=== PATIENT | female | born 1945 | race American Indian/Alaskan Native ===

== ENCOUNTER 2017-05-22 02:13 | Emergency (ER) | payer MEDICARE, OTHER ==
--- NOTE | 2017-05-22 03:51 | XRay Report ---
FINAL REPORT PROCEDURE: XR ANKLE 3+V RT TECHNIQUE: RIGHT ankle radiographs, AP, lateral, and oblique views. CPT 75133 HISTORY: pain to rt ankle x 2 days, old Fx, get report COMPARISON: No prior studies are available for comparison. FINDINGS: There is been previous internal fixation. A plate and multiple screws stabilize distal fibula. Four screws traverse the region of the distal tibia. No acute fracture is identified. Mild soft tissue swelling diffusely IMPRESSION: Previous internal fixation of a right ankle fracture. No acute fracture is identified. Mild diffuse soft tissue swelling..
--- NOTE | 2017-05-22 03:52 | XRay Report ---
FINAL REPORT PROCEDURE: XR FOOT 3+V RT TECHNIQUE: RIGHT foot radiographs, AP, lateral, and oblique views. CPT 97400 HISTORY: pain to rt ankle x 2 days, old Fx, get report COMPARISON: No prior studies are available for comparison. FINDINGS: Fracture (s) and/or Dislocation(s): No acute fracture or dislocation. Previous internal fixation of the distal tibia and fibula.. Alignment: Normal . Joint space(s): Normal . Soft tissues: Mild diffuse soft tissue swelling. Bone mineralization: Normal . Foreign bodies: None . Calcaneal spurring: None . IMPRESSION: There is no evidence of an acute fracture of the foot. Mild diffuse soft tissue swelling..
[2017-05-22] MEDS ORDERED: MOTRIN PO ONE (05:12)
--- NOTE | 2017-05-22 05:12 | Emergency Department Report ---
ED Lower Extremity HPI - General Chief Complaint: Extremity Injury, Lower Stated Complaint: RIGHT ANKLE PAIN Time Seen by Provider: 05/22/17 05:11 Source: patient, EMS Mode of arrival: Stretcher Limitations: No Limitations - History of Present Illness Initial Comments: Patient reports that she fractured her ankle and had surgery that was done by Dr. Babatunde Miller. She says she is experiencing an increase in pain to the old fracture site of her right foot for the past 2 days that is worse at night. She says she follows up with Dr. Miller's office and they're supposed to be ordering her a walker, medical supplies and they're not doing what they're supposed to do. She states she took the ambulance here because she was in pain. She says she was on Ultram that Dr. Miller put her on but she doesn't have anymore. Patient says she is allergic to codeine but she is taken tramadol after her surgery. Pain is worse with movement better with rest. Patient is wearing orthopedic boot. Denies any radiation of pain to upper extremity pain is localized to right ankle. Patient denies any new injury and denies any falling. MD Complaint: other (right ankle pain) Onset/Timin -: days(s) Injury: Ankle: Right (pain) Type of Injury: other (patient fractured her ankle previously and she is wearing up for splint and and been followed by Dr. Miller) Place: home Severity: severe Severity scale (0 -10): 8 Improves With: immobilization, rest Worsens With: weight bearing, movement, palpation Context: other (status post surgery with ankle splint) Associated Symptoms: able to partially bear weight. denies: snap/pop sensation , swelling, numbness, tingling, ambulatory Treatments Prior to Arrival: splint - Related Data Previous Rx's Medication Instructions Recorded Last Taken Type Multivitamin Tab [Multiple Vitamin 1 each PO QDAY 30 Days tablet 12/03/1401/04 Rx TAB (Theragran)] HYDROcodone/APAP 7.5-325 [[place] 1 each PO Q8HR PRN #15 tablet 01/05/17 Unknown Rx 7.5-325 mg TAB] Ibuprofen [Motrin] 800 mg PO Q8HR PRN #15 tablet 01/05/17 Unknown Rx Ondansetron [Zofran TAB] 4 mg PO Q8HR PRN #15 tablet 01/05/17 Unknown Rx Folic Acid [Folvite] 1 mg PO QDAY #30 tablet 01/10/17 Unknown Rx Sertraline [Zoloft] 25 mg PO QDAY 30 Days tablet 01/10/17 Unknown Rx Thiamine [Vitamin B-1] 100 mg PO QDAY #30 tablet 01/10/17 Unknown Rx traZODone [Desyrel] 50 mg PO QHS #30 tablet 01/10/17 Unknown Rx traMADol [Ultram] 50 mg PO Q6HR PRN #12 tablet 05/22/17 Unknown Rx Allergies Allergy/AdvReac Type Severity Reaction Status Date / Time codeine Allergy Swelling Verified 12/02/14 05:36 penicillin Allergy Swelling Verified 12/02/14 05:36 ibuprofen [From Motrin] AdvReac Unknown Verified 05/22/17 05:58 ED Review of Systems ROS: Stated complaint: RIGHT ANKLE PAIN Other details as noted in HPI Comment: All other systems reviewed and negative Constitutional: no symptoms reported ENT: denies: dental pain, congestion Respiratory: no symptoms reported Cardiovascular: denies: chest pain, palpitations, dyspnea on exertion, orthopnea , edema, syncope, paroxysmal nocturnal dyspnea Genitourinary: denies: urgency, dysuria, frequency, hematuria, discharge Musculoskeletal: joint swelling, arthralgia. denies: back pain, myalgia Skin: denies: rash Neurological: abnormal gait. denies: headache, weakness, numbness, paresthesias , confusion, vertigo ED Past Medical Hx - Past Medical History Previous Medical History?: Yes Hx Hypertension: Yes Hx Psychiatric Treatment: Yes Hx HIV: No Additional medical history: hypothyroidism - Surgical History Past Surgical History?: Yes Hx Cholecystectomy: Yes - Family History Family history: hypertension - Social History Smoking Status: Never Smoker Substance Use Type: None - Medications Home Medications: Home Medications Medication Instructions Recorded Confirmed Last Taken Type Multivitamin Tab [Multiple Vitamin 1 each PO QDAY 30 Days tablet 12/03/1401/0701/04/17 Rx TAB (Theragran)] HYDROcodone/APAP 7.5-325 [[place] 1 each PO Q8HR PRN #15 tablet 01/05/17 Unknown Rx 7.5-325 mg TAB] Ibuprofen [Motrin] 800 mg PO Q8HR PRN #15 tablet 01/05/17 Unknown Rx Ondansetron [Zofran TAB] 4 mg PO Q8HR PRN #15 tablet 01/05/17 Unknown Rx Folic Acid [Folvite] 1 mg PO QDAY #30 tablet 01/10/17 Unknown Rx Sertraline [Zoloft] 25 mg PO QDAY 30 Days tablet 01/10/17 Unknown Rx Thiamine [Vitamin B-1] 100 mg PO QDAY #30 tablet 01/10/17 Unknown Rx traZODone [Desyrel] 50 mg PO QHS #30 tablet 01/10/17 Unknown Rx traMADol [Ultram] 50 mg PO Q6HR PRN #12 tablet 05/22/17 Unknown Rx ED Physical Exam - General Limitations: No Limitations General appearance: alert, in no apparent distress - Head Head exam: Present: atraumatic, normocephalic, normal inspection - Eye Eye exam: Present: normal appearance, PERRL, EOMI. Absent: periorbital swelling , periorbital tenderness Pupils: Present: normal accommodation - ENT ENT exam: Present: normal exam, normal orophraynx, mucous membranes moist - Neck Neck exam: Present: normal inspection, full ROM, other (no C-spine tenderness). Absent: tenderness, meningismus, lymphadenopathy, thyromegaly - Respiratory Respiratory exam: Present: normal lung sounds bilaterally. Absent: respiratory distress, chest wall tenderness, accessory muscle use - Cardiovascular Cardiovascular Exam: Present: normal rhythm, tachycardia, normal heart sounds, other (elevated blood pressure with 5 blood pressure). Absent: systolic murmur , diastolic murmur - GI/Abdominal GI/Abdominal exam: Present: soft, normal bowel sounds. Absent: distended, tenderness, guarding, rebound, rigid, organomegaly, mass, bruit, pulsatile mass , hernia - Extremities Exam Extremities exam: Present: tenderness, normal capillary refill, other (no clubbing cyanosis or edema. +2 pulses all extremities. No neurovascular compromise. Patient with limited movement to right ankle due to fracture and she has splints to area. She has good color, sensation movement and temperature to area.). Absent: normal inspection, full ROM, pedal edema, joint swelling, calf tenderness - Expanded Lower Extremity Exam Right Hip exam: Present: normal inspection, full ROM, pelvic stability. Absent: tenderness, swelling, abrasion, laceration, ecchymosis, deformity, crepidus, dislocation, erythema, external rotation, internal rotation, shortening Upper Leg exam: Present: normal inspection, full ROM. Absent: tenderness, swelling, abrasion, laceration, ecchymosis, deformity, crepidus, dislocation, erythema Knee exam: Present: normal inspection, full ROM, full knee extension. Absent: tenderness, swelling, abrasion, laceration, ecchymosis, deformity, crepidus, dislocation, erythema, effusion, pain w/ pronation/supination, posterior draw sign, pain/laxity with valgus, pain/laxity with varus Lower Leg exam: Present: normal inspection, full ROM. Absent: tenderness, swelling, abrasion, laceration, ecchymosis, deformity, crepidus, dislocation, erythema, palpable cord, Jose's sign Ankle exam: Present: tenderness (tender to palpate to right ankle.). Absent: normal inspection, full ROM (admitted range of motion to right ankle due to recent fracture with splinting.), swelling, abrasion, laceration, ecchymosis, deformity, crepidus, dislocation, erythema Foot/Toe exam: Present: normal inspection, full ROM. Absent: tenderness, swelling, abrasion, laceration, ecchymosis, deformity, crepidus, dislocation, erythema, amputation, puncture wound, foreign body, calcaneal tenderness, tenderness at base of 5th metatarsal, nail avulsion, subungual hematoma Neuro vascular tendon exam: Present: no vascular compromise, motor deficit ( limited movement due to pain and ankle fracture.), significant pain with passive ROM of distal joint. Absent: pulse deficit, abnormal cap refill, sensory deficit, tendon deficit, extremity cold to touch, pallor, abnormal 2- point discrimination, decreased fine/light touch, foot drop, peroneal nerve deficit Gait: Positive: antalgic - Back Exam Back exam: Present: normal inspection, full ROM, other (patient able to ambulate with walker without any difficulties.). Absent: tenderness, CVA tenderness (R), CVA tenderness (L), muscle spasm, paraspinal tenderness, vertebral tenderness, rash noted - Neurological Exam Neurological exam: Present: alert, oriented X3, abnormal gait (abnormal gait to left lower extremity at ankle and foot due to previous fracture in the healing process patient has splint on.), motor sensory deficit (sensory deficit but patient had limited movement to left ankle due to recent fracture and splinted) , reflexes normal - Psychiatric Psychiatric exam: Present: normal affect, normal mood - Skin Skin exam: Present: warm, dry, intact, normal color. Absent: rash ED Course Vital Signs 05/22/17 05/22/17 02:16 06:34 Temperature 98.1 F 97.7 F Pulse Rate 108 H 97 H Respiratory 20 20 Rate Blood Pressure 158/113 Blood Pressure 143/93 [Right] O2 Sat by Pulse 98 100 Oximetry - Reevaluation(s) Reevaluation #1: 05/22/17 06:23 Patient received Motrin 600 mg Reevaluation #2: 05/22/17 07:00 Patient received Ultram 50 mg by mouth prior to discharge due to pain. - Orthopedic Splinting/Casting Injury #1 Side: right Lower Extremity Injury Location: ankle, foot Other Orthopedic Equipment: walker ED Lower Extremity MDM - Radiology Data Radiology results: report reviewed X-ray of right foot reveals no evidence of fracture or dislocation but she does have soft tissue swelling. X-ray of right ankle reveals internal fixation of right ankle fracture. No acute fracture and mild soft tissue swelling identified. - Medical Decision Making ED course: A CT scan here status post ankle pain for 2 days. She has had ankle fracture to her right ankle in the past with evidence of internal fixation device femur x-ray. X-ray of right foot and ankle reveals no acute fracture but patient does have internal fixation device to right ankle and she has diffuse, mild soft tissue swelling to both right ankle and foot. His was discussed patient. She does have a boot as a splint on and she's been followed by Dr. Miller's. She reported that she is having increasing pain over the last 2 days without any new injuries. She says that she's been trying to have Dr. Miller office set up for a walker and commode and other devices but they're taking a long time to do it. She says she was in tramadol after surgery despite being allergic to codeine and she is also also taken ibuprofen which she says she is allergic to also. Her allergic to ibuprofen is nausea with stomach upset. She had ibuprofen in emergency room 600 mg without any adverse reaction. Patient took ambulance to the emergency room because she states she didn't have any other way and worse been set up for her to go back home. Patient discharged from ED with prescription for Ultram and she was given a walker and demonstrated use which she uses very well. I discussed with her that she needs to call Dr. Miller office later this morning to get follow-up appointment and to set up for other equipment that she needed. Critical care attestation.: If time is entered above; I have spent that time in minutes in the direct care of this critically ill patient, excluding procedure time. ED Disposition Clinical Impression: Pain in right ankle and joints of right foot, H/O fracture of ankle Disposition: TO HOME OR SELFCARE Is pt being admited?: No Does the pt Need Aspirin: No Condition: Stable Instructions: Splint Care (ED), Arthralgia (ED) Additional Instructions: Please follow up with Dr. Miller orthopedist Dr. quiñonez later this morning at schedule appointment Take Ultram for pain but please do not drive or operate heavy machinery while doing this because this medication cause drowsiness Prescriptions: traMADol [Ultram] 50 mg PO Q6HR PRN #12 tablet PRN Reason: Pain Referrals: LC DODD MD [Primary Care Provider] - 2-3 Days BABATUNDE MILLER MD [Staff Physician] - 05/24/17
[2017-05-22] MEDS ORDERED: ULTRAM ONE (06:43)
[2017-05-22] MEDS ORDERED: ULTRAM PO ONE (06:44)
[2017-05-22 06:58] VITALS: BP 143/93
== END 2017-05-22 10:30 | disposition home or self-care (01) ==
LOC: ED 02:13
DX: M25.571 Pain in right ankle and joints of right foot (principal); I10 Essential (primary) hypertension; E03.9 Hypothyroidism, unspecified; X58.XXXA Exposure to other specified factors, initial encounter; Y93.89 Activity, other specified; Y92.89 Other specified places as the place of occurrence of the external cause; Y99.8 Other external cause status; Z88.0 Allergy status to penicillin; Z88.5 Allergy status to narcotic agent; Z88.6 Allergy status to analgesic agent
CPT/HCPCS: 99283

== ENCOUNTER 2017-06-01 13:09 | Emergency (ER) | payer MEDICARE, OTHER ==
--- NOTE | 2017-06-01 16:26 | Emergency Department Report ---
ED Shortness of Breath HPI - General Chief Complaint: Dyspnea/Respdistress Stated Complaint: CHEST PAIN Time Seen by Provider: 06/01/17 16:10 Source: EMS Mode of arrival: Stretcher Limitations: No Limitations - History of Present Illness Initial Comments: 72-year-old female poor historian here stating that she started having shortness of breath or chest pain this morning. She is not sure if it was sudden in onset and gradual she did have recent surgery on her lower extremity the last several months. She has had some intermittent lower extremity pain. She is here for evaluation of shortness of breath and chest pain that she had earlier this morning and her neighbor called 911. She does smoke she has a history of hypertension and thyroid problems she denies any history of inhaler COPD or asthma, no recent fever no cough no recent travel, not sure what makes it betrter or worse MD Complaint: shortness of breath, chest pain Severity: mild, moderate Quality: sharp Worsens With: nothing Context: recent URI Associated Symptoms: chest pain, lower extremity pain - Related Data Previous Rx's Medication Instructions Recorded Last Taken Type Multivitamin Tab [Multiple Vitamin 1 each PO QDAY 30 Days tablet 12/03/1401/04 Rx TAB (Theragran)] HYDROcodone/APAP 7.5-325 [[place] 1 each PO Q8HR PRN #15 tablet 01/05/17 Unknown Rx 7.5-325 mg TAB] Ibuprofen [Motrin] 800 mg PO Q8HR PRN #15 tablet 01/05/17 Unknown Rx Ondansetron [Zofran TAB] 4 mg PO Q8HR PRN #15 tablet 01/05/17 Unknown Rx Folic Acid [Folvite] 1 mg PO QDAY #30 tablet 01/10/17 Unknown Rx Sertraline [Zoloft] 25 mg PO QDAY 30 Days tablet 01/10/17 Unknown Rx Thiamine [Vitamin B-1] 100 mg PO QDAY #30 tablet 01/10/17 Unknown Rx traZODone [Desyrel] 50 mg PO QHS #30 tablet 01/10/17 Unknown Rx traMADol [Ultram] 50 mg PO Q6HR PRN #12 tablet 05/22/17 Unknown Rx ALBUTEROL Inhaler [ProAir HFA 1 puff IH TID PRN #1 inha 06/01/17 Unknown Rx Inhaler] Sulfamethoxazole/Trimethoprim 1 each PO BID #14 tablet 06/01/17 Unknown Rx [Bactrim DS TAB] predniSONE [Deltasone] 50 mg PO QDAY #5 tab 06/01/17 Unknown Rx Allergies Allergy/AdvReac Type Severity Reaction Status Date / Time codeine Allergy Swelling Verified 12/02/14 05:36 penicillin Allergy Swelling Verified 12/02/14 05:36 ibuprofen [From Motrin] AdvReac Unknown Verified 05/22/17 05:58 ED Review of Systems ROS: Stated complaint: CHEST PAIN Other details as noted in HPI ED Past Medical Hx - Past Medical History Hx Hypertension: Yes Hx Psychiatric Treatment: Yes Hx HIV: No Additional medical history: hypothyroidism - Surgical History Hx Cholecystectomy: Yes - Social History Smoking Status: Current Some Day Smoker Substance Use Type: None - Medications Home Medications: Home Medications Medication Instructions Recorded Confirmed Last Taken Type Multivitamin Tab [Multiple Vitamin 1 each PO QDAY 30 Days tablet 12/03/1401/0701/04/17 Rx TAB (Theragran)] HYDROcodone/APAP 7.5-325 [[place] 1 each PO Q8HR PRN #15 tablet 01/05/17 Unknown Rx 7.5-325 mg TAB] Ibuprofen [Motrin] 800 mg PO Q8HR PRN #15 tablet 01/05/17 Unknown Rx Ondansetron [Zofran TAB] 4 mg PO Q8HR PRN #15 tablet 01/05/17 Unknown Rx Folic Acid [Folvite] 1 mg PO QDAY #30 tablet 01/10/17 Unknown Rx Sertraline [Zoloft] 25 mg PO QDAY 30 Days tablet 01/10/17 Unknown Rx Thiamine [Vitamin B-1] 100 mg PO QDAY #30 tablet 01/10/17 Unknown Rx traZODone [Desyrel] 50 mg PO QHS #30 tablet 01/10/17 Unknown Rx traMADol [Ultram] 50 mg PO Q6HR PRN #12 tablet 05/22/17 Unknown Rx ALBUTEROL Inhaler [ProAir HFA 1 puff IH TID PRN #1 inha 06/01/17 Unknown Rx Inhaler] Sulfamethoxazole/Trimethoprim 1 each PO BID #14 tablet 06/01/17 Unknown Rx [Bactrim DS TAB] predniSONE [Deltasone] 50 mg PO QDAY #5 tab 06/01/17 Unknown Rx ED Physical Exam - General Limitations: No Limitations General appearance: alert, anxious, in distress, other (slightly dyspneic on exam complaints of intermittent shortness of breath with occasional chest pain) - Head Head exam: Present: atraumatic, normocephalic - Eye Eye exam: Present: PERRL, EOMI Pupils: Present: normal accommodation - ENT ENT exam: Present: normal exam, normal orophraynx - Neck Neck exam: Present: normal inspection. Absent: tenderness, meningismus - Respiratory Respiratory exam: Present: wheezes, rhonchi, chest wall tenderness, prolonged expiratory. Absent: stridor, accessory muscle use, decreased breath sounds - Cardiovascular Cardiovascular Exam: Present: regular rate, normal rhythm, normal heart sounds. Absent: rubs, gallop - GI/Abdominal GI/Abdominal exam: Present: soft. Absent: distended, tenderness, guarding, rebound, rigid, mass, bruit, pulsatile mass - Extremities Exam Extremities exam: Present: pedal edema, calf tenderness - Back Exam Back exam: Absent: CVA tenderness (L), muscle spasm, paraspinal tenderness, vertebral tenderness - Neurological Exam Neurological exam: Present: alert, oriented X3, CN II-XII intact. Absent: motor sensory deficit - Psychiatric Psychiatric exam: Present: normal affect. Absent: anxious, manic, homicidal ideation, suicidal ideation ED Course Vital Signs 06/01/17 06/01/17 06/01/17 14:49 15:40 15:45 Temperature Pulse Rate 104 H Respiratory 20 Rate Blood Pressure 162/92 Blood Pressure [Left] O2 Sat by Pulse 99 95 96 Oximetry 06/01/17 06/01/17 06/01/17 16:00 16:15 16:17 Temperature 97.9 F Pulse Rate 73 75 Respiratory 18 20 Rate Blood Pressure 140/89 140/89 Blood Pressure 124/80 [Left] O2 Sat by Pulse 97 Oximetry 06/01/17 06/01/17 06/01/17 16:18 16:30 17:24 Temperature Pulse Rate 77 76 Respiratory 20 16 Rate Blood Pressure 140/89 140/89 Blood Pressure [Left] O2 Sat by Pulse 97 Oximetry 06/01/17 06/01/17 06/01/17 17:31 17:45 18:00 Temperature Pulse Rate 82 84 88 Respiratory 24 13 12 Rate Blood Pressure 140/89 140/89 Blood Pressure 117/88 [Left] O2 Sat by Pulse 96 100 98 Oximetry 06/01/17 06/01/17 06/01/17 18:01 18:15 18:31 Temperature Pulse Rate 67 68 79 Respiratory 17 27 H 18 Rate Blood Pressure 117/88 140/89 140/89 Blood Pressure [Left] O2 Sat by Pulse 98 98 100 Oximetry 06/01/17 06/01/17 06/01/17 18:45 19:00 19:15 Temperature Pulse Rate 75 79 83 Respiratory 17 11 L 14 Rate Blood Pressure 140/89 115/76 115/76 Blood Pressure [Left] O2 Sat by Pulse 100 92 99 Oximetry 06/01/17 06/01/17 06/01/17 19:20 19:31 19:45 Temperature 98.1 F Pulse Rate 71 78 69 Respiratory 12 13 22 Rate Blood Pressure 117/84 117/84 Blood Pressure 117/84 [Left] O2 Sat by Pulse 100 100 100 Oximetry 06/01/17 06/01/17 06/01/17 20:00 20:15 20:31 Temperature Pulse Rate 83 81 84 Respiratory 23 25 H 20 Rate Blood Pressure 106/75 106/75 106/75 Blood Pressure [Left] O2 Sat by Pulse 100 100 Oximetry 06/01/17 06/01/17 06/01/17 20:45 21:01 21:48 Temperature Pulse Rate 74 82 78 Respiratory 20 11 L Rate Blood Pressure 106/75 106/75 106/75 Blood Pressure [Left] O2 Sat by Pulse Oximetry 06/01/17 06/01/17 06/01/17 22:00 22:15 22:35 Temperature Pulse Rate 70 69 69 Respiratory 13 20 20 Rate Blood Pressure 115/79 115/79 Blood Pressure [Left] O2 Sat by Pulse 100 100 99 Oximetry - Reevaluation(s) Reevaluation #1: 06/01/17 23:51 Patient was brought to room placed on cardiac surgeon. She did have laboratory studies and a DuoNeb as well as ultrasound bilateral as well as CTA ED Medical Decision Making - Lab Data Result diagrams: 06/01/17 16:12 06/01/17 16:12 - EKG Data -: EKG Interpreted by Dc EKG shows normal: sinus rhythm Rate: normal - EKG Data Interpretation: nonspecific ST-T wave ben, other (no acute ischemic change) - Radiology Data Radiology results: report reviewed - Medical Decision Making Patient did have improvement in symptoms with DuoNeb however with chest pain shortness of breath and recent surgery we did elect to evaluate for DVT PE. Bilateral Doppler ultrasound venous were negative on the lower extremity. She did have recent surgery. CTA was also process no PE. Troponin was negative EKG is nondiagnostic. Symptoms are consistent with atypical chest pain with likely reactive airway disease. Urinalysis does look like she probably has a UTI as well she will be discharged with antibiotics and inhaler with instructions for outpatient follow-up for further evaluation of chest pain Critical care attestation.: If time is entered above; I have spent that time in minutes in the direct care of this critically ill patient, excluding procedure time. ED Disposition Clinical Impression: Reactive airway disease, Atypical chest pain, UTI (urinary tract infection) Disposition: TO HOME OR SELFCARE Is pt being admited?: No Condition: Stable Instructions: Chest Pain (ED), Urinary Tract Infection in Women (ED), Dyspnea ( ED) Additional Instructions: Return immediately if new or alarming symptoms or call 911 see her doctor in 2 days Prescriptions: ALBUTEROL Inhaler [ProAir HFA Inhaler] 1 puff IH TID PRN #1 inha PRN Reason: Shortness Of Breath predniSONE [Deltasone] 50 mg PO QDAY #5 tab Sulfamethoxazole/Trimethoprim [Bactrim DS TAB] 1 each PO BID #14 tablet Referrals: PRIMARY CARE, [Primary Care Provider] - 3-5 Days ANNMARIE SINGH MD [Staff Physician] - 3-5 Days Time of Disposition: 00:00
[2017-06-01 16:39] LABS: Bacteria,Urine 2+ /HPF (Negative); Bilirubin,Urine SM (Negative); Blood,Urine NEG (Negative); Mucus,Urine FEW /HPF; Nitrite,Urine NEG (Negative)
[2017-06-01 16:43] LABS: Color,Urine Dark Yellow (Yellow)
[2017-06-01 16:44] LABS: Basophils % (Auto) 0.5 % (0.0-1.8); Eosinophils # (Auto) 0.1 K/mm3 (0.0-0.4); Eosinophils % (Auto) 1.7 % (0.0-4.3); Hemoglobin 14.8 gm/dl (10.1-14.3); Lymphocytes # (Auto) 2.9 K/mm3 (1.2-5.4); Lymphocytes % (Auto) 45.3 % (13.4-35.0); Mean Corpuscular HGB Conc 34 % (30-34); Mean Corpuscular Hemoglobin 37 pg (28-32); Mean Corpuscular Volume 106 fl (79-97); Monocytes # (Auto) 0.4 K/mm3 (0.0-0.8); Monocytes % (Auto) 6.7 % (0.0-7.3); Platelet Count 186 K/mm3 (140-440); Red Blood Count 4.05 M/mm3 (3.65-5.03); Red Cell Distribution Width 16.3 % (13.2-15.2)
[2017-06-01 16:45] LABS: Ictotest,Urine Negative (Negative)
[2017-06-01 16:55] LABS: BUN/Creatinine Ratio 14; Blood Urea Nitrogen 11 mg/dL (7-17); Calcium 8.8 mg/dL (8.4-10.2); Hemolysis Index 41
[2017-06-01 17:04] LABS: Partial Thromboplastin Time 25.2 Sec. (24.2-36.6)
[2017-06-01] MEDS ORDERED: DUONEB *Not for PRN Use IH ONE (17:39)
[2017-06-01] MEDS ORDERED: XANAX PO ONE (17:50)
[2017-06-01] MEDS ORDERED: KCL 10MEQ/100ML 10 MEQ/100 ML BAG IV ONE (18:37)
[2017-06-01] MEDS ORDERED: K-DUR PO ONE (18:37)
--- NOTE | 2017-06-01 19:58 | XRay Report ---
FINAL REPORT PROCEDURE: XR CHEST 1V AP TECHNIQUE: Chest radiograph anteroposterior view. CPT 91351 HISTORY: Shortness of breath. COMPARISON: No prior studies are available for comparison. FINDINGS: Heart: Normal. Mediastinum/Vessels: Aortic tortuosity. Lungs/Pleural space: Normal. Bony thorax: Mild osteopenia. Mild degenerative changes of the spine. Life support devices: None. IMPRESSION: No radiographic evidence of acute cardiopulmonary disease.
[2017-06-01] MEDS ORDERED: NACL ONE (20:20)
[2017-06-01] MEDS ORDERED: KCL 10 MEQ in NACL 0.9% 100 ML IV ONE (20:30)
[2017-06-01] MEDS ORDERED: NACL 0.9% 250ML 250 ML IV ONE (22:10)
[2017-06-01] MEDS ORDERED: NACL 0.9% 250ML 250 ML ONE (22:14)
--- NOTE | 2017-06-01 23:09 | Cat Scan Report ---
FINAL REPORT PROCEDURE: CT ANGIO CHEST TECHNIQUE: Computerized tomographic angiography of the chest was performed after the IV injection of iodinated nonionic contrast including image processing. The image data was postprocessed using 2-dimensional multiplanar reformatted (MPR) and 3-dimensional (MIP and/or volume rendered) techniques. HISTORY: dypsnea/recent surg COMPARISON: No prior studies are available for comparison. FINDINGS: The thyroid gland is not fully imaged but is bilaterally diffusely prominent and extends into upper mediastinum. Heart and pericardium: Normal. Thoracic aorta: Normal. Pulmonary vasculature: Normal. Lymph nodes: No enlarged thoracic lymph nodes. Lungs: There is linear atelectasis or scarring in bilateral lung bases. Pleural space: No effusion, thickening, or pneumothorax. Musculoskeletal structures: Multilevel degenerative disc changes of the thoracolumbar spine. Upper abdominal structures: No significant abnormality. IMPRESSION: No evidence of pulmonary emboli. Thyromegaly
[2017-06-02 00:15] VITALS: BP 122/80
--- NOTE | 2017-06-02 11:48 | Vascular Lab Report ---
LOWER EXTREMITY VENOUS DUPLEX: REASON FOR EXAM: Pain and swelling of the lower extremities; shortness of breath. COMMENTS ON THE RIGHT: All veins visualized are freely compressible without evidence of internal echogenicity. Flow is spontaneous and phasic throughout. COMMENTS ON THE LEFT: All veins visualized are freely compressible without evidence of internal echogenicity. Flow is spontaneous and phasic throughout. IMPRESSION: No evidence of acute or chronic deep venous thrombosis in either lower extremity.
== END 2017-06-02 00:52 | disposition home or self-care (01) ==
LOC: ED 13:09
DX: N39.0 Urinary tract infection, site not specified (principal); J45.909 Unspecified asthma, uncomplicated; R07.89 Other chest pain; I10 Essential (primary) hypertension; F17.200 Nicotine dependence, unspecified, uncomplicated
CPT/HCPCS: 36415; 71045; 71275; 80048; 81001; 83880; 84443; 84484; 85025; 85379; 85610; 85730; 93005; 93010; 93970; 96365; 99285; J3480; J7050; Q9967

== ENCOUNTER 2017-06-02 13:30 | Outpatient (CLI) | payer MEDICARE ==
[2017-06-02 14:32] LABS: Chol/HDL Ratio 4.17 %; Uric Acid 6.5 mg/dL (3.5-7.6)
== END 2017-06-02 13:31 | disposition home or self-care (01) ==
LOC: LAB 13:30
PROVIDERS: ATTEND Internal Medicine
DX: Z00.01 Encounter for general adult medical examination with abnormal findings (principal); I10 Essential (primary) hypertension; E03.9 Hypothyroidism, unspecified; F41.9 Anxiety disorder, unspecified; G47.00 Insomnia, unspecified; Z79.899 Other long term (current) drug therapy
CPT/HCPCS: 36415; 80061; 82607; 83036; 84436; 84550

== ENCOUNTER 2018-10-28 16:36 | Emergency (ER) | payer MEDICARE ==
[2018-10-28] MEDS ORDERED: ZOFRAN IV ONE (18:01)
[2018-10-28] MEDS ORDERED: NACL 0.9% 1000 ML 1,000 ML IV ONE ×2 (18:01→20:23)
[2018-10-28] MEDS ORDERED: PEPCID IV ONE (18:02)
[2018-10-28] MEDS ORDERED: BENTYL IM ONE (18:02)
--- NOTE | 2018-10-28 18:07 | Emergency Department Report ---
ED N/V/D HPI - General Chief complaint: Nausea/Vomiting/Diarrhea Stated complaint: VOMITING Time Seen by Provider: 10/28/18 17:55 Source: EMS Mode of arrival: Stretcher Limitations: No Limitations - History of Present Illness Initial comments: Patient is a 73-year-old female past medical history hypertension and hypothyroidism who is complaining of nausea vomiting diarrhea. Patient states that 6 days ago she began having nausea vomiting. Patient states she's vomited all day. The vomiting subsided briefly but then she started havi ng diarrhea for several days. Patient states that yesterday the vomiting returned and she was having both nausea vomiting and diarrhea. Patient states she has a burning GERD-like sensation in epigastrium and doesn't radiate into the chest intermittently. Patient states there is mild shortness of breath when she gets these episodes of burning. Patient has some crampy abdominal pain when she has a bowel movement. Patient denies any fevers chills but does state she has some weakness. Patient's was transported via EMS after a neighbor check went to check on her and found her in the bathroom of feeling ill. - Related Data Previous Rx's Medication Instructions Recorded Last Taken Type ALBUTEROL Inhaler (OR & NICU) 1 puff IH TID PRN #1 inha 04/07/18 Unknown Rx [ProAir HFA Inhaler] Acetaminophen [Acetaminophen TAB] 650 mg PO Q4H PRN #30 tablet 04/07/18 Unknown Rx AtorvaSTATin [Lipitor] 10 mg PO QHS #30 tablet 04/07/18 Unknown Rx Folic Acid [Folvite] 1 mg PO QDAY #30 tablet 04/07/18 Unknown Rx Levothyroxine [Synthroid] 150 mcg PO DAILY@0600 #30 tablet 04/07/18 Unknown Rx Multivitamin Tab [Multiple Vitamin 1 each PO QDAY 30 Days tablet 04/07/18 Unknown Rx TAB (Theragran)] Sertraline [Zoloft] 25 mg PO QDAY 30 Days tablet 04/07/18 Unknown Rx Thiamine [Vitamin B-1] 100 mg PO QDAY #30 tablet 04/07/18 Unknown Rx traZODone [Desyrel] 50 mg PO QHS #30 tablet 04/07/18 Unknown Rx ALPRAZolam [Xanax TAB] 0.25 mg PO BID PRN #10 tab 10/28/18 Unknown Rx Dicyclomine [Bentyl] 20 mg PO QID #10 tablet 10/28/18 Unknown Rx Famotidine [Pepcid] 20 mg PO BID #20 tablet 10/28/18 Unknown Rx Metoclopramide HCl [Reglan TAB] 5 mg PO TIDAC #10 tablet 10/28/18 Unknown Rx Potassium Chloride [K-Dur] 20 meq PO BID #6 tab 10/28/18 Unknown Rx Allergies Allergy/AdvReac Type Severity Reaction Status Date / Time codeine Allergy Swelling Verified 12/02/14 05:36 penicillin Allergy Swelling Verified 12/02/14 05:36 ibuprofen [From Motrin] AdvReac Unknown Verified 05/22/17 05:58 ED Review of Systems ROS: Stated complaint: VOMITING Other details as noted in HPI Comment: All other systems reviewed and negative ED Past Medical Hx - Past Medical History Hx Hypertension: Yes Hx Psychiatric Treatment: Yes Hx HIV: No Additional medical history: hypothyroidism - Surgical History Hx Cholecystectomy: Yes Additional Surgical History: R ankle, R tibia - Social History Smoking Status: Unknown if ever smoked - Medications Home Medications: Home Medications Medication Instructions Recorded Confirmed Last Taken Type ALBUTEROL Inhaler (OR & NICU) 1 puff IH TID PRN #1 inha 04/07/18 Unknown Rx [ProAir HFA Inhaler] Acetaminophen [Acetaminophen TAB] 650 mg PO Q4H PRN #30 tablet 04/07/18 Unknown Rx AtorvaSTATin [Lipitor] 10 mg PO QHS #30 tablet 04/07/18 Unknown Rx Folic Acid [Folvite] 1 mg PO QDAY #30 tablet 04/07/18 Unknown Rx Levothyroxine [Synthroid] 150 mcg PO DAILY@0600 #30 tablet 04/07/18 Unknown Rx Multivitamin Tab [Multiple Vitamin 1 each PO QDAY 30 Days tablet 04/07/18 Unknown Rx TAB (Theragran)] Sertraline [Zoloft] 25 mg PO QDAY 30 Days tablet 04/07/18 Unknown Rx Thiamine [Vitamin B-1] 100 mg PO QDAY #30 tablet 04/07/18 Unknown Rx traZODone [Desyrel] 50 mg PO QHS #30 tablet 04/07/18 Unknown Rx ALPRAZolam [Xanax TAB] 0.25 mg PO BID PRN #10 tab 10/28/18 Unknown Rx Dicyclomine [Bentyl] 20 mg PO QID #10 tablet 10/28/18 Unknown Rx Famotidine [Pepcid] 20 mg PO BID #20 tablet 10/28/18 Unknown Rx Metoclopramide HCl [Reglan TAB] 5 mg PO TIDAC #10 tablet 10/28/18 Unknown Rx Potassium Chloride [K-Dur] 20 meq PO BID #6 tab 10/28/18 Unknown Rx ED Physical Exam - General Limitations: No Limitations General appearance: alert, lethargic - Head Head exam: Present: atraumatic, normocephalic - Eye Eye exam: Present: normal appearance, PERRL, EOMI - ENT ENT exam: Present: mucous membranes moist - Neck Neck exam: Present: normal inspection, tenderness - Respiratory Respiratory exam: Present: normal lung sounds bilaterally. Absent: respiratory distress, wheezes, rales, rhonchi - Cardiovascular Cardiovascular Exam: Present: regular rate, normal rhythm, normal heart sounds. Absent: systolic murmur, diastolic murmur, rubs, gallop - GI/Abdominal GI/Abdominal exam: Present: soft, normal bowel sounds. Absent: distended, tenderness, guarding, rebound, rigid - Extremities Exam Extremities exam: Present: normal inspection - Back Exam Back exam: Present: normal inspection - Neurological Exam Neurological exam: Present: alert, oriented X3 - Psychiatric Psychiatric exam: Present: normal affect, normal mood - Skin Skin exam: Present: warm, dry, intact, normal color. Absent: rash ED Course Vital Signs 10/28/18 10/28/18 10/28/18 15:00 16:45 19:05 Temperature 99.6 F 98 F Pulse Rate 95 H 89 Respiratory 16 16 Rate Blood Pressure 127/80 Blood Pressure 121/89 134/99 [Right] O2 Sat by Pulse 98 97 Oximetry 10/28/18 21:01 Temperature Pulse Rate 78 Respiratory 16 Rate Blood Pressure 159/99 Blood Pressure [Right] O2 Sat by Pulse 98 Oximetry ED Medical Decision Making - Lab Data Result diagrams: 10/28/18 18:08 10/28/18 18:08 Lab Results 10/28/18 10/28/18 Range/Units 18:08 18:08 WBC 10.4 (4.5-11.0) K/mm3 RBC 4.22 (3.65-5.03) M/mm3 Hgb 14.9 H (10.1-14.3) gm/dl Hct 41.7 (30.3-42.9) % MCV 99 H (79-97) fl MCH 35 H (28-32) pg MCHC 36 H (30-34) % RDW 15.1 (13.2-15.2) % Plt Count 215 (140-440) K/mm3 Lymph % (Auto) 16.4 (13.4-35.0) % [place] % (Auto) 3.5 (0.0-7.3) % Eos % (Auto) 0.1 (0.0-4.3) % Baso % (Auto) 0.5 (0.0-1.8) % Lymph # 1.7 (1.2-5.4) K/mm3 [place] # 0.4 (0.0-0.8) K/mm3 Eos # 0.0 (0.0-0.4) K/mm3 Baso # 0.1 (0.0-0.1) K/mm3 Seg Neutrophils % 79.5 H (40.0-70.0) % Seg Neutrophils # 8.3 H (1.8-7.7) K/mm3 Sodium 139 (137-145) mmol/L Potassium 2.7 L* (3.6-5.0) mmol/L Chloride 92.3 L (98-107) mmol/L Carbon Dioxide 32 H (22-30) mmol/L Anion Gap 17 mmol/L BUN 21 H (7-17) mg/dL Creatinine 1.6 H (0.7-1.2) mg/dL Estimated GFR 38 ml/min BUN/Creatinine Ratio 13 % Glucose 112 H (65-100) mg/dL Calcium 9.8 (8.4-10.2) mg/dL Total Bilirubin 0.70 (0.1-1.2) mg/dL AST 40 (5-40) units/L ALT 30 (7-56) units/L Alkaline Phosphatase 82 (35-129) units/L Total Protein 9.3 H (6.3-8.2) g/dL Albumin 4.3 (3.9-5) g/dL Albumin/Globulin Ratio 0.9 % Lipase 20 (13-60) units/L - Radiology Data [facility] [address] [place] [address] Cat Scan Report Signed Patient: BATSHEVA BENAVIDEZ MR#: [id number] : 1945 Acct:[id number] Age/Sex: 73 / F ADM Date: 10/28/18 Loc: ED Attending Dr: Ordering Physician: MAXIMO WORLEY MD Date of Service: 10/28/18 Procedure(s): CT abdomen pelvis w con Accession Number(s): [id number] cc: MAXIMO WORLEY MD CT ABDOMEN AND PELVIS WITH CONTRAST INDICATION: Nausea, vomiting, diarrhea, abdominal pain CONTRAST: 100 cc Omnipaque 300 IV COMPARISON: None available. All CT scans at this location are performed using CT dose reduction for ALARA by means of automated exposure control. FINDINGS: Mild bibasilar atelectatic changes are seen but no areas of consolidation are noted. Small pericardial effusion is seen. Moderate hiatal hernia is noted. No pneumoperitoneum is seen. Mild fatty infiltration of the liver is seen without obvious focal lesion and without significant enlargement. Spleen appears within normal limits. Gallbladder has been removed. No biliary dilatation is seen. Pancreas appears within normal limits. No urinary obstructive changes are seen. No free fluid is seen. Urinary bladder is distended. No masses are seen. The colon through most of its length from the cecum to the distal sigmoid area shows evidence of mild wall thickening though these segments are not well distended and evaluation is made more difficult. No evidence of perforation is seen. No obstructive changes are seen. Small bowel loops do not show wall thickening but many are fluid-filled though not dilated. Appendix is not identified. Visualized portions of the upper superficial femoral vein, profunda femoris vein, common femoral vein, and all of the left iliac veins show some contrast filling but also showed defined central filling defect. Contralateral analogous areas do not show obvious contrast filling for evaluation and the inferior vena cava is not well opacified in its lower portion. IMPRESSION: 1. Findings are concerning for mild colitis affecting most of the colon without obvious complication. 2. Fluid-filled small bowel loops without distention could relate to enteritis but also to adynamic ileus. 3. Well-defined contiguous filling defect is seen through much of the left venous system in the pelvis and upper thigh as described. Phase of contrast on this study is early and this may just represent flow artifact, but I would suggest Doppler examination of the left lower extremity. Signer Name: Jesus Ochoa MD Signed: 10/28/2018 10:21 PM Workstation Name: [id number] Transcribed By: GJ Dictated By: Jesus Ochoa MD Electronically Authenticated By: Jesus Ochoa MD Signed Date/Time: 10/28/182220 DD/ 10 TD/TT: - Medical Decision Making Patient is a 73-year-old female who presented with nausea vomiting diarrhea. Nausea is improved since she's been emergency department. Patient was hydrated. Patient's CT is consistent with a mild colitis. Patient's white count is within normal limits. She is not febrile and her pain is tolerable. Do believe the patient is a good candidate for outpatient therapy. Patient started on Cipro and Flagyl she'll be discharged home. Should also complaining of some anxiety type symptoms. Patient be given a prescription for Xanax. Critical care attestation.: If time is entered above; I have spent that time in minutes in the direct care of this critically ill patient, excluding procedure time. ED Disposition Clinical Impression: Colitis, Mild dehydration, Hypokalemia, Anxiety reaction Disposition: DC-01 TO HOME OR SELFCARE Is pt being admited?: No Does the pt Need Aspirin: No Condition: Stable Instructions: Infectious Colitis (ED), Dehydration (ED), Hypokalemia (ED) Referrals: PRIMARY CAREMD [Primary Care Provider] - 3-5 Days Time of Disposition: 23:51
[2018-10-28 18:34] LABS: Basophils # (Auto) 0.1 K/mm3 (0.0-0.1); Basophils % (Auto) 0.5 % (0.0-1.8); Eosinophils % (Auto) 0.1 % (0.0-4.3); Hematocrit 41.7 % (30.3-42.9); Hemoglobin 14.9 gm/dl (10.1-14.3); Lymphocytes # (Auto) 1.7 K/mm3 (1.2-5.4); Lymphocytes % (Auto) 16.4 % (13.4-35.0); Mean Corpuscular HGB Conc 36 % (30-34); Mean Corpuscular Volume 99 fl (79-97); Monocytes # (Auto) 0.4 K/mm3 (0.0-0.8); Monocytes % (Auto) 3.5 % (0.0-7.3); Platelet Count 215 K/mm3 (140-440); Red Blood Count 4.22 M/mm3 (3.65-5.03); Red Cell Distribution Width 15.1 % (13.2-15.2)
[2018-10-28 19:16] LABS: Albumin 4.3 g/dL (3.9-5); Calcium 9.8 mg/dL (8.4-10.2)
[2018-10-28] MEDS ORDERED: K-DUR PO ONE (20:22)
[2018-10-28] MEDS ORDERED: ZOFRAN ONE (20:48)
[2018-10-28] MEDS ORDERED: ZOFRAN ODT PO ONE (21:52)
[2018-10-28] MEDS ORDERED: LIDOCAINE VISCOUS 2% PO ONE (21:52)
[2018-10-28] MEDS ORDERED: ALUM-MAG HYDROX-SIMETH 200-200-20MG/5ML PO ONE (21:52)
--- NOTE | 2018-10-28 22:26 | Cat Scan Report ---
CT ABDOMEN AND PELVIS WITH CONTRAST INDICATION: Nausea, vomiting, diarrhea, abdominal pain CONTRAST: 100 cc Omnipaque 300 IV COMPARISON: None available. All CT scans at this location are performed using CT dose reduction for ALARA by means of automated e xposure control. FINDINGS: Mild bibasilar atelectatic changes are seen but no areas of consolidation are noted. Small pericardial effusion is seen. Moderate hiatal hernia is noted. No pneumoperitoneum is seen. Mild fatt y infiltration of the liver is seen without obvious focal lesion and without significant enlargement. Spleen appears within normal limits. Gallbladder has been removed. No biliary dilatation is seen. Pa ncreas appears within normal limits. No urinary obstructive changes are seen. No free fluid is seen. Urinary bladder is distended. No masses are seen. The colon through most of its length from the cecum to the distal sigmoid area shows evidence of mild wall thickening though these segments are not well distended and evaluation is made more difficult. No evidence of perforation is seen. No obstructive changes are seen. Small bowel loops do not show wa ll thickening but many are fluid-filled though not dilated. Appendix is not identified. Visualized portions of the upper superficial femoral vein, profunda femoris vein, common femoral vein , and all of the left iliac veins show some contrast filling but also showed defined central filling defect. Contralateral analogous areas do not show obvious contrast filling for evaluation and the inf erior vena cava is not well opacified in its lower portion. IMPRESSION: 1. Findings are concerning for mild colitis affecting most of the colon without obvious complication. 2. Fluid-filled small bowel loops without distention could relate to enteritis but also to adynamic i leus. 3. Well-defined contiguous filling defect is seen through much of the left venous system in the pelvi s and upper thigh as described. Phase of contrast on this study is early and this may just represent flow artifact, but I would suggest Doppler examination of the left lower extremity. Signer Name: Jesus Ochoa MD Signed: 10/28/2018 10:21 PM Workstation Name: [id number]
[2018-10-29] MEDS ORDERED: ALUM-MAG HYDROX-SIMETH 200-200-20MG/5ML PO ONE (02:29)
[2018-10-29] MEDS ORDERED: LIDOCAINE VISCOUS 2% PO ONE (02:29)
[2018-10-29] MEDS ORDERED: REGLAN IV ONE (02:30)
[2018-10-29] MEDS ORDERED: REGLAN ONE (02:39)
[2018-10-29 07:27] VITALS: BP 127/82
== END 2018-10-29 07:20 | disposition home or self-care (01) ==
LOC: ED 16:36
DX: K52.9 Noninfective gastroenteritis and colitis, unspecified (principal); E86.0 Dehydration; F41.9 Anxiety disorder, unspecified; E87.6 Hypokalemia; E03.9 Hypothyroidism, unspecified; I10 Essential (primary) hypertension; Z88.5 Allergy status to narcotic agent; Z88.0 Allergy status to penicillin; Z79.899 Other long term (current) drug therapy; Z90.49 Acquired absence of other specified parts of digestive tract
CPT/HCPCS: 36415; 74177; 80053; 83690; 85025; 96361; 96372; 96374; 96375; 99285; J0500; J2405; J2765; J7030; Q9967; Q0162

== ENCOUNTER 2018-12-05 08:39 | Outpatient (CLI) | payer MEDICARE ==
[2018-12-05 10:04] LABS: Hematocrit 37.3 % (30.3-42.9); Hemoglobin 13.1 gm/dl (10.1-14.3); Mean Corpuscular HGB Conc 35 % (30-34); Mean Corpuscular Volume 102 fl (79-97); Red Blood Count 3.66 M/mm3 (3.65-5.03); Red Cell Distribution Width 15.5 % (13.2-15.2)
[2018-12-05 10:22] LABS: Alanine Aminotransferase 42 units/L (7-56); Albumin 4.4 g/dL (3.9-5); BUN/Creatinine Ratio 12; Blood Urea Nitrogen 12 mg/dL (7-17); Calcium 10.2 mg/dL (8.4-10.2); Hemolysis Index 8; LDL Cholesterol,Direct 286 mg/dL (50-130)
[2018-12-05 10:42] LABS: Chol/HDL Ratio 5.25 %; HDL Cholesterol 66 mg/dL (40-59)
[2018-12-05 11:05] LABS: Platelet Count 183 K/mm3 (140-440)
[2018-12-09 20:36] LABS: Vitamin D, 25-OH, D2 <4 ng/mL
== END 2018-12-05 08:40 | disposition home or self-care (01) ==
LOC: LAB 08:39
PROVIDERS: ATTEND Internal Medicine
DX: Z13.21 Encounter for screening for nutritional disorder (principal); Z13.1 Encounter for screening for diabetes mellitus; E03.9 Hypothyroidism, unspecified; E78.2 Mixed hyperlipidemia; E55.9 Vitamin D deficiency, unspecified; I10 Essential (primary) hypertension; E78.00 Pure hypercholesterolemia, unspecified; Z90.49 Acquired absence of other specified parts of digestive tract; R79.89 Other specified abnormal findings of blood chemistry
CPT/HCPCS: 36415; 80053; 80061; 82306; 82607; 83036; 84443; 85027

== ENCOUNTER 2019-02-19 08:38 | Outpatient (CLI) | payer MEDICARE | END 2019-02-19 08:39 | disposition home or self-care (01) | LOC: LAB 08:38 | PROVIDERS: ATTEND Internal Medicine | DX: E87.6 Hypokalemia (principal); E03.9 Hypothyroidism, unspecified; I10 Essential (primary) hypertension; Z90.49 Acquired absence of other specified parts of digestive tract; Z90.710 Acquired absence of both cervix and uterus | CPT/HCPCS: 36415; 84132; 84443 ==

== ENCOUNTER 2020-09-16 19:28 | Emergency (ER) | payer MEDICARE ==
[2020-09-16] MEDS ORDERED: ACETAMINOPHEN 325 MG TAB PO ONE (21:21)
--- NOTE | 2020-09-16 21:54 | Event Note ---
ED Screening Note ED Screening Note: Patient is a 75-year-old female presents emergency room with complaints of left leg pain that began a couple days ago She states that she believes she may have slipped from her bed onto her pedestal She states since then she has had left hip, left knee, left calf pain She denies any leg swelling or numbness or weakness She states that the pain has been increasing Past medical history of hypertension and hypothyroidism Allergy to codeine, penicillin, ibuprofen This initial assessment/diagnostic orders/clinical plan/treatment(s) is/are subject to change based on patients health status, clinical progression and re- assessment by fellow clinical providers in the ED. Further treatment and workup at subsequent clinical providers discretion. Patient/guardian urged not to elope from the ED as their condition may be serious if not clinically assessed and managed. Initial orders include: X-rays, ultrasound, labs Unable to palpate a strong pulse, skin is warm and dry, no pallor and skin is not cool
[2020-09-16 22:22] LABS: Basophils # (Auto) 0.1 K/mm3 (0.0-0.1); Basophils % (Auto) 0.7 % (0.0-1.8); Eosinophils # (Auto) 0.2 K/mm3 (0.0-0.4); Hematocrit 39.5 % (30.3-42.9); Hemoglobin 13.6 gm/dl (10.1-14.3); Lymphocytes # (Auto) 3.5 K/mm3 (1.2-5.4); Mean Corpuscular HGB Conc 35 % (30-34); Mean Corpuscular Volume 97 fl (79-97); Monocytes # (Auto) 0.6 K/mm3 (0.0-0.8); Monocytes % (Auto) 7.6 % (0.0-7.3); Platelet Count 244 K/mm3 (140-440); Red Blood Count 4.08 M/mm3 (3.65-5.03); Red Cell Distribution Width 14.2 % (13.2-15.2)
[2020-09-16 22:41] LABS: INR 1.05 (0.87-1.13)
[2020-09-16 22:42] LABS: Partial Thromboplastin Time 23.4 Sec. (24.2-36.6)
[2020-09-16 22:47] LABS: Alanine Aminotransferase 10 units/L (7-56); BUN/Creatinine Ratio 22; Blood Urea Nitrogen 22 mg/dL (7-17); Calcium 10.8 mg/dL (8.4-10.2); Hemolysis Index 1
--- NOTE | 2020-09-16 22:52 | Vascular Lab Report ---
DUPLEX DOPPLER LOWER EXTREMITY VEINS, LEFT INDICATION / CLINICAL INFORMATION: left leg pain. TECHNIQUE: Duplex doppler imaging was performed through the veins of the left lower extremity using venous compr ession and other maneuvers. COMPARISON: None available. FINDINGS: LEFT COMMON FEMORAL VEIN: Negative. LEFT FEMORAL VEIN: Negative. LEFT POPLITEAL VEIN: Negative. LEFT CALF VEINS: Negative. ADDITIONAL FINDINGS: None. IMPRESSION: 1. No sonographic evidence for DVT in the left lower extremity. Signer Name: Doron Flannery MD Signed: 09/16/2020 10:47 PM Workstation Name: [id number]
[2020-09-16] MEDS ORDERED: CYCLOBENZAPRINE 10 MG TAB PO ONE (22:53)
[2020-09-16] MEDS ORDERED: KETOROLAC 30 MG/1 ML INJ IM ONE (22:53)
--- NOTE | 2020-09-16 22:57 | Emergency Department Report ---
HPI - General Chief Complaint: Extremity Injury, Lower Time Seen by Provider: 09/16/20 21:50 - HPI HPI: This is a 75-year-old -[place] female presents to the emergency department with complaint of pain down the entirety of her left leg including t he hip and buttock. 3 days ago, early in the morning, the patient fell out of bed onto her knees onto a stool. She denies hitting her head or falling to the ground. She was able to get herself back up into bed and was not having significant pain at that time, but when she woke up in the morning she began having the severe leg pain. She denies any swelling of the leg, skin color change, rash, lesions. She has not taken anything for her symptoms prior to presentation. Patient has a past medical history of hypertension, GERD and hypothyroidism. No recent travel or sick contacts at home. Pain is currently 9 out of 10 in intensity and worsens with any type of movement or bearing of weight. No known alleviating factors. ED Past Medical Hx - Past Medical History Previous Medical History?: Yes Hx Hypertension: Yes Hx Psychiatric Treatment: Yes Hx HIV: No Additional medical history: hypothyroidism - Surgical History Past Surgical History?: Yes Hx Cholecystectomy: Yes Additional Surgical History: R ankle, R tibia - Social History Smoking Status: Never Smoker Substance Use Type: None - Medications Home Medications: Home Medications Medication Instructions Recorded Confirmed Last Taken Type Albuterol Mdi (or & Nicu Only) 1 puff IH TID PRN #1 inha 04/07/18 01/25/20 Unknown Rx [ProAir HFA Inhaler] AtorvaSTATin 10 mg PO QHS #30 tablet 04/07/18 01/25/20 Unknown Rx Folic Acid [Folvite] 1 mg PO QDAY #30 tablet 04/07/18 01/25/20 Unknown Rx Levothyroxine [Synthroid] 150 mcg PO DAILY@0600 #30 tablet 04/07/18 01/20/20 Unknown Rx Multivitamin Tab [Multiple Vitamin 1 each PO QDAY 30 Days tablet 04/07/18 01/25/20 Unknown Rx TAB (Theragran)] Sertraline [Zoloft] 25 mg PO QDAY 30 Days tablet 04/07/18 01/25/20 Unknown Rx Thiamine [Vitamin B-1] 100 mg PO QDAY #30 tablet 04/07/18 01/25/20 Unknown Rx ALPRAZolam [Xanax TAB] 0.25 mg PO BID PRN #10 tab 10/28/18 01/25/20 Unknown Rx Dicyclomine [Bentyl] 20 mg PO QID #10 tablet 10/28/18 01/25/20 Unknown Rx Metoclopramide HCl [Reglan TAB] 5 mg PO TIDAC #10 tablet 10/28/18 01/20/20 Unknown Rx Potassium Chloride [K-Dur] 20 meq PO BID #6 tab 10/28/18 01/25/20 Unknown Rx busPIRone [Buspar] 10 mg PO BID 01/20/20 01/20/20 Unknown History Pantoprazole [Protonix TAB] 40 mg PO BID #60 tablet 01/25/20 Unknown Rx Sucralfate [Carafate] 1 gm PO Q6HR #90 tablet 01/25/20 Unknown Rx Cyclobenzaprine [Flexeril] 10 mg PO TID PRN #12 tablet 09/17/20 Unknown Rx Ibuprofen [Motrin 600 MG tab] 600 mg PO Q8H PRN #20 tablet 09/17/20 Unknown Rx traMADoL [Ultram 50 MG tab] 50 mg PO Q6HR PRN #12 tablet 09/17/20 Unknown Rx ED Review of Systems ROS: Stated complaint: HIP PAIN Other details as noted in HPI Comment: All other systems reviewed and negative Constitutional: denies: chills, fever Eyes: denies: eye pain, vision change ENT: denies: ear pain, throat pain Respiratory: denies: cough, shortness of breath Cardiovascular: denies: chest pain, palpitations Gastrointestinal: denies: abdominal pain, vomiting Genitourinary: denies: dysuria, discharge Musculoskeletal: arthralgia, myalgia. denies: back pain Skin: denies: rash, lesions Neurological: denies: headache, numbness, paresthesias Physical Exam - Physical Exam Vital Signs: Vital Signs 09/16/20 09/16/20 21:13 21:27 Temperature 98.8 F Pulse Rate 129 H Respiratory 18 18 Rate Blood Pressure 129/90 O2 Sat by Pulse 95 Oximetry Physical Exam: GENERAL: The patient is well-developed well-nourished. HENT: Normocephalic. Atraumatic. Patient has moist mucous membranes. EYES: Extraocular motions are intact. NECK: Supple. Trachea is midline. CHEST/LUNGS: Clear to auscultation. There is no respiratory distress noted. HEART/CARDIOVASCULAR: Regular. There is no tachycardia. There is no murmur. ABDOMEN: Abdomen is soft, nontender. Patient has normal bowel sounds. SKIN: Skin is warm and dry. NEURO: The patient is awake, alert, and oriented. The patient is cooperative. The patient has no focal neurologic deficits. Normal speech. MUSCULOSKELETAL: There is tenderness to palpation along the left lower extremity from the hip down to the foot. No obvious deformities. +2/4 dorsalis pedis pulse to the affected left lower extremity. Capillary refill less than 2 seconds. There is no limitation range of motion. ED Course Vital Signs 09/16/20 09/16/20 21:13 21:27 Temperature 98.8 F Pulse Rate 129 H Respiratory 18 18 Rate Blood Pressure 129/90 O2 Sat by Pulse 95 Oximetry ED Medical Decision Making - Lab Data Result diagrams: 09/16/20 22:01 09/16/20 22:01 Lab Results 09/16/20 09/16/20 09/16/20 Range/Units 22:01 22:01 22:01 WBC 7.9 (4.5-11.0) K/mm3 RBC 4.08 (3.65-5.03) M/mm3 Hgb 13.6 (10.1-14.3) gm/dl Hct 39.5 (30.3-42.9) % MCV 97 (79-97) fl MCH 33 H (28-32) pg MCHC 35 H (30-34) % RDW 14.2 (13.2-15.2) % Plt Count 244 (140-440) K/mm3 Lymph % (Auto) 44.0 H (13.4-35.0) % Harnett % (Auto) 7.6 H (0.0-7.3) % Eos % (Auto) 2.0 (0.0-4.3) % Baso % (Auto) 0.7 (0.0-1.8) % Lymph # (Auto) 3.5 (1.2-5.4) K/mm3 Harnett # (Auto) 0.6 (0.0-0.8) K/mm3 Eos # (Auto) 0.2 (0.0-0.4) K/mm3 Baso # (Auto) 0.1 (0.0-0.1) K/mm3 Seg Neutrophils % 45.7 (40.0-70.0) % Seg Neutrophils # 3.6 (1.8-7.7) K/mm3 PT 14.3 (12.2-14.9) Sec. INR 1.05 (0.87-1.13) APTT 23.4 L (24.2-36.6) Sec. Sodium 138 (137-145) mmol/L Potassium 3.7 (3.6-5.0) mmol/L Chloride 99.2 (98-107) mmol/L Carbon Dioxide 20 L (22-30) mmol/L Anion Gap 23 mmol/L BUN 22 H (7-17) mg/dL Creatinine 1.0 (0.6-1.2) mg/dL Estimated GFR > 60 ml/min BUN/Creatinine Ratio 22 % Glucose 64 L (65-100) mg/dL Calcium 10.8 H (8.4-10.2) mg/dL Total Bilirubin 0.50 (0.1-1.2) mg/dL AST 20 (5-40) units/L ALT 10 (7-56) units/L Alkaline Phosphatase 118 (35-129) units/L Total Protein 8.1 (6.3-8.2) g/dL Albumin 4.0 (3.9-5) g/dL Albumin/Globulin Ratio 1.0 % - Radiology Data Radiology results: report reviewed, image reviewed interpreted by me: X-ray of the left hip and left knee do not show any fractures, dislocations, or any acute process. DUPLEX DOPPLER LOWER EXTREMITY VEINS, LEFT INDICATION / CLINICAL INFORMATION: left leg pain. TECHNIQUE: Duplex doppler imaging was performed through the veins of the left lower extremity using venous compression and other maneuvers. COMPARISON: None available. FINDINGS: LEFT COMMON FEMORAL VEIN: Negative. LEFT FEMORAL VEIN: Negative. LEFT POPLITEAL VEIN: Negative. LEFT CALF VEINS: Negative. ADDITIONAL FINDINGS: None. IMPRESSION: 1. No sonographic evidence for DVT in the left lower extremity. - Medical Decision Making This patient presents to the emergency department with pain along the left lower extremity from the hip down to the foot. This started shortly after the patient fell onto her bilateral knees about 3 days ago. There are no signs of any obvious trauma or deformity. She is neurovascularly intact with a +2/4 dorsalis pedis pulse and capillary refill less than 2 seconds to the affected left lower extremity. She had a left lower extremity venous Doppler ultrasound that was negative for DVT. X-rays were done of the left hip and left knee that did not s how any fractures, dislocations, or any acute processes. Labs are mostly unremarkable including CBC, metabolic panel, and coags. The patient's blood sugar was slightly low but she was given some juice. Patient was given a dose of Toradol and Flexeril, and later was given a dose of tramadol. There was some mild improvement in her discomfort. However, given the fact that the patient is neurovascularly intact, does not have any fractures or dislocations, is negative for DVT, does not appear to have any arterial insufficiency, the patient does not appear to have any life or limb threatening emergency and does not require admission at this time. The patient will be given a prescription for pain medication and outpatient referrals for an orthopedist. She has been given some crutches to help her with the amount of weightbearing she has to do to the left lower extremity. She has been instructed to return to the closest emergency department with any worsening of her symptoms or with any acute distress. Critical Care Time: No Critical care attestation.: If time is entered above; I have spent that time in minutes in the direct care of this critically ill patient, excluding procedure time. ED Disposition Clinical Impression: Left leg pain, Left hip pain Disposition: TO HOME OR SELFCARE Is pt being admited?: No Condition: Stable Instructions: Musculoskeletal Pain, Joint Pain, Pain Without a Known Cause Additional Instructions: Please follow-up with your primary care physician in the next few days. I am giving you a referral for 2 different local orthopedic groups, Dr. Miller and [facility], to follow-up regarding your left leg pains. You have been prescribed a medication that is sedating and therefore should not be taken prior to driving, working, and responsible for children and in no way should be mixed with alcohol of any quantity. Return to the emergency department with any worsening of your symptoms, new or concerning symptoms not addressed during this current emergency department visit, or with any acute distress. Prescriptions: Cyclobenzaprine [Flexeril] 10 mg PO TID PRN #12 tablet PRN Reason: Muscle Spasm Ibuprofen [Motrin 600 MG tab] 600 mg PO Q8H PRN #20 tablet PRN Reason: Pain traMADoL [Ultram 50 MG tab] 50 mg PO Q6HR PRN #12 tablet PRN Reason: Pain Referrals: PRIMARY CAREMD [Primary Care Provider] - 2-3 Days CHRIS MILLER MD [Staff Physician] - 2-3 Days [facility] [Provider Group] - 2-3 Days Time of Disposition: 00:39
--- NOTE | 2020-09-16 23:02 | XRay Report ---
HIP INDICATION FOR STUDY: left hip pain TECHNIQUE: AP and lateral views of the left hip was obtained-AP pelvis. FINDINGS: The hip is well mineralized. Articular space isno. Evidence of a dislocation. There is no evidence o f fracture. There is no radiographic evidence of hip effusion. IMPRESSION: No acute abnormality identified. Signer Name: Doron Flannery MD Signed: 09/16/2020 10:57 PM Workstation Name: [id number]
--- NOTE | 2020-09-16 23:02 | XRay Report ---
HISTORY:left knee pain COMPARISON: None. TECHNIQUE: AP lateral and obliques views were obtained FINDINGS: Bones: No fracture or dislocation. Joint spaces: Maintained. Soft tissues: No significant abnormality. Additional findings: None. IMPRESSION: 1. No significant abnormality. Signer Name: Doron Flannery MD Signed: 09/16/2020 10:58 PM Workstation Name: [id number]
[2020-09-17] MEDS ORDERED: traMADol 50 MG TAB PO ONE (01:11)
[2020-09-17 06:15] VITALS: BP 141/74
== END 2020-09-17 06:13 | disposition home or self-care (01) ==
LOC: ED 19:28
DX: M79.605 Pain in left leg (principal); M25.552 Pain in left hip; I10 Essential (primary) hypertension; Z90.49 Acquired absence of other specified parts of digestive tract; Z98.890 Other specified postprocedural states; Z79.1 Long term (current) use of non-steroidal anti-inflammatories (NSAID); Z79.899 Other long term (current) drug therapy; Z88.0 Allergy status to penicillin; Z88.8 Allergy status to other drugs, medicaments and biological substances
CPT/HCPCS: 36415; 73502; 73562; 80053; 85025; 85610; 85730; 93971; 96372; 99284; J1885

== ENCOUNTER 2021-08-19 01:58 | Inpatient (IN) | payer MEDICARE ==
[2021-08-19] MEDS ORDERED: ETOMIDATE 20 MG/10 ML INJ IV ONE (02:00)
[2021-08-19] MEDS ORDERED: ROCURONIUM 50 MG/5 ML INJ IV ONE ×2 (02:03→02:05)
[2021-08-19] MEDS ORDERED: dexAMETHasone 20 MG/5 ML VIAL IV ONE (02:04)
[2021-08-19] MEDS ORDERED: FAMOTIDINE 20 MG/2 ML INJ IV ONE ×2 (02:04)
[2021-08-19] MEDS ORDERED: diphenhydrAMINE 50 MG/ML VIAL IV ONE (02:04)
[2021-08-19] MEDS ORDERED: diphenhydrAMINE 50 MG/ML VIAL ONE (02:05)
[2021-08-19] MEDS ORDERED: SUCCINYLCHOLINE CHLORIDE 200 MG/10 ML INJ MDV ONE (02:09)
--- NOTE | 2021-08-19 02:26 | Emergency Department Report ---
HPI - General Chief Complaint: Allergic Reaction PUI?: No Time Seen by Provider: 08/19/21 02:06 - HPI HPI: 76-year-old female brought in by EMS with concerns of tongue angioedema which according to the patient the medication mostly because that is amlodipine. According to the EMS at the time when they arrived to the house and to when they arrived to emergency room; the angioedema of the tongue has not changed but it has not gotten worse or gotten any better. Patient's airway is intact to maintain her airway. Mallampati score 4. ED Past Medical Hx - Past Medical History Hx Hypertension: Yes Hx Psychiatric Treatment: Yes Hx HIV: No Additional medical history: hypothyroidism - Surgical History Hx Cholecystectomy: Yes Additional Surgical History: R ankle, R tibia - Social History Smoking Status: Never Smoker Substance Use Type: None - Medications Home Medications: Home Medications Medication Instructions Recorded Confirmed Last Taken Type Albuterol Mdi (or & Nicu Only) 1 puff IH TID PRN #1 inha 04/07/18 01/25/20 Unknown Rx [ProAir HFA Inhaler] AtorvaSTATin 10 mg PO QHS #30 tablet 04/07/18 01/25/20 Unknown Rx Folic Acid [Folvite] 1 mg PO QDAY #30 tablet 04/07/18 01/25/20 Unknown Rx Levothyroxine [Synthroid] 150 mcg PO DAILY@0600 #30 tablet 04/07/18 01/20/20 Unknown Rx Multivitamin Tab [Multiple Vitamin 1 each PO QDAY 30 Days tablet 04/07/18 01/25/20 Unknown Rx TAB (Theragran)] Sertraline [Zoloft] 25 mg PO QDAY 30 Days tablet 04/07/18 01/25/20 Unknown Rx Thiamine [Vitamin B-1] 100 mg PO QDAY #30 tablet 04/07/18 01/25/20 Unknown Rx ALPRAZolam [Xanax TAB] 0.25 mg PO BID PRN #10 tab 10/28/18 01/25/20 Unknown Rx Dicyclomine [Bentyl] 20 mg PO QID #10 tablet 10/28/18 01/25/20 Unknown Rx Metoclopramide HCl [Reglan TAB] 5 mg PO TIDAC #10 tablet 10/28/18 01/20/20 Unknown Rx Potassium Chloride [K-Dur] 20 meq PO BID #6 tab 10/28/18 01/25/20 Unknown Rx busPIRone [Buspar] 10 mg PO BID 01/20/20 01/20/20 Unknown History Pantoprazole [Protonix TAB] 40 mg PO BID #60 tablet 01/25/20 Unknown Rx Sucralfate [Carafate] 1 gm PO Q6HR #90 tablet 01/25/20 Unknown Rx Cyclobenzaprine [Flexeril] 10 mg PO TID PRN #12 tablet 09/17/20 Unknown Rx Ibuprofen [Motrin 600 MG tab] 600 mg PO Q8H PRN #20 tablet 09/17/20 Unknown Rx traMADoL [Ultram 50 MG tab] 50 mg PO Q6HR PRN #12 tablet 09/17/20 Unknown Rx ED Review of Systems ROS: Stated complaint: ALLERGIC REACTION Other details as noted in HPI ED Course - Reevaluation(s) Reevaluation #1: 08/19/21 02:06 On patient arrival, patient noted to have tongue angioedema and 50mg IV julia adryl, .5mg epi, 125mg IV solumedrol given by EMS. Per EMS, size has not changed (not worse/better); I have informed charge nurse to page anesthesiologist on all immediately for additional support. Informed to give another 50mg IV benadryl, 20mg IV pepcid, and 10mg decadron. 08/19/21 02:15 Spoke to senior process control tech surgeon who is aware of possible cricothrotomy if we (me and anesthesiologist) are not able to oral/nasal intubate or perform retrograded intubation; patient denies on any anticoagulation medication. Per surgeon, would prefer go to the OR if plan is to perform cricothrotomy. 08/19/21 03:35 AWAKE INTUBATION PERFORMED BY HRIS COORDINATOR WITH MY ASSISTANCE; APPRECIATE HER ASSISTANCE. PROPOFOL IS THE SEDATION AGENT. CXR CONFIRMED POSITION OF ETT. SPOKE TO HOSPITALIST WHO KINDLY ACCEPTED THE PATIENT. 08/19/21 03:38 - Intubation Time Out Performed: Yes Sedative: none (PRECEDEX) Laryngoscope: none ET Tube Size: 7.5 Tube Secured Location: lips Tube Placement Confirmation: visualized tube passing t, equal breath sounds bilat (CXR CONFIRMED) Patient Tolerated Procedure: well Intubation Complications: none, difficult intubation Additional Comments: AWAKE INTUBATION PERFORMED BY HRIS COORDINATOR AND ASSIST BY ME. ED Medical Decision Making - Lab Data Result diagrams: 08/19/21 02:24 08/19/21 02:24 - Radiology Data interpreted by me: ETT TUBE ABOVE CRINA BIFURCATION; PENDING OFFICIAL READ BY RADIOLOGIST. Critical Care Time: Yes Critical care time in (mins) excluding proc time.: 38 Critical care attestation.: If time is entered above; I have spent that time in minutes in the direct care of this critically ill patient, excluding procedure time. ED Disposition Clinical Impression: Angioedema of tongue Disposition: 02 [facility]ORT TERM [facility] Is pt being admited?: Yes Does the pt Need Aspirin: No Condition: Stable Time of Disposition: 03:15
[2021-08-19] MEDS ORDERED: LIDOCAINE 2% UROJECT 10 ML JELLY UR NR (02:41)
[2021-08-19] MEDS ORDERED: GLYCOPYRROLATE 0.4 MG/2 ML INJ IV NR (02:41)
[2021-08-19 02:48] LABS: Hemoglobin 14.3 gm/dl (10.1-14.3); Mean Corpuscular HGB Conc 34 % (30-34); Mean Corpuscular Volume 98 fl (79-97); Red Blood Count 4.29 M/mm3 (3.65-5.03); Red Cell Distribution Width 15.7 % (13.2-15.2)
[2021-08-19 03:04] LABS: INR 0.87 (0.87-1.13)
[2021-08-19 03:08] LABS: Alanine Aminotransferase 16 units/L (7-56); Albumin 4.5 g/dL (3.9-5); BUN/Creatinine Ratio 10; Blood Urea Nitrogen 9 mg/dL (7-17); Calcium 9.6 mg/dL (8.4-10.2); Hemolysis Index 62
[2021-08-19 03:14] LABS: Platelet Count 167 K/mm3 (140-440)
--- NOTE | 2021-08-19 03:40 | XRay Report ---
CHEST 1 VIEW INDICATION / CLINICAL INFORMATION: intubation. COMPARISON: Chest x-ray 03/31/2018 FINDINGS: SUPPORT DEVICES: The endotracheal tube terminates approximately at the bereket to 1 cm above the sid a. HEART / MEDIASTINUM: Heart size is borderline to minimally enlarged. LUNGS / PLEURA: Right lung clear. Left lung not included completely on this study however the opaciti es appear to be present within the left lower chest. BONES: No significant osseous abnormality. ADDITIONAL FINDINGS: No significant additional findings. IMPRESSION: 1. Endotracheal tube terminates at or just above the bereket. Retraction by 1 cm for optimal positioni ng recommended. 2. Opacities left lung base are considered compatible with left lower lobe atelectasis. Lungs otherwi se clear. Signer Name: Wilberto Forrester II, MD Signed: 08/19/2021 3:36 AM Workstation Name: [id number]
--- NOTE | 2021-08-19 03:48 | Event Note ---
Date: 08/19/21 Called in to ER for emergent intubation. Arrived to bedside at 0235. Patient noted to be in distress with severe swelling of tongue. Receiving O2 via face mask with O2 saturation 100%. All other vitals stable. Dr. Michelle, ER nurse, and pipe line maintenance supervisor at bedside. Patient was given lidocaine gel and hurricane spray orally. 0.2 mg glycopyrrolate, 30 mg of ketamine, and 80 mcg of precedex given IV. Atraumatic intubation using glidescope S4 blade and 7.5 OETT. Placement confirmed with CO2 detector, bilateral breath sounds, and chest x-ray. Vitals remained stable throughout procedure. Care transferred back to ER team at 0325
[2021-08-19] MEDS: MIDAZOLAM 5 MG/5 ML INJ MDV IV NR ×2 (03:50→04:21)
[2021-08-19] MEDS ORDERED: KETAMINE/STERILE WATER 50 MG/ML SYRINGE ONE (03:52)
[2021-08-19] MEDS: MIDAZOLAM/NS Drip 100mg/100ml 100 MG/100 ML BAG IV SCH ×2 (03:54→22:03)
[2021-08-19] MEDS ORDERED: BENZOCAINE 20% TOP SPRAY 0.5 ML UNIT DOSE MM NR (04:00)
[2021-08-19 04:04] LABS: Basophils % (Manual) 0 % (0.0-1.8); Total Cells Counted 100
[2021-08-19 04:05] LABS: Anisocytosis RARE; Platelet Estimate Consistent w Auto
[2021-08-19 04:06] LABS: Ovalocytes Rare
[2021-08-19] MEDS ORDERED: SODIUM CHLORIDE 0.9% 500 ML 500 ML IV ONE (04:27)
[2021-08-19] MEDS ORDERED: MORPHINE 2 MG/1 ML INJ IV PRN (04:50)
[2021-08-19] MEDS ORDERED: HYDROmorphone 1 MG/1 ML INJ IV PRN (04:50)
[2021-08-19] MEDS ORDERED: ACETAMINOPHEN 325 MG TAB PO PRN (04:50)
[2021-08-19] MEDS ORDERED: ONDANSETRON 4 MG/2 ML INJ IV PRN (04:50)
[2021-08-19] MEDS ORDERED: ALBUTEROL 2.5 MG/3 ML NEBU IH PRN (04:50)
[2021-08-19] MEDS ORDERED: ALPRAZolam 0.25 MG TAB PO PRN (04:52)
[2021-08-19] MEDS ORDERED: D5W/0.45% NACL 1,000 ML IV SCH (05:00)
--- NOTE | 2021-08-19 05:00 | History and Physical Report ---
History of Present Illness Date of examination: 08/19/21 Date of admission: 08/19/21 Chief complaint: Angioedema History of present illness: 76-year-old female with history of hypertension, psych history and hypothyroidism was brought to the hospital because of tongue angioedema which according to the patient the medication mostly because that is amlodipine. Acco rding to the EMS at the time when they arrived to the house and to when they arrived to emergency room; the angioedema of the tongue has not changed but it has not gotten worse or gotten any better. Patient's airway is intact to maintain her airway. Mallampati score 4. On patient arrival, patient noted to have tongue angioedema and 50mg IV benadryl, .5mg epi, 125mg IV solumedrol given by EMS.Subsequently patient was getting worse . Subsequently patient was intubated in the ER.'s were going to admit the patient to the critical care unit. We put the patient on Solu-Medrol Pepcid and reconsult critical care evaluation Past History Past Medical History: hypertension, hypothyroidism, other (History of psychiatric treatment) Past Surgical History: cholecystectomy (Right tibia right ankle surgery), Other Social history: no significant social history Family history: hypertension Medications and Allergies Allergies Allergy/AdvReac Type Severity Reaction Status Date / Time codeine Allergy Swelling Verified 12/02/14 05:36 penicillin Allergy Swelling Verified 12/02/14 05:36 Home Medications Medication Instructions Recorded Confirmed Last Taken Type Albuterol Mdi (or & Nicu Only) 1 puff IH TID PRN #1 inha 04/07/18 01/25/20 Unknown Rx [ProAir HFA Inhaler] AtorvaSTATin 10 mg PO QHS #30 tablet 04/07/18 01/25/20 Unknown Rx Folic Acid [Folvite] 1 mg PO QDAY #30 tablet 04/07/18 01/25/20 Unknown Rx Levothyroxine [Synthroid] 150 mcg PO DAILY@0600 #30 tablet 04/07/18 01/20/20 Unknown Rx Multivitamin Tab [Multiple Vitamin 1 each PO QDAY 30 Days tablet 04/07/18 01/25/20 Unknown Rx TAB (Theragran)] Sertraline [Zoloft] 25 mg PO QDAY 30 Days tablet 04/07/18 01/25/20 Unknown Rx Thiamine [Vitamin B-1] 100 mg PO QDAY #30 tablet 04/07/18 01/25/20 Unknown Rx ALPRAZolam [Xanax TAB] 0.25 mg PO BID PRN #10 tab 10/28/18 01/25/20 Unknown Rx Dicyclomine [Bentyl] 20 mg PO QID #10 tablet 10/28/18 01/25/20 Unknown Rx Metoclopramide HCl [Reglan TAB] 5 mg PO TIDAC #10 tablet 10/28/18 01/20/20 Unknown Rx Potassium Chloride [K-Dur] 20 meq PO BID #6 tab 10/28/18 01/25/20 Unknown Rx busPIRone [Buspar] 10 mg PO BID 01/20/20 01/20/20 Unknown History Pantoprazole [Protonix TAB] 40 mg PO BID #60 tablet 01/25/20 Unknown Rx Sucralfate [Carafate] 1 gm PO Q6HR #90 tablet 01/25/20 Unknown Rx Cyclobenzaprine [Flexeril] 10 mg PO TID PRN #12 tablet 09/17/20 Unknown Rx Ibuprofen [Motrin 600 MG tab] 600 mg PO Q8H PRN #20 tablet 09/17/20 Unknown Rx traMADoL [Ultram 50 MG tab] 50 mg PO Q6HR PRN #12 tablet 09/17/20 Unknown Rx Active Meds: Active Medications Acetaminophen (Acetaminophen 325 Mg Tab) 650 mg PO Q4H PRN PRN Reason: Pain MILD(1-3)/Fever >100.5/SAEED Albuterol (Albuterol 2.5 Mg/3 Ml Nebu) 2.5 mg IH Q3HRT PRN PRN Reason: Shortness Of Breath Albuterol/Ipratropium (Ipratropium/Albuterol Sulfate 3 Ml Ampul.Neb) 1 ampul IH Q6HRT WARD Alprazolam (Alprazolam 0.25 Mg Tab) 0.25 mg PO BID PRN PRN Reason: Anxiety Buspirone HCl (Buspirone 10 Mg Tab) 10 mg PO BID WARD Famotidine (Famotidine 20 Mg/2 Ml Inj) 20 mg IV BID WARD Folic Acid (Folic Acid 1 Mg Tab) 1 mg PO QDAY WARD Heparin Sodium (Porcine) (Heparin 5,000 Unit/1 Ml Vial) 5,000 unit SUB-Q Q12HR WARD Hydromorphone HCl (Hydromorphone 1 Mg/1 Ml Inj) 0.5 mg IV Q3H PRN PRN Reason: Pain , Severe (7-10) Propofol (Diprivan 10 Mg/Ml) 1,000 mg in 100 mls @ 2.722 mls/hr IV TITR WARD; Protocol Last Titration: 08/19/21 03:50 Dose: 0 mcg/kg/min, 0 mls/hr MIDAZOLAM/NS Drip 100mg/100ml (Midazolam/Ns Drip 100mg/100ml) 100 mg in 100 mls @ 1 mls/hr IV TITR WARD; Protocol Last Admin: 08/19/21 03:54 Dose: 1 mg/hr, 1 mls/hr Sodium Chloride (Nacl 0.9% 500 Ml) 500 mls @ 999 mls/hr IV ONCE ONE Stop: 08/19/21 04:57 Last Admin: 08/19/21 04:30 Dose: 999 mls/hr Dextrose/Sodium Chloride (D5/0.45ns) 1,000 mls @ 125 mls/hr IV DIRECT WARD Levothyroxine Sodium (Levothyroxine 75 Mcg Tab) 150 mcg PO DAILY@0600 [facility] Morphine Sulfate (Morphine 2 Mg/1 Ml Inj) 2 mg IV Q4H PRN PRN Reason: Pain, Moderate (4-6) Multivitamins (Multivitamins ,Therapeutic Tab) 1 each PO QDAY [facility] Ondansetron HCl (Ondansetron 4 Mg/2 Ml Inj) 4 mg IV Q8H PRN PRN Reason: Nausea And Vomiting Sertraline HCl (Sertraline 25 Mg Tab) 25 mg PO QDAY [facility] Sodium Chloride (Sodium Chloride 0.9% 10 Ml Flush Syringe) 10 ml IV BID WARD Sodium Chloride (Sodium Chloride 0.9% 10 Ml Flush Syringe) 10 ml IV PRN PRN PRN Reason: LINE FLUSH Thiamine HCl (Thiamine 100 Mg Tab) 100 mg PO QDAY [facility] Review of Systems All systems: negative Constitutional: lethargy, other (Tongue swollen face swollen angioedema) Exam - Constitutional Vitals: Temp Pulse Resp BP Pulse Ox 70 26 H 81/55 100 08/19/21 04:00 08/19/21 03:16 08/19/21 04:00 08/19/21 04:00 General appearance: Present: no acute distress, well-nourished - EENT Eyes: Present: PERRL ENT: hearing intact, other (Angioedema) - Neck Neck: Present: supple, normal ROM - Respiratory Respiratory effort: normal Respiratory: bilateral: CTA - Cardiovascular Heart Sounds: Present: S1 & S2. Absent: rub, click - Extremities Extremities: pulses symmetrical, No edema Peripheral Pulses: within normal limits - Abdominal General gastrointestinal: Present: soft, non-tender, non-distended, normal bowel sounds Female genitourinary: Present: normal - Integumentary Integumentary: Present: clear, warm, dry - Musculoskeletal Musculoskeletal: gait normal, strength equal bilaterally - Psychiatric Psychiatric: appropriate mood/affect, intact judgment & insight - Neurologic Neurologic: CNII-XII intact, moves all extremities Results - Labs CBC & Chem 7: 08/19/21 02:24 08/19/21 02:24 Labs: Laboratory Last Values WBC 13.9 K/mm3 (4.5-11.0) H 08/19/21 02:24 RBC 4.29 M/mm3 (3.65-5.03) 08/19/21 02:24 Hgb 14.3 gm/dl (10.1-14.3) 08/19/21 02:24 Hct 42.0 % (30.3-42.9) 08/19/21 02:24 MCV 98 fl (79-97) H 08/19/21 02:24 MCH 33 pg (28-32) H 08/19/21 02:24 MCHC 34 % (30-34) 08/19/21 02:24 RDW 15.7 % (13.2-15.2) H 08/19/21 02:24 Plt Count 167 K/mm3 (140-440) 08/19/21 02:24 Lymph # (Auto) Grain Elevator Worker 08/19/21 02:24 Add Manual Diff Complete 08/19/21 02:24 Total Counted 100 08/19/21 02:24 Seg Neuts % (Manual) 44.0 % (40.0-70.0) 08/19/21 02:24 Band Neutrophils % 0 % 08/19/21 02:24 Lymphocytes % (Manual) 52.0 % (13.4-35.0) H 08/19/21 02:24 Reactive Lymphs % (Man) 0 % 08/19/21 02:24 Monocytes % (Manual) 2.0 % (0.0-7.3) 08/19/21 02:24 Eosinophils % (Manual) 2.0 % (0.0-4.3) 08/19/21 02:24 Basophils % (Manual) 0 % (0.0-1.8) 08/19/21 02:24 Metamyelocytes % 0 % 08/19/21 02:24 Myelocytes % 0 % 08/19/21 02:24 Promyelocytes % 0 % 08/19/21 02:24 Blast Cells % 0 % 08/19/21 02:24 Nucleated RBC % Not Reportable 08/19/21 02:24 Seg Neutrophils # Man 6.1 K/mm3 (1.8-7.7) 08/19/21 02:24 Band Neutrophils # 0.0 K/mm3 08/19/21 02:24 Lymphocytes # (Manual) 7.2 K/mm3 (1.2-5.4) H 08/19/21 02:24 Abs React Lymphs (Man) 0.0 K/mm3 08/19/21 02:24 Monocytes # (Manual) 0.3 K/mm3 (0.0-0.8) 08/19/21 02:24 Eosinophils # (Manual) 0.3 K/mm3 (0.0-0.4) 08/19/21 02:24 Basophils # (Manual) 0.0 K/mm3 (0.0-0.1) 08/19/21 02:24 Metamyelocytes # 0.0 K/mm3 08/19/21 02:24 Myelocytes # 0.0 K/mm3 08/19/21 02:24 Promyelocytes # 0.0 K/mm3 08/19/21 02:24 Blast Cells # 0.0 K/mm3 08/19/21 02:24 WBC Morphology Not Reportable 08/19/21 02:24 Hypersegmented Neuts Not Reportable 08/19/21 02:24 Hyposegmented Neuts Not Reportable 08/19/21 02:24 Hypogranular Neuts Not Reportable 08/19/21 02:24 Smudge Cells Not Reportable 08/19/21 02:24 Toxic Granulation Not Reportable 08/19/21 02:24 Toxic Vacuolation Not Reportable 08/19/21 02:24 Dohle Bodies Not Reportable 08/19/21 02:24 Pelger-Huet Anomaly Not Reportable 08/19/21 02:24 Erik Rods Not Reportable 08/19/21 02:24 Platelet Estimate Consistent w auto 08/19/21 02:24 Clumped Platelets Not Reportable 08/19/21 02:24 Plt Clumps, EDTA Not Reportable 08/19/21 02:24 Large Platelets Not Reportable 08/19/21 02:24 Giant Platelets Not Reportable 08/19/21 02:24 Platelet Satelliting Not Reportable 08/19/21 02:24 Plt Morphology Comment Not Reportable 08/19/21 02:24 RBC Morphology Not Reportable 08/19/21 02:24 Dimorphic RBCs Not Reportable 08/19/21 02:24 Polychromasia Not Reportable 08/19/21 02:24 Hypochromasia Not Reportable 08/19/21 02:24 Poikilocytosis Not Reportable 08/19/21 02:24 Anisocytosis Rare 08/19/21 02:24 Microcytosis Not Reportable 08/19/21 02:24 Macrocytosis Not Reportable 08/19/21 02:24 Spherocytes Not Reportable 08/19/21 02:24 Pappenheimer Bodies Not Reportable 08/19/21 02:24 Sickle Cells Not Reportable 08/19/21 02:24 Target Cells Not Reportable 08/19/21 02:24 Tear Drop Cells Not Reportable 08/19/21 02:24 Ovalocytes Rare 08/19/21 02:24 Helmet Cells Not Reportable 08/19/21 02:24 [place] Bodies Not Reportable 08/19/21 02:24 [place] Rings Not Reportable 08/19/21 02:24 [place] Cells Not Reportable 08/19/21 02:24 Bite Cells Not Reportable 08/19/21 02:24 Crenated Cell Not Reportable 08/19/21 02:24 Elliptocytes Not Reportable 08/19/21 02:24 Acanthocytes (Spur) Not Reportable 08/19/21 02:24 Rouleaux Not Reportable 08/19/21 02:24 Hemoglobin C Crystals Not Reportable 08/19/21 02:24 Schistocytes Not Reportable 08/19/21 02:24 Malaria parasites Not Reportable 08/19/21 02:24 Marco Bodies Not Reportable 08/19/21 02:24 Hem Pathologist Commnt No 08/19/21 02:24 PT 12.8 Sec. (12.2-14.9) 08/19/21 02:24 INR 0.87 (0.87-1.13) 08/19/21 02:24 APTT 20.0 Sec. (24.2-36.6) L 08/19/21 02:24 Sodium 143 mmol/L (137-145) 08/19/21 02:24 Potassium 3.3 mmol/L (3.6-5.0) L 08/19/21 02:24 Chloride 102.6 mmol/L (98-107) 08/19/21 02:24 Carbon Dioxide 20 mmol/L (22-30) L 08/19/21 02:24 Anion Gap 24 mmol/L 08/19/21 02:24 BUN 9 mg/dL (7-17) 08/19/21 02:24 Creatinine 0.9 mg/dL (0.6-1.2) 08/19/21 02:24 Estimated GFR > 60 ml/min 08/19/21 02:24 BUN/Creatinine Ratio 10 % 08/19/21 02:24 Glucose 143 mg/dL (65-100) H 08/19/21 02:24 Calcium 9.6 mg/dL (8.4-10.2) 08/19/21 02:24 Total Bilirubin 0.70 mg/dL (0.1-1.2) 08/19/21 02:24 AST 30 units/L (5-40) 08/19/21 02:24 ALT 16 units/L (7-56) 08/19/21 02:24 Alkaline Phosphatase 111 units/L (35-129) 08/19/21 02:24 Total Protein 8.3 g/dL (6.3-8.2) H 08/19/21 02:24 Albumin 4.5 g/dL (3.9-5) 08/19/21 02:24 Albumin/Globulin Ratio 1.2 % 08/19/21 02:24 - Imaging and Cardiology Chest x-ray: report reviewed Assessment and Plan VTE prophylaxis?: Chemical Plan of care discussed with patient/family: Yes - Patient Problems (1) Angioedema of tongue Current Visit: Yes Status: Acute Plan to address problem: Admit the patient to the medical ICU. NPO. D5 half-normal saline at the rate of 125 cc/h. Solu-Medrol 80 mg IV every 8 hours. Pepcid 20 mg IV every 12 hours. Reconsult critical care evaluation. We discontinue the amlodipine (2) Adult myxedema Current Visit: No Status: Acute Plan to address problem: Stable we will continue the levothyroxine 150 mcg p.o. daily (3) Hypokalemia Current Visit: No Status: Acute Plan to address problem: Potassium is supplemented. Recheck BMP in the morning (4) Hypothyroidism Current Visit: No Status: Acute Qualifiers: Hypothyroidism type: unspecified Qualified Code(s): E03.9 - Hypothyroidism, unspecified Plan to address problem: Levothyroxine 150 mcg p.o. daily. Continue other home medication (5) Psychosis Current Visit: No Status: Acute Plan to address problem: Stable. We continue the antipsychotic medication. Outpatient follow-up with psychiatry (6) Hypertension Current Visit: Yes Status: Acute Plan to address problem: Hydralazine 10 mg IV every 6 hours as needed. We will continue the other home medication (7) DVT prophylaxis Current Visit: No Status: Acute Plan to address problem: Heparin 5000 units subcu every 12 hours for DVT prophylaxis. Pepcid 20 mg IV every 12 hours for GI prophylaxis. Patient is a full code
[2021-08-19] MEDS ORDERED: hydrALAZINE 20 MG/1 ML INJ IV PRN (05:03)
[2021-08-19 06:33] LABS: ABG Base Excess -1.2 mmol/L (-2.0-3.0); ABG HCO3 21.6 mmol/L (20.0-26.0); ABG Methemoglobin 0.6 % (0.0-1.5); ABG Oxygen Saturation 99.2 % (95.0-99.0); ABG PCO2 30.8 mm Hg; ABG PH 7.465 pH Units (7.350-7.450); ABG PO2 177.7 mm Hg (80.0-90.0)
[2021-08-19] MEDS: LEVOTHYROXINE 75 MCG TAB FEEDTUBE SCH (06:49)
[2021-08-19] MEDS: methylPREDNISolone Sod Succinate 125 MG/2 ML INJ IV SCH ×3 (07:58→21:59)
[2021-08-19] MEDS: IPRATROPIUM/ALBUTEROL SULFATE 3 ML AMPUL.NEB IH SCH ×3 (09:14→21:51)
[2021-08-19] MEDS ORDERED: ePHEDrine SULFATE 50 MG/1 ML INJ ONE (09:25)
[2021-08-19] MEDS ORDERED: CETIRIZINE 10 MG TAB FEEDTUBE SCH (10:00)
--- NOTE | 2021-08-19 10:43 | Consultation ---
History of Present Illness Consult date: 08/19/21 Reason for consult: other (angioedema) History of present illness: 76 y/o female admitted via the ED, Intubated for angioedema of unknown etiology. Past History Past Medical History: hypertension, hypothyroidism, other (History of psychiatric treatment) Past Surgical History: cholecystectomy (Right tibia right ankle surgery), Other Social history: no significant social history Family history: hypertension Medications and Allergies Allergies Allergy/AdvReac Type Severity Reaction Status Date / Time codeine Allergy Swelling Verified 12/02/14 05:36 lisinopril Allergy Angioedema Verified 08/25/21 11:31 penicillin Allergy Swelling Verified 12/02/14 05:36 Home Medications Medication Instructions Recorded Confirmed Last Taken Type Albuterol Mdi (or & Nicu Only) 1 puff IH TID PRN #1 inha 04/07/18 01/25/20 Unknown Rx [ProAir HFA Inhaler] AtorvaSTATin 10 mg PO QHS #30 tablet 04/07/18 01/25/20 Unknown Rx Folic Acid [Folvite] 1 mg PO QDAY #30 tablet 04/07/18 01/25/20 Unknown Rx Levothyroxine [Synthroid] 150 mcg PO DAILY@0600 #30 tablet 04/07/18 01/20/20 Unknown Rx Multivitamin Tab [Multiple Vitamin 1 each PO QDAY 30 Days tablet 04/07/18 01/25/20 Unknown Rx TAB (Theragran)] Sertraline [Zoloft] 25 mg PO QDAY 30 Days tablet 04/07/18 01/25/20 Unknown Rx Thiamine [Vitamin B-1] 100 mg PO QDAY #30 tablet 04/07/18 01/25/20 Unknown Rx ALPRAZolam [Xanax TAB] 0.25 mg PO BID PRN #10 tab 10/28/18 01/25/20 Unknown Rx Dicyclomine [Bentyl] 20 mg PO QID #10 tablet 10/28/18 01/25/20 Unknown Rx Metoclopramide HCl [Reglan TAB] 5 mg PO TIDAC #10 tablet 10/28/18 01/20/20 Unknown Rx Potassium Chloride [K-Dur] 20 meq PO BID #6 tab 10/28/18 01/25/20 Unknown Rx busPIRone [Buspar] 10 mg PO BID 01/20/20 01/20/20 Unknown History Pantoprazole [Protonix TAB] 40 mg PO BID #60 tablet 01/25/20 Unknown Rx Sucralfate [Carafate] 1 gm PO Q6HR #90 tablet 01/25/20 Unknown Rx Cyclobenzaprine [Flexeril] 10 mg PO TID PRN #12 tablet 09/17/20 Unknown Rx Ibuprofen [Motrin 600 MG tab] 600 mg PO Q8H PRN #20 tablet 09/17/20 Unknown Rx traMADoL [Ultram 50 MG tab] 50 mg PO Q6HR PRN #12 tablet 09/17/20 Unknown Rx Active Meds: Active Medications Acetaminophen (Acetaminophen 325 Mg Tab) 650 mg FEEDTUBE Q4H PRN PRN Reason: Pain MILD(1-3)/Fever >100.5/SAEED Albuterol (Albuterol 2.5 Mg/3 Ml Nebu) 2.5 mg IH Q3HRT PRN PRN Reason: Shortness Of Breath Albuterol/Ipratropium (Ipratropium/Albuterol Sulfate 3 Ml Ampul.Neb) 1 ampul IH Q6HRT [facility]ENDING [facility] TO [facility] Last Admin: 08/19/21 09:14 Dose: 1 ampul Alprazolam (Alprazolam 0.25 Mg Tab) 0.25 mg FEEDTUBE BID PRN PRN Reason: Anxiety Buspirone HCl (Buspirone 10 Mg Tab) 10 mg FEEDTUBE BID WARD Cetirizine HCl (Cetirizine 10 Mg Tab) 20 mg FEEDTUBE BID WARD Famotidine (Famotidine 20 Mg/2 Ml Inj) 20 mg IV BID WARD Folic Acid (Folic Acid 1 Mg Tab) 1 mg FEEDTUBE QDAY WARD Heparin Sodium (Porcine) (Heparin 5,000 Unit/1 Ml Vial) 5,000 unit SUB-Q Q12HR WARD Hydralazine HCl (Hydralazine 20 Mg/1 Ml Inj) 10 mg IV Q6H PRN PRN Reason: SBP >/=160; DBP >/=100 MIDAZOLAM/NS Drip 100mg/100ml (Midazolam/Ns Drip 100mg/100ml) 100 mg in 100 mls @ 1 mls/hr IV TITR WARD; Protocol Last Titration: 08/19/21 07:30 Dose: 4 mg/hr, 4 mls/hr Dextrose/Sodium Chloride (D5/0.45ns) 1,000 mls @ 125 mls/hr IV DIRECT [facility] Last Admin: 08/19/21 06:48 Dose: 125 mls/hr Levothyroxine Sodium (Levothyroxine 75 Mcg Tab) 150 mcg FEEDTUBE DAILY@0600 [facility] Last Admin: 08/19/21 06:49 Dose: Not Given Methylprednisolone Sodium Succinate (Methylprednisolone Sod Succinate 125 Mg/2 Ml Inj) 125 mg IV Q8HR [facility] Last Admin: 08/19/21 07:58 Dose: 125 mg Ondansetron HCl (Ondansetron 4 Mg/2 Ml Inj) 4 mg IV Q8H PRN PRN Reason: Nausea And Vomiting Sertraline HCl (Sertraline 25 Mg Tab) 25 mg FEEDTUBE QDAY [facility] Sodium Chloride (Sodium Chloride 0.9% 10 Ml Flush Syringe) 10 ml IV BID WARD Sodium Chloride (Sodium Chloride 0.9% 10 Ml Flush Syringe) 10 ml IV PRN PRN PRN Reason: LINE FLUSH Thiamine HCl (Thiamine 100 Mg Tab) 100 mg FEEDTUBE QDAY [facility] Review of Systems ROS unobtainable: due to endotracheal tube, due to mental status Physical Examination Vital signs: Vital Signs Pulse Resp BP Pulse Ox 130 H 24 110/70 100 08/19/21 01:58 08/19/21 01:58 08/19/21 01:58 08/19/21 01:58 ENT: other (orally intubated, macroglossia) Ascultation: Bilateral: clear Percussion: Bilateral: not dull Cardiovascular: regular rate and rhythm Gastrointestinal: normoactive bowel sounds Results - Laboratory Findings CBC and BMP: 08/27/21 04:25 08/27/21 04:25 ABG ABG pH 7.465 pH Units (7.350-7.450) H 08/19/21 06:15 ABG pCO2 30.8 mm Hg 08/19/21 06:15 ABG pO2 177.7 mm Hg (80.0-90.0) H 08/19/21 06:15 ABG O2 Saturation 99.2 % (95.0-99.0) H 08/19/21 06:15 PT/INR, D-dimer PT 12.8 Sec. (12.2-14.9) 08/19/21 02:24 INR 0.87 (0.87-1.13) 08/19/21 02:24 Abnormal lab findings: Abnormal Labs 08/19/21 08/19/21 08/19/21 02:24 02:24 02:24 WBC 13.9 H MCV 98 H MCH 33 H RDW 15.7 H Lymphocytes % (Manual) 52.0 H Lymphocytes # (Manual) 7.2 H APTT 20.0 L ABG pH ABG pO2 ABG O2 Saturation Potassium 3.3 L Carbon Dioxide 20 L Glucose 143 H Total Protein 8.3 H 08/19/21 06:15 WBC MCV MCH RDW Lymphocytes % (Manual) Lymphocytes # (Manual) APTT ABG pH 7.465 H ABG pO2 177.7 H ABG O2 Saturation 99.2 H Potassium Carbon Dioxide Glucose Total Protein - Diagnostic Findings Chest x-ray: image reviewed Assessment and Plan 76 y/o female with acute respiratory failure secondary to angioedema 1. Agree with IV steroids 2. Suggest adding scheduled benadryl and pepcid 3. If swelling does not improve in the next 24-48 hours, suggest a trial of FFP 4. Wean FiO2 for sats > 88% CCT 31 minutes
[2021-08-19] MEDS: MULTIVITAMIN / MINERAL ORAL LIQUID 15 ML FEEDTUBE SCH (10:55)
[2021-08-19] MEDS: SERTRALINE 25 MG TAB FEEDTUBE SCH (10:55)
[2021-08-19] MEDS: busPIRone 10 MG TAB FEEDTUBE SCH ×2 (10:55→21:58)
[2021-08-19] MEDS: THIAMINE 100 MG TAB FEEDTUBE SCH (10:56)
[2021-08-19] MEDS: HEPARIN 5,000 UNIT/1 ML VIAL SUB-Q SCH ×2 (10:56→21:58)
[2021-08-19] MEDS: FOLIC ACID 1 MG TAB FEEDTUBE SCH (10:56)
[2021-08-19] MEDS: FAMOTIDINE 20 MG/2 ML INJ IV SCH ×2 (10:57→21:59)
[2021-08-19 11:15] LABS: ABG Base Excess -1.5 mmol/L (-2.0-3.0); ABG HCO3 20.4 mmol/L (20.0-26.0); ABG Methemoglobin 0.6 % (0.0-1.5); ABG Oxygen Saturation 97.6 % (95.0-99.0); ABG PCO2 26.5 mm Hg; ABG PH 7.503 pH Units (7.350-7.450); ABG PO2 90.5 mm Hg (80.0-90.0)
--- NOTE | 2021-08-19 11:49 | XRay Report ---
ABDOMEN 4 total VIEW(S) INDICATION / CLINICAL INFORMATION: NGT placement verification. COMPARISON: Chest x-ray from today FINDINGS: TUBES / LINES: The initial images show the NG tube curled in the distal esophagus but the last couple images show the NG tube well-positioned in the proximal to mid stomach. BOWEL GAS PATTERN: No significant abnormality. FREE AIR / EXTRALUMINAL GAS: None seen. ADDITIONAL FINDINGS: No significant additional findings. IMPRESSION: 1. Satisfactory NG tube placement. Signer Name: William Madden MD Signed: 08/19/2021 11:44 AM Workstation Name: [employer]
[2021-08-19] MEDS: diphenhydrAMINE 50 MG/ML VIAL IV SCH ×2 (11:55→18:01)
[2021-08-19] MEDS ORDERED: MIDAZOLAM/NS Drip 100mg/100ml 100 MG/100 ML BAG IV SCH (12:00)
[2021-08-19] MEDS ORDERED: methylPREDNISolone Sod Suc 125 MG in SODIUM CHLORIDE 0.9% 100 ML IV SCH (14:00)
[2021-08-19] MEDS ORDERED: POTASSIUM CHLORIDE 20 MEQ PACKET FEEDTUBE ONE (17:39)
--- NOTE | 2021-08-19 17:52 | Event Note ---
<RAQUEL ISAACS - Last Filed: 08/19/21 17:51> Date: 08/19/21 This is a 76-year-old female with HTN, depression, hypothyroidism who presented to the emergency department on 08/19 via EMS with angioedema reportedly caused by amlodipine however the patient was able to maintain her airway. Per documentation patient was given patient was given 50 mg of IV Benadryl, 0.5 mg epinephrine, 125 mg of IV Solu-Medrol by EMS. At 0235 patient was intubated in the emergency department. Patient was admitted to the hospitalist service with angioedema and mechanical ventilation for airway protection with consults to [facility]. Hospital course to date: 08/19: Patient started on tube feedings, potassium repleted, started on Benadryl and propofol for sedation. SSI started. Air leak present today however due to swelling of the tongue we will hold off extubation. [facility] plans to try FFP in the a.m. if swelling not better. A/P This is a 76-year-old female with hypertension, psychiatric illness and hypothyroidism admitted with angioedema and intubated for airway protection Neuro: h/o depression -Restart home thiamine, multivitamin, Zoloft, BuSpar and as needed Xanax -Sedated with propofol and Versed -RASS goal 0 to -1 -Avoid delirium -Reorientation as needed -Maintain sleep-wake cycle -As needed analgesia Cardiac: h/o htn -Blood pressure monitoring per protocol -Hydralazine as needed -resume home antihypertenisve regimen when avaliable and if needed Respiratory: Acute hypoxic respiratory failure, angioedema -CCM consulted, appreciate recommendations -Intubated in the emergency department on 08/19 with 7.50 ETT at 24 the lips -A.m. vent settings: Assist-control rate 14, tidal volume 450, PEEP 6, FiO2 30% -See RT notes for titration -A.m. ABG and CXR noted -VAP bundle -SPO2 monitoring -Benadryl, Pepcid, Solu-Medrol GI: MO -24 hours -277 mL -PPI -NTR consulted for tube feedings -BR: Senokot : Hypokalemia -Repelte Potassium -Strict intake and output -Renally dose medications -Avoid nephrotoxic medications -Daily weights -Trend BMP ID: NAD -f/u blood culture -Monitor WBC and temperature curve Endo: Hyperglycemia, h/o hypothyroidism -continue synthroid -Avoid hypoglycemia -SSI -Accu-Cheks q. 6 Heme: Leukocytosis -Trend CBC -Transfuse hemoglobin less than 7 -Monitor for signs of bleeding -SCDs to BLE while in bed -heparin subq The high probability of a clinically significant, sudden or life threatening deterioration of the [resp] system(s) required my full and direct attention, intervention and personal management. The aggregate critical care time was [60] minutes. This time is in addition to time spent performing reported procedures but includes the following: [x] Data Review and interpretation [x] Patient assessment and monitoring of vital signs [x] Documentation [x] Medication orders and management <LEVI CONNELL - Last Filed: 08/26/21 08:58> I saw and evaluated the patient. Discussed with the nurse practitioner and agree with their findings and plan as documented in this note.
--- NOTE | 2021-08-19 23:05 | XRay Report ---
XR abdomen 1V ap INDICATION / CLINICAL INFORMATION: NGT placement. COMPARISON: None available. TECHNIQUE: One view supine AP abdomen. FINDINGS: TUBES / LINES: Esophagogastric tube is looped within the stomach tip directed superiorly towards the GE junction. BOWEL GAS PATTERN: No significant abnormality. FREE AIR / EXTRALUMINAL GAS: None seen. ADDITIONAL FINDINGS: No significant additional findings. IMPRESSION: 1. Esophagogastric tube placement as detailed. Repositioning could be considered. Signer Name: Wilberto Forrester II, MD Signed: 08/19/2021 11:01 PM Workstation Name: [id number]
[2021-08-20] MEDS: diphenhydrAMINE 50 MG/ML VIAL IV SCH ×4 (00:17→18:17)
[2021-08-20] MEDS: IPRATROPIUM/ALBUTEROL SULFATE 3 ML AMPUL.NEB IH SCH ×4 (02:05→21:37)
[2021-08-20 04:52] LABS: ABG Base Excess -2.2 mmol/L (-2.0-3.0); ABG Methemoglobin 0.5 % (0.0-1.5); ABG Oxygen Saturation 97.4 % (95.0-99.0); ABG PCO2 35.6 mm Hg; ABG PH 7.408 pH Units (7.350-7.450); ABG PO2 95.5 mm Hg (80.0-90.0)
[2021-08-20 04:56] LABS: Hematocrit 36.6 % (30.3-42.9); Hemoglobin 12.1 gm/dl (10.1-14.3); Mean Corpuscular HGB Conc 33 % (30-34); Mean Corpuscular Volume 98 fl (79-97); Platelet Count 213 K/mm3 (140-440); Red Blood Count 3.74 M/mm3 (3.65-5.03); Red Cell Distribution Width 15.9 % (13.2-15.2)
[2021-08-20 05:18] LABS: Alanine Aminotransferase 13 units/L (7-56); BUN/Creatinine Ratio 11; Blood Urea Nitrogen 10 mg/dL (7-17); Calcium 8.2 mg/dL (8.4-10.2); Hemolysis Index 28
[2021-08-20] MEDS: methylPREDNISolone Sod Succinate 125 MG/2 ML INJ IV SCH ×3 (05:30→21:58)
[2021-08-20] MEDS: LEVOTHYROXINE 75 MCG TAB FEEDTUBE SCH (05:31)
[2021-08-20 08:05] LABS: Basophils % (Manual) 0 % (0.0-1.8); Eosinophils % (Manual) 0 % (0.0-4.3); Total Cells Counted 100
[2021-08-20 08:07] LABS: Anisocytosis RARE
[2021-08-20 08:08] LABS: Large Platelets Rare; Ovalocytes Rare; Platelet Estimate Consistent w Auto; Poikilocytosis Rare
[2021-08-20] MEDS ORDERED: SODIUM CHLORIDE 0.9% 500 ML 500 ML IV NR (10:00)
[2021-08-20] MEDS ORDERED: DEXTROSE 50% IN WATER (25GM) 50 ML SYRINGE IV PRN (10:00)
[2021-08-20] MEDS: FAMOTIDINE 20 MG/2 ML INJ IV SCH ×2 (10:23→21:57)
[2021-08-20] MEDS: MULTIVITAMIN / MINERAL ORAL LIQUID 15 ML FEEDTUBE SCH (10:23)
[2021-08-20] MEDS: THIAMINE 100 MG TAB FEEDTUBE SCH (10:24)
[2021-08-20] MEDS: busPIRone 10 MG TAB FEEDTUBE SCH ×2 (10:24→21:57)
[2021-08-20] MEDS: SERTRALINE 25 MG TAB FEEDTUBE SCH (10:24)
[2021-08-20] MEDS: HEPARIN 5,000 UNIT/1 ML VIAL SUB-Q SCH ×2 (10:24→21:57)
[2021-08-20] MEDS: FOLIC ACID 1 MG TAB FEEDTUBE SCH (10:24)
--- NOTE | 2021-08-20 11:47 | Progress Note ---
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 Continue with IV steroids 2. Continue scheduled benadryl and pepcid 3. Trial of FFP 4. Wean FiO2 for sats > 88% 5. Keep intubated on mechanical ventilator. CCT 31 minutes Subjective Date of service: 08/20/21 Interval history: Remains sedated on mechanical ventilator. Still with significant tongue swelling. Remain intubated. Objective Vital Signs - 12hr 08/19/21 08/20/21 08/20/21 23:46 00:00 00:12 Temperature 97.2 F L Pulse Rate 87 99 H 84 Pulse Rate [ Bilateral] Pulse Rate [ 75 From Monitor] Respiratory 17 25 H Rate Respiratory Rate [Bilateral ] Blood Pressure 106/71 106/71 129/92 O2 Sat by Pulse 100 100 100 Oximetry 08/20/21 08/20/21 08/20/21 00:16 00:30 00:46 Temperature Pulse Rate 92 H 70 72 Pulse Rate [ Bilateral] Pulse Rate [ From Monitor] Respiratory 18 14 14 Rate Respiratory Rate [Bilateral ] Blood Pressure 129/92 98/67 98/67 O2 Sat by Pulse 100 100 100 Oximetry 08/20/21 08/20/21 08/20/21 01:00 01:16 01:30 Temperature Pulse Rate 72 71 69 Pulse Rate [ Bilateral] Pulse Rate [ From Monitor] Respiratory 14 14 14 Rate Respiratory Rate [Bilateral ] Blood Pressure 99/64 99/64 100/67 O2 Sat by Pulse 99 100 100 Oximetry 08/20/21 08/20/21 08/20/21 01:46 02:00 02:05 Temperature Pulse Rate 67 69 Pulse Rate [ 68 Bilateral] Pulse Rate [ From Monitor] Respiratory 14 14 Rate Respiratory 14 Rate [Bilateral ] Blood Pressure 100/67 103/68 O2 Sat by Pulse 100 100 Oximetry 08/20/21 08/20/21 08/20/21 02:16 02:30 02:46 Temperature Pulse Rate 69 68 68 Pulse Rate [ Bilateral] Pulse Rate [ From Monitor] Respiratory 14 14 14 Rate Respiratory Rate [Bilateral ] Blood Pressure 103/68 95/63 95/63 O2 Sat by Pulse 100 100 100 Oximetry 08/20/21 08/20/21 08/20/21 03:00 03:16 03:30 Temperature Pulse Rate 68 71 73 Pulse Rate [ Bilateral] Pulse Rate [ From Monitor] Respiratory 14 14 14 Rate Respiratory Rate [Bilateral ] Blood Pressure 91/62 91/62 104/73 O2 Sat by Pulse 100 100 100 Oximetry 08/20/21 08/20/21 08/20/21 03:46 03:56 04:00 Temperature 97.2 F L 97.2 F L Pulse Rate 71 74 Pulse Rate [ Bilateral] Pulse Rate [ 75 From Monitor] Respiratory 14 15 Rate Respiratory Rate [Bilateral ] Blood Pressure 104/73 110/72 O2 Sat by Pulse 100 100 Oximetry 08/20/21 08/20/21 08/20/21 04:16 04:30 04:38 Temperature Pulse Rate 78 92 H 92 H Pulse Rate [ Bilateral] Pulse Rate [ From Monitor] Respiratory 16 18 Rate Respiratory Rate [Bilateral ] Blood Pressure 110/72 110/72 126/85 O2 Sat by Pulse 100 100 100 Oximetry 08/20/21 08/20/21 08/20/21 04:46 05:00 05:16 Temperature Pulse Rate 98 H 77 Pulse Rate [ Bilateral] Pulse Rate [ From Monitor] Respiratory 18 9 L Rate Respiratory Rate [Bilateral ] Blood Pressure 126/85 126/85 123/84 O2 Sat by Pulse 99 97 100 Oximetry 08/20/21 08/20/21 08/20/21 05:30 05:46 06:00 Temperature Pulse Rate 73 71 68 Pulse Rate [ Bilateral] Pulse Rate [ From Monitor] Respiratory 14 14 14 Rate Respiratory Rate [Bilateral ] Blood Pressure 82/56 82/56 72/48 O2 Sat by Pulse 100 99 99 Oximetry 08/20/21 08/20/21 08/20/21 06:16 06:30 06:46 Temperature Pulse Rate 68 69 67 Pulse Rate [ Bilateral] Pulse Rate [ From Monitor] Respiratory 14 14 14 Rate Respiratory Rate [Bilateral ] Blood Pressure 72/48 81/51 81/51 O2 Sat by Pulse 99 99 100 Oximetry 08/20/21 08/20/21 08/20/21 07:00 07:16 07:30 Temperature Pulse Rate 67 67 69 Pulse Rate [ Bilateral] Pulse Rate [ From Monitor] Respiratory 14 15 14 Rate Respiratory Rate [Bilateral ] Blood Pressure 86/55 86/55 85/52 O2 Sat by Pulse 99 100 99 Oximetry 08/20/21 08/20/21 08/20/21 07:47 08:00 08:15 Temperature 97.3 F L Pulse Rate 69 68 69 Pulse Rate [ Bilateral] Pulse Rate [ 68 From Monitor] Respiratory 14 15 14 Rate Respiratory Rate [Bilateral ] Blood Pressure 85/52 87/55 87/55 O2 Sat by Pulse 99 100 99 Oximetry 08/20/21 08/20/21 08/20/21 08:31 08:37 08:45 Temperature Pulse Rate 91 H 86 83 Pulse Rate [ 89 Bilateral] Pulse Rate [ From Monitor] Respiratory 33 H 13 14 Rate Respiratory 29 H Rate [Bilateral ] Blood Pressure 87/55 87/55 87/55 O2 Sat by Pulse 98 100 100 Oximetry 08/20/21 08/20/21 08/20/21 09:00 09:15 09:31 Temperature Pulse Rate 89 85 101 H Pulse Rate [ Bilateral] Pulse Rate [ From Monitor] Respiratory 16 15 15 Rate Respiratory Rate [Bilateral ] Blood Pressure 124/77 124/77 123/81 O2 Sat by Pulse 100 100 100 Oximetry 08/20/21 08/20/21 08/20/21 09:45 10:00 10:15 Temperature Pulse Rate 108 H 86 83 Pulse Rate [ Bilateral] Pulse Rate [ From Monitor] Respiratory 22 15 15 Rate Respiratory Rate [Bilateral ] Blood Pressure 123/81 96/64 96/64 O2 Sat by Pulse 99 100 100 Oximetry 08/20/21 08/20/21 08/20/21 10:30 10:45 11:00 Temperature Pulse Rate 78 76 74 Pulse Rate [ Bilateral] Pulse Rate [ From Monitor] Respiratory 15 14 14 Rate Respiratory Rate [Bilateral ] Blood Pressure 82/53 82/53 84/59 O2 Sat by Pulse 99 99 99 Oximetry 08/20/21 11:39 Temperature 97.1 F L Pulse Rate Pulse Rate [ Bilateral] Pulse Rate [ From Monitor] Respiratory Rate Respiratory Rate [Bilateral ] Blood Pressure O2 Sat by Pulse Oximetry Constitutional: no acute distress, other (Sedated) ENT: oropharynx moist, other (Orally intubated significant swelling of the tongue with protrusion) Neck: supple, no lymphadenopathy Effort: other (Supported on ventilator) Ascultation: Bilateral: clear Cardiovascular: regular rate and rhythm Gastrointestinal: normoactive bowel sounds, soft, non-tender, other (Obese) Extremities: no cyanosis, no edema, pink and warm Neurologic: other (Sedated) Psychiatric: other (Sedated) CBC and BMP: 08/20/21 04:25 08/20/21 04:25 ABG, PT/INR, D-dimer: ABG ABG pH 7.408 pH Units (7.350-7.450) 08/20/21 04:30 ABG pCO2 35.6 mm Hg 08/20/21 04:30 ABG pO2 95.5 mm Hg (80.0-90.0) H 08/20/21 04:30 ABG O2 Saturation 97.4 % (95.0-99.0) 08/20/21 04:30 PT/INR, D-dimer PT 12.8 Sec. (12.2-14.9) 08/19/21 02:24 INR 0.87 (0.87-1.13) 08/19/21 02:24 Abnormal lab findings: Abnormal Labs 08/19/21 08/19/21 08/19/21 02:24 02:24 02:24 WBC 13.9 H MCV 98 H MCH 33 H RDW 15.7 H Seg Neuts % (Manual) Lymphocytes % (Manual) 52.0 H Lymphocytes # (Manual) 7.2 H APTT 20.0 L ABG pH ABG pO2 ABG O2 Saturation ABG Base Excess Potassium 3.3 L Carbon Dioxide 20 L Glucose 143 H POC Glucose Calcium Total Protein 8.3 H 08/19/21 08/19/21 08/19/21 06:15 10:20 11:10 WBC MCV MCH RDW Seg Neuts % (Manual) Lymphocytes % (Manual) Lymphocytes # (Manual) APTT ABG pH 7.465 H 7.503 H ABG pO2 177.7 H 90.5 H ABG O2 Saturation 99.2 H ABG Base Excess Potassium Carbon Dioxide Glucose POC Glucose 171 H Calcium Total Protein 08/19/21 08/20/21 08/20/21 16:33 00:03 04:25 WBC MCV 98 H MCH 33 H RDW 15.9 H Seg Neuts % (Manual) 83.0 H Lymphocytes % (Manual) Lymphocytes # (Manual) APTT ABG pH ABG pO2 ABG O2 Saturation ABG Base Excess Potassium Carbon Dioxide Glucose POC Glucose 179 H 133 H Calcium Total Protein 08/20/21 08/20/21 08/20/21 04:25 04:30 05:39 WBC MCV MCH RDW Seg Neuts % (Manual) Lymphocytes % (Manual) Lymphocytes # (Manual) APTT ABG pH ABG pO2 95.5 H ABG O2 Saturation ABG Base Excess -2.2 L Potassium Carbon Dioxide 21 L Glucose 143 H POC Glucose 168 H Calcium 8.2 L Total Protein Chest x-ray: image reviewed (Mild cardiomegaly otherwise negative. ET tube in good position)
[2021-08-20] MEDS: INSULIN REGULAR, HUMAN 100 UNITS/1 ML SUB-Q SCH ×2 (12:09→17:54)
[2021-08-20] MEDS ORDERED: SODIUM CHLORIDE 0.9% 500 ML 500 ML IV SCH (13:00)
[2021-08-20] MEDS: MIDAZOLAM/NS Drip 100mg/100ml 100 MG/100 ML BAG IV SCH (13:54)
--- NOTE | 2021-08-20 15:48 | Progress Note ---
<JOSÉ ANTONIOParvizRAQUELGideon - Last Filed: 08/20/21 15:48> Assessment and Plan Assessment and plan: This is a 76-year-old female with hypertension, psychiatric illness and hypothyroidism admitted with angioedema and intubated for airway protection Neuro: h/o depression -Restart home thiamine, multivitamin, Zoloft, BuSpar and as needed Xanax -Sedated with propofol and Versed -RASS goal 0 to -1 -Avoid delirium -Reorientation as needed -Maintain sleep-wake cycle -As needed analgesia Cardiac: h/o htn -Blood pressure monitoring per protocol -Hydralazine as needed -resume home antihypertenisve regimen when available and if needed -NS bolus x 1 Liter on 08/20 Respiratory: Acute hypoxic respiratory failure, angioedema -CCM consulted, appreciate recommendations -Intubated in the emergency department on 08/19 with 7.50 ETT at 24 the lips -A.m. vent settings: Assist-control rate 14, tidal volume 450, PEEP 6, FiO2 30% -See RT notes for titration -A.m. ABG and CXR noted -VAP bundle -SPO2 monitoring -Benadryl, Pepcid, Solu-Medrol GI: MO -24 hours -775mL -PPI -NTR consulted for tube feedings -BR: Senokot : Hypokalemia (resolved) -Strict intake and output -Renally dose medications -Avoid nephrotoxic medications -Daily weights -Trend BMP ID: NAD -f/u blood culture -Monitor WBC and temperature curve Endo: Hyperglycemia, h/o hypothyroidism -continue synthroid -Avoid hypoglycemia -SSI -Accu-Cheks q. 6 Heme: Leukocytosis (resolved) -Trend CBC -Transfuse hemoglobin less than 7 -Monitor for signs of bleeding -SCDs to BLE while in bed -heparin subq The high probability of a clinically significant, sudden or life threatening deterioration of the [resp] system(s) required my full and direct attention, intervention and personal management. The aggregate critical care time was [90] minutes. This time is in addition to time spent performing reported procedures but includes the following: [x] Data Review and interpretation [x] Patient assessment and monitoring of vital signs [x] Documentation [x] Medication orders and management Disposition Plan: icu Total Time Spent with Patient (Minutes): 90 History Interval history: This is a 76-year-old female with HTN, depression, hypothyroidism who presented to the emergency department on 08/19 via EMS with angioedema reportedly caused by amlodipine however the patient was able to maintain her airway. Per documentation patient was given patient was given 50 mg of IV Benadryl, 0.5 mg epinephrine, 125 mg of IV Solu-Medrol by EMS. At 0235 patient was intubated in the emergency department. Patient was admitted to the hospitalist service with angioedema and mechanical ventilation for airway protection with consults to [facility]. Hospital course to date: 08/19: Patient started on tube feedings, potassium repleted, started on Benadryl and propofol for sedation. SSI started. Air leak present today however due to swelling of the tongue we will hold off extubation. [facility] plans to try FFP in the a.m. if swelling not better. 08/20: Angioedema slightly better so we will hold off FFP today. Updated son at bedside but he did not know what medication she was taking and states that she has not had angioedema in the past. Patient still remains on Versed and propofol. Was given 500 mL bolus overnight for hypotension and will repeat for hypotension. Hospitalist Physical - Constitutional Vitals: Temp Pulse Resp BP Pulse Ox 97.1 F L 81 15 123/90 100 08/20/21 11:39 08/20/21 15:15 08/20/21 15:15 08/20/21 15:15 08/20/21 15:15 General appearance: Present: no acute distress, well-nourished - EENT Eyes: Present: PERRL, EOM intact ENT: poor dentition - Neck Neck: Present: normal ROM - Respiratory Respiratory effort: normal Respiratory: bilateral: diminished - Cardiovascular Rhythm: regular Heart Sounds: Present: S1 & S2. Absent: systolic murmur, diastolic murmur - Extremities Extremities: no ischemia, pulses intact, pulses symmetrical, No edema, normal temperature, normal color Peripheral Pulses: within normal limits - Abdominal General gastrointestinal: soft, non-tender, non-distended, normal bowel sounds - Integumentary Integumentary: Present: warm, dry - Psychiatric Psychiatric: other - Neurologic Neurologic: other (sedated, does not follow commands, intact cough/gag and PERRL) - Allied Health Allied health notes reviewed: nursing, RT, social work Results - Labs CBC & Chem 7: 08/20/21 04:25 08/20/21 04:25 Labs: Laboratory Last Values WBC 9.0 K/mm3 (4.5-11.0) 08/20/21 04:25 RBC 3.74 M/mm3 (3.65-5.03) 08/20/21 04:25 Hgb 12.1 gm/dl (10.1-14.3) 08/20/21 04:25 Hct 36.6 % (30.3-42.9) 08/20/21 04:25 MCV 98 fl (79-97) H 08/20/21 04:25 MCH 33 pg (28-32) H 08/20/21 04:25 MCHC 33 % (30-34) 08/20/21 04:25 RDW 15.9 % (13.2-15.2) H 08/20/21 04:25 Plt Count 213 K/mm3 (140-440) 08/20/21 04:25 Lymph # (Auto) Stem Cutter 08/19/21 02:24 Add Manual Diff Complete 08/20/21 04:25 Total Counted 100 08/20/21 04:25 Seg Neuts % (Manual) 83.0 % (40.0-70.0) H 08/20/21 04:25 Band Neutrophils % 0 % 08/20/21 04:25 Lymphocytes % (Manual) 14.0 % (13.4-35.0) 08/20/21 04:25 Reactive Lymphs % (Man) 0 % 08/20/21 04:25 Monocytes % (Manual) 3.0 % (0.0-7.3) 08/20/21 04:25 Eosinophils % (Manual) 0 % (0.0-4.3) 08/20/21 04:25 Basophils % (Manual) 0 % (0.0-1.8) 08/20/21 04:25 Metamyelocytes % 0 % 08/20/21 04:25 Myelocytes % 0 % 08/20/21 04:25 Promyelocytes % 0 % 08/20/21 04:25 Blast Cells % 0 % 08/20/21 04:25 Nucleated RBC % Not Reportable 08/20/21 04:25 Seg Neutrophils # Man 7.5 K/mm3 (1.8-7.7) 08/20/21 04:25 Band Neutrophils # 0.0 K/mm3 08/20/21 04:25 Lymphocytes # (Manual) 1.3 K/mm3 (1.2-5.4) 08/20/21 04:25 Abs React Lymphs (Man) 0.0 K/mm3 08/20/21 04:25 Monocytes # (Manual) 0.3 K/mm3 (0.0-0.8) 08/20/21 04:25 Eosinophils # (Manual) 0.0 K/mm3 (0.0-0.4) 08/20/21 04:25 Basophils # (Manual) 0.0 K/mm3 (0.0-0.1) 08/20/21 04:25 Metamyelocytes # 0.0 K/mm3 08/20/21 04:25 Myelocytes # 0.0 K/mm3 08/20/21 04:25 Promyelocytes # 0.0 K/mm3 08/20/21 04:25 Blast Cells # 0.0 K/mm3 08/20/21 04:25 WBC Morphology Not Reportable 08/20/21 04:25 Hypersegmented Neuts Not Reportable 08/20/21 04:25 Hyposegmented Neuts Not Reportable 08/20/21 04:25 Hypogranular Neuts Not Reportable 08/20/21 04:25 Smudge Cells Not Reportable 08/20/21 04:25 Toxic Granulation Not Reportable 08/20/21 04:25 Toxic Vacuolation Not Reportable 08/20/21 04:25 Dohle Bodies Not Reportable 08/20/21 04:25 Pelger-Huet Anomaly Not Reportable 08/20/21 04:25 Erik Rods Not Reportable 08/20/21 04:25 Platelet Estimate Consistent w auto 08/20/21 04:25 Clumped Platelets Not Reportable 08/20/21 04:25 Plt Clumps, EDTA Not Reportable 08/20/21 04:25 Large Platelets Rare 08/20/21 04:25 Giant Platelets Not Reportable 08/20/21 04:25 Platelet Satelliting Not Reportable 08/20/21 04:25 Plt Morphology Comment Not Reportable 08/20/21 04:25 RBC Morphology Not Reportable 08/20/21 04:25 Dimorphic RBCs Not Reportable 08/20/21 04:25 Polychromasia Not Reportable 08/20/21 04:25 Hypochromasia Not Reportable 08/20/21 04:25 Poikilocytosis Rare 08/20/21 04:25 Anisocytosis Rare 08/20/21 04:25 Microcytosis Not Reportable 08/20/21 04:25 Macrocytosis Not Reportable 08/20/21 04:25 Spherocytes Not Reportable 08/20/21 04:25 Pappenheimer Bodies Not Reportable 08/20/21 04:25 Sickle Cells Not Reportable 08/20/21 04:25 Target Cells Not Reportable 08/20/21 04:25 Tear Drop Cells Not Reportable 08/20/21 04:25 Ovalocytes Rare 08/20/21 04:25 Helmet Cells Not Reportable 08/20/21 04:25 Rai[place] Bodies Not Reportable 08/20/21 04:25 [place] Rings Not Reportable 08/20/21 04:25 Caprice Cells Not Reportable 08/20/21 04:25 Bite Cells Not Reportable 08/20/21 04:25 Crenated Cell Not Reportable 08/20/21 04:25 Elliptocytes Not Reportable 08/20/21 04:25 Acanthocytes (Spur) Not Reportable 08/20/21 04:25 Rouleaux Not Reportable 08/20/21 04:25 Hemoglobin C Crystals Not Reportable 08/20/21 04:25 Schistocytes Not Reportable 08/20/21 04:25 Malaria parasites Not Reportable 08/20/21 04:25 Marco Bodies Not Reportable 08/20/21 04:25 Hem Pathologist Commnt No 08/20/21 04:25 PT 12.8 Sec. (12.2-14.9) 08/19/21 02:24 INR 0.87 (0.87-1.13) 08/19/21 02:24 APTT 20.0 Sec. (24.2-36.6) L 08/19/21 02:24 ABG pH 7.408 pH Units (7.350-7.450) 08/20/21 04:30 ABG pCO2 35.6 mm Hg 08/20/21 04:30 ABG pO2 95.5 mm Hg (80.0-90.0) H 08/20/21 04:30 ABG HCO3 22.0 mmol/L (20.0-26.0) 08/20/21 04:30 ABG O2 Saturation 97.4 % (95.0-99.0) 08/20/21 04:30 ABG O2 Content 17.2 (0.0-44) 08/20/21 04:30 ABG Base Excess -2.2 mmol/L (-2.0-3.0) L 08/20/21 04:30 ABG Hemoglobin 12.7 gm/dl (12.0-16.0) 08/20/21 04:30 ABG Carboxyhemoglobin 1.0 % (0.0-5.0) 08/20/21 04:30 ABG Methemoglobin 0.5 % (0.0-1.5) 08/20/21 04:30 Oxyhemoglobin 96.0 % (95.0-99.0) 08/20/21 04:30 FiO2 30 % 08/20/21 04:30 Sodium 143 mmol/L (137-145) 08/20/21 04:25 Potassium 3.9 mmol/L (3.6-5.0) 08/20/21 04:25 Chloride 106.7 mmol/L (98-107) 08/20/21 04:25 Carbon Dioxide 21 mmol/L (22-30) L 08/20/21 04:25 Anion Gap 19 mmol/L 08/20/21 04:25 BUN 10 mg/dL (7-17) 08/20/21 04:25 Creatinine 0.9 mg/dL (0.6-1.2) 08/20/21 04:25 Estimated GFR > 60 ml/min 08/20/21 04:25 BUN/Creatinine Ratio 11 % 08/20/21 04:25 Glucose 143 mg/dL (65-100) H 08/20/21 04:25 POC Glucose 151 mg/dL (70-105) H 08/20/21 12:04 Calcium 8.2 mg/dL (8.4-10.2) L 08/20/21 04:25 Total Bilirubin 0.40 mg/dL (0.1-1.2) 08/20/21 04:25 AST 23 units/L (5-40) 08/20/21 04:25 ALT 13 units/L (7-56) 08/20/21 04:25 Alkaline Phosphatase 94 units/L (35-129) 08/20/21 04:25 Total Protein 7.3 g/dL (6.3-8.2) 08/20/21 04:25 Albumin 4.0 g/dL (3.9-5) 08/20/21 04:25 Albumin/Globulin Ratio 1.2 % 08/20/21 04:25 Esquivel/IV: Voiding Method Indwelling Catheter Active Medications - Current Medications Current Medications: Generic Name Dose Route Start Last Admin Trade Name Freq PRN Reason Stop Dose Admin Acetaminophen 650 mg 08/19/21 06:00 Acetaminophen 325 Mg Tab FEEDTUBE Q4H PRN Pain MILD(1-3)/Fever >100.5/SAEED Albuterol 2.5 mg 08/19/21 04:50 Albuterol 2.5 Mg/3 Ml Nebu IH Q3HRT PRN Shortness Of Breath Albuterol/Ipratropium 1 ampul 08/19/21 08:00 08/20/21 08:37 Ipratropium/Albuterol Sulfate 3 Ml Ampul.Neb IH 1 ampul Q6HRT WARD Administration Alprazolam 0.25 mg 08/19/21 06:00 Alprazolam 0.25 Mg Tab FEEDTUBE BID PRN Anxiety Buspirone HCl 10 mg 08/19/21 10:00 08/20/21 10:24 Buspirone 10 Mg Tab FEEDTUBE 10 mg BID WARD Administration Dextrose 50 ml 08/20/21 10:00 Dextrose 50% In Water (25gm) 50 Ml Syringe IV Q30MIN PRN Hypoglycemia Protocol Diphenhydramine HCl 25 mg 08/19/21 12:00 08/20/21 12:08 Diphenhydramine 50 Mg/Ml Vial IV 25 mg Q6H WARD Administration Famotidine 20 mg 08/19/21 10:00 08/20/21 10:23 Famotidine 20 Mg/2 Ml Inj IV 20 mg BID WARD Administration Folic Acid 1 mg 08/19/21 10:00 08/20/21 10:24 Folic Acid 1 Mg Tab FEEDTUBE 1 mg QDAY WARD Administration Heparin Sodium (Porcine) 5,000 unit 08/19/21 10:00 08/20/21 10:24 Heparin 5,000 Unit/1 Ml Vial SUB-Q 5,000 unit Q12HR WARD Administration Hydralazine HCl 10 mg 08/19/21 05:03 Hydralazine 20 Mg/1 Ml Inj IV Q6H PRN SBP >/=160; DBP >/=100 MIDAZOLAM/NS Drip 100mg/100ml 100 mg in 100 mls @ 1 mls/hr 08/19/21 04:00 08/20/21 13:54 Midazolam/Ns Drip 100mg/100ml IV 4 mg/hr TITR WARD 4 mls/hr Administration Protocol 1 MG/HR Dextrose/Sodium Chloride 1,000 mls @ 125 mls/hr 08/19/21 05:00 08/19/21 06:48 D5/0.45ns IV 125 mls/hr DIRECT WARD Administration Propofol 1,000 mg in 100 mls @ 2.722 mls/hr 08/19/21 12:00 08/20/21 15:20 Diprivan 10 Mg/Ml IV 40 mcg/kg/min TITR WARD 21.772 mls/hr Titration Protocol 5 MCG/KG/MIN Sodium Chloride 500 mls @ 999 mls/hr 08/20/21 13:00 08/20/21 13:12 Nacl 0.9% 500 Ml IV 08/20/21 18:00 999 mls/hr ONCE@1300 WARD Administration Insulin Human Regular 0 units 08/20/21 12:00 08/20/21 12:09 Insulin Regular, Human 100 Units/1 Ml SUB-Q 2 units Q6H WARD Administration Protocol Levothyroxine Sodium 150 mcg 08/19/21 06:00 08/20/21 05:31 Levothyroxine 75 Mcg Tab FEEDTUBE 150 mcg DAILY@0600 WARD Administration Methylprednisolone Sodium Succinate 125 mg 08/19/21 08:00 08/20/21 13:13 Methylprednisolone Sod Succinate 125 Mg/2 Ml Inj IV 125 mg Q8HR WARD Administration Ondansetron HCl 4 mg 08/19/21 04:50 Ondansetron 4 Mg/2 Ml Inj IV Q8H PRN Nausea And Vomiting Senna 8.8 mg 08/20/21 22:00 Sennosides Oral Liqd 8.8 Mg/5 Ml Oral Liqd PO QHS WARD Sertraline HCl 25 mg 08/19/21 10:00 08/20/21 10:24 Sertraline 25 Mg Tab FEEDTUBE 25 mg QDAY WARD Administration Sodium Chloride 10 ml 08/19/21 10:00 08/20/21 10:24 Sodium Chloride 0.9% 10 Ml Flush Syringe IV 10 ml BID WARD Administration Sodium Chloride 10 ml 08/19/21 04:50 Sodium Chloride 0.9% 10 Ml Flush Syringe IV PRN PRN LINE FLUSH Thiamine HCl 100 mg 08/19/21 10:00 08/20/21 10:24 Thiamine 100 Mg Tab FEEDTUBE 100 mg QDAY WARD Administration Nutrition/Malnutrition Assess - Dietary Evaluation Nutrition/Malnutrition Findings: Nutrition Notes Start: 08/19/21 10:13 Freq: Status: Active Protocol: Document 08/20/21 14:58 ABRAHAM (Rec: 08/20/21 15:08 ABRAHAM [id number]) Nutrition Notes Initial or Follow up Brief Note Current Diagnosis Hypertension Other Pertinent Diagnosis Brent Angioedema, Myxedema, Hypothyroidsm, Hypokalemia, Psychosis. Current Diet TF-Jevity 1.2 Dieudonne @ 45 ml/hr ( from L 08/19). Height 4 ft 11 in Weight 90.718 kg [place] Body Weight (kg) 43.18 BMI 40.4 Weight change and time frame No body weight change reported in 1 day. Weight Status Morbidly Obese Subjective/Other Information RD consult for risk of malnutrition assessment, and routine F/U on TF tolerance. TF continues as prescribed, well tolerated. Pt is on Mechanical Ventilation, O2 saturation @ 100%, according to Physical Assessment History notes. Pt shows no signs of concern for risk of malnutrition at the time, according to Physical Assessment History notes. Percent of energy/protein needs met: Prescribed TF-Jevity 1.2 Dieudonne @ 45 ml/hr provides for energy/ protein needs (1,300 Kcal/60 g ) during LOS, 102% Kcal; 90% AA. #1 Nutrition Diagnosis Inadequate oral intake Diagnosis Progress(for reassessment Continues documentation) Is patient on ventilator? Yes Is Patient Ambulatory and/or Out of Bed No REE-([facility]-confined to bed) 1575.480 Kcal/Kg value to use for calculation 14 Approximate Energy Requirements Using 1270 kcal/Kg Calculation Used for Recommendations Kcal/kg Additional Notes Protein: 1-1.2 g/Kg AdjBW; 67- 80 g/day. Fluids: 1 ml/Kcal, or as per MD. Nutrition Intervention Nutrition Support: Continue Jevity 1.2 Dieudonne @ 45 ml/hr. Flush: 70 ml water Q 4 hr, or as per MD. Kcal 1,300 Protein (gm) 60 Carbohydrates (gm) 184 Fat (gm) 43 Fluid (mL) 874 Fiber (gm) 20 % RDI: 102% Kcal; 90% AA. Goal #1 Provide at least 75% of energy /protein needs through Enteral Feeding during LOS. Goal #2 Maintain body weight within +/ -3% of admission body weight during LOS. Follow-Up By: 08/27/21 Additional Comments Continue monitoring TF tolerance and BM. <CATRINA MONDRAGON - Last Filed: 08/21/21 07:20> Assessment and Plan Assessment and plan: I saw and evaluated the patient. I agree with the findings and the plan of care as documented in the Nurse Practitioner's~note, with the following corrections and additions. Hospitalist Physical - Constitutional Vitals: Temp Pulse Resp BP Pulse Ox 97.4 F L 74 15 109/67 100 08/21/21 04:00 08/21/21 06:00 08/21/21 06:00 08/21/21 06:00 08/21/21 06:00 Results - Labs CBC & Chem 7: 08/21/21 04:58 08/21/21 04:58 Labs: Laboratory Last Values WBC 10.0 K/mm3 (4.5-11.0) 08/21/21 04:58 RBC 3.64 M/mm3 (3.65-5.03) L 08/21/21 04:58 Hgb 11.8 gm/dl (10.1-14.3) 08/21/21 04:58 Hct 36.2 % (30.3-42.9) 08/21/21 04:58 MCV 100 fl (79-97) H 08/21/21 04:58 MCH 32 pg (28-32) 08/21/21 04:58 MCHC 33 % (30-34) 08/21/21 04:58 RDW 16.4 % (13.2-15.2) H 08/21/21 04:58 Plt Count 215 K/mm3 (140-440) 08/21/21 04:58 Lymph # (Auto) Stem Cutter 08/19/21 02:24 Add Manual Diff Complete 08/20/21 04:25 Total Counted 100 08/20/21 04:25 Seg Neuts % (Manual) 83.0 % (40.0-70.0) H 08/20/21 04:25 Band Neutrophils % 0 % 08/20/21 04:25 Lymphocytes % (Manual) 14.0 % (13.4-35.0) 08/20/21 04:25 Reactive Lymphs % (Man) 0 % 08/20/21 04:25 Monocytes % (Manual) 3.0 % (0.0-7.3) 08/20/21 04:25 Eosinophils % (Manual) 0 % (0.0-4.3) 08/20/21 04:25 Basophils % (Manual) 0 % (0.0-1.8) 08/20/21 04:25 Metamyelocytes % 0 % 08/20/21 04:25 Myelocytes % 0 % 08/20/21 04:25 Promyelocytes % 0 % 08/20/21 04:25 Blast Cells % 0 % 08/20/21 04:25 Nucleated RBC % Not Reportable 08/20/21 04:25 Seg Neutrophils # Man 7.5 K/mm3 (1.8-7.7) 08/20/21 04:25 Band Neutrophils # 0.0 K/mm3 08/20/21 04:25 Lymphocytes # (Manual) 1.3 K/mm3 (1.2-5.4) 08/20/21 04:25 Abs React Lymphs (Man) 0.0 K/mm3 08/20/21 04:25 Monocytes # (Manual) 0.3 K/mm3 (0.0-0.8) 08/20/21 04:25 Eosinophils # (Manual) 0.0 K/mm3 (0.0-0.4) 08/20/21 04:25 Basophils # (Manual) 0.0 K/mm3 (0.0-0.1) 08/20/21 04:25 Metamyelocytes # 0.0 K/mm3 08/20/21 04:25 Myelocytes # 0.0 K/mm3 08/20/21 04:25 Promyelocytes # 0.0 K/mm3 08/20/21 04:25 Blast Cells # 0.0 K/mm3 08/20/21 04:25 WBC Morphology Not Reportable 08/20/21 04:25 Hypersegmented Neuts Not Reportable 08/20/21 04:25 Hyposegmented Neuts Not Reportable 08/20/21 04:25 Hypogranular Neuts Not Reportable 08/20/21 04:25 Smudge Cells Not Reportable 08/20/21 04:25 Toxic Granulation Not Reportable 08/20/21 04:25 Toxic Vacuolation Not Reportable 08/20/21 04:25 Dohle Bodies Not Reportable 08/20/21 04:25 Pelger-Huet Anomaly Not Reportable 08/20/21 04:25 Erik Rods Not Reportable 08/20/21 04:25 Platelet Estimate Consistent w auto 08/20/21 04:25 Clumped Platelets Not Reportable 08/20/21 04:25 Plt Clumps, EDTA Not Reportable 08/20/21 04:25 Large Platelets Rare 08/20/21 04:25 Giant Platelets Not Reportable 08/20/21 04:25 Platelet Satelliting Not Reportable 08/20/21 04:25 Plt Morphology Comment Not Reportable 08/20/21 04:25 RBC Morphology Not Reportable 08/20/21 04:25 Dimorphic RBCs Not Reportable 08/20/21 04:25 Polychromasia Not Reportable 08/20/21 04:25 Hypochromasia Not Reportable 08/20/21 04:25 Poikilocytosis Rare 08/20/21 04:25 Anisocytosis Rare 08/20/21 04:25 Microcytosis Not Reportable 08/20/21 04:25 Macrocytosis Not Reportable 08/20/21 04:25 Spherocytes Not Reportable 08/20/21 04:25 Pappenheimer Bodies Not Reportable 08/20/21 04:25 Sickle Cells Not Reportable 08/20/21 04:25 Target Cells Not Reportable 08/20/21 04:25 Tear Drop Cells Not Reportable 08/20/21 04:25 Ovalocytes Rare 08/20/21 04:25 Helmet Cells Not Reportable 08/20/21 04:25 Rai-[place] Bodies Not Reportable 08/20/21 04:25 [place] Rings Not Reportable 08/20/21 04:25 Caprice Cells Not Reportable 08/20/21 04:25 Bite Cells Not Reportable 08/20/21 04:25 Crenated Cell Not Reportable 08/20/21 04:25 Elliptocytes Not Reportable 08/20/21 04:25 Acanthocytes (Spur) Not Reportable 08/20/21 04:25 Rouleaux Not Reportable 08/20/21 04:25 Hemoglobin C Crystals Not Reportable 08/20/21 04:25 Schistocytes Not Reportable 08/20/21 04:25 Malaria parasites Not Reportable 08/20/21 04:25 Marco Bodies Not Reportable 08/20/21 04:25 Hem Pathologist Commnt No 08/20/21 04:25 PT 12.8 Sec. (12.2-14.9) 08/19/21 02:24 INR 0.87 (0.87-1.13) 08/19/21 02:24 APTT 20.0 Sec. (24.2-36.6) L 08/19/21 02:24 ABG pH 7.401 pH Units (7.350-7.450) 08/21/21 04:59 ABG pCO2 35.7 mm Hg 08/21/21 04:59 ABG pO2 86.7 mm Hg (80.0-90.0) 08/21/21 04:59 ABG HCO3 21.6 mmol/L (20.0-26.0) 08/21/21 04:59 ABG O2 Saturation 97.0 % (95.0-99.0) 08/21/21 04:59 ABG O2 Content 15.6 (0.0-44) 08/21/21 04:59 ABG Base Excess -2.6 mmol/L (-2.0-3.0) L 08/21/21 04:59 ABG Hemoglobin 11.6 gm/dl (12.0-16.0) L 08/21/21 04:59 ABG Carboxyhemoglobin 1.0 % (0.0-5.0) 08/21/21 04:59 ABG Methemoglobin 0.6 % (0.0-1.5) 08/21/21 04:59 Oxyhemoglobin 95.5 % (95.0-99.0) 08/21/21 04:59 FiO2 30 % 08/21/21 04:59 Sodium 143 mmol/L (137-145) 08/21/21 04:58 Potassium 3.5 mmol/L (3.6-5.0) L 08/21/21 04:58 Chloride 109.5 mmol/L (98-107) H 08/21/21 04:58 Carbon Dioxide 19 mmol/L (22-30) L 08/21/21 04:58 Anion Gap 18 mmol/L 08/21/21 04:58 BUN 13 mg/dL (7-17) 08/21/21 04:58 Creatinine 0.7 mg/dL (0.6-1.2) 08/21/21 04:58 Estimated GFR > 60 ml/min 08/21/21 04:58 BUN/Creatinine Ratio 19 % 08/21/21 04:58 Glucose 159 mg/dL (65-100) H 08/21/21 04:58 POC Glucose 143 mg/dL (70-105) H 08/21/21 05:22 Calcium 8.3 mg/dL (8.4-10.2) L 08/21/21 04:58 Total Bilirubin 0.40 mg/dL (0.1-1.2) 08/20/21 04:25 AST 23 units/L (5-40) 08/20/21 04:25 ALT 13 units/L (7-56) 08/20/21 04:25 Alkaline Phosphatase 94 units/L (35-129) 08/20/21 04:25 Total Protein 7.3 g/dL (6.3-8.2) 08/20/21 04:25 Albumin 4.0 g/dL (3.9-5) 08/20/21 04:25 Albumin/Globulin Ratio 1.2 % 08/20/21 04:25 Esquivel/IV: Voiding Method Indwelling Catheter Active Medications - Current Medications Current Medications: Generic Name Dose Route Start Last Admin Trade Name Freq PRN Reason Stop Dose Admin Acetaminophen 650 mg 08/19/21 06:00 Acetaminophen 325 Mg Tab FEEDTUBE Q4H PRN Pain MILD(1-3)/Fever >100.5/SAEED Albuterol 2.5 mg 08/19/21 04:50 Albuterol 2.5 Mg/3 Ml Nebu IH Q3HRT PRN Shortness Of Breath Albuterol/Ipratropium 1 ampul 08/19/21 08:00 08/21/21 01:58 Ipratropium/Albuterol Sulfate 3 Ml Ampul.Neb IH 1 ampul Q6HRT WARD Administration Alprazolam 0.25 mg 08/19/21 06:00 Alprazolam 0.25 Mg Tab FEEDTUBE BID PRN Anxiety Buspirone HCl 10 mg 08/19/21 10:00 08/20/21 21:57 Buspirone 10 Mg Tab FEEDTUBE 10 mg BID WARD Administration Dextrose 50 ml 08/20/21 10:00 Dextrose 50% In Water (25gm) 50 Ml Syringe IV Q30MIN PRN Hypoglycemia Protocol Diphenhydramine HCl 25 mg 08/19/21 12:00 08/21/21 05:39 Diphenhydramine 50 Mg/Ml Vial IV 25 mg Q6H WARD Administration Famotidine 20 mg 08/19/21 10:00 08/20/21 21:57 Famotidine 20 Mg/2 Ml Inj IV 20 mg BID WARD Administration Folic Acid 1 mg 08/19/21 10:00 08/20/21 10:24 Folic Acid 1 Mg Tab FEEDTUBE 1 mg QDAY WARD Administration Heparin Sodium (Porcine) 5,000 unit 08/19/21 10:00 08/20/21 21:57 Heparin 5,000 Unit/1 Ml Vial SUB-Q 5,000 unit Q12HR WARD Administration Hydralazine HCl 10 mg 08/19/21 05:03 Hydralazine 20 Mg/1 Ml Inj IV Q6H PRN SBP >/=160; DBP >/=100 MIDAZOLAM/NS Drip 100mg/100ml 100 mg in 100 mls @ 1 mls/hr 08/19/21 04:00 08/21/21 05:39 Midazolam/Ns Drip 100mg/100ml IV 4 mg/hr TITR AWRD 4 mls/hr Administration Protocol 1 MG/HR Dextrose/Sodium Chloride 1,000 mls @ 125 mls/hr 08/19/21 05:00 08/19/21 06:48 D5/0.45ns IV 125 mls/hr DIRECT WARD Administration Propofol 1,000 mg in 100 mls @ 2.722 mls/hr 08/19/21 12:00 08/21/21 01:40 Diprivan 10 Mg/Ml IV 35 mcg/kg/min TITR WARD 19.051 mls/hr Titration Protocol 5 MCG/KG/MIN Insulin Human Regular 0 units 08/20/21 12:00 08/21/21 05:38 Insulin Regular, Human 100 Units/1 Ml SUB-Q Not Given Q6H [facility] Protocol Levothyroxine Sodium 150 mcg 08/19/21 06:00 08/21/21 05:39 Levothyroxine 75 Mcg Tab FEEDTUBE 150 mcg DAILY@0600 WARD Administration Methylprednisolone Sodium Succinate 125 mg 08/19/21 08:00 08/21/21 05:38 Methylprednisolone Sod Succinate 125 Mg/2 Ml Inj IV 125 mg Q8HR WARD Administration Ondansetron HCl 4 mg 08/19/21 04:50 Ondansetron 4 Mg/2 Ml Inj IV Q8H PRN Nausea And Vomiting Senna 8.8 mg 08/20/21 22:00 08/20/21 21:58 Sennosides Oral Liqd 8.8 Mg/5 Ml Oral Liqd PO 8.8 mg QHS WARD Administration Sertraline HCl 25 mg 08/19/21 10:00 08/20/21 10:24 Sertraline 25 Mg Tab FEEDTUBE 25 mg QDAY WARD Administration Sodium Chloride 10 ml 08/19/21 10:00 08/20/21 21:58 Sodium Chloride 0.9% 10 Ml Flush Syringe IV 10 ml BID WARD Administration Sodium Chloride 10 ml 08/19/21 04:50 Sodium Chloride 0.9% 10 Ml Flush Syringe IV PRN PRN LINE FLUSH Thiamine HCl 100 mg 08/19/21 10:00 08/20/21 10:24 Thiamine 100 Mg Tab FEEDTUBE 100 mg QDAY WARD Administration Nutrition/Malnutrition Assess - Dietary Evaluation Nutrition/Malnutrition Findings: Nutrition Notes Start: 08/19/21 10:13 Freq: Status: Active Protocol: Document 08/20/21 14:58 ABRAHAM (Rec: 08/20/21 15:08 ABRAHAM [id number]) Nutrition Notes Initial or Follow up Brief Note Current Diagnosis Hypertension Other Pertinent Diagnosis Brent Angioedema, Myxedema, Hypothyroidsm, Hypokalemia, Psychosis. Current Diet TF-Jevity 1.2 [place]udonne @ 45 ml/hr ( from L 08/19). Height 4 ft 11 in Weight 90.718 kg [place] Body Weight (kg) 43.18 BMI 40.4 Weight change and time frame No body weight change reported in 1 day. Weight Status Morbidly Obese Subjective/Other Information RD consult for risk of malnutrition assessment, and routine F/U on TF tolerance. TF continues as prescribed, well tolerated. Pt is on Mechanical Ventilation, O2 saturation @ 100%, according to Physical Assessment History notes. Pt shows no signs of concern for risk of malnutrition at the time, according to Physical Assessment History notes. Percent of energy/protein needs met: Prescribed TF-Jevity 1.2 Dieudonne @ 45 ml/hr provides for energy/ protein needs (1,300 Kcal/60 g ) during LOS, 102% Kcal; 90% AA. #1 Nutrition Diagnosis Inadequate oral intake Diagnosis Progress(for reassessment Continues documentation) Is patient on ventilator? Yes Is Patient Ambulatory and/or Out of Bed No REE-([place]-confined to bed) 1575.480 Kcal/Kg value to use for calculation 14 Approximate Energy Requirements Using 1270 kcal/Kg Calculation Used for Recommendations Kcal/kg Additional Notes Protein: 1-1.2 g/Kg AdjBW; 67- 80 g/day. Fluids: 1 ml/Kcal, or as per MD. Nutrition Intervention Nutrition Support: Continue Jevity 1.2 Dieudonne @ 45 ml/hr. Flush: 70 ml water Q 4 hr, or as per MD. Kcal 1,300 Protein (gm) 60 Carbohydrates (gm) 184 Fat (gm) 43 Fluid (mL) 874 Fiber (gm) 20 % RDI: 102% Kcal; 90% AA. Goal #1 Provide at least 75% of energy /protein needs through Enteral Feeding during LOS. Goal #2 Maintain body weight within +/ -3% of admission body weight during LOS. Follow-Up By: 08/27/21 Additional Comments Continue monitoring TF tolerance and BM.
[2021-08-20] MEDS: SENNOSIDES ORAL LIQD 8.8 MG/5 ML ORAL LIQD PO SCH (21:58)
[2021-08-21] MEDS: INSULIN REGULAR, HUMAN 100 UNITS/1 ML SUB-Q SCH ×4 (00:44→18:02)
[2021-08-21] MEDS: diphenhydrAMINE 50 MG/ML VIAL IV SCH ×4 (00:51→18:08)
[2021-08-21] MEDS: IPRATROPIUM/ALBUTEROL SULFATE 3 ML AMPUL.NEB IH SCH ×4 (01:58→20:51)
[2021-08-21 05:17] LABS: ABG Base Excess -2.6 mmol/L (-2.0-3.0); ABG HCO3 21.6 mmol/L (20.0-26.0); ABG Methemoglobin 0.6 % (0.0-1.5); ABG PCO2 35.7 mm Hg; ABG PH 7.401 pH Units (7.350-7.450); ABG PO2 86.7 mm Hg (80.0-90.0)
[2021-08-21 05:24] LABS: Hematocrit 36.2 % (30.3-42.9); Hemoglobin 11.8 gm/dl (10.1-14.3); Mean Corpuscular HGB Conc 33 % (30-34); Mean Corpuscular Volume 100 fl (79-97); Platelet Count 215 K/mm3 (140-440); Red Blood Count 3.64 M/mm3 (3.65-5.03); Red Cell Distribution Width 16.4 % (13.2-15.2)
[2021-08-21 05:35] LABS: Blood Urea Nitrogen 13 mg/dL (7-17); Calcium 8.3 mg/dL (8.4-10.2); Hemolysis Index 16
[2021-08-21 05:37] LABS: BUN/Creatinine Ratio 19
[2021-08-21] MEDS: methylPREDNISolone Sod Succinate 125 MG/2 ML INJ IV SCH ×3 (05:38→21:43)
[2021-08-21] MEDS: LEVOTHYROXINE 75 MCG TAB FEEDTUBE SCH (05:39)
[2021-08-21] MEDS: MIDAZOLAM/NS Drip 100mg/100ml 100 MG/100 ML BAG IV SCH ×2 (05:39→22:06)
[2021-08-21] MEDS: FOLIC ACID 1 MG TAB FEEDTUBE SCH (09:49)
[2021-08-21] MEDS: busPIRone 10 MG TAB FEEDTUBE SCH ×2 (09:49→21:42)
[2021-08-21] MEDS: SERTRALINE 25 MG TAB FEEDTUBE SCH (09:49)
[2021-08-21] MEDS: MULTIVITAMIN / MINERAL ORAL LIQUID 15 ML FEEDTUBE SCH (09:49)
[2021-08-21] MEDS: FAMOTIDINE 20 MG/2 ML INJ IV SCH ×2 (09:49→21:42)
[2021-08-21] MEDS: HEPARIN 5,000 UNIT/1 ML VIAL SUB-Q SCH ×2 (09:49→21:42)
[2021-08-21] MEDS: THIAMINE 100 MG TAB FEEDTUBE SCH (09:50)
[2021-08-21] MEDS ORDERED: SODIUM CHLORIDE 0.9% 500 ML 500 ML IV ONE (11:26)
[2021-08-21] MEDS ORDERED: POTASSIUM CHLORIDE 20 MEQ PACKET FEEDTUBE ONE ×2 (12:28→15:44)
--- NOTE | 2021-08-21 12:40 | Progress Note ---
<JOSÉ ANTONIOParvizRAQUELGideon - Last Filed: 08/21/21 12:26> Assessment and Plan Assessment and plan: This is a 76-year-old female with hypertension, psychiatric illness and hypothyroidism admitted with angioedema and intubated for airway protection Neuro: h/o depression -Restart home thiamine, multivitamin, Zoloft, BuSpar and as needed Xanax -Sedated with propofol and Versed -RASS goal 0 to -1 -Avoid delirium -Reorientation as needed -Maintain sleep-wake cycle -As needed analgesia Cardiac: h/o htn -Blood pressure monitoring per protocol -Hydralazine as needed -resume home antihypertenisve regimen when available and if needed -NS bolus x 1 Liter on 08/20 Respiratory: Acute hypoxic respiratory failure, angioedema -CCM consulted, appreciate recommendations -Intubated in the emergency department on 08/19 with 7.50 ETT at 24 the lips -A.m. vent settings: Assist-control rate 14, tidal volume 450, PEEP 6, FiO2 30% -See RT notes for titration -A.m. ABG and CXR noted -VAP bundle -SPO2 monitoring -Benadryl, Pepcid, Solu-Medrol GI: MO -24 hours +175 mL -PPI -NTR consulted for tube feedings -BR: Senokot : Hypokalemia -Strict intake and output -Renally dose medications -Avoid nephrotoxic medications -Daily weights -Trend BMP -replete K ID: NAD -f/u blood culture -Monitor WBC and temperature curve Endo: Hyperglycemia, h/o hypothyroidism -continue synthroid -Avoid hypoglycemia -SSI -Accu-Cheks q. 6 Heme: Leukocytosis (resolved) -Trend CBC -Transfuse hemoglobin less than 7 -Monitor for signs of bleeding -SCDs to BLE while in bed -heparin subq The high probability of a clinically significant, sudden or life threatening deterioration of the [resp] system(s) required my full and direct attention, intervention and personal management. The aggregate critical care time was [90] minutes. This time is in addition to time spent performing reported procedures but includes the following: [x] Data Review and interpretation [x] Patient assessment and monitoring of vital signs [x] Documentation [x] Medication orders and management Disposition Plan: icu Total Time Spent with Patient (Minutes): 60 History Interval history: This is a 76-year-old female with HTN, depression, hypothyroidism who presented to the emergency department on 08/19 via EMS with angioedema reportedly caused by amlodipine however the patient was able to maintain her airway. Per documentation patient was given patient was given 50 mg of IV Benadryl, 0.5 mg epinephrine, 125 mg of IV Solu-Medrol by EMS. At 0235 patient was intubated in the emergency department. Patient was admitted to the hospitalist service with angioedema and mechanical ventilation for airway protection with consults to [facility]. Hospital course to date: 08/19: Patient started on tube feedings, potassium repleted, started on Benadryl and propofol for sedation. SSI started. Air leak present today however due to swelling of the tongue we will hold off extubation. [facility] plans to try FFP in the a.m. if swelling not better. 08/20: Angioedema slightly better so we will hold off FFP today. Updated son at bedside but he did not know what medication she was taking and states that she has not had angioedema in the past. Patient still remains on Versed and propofol. Was given 500 mL bolus overnight for hypotension and will repeat for hypotension. 08/21: Leak test today randolph bedside with RT shows no leak and will give FFP today. Tongue looks a bit smaller today but given no rosana, we will not extubate today. Sedated with propofol and versed. Son at bedside today. Hospitalist Physical - Constitutional Vitals: Temp Pulse Resp BP Pulse Ox 98.1 F 82 16 130/85 100 08/21/21 11:38 08/21/21 10:45 08/21/21 10:45 08/21/21 10:45 08/21/21 10:45 General appearance: Present: no acute distress, well-nourished, obese - EENT Eyes: Present: PERRL, EOM intact ENT: dentition normal - Neck Neck: Present: normal ROM - Respiratory Respiratory effort: normal Respiratory: bilateral: CTA, diminished - Cardiovascular Rhythm: regular Heart Sounds: Present: S1 & S2. Absent: systolic murmur, diastolic murmur - Extremities Extremities: no ischemia, pulses intact, pulses symmetrical, No edema, normal temperature, normal color Peripheral Pulses: within normal limits - Abdominal General gastrointestinal: soft, non-tender, non-distended, normal bowel sounds - Integumentary Integumentary: Present: warm, dry - Psychiatric Psychiatric: cooperative - Neurologic Neurologic: CNII-XII intact, no focal deficits, moves all extremities - Allied Health Allied health notes reviewed: nursing, RT Results - Labs CBC & Chem 7: 08/21/21 04:58 08/21/21 04:58 Labs: Laboratory Last Values WBC 10.0 K/mm3 (4.5-11.0) 08/21/21 04:58 RBC 3.64 M/mm3 (3.65-5.03) L 08/21/21 04:58 Hgb 11.8 gm/dl (10.1-14.3) 08/21/21 04:58 Hct 36.2 % (30.3-42.9) 08/21/21 04:58 MCV 100 fl (79-97) H 08/21/21 04:58 MCH 32 pg (28-32) 08/21/21 04:58 MCHC 33 % (30-34) 08/21/21 04:58 RDW 16.4 % (13.2-15.2) H 08/21/21 04:58 Plt Count 215 K/mm3 (140-440) 08/21/21 04:58 Lymph # (Auto) [employer] 08/19/21 02:24 Add Manual Diff Complete 08/20/21 04:25 Total Counted 100 08/20/21 04:25 Seg Neuts % (Manual) 83.0 % (40.0-70.0) H 08/20/21 04:25 Band Neutrophils % 0 % 08/20/21 04:25 Lymphocytes % (Manual) 14.0 % (13.4-35.0) 08/20/21 04:25 Reactive Lymphs % (Man) 0 % 08/20/21 04:25 Monocytes % (Manual) 3.0 % (0.0-7.3) 08/20/21 04:25 Eosinophils % (Manual) 0 % (0.0-4.3) 08/20/21 04:25 Basophils % (Manual) 0 % (0.0-1.8) 08/20/21 04:25 Metamyelocytes % 0 % 08/20/21 04:25 Myelocytes % 0 % 08/20/21 04:25 Promyelocytes % 0 % 08/20/21 04:25 Blast Cells % 0 % 08/20/21 04:25 Nucleated RBC % Not Reportable 08/20/21 04:25 Seg Neutrophils # Man 7.5 K/mm3 (1.8-7.7) 08/20/21 04:25 Band Neutrophils # 0.0 K/mm3 08/20/21 04:25 Lymphocytes # (Manual) 1.3 K/mm3 (1.2-5.4) 08/20/21 04:25 Abs React Lymphs (Man) 0.0 K/mm3 08/20/21 04:25 Monocytes # (Manual) 0.3 K/mm3 (0.0-0.8) 08/20/21 04:25 Eosinophils # (Manual) 0.0 K/mm3 (0.0-0.4) 08/20/21 04:25 Basophils # (Manual) 0.0 K/mm3 (0.0-0.1) 08/20/21 04:25 Metamyelocytes # 0.0 K/mm3 08/20/21 04:25 Myelocytes # 0.0 K/mm3 08/20/21 04:25 Promyelocytes # 0.0 K/mm3 08/20/21 04:25 Blast Cells # 0.0 K/mm3 08/20/21 04:25 WBC Morphology Not Reportable 08/20/21 04:25 Hypersegmented Neuts Not Reportable 08/20/21 04:25 Hyposegmented Neuts Not Reportable 08/20/21 04:25 Hypogranular Neuts Not Reportable 08/20/21 04:25 Smudge Cells Not Reportable 08/20/21 04:25 Toxic Granulation Not Reportable 08/20/21 04:25 Toxic Vacuolation Not Reportable 08/20/21 04:25 Dohle Bodies Not Reportable 08/20/21 04:25 Pelger-Huet Anomaly Not Reportable 08/20/21 04:25 Erik Rods Not Reportable 08/20/21 04:25 Platelet Estimate Consistent w auto 08/20/21 04:25 Clumped Platelets Not Reportable 08/20/21 04:25 Plt Clumps, EDTA Not Reportable 08/20/21 04:25 Large Platelets Rare 08/20/21 04:25 Giant Platelets Not Reportable 08/20/21 04:25 Platelet Satelliting Not Reportable 08/20/21 04:25 Plt Morphology Comment Not Reportable 08/20/21 04:25 RBC Morphology Not Reportable 08/20/21 04:25 Dimorphic RBCs Not Reportable 08/20/21 04:25 Polychromasia Not Reportable 08/20/21 04:25 Hypochromasia Not Reportable 08/20/21 04:25 Poikilocytosis Rare 08/20/21 04:25 Anisocytosis Rare 08/20/21 04:25 Microcytosis Not Reportable 08/20/21 04:25 Macrocytosis Not Reportable 08/20/21 04:25 Spherocytes Not Reportable 08/20/21 04:25 Pappenheimer Bodies Not Reportable 08/20/21 04:25 Sickle Cells Not Reportable 08/20/21 04:25 Target Cells Not Reportable 08/20/21 04:25 Tear Drop Cells Not Reportable 08/20/21 04:25 Ovalocytes Rare 08/20/21 04:25 Helmet Cells Not Reportable 08/20/21 04:25 Rai-Leach Bodies Not Reportable 08/20/21 04:25 [place] Rings Not Reportable 08/20/21 04:25 [place] Cells Not Reportable 08/20/21 04:25 Bite Cells Not Reportable 08/20/21 04:25 Crenated Cell Not Reportable 08/20/21 04:25 Elliptocytes Not Reportable 08/20/21 04:25 Acanthocytes (Spur) Not Reportable 08/20/21 04:25 Rouleaux Not Reportable 08/20/21 04:25 Hemoglobin C Crystals Not Reportable 08/20/21 04:25 Schistocytes Not Reportable 08/20/21 04:25 Malaria parasites Not Reportable 08/20/21 04:25 Marco Bodies Not Reportable 08/20/21 04:25 Hem Pathologist Commnt No 08/20/21 04:25 PT 12.8 Sec. (12.2-14.9) 08/19/21 02:24 INR 0.87 (0.87-1.13) 08/19/21 02:24 APTT 20.0 Sec. (24.2-36.6) L 08/19/21 02:24 ABG pH 7.401 pH Units (7.350-7.450) 08/21/21 04:59 ABG pCO2 35.7 mm Hg 08/21/21 04:59 ABG pO2 86.7 mm Hg (80.0-90.0) 08/21/21 04:59 ABG HCO3 21.6 mmol/L (20.0-26.0) 08/21/21 04:59 ABG O2 Saturation 97.0 % (95.0-99.0) 08/21/21 04:59 ABG O2 Content 15.6 (0.0-44) 08/21/21 04:59 ABG Base Excess -2.6 mmol/L (-2.0-3.0) L 08/21/21 04:59 ABG Hemoglobin 11.6 gm/dl (12.0-16.0) L 08/21/21 04:59 ABG Carboxyhemoglobin 1.0 % (0.0-5.0) 08/21/21 04:59 ABG Methemoglobin 0.6 % (0.0-1.5) 08/21/21 04:59 Oxyhemoglobin 95.5 % (95.0-99.0) 08/21/21 04:59 FiO2 30 % 08/21/21 04:59 Sodium 143 mmol/L (137-145) 08/21/21 04:58 Potassium 3.5 mmol/L (3.6-5.0) L 08/21/21 04:58 Chloride 109.5 mmol/L (98-107) H 08/21/21 04:58 Carbon Dioxide 19 mmol/L (22-30) L 08/21/21 04:58 Anion Gap 18 mmol/L 08/21/21 04:58 BUN 13 mg/dL (7-17) 08/21/21 04:58 Creatinine 0.7 mg/dL (0.6-1.2) 08/21/21 04:58 Estimated GFR > 60 ml/min 08/21/21 04:58 BUN/Creatinine Ratio 19 % 08/21/21 04:58 Glucose 159 mg/dL (65-100) H 08/21/21 04:58 POC Glucose 143 mg/dL (70-105) H 08/21/21 05:22 Calcium 8.3 mg/dL (8.4-10.2) L 08/21/21 04:58 Total Bilirubin 0.40 mg/dL (0.1-1.2) 08/20/21 04:25 AST 23 units/L (5-40) 08/20/21 04:25 ALT 13 units/L (7-56) 08/20/21 04:25 Alkaline Phosphatase 94 units/L (35-129) 08/20/21 04:25 Total Protein 7.3 g/dL (6.3-8.2) 08/20/21 04:25 Albumin 4.0 g/dL (3.9-5) 08/20/21 04:25 Albumin/Globulin Ratio 1.2 % 08/20/21 04:25 Esquivel/IV: Voiding Method Indwelling Catheter Active Medications - Current Medications Current Medications: Generic Name Dose Route Start Last Admin Trade Name Freq PRN Reason Stop Dose Admin Acetaminophen 650 mg 08/19/21 06:00 Acetaminophen 325 Mg Tab FEEDTUBE Q4H PRN Pain MILD(1-3)/Fever >100.5/SAEED Albuterol 2.5 mg 08/19/21 04:50 Albuterol 2.5 Mg/3 Ml Nebu IH Q3HRT PRN Shortness Of Breath Albuterol/Ipratropium 1 ampul 08/19/21 08:00 08/21/21 08:49 Ipratropium/Albuterol Sulfate 3 Ml Ampul.Neb IH 1 ampul Q6HRT WARD Administration Alprazolam 0.25 mg 08/19/21 06:00 Alprazolam 0.25 Mg Tab FEEDTUBE BID PRN Anxiety Buspirone HCl 10 mg 08/19/21 10:00 08/21/21 09:49 Buspirone 10 Mg Tab FEEDTUBE 10 mg BID WARD Administration Dextrose 50 ml 08/20/21 10:00 Dextrose 50% In Water (25gm) 50 Ml Syringe IV Q30MIN PRN Hypoglycemia Protocol Diphenhydramine HCl 25 mg 08/19/21 12:00 08/21/21 11:22 Diphenhydramine 50 Mg/Ml Vial IV 25 mg Q6H WARD Administration Famotidine 20 mg 08/19/21 10:00 08/21/21 09:49 Famotidine 20 Mg/2 Ml Inj IV 20 mg BID WARD Administration Folic Acid 1 mg 08/19/21 10:00 08/21/21 09:49 Folic Acid 1 Mg Tab FEEDTUBE 1 mg QDAY WARD Administration Heparin Sodium (Porcine) 5,000 unit 08/19/21 10:00 08/21/21 09:49 Heparin 5,000 Unit/1 Ml Vial SUB-Q 5,000 unit Q12HR WARD Administration Hydralazine HCl 10 mg 08/19/21 05:03 Hydralazine 20 Mg/1 Ml Inj IV Q6H PRN SBP >/=160; DBP >/=100 MIDAZOLAM/NS Drip 100mg/100ml 100 mg in 100 mls @ 1 mls/hr 08/19/21 04:00 08/21/21 05:39 Midazolam/Ns Drip 100mg/100ml IV 4 mg/hr TITR WARD 4 mls/hr Administration Protocol 1 MG/HR Propofol 1,000 mg in 100 mls @ 2.722 mls/hr 08/19/21 12:00 08/21/21 12:08 Diprivan 10 Mg/Ml IV 40 mcg/kg/min TITR WARD 21.772 mls/hr Administration Protocol 5 MCG/KG/MIN Insulin Human Regular 0 units 08/20/21 12:00 08/21/21 05:38 Insulin Regular, Human 100 Units/1 Ml SUB-Q Not Given Q6H [facility] Protocol Levothyroxine Sodium 150 mcg 08/19/21 06:00 08/21/21 05:39 Levothyroxine 75 Mcg Tab FEEDTUBE 150 mcg DAILY@0600 WARD Administration Methylprednisolone Sodium Succinate 125 mg 08/19/21 08:00 08/21/21 05:38 Methylprednisolone Sod Succinate 125 Mg/2 Ml Inj IV 125 mg Q8HR WARD Administration Ondansetron HCl 4 mg 08/19/21 04:50 Ondansetron 4 Mg/2 Ml Inj IV Q8H PRN Nausea And Vomiting Senna 8.8 mg 08/20/21 22:00 08/20/21 21:58 Sennosides Oral Liqd 8.8 Mg/5 Ml Oral Liqd PO 8.8 mg QHS WARD Administration Sertraline HCl 25 mg 08/19/21 10:00 08/21/21 09:49 Sertraline 25 Mg Tab FEEDTUBE 25 mg QDAY WARD Administration Sodium Chloride 10 ml 08/19/21 10:00 08/21/21 09:50 Sodium Chloride 0.9% 10 Ml Flush Syringe IV 10 ml BID WARD Administration Sodium Chloride 10 ml 08/19/21 04:50 Sodium Chloride 0.9% 10 Ml Flush Syringe IV PRN PRN LINE FLUSH Thiamine HCl 100 mg 08/19/21 10:00 08/21/21 09:50 Thiamine 100 Mg Tab FEEDTUBE 100 mg QDAY WARD Administration Nutrition/Malnutrition Assess - Dietary Evaluation Nutrition/Malnutrition Findings: Nutrition Notes Start: 08/19/21 10:13 Freq: Status: Active Protocol: Document 08/20/21 14:58 ABRAHAM (Rec: 08/20/21 15:08 ABRAHAM [email or web address]) Nutrition Notes Initial or Follow up Brief Note Current Diagnosis Hypertension Other Pertinent Diagnosis Brent Angioedema, Myxedema, Hypothyroidsm, Hypokalemia, Psychosis. Current Diet TF-Jevity 1.2 Dieudonne @ 45 ml/hr ( from L 08/19). Height 4 ft 11 in Weight 90.718 kg [place] Body Weight (kg) 43.18 BMI 40.4 Weight change and time frame No body weight change reported in 1 day. Weight Status Morbidly Obese Subjective/Other Information RD consult for risk of malnutrition assessment, and routine F/U on TF tolerance. TF continues as prescribed, well tolerated. Pt is on Mechanical Ventilation, O2 saturation @ 100%, according to Physical Assessment History notes. Pt shows no signs of concern for risk of malnutrition at the time, according to Physical Assessment History notes. Percent of energy/protein needs met: Prescribed TF-Jevity 1.2 Dieudonne @ 45 ml/hr provides for energy/ protein needs (1,300 Kcal/60 g ) during LOS, 102% Kcal; 90% AA. #1 Nutrition Diagnosis Inadequate oral intake Diagnosis Progress(for reassessment Continues documentation) Is patient on ventilator? Yes Is Patient Ambulatory and/or Out of Bed No REE-([facility]-confined to bed) 1575.480 Kcal/Kg value to use for calculation 14 Approximate Energy Requirements Using 1270 kcal/Kg Calculation Used for Recommendations Kcal/kg Additional Notes Protein: 1-1.2 g/Kg AdjBW; 67- 80 g/day. Fluids: 1 ml/Kcal, or as per MD. Nutrition Intervention Nutrition Support: Continue Jevity 1.2 Dieudonne @ 45 ml/hr. Flush: 70 ml water Q 4 hr, or as per MD. Kcal 1,300 Protein (gm) 60 Carbohydrates (gm) 184 Fat (gm) 43 Fluid (mL) 874 Fiber (gm) 20 % RDI: 102% Kcal; 90% AA. Goal #1 Provide at least 75% of energy /protein needs through Enteral Feeding during LOS. Goal #2 Maintain body weight within +/ -3% of admission body weight during LOS. Follow-Up By: 08/27/21 Additional Comments Continue monitoring TF tolerance and BM. <CATRINA MONDRAGON - Last Filed: 08/22/21 06:59> Assessment and Plan Assessment and plan: I saw and evaluated the patient. I agree with the findings and the plan of care as documented in the Nurse Practitioner's~note, with the following corrections and additions. Hospitalist Physical - Constitutional Vitals: Temp Pulse Resp BP Pulse Ox 97.8 F 85 17 144/81 100 08/22/21 04:00 08/22/21 06:01 08/22/21 06:01 08/22/21 06:01 08/22/21 06:01 Results - Labs CBC & Chem 7: 08/22/21 03:54 08/22/21 03:54 Labs: Laboratory Last Values WBC 9.0 K/mm3 (4.5-11.0) 08/22/21 03:54 RBC 3.53 M/mm3 (3.65-5.03) L 08/22/21 03:54 Hgb 11.6 gm/dl (10.1-14.3) 08/22/21 03:54 Hct 35.2 % (30.3-42.9) 08/22/21 03:54 MCV 100 fl (79-97) H 08/22/21 03:54 MCH 33 pg (28-32) H 08/22/21 03:54 MCHC 33 % (30-34) 08/22/21 03:54 RDW 16.7 % (13.2-15.2) H 08/22/21 03:54 Plt Count 233 K/mm3 (140-440) 08/22/21 03:54 Lymph # (Auto) [employer] 08/19/21 02:24 Add Manual Diff Complete 08/20/21 04:25 Total Counted 100 08/20/21 04:25 Seg Neuts % (Manual) 83.0 % (40.0-70.0) H 08/20/21 04:25 Band Neutrophils % 0 % 08/20/21 04:25 Lymphocytes % (Manual) 14.0 % (13.4-35.0) 08/20/21 04:25 Reactive Lymphs % (Man) 0 % 08/20/21 04:25 Monocytes % (Manual) 3.0 % (0.0-7.3) 08/20/21 04:25 Eosinophils % (Manual) 0 % (0.0-4.3) 08/20/21 04:25 Basophils % (Manual) 0 % (0.0-1.8) 08/20/21 04:25 Metamyelocytes % 0 % 08/20/21 04:25 Myelocytes % 0 % 08/20/21 04:25 Promyelocytes % 0 % 08/20/21 04:25 Blast Cells % 0 % 08/20/21 04:25 Nucleated RBC % Not Reportable 08/20/21 04:25 Seg Neutrophils # Man 7.5 K/mm3 (1.8-7.7) 08/20/21 04:25 Band Neutrophils # 0.0 K/mm3 08/20/21 04:25 Lymphocytes # (Manual) 1.3 K/mm3 (1.2-5.4) 08/20/21 04:25 Abs React Lymphs (Man) 0.0 K/mm3 08/20/21 04:25 Monocytes # (Manual) 0.3 K/mm3 (0.0-0.8) 08/20/21 04:25 Eosinophils # (Manual) 0.0 K/mm3 (0.0-0.4) 08/20/21 04:25 Basophils # (Manual) 0.0 K/mm3 (0.0-0.1) 08/20/21 04:25 Metamyelocytes # 0.0 K/mm3 08/20/21 04:25 Myelocytes # 0.0 K/mm3 08/20/21 04:25 Promyelocytes # 0.0 K/mm3 08/20/21 04:25 Blast Cells # 0.0 K/mm3 08/20/21 04:25 WBC Morphology Not Reportable 08/20/21 04:25 Hypersegmented Neuts Not Reportable 08/20/21 04:25 Hyposegmented Neuts Not Reportable 08/20/21 04:25 Hypogranular Neuts Not Reportable 08/20/21 04:25 Smudge Cells Not Reportable 08/20/21 04:25 Toxic Granulation Not Reportable 08/20/21 04:25 Toxic Vacuolation Not Reportable 08/20/21 04:25 Dohle Bodies Not Reportable 08/20/21 04:25 Pelger-Huet Anomaly Not Reportable 08/20/21 04:25 Erik Rods Not Reportable 08/20/21 04:25 Platelet Estimate Consistent w auto 08/20/21 04:25 Clumped Platelets Not Reportable 08/20/21 04:25 Plt Clumps, EDTA Not Reportable 08/20/21 04:25 Large Platelets Rare 08/20/21 04:25 Giant Platelets Not Reportable 08/20/21 04:25 Platelet Satelliting Not Reportable 08/20/21 04:25 Plt Morphology Comment Not Reportable 08/20/21 04:25 RBC Morphology Not Reportable 08/20/21 04:25 Dimorphic RBCs Not Reportable 08/20/21 04:25 Polychromasia Not Reportable 08/20/21 04:25 Hypochromasia Not Reportable 08/20/21 04:25 Poikilocytosis Rare 08/20/21 04:25 Anisocytosis Rare 08/20/21 04:25 Microcytosis Not Reportable 08/20/21 04:25 Macrocytosis Not Reportable 08/20/21 04:25 Spherocytes Not Reportable 08/20/21 04:25 Pappenheimer Bodies Not Reportable 08/20/21 04:25 Sickle Cells Not Reportable 08/20/21 04:25 Target Cells Not Reportable 08/20/21 04:25 Tear Drop Cells Not Reportable 08/20/21 04:25 Ovalocytes Rare 08/20/21 04:25 Helmet Cells Not Reportable 08/20/21 04:25 Rai-Leach Bodies Not Reportable 08/20/21 04:25 [place] Rings Not Reportable 08/20/21 04:25 [place] Cells Not Reportable 08/20/21 04:25 Bite Cells Not Reportable 08/20/21 04:25 Crenated Cell Not Reportable 08/20/21 04:25 Elliptocytes Not Reportable 08/20/21 04:25 Acanthocytes (Spur) Not Reportable 08/20/21 04:25 Rouleaux Not Reportable 08/20/21 04:25 Hemoglobin C Crystals Not Reportable 08/20/21 04:25 Schistocytes Not Reportable 08/20/21 04:25 Malaria parasites Not Reportable 08/20/21 04:25 Marco Bodies Not Reportable 08/20/21 04:25 Hem Pathologist Commnt No 08/20/21 04:25 PT 12.8 Sec. (12.2-14.9) 08/19/21 02:24 INR 0.87 (0.87-1.13) 08/19/21 02:24 APTT 20.0 Sec. (24.2-36.6) L 08/19/21 02:24 ABG pH 7.454 pH Units (7.350-7.450) H 08/22/21 04:40 ABG pCO2 36.7 mm Hg 08/22/21 04:40 ABG pO2 109.8 mm Hg (80.0-90.0) H 08/22/21 04:40 ABG HCO3 25.1 mmol/L (20.0-26.0) 08/22/21 04:40 ABG O2 Saturation 98.5 % (95.0-99.0) 08/22/21 04:40 ABG O2 Content 20.9 (0.0-44) 08/22/21 04:40 ABG Base Excess 1.5 mmol/L (-2.0-3.0) 08/22/21 04:40 ABG Hemoglobin 12.1 gm/dl (12.0-16.0) 08/22/21 04:40 ABG Carboxyhemoglobin 0.4 % (0.0-5.0) 08/22/21 04:40 ABG Methemoglobin 0.3 % (0.0-1.5) 08/22/21 04:40 Oxyhemoglobin 97.8 % (95.0-99.0) 08/22/21 04:40 FiO2 30 % 08/22/21 04:40 Sodium 145 mmol/L (137-145) 08/22/21 03:54 Potassium 4.2 mmol/L (3.6-5.0) 08/22/21 03:54 Chloride 107.5 mmol/L (98-107) H 08/22/21 03:54 Carbon Dioxide 23 mmol/L (22-30) 08/22/21 03:54 Anion Gap 19 mmol/L 08/22/21 03:54 BUN 12 mg/dL (7-17) 08/22/21 03:54 Creatinine 0.7 mg/dL (0.6-1.2) 08/22/21 03:54 Estimated GFR > 60 ml/min 08/22/21 03:54 BUN/Creatinine Ratio 17 % 08/22/21 03:54 Glucose 123 mg/dL (65-100) H 08/22/21 03:54 POC Glucose 132 mg/dL (70-105) H 08/22/21 00:03 Calcium 8.7 mg/dL (8.4-10.2) 08/22/21 03:54 Phosphorus 2.90 mg/dL (2.5-4.5) 08/22/21 03:54 Magnesium 1.90 mg/dL (1.7-2.3) 08/22/21 03:54 Total Bilirubin 0.40 mg/dL (0.1-1.2) 08/20/21 04:25 AST 23 units/L (5-40) 08/20/21 04:25 ALT 13 units/L (7-56) 08/20/21 04:25 Alkaline Phosphatase 94 units/L (35-129) 08/20/21 04:25 Total Protein 7.3 g/dL (6.3-8.2) 08/20/21 04:25 Albumin 4.0 g/dL (3.9-5) 08/20/21 04:25 Albumin/Globulin Ratio 1.2 % 08/20/21 04:25 Triglycerides 109 mg/dL (2-149) 08/22/21 03:54 Blood Type A POSITIVE 08/21/21 15:10 Esquivel/IV: Voiding Method Indwelling Catheter Active Medications - Current Medications Current Medications: Generic Name Dose Route Start Last Admin Trade Name Freq PRN Reason Stop Dose Admin Acetaminophen 650 mg 08/19/21 06:00 Acetaminophen 325 Mg Tab FEEDTUBE Q4H PRN Pain MILD(1-3)/Fever >100.5/SAEED Albuterol 2.5 mg 08/19/21 04:50 Albuterol 2.5 Mg/3 Ml Nebu IH Q3HRT PRN Shortness Of Breath Albuterol/Ipratropium 1 ampul 05/05/22 08:00 08/22/21 01:05 Ipratropium/Albuterol Sulfate 3 Ml Ampul.Neb IH 1 ampul Q6HRT WARD Administration Alprazolam 0.25 mg 08/19/21 06:00 Alprazolam 0.25 Mg Tab FEEDTUBE BID PRN Anxiety Buspirone HCl 10 mg 08/19/21 10:00 08/21/21 21:42 Buspirone 10 Mg Tab FEEDTUBE 10 mg BID WARD Administration Dextrose 50 ml 08/20/21 10:00 Dextrose 50% In Water (25gm) 50 Ml Syringe IV Q30MIN PRN Hypoglycemia Protocol Diphenhydramine HCl 25 mg 08/19/21 12:00 08/22/21 05:12 Diphenhydramine 50 Mg/Ml Vial IV 25 mg Q6H WARD Administration Famotidine 20 mg 08/19/21 10:00 08/21/21 21:42 Famotidine 20 Mg/2 Ml Inj IV 20 mg BID WARD Administration Folic Acid 1 mg 08/19/21 10:00 08/21/21 09:49 Folic Acid 1 Mg Tab FEEDTUBE 1 mg QDAY WARD Administration Heparin Sodium (Porcine) 5,000 unit 08/19/21 10:00 08/21/21 21:42 Heparin 5,000 Unit/1 Ml Vial SUB-Q 5,000 unit Q12HR WARD Administration Hydralazine HCl 10 mg 08/19/21 05:03 Hydralazine 20 Mg/1 Ml Inj IV Q6H PRN SBP >/=160; DBP >/=100 MIDAZOLAM/NS Drip 100mg/100ml 100 mg in 100 mls @ 1 mls/hr 08/19/21 04:00 08/21/21 22:06 Midazolam/Ns Drip 100mg/100ml IV 4 mg/hr TITR WARD 4 mls/hr Administration Protocol 1 MG/HR Propofol 1,000 mg in 100 mls @ 2.722 mls/hr 08/19/21 12:00 08/22/21 05:11 Diprivan 10 Mg/Ml IV 30 mcg/kg/min TITR WARD 16.329 mls/hr Administration Protocol 5 MCG/KG/MIN Insulin Human Regular 0 units 08/20/21 12:00 08/22/21 06:18 Insulin Regular, Human 100 Units/1 Ml SUB-Q Not Given Q6H [facility] Protocol Levothyroxine Sodium 150 mcg 08/19/21 06:00 08/22/21 05:11 Levothyroxine 75 Mcg Tab FEEDTUBE 150 mcg DAILY@0600 WARD Administration Methylprednisolone Sodium Succinate 125 mg 08/19/21 08:00 08/22/21 05:12 Methylprednisolone Sod Succinate 125 Mg/2 Ml Inj IV 125 mg Q8HR WARD Administration Ondansetron HCl 4 mg 08/19/21 04:50 Ondansetron 4 Mg/2 Ml Inj IV Q8H PRN Nausea And Vomiting Senna 8.8 mg 08/20/21 22:00 08/21/21 21:42 Sennosides Oral Liqd 8.8 Mg/5 Ml Oral Liqd PO 8.8 mg QHS WARD Administration Sertraline HCl 25 mg 08/19/21 10:00 08/21/21 09:49 Sertraline 25 Mg Tab FEEDTUBE 25 mg QDAY WARD Administration Sodium Chloride 10 ml 08/19/21 10:00 08/21/21 21:42 Sodium Chloride 0.9% 10 Ml Flush Syringe IV 10 ml BID WARD Administration Sodium Chloride 10 ml 08/19/21 04:50 Sodium Chloride 0.9% 10 Ml Flush Syringe IV PRN PRN LINE FLUSH Thiamine HCl 100 mg 08/19/21 10:00 08/21/21 09:50 Thiamine 100 Mg Tab FEEDTUBE 100 mg QDAY WARD Administration Nutrition/Malnutrition Assess - Dietary Evaluation Nutrition/Malnutrition Findings: Nutrition Notes Start: 08/19/21 10:13 Freq: Status: Active Protocol: Document 08/20/21 14:58 ABRAHAM (Rec: 08/20/21 15:08 ABRAHAM [id number]) Nutrition Notes Initial or Follow up Brief Note Current Diagnosis Hypertension Other Pertinent Diagnosis Brent Angioedema, Myxedema, Hypothyroidsm, Hypokalemia, Psychosis. Current Diet TF-Jevity 1.2 Dieudonne @ 45 ml/hr ( from L 08/19). Height 4 ft 11 in Weight 90.718 kg [place] Body Weight (kg) 43.18 BMI 40.4 Weight change and time frame No body weight change reported in 1 day. Weight Status Morbidly Obese Subjective/Other Information RD consult for risk of malnutrition assessment, and routine F/U on TF tolerance. TF continues as prescribed, well tolerated. Pt is on Mechanical Ventilation, O2 saturation @ 100%, according to Physical Assessment History notes. Pt shows no signs of concern for risk of malnutrition at the time, according to Physical Assessment History notes. Percent of energy/protein needs met: Prescribed TF-Jevity 1.2 Dieudonne @ 45 ml/hr provides for energy/ protein needs (1,300 Kcal/60 g ) during LOS, 102% Kcal; 90% AA. #1 Nutrition Diagnosis Inadequate oral intake Diagnosis Progress(for reassessment Continues documentation) Is patient on ventilator? Yes Is Patient Ambulatory and/or Out of Bed No REE-([place]-[facility] Jeor-confined to bed) 1575.480 Kcal/Kg value to use for calculation 14 Approximate Energy Requirements Using 1270 kcal/Kg Calculation Used for Recommendations Kcal/kg Additional Notes Protein: 1-1.2 g/Kg AdjBW; 67- 80 g/day. Fluids: 1 ml/Kcal, or as per MD. Nutrition Intervention Nutrition Support: Continue Jevity 1.2 [place]ud[place] @ 45 ml/hr. Flush: 70 ml water Q 4 hr, or as per MD. Kcal 1,300 Protein (gm) 60 Carbohydrates (gm) 184 Fat (gm) 43 Fluid (mL) 874 Fiber (gm) 20 % RDI: 102% Kcal; 90% AA. Goal #1 Provide at least 75% of energy /protein needs through Enteral Feeding during LOS. Goal #2 Maintain body weight within +/ -3% of admission body weight during LOS. Follow-Up By: 08/27/21 Additional Comments Continue monitoring TF tolerance and BM.
--- NOTE | 2021-08-21 12:47 | Progress Note ---
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 Continue with IV steroids 2. Continue scheduled benadryl and pepcid 3. Trial of FFP 4. Wean FiO2 for sats > 88% 5. Keep intubated on mechanical ventilator. No significant air leak, keep intubated. Will reassess tomorrow CCT 31 minutes Subjective Date of service: 08/21/21 Interval history: Remains sedated on mechanical ventilator. Still with significant tongue swelling. Remain intubated. Leak test showed no significant air leak Objective Vital Signs - 12hr 08/21/21 08/21/21 08/21/21 01:00 01:15 01:30 Temperature Pulse Rate 76 74 71 Pulse Rate [ Bilateral] Pulse Rate [ From Monitor] Respiratory 14 14 14 Rate Respiratory Rate [Bilateral ] Blood Pressure 106/67 106/67 98/63 O2 Sat by Pulse 100 100 100 Oximetry 08/21/21 08/21/21 08/21/21 01:45 01:58 02:00 Temperature Pulse Rate 68 68 Pulse Rate [ 70 Bilateral] Pulse Rate [ From Monitor] Respiratory 14 14 Rate Respiratory 14 Rate [Bilateral ] Blood Pressure 98/63 95/63 O2 Sat by Pulse 100 100 Oximetry 08/21/21 08/21/21 08/21/21 02:15 02:30 02:45 Temperature Pulse Rate 69 68 72 Pulse Rate [ Bilateral] Pulse Rate [ From Monitor] Respiratory 14 14 14 Rate Respiratory Rate [Bilateral ] Blood Pressure 95/63 104/67 104/67 O2 Sat by Pulse 100 100 100 Oximetry 08/21/21 08/21/21 08/21/21 03:00 03:15 03:30 Temperature Pulse Rate 71 71 72 Pulse Rate [ Bilateral] Pulse Rate [ From Monitor] Respiratory 14 14 15 Rate Respiratory Rate [Bilateral ] Blood Pressure 102/65 102/65 104/68 O2 Sat by Pulse 100 100 100 Oximetry 08/21/21 08/21/21 08/21/21 03:45 03:56 04:00 Temperature 97.4 F L 97.4 F L Pulse Rate 70 73 Pulse Rate [ Bilateral] Pulse Rate [ 67 From Monitor] Respiratory 14 14 Rate Respiratory Rate [Bilateral ] Blood Pressure 104/68 111/69 O2 Sat by Pulse 100 100 Oximetry 08/21/21 08/21/21 08/21/21 04:15 04:23 04:30 Temperature Pulse Rate 91 H 89 89 Pulse Rate [ Bilateral] Pulse Rate [ From Monitor] Respiratory 18 20 Rate Respiratory Rate [Bilateral ] Blood Pressure 111/69 111/69 115/79 O2 Sat by Pulse 98 100 100 Oximetry 08/21/21 08/21/21 08/21/21 04:45 05:01 05:15 Temperature Pulse Rate 85 88 81 Pulse Rate [ Bilateral] Pulse Rate [ From Monitor] Respiratory 19 20 17 Rate Respiratory Rate [Bilateral ] Blood Pressure 115/79 115/79 134/78 O2 Sat by Pulse 100 100 100 Oximetry 08/21/21 08/21/21 08/21/21 05:30 05:45 06:00 Temperature Pulse Rate 85 80 74 Pulse Rate [ Bilateral] Pulse Rate [ From Monitor] Respiratory 23 17 15 Rate Respiratory Rate [Bilateral ] Blood Pressure 124/77 124/77 109/67 O2 Sat by Pulse 100 100 100 Oximetry 08/21/21 08/21/21 08/21/21 06:15 06:30 06:45 Temperature Pulse Rate 73 82 91 H Pulse Rate [ Bilateral] Pulse Rate [ From Monitor] Respiratory 14 17 19 Rate Respiratory Rate [Bilateral ] Blood Pressure 109/67 99/65 99/65 O2 Sat by Pulse 100 100 100 Oximetry 08/21/21 08/21/21 08/21/21 07:01 07:15 07:23 Temperature 97.5 F L Pulse Rate 93 H 84 Pulse Rate [ Bilateral] Pulse Rate [ From Monitor] Respiratory 24 17 Rate Respiratory Rate [Bilateral ] Blood Pressure 130/76 130/76 O2 Sat by Pulse 100 100 Oximetry 08/21/21 08/21/21 08/21/21 07:30 07:45 08:00 Temperature Pulse Rate 76 81 74 Pulse Rate [ Bilateral] Pulse Rate [ 67 From Monitor] Respiratory 14 19 14 Rate Respiratory Rate [Bilateral ] Blood Pressure 122/72 122/72 102/64 O2 Sat by Pulse 100 100 100 Oximetry 08/21/21 08/21/21 08/21/21 08:15 08:31 08:45 Temperature Pulse Rate 71 67 67 Pulse Rate [ Bilateral] Pulse Rate [ From Monitor] Respiratory 14 14 14 Rate Respiratory Rate [Bilateral ] Blood Pressure 102/64 89/55 89/55 O2 Sat by Pulse 100 100 100 Oximetry 08/21/21 08/21/21 08/21/21 08:48 08:50 09:00 Temperature Pulse Rate 68 66 Pulse Rate [ 65 Bilateral] Pulse Rate [ From Monitor] Respiratory 14 Rate Respiratory 14 Rate [Bilateral ] Blood Pressure 89/55 94/58 O2 Sat by Pulse 100 100 Oximetry 08/21/21 08/21/21 08/21/21 09:15 09:30 09:45 Temperature Pulse Rate 69 68 69 Pulse Rate [ Bilateral] Pulse Rate [ From Monitor] Respiratory 14 14 14 Rate Respiratory Rate [Bilateral ] Blood Pressure 94/58 95/57 95/57 O2 Sat by Pulse 100 99 100 Oximetry 08/21/21 08/21/21 08/21/21 10:01 10:15 10:30 Temperature Pulse Rate 92 H 83 85 Pulse Rate [ Bilateral] Pulse Rate [ From Monitor] Respiratory 26 H 18 16 Rate Respiratory Rate [Bilateral ] Blood Pressure 116/79 116/79 130/85 O2 Sat by Pulse 100 100 100 Oximetry 08/21/21 08/21/21 10:45 11:38 Temperature 98.1 F Pulse Rate 82 Pulse Rate [ Bilateral] Pulse Rate [ From Monitor] Respiratory 16 Rate Respiratory Rate [Bilateral ] Blood Pressure 130/85 O2 Sat by Pulse 100 Oximetry Constitutional: no acute distress, other (Sedated) ENT: oropharynx moist, other (Orally intubated significant swelling of the tongue with protrusion) Neck: supple, no lymphadenopathy Effort: other (Supported on ventilator) Ascultation: Bilateral: clear Cardiovascular: regular rate and rhythm Gastrointestinal: normoactive bowel sounds, soft, non-tender, other (Obese) Extremities: no cyanosis, no edema, pink and warm Neurologic: other (Sedated) Psychiatric: other (Sedated) CBC and BMP: 08/21/21 04:58 08/21/21 04:58 ABG, PT/INR, D-dimer: ABG ABG pH 7.401 pH Units (7.350-7.450) 08/21/21 04:59 ABG pCO2 35.7 mm Hg 08/21/21 04:59 ABG pO2 86.7 mm Hg (80.0-90.0) 08/21/21 04:59 ABG O2 Saturation 97.0 % (95.0-99.0) 08/21/21 04:59 PT/INR, D-dimer PT 12.8 Sec. (12.2-14.9) 08/19/21 02:24 INR 0.87 (0.87-1.13) 08/19/21 02:24 Abnormal lab findings: Abnormal Labs 08/19/21 08/19/21 08/19/21 02:24 02:24 02:24 WBC 13.9 H RBC MCV 98 H MCH 33 H RDW 15.7 H Seg Neuts % (Manual) Lymphocytes % (Manual) 52.0 H Lymphocytes # (Manual) 7.2 H APTT 20.0 L ABG pH ABG pO2 ABG O2 Saturation ABG Base Excess ABG Hemoglobin Potassium 3.3 L Chloride Carbon Dioxide 20 L Glucose 143 H POC Glucose Calcium Total Protein 8.3 H 08/19/21 08/19/21 08/19/21 06:15 10:20 11:10 WBC RBC MCV MCH RDW Seg Neuts % (Manual) Lymphocytes % (Manual) Lymphocytes # (Manual) APTT ABG pH 7.465 H 7.503 H ABG pO2 177.7 H 90.5 H ABG O2 Saturation 99.2 H ABG Base Excess ABG Hemoglobin Potassium Chloride Carbon Dioxide Glucose POC Glucose 171 H Calcium Total Protein 08/19/21 08/20/21 08/20/21 16:33 00:03 04:25 WBC RBC MCV 98 H MCH 33 H RDW 15.9 H Seg Neuts % (Manual) 83.0 H Lymphocytes % (Manual) Lymphocytes # (Manual) APTT ABG pH ABG pO2 ABG O2 Saturation ABG Base Excess ABG Hemoglobin Potassium Chloride Carbon Dioxide Glucose POC Glucose 179 H 133 H Calcium Total Protein 08/20/21 08/20/21 08/20/21 04:25 04:30 05:39 WBC RBC MCV MCH RDW Seg Neuts % (Manual) Lymphocytes % (Manual) Lymphocytes # (Manual) APTT ABG pH ABG pO2 95.5 H ABG O2 Saturation ABG Base Excess -2.2 L ABG Hemoglobin Potassium Chloride Carbon Dioxide 21 L Glucose 143 H POC Glucose 168 H Calcium 8.2 L Total Protein 08/20/21 08/20/21 08/21/21 12:04 16:38 00:12 WBC RBC MCV MCH RDW Seg Neuts % (Manual) Lymphocytes % (Manual) Lymphocytes # (Manual) APTT ABG pH ABG pO2 ABG O2 Saturation ABG Base Excess ABG Hemoglobin Potassium Chloride Carbon Dioxide Glucose POC Glucose 151 H 135 H 123 H Calcium Total Protein 08/21/21 08/21/21 08/21/21 04:58 04:58 04:59 WBC RBC 3.64 L MCV 100 H MCH RDW 16.4 H Seg Neuts % (Manual) Lymphocytes % (Manual) Lymphocytes # (Manual) APTT ABG pH ABG pO2 ABG O2 Saturation ABG Base Excess -2.6 L ABG Hemoglobin 11.6 L Potassium 3.5 L Chloride 109.5 H Carbon Dioxide 19 L Glucose 159 H POC Glucose Calcium 8.3 L Total Protein 08/21/21 05:22 WBC RBC MCV MCH RDW Seg Neuts % (Manual) Lymphocytes % (Manual) Lymphocytes # (Manual) APTT ABG pH ABG pO2 ABG O2 Saturation ABG Base Excess ABG Hemoglobin Potassium Chloride Carbon Dioxide Glucose POC Glucose 143 H Calcium Total Protein
[2021-08-21] MEDS ORDERED: METOPROLOL TARTRATE 5 MG/5 ML INJ IV ONE (15:00)
[2021-08-21] MEDS: SENNOSIDES ORAL LIQD 8.8 MG/5 ML ORAL LIQD PO SCH (21:42)
[2021-08-22] MEDS: diphenhydrAMINE 50 MG/ML VIAL IV SCH ×5 (00:11→23:56)
[2021-08-22] MEDS: INSULIN REGULAR, HUMAN 100 UNITS/1 ML SUB-Q SCH ×4 (00:11→17:22)
[2021-08-22] MEDS: IPRATROPIUM/ALBUTEROL SULFATE 3 ML AMPUL.NEB IH SCH ×4 (01:05→20:26)
[2021-08-22 04:48] LABS: ABG Base Excess 1.5 mmol/L (-2.0-3.0); ABG HCO3 25.1 mmol/L (20.0-26.0); ABG PCO2 36.7 mm Hg; ABG PH 7.454 pH Units (7.350-7.450); ABG PO2 109.8 mm Hg (80.0-90.0)
[2021-08-22 04:52] LABS: ABG Methemoglobin 0.3 % (0.0-1.5); ABG Oxygen Saturation 98.5 % (95.0-99.0)
[2021-08-22] MEDS: LEVOTHYROXINE 75 MCG TAB FEEDTUBE SCH (05:11)
[2021-08-22] MEDS: methylPREDNISolone Sod Succinate 125 MG/2 ML INJ IV SCH ×3 (05:12→21:37)
[2021-08-22 05:18] LABS: Hematocrit 35.2 % (30.3-42.9); Hemoglobin 11.6 gm/dl (10.1-14.3); Mean Corpuscular HGB Conc 33 % (30-34); Mean Corpuscular Volume 100 fl (79-97); Platelet Count 233 K/mm3 (140-440); Red Blood Count 3.53 M/mm3 (3.65-5.03); Red Cell Distribution Width 16.7 % (13.2-15.2)
[2021-08-22 05:28] LABS: Blood Urea Nitrogen 12 mg/dL (7-17); Calcium 8.7 mg/dL (8.4-10.2); Hemolysis Index 11
[2021-08-22 05:30] LABS: BUN/Creatinine Ratio 17
[2021-08-22] MEDS: MULTIVITAMIN / MINERAL ORAL LIQUID 15 ML FEEDTUBE SCH (09:21)
[2021-08-22] MEDS: THIAMINE 100 MG TAB FEEDTUBE SCH (09:21)
[2021-08-22] MEDS: busPIRone 10 MG TAB FEEDTUBE SCH ×2 (09:21→21:37)
[2021-08-22] MEDS: HEPARIN 5,000 UNIT/1 ML VIAL SUB-Q SCH ×2 (09:21→21:37)
[2021-08-22] MEDS: FAMOTIDINE 20 MG/2 ML INJ IV SCH ×2 (09:21→21:37)
[2021-08-22] MEDS: FOLIC ACID 1 MG TAB FEEDTUBE SCH (09:21)
[2021-08-22] MEDS: SERTRALINE 25 MG TAB FEEDTUBE SCH (09:24)
--- NOTE | 2021-08-22 10:01 | Progress Note ---
<RAQUEL ISAACS - Last Filed: 08/22/21 11:54> Assessment and Plan Assessment and plan: This is a 76-year-old female with hypertension, psychiatric illness and hypothyroidism admitted with angioedema and intubated for airway protection Neuro: h/o depression -Restart home thiamine, multivitamin, Zoloft, BuSpar and as needed Xanax -Sedated with propofol and Versed -RASS goal 0 to -1 -Avoid delirium -Reorientation as needed -Maintain sleep-wake cycle -As needed analgesia Cardiac: h/o htn -Blood pressure monitoring per protocol -Hydralazine as needed -resume home antihypertenisve regimen when available and if needed -NS bolus x 1 Liter on 08/20 Respiratory: Acute hypoxic respiratory failure, angioedema -CCM consulted, appreciate recommendations -Intubated in the emergency department on 08/19 with 7.50 ETT at 24 the lips -A.m. vent settings: Assist-control rate 14, tidal volume 450, PEEP 6, FiO2 30% -See RT notes for titration -CPAP trial per RT -no cuff leak noted today and placed back on AC with sedation restarted -A.m. ABG and CXR noted -VAP bundle -SPO2 monitoring -Benadryl, Pepcid, Solu-Medrol GI: MO -24 hours +51 mL -PPI -NTR consulted for tube feedings -BR: Senokot : NAD -Strict intake and output -Renally dose medications -Avoid nephrotoxic medications -Daily weights -Trend BMP -remove lewis today ID: NAD -f/u blood culture -Monitor WBC and temperature curve Endo: Hyperglycemia, h/o hypothyroidism -continue synthroid -Avoid hypoglycemia -SSI -Accu-Cheks q. 6 Heme: Leukocytosis (resolved) -Trend CBC -Transfuse hemoglobin less than 7 -Monitor for signs of bleeding -SCDs to BLE while in bed -heparin subq The high probability of a clinically significant, sudden or life threatening deterioration of the [resp] system(s) required my full and direct attention, intervention and personal management. The aggregate critical care time was [60] minutes. This time is in addition to time spent performing reported procedures but includes the following: [x] Data Review and interpretation [x] Patient assessment and monitoring of vital signs [x] Documentation [x] Medication orders and management Disposition Plan: icu Total Time Spent with Patient (Minutes): 60 History Interval history: This is a 76-year-old female with HTN, depression, hypothyroidism who presented to the emergency department on 08/19 via EMS with angioedema reportedly caused by amlodipine however the patient was able to maintain her airway. Per documentation patient was given patient was given 50 mg of IV Benadryl, 0.5 mg epinephrine, 125 mg of IV Solu-Medrol by EMS. At 0235 patient was intubated in the emergency department. Patient was admitted to the hospitalist service with angioedema and mechanical ventilation for airway protection with consults to [facility]. Hospital course to date: 08/19: Patient started on tube feedings, potassium repleted, started on Benadryl and propofol for sedation. SSI started. Air leak present today however due to swelling of the tongue we will hold off extubation. [facility] plans to try FFP in the a.m. if swelling not better. 08/20: Angioedema slightly better so we will hold off FFP today. Updated son at bedside but he did not know what medication she was taking and states that she has not had angioedema in the past. Patient still remains on Versed and propofol. Was given 500 mL bolus overnight for hypotension and will repeat for hypotension. 08/21: Leak test today at bedside with RT shows no leak and will give FFP today. Tongue looks a bit smaller today but given no leak, [facility] will not extubate today. Sedated with propofol and versed. Son at bedside today. 08/22: RT performed leak test in the AM and stated there was a leak noted and placed the patient on CPAP. She was sedated on versed at 4 and propofol at 30 but these are off for CPAP. Will removed lewis. Received FFP yesterday. Angioedema is improved. Leak test performed again with Dr. Bailey and no leak audible. Switched back to AC and sedation restarted Hospitalist Physical - Constitutional Vitals: Temp Pulse Resp BP Pulse Ox 97.4 F L 85 14 146/84 98 08/22/21 07:07 08/22/21 09:12 08/22/21 08:30 08/22/21 09:12 08/22/21 09:12 General appearance: Present: no acute distress, well-nourished, obese - EENT Eyes: Present: PERRL, EOM intact ENT: clear oral mucosa, other (angioedema) - Neck Neck: Present: normal ROM - Respiratory Respiratory effort: normal Respiratory: bilateral: CTA - Cardiovascular Rhythm: regular Heart Sounds: Present: S1 & S2. Absent: systolic murmur, diastolic murmur - Extremities Extremities: no ischemia, pulses intact, pulses symmetrical, No edema, normal temperature, normal color Peripheral Pulses: within normal limits - Abdominal General gastrointestinal: soft, non-tender, non-distended, normal bowel sounds - Integumentary Integumentary: Present: warm, dry - Psychiatric Psychiatric: other (sedated) - Neurologic Neurologic: focal deficits, other (PERRL, intact cough/gag, aggitated response to stimuli but does not follow commands) - Allied Health Allied health notes reviewed: nursing, RT Results - Labs CBC & Chem 7: 08/22/21 10:27 08/22/21 10:27 Labs: Laboratory Last Values WBC 9.0 K/mm3 (4.5-11.0) 08/22/21 03:54 RBC 3.53 M/mm3 (3.65-5.03) L 08/22/21 03:54 Hgb 11.6 gm/dl (10.1-14.3) 08/22/21 03:54 Hct 35.2 % (30.3-42.9) 08/22/21 03:54 MCV 100 fl (79-97) H 08/22/21 03:54 MCH 33 pg (28-32) H 08/22/21 03:54 MCHC 33 % (30-34) 08/22/21 03:54 RDW 16.7 % (13.2-15.2) H 08/22/21 03:54 Plt Count 233 K/mm3 (140-440) 08/22/21 03:54 Lymph # (Auto) [employer] 08/19/21 02:24 Add Manual Diff Complete 08/20/21 04:25 Total Counted 100 08/20/21 04:25 Seg Neuts % (Manual) 83.0 % (40.0-70.0) H 08/20/21 04:25 Band Neutrophils % 0 % 08/20/21 04:25 Lymphocytes % (Manual) 14.0 % (13.4-35.0) 08/20/21 04:25 Reactive Lymphs % (Man) 0 % 08/20/21 04:25 Monocytes % (Manual) 3.0 % (0.0-7.3) 08/20/21 04:25 Eosinophils % (Manual) 0 % (0.0-4.3) 08/20/21 04:25 Basophils % (Manual) 0 % (0.0-1.8) 08/20/21 04:25 Metamyelocytes % 0 % 08/20/21 04:25 Myelocytes % 0 % 08/20/21 04:25 Promyelocytes % 0 % 08/20/21 04:25 Blast Cells % 0 % 08/20/21 04:25 Nucleated RBC % Not Reportable 08/20/21 04:25 Seg Neutrophils # Man 7.5 K/mm3 (1.8-7.7) 08/20/21 04:25 Band Neutrophils # 0.0 K/mm3 08/20/21 04:25 Lymphocytes # (Manual) 1.3 K/mm3 (1.2-5.4) 08/20/21 04:25 Abs React Lymphs (Man) 0.0 K/mm3 08/20/21 04:25 Monocytes # (Manual) 0.3 K/mm3 (0.0-0.8) 08/20/21 04:25 Eosinophils # (Manual) 0.0 K/mm3 (0.0-0.4) 08/20/21 04:25 Basophils # (Manual) 0.0 K/mm3 (0.0-0.1) 08/20/21 04:25 Metamyelocytes # 0.0 K/mm3 08/20/21 04:25 Myelocytes # 0.0 K/mm3 08/20/21 04:25 Promyelocytes # 0.0 K/mm3 08/20/21 04:25 Blast Cells # 0.0 K/mm3 08/20/21 04:25 WBC Morphology Not Reportable 08/20/21 04:25 Hypersegmented Neuts Not Reportable 08/20/21 04:25 Hyposegmented Neuts Not Reportable 08/20/21 04:25 Hypogranular Neuts Not Reportable 08/20/21 04:25 Smudge Cells Not Reportable 08/20/21 04:25 Toxic Granulation Not Reportable 08/20/21 04:25 Toxic Vacuolation Not Reportable 08/20/21 04:25 Dohle Bodies Not Reportable 08/20/21 04:25 Pelger-Huet Anomaly Not Reportable 08/20/21 04:25 Erik Rods Not Reportable 08/20/21 04:25 Platelet Estimate Consistent w auto 08/20/21 04:25 Clumped Platelets Not Reportable 08/20/21 04:25 Plt Clumps, EDTA Not Reportable 08/20/21 04:25 Large Platelets Rare 08/20/21 04:25 Giant Platelets Not Reportable 08/20/21 04:25 Platelet Satelliting Not Reportable 08/20/21 04:25 Plt Morphology Comment Not Reportable 08/20/21 04:25 RBC Morphology Not Reportable 08/20/21 04:25 Dimorphic RBCs Not Reportable 08/20/21 04:25 Polychromasia Not Reportable 08/20/21 04:25 Hypochromasia Not Reportable 08/20/21 04:25 Poikilocytosis Rare 08/20/21 04:25 Anisocytosis Rare 08/20/21 04:25 Microcytosis Not Reportable 08/20/21 04:25 Macrocytosis Not Reportable 08/20/21 04:25 Spherocytes Not Reportable 08/20/21 04:25 Pappenheimer Bodies Not Reportable 08/20/21 04:25 Sickle Cells Not Reportable 08/20/21 04:25 Target Cells Not Reportable 08/20/21 04:25 Tear Drop Cells Not Reportable 08/20/21 04:25 Ovalocytes Rare 08/20/21 04:25 Helmet Cells Not Reportable 08/20/21 04:25 Rai-Olimpo Bodies Not Reportable 08/20/21 04:25 [place] Rings Not Reportable 08/20/21 04:25 Caprice Cells Not Reportable 08/20/21 04:25 Bite Cells Not Reportable 08/20/21 04:25 Crenated Cell Not Reportable 08/20/21 04:25 Elliptocytes Not Reportable 08/20/21 04:25 Acanthocytes (Spur) Not Reportable 08/20/21 04:25 Rouleaux Not Reportable 08/20/21 04:25 Hemoglobin C Crystals Not Reportable 08/20/21 04:25 Schistocytes Not Reportable 08/20/21 04:25 Malaria parasites Not Reportable 08/20/21 04:25 Marco Bodies Not Reportable 08/20/21 04:25 Hem Pathologist Commnt No 08/20/21 04:25 PT 12.8 Sec. (12.2-14.9) 08/19/21 02:24 INR 0.87 (0.87-1.13) 08/19/21 02:24 APTT 20.0 Sec. (24.2-36.6) L 08/19/21 02:24 ABG pH 7.454 pH Units (7.350-7.450) H 08/22/21 04:40 ABG pCO2 36.7 mm Hg 08/22/21 04:40 ABG pO2 109.8 mm Hg (80.0-90.0) H 08/22/21 04:40 ABG HCO3 25.1 mmol/L (20.0-26.0) 08/22/21 04:40 ABG O2 Saturation 98.5 % (95.0-99.0) 08/22/21 04:40 ABG O2 Content 20.9 (0.0-44) 08/22/21 04:40 ABG Base Excess 1.5 mmol/L (-2.0-3.0) 08/22/21 04:40 ABG Hemoglobin 12.1 gm/dl (12.0-16.0) 08/22/21 04:40 ABG Carboxyhemoglobin 0.4 % (0.0-5.0) 08/22/21 04:40 ABG Methemoglobin 0.3 % (0.0-1.5) 08/22/21 04:40 Oxyhemoglobin 97.8 % (95.0-99.0) 08/22/21 04:40 FiO2 30 % 08/22/21 04:40 Sodium 145 mmol/L (137-145) 08/22/21 03:54 Potassium 4.2 mmol/L (3.6-5.0) 08/22/21 03:54 Chloride 107.5 mmol/L (98-107) H 08/22/21 03:54 Carbon Dioxide 23 mmol/L (22-30) 08/22/21 03:54 Anion Gap 19 mmol/L 08/22/21 03:54 BUN 12 mg/dL (7-17) 08/22/21 03:54 Creatinine 0.7 mg/dL (0.6-1.2) 08/22/21 03:54 Estimated GFR > 60 ml/min 08/22/21 03:54 BUN/Creatinine Ratio 17 % 08/22/21 03:54 Glucose 123 mg/dL (65-100) H 08/22/21 03:54 POC Glucose 137 mg/dL (70-105) H 08/22/21 06:08 Calcium 8.7 mg/dL (8.4-10.2) 08/22/21 03:54 Phosphorus 2.90 mg/dL (2.5-4.5) 08/22/21 03:54 Magnesium 1.90 mg/dL (1.7-2.3) 08/22/21 03:54 Total Bilirubin 0.40 mg/dL (0.1-1.2) 08/20/21 04:25 AST 23 units/L (5-40) 08/20/21 04:25 ALT 13 units/L (7-56) 08/20/21 04:25 Alkaline Phosphatase 94 units/L (35-129) 08/20/21 04:25 Total Protein 7.3 g/dL (6.3-8.2) 08/20/21 04:25 Albumin 4.0 g/dL (3.9-5) 08/20/21 04:25 Albumin/Globulin Ratio 1.2 % 08/20/21 04:25 Triglycerides 109 mg/dL (2-149) 08/22/21 03:54 Blood Type A POSITIVE 08/21/21 15:10 Lewis/IV: Voiding Method Indwelling Catheter Active Medications - Current Medications Current Medications: Generic Name Dose Route Start Last Admin Trade Name Freq PRN Reason Stop Dose Admin Acetaminophen 650 mg 08/19/21 06:00 Acetaminophen 325 Mg Tab FEEDTUBE Q4H PRN Pain MILD(1-3)/Fever >100.5/SAEED Albuterol 2.5 mg 08/19/21 04:50 Albuterol 2.5 Mg/3 Ml Nebu IH Q3HRT PRN Shortness Of Breath Albuterol/Ipratropium 1 ampul 08/19/21 08:00 08/22/21 08:29 Ipratropium/Albuterol Sulfate 3 Ml Ampul.Neb IH 1 ampul Q6HRT WARD Administration Alprazolam 0.25 mg 08/19/21 06:00 Alprazolam 0.25 Mg Tab FEEDTUBE BID PRN Anxiety Buspirone HCl 10 mg 08/19/21 10:00 08/22/21 09:21 Buspirone 10 Mg Tab FEEDTUBE 10 mg BID WARD Administration Dextrose 50 ml 08/20/21 10:00 Dextrose 50% In Water (25gm) 50 Ml Syringe IV Q30MIN PRN Hypoglycemia Protocol Diphenhydramine HCl 25 mg 08/19/21 12:00 08/22/21 05:12 Diphenhydramine 50 Mg/Ml Vial IV 25 mg Q6H WARD Administration Famotidine 20 mg 08/19/21 10:00 08/22/21 09:21 Famotidine 20 Mg/2 Ml Inj IV 20 mg BID WARD Administration Folic Acid 1 mg 08/19/21 10:00 08/22/21 09:21 Folic Acid 1 Mg Tab FEEDTUBE 1 mg QDAY WARD Administration Heparin Sodium (Porcine) 5,000 unit 08/19/21 10:00 08/22/21 09:21 Heparin 5,000 Unit/1 Ml Vial SUB-Q 5,000 unit Q12HR WARD Administration Hydralazine HCl 10 mg 08/19/21 05:03 Hydralazine 20 Mg/1 Ml Inj IV Q6H PRN SBP >/=160; DBP >/=100 MIDAZOLAM/NS Drip 100mg/100ml 100 mg in 100 mls @ 1 mls/hr 08/19/21 04:00 08/21/21 22:06 Midazolam/Ns Drip 100mg/100ml IV 4 mg/hr TITR WARD 4 mls/hr Administration Protocol 1 MG/HR Propofol 1,000 mg in 100 mls @ 2.722 mls/hr 08/19/21 12:00 08/22/21 05:11 Diprivan 10 Mg/Ml IV 30 mcg/kg/min TITR WARD 16.329 mls/hr Administration Protocol 5 MCG/KG/MIN Insulin Human Regular 0 units 08/20/21 12:00 08/22/21 06:18 Insulin Regular, Human 100 Units/1 Ml SUB-Q Not Given Q6H WARD Protocol Levothyroxine Sodium 150 mcg 08/19/21 06:00 08/22/21 05:11 Levothyroxine 75 Mcg Tab FEEDTUBE 150 mcg DAILY@0600 WARD Administration Methylprednisolone Sodium Succinate 125 mg 08/19/21 08:00 08/22/21 05:12 Methylprednisolone Sod Succinate 125 Mg/2 Ml Inj IV 125 mg Q8HR WARD Administration Ondansetron HCl 4 mg 08/19/21 04:50 Ondansetron 4 Mg/2 Ml Inj IV Q8H PRN Nausea And Vomiting Senna 8.8 mg 08/20/21 22:00 08/21/21 21:42 Sennosides Oral Liqd 8.8 Mg/5 Ml Oral Liqd PO 8.8 mg QHS WARD Administration Sertraline HCl 25 mg 08/19/21 10:00 08/22/21 09:24 Sertraline 25 Mg Tab FEEDTUBE 25 mg QDAY WARD Administration Sodium Chloride 10 ml 08/19/21 10:00 08/22/21 09:20 Sodium Chloride 0.9% 10 Ml Flush Syringe IV 10 ml BID WARD Administration Sodium Chloride 10 ml 08/19/21 04:50 Sodium Chloride 0.9% 10 Ml Flush Syringe IV PRN PRN LINE FLUSH Thiamine HCl 100 mg 08/19/21 10:00 08/22/21 09:21 Thiamine 100 Mg Tab FEEDTUBE 100 mg QDAY WARD Administration Nutrition/Malnutrition Assess - Dietary Evaluation Nutrition/Malnutrition Findings: Nutrition Notes Start: 08/19/21 10:13 Freq: Status: Active Protocol: Document 08/20/21 14:58 ABRAHAM (Rec: 08/20/21 15:08 ABRAHAM [id number]) Nutrition Notes Initial or Follow up Brief Note Current Diagnosis Hypertension Other Pertinent Diagnosis Brent Angioedema, Myxedema, Hypothyroidsm, Hypokalemia, Psychosis. Current Diet TF-Jevity 1.2 Dieudonne @ 45 ml/hr ( from L 08/19). Height 4 ft 11 in Weight 90.718 kg [place] Body Weight (kg) 43.18 BMI 40.4 Weight change and time frame No body weight change reported in 1 day. Weight Status Morbidly Obese Subjective/Other Information RD consult for risk of malnutrition assessment, and routine F/U on TF tolerance. TF continues as prescribed, well tolerated. Pt is on Mechanical Ventilation, O2 saturation @ 100%, according to Physical Assessment History notes. Pt shows no signs of concern for risk of malnutrition at the time, according to Physical Assessment History notes. Percent of energy/protein needs met: Prescribed TF-Jevity 1.2 Dieudonne @ 45 ml/hr provides for energy/ protein needs (1,300 Kcal/60 g ) during LOS, 102% Kcal; 90% AA. #1 Nutrition Diagnosis Inadequate oral intake Diagnosis Progress(for reassessment Continues documentation) Is patient on ventilator? Yes Is Patient Ambulatory and/or Out of Bed No REE-(Manteno-St. Jeor-confined to bed) 1575.480 Kcal/Kg value to use for calculation 14 Approximate Energy Requirements Using 1270 kcal/Kg Calculation Used for Recommendations Kcal/kg Additional Notes Protein: 1-1.2 g/Kg AdjBW; 67- 80 g/day. Fluids: 1 ml/Kcal, or as per MD. Nutrition Intervention Nutrition Support: Continue Jevity 1.2 Dieudonne @ 45 ml/hr. Flush: 70 ml water Q 4 hr, or as per MD. Kcal 1,300 Protein (gm) 60 Carbohydrates (gm) 184 Fat (gm) 43 Fluid (mL) 874 Fiber (gm) 20 % RDI: 102% Kcal; 90% AA. Goal #1 Provide at least 75% of energy /protein needs through Enteral Feeding during LOS. Goal #2 Maintain body weight within +/ -3% of admission body weight during LOS. Follow-Up By: 08/27/21 Additional Comments Continue monitoring TF tolerance and BM. <CATRINA MONDRAGON - Last Filed: 08/22/21 13:58> Assessment and Plan Assessment and plan: I saw and evaluated the patient. I agree with the findings and the plan of care as documented in the Nurse Practitioner's~note, with the following corrections and additions. Hospitalist Physical - Constitutional Vitals: Temp Pulse Resp BP Pulse Ox 98.0 F 74 12 154/85 100 08/22/21 11:27 08/22/21 13:11 08/22/21 13:11 08/22/21 13:00 08/22/21 13:00 Results - Labs CBC & Chem 7: 08/22/21 10:27 08/22/21 10:27 Labs: Laboratory Last Values WBC 9.7 K/mm3 (4.5-11.0) 08/22/21 10:27 RBC 3.80 M/mm3 (3.65-5.03) 08/22/21 10:27 Hgb 12.3 gm/dl (10.1-14.3) 08/22/21 10:27 Hct 37.6 % (30.3-42.9) 08/22/21 10:27 MCV 99 fl (79-97) H 08/22/21 10:27 MCH 32 pg (28-32) 08/22/21 10:27 MCHC 33 % (30-34) 08/22/21 10:27 RDW 16.6 % (13.2-15.2) H 08/22/21 10:27 Plt Count 252 K/mm3 (140-440) 08/22/21 10:27 Lymph # (Auto) [employer] 08/19/21 02:24 Add Manual Diff Complete 08/20/21 04:25 Total Counted 100 08/20/21 04:25 Seg Neuts % (Manual) 83.0 % (40.0-70.0) H 08/20/21 04:25 Band Neutrophils % 0 % 08/20/21 04:25 Lymphocytes % (Manual) 14.0 % (13.4-35.0) 08/20/21 04:25 Reactive Lymphs % (Man) 0 % 08/20/21 04:25 Monocytes % (Manual) 3.0 % (0.0-7.3) 08/20/21 04:25 Eosinophils % (Manual) 0 % (0.0-4.3) 08/20/21 04:25 Basophils % (Manual) 0 % (0.0-1.8) 08/20/21 04:25 Metamyelocytes % 0 % 08/20/21 04:25 Myelocytes % 0 % 08/20/21 04:25 Promyelocytes % 0 % 08/20/21 04:25 Blast Cells % 0 % 08/20/21 04:25 Nucleated RBC % Not Reportable 08/20/21 04:25 Seg Neutrophils # Man 7.5 K/mm3 (1.8-7.7) 08/20/21 04:25 Band Neutrophils # 0.0 K/mm3 08/20/21 04:25 Lymphocytes # (Manual) 1.3 K/mm3 (1.2-5.4) 08/20/21 04:25 Abs React Lymphs (Man) 0.0 K/mm3 08/20/21 04:25 Monocytes # (Manual) 0.3 K/mm3 (0.0-0.8) 08/20/21 04:25 Eosinophils # (Manual) 0.0 K/mm3 (0.0-0.4) 08/20/21 04:25 Basophils # (Manual) 0.0 K/mm3 (0.0-0.1) 08/20/21 04:25 Metamyelocytes # 0.0 K/mm3 08/20/21 04:25 Myelocytes # 0.0 K/mm3 08/20/21 04:25 Promyelocytes # 0.0 K/mm3 08/20/21 04:25 Blast Cells # 0.0 K/mm3 08/20/21 04:25 WBC Morphology Not Reportable 08/20/21 04:25 Hypersegmented Neuts Not Reportable 08/20/21 04:25 Hyposegmented Neuts Not Reportable 08/20/21 04:25 Hypogranular Neuts Not Reportable 08/20/21 04:25 Smudge Cells Not Reportable 08/20/21 04:25 Toxic Granulation Not Reportable 08/20/21 04:25 Toxic Vacuolation Not Reportable 08/20/21 04:25 Dohle Bodies Not Reportable 08/20/21 04:25 Pelger-Huet Anomaly Not Reportable 08/20/21 04:25 Erik Rods Not Reportable 08/20/21 04:25 Platelet Estimate Consistent w auto 08/20/21 04:25 Clumped Platelets Not Reportable 08/20/21 04:25 Plt Clumps, EDTA Not Reportable 08/20/21 04:25 Large Platelets Rare 08/20/21 04:25 Giant Platelets Not Reportable 08/20/21 04:25 Platelet Satelliting Not Reportable 08/20/21 04:25 Plt Morphology Comment Not Reportable 08/20/21 04:25 RBC Morphology Not Reportable 08/20/21 04:25 Dimorphic RBCs Not Reportable 08/20/21 04:25 Polychromasia Not Reportable 08/20/21 04:25 Hypochromasia Not Reportable 08/20/21 04:25 Poikilocytosis Rare 08/20/21 04:25 Anisocytosis Rare 08/20/21 04:25 Microcytosis Not Reportable 08/20/21 04:25 Macrocytosis Not Reportable 08/20/21 04:25 Spherocytes Not Reportable 08/20/21 04:25 Pappenheimer Bodies Not Reportable 08/20/21 04:25 Sickle Cells Not Reportable 08/20/21 04:25 Target Cells Not Reportable 08/20/21 04:25 Tear Drop Cells Not Reportable 08/20/21 04:25 Ovalocytes Rare 08/20/21 04:25 Helmet Cells Not Reportable 08/20/21 04:25 Rai-Olimpo Bodies Not Reportable 08/20/21 04:25 [place] Rings Not Reportable 08/20/21 04:25 Caprice Cells Not Reportable 08/20/21 04:25 Bite Cells Not Reportable 08/20/21 04:25 Crenated Cell Not Reportable 08/20/21 04:25 Elliptocytes Not Reportable 08/20/21 04:25 Acanthocytes (Spur) Not Reportable 08/20/21 04:25 Rouleaux Not Reportable 08/20/21 04:25 Hemoglobin C Crystals Not Reportable 08/20/21 04:25 Schistocytes Not Reportable 08/20/21 04:25 Malaria parasites Not Reportable 08/20/21 04:25 Marco Bodies Not Reportable 08/20/21 04:25 Hem Pathologist Commnt No 08/20/21 04:25 PT 12.8 Sec. (12.2-14.9) 08/19/21 02:24 INR 0.87 (0.87-1.13) 08/19/21 02:24 APTT 20.0 Sec. (24.2-36.6) L 08/19/21 02:24 ABG pH 7.511 (7.320-7.450) H 08/22/21 10:16 POC ABG pCO2 30.1 mmHg (32.0-48.0) L 08/22/21 10:16 ABG pCO2 36.7 mm Hg 08/22/21 04:40 POC ABG pO2 109.5 mmHg (83-108) H 08/22/21 10:16 ABG pO2 109.8 mm Hg (80.0-90.0) H 08/22/21 04:40 POC ABG HCO3 23.5 08/22/21 10:16 ABG HCO3 25.1 mmol/L (20.0-26.0) 08/22/21 04:40 ABG O2 Saturation 98.2 (0-100) 08/22/21 10:16 ABG O2 Content 20.9 (0.0-44) 08/22/21 04:40 POC ABG Base Excess 1.2 08/22/21 10:16 ABG Base Excess 1.5 mmol/L (-2.0-3.0) 08/22/21 04:40 ABG Hemoglobin 12.0 (12.0-17.5) 08/22/21 10:16 ABG Oxyhemoglobin 96.8 (94-98) 08/22/21 10:16 ABG Carboxyhemoglobin 0.4 % (0.0-5.0) 08/22/21 04:40 ABG Methemoglobin 0.3 (0.0-1.5) 08/22/21 10:16 ABG Sodium Not Reportable 08/22/21 10:16 ABG Potassium Not Reportable 08/22/21 10:16 ABG Chloride Not Reportable 08/22/21 10:16 ABG Glucose Not Reportable 08/22/21 10:16 Oxyhemoglobin 97.8 % (95.0-99.0) 08/22/21 04:40 Carboxyhemoglobin 1.1 (0.5-1.5) 08/22/21 10:16 FiO2 30 % 08/22/21 04:40 FiO2 % 30.0 08/22/21 10:16 Sodium 140 mmol/L (137-145) 08/22/21 10:27 Potassium 3.8 mmol/L (3.6-5.0) 08/22/21 10:27 Chloride 101.8 mmol/L (98-107) 08/22/21 10:27 Carbon Dioxide 26 mmol/L (22-30) 08/22/21 10:27 Anion Gap 16 mmol/L 08/22/21 10:27 BUN 14 mg/dL (7-17) 08/22/21 10:27 Creatinine 0.6 mg/dL (0.6-1.2) 08/22/21 10:27 Estimated GFR > 60 ml/min 08/22/21 10:27 BUN/Creatinine Ratio 23 % 08/22/21 10:27 Glucose 129 mg/dL (65-100) H 08/22/21 10:27 POC Glucose 125 mg/dL (70-105) H 08/22/21 11:13 Calcium 9.0 mg/dL (8.4-10.2) 08/22/21 10:27 Phosphorus 2.90 mg/dL (2.5-4.5) 08/22/21 03:54 Magnesium 1.90 mg/dL (1.7-2.3) 08/22/21 03:54 Total Bilirubin 0.40 mg/dL (0.1-1.2) 08/20/21 04:25 AST 23 units/L (5-40) 08/20/21 04:25 ALT 13 units/L (7-56) 08/20/21 04:25 Alkaline Phosphatase 94 units/L (35-129) 08/20/21 04:25 Total Protein 7.3 g/dL (6.3-8.2) 08/20/21 04:25 Albumin 4.0 g/dL (3.9-5) 08/20/21 04:25 Albumin/Globulin Ratio 1.2 % 08/20/21 04:25 Triglycerides 109 mg/dL (2-149) 08/22/21 03:54 Arterial Blood Glucose Not Reportable 08/22/21 10:16 Blood Type A POSITIVE 08/21/21 15:10 Lewis/IV: Voiding Method Indwelling Catheter Active Medications - Current Medications Current Medications: Generic Name Dose Route Start Last Admin Trade Name Freq PRN Reason Stop Dose Admin Acetaminophen 650 mg 08/19/21 06:00 Acetaminophen 325 Mg Tab FEEDTUBE Q4H PRN Pain MILD(1-3)/Fever >100.5/SAEED Albuterol 2.5 mg 08/19/21 04:50 Albuterol 2.5 Mg/3 Ml Nebu IH Q3HRT PRN Shortness Of Breath Albuterol/Ipratropium 1 ampul 08/19/21 08:00 08/22/21 13:04 Ipratropium/Albuterol Sulfate 3 Ml Ampul.Neb IH 1 ampul Q6HRT WARD Administration Alprazolam 0.25 mg 08/19/21 06:00 Alprazolam 0.25 Mg Tab FEEDTUBE BID PRN Anxiety Buspirone HCl 10 mg 08/19/21 10:00 08/22/21 09:21 Buspirone 10 Mg Tab FEEDTUBE 10 mg BID WARD Administration Dextrose 50 ml 08/20/21 10:00 Dextrose 50% In Water (25gm) 50 Ml Syringe IV Q30MIN PRN Hypoglycemia Protocol Diphenhydramine HCl 25 mg 08/19/21 12:00 08/22/21 12:33 Diphenhydramine 50 Mg/Ml Vial IV 25 mg Q6H WARD Administration Famotidine 20 mg 08/19/21 10:00 08/22/21 09:21 Famotidine 20 Mg/2 Ml Inj IV 20 mg BID WARD Administration Folic Acid 1 mg 08/19/21 10:00 08/22/21 09:21 Folic Acid 1 Mg Tab FEEDTUBE 1 mg QDAY WARD Administration Heparin Sodium (Porcine) 5,000 unit 08/19/21 10:00 08/22/21 09:21 Heparin 5,000 Unit/1 Ml Vial SUB-Q 5,000 unit Q12HR WARD Administration Hydralazine HCl 10 mg 08/19/21 05:03 Hydralazine 20 Mg/1 Ml Inj IV Q6H PRN SBP >/=160; DBP >/=100 MIDAZOLAM/NS Drip 100mg/100ml 100 mg in 100 mls @ 1 mls/hr 08/19/21 04:00 08/22/21 10:39 Midazolam/Ns Drip 100mg/100ml IV 3 mg/hr TITR WARD 3 mls/hr Titration Protocol 1 MG/HR Propofol 1,000 mg in 100 mls @ 2.722 mls/hr 08/19/21 12:00 08/22/21 12:39 Diprivan 10 Mg/Ml IV 15 mcg/kg/min TITR WARD 8.165 mls/hr Administration Protocol 5 MCG/KG/MIN Insulin Human Regular 0 units 08/20/21 12:00 08/22/21 12:40 Insulin Regular, Human 100 Units/1 Ml SUB-Q Not Given Q6H [facility] Protocol Levothyroxine Sodium 150 mcg 08/19/21 06:00 08/22/21 05:11 Levothyroxine 75 Mcg Tab FEEDTUBE 150 mcg DAILY@0600 WARD Administration Methylprednisolone Sodium Succinate 125 mg 08/19/21 08:00 08/22/21 05:12 Methylprednisolone Sod Succinate 125 Mg/2 Ml Inj IV 125 mg Q8HR WARD Administration Ondansetron HCl 4 mg 08/19/21 04:50 Ondansetron 4 Mg/2 Ml Inj IV Q8H PRN Nausea And Vomiting Senna 8.8 mg 08/20/21 22:00 08/21/21 21:42 Sennosides Oral Liqd 8.8 Mg/5 Ml Oral Liqd PO 8.8 mg QHS WARD Administration Sertraline HCl 25 mg 08/19/21 10:00 08/22/21 09:24 Sertraline 25 Mg Tab FEEDTUBE 25 mg QDAY WARD Administration Sodium Chloride 10 ml 08/19/21 10:00 08/22/21 09:20 Sodium Chloride 0.9% 10 Ml Flush Syringe IV 10 ml BID WARD Administration Sodium Chloride 10 ml 08/19/21 04:50 Sodium Chloride 0.9% 10 Ml Flush Syringe IV PRN PRN LINE FLUSH Thiamine HCl 100 mg 08/19/21 10:00 08/22/21 09:21 Thiamine 100 Mg Tab FEEDTUBE 100 mg QDAY WARD Administration Nutrition/Malnutrition Assess - Dietary Evaluation Nutrition/Malnutrition Findings: Nutrition Notes Start: 08/19/21 10:13 Freq: Status: Active Protocol: Document 08/20/21 14:58 ABRAHAM (Rec: 08/20/21 15:08 ABRAHAM [id number]) Nutrition Notes Initial or Follow up Brief Note Current Diagnosis Hypertension Other Pertinent Diagnosis Brent Angioedema, Myxedema, Hypothyroidsm, Hypokalemia, Psychosis. Current Diet TF-Jevity 1.2 Dieudonne @ 45 ml/hr ( from L 08/19). Height 4 ft 11 in Weight 90.718 kg [place] Body Weight (kg) 43.18 BMI 40.4 Weight change and time frame No body weight change reported in 1 day. Weight Status Morbidly Obese Subjective/Other Information RD consult for risk of malnutrition assessment, and routine F/U on TF tolerance. TF continues as prescribed, well tolerated. Pt is on Mechanical Ventilation, O2 saturation @ 100%, according to Physical Assessment History notes. Pt shows no signs of concern for risk of malnutrition at the time, according to Physical Assessment History notes. Percent of energy/protein needs met: Prescribed TF-Jevity 1.2 Dieudonne @ 45 ml/hr provides for energy/ protein needs (1,300 Kcal/60 g ) during LOS, 102% Kcal; 90% AA. #1 Nutrition Diagnosis Inadequate oral intake Diagnosis Progress(for reassessment Continues documentation) Is patient on ventilator? Yes Is Patient Ambulatory and/or Out of Bed No REE-(Manteno-St. Jeor-confined to bed) 1575.480 Kcal/Kg value to use for calculation 14 Approximate Energy Requirements Using 1270 kcal/Kg Calculation Used for Recommendations Kcal/kg Additional Notes Protein: 1-1.2 g/Kg AdjBW; 67- 80 g/day. Fluids: 1 ml/Kcal, or as per MD. Nutrition Intervention Nutrition Support: Continue Jevity 1.2 Dieudonne @ 45 ml/hr. Flush: 70 ml water Q 4 hr, or as per MD. Kcal 1,300 Protein (gm) 60 Carbohydrates (gm) 184 Fat (gm) 43 Fluid (mL) 874 Fiber (gm) 20 % RDI: 102% Kcal; 90% AA. Goal #1 Provide at least 75% of energy /protein needs through Enteral Feeding during LOS. Goal #2 Maintain body weight within +/ -3% of admission body weight during LOS. Follow-Up By: 08/27/21 Additional Comments Continue monitoring TF tolerance and BM.
[2021-08-22 10:45] LABS: Hematocrit 37.6 % (30.3-42.9); Hemoglobin 12.3 gm/dl (10.1-14.3); Mean Corpuscular HGB Conc 33 % (30-34); Mean Corpuscular Volume 99 fl (79-97); Platelet Count 252 K/mm3 (140-440); Red Cell Distribution Width 16.6 % (13.2-15.2)
[2021-08-22 11:06] LABS: Blood Urea Nitrogen 14 mg/dL (7-17); Hemolysis Index 3
--- NOTE | 2021-08-22 11:09 | Progress Note ---
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 Continue with IV steroids 2. Continue scheduled benadryl and pepcid 3. Trial of FFP given 4. Wean FiO2 for sats > 88% 5. Keep intubated on mechanical ventilator. No significant air leak, keep intubated. Will reassess tomorrow CCT 31 minutes Subjective Date of service: 08/22/21 Interval history: Remains sedated on mechanical ventilator. Still with significant tongue swelling though slight improvement noted.. Remain intubated. Leak test today showed no significant air leak Objective Vital Signs - 12hr 08/22/21 08/22/21 08/22/21 00:00 01:00 01:05 Temperature 97.5 F L Pulse Rate 60 61 Pulse Rate [ 60 Bilateral] Pulse Rate [ From Monitor] Respiratory 14 14 Rate Respiratory 14 Rate [Bilateral ] Blood Pressure 105/75 105/75 O2 Sat by Pulse 99 99 Oximetry 08/22/21 08/22/21 08/22/21 02:01 03:00 04:00 Temperature 97.8 F Pulse Rate 68 78 82 Pulse Rate [ Bilateral] Pulse Rate [ 82 From Monitor] Respiratory 14 14 18 Rate Respiratory Rate [Bilateral ] Blood Pressure 135/82 158/89 O2 Sat by Pulse 100 99 100 Oximetry 08/22/21 08/22/21 08/22/21 04:01 04:30 05:01 Temperature Pulse Rate 78 71 67 Pulse Rate [ Bilateral] Pulse Rate [ From Monitor] Respiratory 15 14 Rate Respiratory Rate [Bilateral ] Blood Pressure 147/79 142/77 137/78 O2 Sat by Pulse 100 100 100 Oximetry 08/22/21 08/22/21 08/22/21 06:01 07:01 07:07 Temperature 97.4 F L Pulse Rate 85 60 Pulse Rate [ Bilateral] Pulse Rate [ From Monitor] Respiratory 17 14 Rate Respiratory Rate [Bilateral ] Blood Pressure 144/81 124/71 O2 Sat by Pulse 100 100 Oximetry 08/22/21 08/22/21 08/22/21 08:00 08:01 08:30 Temperature Pulse Rate 79 63 59 L Pulse Rate [ 68 Bilateral] Pulse Rate [ 82 From Monitor] Respiratory 18 14 Rate Respiratory 14 Rate [Bilateral ] Blood Pressure 125/80 122/70 O2 Sat by Pulse 100 100 99 Oximetry 08/22/21 08/22/21 08/22/21 09:01 09:12 10:06 Temperature Pulse Rate 72 85 90 Pulse Rate [ Bilateral] Pulse Rate [ From Monitor] Respiratory 14 18 Rate Respiratory Rate [Bilateral ] Blood Pressure 146/84 146/84 O2 Sat by Pulse 100 98 99 Oximetry 08/22/21 10:36 Temperature Pulse Rate Pulse Rate [ Bilateral] Pulse Rate [ From Monitor] Respiratory Rate Respiratory Rate [Bilateral ] Blood Pressure O2 Sat by Pulse 98 Oximetry Constitutional: no acute distress, other (Sedated) ENT: oropharynx moist, other (Orally intubated significant swelling of the tongue with protrusion) Neck: supple, no lymphadenopathy Effort: other (Supported on ventilator) Ascultation: Bilateral: clear Cardiovascular: regular rate and rhythm Gastrointestinal: normoactive bowel sounds, soft, non-tender, other (Obese) Extremities: no cyanosis, no edema, pink and warm Neurologic: other (Sedated) Psychiatric: other (Sedated) CBC and BMP: 08/22/21 10:27 08/22/21 10:27 ABG, PT/INR, D-dimer: ABG ABG pH 7.454 pH Units (7.350-7.450) H 08/22/21 04:40 ABG pCO2 36.7 mm Hg 08/22/21 04:40 ABG pO2 109.8 mm Hg (80.0-90.0) H 08/22/21 04:40 ABG O2 Saturation 98.5 % (95.0-99.0) 08/22/21 04:40 PT/INR, D-dimer PT 12.8 Sec. (12.2-14.9) 08/19/21 02:24 INR 0.87 (0.87-1.13) 08/19/21 02:24 Abnormal lab findings: Abnormal Labs 08/19/21 08/19/21 08/19/21 02:24 02:24 02:24 WBC 13.9 H RBC MCV 98 H MCH 33 H RDW 15.7 H Seg Neuts % (Manual) Lymphocytes % (Manual) 52.0 H Lymphocytes # (Manual) 7.2 H APTT 20.0 L ABG pH ABG pO2 ABG O2 Saturation ABG Base Excess ABG Hemoglobin Potassium 3.3 L Chloride Carbon Dioxide 20 L Glucose 143 H POC Glucose Calcium Total Protein 8.3 H 08/19/21 08/19/21 08/19/21 06:15 10:20 11:10 WBC RBC MCV MCH RDW Seg Neuts % (Manual) Lymphocytes % (Manual) Lymphocytes # (Manual) APTT ABG pH 7.465 H 7.503 H ABG pO2 177.7 H 90.5 H ABG O2 Saturation 99.2 H ABG Base Excess ABG Hemoglobin Potassium Chloride Carbon Dioxide Glucose POC Glucose 171 H Calcium Total Protein 08/19/21 08/20/21 08/20/21 16:33 00:03 04:25 WBC RBC MCV 98 H MCH 33 H RDW 15.9 H Seg Neuts % (Manual) 83.0 H Lymphocytes % (Manual) Lymphocytes # (Manual) APTT ABG pH ABG pO2 ABG O2 Saturation ABG Base Excess ABG Hemoglobin Potassium Chloride Carbon Dioxide Glucose POC Glucose 179 H 133 H Calcium Total Protein 08/20/21 08/20/21 08/20/21 04:25 04:30 05:39 WBC RBC MCV MCH RDW Seg Neuts % (Manual) Lymphocytes % (Manual) Lymphocytes # (Manual) APTT ABG pH ABG pO2 95.5 H ABG O2 Saturation ABG Base Excess -2.2 L ABG Hemoglobin Potassium Chloride Carbon Dioxide 21 L Glucose 143 H POC Glucose 168 H Calcium 8.2 L Total Protein 08/20/21 08/20/21 08/21/21 12:04 16:38 00:12 WBC RBC MCV MCH RDW Seg Neuts % (Manual) Lymphocytes % (Manual) Lymphocytes # (Manual) APTT ABG pH ABG pO2 ABG O2 Saturation ABG Base Excess ABG Hemoglobin Potassium Chloride Carbon Dioxide Glucose POC Glucose 151 H 135 H 123 H Calcium Total Protein 08/21/21 08/21/21 08/21/21 04:58 04:58 04:59 WBC RBC 3.64 L MCV 100 H MCH RDW 16.4 H Seg Neuts % (Manual) Lymphocytes % (Manual) Lymphocytes # (Manual) APTT ABG pH ABG pO2 ABG O2 Saturation ABG Base Excess -2.6 L ABG Hemoglobin 11.6 L Potassium 3.5 L Chloride 109.5 H Carbon Dioxide 19 L Glucose 159 H POC Glucose Calcium 8.3 L Total Protein 08/21/21 08/21/21 08/21/21 05:22 11:21 16:29 WBC RBC MCV MCH RDW Seg Neuts % (Manual) Lymphocytes % (Manual) Lymphocytes # (Manual) APTT ABG pH ABG pO2 ABG O2 Saturation ABG Base Excess ABG Hemoglobin Potassium Chloride Carbon Dioxide Glucose POC Glucose 143 H 133 H 122 H Calcium Total Protein 08/22/21 08/22/21 08/22/21 00:03 03:54 03:54 WBC RBC 3.53 L MCV 100 H MCH 33 H RDW 16.7 H Seg Neuts % (Manual) Lymphocytes % (Manual) Lymphocytes # (Manual) APTT ABG pH ABG pO2 ABG O2 Saturation ABG Base Excess ABG Hemoglobin Potassium Chloride 107.5 H Carbon Dioxide Glucose 123 H POC Glucose 132 H Calcium Total Protein 08/22/21 08/22/21 08/22/21 04:40 06:08 10:27 WBC RBC MCV 99 H MCH RDW 16.6 H Seg Neuts % (Manual) Lymphocytes % (Manual) Lymphocytes # (Manual) APTT ABG pH 7.454 H ABG pO2 109.8 H ABG O2 Saturation ABG Base Excess ABG Hemoglobin Potassium Chloride Carbon Dioxide Glucose POC Glucose 137 H Calcium Total Protein 08/22/21 10:27 WBC RBC MCV MCH RDW Seg Neuts % (Manual) Lymphocytes % (Manual) Lymphocytes # (Manual) APTT ABG pH ABG pO2 ABG O2 Saturation ABG Base Excess ABG Hemoglobin Potassium Chloride Carbon Dioxide Glucose 129 H POC Glucose Calcium Total Protein
[2021-08-22 11:11] LABS: BUN/Creatinine Ratio 23
[2021-08-22] MEDS: MIDAZOLAM/NS Drip 100mg/100ml 100 MG/100 ML BAG IV SCH (16:45)
[2021-08-22] MEDS: SENNOSIDES ORAL LIQD 8.8 MG/5 ML ORAL LIQD PO SCH (21:37)
[2021-08-23] MEDS: INSULIN REGULAR, HUMAN 100 UNITS/1 ML SUB-Q SCH ×4 (00:07→18:12)
[2021-08-23] MEDS: IPRATROPIUM/ALBUTEROL SULFATE 3 ML AMPUL.NEB IH SCH ×4 (02:45→20:15)
[2021-08-23 04:35] LABS: Hematocrit 36.2 % (30.3-42.9); Mean Corpuscular HGB Conc 33 % (30-34); Mean Corpuscular Volume 98 fl (79-97); Platelet Count 233 K/mm3 (140-440); Red Cell Distribution Width 16.1 % (13.2-15.2)
[2021-08-23 04:47] LABS: Blood Urea Nitrogen 17 mg/dL (7-17); Calcium 8.7 mg/dL (8.4-10.2); Hemolysis Index 2
[2021-08-23 05:05] LABS: BUN/Creatinine Ratio 28
[2021-08-23] MEDS: diphenhydrAMINE 50 MG/ML VIAL IV SCH ×3 (05:06→18:35)
[2021-08-23] MEDS: LEVOTHYROXINE 75 MCG TAB FEEDTUBE SCH (05:06)
[2021-08-23] MEDS: methylPREDNISolone Sod Succinate 125 MG/2 ML INJ IV SCH ×3 (05:06→21:27)
[2021-08-23] MEDS: MULTIVITAMIN / MINERAL ORAL LIQUID 15 ML FEEDTUBE SCH (10:07)
[2021-08-23] MEDS: FAMOTIDINE 20 MG/2 ML INJ IV SCH ×2 (10:07→21:27)
[2021-08-23] MEDS: busPIRone 10 MG TAB FEEDTUBE SCH ×2 (10:08→21:28)
[2021-08-23] MEDS: FOLIC ACID 1 MG TAB FEEDTUBE SCH (10:08)
[2021-08-23] MEDS: SERTRALINE 25 MG TAB FEEDTUBE SCH (10:08)
[2021-08-23] MEDS: THIAMINE 100 MG TAB FEEDTUBE SCH (10:08)
[2021-08-23] MEDS: HEPARIN 5,000 UNIT/1 ML VIAL SUB-Q SCH ×2 (10:08→21:26)
--- NOTE | 2021-08-23 11:38 | Progress Note ---
<DELICIA LOYA - Last Filed: 08/23/21 18:45> Assessment and Plan Assessment and plan: This is a 76-year-old female with hypertension, psychiatric illness, and hypothyroidism admitted with angioedema and intubated for airway protection Hospital Course to Date: 08/19: Patient started on tube feedings, potassium repleted, started on Benadryl and propofol for sedation. SSI started. Air leak present today however due to swelling of the tongue we will hold off extubation. CCM plans to try FFP in the a.m. if swelling not better. 08/20: Angioedema slightly better so we will hold off FFP today. Updated son at bedside but he did not know what medication she was taking and states that she has not had angioedema in the past. Patient still remains on Versed and propofol. Was given 500 mL bolus overnight for hypotension and will repeat for hypotension. 08/21: Leak test today at bedside with RT shows no leak and will give FFP today. Tongue looks a bit smaller today but given no leak, CCM will not extubate today. Sedated with propofol and versed. Son at bedside today. 08/22: RT performed leak test in the AM and stated there was a leak noted and placed the patient on CPAP. She was sedated on versed at 4 and propofol at 30 but these are off for CPAP. Will removed lewis. Received FFP yesterday. Angioedema is improved. Leak test performed again with Dr. Bailey and no leak audible. Switched back to AC and sedation restarted. 08/23: Remains on the vent and sedated. Cuff leak assessed again today by CCM, still no significant air leak noted. Per CCM keep patient intubated and sedated and continue IV steroids and histamine therapy for now. Fentanyl gtt added, plan to wean off versed for RASS goal of 0 to -1. Assessment and Plan Neuro: Sedated h/o depression -Restart home thiamine, multivitamin, Zoloft, BuSpar and as needed Xanax -Sedated with propofol and Versed -Fentanyl gtt added, plan to wean off versed -RASS goal 0 to -1 -Avoid delirium -Reorientation as needed -Maintain sleep-wake cycle -As needed analgesia Cardiac:Hypertension -BP stable -resume home antihypertenisve regimen when available and if needed -Continue blood pressure monitor per protocol -Hydralazine as needed for SBP above 160 Respiratory: Acute hypoxic respiratory failure 2/2 angioedema -Intubated in the emergency department on 08/19 for airway protection -Vent setting: PRVC-30%,6,12,450 -No ABG today -CCM consulted, appreciate recommendations -Cuff leak assessed again today by CCM, still no significant air leak noted -Continue IV Steroids and histamine therapy -VAP bundle addressed -Aspiration precaution HOB above 30 -Daily SBT and SAT trials as tolerated -PRN ABG and CXR per CCM -Continue SPO2 monitoring for SPO2 goal above 92% Endo: Hyperglycemia h/o hypothyroidism -Continue Q6hrs accucheck with SSI -Avoid hypoglycemia -While critically ill target blood glucose of 140-180 -continue synthroid #GI/DVT Prophylaxis -PPI- Pepcid -Heparin SubQ -SCDs to bilateral lower extremities while in bed The high probability of a clinically significant, sudden or life threatening deterioration of the [Respi, Endo] system(s) required my full and direct attention, intervention and personal management. The aggregate critical care time was [60] minutes. This time is in addition to time spent performing reported procedures but includes the following: [x] Data Review and interpretation [x] Patient assessment and monitoring of vital signs [x] Documentation [x] Medication orders and management Disposition Plan: ICU Total Time Spent with Patient (Minutes): 60 History Interval history: Patient seen and examined at the bedside. Intubated and sedated, RASS -2. Open eyes spontaneously, move all extremities. CARMEN overnight. Hospitalist Physical - Constitutional Vitals: Temp Pulse Resp BP Pulse Ox 98.0 F 59 L 12 145/81 100 08/23/21 11:25 08/23/21 08:24 08/23/21 08:24 08/23/21 08:24 08/23/21 08:24 General appearance: Present: no acute distress, well-nourished, obese, other (Intubated and sedated) - EENT Eyes: Present: PERRL - Neck Neck: Present: normal ROM - Respiratory Respiratory effort: normal Respiratory: bilateral: diminished - Cardiovascular Rhythm: regular Heart Sounds: Present: S1 & S2 - Extremities Extremities: no ischemia, pulses intact, pulses symmetrical Extremity abnormal: edema - Peripheral Assessment Generalized Edema Type: Non-pitting Edema Degree: 1+ Capillary Refill: < 3 seconds Skin Temperature: Warm Peripheral Pulses: within normal limits - Abdominal General gastrointestinal: soft, non-distended, normal bowel sounds - Integumentary Integumentary: Present: warm, dry - Psychiatric Psychiatric: other (Intubated and sedated) - Neurologic Neurologic: moves all extremities, other (Intubated and sedated) - Allied Health Allied health notes reviewed: nursing Results - Labs CBC & Chem 7: 08/23/21 04:11 08/23/21 04:11 Labs: Laboratory Last Values WBC 10.0 K/mm3 (4.5-11.0) 08/23/21 04:11 RBC 3.70 M/mm3 (3.65-5.03) 08/23/21 04:11 Hgb 12.0 gm/dl (10.1-14.3) 08/23/21 04:11 Hct 36.2 % (30.3-42.9) 08/23/21 04:11 MCV 98 fl (79-97) H 08/23/21 04:11 MCH 33 pg (28-32) H 08/23/21 04:11 MCHC 33 % (30-34) 08/23/21 04:11 RDW 16.1 % (13.2-15.2) H 08/23/21 04:11 Plt Count 233 K/mm3 (140-440) 08/23/21 04:11 Lymph # (Auto) Supervisor [employer] 08/19/21 02:24 Add Manual Diff Complete 08/20/21 04:25 Total Counted 100 08/20/21 04:25 Seg Neuts % (Manual) 83.0 % (40.0-70.0) H 08/20/21 04:25 Band Neutrophils % 0 % 08/20/21 04:25 Lymphocytes % (Manual) 14.0 % (13.4-35.0) 08/20/21 04:25 Reactive Lymphs % (Man) 0 % 08/20/21 04:25 Monocytes % (Manual) 3.0 % (0.0-7.3) 08/20/21 04:25 Eosinophils % (Manual) 0 % (0.0-4.3) 08/20/21 04:25 Basophils % (Manual) 0 % (0.0-1.8) 08/20/21 04:25 Metamyelocytes % 0 % 08/20/21 04:25 Myelocytes % 0 % 08/20/21 04:25 Promyelocytes % 0 % 08/20/21 04:25 Blast Cells % 0 % 08/20/21 04:25 Nucleated RBC % Not Reportable 08/20/21 04:25 Seg Neutrophils # Man 7.5 K/mm3 (1.8-7.7) 08/20/21 04:25 Band Neutrophils # 0.0 K/mm3 08/20/21 04:25 Lymphocytes # (Manual) 1.3 K/mm3 (1.2-5.4) 08/20/21 04:25 Abs React Lymphs (Man) 0.0 K/mm3 08/20/21 04:25 Monocytes # (Manual) 0.3 K/mm3 (0.0-0.8) 08/20/21 04:25 Eosinophils # (Manual) 0.0 K/mm3 (0.0-0.4) 08/20/21 04:25 Basophils # (Manual) 0.0 K/mm3 (0.0-0.1) 08/20/21 04:25 Metamyelocytes # 0.0 K/mm3 08/20/21 04:25 Myelocytes # 0.0 K/mm3 08/20/21 04:25 Promyelocytes # 0.0 K/mm3 08/20/21 04:25 Blast Cells # 0.0 K/mm3 08/20/21 04:25 WBC Morphology Not Reportable 08/20/21 04:25 Hypersegmented Neuts Not Reportable 08/20/21 04:25 Hyposegmented Neuts Not Reportable 08/20/21 04:25 Hypogranular Neuts Not Reportable 08/20/21 04:25 Smudge Cells Not Reportable 08/20/21 04:25 Toxic Granulation Not Reportable 08/20/21 04:25 Toxic Vacuolation Not Reportable 08/20/21 04:25 Dohle Bodies Not Reportable 08/20/21 04:25 Pelger-Huet Anomaly Not Reportable 08/20/21 04:25 Erik Rods Not Reportable 08/20/21 04:25 Platelet Estimate Consistent w auto 08/20/21 04:25 Clumped Platelets Not Reportable 08/20/21 04:25 Plt Clumps, EDTA Not Reportable 08/20/21 04:25 Large Platelets Rare 08/20/21 04:25 Giant Platelets Not Reportable 08/20/21 04:25 Platelet Satelliting Not Reportable 08/20/21 04:25 Plt Morphology Comment Not Reportable 08/20/21 04:25 RBC Morphology Not Reportable 08/20/21 04:25 Dimorphic RBCs Not Reportable 08/20/21 04:25 Polychromasia Not Reportable 08/20/21 04:25 Hypochromasia Not Reportable 08/20/21 04:25 Poikilocytosis Rare 08/20/21 04:25 Anisocytosis Rare 08/20/21 04:25 Microcytosis Not Reportable 08/20/21 04:25 Macrocytosis Not Reportable 08/20/21 04:25 Spherocytes Not Reportable 08/20/21 04:25 Pappenheimer Bodies Not Reportable 08/20/21 04:25 Sickle Cells Not Reportable 08/20/21 04:25 Target Cells Not Reportable 08/20/21 04:25 Tear Drop Cells Not Reportable 08/20/21 04:25 Ovalocytes Rare 08/20/21 04:25 Helmet Cells Not Reportable 08/20/21 04:25 Rai-Port Carbon Bodies Not Reportable 08/20/21 04:25 Chauvin Rings Not Reportable 08/20/21 04:25 [place] Cells Not Reportable 08/20/21 04:25 Bite Cells Not Reportable 08/20/21 04:25 Crenated Cell Not Reportable 08/20/21 04:25 Elliptocytes Not Reportable 08/20/21 04:25 Acanthocytes (Spur) Not Reportable 08/20/21 04:25 Rouleaux Not Reportable 08/20/21 04:25 Hemoglobin C Crystals Not Reportable 08/20/21 04:25 Schistocytes Not Reportable 08/20/21 04:25 Malaria parasites Not Reportable 08/20/21 04:25 Marco Bodies Not Reportable 08/20/21 04:25 Hem Pathologist Commnt No 08/20/21 04:25 PT 12.8 Sec. (12.2-14.9) 08/19/21 02:24 INR 0.87 (0.87-1.13) 08/19/21 02:24 APTT 20.0 Sec. (24.2-36.6) L 08/19/21 02:24 ABG pH 7.511 (7.320-7.450) H 08/22/21 10:16 POC ABG pCO2 30.1 mmHg (32.0-48.0) L 08/22/21 10:16 ABG pCO2 36.7 mm Hg 08/22/21 04:40 POC ABG pO2 109.5 mmHg (83-108) H 08/22/21 10:16 ABG pO2 109.8 mm Hg (80.0-90.0) H 08/22/21 04:40 POC ABG HCO3 23.5 08/22/21 10:16 ABG HCO3 25.1 mmol/L (20.0-26.0) 08/22/21 04:40 ABG O2 Saturation 98.2 (0-100) 08/22/21 10:16 ABG O2 Content 20.9 (0.0-44) 08/22/21 04:40 POC ABG Base Excess 1.2 08/22/21 10:16 ABG Base Excess 1.5 mmol/L (-2.0-3.0) 08/22/21 04:40 ABG Hemoglobin 12.0 (12.0-17.5) 08/22/21 10:16 ABG Oxyhemoglobin 96.8 (94-98) 08/22/21 10:16 ABG Carboxyhemoglobin 0.4 % (0.0-5.0) 08/22/21 04:40 ABG Methemoglobin 0.3 (0.0-1.5) 08/22/21 10:16 ABG Sodium Not Reportable 08/22/21 10:16 ABG Potassium Not Reportable 08/22/21 10:16 ABG Chloride Not Reportable 08/22/21 10:16 ABG Glucose Not Reportable 08/22/21 10:16 Oxyhemoglobin 97.8 % (95.0-99.0) 08/22/21 04:40 Carboxyhemoglobin 1.1 (0.5-1.5) 08/22/21 10:16 FiO2 30 % 08/22/21 04:40 FiO2 % 30.0 08/22/21 10:16 Sodium 140 mmol/L (137-145) 08/23/21 04:11 Potassium 3.6 mmol/L (3.6-5.0) 08/23/21 04:11 Chloride 101.7 mmol/L (98-107) 08/23/21 04:11 Carbon Dioxide 27 mmol/L (22-30) 08/23/21 04:11 Anion Gap 15 mmol/L 08/23/21 04:11 BUN 17 mg/dL (7-17) 08/23/21 04:11 Creatinine 0.6 mg/dL (0.6-1.2) 08/23/21 04:11 Estimated GFR > 60 ml/min 08/23/21 04:11 BUN/Creatinine Ratio 28 % 08/23/21 04:11 Glucose 148 mg/dL (65-100) H 08/23/21 04:11 POC Glucose 173 mg/dL (70-105) H 08/23/21 05:32 Calcium 8.7 mg/dL (8.4-10.2) 08/23/21 04:11 Phosphorus 2.90 mg/dL (2.5-4.5) 08/23/21 04:11 Magnesium 2.00 mg/dL (1.7-2.3) 08/23/21 04:11 Total Bilirubin 0.40 mg/dL (0.1-1.2) 08/20/21 04:25 AST 23 units/L (5-40) 08/20/21 04:25 ALT 13 units/L (7-56) 08/20/21 04:25 Alkaline Phosphatase 94 units/L (35-129) 08/20/21 04:25 Total Protein 7.3 g/dL (6.3-8.2) 08/20/21 04:25 Albumin 4.0 g/dL (3.9-5) 08/20/21 04:25 Albumin/Globulin Ratio 1.2 % 08/20/21 04:25 Triglycerides 109 mg/dL (2-149) 08/22/21 03:54 Arterial Blood Glucose Not Reportable 08/22/21 10:16 Blood Type A POSITIVE 08/21/21 15:10 Lewis/IV: Voiding Method Indwelling Catheter Active Medications - Current Medications Current Medications: Generic Name Dose Route Start Last Admin Trade Name Freq PRN Reason Stop Dose Admin Acetaminophen 650 mg 08/19/21 06:00 Acetaminophen 325 Mg Tab FEEDTUBE Q4H PRN Pain MILD(1-3)/Fever >100.5/SAEED Albuterol 2.5 mg 08/19/21 04:50 Albuterol 2.5 Mg/3 Ml Nebu IH Q3HRT PRN Shortness Of Breath Albuterol/Ipratropium 1 ampul 08/19/21 08:00 08/23/21 08:24 Ipratropium/Albuterol Sulfate 3 Ml Ampul.Neb IH 1 ampul Q6HRT WARD Administration Alprazolam 0.25 mg 08/19/21 06:00 Alprazolam 0.25 Mg Tab FEEDTUBE BID PRN Anxiety Buspirone HCl 10 mg 08/19/21 10:00 08/23/21 10:08 Buspirone 10 Mg Tab FEEDTUBE 10 mg BID WARD Administration Dextrose 50 ml 08/20/21 10:00 Dextrose 50% In Water (25gm) 50 Ml Syringe IV Q30MIN PRN Hypoglycemia Protocol Diphenhydramine HCl 25 mg 08/19/21 12:00 08/23/21 05:06 Diphenhydramine 50 Mg/Ml Vial IV 25 mg Q6H WARD Administration Famotidine 20 mg 08/19/21 10:00 08/23/21 10:07 Famotidine 20 Mg/2 Ml Inj IV 20 mg BID WARD Administration Fentanyl 50 mcg 08/23/21 11:28 Fentanyl 100 Mcg/2 Ml Inj IV Q10MIN PRN ANALGESIA Folic Acid 1 mg 08/19/21 10:00 08/23/21 10:08 Folic Acid 1 Mg Tab FEEDTUBE 1 mg QDAY WRAD Administration Heparin Sodium (Porcine) 5,000 unit 08/19/21 10:00 08/23/21 10:08 Heparin 5,000 Unit/1 Ml Vial SUB-Q 5,000 unit Q12HR WARD Administration Hydralazine HCl 10 mg 08/19/21 05:03 Hydralazine 20 Mg/1 Ml Inj IV Q6H PRN SBP >/=160; DBP >/=100 Propofol 1,000 mg in 100 mls @ 2.722 mls/hr 08/19/21 12:00 08/23/21 06:03 Diprivan 10 Mg/Ml IV 30 mcg/kg/min TITR WARD 16.329 mls/hr Administration Protocol 5 MCG/KG/MIN Fentanyl Citrate 2,000 mcg in 100 mls @ 2.125 mls/hr 08/23/21 12:00 Fentanyl Drip Premix IV TITR WARD Protocol 1 MCG/KG/HR Insulin Human Regular 0 units 08/20/21 12:00 08/23/21 05:47 Insulin Regular, Human 100 Units/1 Ml SUB-Q 2 units Q6H WARD Administration Protocol Levothyroxine Sodium 150 mcg 08/19/21 06:00 08/23/21 05:06 Levothyroxine 75 Mcg Tab FEEDTUBE 150 mcg DAILY@0600 WARD Administration Methylprednisolone Sodium Succinate 125 mg 08/19/21 08:00 08/23/21 05:06 Methylprednisolone Sod Succinate 125 Mg/2 Ml Inj IV 125 mg Q8HR WARD Administration Ondansetron HCl 4 mg 08/19/21 04:50 Ondansetron 4 Mg/2 Ml Inj IV Q8H PRN Nausea And Vomiting Senna 8.8 mg 08/23/21 22:00 Sennosides Oral Liqd 8.8 Mg/5 Ml Oral Liqd FEEDTUBE QHS WARD Sertraline HCl 25 mg 08/19/21 10:00 08/23/21 10:08 Sertraline 25 Mg Tab FEEDTUBE 25 mg QDAY WARD Administration Sodium Chloride 10 ml 08/19/21 10:00 08/23/21 10:09 Sodium Chloride 0.9% 10 Ml Flush Syringe IV 10 ml BID WARD Administration Sodium Chloride 10 ml 08/19/21 04:50 Sodium Chloride 0.9% 10 Ml Flush Syringe IV PRN PRN LINE FLUSH Thiamine HCl 100 mg 08/19/21 10:00 08/23/21 10:08 Thiamine 100 Mg Tab FEEDTUBE 100 mg QDAY WARD Administration Nutrition/Malnutrition Assess - Dietary Evaluation Nutrition/Malnutrition Findings: Nutrition Notes Start: 08/19/21 10:13 Freq: Status: Active Protocol: Document 08/20/21 14:58 ABRAHAM (Rec: 08/20/21 15:08 ABRAHAM [id number]) Nutrition Notes Initial or Follow up Brief Note Current Diagnosis Hypertension Other Pertinent Diagnosis Brent Angioedema, Myxedema, Hypothyroidsm, Hypokalemia, Psychosis. Current Diet TF-Jevity 1.2 Dieudonne @ 45 ml/hr ( from L 08/19). Height 4 ft 11 in Weight 90.718 kg [place] Body Weight (kg) 43.18 BMI 40.4 Weight change and time frame No body weight change reported in 1 day. Weight Status Morbidly Obese Subjective/Other Information RD consult for risk of malnutrition assessment, and routine F/U on TF tolerance. TF continues as prescribed, well tolerated. Pt is on Mechanical Ventilation, O2 saturation @ 100%, according to Physical Assessment History notes. Pt shows no signs of concern for risk of malnutrition at the time, according to Physical Assessment History notes. Percent of energy/protein needs met: Prescribed TF-Jevity 1.2 Dieudonne @ 45 ml/hr provides for energy/ protein needs (1,300 Kcal/60 g ) during LOS, 102% Kcal; 90% AA. #1 Nutrition Diagnosis Inadequate oral intake Diagnosis Progress(for reassessment Continues documentation) Is patient on ventilator? Yes Is Patient Ambulatory and/or Out of Bed No REE-([place]-St. Jeor-confined to bed) 1575.480 Kcal/Kg value to use for calculation 14 Approximate Energy Requirements Using 1270 kcal/Kg Calculation Used for Recommendations Kcal/kg Additional Notes Protein: 1-1.2 g/Kg AdjBW; 67- 80 g/day. Fluids: 1 ml/Kcal, or as per MD. Nutrition Intervention Nutrition Support: Continue Jevity 1.2 Dieudonne @ 45 ml/hr. Flush: 70 ml water Q 4 hr, or as per MD. Kcal 1,300 Protein (gm) 60 Carbohydrates (gm) 184 Fat (gm) 43 Fluid (mL) 874 Fiber (gm) 20 % RDI: 102% Kcal; 90% AA. Goal #1 Provide at least 75% of energy /protein needs through Enteral Feeding during LOS. Goal #2 Maintain body weight within +/ -3% of admission body weight during LOS. Follow-Up By: 08/27/21 Additional Comments Continue monitoring TF tolerance and BM. <CATRINA MONDRAGON - Last Filed: 08/24/21 07:34> Assessment and Plan Assessment and plan: I saw and evaluated the patient. I agree with the findings and the plan of care as documented in the Nurse Practitioner's~note, with the following corrections and additions. Hospitalist Physical - Constitutional Vitals: Temp Pulse Resp BP Pulse Ox 98.9 F 80 12 136/83 95 08/24/21 04:04 08/24/21 07:00 08/24/21 07:00 08/24/21 07:00 08/24/21 06:30 Results - Labs CBC & Chem 7: 08/23/21 04:11 08/23/21 04:11 Labs: Laboratory Last Values WBC 10.0 K/mm3 (4.5-11.0) 08/23/21 04:11 RBC 3.70 M/mm3 (3.65-5.03) 08/23/21 04:11 Hgb 12.0 gm/dl (10.1-14.3) 08/23/21 04:11 Hct 36.2 % (30.3-42.9) 08/23/21 04:11 MCV 98 fl (79-97) H 08/23/21 04:11 MCH 33 pg (28-32) H 08/23/21 04:11 MCHC 33 % (30-34) 08/23/21 04:11 RDW 16.1 % (13.2-15.2) H 08/23/21 04:11 Plt Count 233 K/mm3 (140-440) 08/23/21 04:11 Lymph # (Auto) Supervisor [employer] 08/19/21 02:24 Add Manual Diff Complete 08/20/21 04:25 Total Counted 100 08/20/21 04:25 Seg Neuts % (Manual) 83.0 % (40.0-70.0) H 08/20/21 04:25 Band Neutrophils % 0 % 08/20/21 04:25 Lymphocytes % (Manual) 14.0 % (13.4-35.0) 08/20/21 04:25 Reactive Lymphs % (Man) 0 % 08/20/21 04:25 Monocytes % (Manual) 3.0 % (0.0-7.3) 08/20/21 04:25 Eosinophils % (Manual) 0 % (0.0-4.3) 08/20/21 04:25 Basophils % (Manual) 0 % (0.0-1.8) 08/20/21 04:25 Metamyelocytes % 0 % 08/20/21 04:25 Myelocytes % 0 % 08/20/21 04:25 Promyelocytes % 0 % 08/20/21 04:25 Blast Cells % 0 % 08/20/21 04:25 Nucleated RBC % Not Reportable 08/20/21 04:25 Seg Neutrophils # Man 7.5 K/mm3 (1.8-7.7) 08/20/21 04:25 Band Neutrophils # 0.0 K/mm3 08/20/21 04:25 Lymphocytes # (Manual) 1.3 K/mm3 (1.2-5.4) 08/20/21 04:25 Abs React Lymphs (Man) 0.0 K/mm3 08/20/21 04:25 Monocytes # (Manual) 0.3 K/mm3 (0.0-0.8) 08/20/21 04:25 Eosinophils # (Manual) 0.0 K/mm3 (0.0-0.4) 08/20/21 04:25 Basophils # (Manual) 0.0 K/mm3 (0.0-0.1) 08/20/21 04:25 Metamyelocytes # 0.0 K/mm3 08/20/21 04:25 Myelocytes # 0.0 K/mm3 08/20/21 04:25 Promyelocytes # 0.0 K/mm3 08/20/21 04:25 Blast Cells # 0.0 K/mm3 08/20/21 04:25 WBC Morphology Not Reportable 08/20/21 04:25 Hypersegmented Neuts Not Reportable 08/20/21 04:25 Hyposegmented Neuts Not Reportable 08/20/21 04:25 Hypogranular Neuts Not Reportable 08/20/21 04:25 Smudge Cells Not Reportable 08/20/21 04:25 Toxic Granulation Not Reportable 08/20/21 04:25 Toxic Vacuolation Not Reportable 08/20/21 04:25 Dohle Bodies Not Reportable 08/20/21 04:25 Pelger-Huet Anomaly Not Reportable 08/20/21 04:25 Erik Rods Not Reportable 08/20/21 04:25 Platelet Estimate Consistent w auto 08/20/21 04:25 Clumped Platelets Not Reportable 08/20/21 04:25 Plt Clumps, EDTA Not Reportable 08/20/21 04:25 Large Platelets Rare 08/20/21 04:25 Giant Platelets Not Reportable 08/20/21 04:25 Platelet Satelliting Not Reportable 08/20/21 04:25 Plt Morphology Comment Not Reportable 08/20/21 04:25 RBC Morphology Not Reportable 08/20/21 04:25 Dimorphic RBCs Not Reportable 08/20/21 04:25 Polychromasia Not Reportable 08/20/21 04:25 Hypochromasia Not Reportable 08/20/21 04:25 Poikilocytosis Rare 08/20/21 04:25 Anisocytosis Rare 08/20/21 04:25 Microcytosis Not Reportable 08/20/21 04:25 Macrocytosis Not Reportable 08/20/21 04:25 Spherocytes Not Reportable 08/20/21 04:25 Pappenheimer Bodies Not Reportable 08/20/21 04:25 Sickle Cells Not Reportable 08/20/21 04:25 Target Cells Not Reportable 08/20/21 04:25 Tear Drop Cells Not Reportable 08/20/21 04:25 Ovalocytes Rare 08/20/21 04:25 Helmet Cells Not Reportable 08/20/21 04:25 Rai-Port Carbon Bodies Not Reportable 08/20/21 04:25 Chauvin Rings Not Reportable 08/20/21 04:25 [place] Cells Not Reportable 08/20/21 04:25 Bite Cells Not Reportable 08/20/21 04:25 Crenated Cell Not Reportable 08/20/21 04:25 Elliptocytes Not Reportable 08/20/21 04:25 Acanthocytes (Spur) Not Reportable 08/20/21 04:25 Rouleaux Not Reportable 08/20/21 04:25 Hemoglobin C Crystals Not Reportable 08/20/21 04:25 Schistocytes Not Reportable 08/20/21 04:25 Malaria parasites Not Reportable 08/20/21 04:25 Marco Bodies Not Reportable 08/20/21 04:25 Hem Pathologist Commnt No 08/20/21 04:25 PT 12.8 Sec. (12.2-14.9) 08/19/21 02:24 INR 0.87 (0.87-1.13) 08/19/21 02:24 APTT 20.0 Sec. (24.2-36.6) L 08/19/21 02:24 ABG pH 7.481 pH Units (7.350-7.450) H 08/24/21 06:00 POC ABG pCO2 30.1 mmHg (32.0-48.0) L 08/22/21 10:16 ABG pCO2 40.8 mm Hg 08/24/21 06:00 POC ABG pO2 109.5 mmHg (83-108) H 08/22/21 10:16 ABG pO2 95.8 mm Hg (80.0-90.0) H 08/24/21 06:00 POC ABG HCO3 23.5 08/22/21 10:16 ABG HCO3 29.8 mmol/L (20.0-26.0) H 08/24/21 06:00 ABG O2 Saturation 97.8 % (95.0-99.0) 08/24/21 06:00 ABG O2 Content 20.9 (0.0-44) 08/22/21 04:40 POC ABG Base Excess 1.2 08/22/21 10:16 ABG Base Excess 5.8 mmol/L (-2.0-3.0) H 08/24/21 06:00 ABG Hemoglobin 12.5 gm/dl (12.0-16.0) 08/24/21 06:00 ABG Oxyhemoglobin 96.8 (94-98) 08/22/21 10:16 ABG Carboxyhemoglobin 0.5 % (0.0-5.0) 08/24/21 06:00 ABG Methemoglobin 0.3 % (0.0-1.5) 08/24/21 06:00 ABG Sodium Not Reportable 08/22/21 10:16 ABG Potassium Not Reportable 08/22/21 10:16 ABG Chloride Not Reportable 08/22/21 10:16 ABG Glucose Not Reportable 08/22/21 10:16 Oxyhemoglobin 97.0 % (95.0-99.0) 08/24/21 06:00 Carboxyhemoglobin 1.1 (0.5-1.5) 08/22/21 10:16 FiO2 30 % 08/24/21 06:00 FiO2 % 30.0 08/22/21 10:16 Sodium 140 mmol/L (137-145) 08/23/21 04:11 Potassium 3.6 mmol/L (3.6-5.0) 08/23/21 04:11 Chloride 101.7 mmol/L (98-107) 08/23/21 04:11 Carbon Dioxide 27 mmol/L (22-30) 08/23/21 04:11 Anion Gap 15 mmol/L 08/23/21 04:11 BUN 17 mg/dL (7-17) 08/23/21 04:11 Creatinine 0.6 mg/dL (0.6-1.2) 08/23/21 04:11 Estimated GFR > 60 ml/min 08/23/21 04:11 BUN/Creatinine Ratio 28 % 08/23/21 04:11 Glucose 148 mg/dL (65-100) H 08/23/21 04:11 POC Glucose 159 mg/dL (70-105) H 08/24/21 05:20 Calcium 8.7 mg/dL (8.4-10.2) 08/23/21 04:11 Phosphorus 2.90 mg/dL (2.5-4.5) 08/23/21 04:11 Magnesium 2.00 mg/dL (1.7-2.3) 08/23/21 04:11 Total Bilirubin 0.40 mg/dL (0.1-1.2) 08/20/21 04:25 AST 23 units/L (5-40) 08/20/21 04:25 ALT 13 units/L (7-56) 08/20/21 04:25 Alkaline Phosphatase 94 units/L (35-129) 08/20/21 04:25 Total Protein 7.3 g/dL (6.3-8.2) 08/20/21 04:25 Albumin 4.0 g/dL (3.9-5) 08/20/21 04:25 Albumin/Globulin Ratio 1.2 % 08/20/21 04:25 Triglycerides 109 mg/dL (2-149) 08/22/21 03:54 Arterial Blood Glucose Not Reportable 08/22/21 10:16 Blood Type A POSITIVE 08/21/21 15:10 Lewis/IV: Voiding Method Indwelling Catheter Active Medications - Current Medications Current Medications: Generic Name Dose Route Start Last Admin Trade Name Freq PRN Reason Stop Dose Admin Acetaminophen 650 mg 08/19/21 06:00 Acetaminophen 325 Mg Tab FEEDTUBE Q4H PRN Pain MILD(1-3)/Fever >100.5/SAEED Albuterol 2.5 mg 08/19/21 04:50 Albuterol 2.5 Mg/3 Ml Nebu IH Q3HRT PRN Shortness Of Breath Albuterol/Ipratropium 1 ampul 05/05/22 08:00 08/24/21 02:04 Ipratropium/Albuterol Sulfate 3 Ml Ampul.Neb IH 1 ampul Q6HRT WARD Administration Alprazolam 0.25 mg 08/19/21 06:00 Alprazolam 0.25 Mg Tab FEEDTUBE BID PRN Anxiety Atorvastatin Calcium 10 mg 08/23/21 22:00 08/23/21 21:26 Atorvastatin 10 Mg Tab FEEDTUBE 10 mg QHS WARD Administration Buspirone HCl 10 mg 08/19/21 10:00 08/23/21 21:28 Buspirone 10 Mg Tab FEEDTUBE 10 mg BID WARD Administration Dextrose 50 ml 08/20/21 10:00 Dextrose 50% In Water (25gm) 50 Ml Syringe IV Q30MIN PRN Hypoglycemia Protocol Diphenhydramine HCl 25 mg 08/19/21 12:00 08/24/21 05:44 Diphenhydramine 50 Mg/Ml Vial IV 25 mg Q6H WARD Administration Famotidine 20 mg 08/19/21 10:00 08/23/21 21:27 Famotidine 20 Mg/2 Ml Inj IV 20 mg BID WARD Administration Fentanyl 50 mcg 08/23/21 11:28 Fentanyl 100 Mcg/2 Ml Inj IV Q10MIN PRN ANALGESIA Folic Acid 1 mg 08/19/21 10:00 08/23/21 10:08 Folic Acid 1 Mg Tab FEEDTUBE 1 mg QDAY WARD Administration Heparin Sodium (Porcine) 5,000 unit 08/19/21 10:00 08/23/21 21:26 Heparin 5,000 Unit/1 Ml Vial SUB-Q 5,000 unit Q12HR WARD Administration Hydralazine HCl 10 mg 08/19/21 05:03 Hydralazine 20 Mg/1 Ml Inj IV Q6H PRN SBP >/=160; DBP >/=100 Propofol 1,000 mg in 100 mls @ 2.722 mls/hr 08/19/21 12:00 08/24/21 06:18 Diprivan 10 Mg/Ml IV 30 mcg/kg/min TITR WARD 16.329 mls/hr Administration Protocol 5 MCG/KG/MIN Fentanyl Citrate 2,000 mcg in 100 mls @ 2.125 mls/hr 08/23/21 12:00 Fentanyl Drip Premix IV TITR WARD Protocol 1 MCG/KG/HR Insulin Human Regular 0 units 08/20/21 12:00 08/24/21 05:44 Insulin Regular, Human 100 Units/1 Ml SUB-Q 2 units Q6H WARD Administration Protocol Levothyroxine Sodium 150 mcg 08/19/21 06:00 08/24/21 05:44 Levothyroxine 75 Mcg Tab FEEDTUBE 150 mcg DAILY@0600 WARD Administration Methylprednisolone Sodium Succinate 125 mg 08/19/21 08:00 08/24/21 05:44 Methylprednisolone Sod Succinate 125 Mg/2 Ml Inj IV 125 mg Q8HR WARD Administration Ondansetron HCl 4 mg 08/19/21 04:50 Ondansetron 4 Mg/2 Ml Inj IV Q8H PRN Nausea And Vomiting Senna 8.8 mg 08/23/21 22:00 08/23/21 21:27 Sennosides Oral Liqd 8.8 Mg/5 Ml Oral Liqd FEEDTUBE 8.8 mg QHS WARD Administration Sertraline HCl 25 mg 08/19/21 10:00 08/23/21 10:08 Sertraline 25 Mg Tab FEEDTUBE 25 mg QDAY WARD Administration Sodium Chloride 10 ml 08/19/21 10:00 08/23/21 21:27 Sodium Chloride 0.9% 10 Ml Flush Syringe IV 10 ml BID WARD Administration Sodium Chloride 10 ml 08/19/21 04:50 Sodium Chloride 0.9% 10 Ml Flush Syringe IV PRN PRN LINE FLUSH Sucralfate 1 gm 08/23/21 18:00 08/24/21 05:44 Sucralfate 1 Gm Tab FEEDTUBE 1 gm Q6HR WARD Administration Thiamine HCl 100 mg 08/19/21 10:00 08/23/21 10:08 Thiamine 100 Mg Tab FEEDTUBE 100 mg QDAY WARD Administration Nutrition/Malnutrition Assess - Dietary Evaluation Nutrition/Malnutrition Findings: Nutrition Notes Start: 08/19/21 10:13 Freq: Status: Active Protocol: Document 08/23/21 15:04 LOGAN (Rec: 08/23/21 15:16 LOGAN [email or web address]) Nutrition Notes Initial or Follow up Reassessment Current Diagnosis Hypertension,Respiratory Failure Other Pertinent Diagnosis Angioedema, Depression Current Diet TF - Jevity 1.2 at 45ml/hr Labs/Tests Reviewed Pertinent Medications Solumedrol, Propofol at 16. 329ml/hr (provides 431 kcal), Thiamine, Folvite Height 4 ft 11 in Weight 74 kg [place] Body Weight (kg) 43.18 BMI 32.9 Weight change and time frame Current wt obtained from pt's RN Weight Status Obese Subjective/Other Information Pt remains on vent support and tolerating TF at goal rate. Percent of energy/protein needs met: 94% energy 70% pro Burn Absent Trauma Absent #1 Nutrition Diagnosis Inadequate oral intake Diagnosis Progress(for reassessment Continues documentation) Is patient on ventilator? Yes Is Patient Ambulatory and/or Out of Bed No REE-([facility]-confined to bed) 1375.068 Kcal/Kg value to use for calculation 17 Approximate Energy Requirements Using 1258 kcal/Kg Calculation Used for Recommendations Kcal/kg Additional Notes Pro needs 2g/kg IBW: 86g/day Fluid needs 1ml/kcal Nutrition Intervention Nutrition Support: Change TF formula to Glucerna 1.2 at 45ml/hr with 70ml water flush q4h. Kcal 1,296 Protein (gm) 65 Carbohydrates (gm) 124 Fat (gm) 65 Fluid (mL) 869 Fiber (gm) 17 Goal #1 TF tolerance Goal #2 TF to meet at least 75% energy and pro needs Follow-Up By: 08/25/21 Additional Comments F/U: TF formula change/ tolerance, vent status, propofol
--- NOTE | 2021-08-23 12:17 | Progress Note ---
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 Continue with IV steroids 2. Continue scheduled benadryl and pepcid 3. Trial of FFP given 4. Wean FiO2 for sats > 88% 5. Keep intubated on mechanical ventilator. No significant air leak, keep intubated. Will reassess tomorrow CCT 31 minutes Subjective Date of service: 08/23/21 Interval history: Remains sedated on mechanical ventilator. Still with significant tongue swelling though slight improvement noted.. Remain intubated. Leak test today showed no significant air leak again today Objective Vital Signs - 12hr 08/23/21 08/23/21 08/23/21 01:00 02:00 02:45 Temperature Pulse Rate 84 Pulse Rate [ 70 Bilateral] Pulse Rate [ From Monitor] Respiratory 15 Rate Respiratory 14 Rate [Bilateral ] Blood Pressure 143/87 128/83 O2 Sat by Pulse 98 99 Oximetry 08/23/21 08/23/21 08/23/21 03:00 03:40 04:00 Temperature 98.0 F Pulse Rate 70 70 67 Pulse Rate [ Bilateral] Pulse Rate [ 62 From Monitor] Respiratory 2 L 12 Rate Respiratory Rate [Bilateral ] Blood Pressure 128/83 128/83 112/61 O2 Sat by Pulse 100 100 100 Oximetry 08/23/21 08/23/21 08/23/21 05:00 06:00 07:00 Temperature Pulse Rate 58 L 56 L 67 Pulse Rate [ Bilateral] Pulse Rate [ From Monitor] Respiratory Rate Respiratory Rate [Bilateral ] Blood Pressure 103/64 112/68 155/86 O2 Sat by Pulse 98 98 100 Oximetry 08/23/21 08/23/21 08/23/21 07:20 08:00 08:05 Temperature 97.9 F Pulse Rate 58 L 57 L Pulse Rate [ Bilateral] Pulse Rate [ 57 L From Monitor] Respiratory 12 Rate Respiratory Rate [Bilateral ] Blood Pressure 152/82 O2 Sat by Pulse 99 Oximetry 08/23/21 08/23/21 08/23/21 08:24 09:00 10:00 Temperature Pulse Rate 61 68 75 Pulse Rate [ 59 L Bilateral] Pulse Rate [ From Monitor] Respiratory 15 Rate Respiratory 12 Rate [Bilateral ] Blood Pressure 145/81 142/88 116/72 O2 Sat by Pulse 100 100 100 Oximetry 08/23/21 08/23/21 08/23/21 11:00 11:25 11:48 Temperature 98.0 F Pulse Rate 74 70 Pulse Rate [ Bilateral] Pulse Rate [ From Monitor] Respiratory 17 Rate Respiratory Rate [Bilateral ] Blood Pressure 181/96 134/79 O2 Sat by Pulse 100 98 Oximetry Constitutional: no acute distress, other (Sedated) ENT: oropharynx moist, other (Orally intubated significant swelling of the tongue with protrusion) Neck: supple, no lymphadenopathy Effort: other (Supported on ventilator) Ascultation: Bilateral: clear Cardiovascular: regular rate and rhythm Gastrointestinal: normoactive bowel sounds, soft, non-tender, other (Obese) Extremities: no cyanosis, no edema, pink and warm Neurologic: other (Sedated) Psychiatric: other (Sedated) CBC and BMP: 08/23/21 04:11 08/23/21 04:11 ABG, PT/INR, D-dimer: ABG ABG pH 7.511 (7.320-7.450) H 08/22/21 10:16 POC ABG pCO2 30.1 mmHg (32.0-48.0) L 08/22/21 10:16 ABG pCO2 36.7 mm Hg 08/22/21 04:40 POC ABG pO2 109.5 mmHg (83-108) H 08/22/21 10:16 ABG pO2 109.8 mm Hg (80.0-90.0) H 08/22/21 04:40 POC ABG HCO3 23.5 08/22/21 10:16 ABG O2 Saturation 98.2 (0-100) 08/22/21 10:16 PT/INR, D-dimer PT 12.8 Sec. (12.2-14.9) 08/19/21 02:24 INR 0.87 (0.87-1.13) 08/19/21 02:24 Abnormal lab findings: Abnormal Labs 08/19/21 08/19/21 08/19/21 02:24 02:24 02:24 WBC 13.9 H RBC MCV 98 H MCH 33 H RDW 15.7 H Seg Neuts % (Manual) Lymphocytes % (Manual) 52.0 H Lymphocytes # (Manual) 7.2 H APTT 20.0 L ABG pH POC ABG pCO2 POC ABG pO2 ABG pO2 ABG O2 Saturation ABG Base Excess ABG Hemoglobin Potassium 3.3 L Chloride Carbon Dioxide 20 L Glucose 143 H POC Glucose Calcium Total Protein 8.3 H 08/19/21 08/19/21 08/19/21 06:15 10:20 11:10 WBC RBC MCV MCH RDW Seg Neuts % (Manual) Lymphocytes % (Manual) Lymphocytes # (Manual) APTT ABG pH 7.465 H 7.503 H POC ABG pCO2 POC ABG pO2 ABG pO2 177.7 H 90.5 H ABG O2 Saturation 99.2 H ABG Base Excess ABG Hemoglobin Potassium Chloride Carbon Dioxide Glucose POC Glucose 171 H Calcium Total Protein 08/19/21 08/20/21 08/20/21 16:33 00:03 04:25 WBC RBC MCV 98 H MCH 33 H RDW 15.9 H Seg Neuts % (Manual) 83.0 H Lymphocytes % (Manual) Lymphocytes # (Manual) APTT ABG pH POC ABG pCO2 POC ABG pO2 ABG pO2 ABG O2 Saturation ABG Base Excess ABG Hemoglobin Potassium Chloride Carbon Dioxide Glucose POC Glucose 179 H 133 H Calcium Total Protein 08/20/21 08/20/21 08/20/21 04:25 04:30 05:39 WBC RBC MCV MCH RDW Seg Neuts % (Manual) Lymphocytes % (Manual) Lymphocytes # (Manual) APTT ABG pH POC ABG pCO2 POC ABG pO2 ABG pO2 95.5 H ABG O2 Saturation ABG Base Excess -2.2 L ABG Hemoglobin Potassium Chloride Carbon Dioxide 21 L Glucose 143 H POC Glucose 168 H Calcium 8.2 L Total Protein 08/20/21 08/20/21 08/21/21 12:04 16:38 00:12 WBC RBC MCV MCH RDW Seg Neuts % (Manual) Lymphocytes % (Manual) Lymphocytes # (Manual) APTT ABG pH POC ABG pCO2 POC ABG pO2 ABG pO2 ABG O2 Saturation ABG Base Excess ABG Hemoglobin Potassium Chloride Carbon Dioxide Glucose POC Glucose 151 H 135 H 123 H Calcium Total Protein 08/21/21 08/21/21 08/21/21 04:58 04:58 04:59 WBC RBC 3.64 L MCV 100 H MCH RDW 16.4 H Seg Neuts % (Manual) Lymphocytes % (Manual) Lymphocytes # (Manual) APTT ABG pH POC ABG pCO2 POC ABG pO2 ABG pO2 ABG O2 Saturation ABG Base Excess -2.6 L ABG Hemoglobin 11.6 L Potassium 3.5 L Chloride 109.5 H Carbon Dioxide 19 L Glucose 159 H POC Glucose Calcium 8.3 L Total Protein 08/21/21 08/21/21 08/21/21 05:22 11:21 16:29 WBC RBC MCV MCH RDW Seg Neuts % (Manual) Lymphocytes % (Manual) Lymphocytes # (Manual) APTT ABG pH POC ABG pCO2 POC ABG pO2 ABG pO2 ABG O2 Saturation ABG Base Excess ABG Hemoglobin Potassium Chloride Carbon Dioxide Glucose POC Glucose 143 H 133 H 122 H Calcium Total Protein 08/22/21 08/22/21 08/22/21 00:03 03:54 03:54 WBC RBC 3.53 L MCV 100 H MCH 33 H RDW 16.7 H Seg Neuts % (Manual) Lymphocytes % (Manual) Lymphocytes # (Manual) APTT ABG pH POC ABG pCO2 POC ABG pO2 ABG pO2 ABG O2 Saturation ABG Base Excess ABG Hemoglobin Potassium Chloride 107.5 H Carbon Dioxide Glucose 123 H POC Glucose 132 H Calcium Total Protein 08/22/21 08/22/21 08/22/21 04:40 06:08 10:16 WBC RBC MCV MCH RDW Seg Neuts % (Manual) Lymphocytes % (Manual) Lymphocytes # (Manual) APTT ABG pH 7.454 H 7.511 H POC ABG pCO2 30.1 L POC ABG pO2 109.5 H ABG pO2 109.8 H ABG O2 Saturation ABG Base Excess ABG Hemoglobin Potassium Chloride Carbon Dioxide Glucose POC Glucose 137 H Calcium Total Protein 08/22/21 08/22/21 08/22/21 10:27 10:27 11:13 WBC RBC MCV 99 H MCH RDW 16.6 H Seg Neuts % (Manual) Lymphocytes % (Manual) Lymphocytes # (Manual) APTT ABG pH POC ABG pCO2 POC ABG pO2 ABG pO2 ABG O2 Saturation ABG Base Excess ABG Hemoglobin Potassium Chloride Carbon Dioxide Glucose 129 H POC Glucose 125 H Calcium Total Protein 08/22/21 08/23/21 08/23/21 23:39 04:11 04:11 WBC RBC MCV 98 H MCH 33 H RDW 16.1 H Seg Neuts % (Manual) Lymphocytes % (Manual) Lymphocytes # (Manual) APTT ABG pH POC ABG pCO2 POC ABG pO2 ABG pO2 ABG O2 Saturation ABG Base Excess ABG Hemoglobin Potassium Chloride Carbon Dioxide Glucose 148 H POC Glucose 117 H Calcium Total Protein 08/23/21 05:32 WBC RBC MCV MCH RDW Seg Neuts % (Manual) Lymphocytes % (Manual) Lymphocytes # (Manual) APTT ABG pH POC ABG pCO2 POC ABG pO2 ABG pO2 ABG O2 Saturation ABG Base Excess ABG Hemoglobin Potassium Chloride Carbon Dioxide Glucose POC Glucose 173 H Calcium Total Protein
[2021-08-23] MEDS: SUCRALFATE 1 GM TAB FEEDTUBE SCH (18:35)
[2021-08-23] MEDS: SENNOSIDES ORAL LIQD 8.8 MG/5 ML ORAL LIQD FEEDTUBE SCH (21:27)
[2021-08-24] MEDS: diphenhydrAMINE 50 MG/ML VIAL IV SCH ×2 (00:49→05:44)
[2021-08-24] MEDS: INSULIN REGULAR, HUMAN 100 UNITS/1 ML SUB-Q SCH ×4 (00:49→18:09)
[2021-08-24] MEDS: SUCRALFATE 1 GM TAB FEEDTUBE SCH ×4 (00:49→18:08)
[2021-08-24] MEDS: IPRATROPIUM/ALBUTEROL SULFATE 3 ML AMPUL.NEB IH SCH ×4 (02:04→20:29)
[2021-08-24] MEDS: LEVOTHYROXINE 75 MCG TAB FEEDTUBE SCH (05:44)
[2021-08-24] MEDS: methylPREDNISolone Sod Succinate 125 MG/2 ML INJ IV SCH (05:44)
[2021-08-24 06:13] LABS: ABG Base Excess 5.8 mmol/L (-2.0-3.0); ABG HCO3 29.8 mmol/L (20.0-26.0); ABG Methemoglobin 0.3 % (0.0-1.5); ABG Oxygen Saturation 97.8 % (95.0-99.0); ABG PCO2 40.8 mm Hg; ABG PH 7.481 pH Units (7.350-7.450); ABG PO2 95.8 mm Hg (80.0-90.0)
[2021-08-24] MEDS: HEPARIN 5,000 UNIT/1 ML VIAL SUB-Q SCH ×2 (09:30→21:28)
[2021-08-24] MEDS: MULTIVITAMIN / MINERAL ORAL LIQUID 15 ML FEEDTUBE SCH (09:30)
[2021-08-24] MEDS: FOLIC ACID 1 MG TAB FEEDTUBE SCH (09:30)
[2021-08-24] MEDS: busPIRone 10 MG TAB FEEDTUBE SCH ×2 (09:30→21:27)
[2021-08-24] MEDS: THIAMINE 100 MG TAB FEEDTUBE SCH (09:30)
[2021-08-24] MEDS: SERTRALINE 25 MG TAB FEEDTUBE SCH (09:30)
[2021-08-24] MEDS: FAMOTIDINE 20 MG/2 ML INJ IV SCH ×2 (09:30→21:27)
[2021-08-24] MEDS ORDERED: diphenhydrAMINE 50 MG/ML VIAL IV PRN (11:40)
--- NOTE | 2021-08-24 12:05 | Progress Note ---
<DELICIA LOYA - Last Filed: 08/24/21 16:24> Assessment and Plan Assessment and plan: This is a 76-year-old female with hypertension, psychiatric illness, and hypothyroidism admitted with angioedema and intubated for airway protection Hospital Course to Date: 08/19: Patient started on tube feedings, potassium repleted, started on Benadryl and propofol for sedation. SSI started. Air leak present today however due to swelling of the tongue we will hold off extubation. CCM plans to try FFP in the a.m. if swelling not better. 08/20: Angioedema slightly better so we will hold off FFP today. Updated son at bedside but he did not know what medication she was taking and states that she has not had angioedema in the past. Patient still remains on Versed and propofol. Was given 500 mL bolus overnight for hypotension and will repeat for hypotension. 08/21: Leak test today at bedside with RT shows no leak and will give FFP today. Tongue looks a bit smaller today but given no leak, CCM will not extubate today. Sedated with propofol and versed. Son at bedside today. 08/22: RT performed leak test in the AM and stated there was a leak noted and placed the patient on CPAP. She was sedated on versed at 4 and propofol at 30 but these are off for CPAP. Will removed lewis. Received FFP yesterday. Angioedema is improved. Leak test performed again with Dr. Bailey and no leak audible. Switched back to AC and sedation restarted. 08/23: Remains on the vent and sedated. Cuff leak assessed again today by CCM, still no significant air leak noted. Per CCM keep patient intubated and sedated and continue IV steroids and histamine therapy for now. Fentanyl gtt added, plan to wean off versed for RASS goal of 0 to -1. 08/24: Arousable and appropriate on the vent and on low dose sedation. No cuff leak again today per RT. D/W CCM plan for CT neck w/o contrast for further eval. If CT neck normal, PSV trial and possible extubation tomorrow. Assessment and Plan Neuro: Sedated h/o depression -Restart home thiamine, multivitamin, Zoloft, BuSpar and as needed Xanax -On low dose propofol -Easily arousable, following commands and appropriate -RASS goal 0 to -1 -Avoid delirium -Reorientation as needed -Maintain sleep-wake cycle -As needed analgesia Cardiac:Hypertension -BP stable -resume home antihypertenisve regimen when available and if needed -Continue blood pressure monitor per protocol -Hydralazine as needed for SBP above 160 Respiratory: Acute hypoxic respiratory failure 2/2 angioedema -Intubated in the emergency department on 08/19 for airway protection -Vent setting: PRVC-30%,6,12,450 -No ABG today -CCM consulted, appreciate recommendations -Still no cuff leak today, plan for CT neck w/o con for further -Per [facility] if Ct neck normal, plan for PSV trial and possible extubation tomorrow -VAP bundle addressed -Aspiration precaution HOB above 30 -Daily SBT and SAT trials as tolerated -PRN ABG and CXR per [facility] -Continue SPO2 monitoring for SPO2 goal above 92% Endo: Hyperglycemia h/o hypothyroidism -Continue Q6hrs accucheck with SSI -Avoid hypoglycemia -While critically ill target blood glucose of 140-180 -continue synthroid #GI/DVT Prophylaxis -PPI- Pepcid -Heparin SubQ -SCDs to bilateral lower extremities while in bed The high probability of a clinically significant, sudden or life threatening deterioration of the [Respi, Endo] system(s) required my full and direct attention, intervention and personal management. The aggregate critical care time was [60] minutes. This time is in addition to time spent performing reported procedures but includes the following: [x] Data Review and interpretation [x] Patient assessment and monitoring of vital signs [x] Documentation [x] Medication orders and management Disposition Plan: ICU Total Time Spent with Patient (Minutes): 60 History Interval history: Patient seen and examined at the bedside. Remains on the vent and on propofol gtt, RASS -1. Easily arousable, following commands and appropriate. CARMEN overnight. Hospitalist Physical - Physical exam Narrative exam: General appearance: Present: no acute distress, well-nourished, obese, other (Intubated and sedated) - EENT Eyes: Present: PERRL - Neck Neck: Present: normal ROM - Respiratory Respiratory effort: normal Respiratory: bilateral: diminished - Cardiovascular Rhythm: regular Heart Sounds: Present: S1 & S2 - Extremities Extremities: no ischemia, pulses intact, pulses symmetrical Extremity abnormal: edema - Peripheral Assessment Generalized Edema Type: Non-pitting Edema Degree: 1+ Capillary Refill: < 3 seconds Skin Temperature: Warm Peripheral Pulses: within normal limits - Abdominal General gastrointestinal: soft, non-distended, normal bowel sounds - Integumentary Integumentary: Present: warm, dry - Psychiatric Psychiatric: other (Intubated and sedated) - Neurologic Neurologic: moves all extremities, other (Intubated and sedated) - Allied Health Allied health notes reviewed: nursing, case management - Constitutional Vitals: Temp Pulse Resp BP Pulse Ox 97.6 F 82 16 125/78 98 08/24/21 11:54 08/24/21 11:51 08/24/21 11:51 08/24/21 11:51 08/24/21 11:51 Results - Labs CBC & Chem 7: 08/23/21 04:11 08/23/21 04:11 Labs: Laboratory Last Values WBC 10.0 K/mm3 (4.5-11.0) 08/23/21 04:11 RBC 3.70 M/mm3 (3.65-5.03) 08/23/21 04:11 Hgb 12.0 gm/dl (10.1-14.3) 08/23/21 04:11 Hct 36.2 % (30.3-42.9) 08/23/21 04:11 MCV 98 fl (79-97) H 08/23/21 04:11 MCH 33 pg (28-32) H 08/23/21 04:11 MCHC 33 % (30-34) 08/23/21 04:11 RDW 16.1 % (13.2-15.2) H 08/23/21 04:11 Plt Count 233 K/mm3 (140-440) 08/23/21 04:11 Lymph # (Auto) Manager Database Administration 08/19/21 02:24 Add Manual Diff Complete 08/20/21 04:25 Total Counted 100 08/20/21 04:25 Seg Neuts % (Manual) 83.0 % (40.0-70.0) H 08/20/21 04:25 Band Neutrophils % 0 % 08/20/21 04:25 Lymphocytes % (Manual) 14.0 % (13.4-35.0) 08/20/21 04:25 Reactive Lymphs % (Man) 0 % 08/20/21 04:25 Monocytes % (Manual) 3.0 % (0.0-7.3) 08/20/21 04:25 Eosinophils % (Manual) 0 % (0.0-4.3) 08/20/21 04:25 Basophils % (Manual) 0 % (0.0-1.8) 08/20/21 04:25 Metamyelocytes % 0 % 08/20/21 04:25 Myelocytes % 0 % 08/20/21 04:25 Promyelocytes % 0 % 08/20/21 04:25 Blast Cells % 0 % 08/20/21 04:25 Nucleated RBC % Not Reportable 08/20/21 04:25 Seg Neutrophils # Man 7.5 K/mm3 (1.8-7.7) 08/20/21 04:25 Band Neutrophils # 0.0 K/mm3 08/20/21 04:25 Lymphocytes # (Manual) 1.3 K/mm3 (1.2-5.4) 08/20/21 04:25 Abs React Lymphs (Man) 0.0 K/mm3 08/20/21 04:25 Monocytes # (Manual) 0.3 K/mm3 (0.0-0.8) 08/20/21 04:25 Eosinophils # (Manual) 0.0 K/mm3 (0.0-0.4) 08/20/21 04:25 Basophils # (Manual) 0.0 K/mm3 (0.0-0.1) 08/20/21 04:25 Metamyelocytes # 0.0 K/mm3 08/20/21 04:25 Myelocytes # 0.0 K/mm3 08/20/21 04:25 Promyelocytes # 0.0 K/mm3 08/20/21 04:25 Blast Cells # 0.0 K/mm3 08/20/21 04:25 WBC Morphology Not Reportable 08/20/21 04:25 Hypersegmented Neuts Not Reportable 08/20/21 04:25 Hyposegmented Neuts Not Reportable 08/20/21 04:25 Hypogranular Neuts Not Reportable 08/20/21 04:25 Smudge Cells Not Reportable 08/20/21 04:25 Toxic Granulation Not Reportable 08/20/21 04:25 Toxic Vacuolation Not Reportable 08/20/21 04:25 Dohle Bodies Not Reportable 08/20/21 04:25 Pelger-Huet Anomaly Not Reportable 08/20/21 04:25 Erik Rods Not Reportable 08/20/21 04:25 Platelet Estimate Consistent w auto 08/20/21 04:25 Clumped Platelets Not Reportable 08/20/21 04:25 Plt Clumps, EDTA Not Reportable 08/20/21 04:25 Large Platelets Rare 08/20/21 04:25 Giant Platelets Not Reportable 08/20/21 04:25 Platelet Satelliting Not Reportable 08/20/21 04:25 Plt Morphology Comment Not Reportable 08/20/21 04:25 RBC Morphology Not Reportable 08/20/21 04:25 Dimorphic RBCs Not Reportable 08/20/21 04:25 Polychromasia Not Reportable 08/20/21 04:25 Hypochromasia Not Reportable 08/20/21 04:25 Poikilocytosis Rare 08/20/21 04:25 Anisocytosis Rare 08/20/21 04:25 Microcytosis Not Reportable 08/20/21 04:25 Macrocytosis Not Reportable 08/20/21 04:25 Spherocytes Not Reportable 08/20/21 04:25 Pappenheimer Bodies Not Reportable 08/20/21 04:25 Sickle Cells Not Reportable 08/20/21 04:25 Target Cells Not Reportable 08/20/21 04:25 Tear Drop Cells Not Reportable 08/20/21 04:25 Ovalocytes Rare 08/20/21 04:25 Helmet Cells Not Reportable 08/20/21 04:25 [place] Bodies Not Reportable 08/20/21 04:25 [place] Rings Not Reportable 08/20/21 04:25 Caprice Cells Not Reportable 08/20/21 04:25 Bite Cells Not Reportable 08/20/21 04:25 Crenated Cell Not Reportable 08/20/21 04:25 Elliptocytes Not Reportable 08/20/21 04:25 Acanthocytes (Spur) Not Reportable 08/20/21 04:25 Rouleaux Not Reportable 08/20/21 04:25 Hemoglobin C Crystals Not Reportable 08/20/21 04:25 Schistocytes Not Reportable 08/20/21 04:25 Malaria parasites Not Reportable 08/20/21 04:25 Marco Bodies Not Reportable 08/20/21 04:25 Hem Pathologist Commnt No 08/20/21 04:25 PT 12.8 Sec. (12.2-14.9) 08/19/21 02:24 INR 0.87 (0.87-1.13) 08/19/21 02:24 APTT 20.0 Sec. (24.2-36.6) L 08/19/21 02:24 ABG pH 7.481 pH Units (7.350-7.450) H 08/24/21 06:00 POC ABG pCO2 30.1 mmHg (32.0-48.0) L 08/22/21 10:16 ABG pCO2 40.8 mm Hg 08/24/21 06:00 POC ABG pO2 109.5 mmHg (83-108) H 08/22/21 10:16 ABG pO2 95.8 mm Hg (80.0-90.0) H 08/24/21 06:00 POC ABG HCO3 23.5 08/22/21 10:16 ABG HCO3 29.8 mmol/L (20.0-26.0) H 08/24/21 06:00 ABG O2 Saturation 97.8 % (95.0-99.0) 08/24/21 06:00 ABG O2 Content 20.9 (0.0-44) 08/22/21 04:40 POC ABG Base Excess 1.2 08/22/21 10:16 ABG Base Excess 5.8 mmol/L (-2.0-3.0) H 08/24/21 06:00 ABG Hemoglobin 12.5 gm/dl (12.0-16.0) 08/24/21 06:00 ABG Oxyhemoglobin 96.8 (94-98) 08/22/21 10:16 ABG Carboxyhemoglobin 0.5 % (0.0-5.0) 08/24/21 06:00 ABG Methemoglobin 0.3 % (0.0-1.5) 08/24/21 06:00 ABG Sodium Not Reportable 08/22/21 10:16 ABG Potassium Not Reportable 08/22/21 10:16 ABG Chloride Not Reportable 08/22/21 10:16 ABG Glucose Not Reportable 08/22/21 10:16 Oxyhemoglobin 97.0 % (95.0-99.0) 08/24/21 06:00 Carboxyhemoglobin 1.1 (0.5-1.5) 08/22/21 10:16 FiO2 30 % 08/24/21 06:00 FiO2 % 30.0 08/22/21 10:16 Sodium 140 mmol/L (137-145) 08/23/21 04:11 Potassium 3.6 mmol/L (3.6-5.0) 08/23/21 04:11 Chloride 101.7 mmol/L (98-107) 08/23/21 04:11 Carbon Dioxide 27 mmol/L (22-30) 08/23/21 04:11 Anion Gap 15 mmol/L 08/23/21 04:11 BUN 17 mg/dL (7-17) 08/23/21 04:11 Creatinine 0.6 mg/dL (0.6-1.2) 08/23/21 04:11 Estimated GFR > 60 ml/min 08/23/21 04:11 BUN/Creatinine Ratio 28 % 08/23/21 04:11 Glucose 148 mg/dL (65-100) H 08/23/21 04:11 POC Glucose 159 mg/dL (70-105) H 08/24/21 05:20 Calcium 8.7 mg/dL (8.4-10.2) 08/23/21 04:11 Phosphorus 2.90 mg/dL (2.5-4.5) 08/23/21 04:11 Magnesium 2.00 mg/dL (1.7-2.3) 08/23/21 04:11 Total Bilirubin 0.40 mg/dL (0.1-1.2) 08/20/21 04:25 AST 23 units/L (5-40) 08/20/21 04:25 ALT 13 units/L (7-56) 08/20/21 04:25 Alkaline Phosphatase 94 units/L (35-129) 08/20/21 04:25 Total Protein 7.3 g/dL (6.3-8.2) 08/20/21 04:25 Albumin 4.0 g/dL (3.9-5) 08/20/21 04:25 Albumin/Globulin Ratio 1.2 % 08/20/21 04:25 Triglycerides 109 mg/dL (2-149) 08/22/21 03:54 Arterial Blood Glucose Not Reportable 08/22/21 10:16 Blood Type A POSITIVE 08/21/21 15:10 Lewis/IV: Voiding Method Indwelling Catheter Active Medications - Current Medications Current Medications: Generic Name Dose Route Start Last Admin Trade Name Freq PRN Reason Stop Dose Admin Acetaminophen 650 mg 08/19/21 06:00 Acetaminophen 325 Mg Tab FEEDTUBE Q4H PRN Pain MILD(1-3)/Fever >100.5/SAEED Albuterol 2.5 mg 08/19/21 04:50 Albuterol 2.5 Mg/3 Ml Nebu IH Q3HRT PRN Shortness Of Breath Albuterol/Ipratropium 1 ampul 08/19/21 08:00 08/24/21 08:37 Ipratropium/Albuterol Sulfate 3 Ml Ampul.Neb IH 1 ampul Q6HRT WARD Administration Alprazolam 0.25 mg 08/19/21 06:00 Alprazolam 0.25 Mg Tab FEEDTUBE BID PRN Anxiety Atorvastatin Calcium 10 mg 08/23/21 22:00 08/23/21 21:26 Atorvastatin 10 Mg Tab FEEDTUBE 10 mg QHS WARD Administration Buspirone HCl 10 mg 08/19/21 10:00 08/24/21 09:30 Buspirone 10 Mg Tab FEEDTUBE 10 mg BID WARD Administration Dextrose 50 ml 08/20/21 10:00 Dextrose 50% In Water (25gm) 50 Ml Syringe IV Q30MIN PRN Hypoglycemia Protocol Diphenhydramine HCl 25 mg 08/24/21 11:40 Diphenhydramine 50 Mg/Ml Vial IV Q6H PRN ANGIOEDEMA Famotidine 20 mg 08/19/21 10:00 08/24/21 09:30 Famotidine 20 Mg/2 Ml Inj IV 20 mg BID WARD Administration Fentanyl 50 mcg 08/23/21 11:28 Fentanyl 100 Mcg/2 Ml Inj IV Q10MIN PRN ANALGESIA Folic Acid 1 mg 08/19/21 10:00 08/24/21 09:30 Folic Acid 1 Mg Tab FEEDTUBE 1 mg QDAY WARD Administration Heparin Sodium (Porcine) 5,000 unit 08/19/21 10:00 08/24/21 09:30 Heparin 5,000 Unit/1 Ml Vial SUB-Q 5,000 unit Q12HR WARD Administration Hydralazine HCl 10 mg 08/19/21 05:03 Hydralazine 20 Mg/1 Ml Inj IV Q6H PRN SBP >/=160; DBP >/=100 Propofol 1,000 mg in 100 mls @ 2.722 mls/hr 08/19/21 12:00 08/24/21 10:06 Diprivan 10 Mg/Ml IV 25 mcg/kg/min TITR WARD 13.608 mls/hr Titration Protocol 5 MCG/KG/MIN Fentanyl Citrate 2,000 mcg in 100 mls @ 2.125 mls/hr 08/23/21 12:00 Fentanyl Drip Premix IV TITR WARD Protocol 1 MCG/KG/HR Insulin Human Regular 0 units 08/20/21 12:00 08/24/21 05:44 Insulin Regular, Human 100 Units/1 Ml SUB-Q 2 units Q6H WARD Administration Protocol Levothyroxine Sodium 150 mcg 08/19/21 06:00 08/24/21 05:44 Levothyroxine 75 Mcg Tab FEEDTUBE 150 mcg DAILY@0600 WARD Administration Ondansetron HCl 4 mg 08/19/21 04:50 Ondansetron 4 Mg/2 Ml Inj IV Q8H PRN Nausea And Vomiting Senna 8.8 mg 08/23/21 22:00 08/23/21 21:27 Sennosides Oral Liqd 8.8 Mg/5 Ml Oral Liqd FEEDTUBE 8.8 mg QHS WARD Administration Sertraline HCl 25 mg 08/19/21 10:00 08/24/21 09:30 Sertraline 25 Mg Tab FEEDTUBE 25 mg QDAY WARD Administration Sodium Chloride 10 ml 08/19/21 10:00 08/24/21 09:31 Sodium Chloride 0.9% 10 Ml Flush Syringe IV 10 ml BID WARD Administration Sodium Chloride 10 ml 08/19/21 04:50 Sodium Chloride 0.9% 10 Ml Flush Syringe IV PRN PRN LINE FLUSH Sucralfate 1 gm 08/23/21 18:00 08/24/21 05:44 Sucralfate 1 Gm Tab FEEDTUBE 1 gm Q6HR WARD Administration Thiamine HCl 100 mg 08/19/21 10:00 08/24/21 09:30 Thiamine 100 Mg Tab FEEDTUBE 100 mg QDAY WARD Administration Nutrition/Malnutrition Assess - Dietary Evaluation Nutrition/Malnutrition Findings: Nutrition Notes Start: 08/19/21 10:13 Freq: Status: Active Protocol: Document 08/23/21 15:04 LOGAN (Rec: 08/23/21 15:16 LOGAN [email or web address]) Nutrition Notes Initial or Follow up Reassessment Current Diagnosis Hypertension,Respiratory Failure Other Pertinent Diagnosis Angioedema, Depression Current Diet TF - Jevity 1.2 at 45ml/hr Labs/Tests Reviewed Pertinent Medications Solumedrol, Propofol at 16. 329ml/hr (provides 431 kcal), Thiamine, Folvite Height 4 ft 11 in Weight 74 kg [place] Body Weight (kg) 43.18 BMI 32.9 Weight change and time frame Current wt obtained from pt's RN Weight Status Obese Subjective/Other Information Pt remains on vent support and tolerating TF at goal rate. Percent of energy/protein needs met: 94% energy 70% pro Burn Absent Trauma Absent #1 Nutrition Diagnosis Inadequate oral intake Diagnosis Progress(for reassessment Continues documentation) Is patient on ventilator? Yes Is Patient Ambulatory and/or Out of Bed No REE-([facility]-confined to bed) 1375.068 Kcal/Kg value to use for calculation 17 Approximate Energy Requirements Using 1258 kcal/Kg Calculation Used for Recommendations Kcal/kg Additional Notes Pro needs 2g/kg IBW: 86g/day Fluid needs 1ml/kcal Nutrition Intervention Nutrition Support: Change TF formula to Glucerna 1.2 at 45ml/hr with 70ml water flush q4h. Kcal 1,296 Protein (gm) 65 Carbohydrates (gm) 124 Fat (gm) 65 Fluid (mL) 869 Fiber (gm) 17 Goal #1 TF tolerance Goal #2 TF to meet at least 75% energy and pro needs Follow-Up By: 08/25/21 Additional Comments F/U: TF formula change/ tolerance, vent status, propofol <CATRINA MONDRAGON - Last Filed: 08/25/21 07:10> Assessment and Plan Assessment and plan: I saw and evaluated the patient. I agree with the findings and the plan of care as documented in the Nurse Practitioner's~note, with the following corrections and additions. Hospitalist Physical - Constitutional Vitals: Temp Pulse Resp BP Pulse Ox 99.9 F H 102 H 12 134/84 97 08/25/21 03:40 08/25/21 06:30 08/25/21 06:30 08/25/21 06:30 08/25/21 06:30 Results - Labs CBC & Chem 7: 08/23/21 04:11 08/23/21 04:11 Labs: Laboratory Last Values WBC 10.0 K/mm3 (4.5-11.0) 08/23/21 04:11 RBC 3.70 M/mm3 (3.65-5.03) 08/23/21 04:11 Hgb 12.0 gm/dl (10.1-14.3) 08/23/21 04:11 Hct 36.2 % (30.3-42.9) 08/23/21 04:11 MCV 98 fl (79-97) H 08/23/21 04:11 MCH 33 pg (28-32) H 08/23/21 04:11 MCHC 33 % (30-34) 08/23/21 04:11 RDW 16.1 % (13.2-15.2) H 08/23/21 04:11 Plt Count 233 K/mm3 (140-440) 08/23/21 04:11 Lymph # (Auto) Manager Database Administration 08/19/21 02:24 Add Manual Diff Complete 08/20/21 04:25 Total Counted 100 08/20/21 04:25 Seg Neuts % (Manual) 83.0 % (40.0-70.0) H 08/20/21 04:25 Band Neutrophils % 0 % 08/20/21 04:25 Lymphocytes % (Manual) 14.0 % (13.4-35.0) 08/20/21 04:25 Reactive Lymphs % (Man) 0 % 08/20/21 04:25 Monocytes % (Manual) 3.0 % (0.0-7.3) 08/20/21 04:25 Eosinophils % (Manual) 0 % (0.0-4.3) 08/20/21 04:25 Basophils % (Manual) 0 % (0.0-1.8) 08/20/21 04:25 Metamyelocytes % 0 % 08/20/21 04:25 Myelocytes % 0 % 08/20/21 04:25 Promyelocytes % 0 % 08/20/21 04:25 Blast Cells % 0 % 08/20/21 04:25 Nucleated RBC % Not Reportable 08/20/21 04:25 Seg Neutrophils # Man 7.5 K/mm3 (1.8-7.7) 08/20/21 04:25 Band Neutrophils # 0.0 K/mm3 08/20/21 04:25 Lymphocytes # (Manual) 1.3 K/mm3 (1.2-5.4) 08/20/21 04:25 Abs React Lymphs (Man) 0.0 K/mm3 08/20/21 04:25 Monocytes # (Manual) 0.3 K/mm3 (0.0-0.8) 08/20/21 04:25 Eosinophils # (Manual) 0.0 K/mm3 (0.0-0.4) 08/20/21 04:25 Basophils # (Manual) 0.0 K/mm3 (0.0-0.1) 08/20/21 04:25 Metamyelocytes # 0.0 K/mm3 08/20/21 04:25 Myelocytes # 0.0 K/mm3 08/20/21 04:25 Promyelocytes # 0.0 K/mm3 08/20/21 04:25 Blast Cells # 0.0 K/mm3 08/20/21 04:25 WBC Morphology Not Reportable 08/20/21 04:25 Hypersegmented Neuts Not Reportable 08/20/21 04:25 Hyposegmented Neuts Not Reportable 08/20/21 04:25 Hypogranular Neuts Not Reportable 08/20/21 04:25 Smudge Cells Not Reportable 08/20/21 04:25 Toxic Granulation Not Reportable 08/20/21 04:25 Toxic Vacuolation Not Reportable 08/20/21 04:25 Dohle Bodies Not Reportable 08/20/21 04:25 Pelger-Huet Anomaly Not Reportable 08/20/21 04:25 Erik Rods Not Reportable 08/20/21 04:25 Platelet Estimate Consistent w auto 08/20/21 04:25 Clumped Platelets Not Reportable 08/20/21 04:25 Plt Clumps, EDTA Not Reportable 08/20/21 04:25 Large Platelets Rare 08/20/21 04:25 Giant Platelets Not Reportable 08/20/21 04:25 Platelet Satelliting Not Reportable 08/20/21 04:25 Plt Morphology Comment Not Reportable 08/20/21 04:25 RBC Morphology Not Reportable 08/20/21 04:25 Dimorphic RBCs Not Reportable 08/20/21 04:25 Polychromasia Not Reportable 08/20/21 04:25 Hypochromasia Not Reportable 08/20/21 04:25 Poikilocytosis Rare 08/20/21 04:25 Anisocytosis Rare 08/20/21 04:25 Microcytosis Not Reportable 08/20/21 04:25 Macrocytosis Not Reportable 08/20/21 04:25 Spherocytes Not Reportable 08/20/21 04:25 Pappenheimer Bodies Not Reportable 08/20/21 04:25 Sickle Cells Not Reportable 08/20/21 04:25 Target Cells Not Reportable 08/20/21 04:25 Tear Drop Cells Not Reportable 08/20/21 04:25 Ovalocytes Rare 08/20/21 04:25 Helmet Cells Not Reportable 08/20/21 04:25 [place] Bodies Not Reportable 08/20/21 04:25 [place] Rings Not Reportable 08/20/21 04:25 Orange Cells Not Reportable 08/20/21 04:25 Bite Cells Not Reportable 08/20/21 04:25 Crenated Cell Not Reportable 08/20/21 04:25 Elliptocytes Not Reportable 08/20/21 04:25 Acanthocytes (Spur) Not Reportable 08/20/21 04:25 Rouleaux Not Reportable 08/20/21 04:25 Hemoglobin C Crystals Not Reportable 08/20/21 04:25 Schistocytes Not Reportable 08/20/21 04:25 Malaria parasites Not Reportable 08/20/21 04:25 Marco Bodies Not Reportable 08/20/21 04:25 Hem Pathologist Commnt No 08/20/21 04:25 PT 12.8 Sec. (12.2-14.9) 08/19/21 02:24 INR 0.87 (0.87-1.13) 08/19/21 02:24 APTT 20.0 Sec. (24.2-36.6) L 08/19/21 02:24 ABG pH 7.481 pH Units (7.350-7.450) H 08/24/21 06:00 POC ABG pCO2 30.1 mmHg (32.0-48.0) L 08/22/21 10:16 ABG pCO2 40.8 mm Hg 08/24/21 06:00 POC ABG pO2 109.5 mmHg (83-108) H 08/22/21 10:16 ABG pO2 95.8 mm Hg (80.0-90.0) H 08/24/21 06:00 POC ABG HCO3 23.5 08/22/21 10:16 ABG HCO3 29.8 mmol/L (20.0-26.0) H 08/24/21 06:00 ABG O2 Saturation 97.8 % (95.0-99.0) 08/24/21 06:00 ABG O2 Content 20.9 (0.0-44) 08/22/21 04:40 POC ABG Base Excess 1.2 08/22/21 10:16 ABG Base Excess 5.8 mmol/L (-2.0-3.0) H 08/24/21 06:00 ABG Hemoglobin 12.5 gm/dl (12.0-16.0) 08/24/21 06:00 ABG Oxyhemoglobin 96.8 (94-98) 08/22/21 10:16 ABG Carboxyhemoglobin 0.5 % (0.0-5.0) 08/24/21 06:00 ABG Methemoglobin 0.3 % (0.0-1.5) 08/24/21 06:00 ABG Sodium Not Reportable 08/22/21 10:16 ABG Potassium Not Reportable 08/22/21 10:16 ABG Chloride Not Reportable 08/22/21 10:16 ABG Glucose Not Reportable 08/22/21 10:16 Oxyhemoglobin 97.0 % (95.0-99.0) 08/24/21 06:00 Carboxyhemoglobin 1.1 (0.5-1.5) 08/22/21 10:16 FiO2 30 % 08/24/21 06:00 FiO2 % 30.0 08/22/21 10:16 Sodium 140 mmol/L (137-145) 08/23/21 04:11 Potassium 3.6 mmol/L (3.6-5.0) 08/23/21 04:11 Chloride 101.7 mmol/L (98-107) 08/23/21 04:11 Carbon Dioxide 27 mmol/L (22-30) 08/23/21 04:11 Anion Gap 15 mmol/L 08/23/21 04:11 BUN 17 mg/dL (7-17) 08/23/21 04:11 Creatinine 0.6 mg/dL (0.6-1.2) 08/23/21 04:11 Estimated GFR > 60 ml/min 08/23/21 04:11 BUN/Creatinine Ratio 28 % 08/23/21 04:11 Glucose 148 mg/dL (65-100) H 08/23/21 04:11 POC Glucose 93 mg/dL (70-105) 08/24/21 23:35 Calcium 8.7 mg/dL (8.4-10.2) 08/23/21 04:11 Phosphorus 2.90 mg/dL (2.5-4.5) 08/23/21 04:11 Magnesium 2.00 mg/dL (1.7-2.3) 08/23/21 04:11 Total Bilirubin 0.40 mg/dL (0.1-1.2) 08/20/21 04:25 AST 23 units/L (5-40) 08/20/21 04:25 ALT 13 units/L (7-56) 08/20/21 04:25 Alkaline Phosphatase 94 units/L (35-129) 08/20/21 04:25 Total Protein 7.3 g/dL (6.3-8.2) 08/20/21 04:25 Albumin 4.0 g/dL (3.9-5) 08/20/21 04:25 Albumin/Globulin Ratio 1.2 % 08/20/21 04:25 Triglycerides 109 mg/dL (2-149) 08/22/21 03:54 Arterial Blood Glucose Not Reportable 08/22/21 10:16 Blood Type A POSITIVE 08/21/21 15:10 Lewis/IV: Voiding Method Indwelling Catheter Active Medications - Current Medications Current Medications: Generic Name Dose Route Start Last Admin Trade Name Freq PRN Reason Stop Dose Admin Acetaminophen 650 mg 08/19/21 06:00 Acetaminophen 325 Mg Tab FEEDTUBE Q4H PRN Pain MILD(1-3)/Fever >100.5/SAEED Albuterol 2.5 mg 08/19/21 04:50 Albuterol 2.5 Mg/3 Ml Nebu IH Q3HRT PRN Shortness Of Breath Albuterol/Ipratropium 1 ampul 08/19/21 08:00 08/25/21 05:33 Ipratropium/Albuterol Sulfate 3 Ml Ampul.Neb IH 1 ampul Q6HRT WARD Administration Alprazolam 0.25 mg 08/19/21 06:00 Alprazolam 0.25 Mg Tab FEEDTUBE BID PRN Anxiety Atorvastatin Calcium 10 mg 08/23/21 22:00 08/24/21 21:46 Atorvastatin 10 Mg Tab FEEDTUBE 10 mg QHS WARD Administration Buspirone HCl 10 mg 08/19/21 10:00 08/24/21 21:27 Buspirone 10 Mg Tab FEEDTUBE 10 mg BID WARD Administration Dextrose 50 ml 08/20/21 10:00 Dextrose 50% In Water (25gm) 50 Ml Syringe IV Q30MIN PRN Hypoglycemia Protocol Diphenhydramine HCl 25 mg 08/24/21 11:40 Diphenhydramine 50 Mg/Ml Vial IV Q6H PRN ANGIOEDEMA Famotidine 20 mg 08/19/21 10:00 08/24/21 21:27 Famotidine 20 Mg/2 Ml Inj IV 20 mg BID WARD Administration Fentanyl 50 mcg 08/23/21 11:28 08/24/21 18:16 Fentanyl 100 Mcg/2 Ml Inj IV 50 mcg Q10MIN PRN Administration ANALGESIA Folic Acid 1 mg 08/19/21 10:00 08/24/21 09:30 Folic Acid 1 Mg Tab FEEDTUBE 1 mg QDAY WARD Administration Heparin Sodium (Porcine) 5,000 unit 08/19/21 10:00 08/24/21 21:28 Heparin 5,000 Unit/1 Ml Vial SUB-Q 5,000 unit Q12HR WARD Administration Hydralazine HCl 10 mg 08/19/21 05:03 08/24/21 18:09 Hydralazine 20 Mg/1 Ml Inj IV 10 mg Q6H PRN Administration SBP >/=160; DBP >/=100 Propofol 1,000 mg in 100 mls @ 2.722 mls/hr 08/19/21 12:00 08/25/21 05:20 Diprivan 10 Mg/Ml IV 30 mcg/kg/min TITR WARD 16.329 mls/hr Administration Protocol 5 MCG/KG/MIN Fentanyl Citrate 2,000 mcg in 100 mls @ 2.125 mls/hr 08/23/21 12:00 Fentanyl Drip Premix IV TITR WARD Protocol 1 MCG/KG/HR Insulin Human Regular 0 units 08/20/21 12:00 08/25/21 00:00 Insulin Regular, Human 100 Units/1 Ml SUB-Q Not Given Q6H [facility] Protocol Levothyroxine Sodium 150 mcg 08/19/21 06:00 08/25/21 05:24 Levothyroxine 75 Mcg Tab FEEDTUBE 150 mcg DAILY@0600 WARD Administration Ondansetron HCl 4 mg 08/19/21 04:50 Ondansetron 4 Mg/2 Ml Inj IV Q8H PRN Nausea And Vomiting Senna 8.8 mg 08/23/21 22:00 08/24/21 21:27 Sennosides Oral Liqd 8.8 Mg/5 Ml Oral Liqd FEEDTUBE 8.8 mg QHS WARD Administration Sertraline HCl 25 mg 08/19/21 10:00 08/24/21 09:30 Sertraline 25 Mg Tab FEEDTUBE 25 mg QDAY WARD Administration Sodium Chloride 10 ml 08/19/21 10:00 08/24/21 21:28 Sodium Chloride 0.9% 10 Ml Flush Syringe IV 10 ml BID WARD Administration Sodium Chloride 10 ml 08/19/21 04:50 Sodium Chloride 0.9% 10 Ml Flush Syringe IV PRN PRN LINE FLUSH Sucralfate 1 gm 08/23/21 18:00 08/25/21 05:22 Sucralfate 1 Gm Tab FEEDTUBE 1 gm Q6HR WARD Administration Thiamine HCl 100 mg 08/19/21 10:00 08/24/21 09:30 Thiamine 100 Mg Tab FEEDTUBE 100 mg QDAY WARD Administration Nutrition/Malnutrition Assess - Dietary Evaluation Nutrition/Malnutrition Findings: Nutrition Notes Start: 08/19/21 10:13 Freq: Status: Active Protocol: Document 08/23/21 15:04 LOGAN (Rec: 08/23/21 15:16 LOGAN [id number]) Nutrition Notes Initial or Follow up Reassessment Current Diagnosis Hypertension,Respiratory Failure Other Pertinent Diagnosis Angioedema, Depression Current Diet TF - Jevity 1.2 at 45ml/hr Labs/Tests Reviewed Pertinent Medications Solumedrol, Propofol at 16. 329ml/hr (provides 431 kcal), Thiamine, Folvite Height 4 ft 11 in Weight 74 kg [place] Body Weight (kg) 43.18 BMI 32.9 Weight change and time frame Current wt obtained from pt's RN Weight Status Obese Subjective/Other Information Pt remains on vent support and tolerating TF at goal rate. Percent of energy/protein needs met: 94% energy 70% pro Burn Absent Trauma Absent #1 Nutrition Diagnosis Inadequate oral intake Diagnosis Progress(for reassessment Continues documentation) Is patient on ventilator? Yes Is Patient Ambulatory and/or Out of Bed No REE-([place]-confined to bed) 1375.068 Kcal/Kg value to use for calculation 17 Approximate Energy Requirements Using 1258 kcal/Kg Calculation Used for Recommendations Kcal/kg Additional Notes Pro needs 2g/kg IBW: 86g/day Fluid needs 1ml/kcal Nutrition Intervention Nutrition Support: Change TF formula to Glucerna 1.2 at 45ml/hr with 70ml water flush q4h. Kcal 1,296 Protein (gm) 65 Carbohydrates (gm) 124 Fat (gm) 65 Fluid (mL) 869 Fiber (gm) 17 Goal #1 TF tolerance Goal #2 TF to meet at least 75% energy and pro needs Follow-Up By: 08/25/21 Additional Comments F/U: TF formula change/ tolerance, vent status, propofol
--- NOTE | 2021-08-24 17:00 | Cat Scan Report ---
CT NECK WITHOUT INTRAVENOUS CONTRAST AND with MULTIPLANAR RECONSTRUCTION CLINICAL HISTORY: Angioedema TECHNIQUE: 2.5 mm thick contiguous axial scans were obtained from the skull base down to the aortic arch. In add ition to evaluation of axial source images sagittal and coronal multiplanar reconstructions were prod uced and reviewed for this report. CONTRAST DOSE REPORT: Noncontrast study. All CT imaging studies performed at this facility utilize dose modulation, iterative reconstruction o r weight based dosing, if appropriate, to obtain the lowest achievable radiation dose. FINDINGS: AIRWAY: An orotracheal tube is present. The tip of the endotracheal tube is not included on this stud y. A nasoenteric tube traverses the right nasal cavity. The tip of this tube is out of range this st udy. The presence of these support devices limits evaluation of the airway. LYMPH NODES: Submandibular lymph nodes are demonstrated bilaterally (level 1B). Normal-sized lymph no yanira are also observed in level 2 bilaterally. ORAL CAVITY/FLOOR OF MOUTH: The tongue appears enlarged relative to the size of the oral cavity. Tip of the tongue protrudes between the patient's limits. No focal lesion is observed. History provided i s angioedema which could account for macro clot seen in this case. Evaluation of the floor the mouth reveals no abnormality. MAJOR SALIVARY GLANDS: The parotid and submandibular salivary glands have a normal appearance. NASAL CAVITY AND PARANASAL SINUSES: Right nasoenteric intubation as described above. Bilateral avis bullosa with pneumatization is expansion of the middle turbinates. Air passageways the nasal cavity appear clear. A small air-fluid levels present in the right sphenoid sinus. Paranasal sinuses are oth erwise free from inflammatory mucosal disease. ORBITS: Patient is status post bilateral cataract surgery. No additional abnormality. THYROID GLAND: There is prominent enlargement the thyroid gland consistent with thyroid goiter. Right lobe is larger than on the left. This presumed thyroid goiter effaces the fat in the deep tissue zhen rosalee of the neck. There is posterior displacement of the neurovascular sheath structures by this large mass. Thickening of the thyroid isthmus is noted. Right lobe of the thyroid gland measures about 7.7 cm in superior-inferior dimension by 2.8 x 3.7 cm in transverse dimension. The left lobe of the thyr oid gland measures about 5.3 cm in superior-inferior dimension by 3.2 x 2.5 cm in transverse dimensio n. The thyroid isthmus measures about 1.2 cm in thickness. Formation with diagnostic thyroid ultrasou nd is suggested. Thyroid goiter is considered to be by far the most likely explanation for the abnorm al soft tissue material in the anterior neck. The possibility of conglomerate lymphadenopathy could a lso be considered. TEMPORAL BONES:Mastoid air cells are normally pneumatized. CRANIOCERVICAL JUNCTION:No significant abnormality. CERVICAL SPINE: Evaluation of the cervical spine has remarkable for mild cervical spondylosis with lo ss of disc height and anterior osteophyte formation C5-6 and C6 there is no indication of central can al stenosis. LUNG APICES: Evaluation of the lung apices reveals no abnormality. There is no indication of lung nod ule or infiltrate. The visualized portions of the superior mediastinum have an unremarkable appearanc e. IMPRESSION: 1. Suspect large thyroid goiter. Confirmation with thyroid ultrasound is advised. 2. Macroglossia. No intrinsic lesions are identified. History provided is meningioma edema. This coul d contribute to enlargement of the tongue. 3. The presence of an orotracheal tube and right-sided nasoenteric tube limit evaluation of the airwa y. Signer Name: Rasta Medina MD Signed: 08/24/2021 4:55 PM Workstation Name: [id number]
[2021-08-24] MEDS: fentaNYL 100 MCG/2 ML INJ IV PRN (18:16)
[2021-08-24] MEDS: SENNOSIDES ORAL LIQD 8.8 MG/5 ML ORAL LIQD FEEDTUBE SCH (21:27)
[2021-08-25] MEDS: SUCRALFATE 1 GM TAB FEEDTUBE SCH ×4 (05:22→17:31)
[2021-08-25] MEDS: LEVOTHYROXINE 75 MCG TAB FEEDTUBE SCH (05:24)
[2021-08-25] MEDS: IPRATROPIUM/ALBUTEROL SULFATE 3 ML AMPUL.NEB IH SCH ×4 (05:33→19:56)
[2021-08-25] MEDS: INSULIN REGULAR, HUMAN 100 UNITS/1 ML SUB-Q SCH ×4 (06:30→17:31)
[2021-08-25] MEDS: fentaNYL 100 MCG/2 ML INJ IV PRN (07:48)
--- NOTE | 2021-08-25 08:40 | Progress Note ---
Assessment and Plan 76 y/o female with acute respiratory failure secondary to angioedema 08/25/21: Reviewed CT of neck and looked at images myself. Patient has an 8.0 ET tube and is a female, most likely this tube is large for her airway. She is on minimal support. Would like to do a trial of PSV and then attempt extubation early this am. If re-intubated, will need trach. Can consult surgery here and make them aware of large goiter and see if this is something they can handle, if not, patient would need transfer. 1. Agree with IV steroids 2. Suggest adding scheduled benadryl and pepcid 3. If swelling does not improve in the next 24-48 hours, suggest a trial of FFP 4. Wean FiO2 for sats > 88% CCT 31 minutes Subjective Date of service: 08/25/21 Interval history: No acute events. Will wake up on Diprovan. Neck CT shows large goiter but no direct airway impingement/obstruction. ET tube in place. Objective Vital Signs - 12hr 08/24/21 08/24/21 08/24/21 21:01 21:30 21:31 Temperature Pulse Rate 100 H 99 H Pulse Rate [ Bilateral] Pulse Rate [ 90 From Monitor] Respiratory 12 12 15 Rate Respiratory Rate [Bilateral ] Respiratory 14 Rate [Chest] Blood Pressure 157/91 157/91 O2 Sat by Pulse 97 100 99 Oximetry 08/24/21 08/24/21 08/24/21 22:01 22:31 23:00 Temperature Pulse Rate 99 H 101 H 96 H Pulse Rate [ Bilateral] Pulse Rate [ From Monitor] Respiratory 12 12 12 Rate Respiratory Rate [Bilateral ] Respiratory Rate [Chest] Blood Pressure 167/101 146/90 146/90 O2 Sat by Pulse 98 99 99 Oximetry 08/24/21 08/24/21 08/24/21 23:02 23:30 23:58 Temperature 98.6 F Pulse Rate 100 H 99 H Pulse Rate [ Bilateral] Pulse Rate [ From Monitor] Respiratory 12 23 Rate Respiratory Rate [Bilateral ] Respiratory Rate [Chest] Blood Pressure 146/90 O2 Sat by Pulse 99 99 Oximetry 08/25/21 08/25/21 08/25/21 00:00 00:09 00:30 Temperature Pulse Rate 97 H 107 H 107 H Pulse Rate [ Bilateral] Pulse Rate [ From Monitor] Respiratory 12 12 17 Rate Respiratory Rate [Bilateral ] Respiratory 14 Rate [Chest] Blood Pressure 137/87 137/87 O2 Sat by Pulse 99 100 98 Oximetry 08/25/21 08/25/21 08/25/21 00:31 01:00 01:10 Temperature Pulse Rate 98 H 95 H Pulse Rate [ Bilateral] Pulse Rate [ From Monitor] Respiratory 16 12 Rate Respiratory Rate [Bilateral ] Respiratory Rate [Chest] Blood Pressure 148/89 O2 Sat by Pulse 98 Oximetry 08/25/21 08/25/21 08/25/21 01:30 02:00 02:30 Temperature Pulse Rate 95 H 99 H 94 H Pulse Rate [ Bilateral] Pulse Rate [ From Monitor] Respiratory 12 18 14 Rate Respiratory Rate [Bilateral ] Respiratory Rate [Chest] Blood Pressure 148/89 164/90 164/90 O2 Sat by Pulse 98 97 99 Oximetry 08/25/21 08/25/21 08/25/21 03:00 03:30 03:40 Temperature 99.9 F H Pulse Rate 93 H 95 H Pulse Rate [ Bilateral] Pulse Rate [ From Monitor] Respiratory 12 14 Rate Respiratory Rate [Bilateral ] Respiratory Rate [Chest] Blood Pressure 143/87 143/87 O2 Sat by Pulse 99 98 Oximetry 08/25/21 08/25/21 08/25/21 04:00 04:11 04:30 Temperature Pulse Rate 92 H 94 H 97 H Pulse Rate [ Bilateral] Pulse Rate [ From Monitor] Respiratory 12 12 13 Rate Respiratory Rate [Bilateral ] Respiratory 14 Rate [Chest] Blood Pressure 146/92 136/83 O2 Sat by Pulse 98 100 99 Oximetry 08/25/21 08/25/21 08/25/21 05:00 05:30 06:00 Temperature Pulse Rate 95 H 91 H 95 H Pulse Rate [ Bilateral] Pulse Rate [ From Monitor] Respiratory 20 15 12 Rate Respiratory Rate [Bilateral ] Respiratory Rate [Chest] Blood Pressure 146/92 146/92 134/84 O2 Sat by Pulse 99 98 96 Oximetry 08/25/21 08/25/21 08/25/21 06:30 07:00 07:30 Temperature Pulse Rate 102 H 96 H 97 H Pulse Rate [ Bilateral] Pulse Rate [ From Monitor] Respiratory 12 12 12 Rate Respiratory Rate [Bilateral ] Respiratory Rate [Chest] Blood Pressure 134/84 133/84 133/84 O2 Sat by Pulse 97 97 Oximetry 08/25/21 08:00 Temperature 96.8 F L Pulse Rate 97 H Pulse Rate [ 93 H Bilateral] Pulse Rate [ 97 H From Monitor] Respiratory 12 Rate Respiratory 12 Rate [Bilateral ] Respiratory Rate [Chest] Blood Pressure 91/64 O2 Sat by Pulse 97 Oximetry Constitutional: no acute distress, other (Sedated) ENT: oropharynx moist, other (Orally intubated significant swelling of the tongue with protrusion) Neck: supple, no lymphadenopathy Effort: other (Supported on ventilator) Ascultation: Bilateral: clear Cardiovascular: regular rate and rhythm Gastrointestinal: normoactive bowel sounds, soft, non-tender, other (Obese) Extremities: no cyanosis, no edema, pink and warm Neurologic: other (Sedated) Psychiatric: other (Sedated) CBC and BMP: 08/23/21 04:11 08/23/21 04:11 ABG, PT/INR, D-dimer: ABG ABG pH 7.481 pH Units (7.350-7.450) H 08/24/21 06:00 POC ABG pCO2 30.1 mmHg (32.0-48.0) L 08/22/21 10:16 ABG pCO2 40.8 mm Hg 08/24/21 06:00 POC ABG pO2 109.5 mmHg (83-108) H 08/22/21 10:16 ABG pO2 95.8 mm Hg (80.0-90.0) H 08/24/21 06:00 POC ABG HCO3 23.5 08/22/21 10:16 ABG O2 Saturation 97.8 % (95.0-99.0) 08/24/21 06:00 PT/INR, D-dimer PT 12.8 Sec. (12.2-14.9) 08/19/21 02:24 INR 0.87 (0.87-1.13) 08/19/21 02:24 Abnormal lab findings: Abnormal Labs 08/19/21 08/19/21 08/19/21 02:24 02:24 02:24 WBC 13.9 H RBC MCV 98 H MCH 33 H RDW 15.7 H Seg Neuts % (Manual) Lymphocytes % (Manual) 52.0 H Lymphocytes # (Manual) 7.2 H APTT 20.0 L ABG pH POC ABG pCO2 POC ABG pO2 ABG pO2 ABG HCO3 ABG O2 Saturation ABG Base Excess ABG Hemoglobin Potassium 3.3 L Chloride Carbon Dioxide 20 L Glucose 143 H POC Glucose Calcium Total Protein 8.3 H 08/19/21 08/19/21 08/19/21 06:15 10:20 11:10 WBC RBC MCV MCH RDW Seg Neuts % (Manual) Lymphocytes % (Manual) Lymphocytes # (Manual) APTT ABG pH 7.465 H 7.503 H POC ABG pCO2 POC ABG pO2 ABG pO2 177.7 H 90.5 H ABG HCO3 ABG O2 Saturation 99.2 H ABG Base Excess ABG Hemoglobin Potassium Chloride Carbon Dioxide Glucose POC Glucose 171 H Calcium Total Protein 08/19/21 08/20/21 08/20/21 16:33 00:03 04:25 WBC RBC MCV 98 H MCH 33 H RDW 15.9 H Seg Neuts % (Manual) 83.0 H Lymphocytes % (Manual) Lymphocytes # (Manual) APTT ABG pH POC ABG pCO2 POC ABG pO2 ABG pO2 ABG HCO3 ABG O2 Saturation ABG Base Excess ABG Hemoglobin Potassium Chloride Carbon Dioxide Glucose POC Glucose 179 H 133 H Calcium Total Protein 08/20/21 08/20/21 08/20/21 04:25 04:30 05:39 WBC RBC MCV MCH RDW Seg Neuts % (Manual) Lymphocytes % (Manual) Lymphocytes # (Manual) APTT ABG pH POC ABG pCO2 POC ABG pO2 ABG pO2 95.5 H ABG HCO3 ABG O2 Saturation ABG Base Excess -2.2 L ABG Hemoglobin Potassium Chloride Carbon Dioxide 21 L Glucose 143 H POC Glucose 168 H Calcium 8.2 L Total Protein 08/20/21 08/20/21 08/21/21 12:04 16:38 00:12 WBC RBC MCV MCH RDW Seg Neuts % (Manual) Lymphocytes % (Manual) Lymphocytes # (Manual) APTT ABG pH POC ABG pCO2 POC ABG pO2 ABG pO2 ABG HCO3 ABG O2 Saturation ABG Base Excess ABG Hemoglobin Potassium Chloride Carbon Dioxide Glucose POC Glucose 151 H 135 H 123 H Calcium Total Protein 08/21/21 08/21/21 08/21/21 04:58 04:58 04:59 WBC RBC 3.64 L MCV 100 H MCH RDW 16.4 H Seg Neuts % (Manual) Lymphocytes % (Manual) Lymphocytes # (Manual) APTT ABG pH POC ABG pCO2 POC ABG pO2 ABG pO2 ABG HCO3 ABG O2 Saturation ABG Base Excess -2.6 L ABG Hemoglobin 11.6 L Potassium 3.5 L Chloride 109.5 H Carbon Dioxide 19 L Glucose 159 H POC Glucose Calcium 8.3 L Total Protein 08/21/21 08/21/21 08/21/21 05:22 11:21 16:29 WBC RBC MCV MCH RDW Seg Neuts % (Manual) Lymphocytes % (Manual) Lymphocytes # (Manual) APTT ABG pH POC ABG pCO2 POC ABG pO2 ABG pO2 ABG HCO3 ABG O2 Saturation ABG Base Excess ABG Hemoglobin Potassium Chloride Carbon Dioxide Glucose POC Glucose 143 H 133 H 122 H Calcium Total Protein 08/22/21 08/22/21 08/22/21 00:03 03:54 03:54 WBC RBC 3.53 L MCV 100 H MCH 33 H RDW 16.7 H Seg Neuts % (Manual) Lymphocytes % (Manual) Lymphocytes # (Manual) APTT ABG pH POC ABG pCO2 POC ABG pO2 ABG pO2 ABG HCO3 ABG O2 Saturation ABG Base Excess ABG Hemoglobin Potassium Chloride 107.5 H Carbon Dioxide Glucose 123 H POC Glucose 132 H Calcium Total Protein 08/22/21 08/22/21 08/22/21 04:40 06:08 10:16 WBC RBC MCV MCH RDW Seg Neuts % (Manual) Lymphocytes % (Manual) Lymphocytes # (Manual) APTT ABG pH 7.454 H 7.511 H POC ABG pCO2 30.1 L POC ABG pO2 109.5 H ABG pO2 109.8 H ABG HCO3 ABG O2 Saturation ABG Base Excess ABG Hemoglobin Potassium Chloride Carbon Dioxide Glucose POC Glucose 137 H Calcium Total Protein 08/22/21 08/22/21 08/22/21 10:27 10:27 11:13 WBC RBC MCV 99 H MCH RDW 16.6 H Seg Neuts % (Manual) Lymphocytes % (Manual) Lymphocytes # (Manual) APTT ABG pH POC ABG pCO2 POC ABG pO2 ABG pO2 ABG HCO3 ABG O2 Saturation ABG Base Excess ABG Hemoglobin Potassium Chloride Carbon Dioxide Glucose 129 H POC Glucose 125 H Calcium Total Protein 08/22/21 08/23/21 08/23/21 23:39 04:11 04:11 WBC RBC MCV 98 H MCH 33 H RDW 16.1 H Seg Neuts % (Manual) Lymphocytes % (Manual) Lymphocytes # (Manual) APTT ABG pH POC ABG pCO2 POC ABG pO2 ABG pO2 ABG HCO3 ABG O2 Saturation ABG Base Excess ABG Hemoglobin Potassium Chloride Carbon Dioxide Glucose 148 H POC Glucose 117 H Calcium Total Protein 08/23/21 08/23/21 08/23/21 05:32 11:02 18:04 WBC RBC MCV MCH RDW Seg Neuts % (Manual) Lymphocytes % (Manual) Lymphocytes # (Manual) APTT ABG pH POC ABG pCO2 POC ABG pO2 ABG pO2 ABG HCO3 ABG O2 Saturation ABG Base Excess ABG Hemoglobin Potassium Chloride Carbon Dioxide Glucose POC Glucose 173 H 146 H 129 H Calcium Total Protein 08/24/21 08/24/21 08/24/21 00:27 05:20 06:00 WBC RBC MCV MCH RDW Seg Neuts % (Manual) Lymphocytes % (Manual) Lymphocytes # (Manual) APTT ABG pH 7.481 H POC ABG pCO2 POC ABG pO2 ABG pO2 95.8 H ABG HCO3 29.8 H ABG O2 Saturation ABG Base Excess 5.8 H ABG Hemoglobin Potassium Chloride Carbon Dioxide Glucose POC Glucose 146 H 159 H Calcium Total Protein 08/24/21 11:37 WBC RBC MCV MCH RDW Seg Neuts % (Manual) Lymphocytes % (Manual) Lymphocytes # (Manual) APTT ABG pH POC ABG pCO2 POC ABG pO2 ABG pO2 ABG HCO3 ABG O2 Saturation ABG Base Excess ABG Hemoglobin Potassium Chloride Carbon Dioxide Glucose POC Glucose 154 H Calcium Total Protein
[2021-08-25] MEDS: FAMOTIDINE 20 MG/2 ML INJ IV SCH ×2 (09:10→21:52)
[2021-08-25] MEDS: SERTRALINE 25 MG TAB FEEDTUBE SCH (09:11)
[2021-08-25] MEDS: MULTIVITAMIN / MINERAL ORAL LIQUID 15 ML FEEDTUBE SCH (09:11)
[2021-08-25] MEDS: THIAMINE 100 MG TAB FEEDTUBE SCH (09:11)
[2021-08-25] MEDS: FOLIC ACID 1 MG TAB FEEDTUBE SCH (09:11)
[2021-08-25] MEDS: HEPARIN 5,000 UNIT/1 ML VIAL SUB-Q SCH ×2 (09:11→21:52)
[2021-08-25] MEDS: busPIRone 10 MG TAB FEEDTUBE SCH ×2 (09:11→21:51)
[2021-08-25] MEDS ORDERED: EPINEPHrine RACEMIC 2.25% 0.5ML NEBU IH SCH (09:30)
[2021-08-25] MEDS ORDERED: EPINEPHrine RACEMIC 2.25% 0.5ML NEBU IH ONE ×2 (09:40→13:45)
[2021-08-25] MEDS ORDERED: methylPREDNISolone Sod Succinate 125 MG/2 ML INJ IV SCH (10:30)
[2021-08-25] MEDS ORDERED: SUCCINYLCHOLINE CHLORIDE 200 MG/10 ML INJ MDV ONE (11:00)
[2021-08-25] MEDS ORDERED: LIDOCAINE MPF (2%) 20 MG/1 ML VIAL 5 ML ONE (11:00)
[2021-08-25] MEDS ORDERED: MIDAZOLAM 5 MG/5 ML INJ MDV IV ONE (11:01)
[2021-08-25] MEDS ORDERED: KETAMINE/STERILE WATER 50 MG/ML SYRINGE ONE (11:01)
--- NOTE | 2021-08-25 11:12 | Progress Note ---
<DELICIA LOYA - Last Filed: 08/25/21 14:09> Assessment and Plan Assessment and plan: This is a 76-year-old female with hypertension, psychiatric illness, and hypothyroidism admitted with angioedema and intubated for airway protection Hospital Course to Date: 08/19: Patient started on tube feedings, potassium repleted, started on Benadryl and propofol for sedation. SSI started. Air leak present today however due to swelling of the tongue we will hold off extubation. CCM plans to try FFP in the a.m. if swelling not better. 08/20: Angioedema slightly better so we will hold off FFP today. Updated son at bedside but he did not know what medication she was taking and states that she has not had angioedema in the past. Patient still remains on Versed and propofol. Was given 500 mL bolus overnight for hypotension and will repeat for hypotension. 08/21: Leak test today at bedside with RT shows no leak and will give FFP today. Tongue looks a bit smaller today but given no leak, CCM will not extubate today. Sedated with propofol and versed. Son at bedside today. 08/22: RT performed leak test in the AM and stated there was a leak noted and placed the patient on CPAP. She was sedated on versed at 4 and propofol at 30 but these are off for CPAP. Will removed lewis. Received FFP yesterday. Angioedema is improved. Leak test performed again with Dr. Bailey and no leak audible. Switched back to AC and sedation restarted. 08/23: Remains on the vent and sedated. Cuff leak assessed again today by CCM, still no significant air leak noted. Per CCM keep patient intubated and sedated and continue IV steroids and histamine therapy for now. Fentanyl gtt added, plan to wean off versed for RASS goal of 0 to -1. 08/24: Arousable and appropriate on the vent and on low dose sedation. No cuff leak again today per RT. D/W CCM plan for CT neck w/o contrast for further eval. If CT neck normal, PSV trial and possible extubation tomorrow. 08/25: S/p extubation this am, audible stridor appreciated. S/p X2 doses of RaceEpi and IV solumedrol X1 dose. Patient currently stable on 4L NC, SPO2 at 9 4%. Patient is low threshold for re-intubation, case discussed with anesthesia in case of any decompensation. D/w [facility] patient will need a trach if she is reintubated. Plan of care was thoroughly discussed with patient's son at the bedside by the personal property appraiser. All question and concerns were addressed at this time. Assessment and Plan Neuro:h/o depression -Restart home thiamine, multivitamin, Zoloft, BuSpar and as needed Xanax -Extubated and off sedation -Avoid delirium -Reorientation as needed -Maintain sleep-wake cycle -As needed analgesia Cardiac:Hypertension -BP stable -resume home antihypertensive regimen when available and if needed -Continue blood pressure monitor per protocol -Hydralazine as needed for SBP above 160 Respiratory: Acute hypoxic respiratory failure 2/2 angioedema -Intubated in the emergency department on 08/19 for airway protection -[facility] consulted, appreciate recommendations -08/25 S/p extubation this am -Now with audible stridor s/p X2 raceEpi and IV solumedrol -Patient is now stable on 4L NC, SPO2 at 94% -Low threshold for reintubation -Case discussed with anesthesia in case of any decompensation -Per [facility] if reintubated patient with need a trach -CT neck noted- large thyroid goiter and macroglossia reported, see report for full detail -VAP bundle addressed -Aspiration precaution HOB above 30 -Daily SBT and SAT trials as tolerated -PRN ABG and CXR per [facility] -Continue SPO2 monitoring for SPO2 goal above 92% Endo: Hyperglycemia h/o hypothyroidism -Continue Q6hrs accucheck with SSI -Avoid hypoglycemia -While critically ill target blood glucose of 140-180 -continue synthroid #GI/DVT Prophylaxis -PPI- Pepcid -Heparin SubQ -SCDs to bilateral lower extremities while in bed The high probability of a clinically significant, sudden or life threatening deterioration of the [Respi, Endo] system(s) required my full and direct attention, intervention and personal management. The aggregate critical care time was [60] minutes. This time is in addition to time spent performing reported procedures but includes the following: [x] Data Review and interpretation [x] Patient assessment and monitoring of vital signs [x] Documentation [x] Medication orders and management Disposition Plan: ICU Total Time Spent with Patient (Minutes): 60 History Interval history: Patient seen and examined at the bedside. s/p extubation, audible stridor noted s/p X2 raceepi. Patient is stable on 4L NC, SPO2 at 94%, RR in the 20s, VSS. Hospitalist Physical - Constitutional Vitals: Temp Pulse Resp BP Pulse Ox 96.8 F L 117 H 34 H 131/83 97 08/25/21 08:00 08/25/21 10:30 08/25/21 10:30 08/25/21 10:30 08/25/21 10:30 General appearance: Present: no acute distress, well-nourished, obese - EENT Eyes: Present: PERRL ENT: hearing intact - Neck Neck: Present: normal ROM - Respiratory Respiratory effort: normal, stridor (post extubation) Respiratory: bilateral: diminished - Cardiovascular Rhythm: regular Heart Sounds: Present: S1 & S2 - Extremities Extremities: no ischemia, pulses intact, pulses symmetrical Extremity abnormal: edema - Peripheral Assessment Generalized Edema Type: Non-pitting Edema Degree: 1+ Capillary Refill: < 3 seconds Skin Temperature: Warm Peripheral Pulses: within normal limits - Abdominal General gastrointestinal: soft, non-distended, normal bowel sounds - Integumentary Integumentary: Present: warm, dry - Psychiatric Psychiatric: appropriate mood/affect, cooperative - Neurologic Neurologic: moves all extremities - Allied Health Allied health notes reviewed: nursing, case management Results - Labs CBC & Chem 7: 08/23/21 04:11 08/23/21 04:11 Labs: Laboratory Last Values WBC 10.0 K/mm3 (4.5-11.0) 08/23/21 04:11 RBC 3.70 M/mm3 (3.65-5.03) 08/23/21 04:11 Hgb 12.0 gm/dl (10.1-14.3) 08/23/21 04:11 Hct 36.2 % (30.3-42.9) 08/23/21 04:11 MCV 98 fl (79-97) H 08/23/21 04:11 MCH 33 pg (28-32) H 08/23/21 04:11 MCHC 33 % (30-34) 08/23/21 04:11 RDW 16.1 % (13.2-15.2) H 08/23/21 04:11 Plt Count 233 K/mm3 (140-440) 08/23/21 04:11 Lymph # (Auto) Optical Instrument Assembler 08/19/21 02:24 Add Manual Diff Complete 08/20/21 04:25 Total Counted 100 08/20/21 04:25 Seg Neuts % (Manual) 83.0 % (40.0-70.0) H 08/20/21 04:25 Band Neutrophils % 0 % 08/20/21 04:25 Lymphocytes % (Manual) 14.0 % (13.4-35.0) 08/20/21 04:25 Reactive Lymphs % (Man) 0 % 08/20/21 04:25 Monocytes % (Manual) 3.0 % (0.0-7.3) 08/20/21 04:25 Eosinophils % (Manual) 0 % (0.0-4.3) 08/20/21 04:25 Basophils % (Manual) 0 % (0.0-1.8) 08/20/21 04:25 Metamyelocytes % 0 % 08/20/21 04:25 Myelocytes % 0 % 08/20/21 04:25 Promyelocytes % 0 % 08/20/21 04:25 Blast Cells % 0 % 08/20/21 04:25 Nucleated RBC % Not Reportable 08/20/21 04:25 Seg Neutrophils # Man 7.5 K/mm3 (1.8-7.7) 08/20/21 04:25 Band Neutrophils # 0.0 K/mm3 08/20/21 04:25 Lymphocytes # (Manual) 1.3 K/mm3 (1.2-5.4) 08/20/21 04:25 Abs React Lymphs (Man) 0.0 K/mm3 08/20/21 04:25 Monocytes # (Manual) 0.3 K/mm3 (0.0-0.8) 08/20/21 04:25 Eosinophils # (Manual) 0.0 K/mm3 (0.0-0.4) 08/20/21 04:25 Basophils # (Manual) 0.0 K/mm3 (0.0-0.1) 08/20/21 04:25 Metamyelocytes # 0.0 K/mm3 08/20/21 04:25 Myelocytes # 0.0 K/mm3 08/20/21 04:25 Promyelocytes # 0.0 K/mm3 08/20/21 04:25 Blast Cells # 0.0 K/mm3 08/20/21 04:25 WBC Morphology Not Reportable 08/20/21 04:25 Hypersegmented Neuts Not Reportable 08/20/21 04:25 Hyposegmented Neuts Not Reportable 08/20/21 04:25 Hypogranular Neuts Not Reportable 08/20/21 04:25 Smudge Cells Not Reportable 08/20/21 04:25 Toxic Granulation Not Reportable 08/20/21 04:25 Toxic Vacuolation Not Reportable 08/20/21 04:25 Dohle Bodies Not Reportable 08/20/21 04:25 Pelger-Huet Anomaly Not Reportable 08/20/21 04:25 Erik Rods Not Reportable 08/20/21 04:25 Platelet Estimate Consistent w auto 08/20/21 04:25 Clumped Platelets Not Reportable 08/20/21 04:25 Plt Clumps, EDTA Not Reportable 08/20/21 04:25 Large Platelets Rare 08/20/21 04:25 Giant Platelets Not Reportable 08/20/21 04:25 Platelet Satelliting Not Reportable 08/20/21 04:25 Plt Morphology Comment Not Reportable 08/20/21 04:25 RBC Morphology Not Reportable 08/20/21 04:25 Dimorphic RBCs Not Reportable 08/20/21 04:25 Polychromasia Not Reportable 08/20/21 04:25 Hypochromasia Not Reportable 08/20/21 04:25 Poikilocytosis Rare 08/20/21 04:25 Anisocytosis Rare 08/20/21 04:25 Microcytosis Not Reportable 08/20/21 04:25 Macrocytosis Not Reportable 08/20/21 04:25 Spherocytes Not Reportable 08/20/21 04:25 Pappenheimer Bodies Not Reportable 08/20/21 04:25 Sickle Cells Not Reportable 08/20/21 04:25 Target Cells Not Reportable 08/20/21 04:25 Tear Drop Cells Not Reportable 08/20/21 04:25 Ovalocytes Rare 08/20/21 04:25 Helmet Cells Not Reportable 08/20/21 04:25 [place] Bodies Not Reportable 08/20/21 04:25 [place] Rings Not Reportable 08/20/21 04:25 Cope Cells Not Reportable 08/20/21 04:25 Bite Cells Not Reportable 08/20/21 04:25 Crenated Cell Not Reportable 08/20/21 04:25 Elliptocytes Not Reportable 08/20/21 04:25 Acanthocytes (Spur) Not Reportable 08/20/21 04:25 Rouleaux Not Reportable 08/20/21 04:25 Hemoglobin C Crystals Not Reportable 08/20/21 04:25 Schistocytes Not Reportable 08/20/21 04:25 Malaria parasites Not Reportable 08/20/21 04:25 Marco Bodies Not Reportable 08/20/21 04:25 Hem Pathologist Commnt No 08/20/21 04:25 PT 12.8 Sec. (12.2-14.9) 08/19/21 02:24 INR 0.87 (0.87-1.13) 08/19/21 02:24 APTT 20.0 Sec. (24.2-36.6) L 08/19/21 02:24 ABG pH 7.481 pH Units (7.350-7.450) H 08/24/21 06:00 POC ABG pCO2 30.1 mmHg (32.0-48.0) L 08/22/21 10:16 ABG pCO2 40.8 mm Hg 08/24/21 06:00 POC ABG pO2 109.5 mmHg (83-108) H 08/22/21 10:16 ABG pO2 95.8 mm Hg (80.0-90.0) H 08/24/21 06:00 POC ABG HCO3 23.5 08/22/21 10:16 ABG HCO3 29.8 mmol/L (20.0-26.0) H 08/24/21 06:00 ABG O2 Saturation 97.8 % (95.0-99.0) 08/24/21 06:00 ABG O2 Content 20.9 (0.0-44) 08/22/21 04:40 POC ABG Base Excess 1.2 08/22/21 10:16 ABG Base Excess 5.8 mmol/L (-2.0-3.0) H 08/24/21 06:00 ABG Hemoglobin 12.5 gm/dl (12.0-16.0) 08/24/21 06:00 ABG Oxyhemoglobin 96.8 (94-98) 08/22/21 10:16 ABG Carboxyhemoglobin 0.5 % (0.0-5.0) 08/24/21 06:00 ABG Methemoglobin 0.3 % (0.0-1.5) 08/24/21 06:00 ABG Sodium Not Reportable 08/22/21 10:16 ABG Potassium Not Reportable 08/22/21 10:16 ABG Chloride Not Reportable 08/22/21 10:16 ABG Glucose Not Reportable 08/22/21 10:16 Oxyhemoglobin 97.0 % (95.0-99.0) 08/24/21 06:00 Carboxyhemoglobin 1.1 (0.5-1.5) 08/22/21 10:16 FiO2 30 % 08/24/21 06:00 FiO2 % 30.0 08/22/21 10:16 Sodium 140 mmol/L (137-145) 08/23/21 04:11 Potassium 3.6 mmol/L (3.6-5.0) 08/23/21 04:11 Chloride 101.7 mmol/L (98-107) 08/23/21 04:11 Carbon Dioxide 27 mmol/L (22-30) 08/23/21 04:11 Anion Gap 15 mmol/L 08/23/21 04:11 BUN 17 mg/dL (7-17) 08/23/21 04:11 Creatinine 0.6 mg/dL (0.6-1.2) 08/23/21 04:11 Estimated GFR > 60 ml/min 08/23/21 04:11 BUN/Creatinine Ratio 28 % 08/23/21 04:11 Glucose 148 mg/dL (65-100) H 08/23/21 04:11 POC Glucose 121 mg/dL (70-105) H 08/25/21 05:13 Calcium 8.7 mg/dL (8.4-10.2) 08/23/21 04:11 Phosphorus 2.90 mg/dL (2.5-4.5) 08/23/21 04:11 Magnesium 2.00 mg/dL (1.7-2.3) 08/23/21 04:11 Total Bilirubin 0.40 mg/dL (0.1-1.2) 08/20/21 04:25 AST 23 units/L (5-40) 08/20/21 04:25 ALT 13 units/L (7-56) 08/20/21 04:25 Alkaline Phosphatase 94 units/L (35-129) 08/20/21 04:25 Total Protein 7.3 g/dL (6.3-8.2) 08/20/21 04:25 Albumin 4.0 g/dL (3.9-5) 08/20/21 04:25 Albumin/Globulin Ratio 1.2 % 08/20/21 04:25 Triglycerides 109 mg/dL (2-149) 08/22/21 03:54 Arterial Blood Glucose Not Reportable 08/22/21 10:16 Blood Type A POSITIVE 08/21/21 15:10 Lewis/IV: Voiding Method Indwelling Catheter Active Medications - Current Medications Current Medications: Generic Name Dose Route Start Last Admin Trade Name Freq PRN Reason Stop Dose Admin Acetaminophen 650 mg 08/19/21 06:00 Acetaminophen 325 Mg Tab FEEDTUBE Q4H PRN Pain MILD(1-3)/Fever >100.5/SAEED Albuterol 2.5 mg 08/19/21 04:50 Albuterol 2.5 Mg/3 Ml Nebu IH Q3HRT PRN Shortness Of Breath Albuterol/Ipratropium 1 ampul 08/19/21 08:00 08/25/21 08:21 Ipratropium/Albuterol Sulfate 3 Ml Ampul.Neb IH 1 ampul Q6HRT WARD Administration Alprazolam 0.25 mg 08/19/21 06:00 Alprazolam 0.25 Mg Tab FEEDTUBE BID PRN Anxiety Atorvastatin Calcium 10 mg 08/23/21 22:00 08/24/21 21:46 Atorvastatin 10 Mg Tab FEEDTUBE 10 mg QHS WARD Administration Buspirone HCl 10 mg 08/19/21 10:00 08/25/21 09:11 Buspirone 10 Mg Tab FEEDTUBE 10 mg BID WARD Administration Dextrose 50 ml 08/20/21 10:00 Dextrose 50% In Water (25gm) 50 Ml Syringe IV Q30MIN PRN Hypoglycemia Protocol Diphenhydramine HCl 25 mg 08/24/21 11:40 Diphenhydramine 50 Mg/Ml Vial IV Q6H PRN ANGIOEDEMA Epinephrine 0.5 ml 08/25/21 09:30 Epinephrine Racemic 2.25% 0.5ml Nebu IH 08/25/21 12:00 ONCE@0930 WARD Famotidine 20 mg 08/19/21 10:00 08/25/21 09:10 Famotidine 20 Mg/2 Ml Inj IV 20 mg BID WARD Administration Fentanyl 50 mcg 08/23/21 11:28 08/25/21 07:48 Fentanyl 100 Mcg/2 Ml Inj IV 50 mcg Q10MIN PRN Administration ANALGESIA Folic Acid 1 mg 08/19/21 10:00 08/25/21 09:11 Folic Acid 1 Mg Tab FEEDTUBE 1 mg QDAY WARD Administration Heparin Sodium (Porcine) 5,000 unit 08/19/21 10:00 08/25/21 09:11 Heparin 5,000 Unit/1 Ml Vial SUB-Q 5,000 unit Q12HR WARD Administration Hydralazine HCl 10 mg 08/19/21 05:03 08/24/21 18:09 Hydralazine 20 Mg/1 Ml Inj IV 10 mg Q6H PRN Administration SBP >/=160; DBP >/=100 Propofol 1,000 mg in 100 mls @ 2.722 mls/hr 08/19/21 12:00 08/25/21 08:00 Diprivan 10 Mg/Ml IV 0 mcg/kg/min TITR WARD 0 mls/hr Titration Protocol 5 MCG/KG/MIN Fentanyl Citrate 2,000 mcg in 100 mls @ 2.125 mls/hr 08/23/21 12:00 Fentanyl Drip Premix IV TITR WARD Protocol 1 MCG/KG/HR Insulin Human Regular 0 units 08/20/21 12:00 08/25/21 06:30 Insulin Regular, Human 100 Units/1 Ml SUB-Q Not Given Q6H [facility] Protocol Levothyroxine Sodium 150 mcg 08/19/21 06:00 08/25/21 05:24 Levothyroxine 75 Mcg Tab FEEDTUBE 150 mcg DAILY@0600 [facility] Administration Methylprednisolone Sodium Succinate 125 mg 08/25/21 10:30 08/25/21 10:45 Methylprednisolone Sod Succinate 125 Mg/2 Ml Inj IV 08/25/21 12:30 125 mg ONCE@1030 [facility] Administration Ondansetron HCl 4 mg 08/19/21 04:50 Ondansetron 4 Mg/2 Ml Inj IV Q8H PRN Nausea And Vomiting Senna 8.8 mg 08/23/21 22:00 08/24/21 21:27 Sennosides Oral Liqd 8.8 Mg/5 Ml Oral Liqd FEEDTUBE 8.8 mg QHS WARD Administration Sertraline HCl 25 mg 08/19/21 10:00 08/25/21 09:11 Sertraline 25 Mg Tab FEEDTUBE 25 mg QDAY WARD Administration Sodium Chloride 10 ml 08/19/21 10:00 08/25/21 09:11 Sodium Chloride 0.9% 10 Ml Flush Syringe IV 10 ml BID WARD Administration Sodium Chloride 10 ml 08/19/21 04:50 Sodium Chloride 0.9% 10 Ml Flush Syringe IV PRN PRN LINE FLUSH Sucralfate 1 gm 08/23/21 18:00 08/25/21 05:22 Sucralfate 1 Gm Tab FEEDTUBE 1 gm Q6HR WARD Administration Thiamine HCl 100 mg 08/19/21 10:00 08/25/21 09:11 Thiamine 100 Mg Tab FEEDTUBE 100 mg QDAY WARD Administration Nutrition/Malnutrition Assess - Dietary Evaluation Nutrition/Malnutrition Findings: Nutrition Notes Start: 08/19/21 10:13 Freq: Status: Active Protocol: Document 08/23/21 15:04 LOGAN (Rec: 08/23/21 15:16 [facility] [id number]) Nutrition Notes Initial or Follow up Reassessment Current Diagnosis Hypertension,Respiratory Failure Other Pertinent Diagnosis Angioedema, Depression Current Diet TF - Jevity 1.2 at 45ml/hr Labs/Tests Reviewed Pertinent Medications Solumedrol, Propofol at 16. 329ml/hr (provides 431 kcal), Thiamine, Folvite Height 4 ft 11 in Weight 74 kg [place] Body Weight (kg) 43.18 BMI 32.9 Weight change and time frame Current wt obtained from pt's RN Weight Status Obese Subjective/Other Information Pt remains on vent support and tolerating TF at goal rate. Percent of energy/protein needs met: 94% energy 70% pro Burn Absent Trauma Absent #1 Nutrition Diagnosis Inadequate oral intake Diagnosis Progress(for reassessment Continues documentation) Is patient on ventilator? Yes Is Patient Ambulatory and/or Out of Bed No REE-([facility]-confined to bed) 1375.068 Kcal/Kg value to use for calculation 17 Approximate Energy Requirements Using 1258 kcal/Kg Calculation Used for Recommendations Kcal/kg Additional Notes Pro needs 2g/kg IBW: 86g/day Fluid needs 1ml/kcal Nutrition Intervention Nutrition Support: Change TF formula to Glucerna 1.2 at 45ml/hr with 70ml water flush q4h. Kcal 1,296 Protein (gm) 65 Carbohydrates (gm) 124 Fat (gm) 65 Fluid (mL) 869 Fiber (gm) 17 Goal #1 TF tolerance Goal #2 TF to meet at least 75% energy and pro needs Follow-Up By: 08/25/21 Additional Comments F/U: TF formula change/ tolerance, vent status, propofol <CATRINA MONDRAGON - Last Filed: 08/26/21 07:17> Assessment and Plan Assessment and plan: I saw and evaluated the patient. I agree with the findings and the plan of care as documented in the Nurse Practitioner's~note, with the following corrections and additions. Hospitalist Physical - Constitutional Vitals: Temp Pulse Resp BP Pulse Ox 99 F 68 15 112/57 100 08/26/21 03:15 08/26/21 07:00 08/26/21 07:00 08/26/21 07:00 08/26/21 07:00 Results - Labs CBC & Chem 7: 08/26/21 04:59 08/26/21 04:59 Labs: Laboratory Last Values WBC 12.9 K/mm3 (4.5-11.0) H 08/26/21 04:59 RBC 3.54 M/mm3 (3.65-5.03) L 08/26/21 04:59 Hgb 11.2 gm/dl (10.1-14.3) 08/26/21 04:59 Hct 34.4 % (30.3-42.9) 08/26/21 04:59 MCV 97 fl (79-97) 08/26/21 04:59 MCH 32 pg (28-32) 08/26/21 04:59 MCHC 33 % (30-34) 08/26/21 04:59 RDW 15.6 % (13.2-15.2) H 08/26/21 04:59 Plt Count 260 K/mm3 (140-440) 08/26/21 04:59 Lymph # (Auto) Optical Instrument Assembler 08/19/21 02:24 Add Manual Diff Complete 08/20/21 04:25 Total Counted 100 08/20/21 04:25 Seg Neuts % (Manual) 83.0 % (40.0-70.0) H 08/20/21 04:25 Band Neutrophils % 0 % 08/20/21 04:25 Lymphocytes % (Manual) 14.0 % (13.4-35.0) 08/20/21 04:25 Reactive Lymphs % (Man) 0 % 08/20/21 04:25 Monocytes % (Manual) 3.0 % (0.0-7.3) 08/20/21 04:25 Eosinophils % (Manual) 0 % (0.0-4.3) 08/20/21 04:25 Basophils % (Manual) 0 % (0.0-1.8) 08/20/21 04:25 Metamyelocytes % 0 % 08/20/21 04:25 Myelocytes % 0 % 08/20/21 04:25 Promyelocytes % 0 % 08/20/21 04:25 Blast Cells % 0 % 08/20/21 04:25 Nucleated RBC % Not Reportable 08/20/21 04:25 Seg Neutrophils # Man 7.5 K/mm3 (1.8-7.7) 08/20/21 04:25 Band Neutrophils # 0.0 K/mm3 08/20/21 04:25 Lymphocytes # (Manual) 1.3 K/mm3 (1.2-5.4) 08/20/21 04:25 Abs React Lymphs (Man) 0.0 K/mm3 08/20/21 04:25 Monocytes # (Manual) 0.3 K/mm3 (0.0-0.8) 08/20/21 04:25 Eosinophils # (Manual) 0.0 K/mm3 (0.0-0.4) 08/20/21 04:25 Basophils # (Manual) 0.0 K/mm3 (0.0-0.1) 08/20/21 04:25 Metamyelocytes # 0.0 K/mm3 08/20/21 04:25 Myelocytes # 0.0 K/mm3 08/20/21 04:25 Promyelocytes # 0.0 K/mm3 08/20/21 04:25 Blast Cells # 0.0 K/mm3 08/20/21 04:25 WBC Morphology Not Reportable 08/20/21 04:25 Hypersegmented Neuts Not Reportable 08/20/21 04:25 Hyposegmented Neuts Not Reportable 08/20/21 04:25 Hypogranular Neuts Not Reportable 08/20/21 04:25 Smudge Cells Not Reportable 08/20/21 04:25 Toxic Granulation Not Reportable 08/20/21 04:25 Toxic Vacuolation Not Reportable 08/20/21 04:25 Dohle Bodies Not Reportable 08/20/21 04:25 Pelger-Huet Anomaly Not Reportable 08/20/21 04:25 Erik Rods Not Reportable 08/20/21 04:25 Platelet Estimate Consistent w auto 08/20/21 04:25 Clumped Platelets Not Reportable 08/20/21 04:25 Plt Clumps, EDTA Not Reportable 08/20/21 04:25 Large Platelets Rare 08/20/21 04:25 Giant Platelets Not Reportable 08/20/21 04:25 Platelet Satelliting Not Reportable 08/20/21 04:25 Plt Morphology Comment Not Reportable 08/20/21 04:25 RBC Morphology Not Reportable 08/20/21 04:25 Dimorphic RBCs Not Reportable 08/20/21 04:25 Polychromasia Not Reportable 08/20/21 04:25 Hypochromasia Not Reportable 08/20/21 04:25 Poikilocytosis Rare 08/20/21 04:25 Anisocytosis Rare 08/20/21 04:25 Microcytosis Not Reportable 08/20/21 04:25 Macrocytosis Not Reportable 08/20/21 04:25 Spherocytes Not Reportable 08/20/21 04:25 Pappenheimer Bodies Not Reportable 08/20/21 04:25 Sickle Cells Not Reportable 08/20/21 04:25 Target Cells Not Reportable 08/20/21 04:25 Tear Drop Cells Not Reportable 08/20/21 04:25 Ovalocytes Rare 08/20/21 04:25 Helmet Cells Not Reportable 08/20/21 04:25 [place] Bodies Not Reportable 08/20/21 04:25 [place] Rings Not Reportable 08/20/21 04:25 Caprice Cells Not Reportable 08/20/21 04:25 Bite Cells Not Reportable 08/20/21 04:25 Crenated Cell Not Reportable 08/20/21 04:25 Elliptocytes Not Reportable 08/20/21 04:25 Acanthocytes (Spur) Not Reportable 08/20/21 04:25 Rouleaux Not Reportable 08/20/21 04:25 Hemoglobin C Crystals Not Reportable 08/20/21 04:25 Schistocytes Not Reportable 08/20/21 04:25 Malaria parasites Not Reportable 08/20/21 04:25 Marco Bodies Not Reportable 08/20/21 04:25 Hem Pathologist Commnt No 08/20/21 04:25 PT 12.8 Sec. (12.2-14.9) 08/19/21 02:24 INR 0.87 (0.87-1.13) 08/19/21 02:24 APTT 20.0 Sec. (24.2-36.6) L 08/19/21 02:24 ABG pH 7.533 pH Units (7.350-7.450) H 08/26/21 04:22 POC ABG pCO2 30.1 mmHg (32.0-48.0) L 08/22/21 10:16 ABG pCO2 35.5 mm Hg 08/26/21 04:22 POC ABG pO2 109.5 mmHg (83-108) H 08/22/21 10:16 ABG pO2 76.9 mm Hg (80.0-90.0) L 08/26/21 04:22 POC ABG HCO3 23.5 08/22/21 10:16 ABG HCO3 29.2 mmol/L (20.0-26.0) H 08/26/21 04:22 ABG O2 Saturation 97.0 % (95.0-99.0) 08/26/21 04:22 ABG O2 Content 15.7 (0.0-44) 08/26/21 04:22 POC ABG Base Excess 1.2 08/22/21 10:16 ABG Base Excess 6.4 mmol/L (-2.0-3.0) H 08/26/21 04:22 ABG Hemoglobin 11.6 gm/dl (12.0-16.0) L 08/26/21 04:22 ABG Oxyhemoglobin 96.8 (94-98) 08/22/21 10:16 ABG Carboxyhemoglobin 0.9 % (0.0-5.0) 08/26/21 04:22 ABG Methemoglobin 0.5 % (0.0-1.5) 08/26/21 04:22 ABG Sodium Not Reportable 08/22/21 10:16 ABG Potassium Not Reportable 08/22/21 10:16 ABG Chloride Not Reportable 08/22/21 10:16 ABG Glucose Not Reportable 08/22/21 10:16 Oxyhemoglobin 95.6 % (95.0-99.0) 08/26/21 04:22 Carboxyhemoglobin 1.1 (0.5-1.5) 08/22/21 10:16 FiO2 60 % 08/26/21 04:22 FiO2 % 30.0 08/22/21 10:16 Sodium 143 mmol/L (137-145) 08/26/21 04:59 Potassium 3.5 mmol/L (3.6-5.0) L 08/26/21 04:59 Chloride 103.9 mmol/L (98-107) 08/26/21 04:59 Carbon Dioxide 27 mmol/L (22-30) 08/26/21 04:59 Anion Gap 16 mmol/L 08/26/21 04:59 BUN 28 mg/dL (7-17) H 08/26/21 04:59 Creatinine 0.7 mg/dL (0.6-1.2) 08/26/21 04:59 Estimated GFR > 60 ml/min 08/26/21 04:59 BUN/Creatinine Ratio 40 % 08/26/21 04:59 Glucose 139 mg/dL (65-100) H 08/26/21 04:59 POC Glucose 140 mg/dL (70-105) H 08/26/21 00:04 Calcium 8.7 mg/dL (8.4-10.2) 08/26/21 04:59 Phosphorus 2.90 mg/dL (2.5-4.5) 08/23/21 04:11 Magnesium 2.00 mg/dL (1.7-2.3) 08/23/21 04:11 Total Bilirubin 0.40 mg/dL (0.1-1.2) 08/20/21 04:25 AST 23 units/L (5-40) 08/20/21 04:25 ALT 13 units/L (7-56) 08/20/21 04:25 Alkaline Phosphatase 94 units/L (35-129) 08/20/21 04:25 Total Protein 7.3 g/dL (6.3-8.2) 08/20/21 04:25 Albumin 4.0 g/dL (3.9-5) 08/20/21 04:25 Albumin/Globulin Ratio 1.2 % 08/20/21 04:25 Triglycerides 109 mg/dL (2-149) 08/22/21 03:54 Arterial Blood Glucose Not Reportable 08/22/21 10:16 Blood Type A POSITIVE 08/21/21 15:10 Lewis/IV: Voiding Method Indwelling Catheter Active Medications - Current Medications Current Medications: Generic Name Dose Route Start Last Admin Trade Name Freq PRN Reason Stop Dose Admin Acetaminophen 650 mg 08/19/21 06:00 Acetaminophen 325 Mg Tab FEEDTUBE Q4H PRN Pain MILD(1-3)/Fever >100.5/SAEED Albuterol 2.5 mg 08/19/21 04:50 Albuterol 2.5 Mg/3 Ml Nebu IH Q3HRT PRN Shortness Of Breath Albuterol/Ipratropium 1 ampul 08/19/21 08:00 08/26/21 04:19 Ipratropium/Albuterol Sulfate 3 Ml Ampul.Neb IH 1 ampul Q6HRT WARD Administration Alprazolam 0.25 mg 08/19/21 06:00 Alprazolam 0.25 Mg Tab FEEDTUBE BID PRN Anxiety Atorvastatin Calcium 10 mg 08/23/21 22:00 08/25/21 21:51 Atorvastatin 10 Mg Tab FEEDTUBE 10 mg QHS WARD Administration Buspirone HCl 10 mg 08/19/21 10:00 08/25/21 21:51 Buspirone 10 Mg Tab FEEDTUBE 10 mg BID WARD Administration Dextrose 50 ml 08/20/21 10:00 Dextrose 50% In Water (25gm) 50 Ml Syringe IV Q30MIN PRN Hypoglycemia Protocol Diphenhydramine HCl 25 mg 08/24/21 11:40 Diphenhydramine 50 Mg/Ml Vial IV Q6H PRN ANGIOEDEMA Famotidine 20 mg 08/19/21 10:00 08/25/21 21:52 Famotidine 20 Mg/2 Ml Inj IV 20 mg BID WARD Administration Fentanyl 50 mcg 08/23/21 11:28 08/25/21 07:48 Fentanyl 100 Mcg/2 Ml Inj IV 50 mcg Q10MIN PRN Administration ANALGESIA Folic Acid 1 mg 08/19/21 10:00 08/25/21 09:11 Folic Acid 1 Mg Tab FEEDTUBE 1 mg QDAY WARD Administration Heparin Sodium (Porcine) 5,000 unit 08/19/21 10:00 08/25/21 21:52 Heparin 5,000 Unit/1 Ml Vial SUB-Q 5,000 unit Q12HR [facility] Administration Hydralazine HCl 10 mg 08/19/21 05:03 08/24/21 18:09 Hydralazine 20 Mg/1 Ml Inj IV 10 mg Q6H PRN Administration SBP >/=160; DBP >/=100 Propofol 1,000 mg in 100 mls @ 2.722 mls/hr 08/19/21 12:00 08/26/21 06:39 Diprivan 10 Mg/Ml IV 15 mcg/kg/min TITR WARD 8.165 mls/hr Titration Protocol 5 MCG/KG/MIN Fentanyl Citrate 2,000 mcg in 100 mls @ 2.125 mls/hr 08/23/21 12:00 08/26/21 06:04 Fentanyl Drip Premix IV 2 mcg/kg/hr TITR WARD 4.25 mls/hr Administration Protocol 1 MCG/KG/HR NORepinephrine/NS 8 MG-250 ML 8 mg in 250 mls @ 3.75 mls/hr 08/25/21 15:00 08/25/21 14:30 Norepinephrine/Ns 8 Mg-250 Ml (Double Conc) IV 2 mcg/min TITRATE WARD 3.75 mls/hr Administration Protocol 2 MCG/MIN Insulin Human Regular 0 units 08/20/21 12:00 08/26/21 06:05 Insulin Regular, Human 100 Units/1 Ml SUB-Q Not Given Q6H [facility] Protocol Levothyroxine Sodium 150 mcg 08/19/21 06:00 08/26/21 06:06 Levothyroxine 75 Mcg Tab FEEDTUBE Not Given DAILY@0600 [facility] Methylprednisolone Sodium Succinate 125 mg 08/25/21 14:00 08/26/21 06:05 Methylprednisolone Sod Succinate 125 Mg/2 Ml Inj IV 08/26/21 13:59 125 mg Q8HR WARD Administration Ondansetron HCl 4 mg 08/19/21 04:50 Ondansetron 4 Mg/2 Ml Inj IV Q8H PRN Nausea And Vomiting Senna 8.8 mg 08/23/21 22:00 08/25/21 21:51 Sennosides Oral Liqd 8.8 Mg/5 Ml Oral Liqd FEEDTUBE 8.8 mg QHS WARD Administration Sertraline HCl 25 mg 08/19/21 10:00 08/25/21 09:11 Sertraline 25 Mg Tab FEEDTUBE 25 mg QDAY [facility] Administration Sodium Chloride 10 ml 08/19/21 10:00 08/25/21 22:14 Sodium Chloride 0.9% 10 Ml Flush Syringe IV 10 ml BID WARD Administration Sodium Chloride 10 ml 08/19/21 04:50 Sodium Chloride 0.9% 10 Ml Flush Syringe IV PRN PRN LINE FLUSH Sucralfate 1 gm 08/23/21 18:00 08/26/21 06:05 Sucralfate 1 Gm Tab FEEDTUBE Not Given Q6HR [facility] Thiamine HCl 100 mg 08/19/21 10:00 08/25/21 09:11 Thiamine 100 Mg Tab FEEDTUBE 100 mg QDAY [facility]ARD Administration Nutrition/Malnutrition Assess - Dietary Evaluation Nutrition/Malnutrition Findings: Nutrition Notes Start: 08/19/21 10:13 Freq: Status: Active Protocol: Document 08/25/21 17:57 ABRAHAM (Rec: 08/25/21 18:22 ABRAHAM [id number]) Nutrition Notes Initial or Follow up Brief Note Current Diagnosis Hypertension,Respiratory Failure Other Pertinent Diagnosis Angioedema, Hypothyroidism, Psychosis. Current Diet TF-Glucerna 1.2 Dieudonne @ 45 ml/hr (since D 08/23). Height 4 ft 11 in Weight 74 kg [place] Body Weight (kg) 43.18 BMI 32.9 Weight change and time frame No body weight change reported in 2 days. Weight Status Obese Subjective/Other Information RD consult for routine F/U on TF tolerance. TF continues as prescribed, well tolerated, according to RN notes. Pt extubated on 08/25 am, but on low threshold for reintubation; later reintubation was necessary but Pt refused initially, later Pt gave verbal consent and was reintubated. Propofol not given. Plans to place PEG tube on . Percent of energy/protein needs met: Prescribed TF-Glucerna 1.2 Dieudonne @ 45 ml/hr provides for energy/protein needs (1,269 Kcal/65 g) during LOS, 94% Kcal; 70% AA. #1 Nutrition Diagnosis Inadequate oral intake Diagnosis Progress(for reassessment Continues documentation) Is patient on ventilator? Yes Is Patient Ambulatory and/or Out of Bed No REE-([place]-St. Jeor-confined to bed) 1375.068 Kcal/Kg value to use for calculation 17 Approximate Energy Requirements Using 1258 kcal/Kg Calculation Used for Recommendations Kcal/kg Additional Notes Protein: 2 g/Kg IBW; 86 g/day. Fluids: 1 ml/Kcal, or as per MD. Nutrition Intervention Nutrition Support: Continue TF-Glucerna 1.2 Dieudonne @ 45 ml/hr. Flush: 70 ml water Q 4 hr, or as per MD. Kcal 1,269 Protein (gm) 65 Carbohydrates (gm) 124 Fat (gm) 65 Fluid (mL) 869 Fiber (gm) 17 % RDI: 94% Kcal; 70% AA. Goal #1 Provide at least 75% of energy /protein needs through Enteral Feeding during LOS. Goal #2 Maintain body weight within +/ -3% of admission body weight during LOS. Follow-Up By: 08/30/21 Additional Comments Continue monitoring, Ventilation status, TF tolerance and BM.
--- NOTE | 2021-08-25 13:11 | Event Note ---
Date: 08/25/21 Patient remains with persistent audible stridor despite systemic steroids and racemic EPi. Patient appeared to be in distress with increase WOB and tachypnea, RR in the 50s. SPO2 remains at 94% on 4L NC, however patient voiced that she feels like her throat is tight. Condition thoroughly discussed with patient including reintubation. Patient is currently refusing intubation. Spoke to patient's son, Leno Resendiz, he was notified of patient's condition and refusal of reintubation. He stated that he is coming back to the hospital now to talk to patient. Will continue all current supportive measures at this time. IV steroids scheduled Q8hrs and another dose of racemic Epi. Anesthesia team on standby for possible reintubation. +CCT 30 minutes
[2021-08-25] MEDS: fentaNYL DRIP Premix 2,000 MCG/100 ML BAG IV SCH (14:00)
--- NOTE | 2021-08-25 14:07 | Event Note ---
Date: 08/25/21 Patient's son at the bedside had a discussion with patient. Patient agreed to reintubation. Patient was successfully reintubated, 7.5 tube, by anesthesia at the bedside. Patient is now stable on the vent at 60% FIO2, 6 of PEEP, rate 12, tidal volume 450. Sedation resumed, VSS.
[2021-08-25] MEDS: methylPREDNISolone Sod Succinate 125 MG/2 ML INJ IV SCH ×2 (14:28→21:52)
[2021-08-25] MEDS ORDERED: SODIUM CHLORIDE 0.9% 1000 ML 1,000 ML IV ONE (14:30)
[2021-08-25] MEDS ORDERED: NORepinephrine/NS 8 MG-250 ML 8 MG/250 ML INFUS..BTL IV ONE (14:38)
--- NOTE | 2021-08-25 14:55 | XRay Report ---
CHEST 1 VIEW 08/25/2021 2:07 PM INDICATION / CLINICAL INFORMATION: ett placement. COMPARISON: 08/19/2021 FINDINGS: SUPPORT DEVICES: ET tube and NG tube are satisfactory in position. HEART / MEDIASTINUM: No significant abnormality. LUNGS / PLEURA: Mild increased pulmonary vascularity with mild interstitial prominence extending from the hilum. No pneumothorax. ADDITIONAL FINDINGS: No significant additional findings. IMPRESSION: 1. ET tube is satisfactory in position. Signer Name: Lewis Mahajan MD Signed: 08/25/2021 2:50 PM Workstation Name: [id number]
[2021-08-25] MEDS ORDERED: NORepinephrine/NS 8 MG-250 ML 8 MG/250 ML INFUS..BTL IV SCH (15:00)
--- NOTE | 2021-08-25 15:25 | Event Note ---
Date: 08/25/21 (ICU Intubation) Called to ICU for intubation of patient in respiratory distress 2/2 airway edema. Initially intubated this admission by BUS BOY for angioedema and extubated earlier this morning. Previous airway note reviewed. On arrival, patient awake, alert with increased WOB and stridor. VS BP [175]/[108], P [124], SpO2 [94]% on 4L NC. Hospitalist, RT and RN at bedside. Verbal consent for intubation obtained from patient. Preoxygenated with O2 via AMBU. Versed 4mg IV, ketamine 25mg IV, precedex 30mcg IV, and lidocaine 80mg IV given w/ care to maintain spontaneous ventilation. Easy, atraumatic intubation x 1 attempt with GS [3], grade 1 view. [7.5] oETT secured at [19]cm @ the gums. Placement confirmed with direct visualization, +CO2 color change, +BLBS. Placed on vent per RT. Post intubation VS BP [143]/[99], P [102], SpO2 [100]%. Sedation and CXR orders per ICU team. Approx time: [1341] - [1357] Aurora Jovel MD Anesthesiologist
[2021-08-25 16:22] LABS: ABG Base Excess 6.3 mmol/L (-2.0-3.0); ABG HCO3 32.7 mmol/L (20.0-26.0); ABG Methemoglobin 0.6 % (0.0-1.5); ABG Oxygen Saturation 95.6 % (95.0-99.0); ABG PCO2 56.3 mm Hg; ABG PH 7.382 pH Units (7.350-7.450); ABG PO2 78.3 mm Hg (80.0-90.0)
--- NOTE | 2021-08-25 16:56 | Consultation ---
History of Present Illness Consult date: 08/25/21 Reason for consult: other (airway obstruction due to angioedema) Requesting physician: PEÑA MILLER - History of present illness History of present illness: 76-year-old female with history of hypertension, psych history and hypothyroidism was brought to the hospital on 08/19/21 because of tongue angioede ma which according to the patient the medication mostly because that is amlodipine. According to the EMS at the time when they arrived to the house and to when they arrived to emergency room; the angioedema of the tongue has not changed but it has not gotten worse or gotten any better. Patient's airway is intact to maintain her airway. Mallampati score 4. On patient arrival, patient noted to have tongue angioedema and 50mg IV benadryl, .5mg epi, 125mg IV solumedrol given by EMS.Subsequently patient was getting worse . Subsequently patient was intubated in the ER.'s were going to admit the patient to the critical care unit. We put the patient on Solu-Medrol Pepcid and reconsult critical care evaluation. Pt has contined to have swelling into the tongue and epiglottis. . Extubation attempted earlier today but failed with stridor. Surgical consult is for trach and peg at this time. Past History Past Medical History: hypertension, hypothyroidism, other (History of psychiatric treatment) Past Surgical History: cholecystectomy (Right tibia right ankle surgery), Other Social history: no significant social history Family history: hypertension Medications and Allergies Allergies Allergy/AdvReac Type Severity Reaction Status Date / Time codeine Allergy Swelling Verified 12/02/14 05:36 lisinopril Allergy Angioedema Verified 08/25/21 11:31 penicillin Allergy Swelling Verified 12/02/14 05:36 Home Medications Medication Instructions Recorded Confirmed Last Taken Type Albuterol Mdi (or & Nicu Only) 1 puff IH TID PRN #1 inha 04/07/18 01/25/20 Unknown Rx [ProAir HFA Inhaler] AtorvaSTATin 10 mg PO QHS #30 tablet 04/07/18 01/25/20 Unknown Rx Folic Acid [Folvite] 1 mg PO QDAY #30 tablet 04/07/18 01/25/20 Unknown Rx Levothyroxine [Synthroid] 150 mcg PO DAILY@0600 #30 tablet 04/07/18 01/20/20 Unknown Rx Multivitamin Tab [Multiple Vitamin 1 each PO QDAY 30 Days tablet 04/07/18 01/25/20 Unknown Rx TAB (Theragran)] Sertraline [Zoloft] 25 mg PO QDAY 30 Days tablet 04/07/18 01/25/20 Unknown Rx Thiamine [Vitamin B-1] 100 mg PO QDAY #30 tablet 04/07/18 01/25/20 Unknown Rx ALPRAZolam [Xanax TAB] 0.25 mg PO BID PRN #10 tab 10/28/18 01/25/20 Unknown Rx Dicyclomine [Bentyl] 20 mg PO QID #10 tablet 10/28/18 01/25/20 Unknown Rx Metoclopramide HCl [Reglan TAB] 5 mg PO TIDAC #10 tablet 10/28/18 01/20/20 Unknown Rx Potassium Chloride [K-Dur] 20 meq PO BID #6 tab 10/28/18 01/25/20 Unknown Rx busPIRone [Buspar] 10 mg PO BID 01/20/20 01/20/20 Unknown History Pantoprazole [Protonix TAB] 40 mg PO BID #60 tablet 01/25/20 Unknown Rx Sucralfate [Carafate] 1 gm PO Q6HR #90 tablet 01/25/20 Unknown Rx Cyclobenzaprine [Flexeril] 10 mg PO TID PRN #12 tablet 09/17/20 Unknown Rx Ibuprofen [Motrin 600 MG tab] 600 mg PO Q8H PRN #20 tablet 09/17/20 Unknown Rx traMADoL [Ultram 50 MG tab] 50 mg PO Q6HR PRN #12 tablet 09/17/20 Unknown Rx Active Meds: Active Medications Acetaminophen (Acetaminophen 325 Mg Tab) 650 mg FEEDTUBE Q4H PRN PRN Reason: Pain MILD(1-3)/Fever >100.5/SAEED Albuterol (Albuterol 2.5 Mg/3 Ml Nebu) 2.5 mg IH Q3HRT PRN PRN Reason: Shortness Of Breath Albuterol/Ipratropium (Ipratropium/Albuterol Sulfate 3 Ml Ampul.Neb) 1 ampul IH Q6HRT WARD Last Admin: 08/25/21 15:28 Dose: 1 ampul Alprazolam (Alprazolam 0.25 Mg Tab) 0.25 mg FEEDTUBE BID PRN PRN Reason: Anxiety Atorvastatin Calcium (Atorvastatin 10 Mg Tab) 10 mg FEEDTUBE QHS [facility] Last Admin: 08/24/21 21:46 Dose: 10 mg Buspirone HCl (Buspirone 10 Mg Tab) 10 mg FEEDTUBE BID [facility] Last Admin: 08/25/21 09:11 Dose: 10 mg Dextrose (Dextrose 50% In Water (25gm) 50 Ml Syringe) 50 ml IV Q30MIN PRN; Protocol PRN Reason: Hypoglycemia Diphenhydramine HCl (Diphenhydramine 50 Mg/Ml Vial) 25 mg IV Q6H PRN PRN Reason: ANGIOEDEMA Famotidine (Famotidine 20 Mg/2 Ml Inj) 20 mg IV BID [facility] Last Admin: 08/25/21 09:10 Dose: 20 mg Fentanyl (Fentanyl 100 Mcg/2 Ml Inj) 50 mcg IV Q10MIN PRN PRN Reason: ANALGESIA Last Admin: 08/25/21 07:48 Dose: 50 mcg Folic Acid (Folic Acid 1 Mg Tab) 1 mg FEEDTUBE QDAY [facility] Last Admin: 08/25/21 09:11 Dose: 1 mg Heparin Sodium (Porcine) (Heparin 5,000 Unit/1 Ml Vial) 5,000 unit SUB-Q Q12HR [facility] Last Admin: 08/25/21 09:11 Dose: 5,000 unit Hydralazine HCl (Hydralazine 20 Mg/1 Ml Inj) 10 mg IV Q6H PRN PRN Reason: SBP >/=160; DBP >/=100 Last Admin: 08/24/21 18:09 Dose: 10 mg Propofol (Diprivan 10 Mg/Ml) 1,000 mg in 100 mls @ 2.722 mls/hr IV TITR WARD; Protocol Last Titration: 08/25/21 08:00 Dose: 0 mcg/kg/min, 0 mls/hr Fentanyl Citrate (Fentanyl Drip Premix) 2,000 mcg in 100 mls @ 2.125 mls/hr IV TITR WARD; Protocol NORepinephrine/NS 8 MG-250 ML (Norepinephrine/Ns 8 Mg-250 Ml (Double Conc)) 8 mg in 250 mls @ 3.75 mls/hr IV TITRATE WARD; Protocol Last Admin: 08/25/21 14:30 Dose: 2 mcg/min, 3.75 mls/hr Insulin Human Regular (Insulin Regular, Human 100 Units/1 Ml) 0 units SUB-Q Q6H [facility]; Protocol Last Admin: 08/25/21 12:08 Dose: Not Given Levothyroxine Sodium (Levothyroxine 75 Mcg Tab) 150 mcg FEEDTUBE DAILY@0600 [facility] Last Admin: 08/25/21 05:24 Dose: 150 mcg Methylprednisolone Sodium Succinate (Methylprednisolone Sod Succinate 125 Mg/2 Ml Inj) 125 mg IV Q8HR [facility] Stop: 08/26/21 13:59 Last Admin: 08/25/21 14:28 Dose: 125 mg Ondansetron HCl (Ondansetron 4 Mg/2 Ml Inj) 4 mg IV Q8H PRN PRN Reason: Nausea And Vomiting Senna (Sennosides Oral Liqd 8.8 Mg/5 Ml Oral Liqd) 8.8 mg FEEDTUBE QHS [facility] Last Admin: 08/24/21 21:27 Dose: 8.8 mg Sertraline HCl (Sertraline 25 Mg Tab) 25 mg FEEDTUBE QDAY [facility] Last Admin: 08/25/21 09:11 Dose: 25 mg Sodium Chloride (Sodium Chloride 0.9% 10 Ml Flush Syringe) 10 ml IV BID [facility] Last Admin: 08/25/21 09:11 Dose: 10 ml Sodium Chloride (Sodium Chloride 0.9% 10 Ml Flush Syringe) 10 ml IV PRN PRN PRN Reason: LINE FLUSH Sucralfate (Sucralfate 1 Gm Tab) 1 gm FEEDTUBE Q6HR [facility] Last Admin: 08/25/21 12:07 Dose: Not Given Thiamine HCl (Thiamine 100 Mg Tab) 100 mg FEEDTUBE QDAY [facility] Last Admin: 08/25/21 09:11 Dose: 100 mg Exam Vital Signs Pulse Resp BP Pulse Ox 130 H 24 110/70 100 08/19/21 01:58 08/19/21 01:58 08/19/21 01:58 08/19/21 01:58 - General physical appearance Positive: well developed - Eyes Positive: PERRL - Neck Positive: no masses, no bruits, trachea midline, diffuse goiter - Respiratory Positive: normal expansion - Cardiovascular Rhythm: regular - Extremities Extremities: no ischemia, No edema - Abdomen Abdomen: Present: soft. Absent: tender, masses, guarding Hernia: none - Neurologic Neurologic: alert and oriented to time, place and person, motor strength and sensation are grossly intact, CN II-XII intact Results - Labs 08/23/21 04:11 08/23/21 04:11 Abnormal lab results 08/24/21 08/25/21 08/25/21 Range/Units 11:37 05:13 11:38 ABG pO2 (80.0-90.0) mm Hg ABG HCO3 (20.0-26.0) mmol/L ABG Base Excess (-2.0-3.0) mmol/L ABG Hemoglobin (12.0-16.0) gm/dl Oxyhemoglobin (95.0-99.0) % POC Glucose 154 H 121 H 135 H (70-105) mg/dL 08/25/21 Range/Units 16:00 ABG pO2 78.3 L (80.0-90.0) mm Hg ABG HCO3 32.7 H (20.0-26.0) mmol/L ABG Base Excess 6.3 H (-2.0-3.0) mmol/L ABG Hemoglobin 11.0 L (12.0-16.0) gm/dl Oxyhemoglobin 93.9 L (95.0-99.0) % POC Glucose (70-105) mg/dL Assessment and Plan Pt with angioedema. Plan trach and peg tomorrow or possibly on Monday am.
[2021-08-25] MEDS: SENNOSIDES ORAL LIQD 8.8 MG/5 ML ORAL LIQD FEEDTUBE SCH (21:51)
[2021-08-26] MEDS: INSULIN REGULAR, HUMAN 100 UNITS/1 ML SUB-Q SCH ×4 (00:28→17:27)
[2021-08-26] MEDS: SUCRALFATE 1 GM TAB FEEDTUBE SCH ×4 (00:29→17:26)
[2021-08-26] MEDS: IPRATROPIUM/ALBUTEROL SULFATE 3 ML AMPUL.NEB IH SCH ×2 (04:19→07:32)
[2021-08-26 05:01] LABS: ABG Base Excess 6.4 mmol/L (-2.0-3.0); ABG HCO3 29.2 mmol/L (20.0-26.0); ABG Methemoglobin 0.5 % (0.0-1.5); ABG PCO2 35.5 mm Hg; ABG PH 7.533 pH Units (7.350-7.450); ABG PO2 76.9 mm Hg (80.0-90.0)
[2021-08-26 05:51] LABS: Hematocrit 34.4 % (30.3-42.9); Hemoglobin 11.2 gm/dl (10.1-14.3); Mean Corpuscular HGB Conc 33 % (30-34); Mean Corpuscular Volume 97 fl (79-97); Platelet Count 260 K/mm3 (140-440); Red Blood Count 3.54 M/mm3 (3.65-5.03); Red Cell Distribution Width 15.6 % (13.2-15.2)
[2021-08-26 06:03] LABS: BUN/Creatinine Ratio 40; Blood Urea Nitrogen 28 mg/dL (7-17); Calcium 8.7 mg/dL (8.4-10.2); Hemolysis Index 10
[2021-08-26] MEDS: fentaNYL DRIP Premix 2,000 MCG/100 ML BAG IV SCH ×3 (06:04→21:51)
[2021-08-26] MEDS: methylPREDNISolone Sod Succinate 125 MG/2 ML INJ IV SCH (06:05)
[2021-08-26] MEDS: LEVOTHYROXINE 75 MCG TAB FEEDTUBE SCH (06:06)
[2021-08-26] MEDS ORDERED: POTASSIUM CHLORIDE 20 MEQ PACKET FEEDTUBE SCH (09:00)
[2021-08-26] MEDS: busPIRone 10 MG TAB FEEDTUBE SCH ×2 (09:10→21:53)
[2021-08-26] MEDS: FAMOTIDINE 20 MG/2 ML INJ IV SCH ×2 (09:10→21:51)
[2021-08-26] MEDS: FOLIC ACID 1 MG TAB FEEDTUBE SCH (09:10)
[2021-08-26] MEDS: THIAMINE 100 MG TAB FEEDTUBE SCH (09:10)
[2021-08-26] MEDS: MULTIVITAMIN / MINERAL ORAL LIQUID 15 ML FEEDTUBE SCH (09:10)
[2021-08-26] MEDS: HEPARIN 5,000 UNIT/1 ML VIAL SUB-Q SCH ×2 (09:11→21:54)
[2021-08-26] MEDS: SERTRALINE 25 MG TAB FEEDTUBE SCH (09:12)
--- NOTE | 2021-08-26 11:11 | Progress Note ---
Assessment and Plan 76 y/o female with acute respiratory failure secondary to angioedema 08/26/21: Hold on any further steroids for now. Appreciate Surgery evaluation and plan for artificial airway. Continue current level of sedation. Wean FiO2 for sats >88% and or PaO2 greater than 60 08/25/21: Reviewed CT of neck and looked at images myself. Patient has an 8.0 ET tube and is a female, most likely this tube is large for her airway. She is on minimal support. Would like to do a trial of PSV and then attempt extubation early this am. If re-intubated, will need trach. Can consult surgery here and make them aware of large goiter and see if this is something they can handle, if not, patient would need transfer. 1. Agree with IV steroids 2. Suggest adding scheduled benadryl and pepcid 3. If swelling does not improve in the next 24-48 hours, suggest a trial of FFP 4. Wean FiO2 for sats > 88% CCT 31 minutes Subjective Date of service: 08/26/21 Interval history: Failed extubation after a just a few hours. Re-intubated with 7.5 by Anesthesia, appreciate their assistance. Sedated this am on Diprovan. Objective Vital Signs - 12hr 08/25/21 08/25/21 08/25/21 23:16 23:30 23:45 Temperature Pulse Rate 65 62 67 Pulse Rate [ Bilateral] Pulse Rate [ From Monitor] Respiratory 20 20 20 Rate Respiratory Rate [Bilateral ] Blood Pressure 109/68 118/75 118/80 O2 Sat by Pulse 99 98 99 Oximetry 08/26/21 08/26/21 08/26/21 00:00 00:11 00:15 Temperature 98.9 F Pulse Rate 64 66 65 Pulse Rate [ Bilateral] Pulse Rate [ 80 From Monitor] Respiratory 17 17 Rate Respiratory Rate [Bilateral ] Blood Pressure 113/69 113/66 125/78 O2 Sat by Pulse 98 100 98 Oximetry 08/26/21 08/26/21 08/26/21 00:30 00:45 01:00 Temperature Pulse Rate 64 63 76 Pulse Rate [ Bilateral] Pulse Rate [ From Monitor] Respiratory 20 20 21 Rate Respiratory Rate [Bilateral ] Blood Pressure 121/73 120/74 101/70 O2 Sat by Pulse 98 98 99 Oximetry 08/26/21 08/26/21 08/26/21 01:15 01:30 01:45 Temperature Pulse Rate 66 66 67 Pulse Rate [ Bilateral] Pulse Rate [ From Monitor] Respiratory 20 20 20 Rate Respiratory Rate [Bilateral ] Blood Pressure 118/66 119/68 123/67 O2 Sat by Pulse 98 98 98 Oximetry 08/26/21 08/26/21 08/26/21 02:00 02:15 02:30 Temperature Pulse Rate 67 70 66 Pulse Rate [ Bilateral] Pulse Rate [ From Monitor] Respiratory 20 20 17 Rate Respiratory Rate [Bilateral ] Blood Pressure 117/68 131/74 127/71 O2 Sat by Pulse 99 98 98 Oximetry 08/26/21 08/26/21 08/26/21 02:45 03:00 03:15 Temperature 99 F Pulse Rate 65 66 65 Pulse Rate [ Bilateral] Pulse Rate [ From Monitor] Respiratory 20 19 20 Rate Respiratory Rate [Bilateral ] Blood Pressure 127/72 130/70 127/72 O2 Sat by Pulse 98 98 98 Oximetry 08/26/21 08/26/21 08/26/21 03:30 03:45 04:00 Temperature Pulse Rate 64 64 63 Pulse Rate [ Bilateral] Pulse Rate [ 80 From Monitor] Respiratory 21 20 18 Rate Respiratory Rate [Bilateral ] Blood Pressure 134/74 130/73 139/77 O2 Sat by Pulse 96 97 97 Oximetry 08/26/21 08/26/21 08/26/21 04:15 04:19 04:30 Temperature Pulse Rate 66 87 Pulse Rate [ 69 Bilateral] Pulse Rate [ From Monitor] Respiratory 21 27 H Rate Respiratory 21 Rate [Bilateral ] Blood Pressure 148/77 132/100 O2 Sat by Pulse 96 98 Oximetry 08/26/21 08/26/21 08/26/21 04:36 04:45 05:00 Temperature Pulse Rate 72 70 70 Pulse Rate [ Bilateral] Pulse Rate [ From Monitor] Respiratory 19 19 Rate Respiratory Rate [Bilateral ] Blood Pressure 153/86 150/86 150/84 O2 Sat by Pulse 100 97 98 Oximetry 08/26/21 08/26/21 08/26/21 05:15 05:30 05:45 Temperature Pulse Rate 75 74 76 Pulse Rate [ Bilateral] Pulse Rate [ From Monitor] Respiratory 22 27 H 20 Rate Respiratory Rate [Bilateral ] Blood Pressure 145/91 136/76 150/81 O2 Sat by Pulse 98 99 96 Oximetry 08/26/21 08/26/21 08/26/21 06:00 06:16 06:30 Temperature Pulse Rate 77 88 67 Pulse Rate [ Bilateral] Pulse Rate [ From Monitor] Respiratory 20 19 20 Rate Respiratory Rate [Bilateral ] Blood Pressure 124/64 117/63 117/63 O2 Sat by Pulse 100 100 100 Oximetry 08/26/21 08/26/21 08/26/21 06:46 07:00 07:16 Temperature Pulse Rate 65 68 59 L Pulse Rate [ Bilateral] Pulse Rate [ From Monitor] Respiratory 19 15 20 Rate Respiratory Rate [Bilateral ] Blood Pressure 117/63 112/57 112/57 O2 Sat by Pulse 100 100 100 Oximetry 08/26/21 08/26/21 08/26/21 07:26 07:30 07:31 Temperature 98.7 F Pulse Rate 58 L 55 L Pulse Rate [ 67 Bilateral] Pulse Rate [ From Monitor] Respiratory 20 Rate Respiratory 18 Rate [Bilateral ] Blood Pressure 112/57 112/57 O2 Sat by Pulse 100 100 Oximetry 08/26/21 08/26/21 08/26/21 07:46 08:00 08:16 Temperature Pulse Rate 61 69 58 L Pulse Rate [ Bilateral] Pulse Rate [ 65 From Monitor] Respiratory 19 24 20 Rate Respiratory Rate [Bilateral ] Blood Pressure 112/57 112/57 139/100 O2 Sat by Pulse 100 100 100 Oximetry 08/26/21 08/26/21 08/26/21 08:30 08:46 09:00 Temperature Pulse Rate 57 L 54 L 53 L Pulse Rate [ Bilateral] Pulse Rate [ From Monitor] Respiratory 20 20 20 Rate Respiratory Rate [Bilateral ] Blood Pressure 139/100 139/100 95/53 O2 Sat by Pulse 100 100 100 Oximetry 08/26/21 08/26/21 08/26/21 09:16 09:30 09:46 Temperature Pulse Rate 53 L 52 L 52 L Pulse Rate [ Bilateral] Pulse Rate [ From Monitor] Respiratory 20 20 20 Rate Respiratory Rate [Bilateral ] Blood Pressure 95/53 95/53 95/53 O2 Sat by Pulse 100 100 100 Oximetry 08/26/21 10:00 Temperature Pulse Rate 51 L Pulse Rate [ Bilateral] Pulse Rate [ From Monitor] Respiratory 20 Rate Respiratory Rate [Bilateral ] Blood Pressure 96/55 O2 Sat by Pulse 100 Oximetry Constitutional: no acute distress, other (Sedated) ENT: oropharynx moist, other (Orally intubated significant swelling of the tongue with protrusion) Neck: supple, no lymphadenopathy Effort: other (Supported on ventilator) Ascultation: Bilateral: clear Cardiovascular: regular rate and rhythm Gastrointestinal: normoactive bowel sounds, soft, non-tender, other (Obese) Extremities: no cyanosis, no edema, pink and warm Neurologic: other (Sedated) Psychiatric: other (Sedated) CBC and BMP: 08/26/21 04:59 08/26/21 04:59 ABG, PT/INR, D-dimer: ABG ABG pH 7.533 pH Units (7.350-7.450) H 08/26/21 04:22 POC ABG pCO2 30.1 mmHg (32.0-48.0) L 08/22/21 10:16 ABG pCO2 35.5 mm Hg 08/26/21 04:22 POC ABG pO2 109.5 mmHg (83-108) H 08/22/21 10:16 ABG pO2 76.9 mm Hg (80.0-90.0) L 08/26/21 04:22 POC ABG HCO3 23.5 08/22/21 10:16 ABG O2 Saturation 97.0 % (95.0-99.0) 08/26/21 04:22 PT/INR, D-dimer PT 12.8 Sec. (12.2-14.9) 08/19/21 02:24 INR 0.87 (0.87-1.13) 08/19/21 02:24 Abnormal lab findings: Abnormal Labs 08/19/21 08/19/21 08/19/21 02:24 02:24 02:24 WBC 13.9 H RBC MCV 98 H MCH 33 H RDW 15.7 H Seg Neuts % (Manual) Lymphocytes % (Manual) 52.0 H Lymphocytes # (Manual) 7.2 H APTT 20.0 L ABG pH POC ABG pCO2 POC ABG pO2 ABG pO2 ABG HCO3 ABG O2 Saturation ABG Base Excess ABG Hemoglobin Oxyhemoglobin Potassium 3.3 L Chloride Carbon Dioxide 20 L BUN Glucose 143 H POC Glucose Calcium Total Protein 8.3 H 08/19/21 08/19/21 08/19/21 06:15 10:20 11:10 WBC RBC MCV MCH RDW Seg Neuts % (Manual) Lymphocytes % (Manual) Lymphocytes # (Manual) APTT ABG pH 7.465 H 7.503 H POC ABG pCO2 POC ABG pO2 ABG pO2 177.7 H 90.5 H ABG HCO3 ABG O2 Saturation 99.2 H ABG Base Excess ABG Hemoglobin Oxyhemoglobin Potassium Chloride Carbon Dioxide BUN Glucose POC Glucose 171 H Calcium Total Protein 08/19/21 08/20/21 08/20/21 16:33 00:03 04:25 WBC RBC MCV 98 H MCH 33 H RDW 15.9 H Seg Neuts % (Manual) 83.0 H Lymphocytes % (Manual) Lymphocytes # (Manual) APTT ABG pH POC ABG pCO2 POC ABG pO2 ABG pO2 ABG HCO3 ABG O2 Saturation ABG Base Excess ABG Hemoglobin Oxyhemoglobin Potassium Chloride Carbon Dioxide BUN Glucose POC Glucose 179 H 133 H Calcium Total Protein 08/20/21 08/20/21 08/20/21 04:25 04:30 05:39 WBC RBC MCV MCH RDW Seg Neuts % (Manual) Lymphocytes % (Manual) Lymphocytes # (Manual) APTT ABG pH POC ABG pCO2 POC ABG pO2 ABG pO2 95.5 H ABG HCO3 ABG O2 Saturation ABG Base Excess -2.2 L ABG Hemoglobin Oxyhemoglobin Potassium Chloride Carbon Dioxide 21 L BUN Glucose 143 H POC Glucose 168 H Calcium 8.2 L Total Protein 08/20/21 08/20/21 08/21/21 12:04 16:38 00:12 WBC RBC MCV MCH RDW Seg Neuts % (Manual) Lymphocytes % (Manual) Lymphocytes # (Manual) APTT ABG pH POC ABG pCO2 POC ABG pO2 ABG pO2 ABG HCO3 ABG O2 Saturation ABG Base Excess ABG Hemoglobin Oxyhemoglobin Potassium Chloride Carbon Dioxide BUN Glucose POC Glucose 151 H 135 H 123 H Calcium Total Protein 08/21/21 08/21/21 08/21/21 04:58 04:58 04:59 WBC RBC 3.64 L MCV 100 H MCH RDW 16.4 H Seg Neuts % (Manual) Lymphocytes % (Manual) Lymphocytes # (Manual) APTT ABG pH POC ABG pCO2 POC ABG pO2 ABG pO2 ABG HCO3 ABG O2 Saturation ABG Base Excess -2.6 L ABG Hemoglobin 11.6 L Oxyhemoglobin Potassium 3.5 L Chloride 109.5 H Carbon Dioxide 19 L BUN Glucose 159 H POC Glucose Calcium 8.3 L Total Protein 08/21/21 08/21/21 08/21/21 05:22 11:21 16:29 WBC RBC MCV MCH RDW Seg Neuts % (Manual) Lymphocytes % (Manual) Lymphocytes # (Manual) APTT ABG pH POC ABG pCO2 POC ABG pO2 ABG pO2 ABG HCO3 ABG O2 Saturation ABG Base Excess ABG Hemoglobin Oxyhemoglobin Potassium Chloride Carbon Dioxide BUN Glucose POC Glucose 143 H 133 H 122 H Calcium Total Protein 08/22/21 08/22/21 08/22/21 00:03 03:54 03:54 WBC RBC 3.53 L MCV 100 H MCH 33 H RDW 16.7 H Seg Neuts % (Manual) Lymphocytes % (Manual) Lymphocytes # (Manual) APTT ABG pH POC ABG pCO2 POC ABG pO2 ABG pO2 ABG HCO3 ABG O2 Saturation ABG Base Excess ABG Hemoglobin Oxyhemoglobin Potassium Chloride 107.5 H Carbon Dioxide BUN Glucose 123 H POC Glucose 132 H Calcium Total Protein 08/22/21 08/22/21 08/22/21 04:40 06:08 10:16 WBC RBC MCV MCH RDW Seg Neuts % (Manual) Lymphocytes % (Manual) Lymphocytes # (Manual) APTT ABG pH 7.454 H 7.511 H POC ABG pCO2 30.1 L POC ABG pO2 109.5 H ABG pO2 109.8 H ABG HCO3 ABG O2 Saturation ABG Base Excess ABG Hemoglobin Oxyhemoglobin Potassium Chloride Carbon Dioxide BUN Glucose POC Glucose 137 H Calcium Total Protein 08/22/21 08/22/21 08/22/21 10:27 10:27 11:13 WBC RBC MCV 99 H MCH RDW 16.6 H Seg Neuts % (Manual) Lymphocytes % (Manual) Lymphocytes # (Manual) APTT ABG pH POC ABG pCO2 POC ABG pO2 ABG pO2 ABG HCO3 ABG O2 Saturation ABG Base Excess ABG Hemoglobin Oxyhemoglobin Potassium Chloride Carbon Dioxide BUN Glucose 129 H POC Glucose 125 H Calcium Total Protein 08/22/21 08/23/21 08/23/21 23:39 04:11 04:11 WBC RBC MCV 98 H MCH 33 H RDW 16.1 H Seg Neuts % (Manual) Lymphocytes % (Manual) Lymphocytes # (Manual) APTT ABG pH POC ABG pCO2 POC ABG pO2 ABG pO2 ABG HCO3 ABG O2 Saturation ABG Base Excess ABG Hemoglobin Oxyhemoglobin Potassium Chloride Carbon Dioxide BUN Glucose 148 H POC Glucose 117 H Calcium Total Protein 08/23/21 08/23/21 08/23/21 05:32 11:02 18:04 WBC RBC MCV MCH RDW Seg Neuts % (Manual) Lymphocytes % (Manual) Lymphocytes # (Manual) APTT ABG pH POC ABG pCO2 POC ABG pO2 ABG pO2 ABG HCO3 ABG O2 Saturation ABG Base Excess ABG Hemoglobin Oxyhemoglobin Potassium Chloride Carbon Dioxide BUN Glucose POC Glucose 173 H 146 H 129 H Calcium Total Protein 08/24/21 08/24/21 08/24/21 00:27 05:20 06:00 WBC RBC MCV MCH RDW Seg Neuts % (Manual) Lymphocytes % (Manual) Lymphocytes # (Manual) APTT ABG pH 7.481 H POC ABG pCO2 POC ABG pO2 ABG pO2 95.8 H ABG HCO3 29.8 H ABG O2 Saturation ABG Base Excess 5.8 H ABG Hemoglobin Oxyhemoglobin Potassium Chloride Carbon Dioxide BUN Glucose POC Glucose 146 H 159 H Calcium Total Protein 08/24/21 08/25/21 08/25/21 11:37 05:13 11:38 WBC RBC MCV MCH RDW Seg Neuts % (Manual) Lymphocytes % (Manual) Lymphocytes # (Manual) APTT ABG pH POC ABG pCO2 POC ABG pO2 ABG pO2 ABG HCO3 ABG O2 Saturation ABG Base Excess ABG Hemoglobin Oxyhemoglobin Potassium Chloride Carbon Dioxide BUN Glucose POC Glucose 154 H 121 H 135 H Calcium Total Protein 08/25/21 08/25/21 08/26/21 16:00 17:12 00:04 WBC RBC MCV MCH RDW Seg Neuts % (Manual) Lymphocytes % (Manual) Lymphocytes # (Manual) APTT ABG pH POC ABG pCO2 POC ABG pO2 ABG pO2 78.3 L ABG HCO3 32.7 H ABG O2 Saturation ABG Base Excess 6.3 H ABG Hemoglobin 11.0 L Oxyhemoglobin 93.9 L Potassium Chloride Carbon Dioxide BUN Glucose POC Glucose 179 H 140 H Calcium Total Protein 08/26/21 08/26/21 08/26/21 04:22 04:59 04:59 WBC 12.9 H RBC 3.54 L MCV MCH RDW 15.6 H Seg Neuts % (Manual) Lymphocytes % (Manual) Lymphocytes # (Manual) APTT ABG pH 7.533 H POC ABG pCO2 POC ABG pO2 ABG pO2 76.9 L ABG HCO3 29.2 H ABG O2 Saturation ABG Base Excess 6.4 H ABG Hemoglobin 11.6 L Oxyhemoglobin Potassium 3.5 L Chloride Carbon Dioxide BUN 28 H Glucose 139 H POC Glucose Calcium Total Protein
--- NOTE | 2021-08-26 12:30 | Progress Note ---
<DELICIA LOYA - Last Filed: 08/26/21 17:34> Assessment and Plan Assessment and plan: This is a 76-year-old female with hypertension, psychiatric illness, and hypothyroidism admitted with angioedema and intubated for airway protection Hospital Course to Date: 08/19: Patient started on tube feedings, potassium repleted, started on Benadryl and propofol for sedation. SSI started. Air leak present today however due to swelling of the tongue we will hold off extubation. CCM plans to try FFP in the a.m. if swelling not better. 08/20: Angioedema slightly better so we will hold off FFP today. Updated son at bedside but he did not know what medication she was taking and states that she has not had angioedema in the past. Patient still remains on Versed and propofol. Was given 500 mL bolus overnight for hypotension and will repeat for hypotension. 08/21: Leak test today at bedside with RT shows no leak and will give FFP today. Tongue looks a bit smaller today but given no leak, CCM will not extubate today. Sedated with propofol and versed. Son at bedside today. 08/22: RT performed leak test in the AM and stated there was a leak noted and placed the patient on CPAP. She was sedated on versed at 4 and propofol at 30 but these are off for CPAP. Will removed lewis. Received FFP yesterday. Angioedema is improved. Leak test performed again with Dr. Bailey and no leak audible. Switched back to AC and sedation restarted. 08/23: Remains on the vent and sedated. Cuff leak assessed again today by CCM, still no significant air leak noted. Per CCM keep patient intubated and sedated and continue IV steroids and histamine therapy for now. Fentanyl gtt added, plan to wean off versed for RASS goal of 0 to -1. 08/24: Arousable and appropriate on the vent and on low dose sedation. No cuff leak again today per RT. D/W CCM plan for CT neck w/o contrast for further eval. If CT neck normal, PSV trial and possible extubation tomorrow. 08/25: S/p extubation this am, audible stridor appreciated. S/p X2 doses of RaceEpi and IV solumedrol X1 dose. Patient currently stable on 4L NC, SPO2 at 9 4%. Patient is low threshold for re-intubation, case discussed with anesthesia in case of any decompensation. D/w [facility] patient will need a trach if she is reintubated. Plan of care was thoroughly discussed with patient's son at the bedside by the relay assembler. All question and concerns were addressed at this time. 08/26: Reintubated yesterday due to stridor. General Surgery consulted, plan for possible trach and PEG today. Hypotension resolved this am most likely due to sedation for intubation, VSS today. Wean SPO2 as tolerated for SPO2 above 90%. Continue to monitor and replete electrolytes as needed. Assessment and Plan Neuro:h/o depression -Restart home thiamine, multivitamin, Zoloft, BuSpar and as needed Xanax -Reintubated due to stridor, back on sedation -Continue sedation for RASS goal of 0 to -2 -Avoid delirium -Reorientation as needed -Maintain sleep-wake cycle -As needed analgesia Cardiac:Hypertension -BP stable -resume home antihypertensive regimen when available and if needed -Continue blood pressure monitor per protocol -Hydralazine as needed for SBP above 160 Respiratory: Acute hypoxic respiratory failure 2/2 angioedema -Intubated in the emergency department on 08/19 for airway protection -[facility] consulted, appreciate recommendations -08/25 extubation and reintubated due to stridor -Vent setting:PRVC-60%,6,20,450 -This am ABG noted -CT neck noted- large thyroid goiter and macroglossia reported, see report for full detail -[facility] consulted, appreciate recommendations -VAP bundle addressed -Aspiration precaution HOB above 30 -Daily SBT and SAT trials as tolerated -Daily ABG and CXR per [facility] -Continue SPO2 monitoring for SPO2 goal above 92% -Plan for possible trach and Peg today by General Surgery #Urinary Retention -Lewis reinserted due to urinary retention -Possible bladder training/reassement when more stable -Keep lewis for now Endo: Hyperglycemia h/o hypothyroidism -Continue Q6hrs accucheck with SSI -Avoid hypoglycemia -While critically ill target blood glucose of 140-180 -continue synthroid #GI/DVT Prophylaxis -PPI- Pepcid -Heparin SubQ -SCDs to bilateral lower extremities while in bed The high probability of a clinically significant, sudden or life threatening deterioration of the [Respi, Endo] system(s) required my full and direct attention, intervention and personal management. The aggregate critical care time was [60] minutes. This time is in addition to time spent performing reported procedures but includes the following: [x] Data Review and interpretation [x] Patient assessment and monitoring of vital signs [x] Documentation [x] Medication orders and management Disposition Plan: ICU Total Time Spent with Patient (Minutes): 60 History Interval history: Patient seen and examined at the bedside. Intubated and sedated, on propofol and fentanyl. Reintubated yesterday due to stridor. Hypotensive post intubation yesterday required pressor for a short duration, VSS this am. CARMEN overnight Hospitalist Physical - Physical exam Narrative exam: General appearance: Present: no acute distress, well-nourished, obese, other (Intubated and sedated) - EENT Eyes: Present: PERRL - Neck Neck: Present: normal ROM - Respiratory Respiratory effort: normal Respiratory: bilateral: diminished - Cardiovascular Rhythm: regular Heart Sounds: Present: S1 & S2 - Extremities Extremities: no ischemia, pulses intact, pulses symmetrical Extremity abnormal: edema - Peripheral Assessment Generalized Edema Type: Non-pitting Edema Degree: 1+ Capillary Refill: < 3 seconds Skin Temperature: Warm Peripheral Pulses: within normal limits - Abdominal General gastrointestinal: soft, non-distended, normal bowel sounds - Integumentary Integumentary: Present: warm, dry - Psychiatric Psychiatric: other (Intubated and sedated) - Neurologic Neurologic: moves all extremities, other (Intubated and sedated) - Allied Health Allied health notes reviewed: nursing, case management - Constitutional Vitals: Temp Pulse Resp BP Pulse Ox 98.2 F 53 L 21 96/55 100 08/26/21 11:37 08/26/21 11:24 08/26/21 11:24 08/26/21 11:22 08/26/21 11:24 Results - Labs CBC & Chem 7: 08/26/21 04:59 08/26/21 04:59 Labs: Laboratory Last Values WBC 12.9 K/mm3 (4.5-11.0) H 08/26/21 04:59 RBC 3.54 M/mm3 (3.65-5.03) L 08/26/21 04:59 Hgb 11.2 gm/dl (10.1-14.3) 08/26/21 04:59 Hct 34.4 % (30.3-42.9) 08/26/21 04:59 MCV 97 fl (79-97) 08/26/21 04:59 MCH 32 pg (28-32) 08/26/21 04:59 MCHC 33 % (30-34) 08/26/21 04:59 RDW 15.6 % (13.2-15.2) H 08/26/21 04:59 Plt Count 260 K/mm3 (140-440) 08/26/21 04:59 Lymph # (Auto) Communications Representative 08/19/21 02:24 Add Manual Diff Complete 08/20/21 04:25 Total Counted 100 08/20/21 04:25 Seg Neuts % (Manual) 83.0 % (40.0-70.0) H 08/20/21 04:25 Band Neutrophils % 0 % 08/20/21 04:25 Lymphocytes % (Manual) 14.0 % (13.4-35.0) 08/20/21 04:25 Reactive Lymphs % (Man) 0 % 08/20/21 04:25 Monocytes % (Manual) 3.0 % (0.0-7.3) 08/20/21 04:25 Eosinophils % (Manual) 0 % (0.0-4.3) 08/20/21 04:25 Basophils % (Manual) 0 % (0.0-1.8) 08/20/21 04:25 Metamyelocytes % 0 % 08/20/21 04:25 Myelocytes % 0 % 08/20/21 04:25 Promyelocytes % 0 % 08/20/21 04:25 Blast Cells % 0 % 08/20/21 04:25 Nucleated RBC % Not Reportable 08/20/21 04:25 Seg Neutrophils # Man 7.5 K/mm3 (1.8-7.7) 08/20/21 04:25 Band Neutrophils # 0.0 K/mm3 08/20/21 04:25 Lymphocytes # (Manual) 1.3 K/mm3 (1.2-5.4) 08/20/21 04:25 Abs React Lymphs (Man) 0.0 K/mm3 08/20/21 04:25 Monocytes # (Manual) 0.3 K/mm3 (0.0-0.8) 08/20/21 04:25 Eosinophils # (Manual) 0.0 K/mm3 (0.0-0.4) 08/20/21 04:25 Basophils # (Manual) 0.0 K/mm3 (0.0-0.1) 08/20/21 04:25 Metamyelocytes # 0.0 K/mm3 08/20/21 04:25 Myelocytes # 0.0 K/mm3 08/20/21 04:25 Promyelocytes # 0.0 K/mm3 08/20/21 04:25 Blast Cells # 0.0 K/mm3 08/20/21 04:25 WBC Morphology Not Reportable 08/20/21 04:25 Hypersegmented Neuts Not Reportable 08/20/21 04:25 Hyposegmented Neuts Not Reportable 08/20/21 04:25 Hypogranular Neuts Not Reportable 08/20/21 04:25 Smudge Cells Not Reportable 08/20/21 04:25 Toxic Granulation Not Reportable 08/20/21 04:25 Toxic Vacuolation Not Reportable 08/20/21 04:25 Dohle Bodies Not Reportable 08/20/21 04:25 Pelger-Huet Anomaly Not Reportable 08/20/21 04:25 Erik Rods Not Reportable 08/20/21 04:25 Platelet Estimate Consistent w auto 08/20/21 04:25 Clumped Platelets Not Reportable 08/20/21 04:25 Plt Clumps, EDTA Not Reportable 08/20/21 04:25 Large Platelets Rare 08/20/21 04:25 Giant Platelets Not Reportable 08/20/21 04:25 Platelet Satelliting Not Reportable 08/20/21 04:25 Plt Morphology Comment Not Reportable 08/20/21 04:25 RBC Morphology Not Reportable 08/20/21 04:25 Dimorphic RBCs Not Reportable 08/20/21 04:25 Polychromasia Not Reportable 08/20/21 04:25 Hypochromasia Not Reportable 08/20/21 04:25 Poikilocytosis Rare 08/20/21 04:25 Anisocytosis Rare 08/20/21 04:25 Microcytosis Not Reportable 08/20/21 04:25 Macrocytosis Not Reportable 08/20/21 04:25 Spherocytes Not Reportable 08/20/21 04:25 Pappenheimer Bodies Not Reportable 08/20/21 04:25 Sickle Cells Not Reportable 08/20/21 04:25 Target Cells Not Reportable 08/20/21 04:25 Tear Drop Cells Not Reportable 08/20/21 04:25 Ovalocytes Rare 08/20/21 04:25 Helmet Cells Not Reportable 08/20/21 04:25 [place] Bodies Not Reportable 08/20/21 04:25 [place] Rings Not Reportable 08/20/21 04:25 Caprice Cells Not Reportable 08/20/21 04:25 Bite Cells Not Reportable 08/20/21 04:25 Crenated Cell Not Reportable 08/20/21 04:25 Elliptocytes Not Reportable 08/20/21 04:25 Acanthocytes (Spur) Not Reportable 08/20/21 04:25 Rouleaux Not Reportable 08/20/21 04:25 Hemoglobin C Crystals Not Reportable 08/20/21 04:25 Schistocytes Not Reportable 08/20/21 04:25 Malaria parasites Not Reportable 08/20/21 04:25 Marco Bodies Not Reportable 08/20/21 04:25 Hem Pathologist Commnt No 08/20/21 04:25 PT 12.8 Sec. (12.2-14.9) 08/19/21 02:24 INR 0.87 (0.87-1.13) 08/19/21 02:24 APTT 20.0 Sec. (24.2-36.6) L 08/19/21 02:24 ABG pH 7.533 pH Units (7.350-7.450) H 08/26/21 04:22 POC ABG pCO2 30.1 mmHg (32.0-48.0) L 08/22/21 10:16 ABG pCO2 35.5 mm Hg 08/26/21 04:22 POC ABG pO2 109.5 mmHg (83-108) H 08/22/21 10:16 ABG pO2 76.9 mm Hg (80.0-90.0) L 08/26/21 04:22 POC ABG HCO3 23.5 08/22/21 10:16 ABG HCO3 29.2 mmol/L (20.0-26.0) H 08/26/21 04:22 ABG O2 Saturation 97.0 % (95.0-99.0) 08/26/21 04:22 ABG O2 Content 15.7 (0.0-44) 08/26/21 04:22 POC ABG Base Excess 1.2 08/22/21 10:16 ABG Base Excess 6.4 mmol/L (-2.0-3.0) H 08/26/21 04:22 ABG Hemoglobin 11.6 gm/dl (12.0-16.0) L 08/26/21 04:22 ABG Oxyhemoglobin 96.8 (94-98) 08/22/21 10:16 ABG Carboxyhemoglobin 0.9 % (0.0-5.0) 08/26/21 04:22 ABG Methemoglobin 0.5 % (0.0-1.5) 08/26/21 04:22 ABG Sodium Not Reportable 08/22/21 10:16 ABG Potassium Not Reportable 08/22/21 10:16 ABG Chloride Not Reportable 08/22/21 10:16 ABG Glucose Not Reportable 08/22/21 10:16 Oxyhemoglobin 95.6 % (95.0-99.0) 08/26/21 04:22 Carboxyhemoglobin 1.1 (0.5-1.5) 08/22/21 10:16 FiO2 60 % 08/26/21 04:22 FiO2 % 30.0 08/22/21 10:16 Sodium 143 mmol/L (137-145) 08/26/21 04:59 Potassium 3.5 mmol/L (3.6-5.0) L 08/26/21 04:59 Chloride 103.9 mmol/L (98-107) 08/26/21 04:59 Carbon Dioxide 27 mmol/L (22-30) 08/26/21 04:59 Anion Gap 16 mmol/L 08/26/21 04:59 BUN 28 mg/dL (7-17) H 08/26/21 04:59 Creatinine 0.7 mg/dL (0.6-1.2) 08/26/21 04:59 Estimated GFR > 60 ml/min 08/26/21 04:59 BUN/Creatinine Ratio 40 % 08/26/21 04:59 Glucose 139 mg/dL (65-100) H 08/26/21 04:59 POC Glucose 140 mg/dL (70-105) H 08/26/21 00:04 Calcium 8.7 mg/dL (8.4-10.2) 08/26/21 04:59 Phosphorus 2.90 mg/dL (2.5-4.5) 08/23/21 04:11 Magnesium 2.00 mg/dL (1.7-2.3) 08/23/21 04:11 Total Bilirubin 0.40 mg/dL (0.1-1.2) 08/20/21 04:25 AST 23 units/L (5-40) 08/20/21 04:25 ALT 13 units/L (7-56) 08/20/21 04:25 Alkaline Phosphatase 94 units/L (35-129) 08/20/21 04:25 Total Protein 7.3 g/dL (6.3-8.2) 08/20/21 04:25 Albumin 4.0 g/dL (3.9-5) 08/20/21 04:25 Albumin/Globulin Ratio 1.2 % 08/20/21 04:25 Triglycerides 109 mg/dL (2-149) 08/22/21 03:54 Arterial Blood Glucose Not Reportable 08/22/21 10:16 Blood Type A POSITIVE 08/21/21 15:10 Lewis/IV: Voiding Method Indwelling Catheter Active Medications - Current Medications Current Medications: Generic Name Dose Route Start Last Admin Trade Name Freq PRN Reason Stop Dose Admin Acetaminophen 650 mg 08/19/21 06:00 Acetaminophen 325 Mg Tab FEEDTUBE Q4H PRN Pain MILD(1-3)/Fever >100.5/SAEED Albuterol 2.5 mg 08/19/21 04:50 Albuterol 2.5 Mg/3 Ml Nebu IH Q3HRT PRN Shortness Of Breath Alprazolam 0.25 mg 08/19/21 06:00 Alprazolam 0.25 Mg Tab FEEDTUBE BID PRN Anxiety Atorvastatin Calcium 10 mg 08/23/21 22:00 08/25/21 21:51 Atorvastatin 10 Mg Tab FEEDTUBE 10 mg QHS WARD Administration Buspirone HCl 10 mg 08/19/21 10:00 08/26/21 09:10 Buspirone 10 Mg Tab FEEDTUBE 10 mg BID WARD Administration Dextrose 50 ml 08/20/21 10:00 Dextrose 50% In Water (25gm) 50 Ml Syringe IV Q30MIN PRN Hypoglycemia Protocol Famotidine 20 mg 08/19/21 10:00 08/26/21 09:10 Famotidine 20 Mg/2 Ml Inj IV 20 mg BID WARD Administration Fentanyl 50 mcg 08/23/21 11:28 08/25/21 07:48 Fentanyl 100 Mcg/2 Ml Inj IV 50 mcg Q10MIN PRN Administration ANALGESIA Folic Acid 1 mg 08/19/21 10:00 08/26/21 09:10 Folic Acid 1 Mg Tab FEEDTUBE 1 mg QDAY WARD Administration Heparin Sodium (Porcine) 5,000 unit 08/19/21 10:00 08/26/21 09:11 Heparin 5,000 Unit/1 Ml Vial SUB-Q Not Given Q12HR [facility] Hydralazine HCl 10 mg 08/19/21 05:03 08/24/21 18:09 Hydralazine 20 Mg/1 Ml Inj IV 10 mg Q6H PRN Administration SBP >/=160; DBP >/=100 Propofol 1,000 mg in 100 mls @ 2.722 mls/hr 08/19/21 12:00 08/26/21 09:59 Diprivan 10 Mg/Ml IV 15 mcg/kg/min TITR WARD 8.165 mls/hr Titration Protocol 5 MCG/KG/MIN Fentanyl Citrate 2,000 mcg in 100 mls @ 2.125 mls/hr 08/23/21 12:00 08/26/21 08:02 Fentanyl Drip Premix IV 3 mcg/kg/hr TITR WARD 6.375 mls/hr Titration Protocol 1 MCG/KG/HR NORepinephrine/NS 8 MG-250 ML 8 mg in 250 mls @ 3.75 mls/hr 08/25/21 15:00 08/25/21 14:30 Norepinephrine/Ns 8 Mg-250 Ml (Double Conc) IV 2 mcg/min TITRATE WARD 3.75 mls/hr Administration Protocol 2 MCG/MIN Insulin Human Regular 0 units 08/20/21 12:00 08/26/21 11:38 Insulin Regular, Human 100 Units/1 Ml SUB-Q Not Given Q6H [facility] Protocol Levothyroxine Sodium 150 mcg 08/19/21 06:00 08/26/21 06:06 Levothyroxine 75 Mcg Tab FEEDTUBE Not Given DAILY@0600 [facility] Methylprednisolone Sodium Succinate 125 mg 08/25/21 14:00 08/26/21 06:05 Methylprednisolone Sod Succinate 125 Mg/2 Ml Inj IV 08/26/21 13:59 125 mg Q8HR WARD Administration Ondansetron HCl 4 mg 08/19/21 04:50 Ondansetron 4 Mg/2 Ml Inj IV Q8H PRN Nausea And Vomiting Potassium Chloride 40 meq 08/26/21 09:00 08/26/21 09:10 Potassium Chloride 20 Meq Packet FEEDTUBE 08/26/21 13:00 40 meq ONCE@0900 WARD Administration Senna 8.8 mg 08/23/21 22:00 08/25/21 21:51 Sennosides Oral Liqd 8.8 Mg/5 Ml Oral Liqd FEEDTUBE 8.8 mg QHS WARD Administration Sertraline HCl 25 mg 08/19/21 10:00 08/26/21 09:12 Sertraline 25 Mg Tab FEEDTUBE 25 mg QDAY WARD Administration Sodium Chloride 10 ml 08/19/21 10:00 08/26/21 09:10 Sodium Chloride 0.9% 10 Ml Flush Syringe IV 10 ml BID WARD Administration Sodium Chloride 10 ml 08/19/21 04:50 Sodium Chloride 0.9% 10 Ml Flush Syringe IV PRN PRN LINE FLUSH Sucralfate 1 gm 08/23/21 18:00 08/26/21 11:37 Sucralfate 1 Gm Tab FEEDTUBE Not Given Q6HR WARD Thiamine HCl 100 mg 08/19/21 10:00 08/26/21 09:10 Thiamine 100 Mg Tab FEEDTUBE 100 mg QDAY WARD Administration Nutrition/Malnutrition Assess - Dietary Evaluation Nutrition/Malnutrition Findings: Nutrition Notes Start: 08/19/21 10:13 Freq: Status: Active Protocol: Document 08/25/21 17:57 ABRAHAM (Rec: 08/25/21 18:22 ABRAHAM [id number]) Nutrition Notes Initial or Follow up Brief Note Current Diagnosis Hypertension,Respiratory Failure Other Pertinent Diagnosis Angioedema, Hypothyroidism, Psychosis. Current Diet TF-Glucerna 1.2 Dieudonne @ 45 ml/hr (since D 08/23). Height 4 ft 11 in Weight 74 kg Cobb Body Weight (kg) 43.18 BMI 32.9 Weight change and time frame No body weight change reported in 2 days. Weight Status Obese Subjective/Other Information RD consult for routine F/U on TF tolerance. TF continues as prescribed, well tolerated, according to RN notes. Pt extubated on 08/25 am, but on low threshold for reintubation; later reintubation was necessary but Pt refused initially, later Pt gave verbal consent and was reintubated. Propofol not given. Plans to place PEG tube on . Percent of energy/protein needs met: Prescribed TF-Glucerna 1.2 Dieudonne @ 45 ml/hr provides for energy/protein needs (1,269 Kcal/65 g) during LOS, 94% Kcal; 70% AA. #1 Nutrition Diagnosis Inadequate oral intake Diagnosis Progress(for reassessment Continues documentation) Is patient on ventilator? Yes Is Patient Ambulatory and/or Out of Bed No REE-([facility]-confined to bed) 1375.068 Kcal/Kg value to use for calculation 17 Approximate Energy Requirements Using 1258 kcal/Kg Calculation Used for Recommendations Kcal/kg Additional Notes Protein: 2 g/Kg IBW; 86 g/day. Fluids: 1 ml/Kcal, or as per MD. Nutrition Intervention Nutrition Support: Continue TF-Glucerna 1.2 Dieudonne @ 45 ml/hr. Flush: 70 ml water Q 4 hr, or as per MD. Kcal 1,269 Protein (gm) 65 Carbohydrates (gm) 124 Fat (gm) 65 Fluid (mL) 869 Fiber (gm) 17 % RDI: 94% Kcal; 70% AA. Goal #1 Provide at least 75% of energy /protein needs through Enteral Feeding during LOS. Goal #2 Maintain body weight within +/ -3% of admission body weight during LOS. Follow-Up By: 08/30/21 Additional Comments Continue monitoring, Ventilation status, TF tolerance and BM. <CATRINA MONDRAGON - Last Filed: 08/27/21 07:24> Assessment and Plan Assessment and plan: I saw and evaluated the patient. I agree with the findings and the plan of care as documented in the Nurse Practitioner's~note, with the following corrections and additions. Hospitalist Physical - Constitutional Vitals: Temp Pulse Resp BP Pulse Ox 98.6 F 73 20 112/64 98 08/27/21 04:00 08/27/21 05:00 08/27/21 05:00 08/27/21 05:00 08/27/21 05:00 Results - Labs CBC & Chem 7: 05/13/22 04:25 08/27/21 04:25 Labs: Laboratory Last Values WBC 12.4 K/mm3 (4.5-11.0) H 08/27/21 04:25 RBC 3.39 M/mm3 (3.65-5.03) L 08/27/21 04:25 Hgb 10.9 gm/dl (10.1-14.3) 08/27/21 04:25 Hct 33.1 % (30.3-42.9) 08/27/21 04:25 MCV 98 fl (79-97) H 08/27/21 04:25 MCH 32 pg (28-32) 08/27/21 04:25 MCHC 33 % (30-34) 08/27/21 04:25 RDW 15.8 % (13.2-15.2) H 08/27/21 04:25 Plt Count 248 K/mm3 (140-440) 08/27/21 04:25 Lymph # (Auto) Communications Representative 08/19/21 02:24 Add Manual Diff Complete 08/20/21 04:25 Total Counted 100 08/20/21 04:25 Seg Neuts % (Manual) 83.0 % (40.0-70.0) H 08/20/21 04:25 Band Neutrophils % 0 % 08/20/21 04:25 Lymphocytes % (Manual) 14.0 % (13.4-35.0) 08/20/21 04:25 Reactive Lymphs % (Man) 0 % 08/20/21 04:25 Monocytes % (Manual) 3.0 % (0.0-7.3) 08/20/21 04:25 Eosinophils % (Manual) 0 % (0.0-4.3) 08/20/21 04:25 Basophils % (Manual) 0 % (0.0-1.8) 08/20/21 04:25 Metamyelocytes % 0 % 08/20/21 04:25 Myelocytes % 0 % 08/20/21 04:25 Promyelocytes % 0 % 08/20/21 04:25 Blast Cells % 0 % 08/20/21 04:25 Nucleated RBC % Not Reportable 08/20/21 04:25 Seg Neutrophils # Man 7.5 K/mm3 (1.8-7.7) 08/20/21 04:25 Band Neutrophils # 0.0 K/mm3 08/20/21 04:25 Lymphocytes # (Manual) 1.3 K/mm3 (1.2-5.4) 08/20/21 04:25 Abs React Lymphs (Man) 0.0 K/mm3 08/20/21 04:25 Monocytes # (Manual) 0.3 K/mm3 (0.0-0.8) 08/20/21 04:25 Eosinophils # (Manual) 0.0 K/mm3 (0.0-0.4) 08/20/21 04:25 Basophils # (Manual) 0.0 K/mm3 (0.0-0.1) 08/20/21 04:25 Metamyelocytes # 0.0 K/mm3 08/20/21 04:25 Myelocytes # 0.0 K/mm3 08/20/21 04:25 Promyelocytes # 0.0 K/mm3 08/20/21 04:25 Blast Cells # 0.0 K/mm3 08/20/21 04:25 WBC Morphology Not Reportable 08/20/21 04:25 Hypersegmented Neuts Not Reportable 08/20/21 04:25 Hyposegmented Neuts Not Reportable 08/20/21 04:25 Hypogranular Neuts Not Reportable 08/20/21 04:25 Smudge Cells Not Reportable 08/20/21 04:25 Toxic Granulation Not Reportable 08/20/21 04:25 Toxic Vacuolation Not Reportable 08/20/21 04:25 Dohle Bodies Not Reportable 08/20/21 04:25 Pelger-Huet Anomaly Not Reportable 08/20/21 04:25 Erik Rods Not Reportable 08/20/21 04:25 Platelet Estimate Consistent w auto 08/20/21 04:25 Clumped Platelets Not Reportable 08/20/21 04:25 Plt Clumps, EDTA Not Reportable 08/20/21 04:25 Large Platelets Rare 08/20/21 04:25 Giant Platelets Not Reportable 08/20/21 04:25 Platelet Satelliting Not Reportable 08/20/21 04:25 Plt Morphology Comment Not Reportable 08/20/21 04:25 RBC Morphology Not Reportable 08/20/21 04:25 Dimorphic RBCs Not Reportable 08/20/21 04:25 Polychromasia Not Reportable 08/20/21 04:25 Hypochromasia Not Reportable 08/20/21 04:25 Poikilocytosis Rare 08/20/21 04:25 Anisocytosis Rare 08/20/21 04:25 Microcytosis Not Reportable 08/20/21 04:25 Macrocytosis Not Reportable 08/20/21 04:25 Spherocytes Not Reportable 08/20/21 04:25 Pappenheimer Bodies Not Reportable 08/20/21 04:25 Sickle Cells Not Reportable 08/20/21 04:25 Target Cells Not Reportable 08/20/21 04:25 Tear Drop Cells Not Reportable 08/20/21 04:25 Ovalocytes Rare 08/20/21 04:25 Helmet Cells Not Reportable 08/20/21 04:25 [place] Bodies Not Reportable 08/20/21 04:25 [place] Rings Not Reportable 08/20/21 04:25 Caprice Cells Not Reportable 08/20/21 04:25 Bite Cells Not Reportable 08/20/21 04:25 Crenated Cell Not Reportable 08/20/21 04:25 Elliptocytes Not Reportable 08/20/21 04:25 Acanthocytes (Spur) Not Reportable 08/20/21 04:25 Rouleaux Not Reportable 08/20/21 04:25 Hemoglobin C Crystals Not Reportable 08/20/21 04:25 Schistocytes Not Reportable 08/20/21 04:25 Malaria parasites Not Reportable 08/20/21 04:25 Marco Bodies Not Reportable 08/20/21 04:25 Hem Pathologist Commnt No 08/20/21 04:25 PT 12.8 Sec. (12.2-14.9) 08/19/21 02:24 INR 0.87 (0.87-1.13) 08/19/21 02:24 APTT 20.0 Sec. (24.2-36.6) L 08/19/21 02:24 ABG pH 7.516 pH Units (7.350-7.450) H 08/27/21 03:56 POC ABG pCO2 30.1 mmHg (32.0-48.0) L 08/22/21 10:16 ABG pCO2 34.4 mm Hg 08/27/21 03:56 POC ABG pO2 109.5 mmHg (83-108) H 08/22/21 10:16 ABG pO2 117.0 mm Hg (80.0-90.0) H 08/27/21 03:56 POC ABG HCO3 23.5 08/22/21 10:16 ABG HCO3 27.2 mmol/L (20.0-26.0) H 08/27/21 03:56 ABG O2 Saturation 98.4 % (95.0-99.0) 08/27/21 03:56 ABG O2 Content 15.3 (0.0-44) 08/27/21 03:56 POC ABG Base Excess 1.2 08/22/21 10:16 ABG Base Excess 4.3 mmol/L (-2.0-3.0) H 08/27/21 03:56 ABG Hemoglobin 11.1 gm/dl (12.0-16.0) L 08/27/21 03:56 ABG Oxyhemoglobin 96.8 (94-98) 08/22/21 10:16 ABG Carboxyhemoglobin 1.0 % (0.0-5.0) 08/27/21 03:56 ABG Methemoglobin 0.5 % (0.0-1.5) 08/27/21 03:56 ABG Sodium Not Reportable 08/22/21 10:16 ABG Potassium Not Reportable 08/22/21 10:16 ABG Chloride Not Reportable 08/22/21 10:16 ABG Glucose Not Reportable 08/22/21 10:16 Oxyhemoglobin 96.9 % (95.0-99.0) 08/27/21 03:56 Carboxyhemoglobin 1.1 (0.5-1.5) 08/22/21 10:16 FiO2 40 % 08/27/21 03:56 FiO2 % 30.0 08/22/21 10:16 Sodium 145 mmol/L (137-145) 08/27/21 04:25 Potassium 3.7 mmol/L (3.6-5.0) 08/27/21 04:25 Chloride 106.6 mmol/L (98-107) 08/27/21 04:25 Carbon Dioxide 27 mmol/L (22-30) 08/27/21 04:25 Anion Gap 15 mmol/L 08/27/21 04:25 BUN 27 mg/dL (7-17) H 08/27/21 04:25 Creatinine 0.7 mg/dL (0.6-1.2) 08/27/21 04:25 Estimated GFR > 60 ml/min 08/27/21 04:25 BUN/Creatinine Ratio 39 % 08/27/21 04:25 Glucose 93 mg/dL (65-100) 08/27/21 04:25 POC Glucose 88 mg/dL (70-105) 08/27/21 05:38 Calcium 9.2 mg/dL (8.4-10.2) 08/27/21 04:25 Phosphorus 2.10 mg/dL (2.5-4.5) L 08/27/21 04:25 Magnesium 2.50 mg/dL (1.7-2.3) H 08/27/21 04:25 Total Bilirubin 0.40 mg/dL (0.1-1.2) 08/20/21 04:25 AST 23 units/L (5-40) 08/20/21 04:25 ALT 13 units/L (7-56) 08/20/21 04:25 Alkaline Phosphatase 94 units/L (35-129) 08/20/21 04:25 Total Protein 7.3 g/dL (6.3-8.2) 08/20/21 04:25 Albumin 4.0 g/dL (3.9-5) 08/20/21 04:25 Albumin/Globulin Ratio 1.2 % 08/20/21 04:25 Triglycerides 200 mg/dL (2-149) H 08/27/21 04:25 Arterial Blood Glucose Not Reportable 08/22/21 10:16 Blood Type A POSITIVE 08/21/21 15:10 Lewis/IV: Voiding Method Indwelling Catheter Active Medications - Current Medications Current Medications: Generic Name Dose Route Start Last Admin Trade Name Freq PRN Reason Stop Dose Admin Acetaminophen 650 mg 08/19/21 06:00 Acetaminophen 325 Mg Tab FEEDTUBE Q4H PRN Pain MILD(1-3)/Fever >100.5/SAEED Albuterol 2.5 mg 08/19/21 04:50 Albuterol 2.5 Mg/3 Ml Nebu IH Q3HRT PRN Shortness Of Breath Alprazolam 0.25 mg 08/19/21 06:00 Alprazolam 0.25 Mg Tab FEEDTUBE BID PRN Anxiety Atorvastatin Calcium 10 mg 08/23/21 22:00 08/26/21 21:53 Atorvastatin 10 Mg Tab FEEDTUBE Not Given QHS WARD Buspirone HCl 10 mg 08/19/21 10:00 08/26/21 21:53 Buspirone 10 Mg Tab FEEDTUBE Not Given BID WARD Dextrose 50 ml 08/20/21 10:00 Dextrose 50% In Water (25gm) 50 Ml Syringe IV Q30MIN PRN Hypoglycemia Protocol Famotidine 20 mg 08/19/21 10:00 08/26/21 21:51 Famotidine 20 Mg/2 Ml Inj IV 20 mg BID WARD Administration Fentanyl 50 mcg 08/23/21 11:28 08/25/21 07:48 Fentanyl 100 Mcg/2 Ml Inj IV 50 mcg Q10MIN PRN Administration ANALGESIA Folic Acid 1 mg 08/19/21 10:00 08/26/21 09:10 Folic Acid 1 Mg Tab FEEDTUBE 1 mg QDAY WARD Administration Heparin Sodium (Porcine) 5,000 unit 08/19/21 10:00 08/26/21 21:54 Heparin 5,000 Unit/1 Ml Vial SUB-Q Not Given Q12HR WARD Hydralazine HCl 10 mg 08/19/21 05:03 08/24/21 18:09 Hydralazine 20 Mg/1 Ml Inj IV 10 mg Q6H PRN Administration SBP >/=160; DBP >/=100 Propofol 1,000 mg in 100 mls @ 2.722 mls/hr 08/19/21 12:00 08/26/21 23:33 Diprivan 10 Mg/Ml IV 15 mcg/kg/min TITR WARD 8.165 mls/hr Administration Protocol 5 MCG/KG/MIN Fentanyl Citrate 2,000 mcg in 100 mls @ 2.125 mls/hr 08/23/21 12:00 08/27/21 07:20 Fentanyl Drip Premix IV 3 mcg/kg/hr TITR WARD 6.375 mls/hr Administration Protocol 1 MCG/KG/HR NORepinephrine/NS 8 MG-250 ML 8 mg in 250 mls @ 3.75 mls/hr 08/25/21 15:00 08/25/21 14:30 Norepinephrine/Ns 8 Mg-250 Ml (Double Conc) IV 2 mcg/min TITRATE WARD 3.75 mls/hr Administration Protocol 2 MCG/MIN Insulin Human Regular 0 units 08/20/21 12:00 08/27/21 02:50 Insulin Regular, Human 100 Units/1 Ml SUB-Q Not Given Q6H WARD Protocol Levothyroxine Sodium 150 mcg 08/19/21 06:00 08/27/21 05:03 Levothyroxine 75 Mcg Tab FEEDTUBE Not Given DAILY@0600 WARD Ondansetron HCl 4 mg 08/19/21 04:50 Ondansetron 4 Mg/2 Ml Inj IV Q8H PRN Nausea And Vomiting Senna 8.8 mg 08/23/21 22:00 08/26/21 21:54 Sennosides Oral Liqd 8.8 Mg/5 Ml Oral Liqd FEEDTUBE Not Given QHS WARD Sertraline HCl 25 mg 08/19/21 10:00 08/26/21 09:12 Sertraline 25 Mg Tab FEEDTUBE 25 mg QDAY WARD Administration Sodium Chloride 10 ml 08/19/21 10:00 08/26/21 21:55 Sodium Chloride 0.9% 10 Ml Flush Syringe IV 10 ml BID WARD Administration Sodium Chloride 10 ml 08/19/21 04:50 Sodium Chloride 0.9% 10 Ml Flush Syringe IV PRN PRN LINE FLUSH Sucralfate 1 gm 08/23/21 18:00 08/27/21 02:50 Sucralfate 1 Gm Tab FEEDTUBE Not Given Q6HR WARD Thiamine HCl 100 mg 08/19/21 10:00 08/26/21 09:10 Thiamine 100 Mg Tab FEEDTUBE 100 mg QDAY WARD Administration Nutrition/Malnutrition Assess - Dietary Evaluation Nutrition/Malnutrition Findings: Nutrition Notes Start: 08/19/21 10:13 Freq: Status: Active Protocol: Document 08/25/21 17:57 ABRAHAM (Rec: 08/25/21 18:22 ABRAHAM [id number]) Nutrition Notes Initial or Follow up Brief Note Current Diagnosis Hypertension,Respiratory Failure Other Pertinent Diagnosis Angioedema, Hypothyroidism, Psychosis. Current Diet TF-Glucerna 1.2 Dieudonne @ 45 ml/hr (since D 08/23). Height 4 ft 11 in Weight 74 kg Cobb Body Weight (kg) 43.18 BMI 32.9 Weight change and time frame No body weight change reported in 2 days. Weight Status Obese Subjective/Other Information RD consult for routine F/U on TF tolerance. TF continues as prescribed, well tolerated, according to RN notes. Pt extubated on 08/25 am, but on low threshold for reintubation; later reintubation was necessary but Pt refused initially, later Pt gave verbal consent and was reintubated. Propofol not given. Plans to place PEG tube on . Percent of energy/protein needs met: Prescribed TF-Glucerna 1.2 Dieudonne @ 45 ml/hr provides for energy/protein needs (1,269 Kcal/65 g) during LOS, 94% Kcal; 70% AA. #1 Nutrition Diagnosis Inadequate oral intake Diagnosis Progress(for reassessment Continues documentation) Is patient on ventilator? Yes Is Patient Ambulatory and/or Out of Bed No REE-([facility]-confined to bed) 1375.068 Kcal/Kg value to use for calculation 17 Approximate Energy Requirements Using 1258 kcal/Kg Calculation Used for Recommendations Kcal/kg Additional Notes Protein: 2 g/Kg IBW; 86 g/day. Fluids: 1 ml/Kcal, or as per MD. Nutrition Intervention Nutrition Support: Continue TF-Glucerna 1.2 Dieudonne @ 45 ml/hr. Flush: 70 ml water Q 4 hr, or as per MD. Kcal 1,269 Protein (gm) 65 Carbohydrates (gm) 124 Fat (gm) 65 Fluid (mL) 869 Fiber (gm) 17 % RDI: 94% Kcal; 70% AA. Goal #1 Provide at least 75% of energy /protein needs through Enteral Feeding during LOS. Goal #2 Maintain body weight within +/ -3% of admission body weight during LOS. Follow-Up By: 08/30/21 Additional Comments Continue monitoring, Ventilation status, TF tolerance and BM.
--- NOTE | 2021-08-26 16:47 | Anesthesia Consultation ---
Anesthesia Consult and Med Hx Date of service: 08/26/21 - Airway Intubation Access Assessment: Difficult (oETT in situ; Previously intubated x2 by anesthesia providers 2/2 airway edema w/ glidescope. Airway notes reviewed.) - Pre-Operative Health Status ASA Pre-Surgery Classification: ASA4 Proposed Anesthetic Plan: General - Pulmonary Hx Respiratory Symptoms: Yes (angioedema on admission with persistent upper airway edema) - Cardiovascular System Hx Hypertension: Yes - Central Nervous System Hx Psychiatric Problems: Yes - Endocrine Hx Renal Disease: No Hx Hypothyroidism: Yes - Other Systems Hx Obesity: Yes (BMI 33) - Additional Comments Anesthesia Medical History Comments: Presented with respiratory distress 2/2 angioedema and intubated on 08/19/21. Attempted extubation 08/25/21 AM but patient developed respiratory distress and stridor so was reintubated that afternoon. Briefly on pressors after reintubation 08/25/21 but now HD stable. FiO2 40%, Peep 6. Propofol and fentanyl gtt for sedation. Anesthesia consent obtained from son Leno Resendiz via telephone. Handoff received from COGENERATION OPERATOR and RT on arrival to OR.
[2021-08-26] MEDS ORDERED: GLYCOPYRROLATE 0.4 MG/2 ML INJ ONE (18:10)
[2021-08-26] MEDS ORDERED: ePHEDrine SULFATE 50 MG/1 ML INJ ONE (18:19)
[2021-08-26] MEDS ORDERED: LIDOCAINE (1%) 10 MG/1 ML VIAL 20 ML MDV INFILTRATI ONE (18:43)
--- NOTE | 2021-08-26 18:46 | Anesthesia Day of Surgery ---
Anesthesia Day of Surgery - Day of Surgery Patient Examined: Yes Patient H&P Reviewed: Yes Patient is NPO: Yes
--- NOTE | 2021-08-26 18:58 | Operative Report ---
Operative Report Operative Report: Date of Operation: 08/27/2019 Preoperative diagnosis: Angioedema, VDRF Operative diagnosis: Same as above Procedure performed: Fiber optic bronchoscopy Surgeon: Oscar Young DO Anesthesia: GETA Findings: Mildly inflamed airway Complications: None DisPosition: Stable to ICU HPI and indication: Patient is a 76-year-old female who was brought to the hospital with angioedema. She was intubated for airway protection. Attempt was made at extubation however the patient was reintubated due to inability to protect her airway. Trach and PEG was requested by the biofuels engineering manager team. Consent was obtained by Dr. De Guzman after discussion with the family. Procedure in detail: The patient was identified in her bed in the ICU. After anesthesia was induced, the fiberoptic bronchoscope was passed through the endotracheal tube adapter. The trachea appeared mildly inflamed. The endotracheal tube was pulled back to approximately 17 cm. At this point, Dr. Mays who performed the tracheostomy portion of the procedure (please see separate operative note) placed the tracheostomy tube under direct visualization by fi beroptic bronchoscopy. Once the tracheostomy tube was placed, the bronchoscope was withdrawn from the endotracheal tube and placed through the tracheostomy tube. The tracheostomy tube appeared to be in good position approximately 3 cm above the bereket. There was no bleeding in the trachea and mainstem bronchi appeared patent. The bronchoscope was then withdrawn. Tracheostomy was secured to the skin.
--- NOTE | 2021-08-26 19:01 | Operative Report ---
Operative Report Operative Report: Date of Operation: 08/27/2019 Preoperative diagnosis: Angioedema, VDRF Operative diagnosis: Same as above Procedure performed: Fiber optic bronchoscopy Surgeon: Oscar Young DO Co-surgeon: MD Tonie Anesthesia: GETA Findings: Adequate transillumination, outer PEG bumper at 4 cm at the skin Complications: None DisPosition: Stable to ICU HPI and indication: Patient is a 76-year-old female who was brought to the hospital with angioedema. She was intubated for airway protection. Attempt was made at extubation however the patient was reintubated due to inability to protect her airway. Trach and PEG was requested by the weapons system instrument mechanic team. Consent was obtained by Dr. De Guzman after discussion with the family. Procedure in detail: A mouthguard was placed through which a flexible endoscope was passed through the mouth and into the esophagus. The OG tube was visualized along the way. The endoscope was advanced through the esophagus and into the stomach. The stomach was unremarkable. The stomach was insufflated and transillumination performed. An area of transillumination was visualized in the left upper quadrant and marked. The skin was then prepped and draped in usual sterile fashion. Local anesthetic was infiltrated to the skin at the intended incision site. A small incision was made in the skin using an 11 blade. An introducer needle/breakaway sheath was inserted directly through this incision into the stomach under direct endoscopic visualization. The needle was removed. The wire was passed and grasped with a snare by the acute care assistant and the wire pulled along with the endoscope through the mouth. The PEG tube was assembled onto the wire and pulled back through the mouth and down into the stomach. The outer bumper was at 4 cm at the skin. The PEG tube was cut to size and assembled in the usual fashion. A drain sponge was applied between the skin and the PEG tube and the tube secured with tape. I then reinserted the endoscope into the mouth and down into the stomach. The PEG tube inner bumper was seen to lay flush against the gastric mucosa without tension. There is no bleeding. The pylorus was entered and the first portion of the duodenum was unremarkable. The scope was then withdrawn back into the stomach and retroflexed. The entirety of the stomach was unremarkable. The OG tube was withdrawn. The stomach was then desufflated and the endoscope withdrawn. The patient was taken back to the ICU in stable condition
--- NOTE | 2021-08-26 19:19 | Operative Report ---
Operative Report Operative Report: Date of surgery: 08/26/2021 Preoperative diagnosis: Vent dependence Postoperative diagnosis: Same as above Procedure: Percutaneous tracheostomy Surgeon: Anesthesia: Gera local Findings: Good placement of tracheostomy as visualized by fiberoptic bronchoscopy EBL: LESS than 5 cc Specimen: None Complications: None Disposition: Stable to ICU HPI and indication: Patient is a 76-year-old -Prydeinig lady with supraglottic swelling secondary to angioedema. Procedure in detail: The patient was identified in the ICU and brought down to the operating room and positioned in supine position in the hospital bed. Consent was verified on the chart timeout was performed. The neck was prepped and draped in usual sterile fashion. Anesthesia was administered. A shoulder roll was placed, with the patient's neck mildly hyperextended. Dr. Young performed fiberoptic bronchoscopy throughout the entire procedure. The fiberoptic bronchoscope was inserted through the endotracheal tube via the adapter and the trachea examined. The trachea was unremarkable, and the 7.5 ET tube was approximately 3 cm from bereket at 24 cm at the lip. 1% lidocaine was infiltrated into the skin and subcutaneous tissue approximately 2 fingerbreadths above the bereket. A 2 cm incision was made in a horizontal fashion using a 15 blade. Using a hemostat the soft tissues were bluntly dissected until the trachea was encountered. The ET tube was then pulled back slowly to 16 cm. Using the introducer needle, the trachea was entered under direct visualization. The wire was passed down the trachea towards the bereket. Introducer needle was then removed. The trachea was then serially dilated, after which a 8 [place] Shiley FEN tracheostomy tube was inserted. The balloon was visualized via fiberoptic bronchoscopy. The balloon was inflated, patient placed back on ventilator. There was end-tidal CO2 detected and tidal volumes assessed which were satisfactory. The bronchoscope was then placed through the tracheostomy and showed good positioning of the tracheostomy approximately 4 to 5 cm above the bereket and no bleeding. A drain sponge was placed between the skin and tracheostomy. The tracheostomy was secured to the patient's neck using a tracheostomy strap. A post op chest x-ray is pending. The patient tolerated the procedure well. All sharps were disposed of appropriately. The patient was taken back to the ICU in stable condition.
[2021-08-26] MEDS ORDERED: SODIUM CHLORIDE 0.9% 1000 ML 1,000 ML ONE (19:21)
[2021-08-26] MEDS: SENNOSIDES ORAL LIQD 8.8 MG/5 ML ORAL LIQD FEEDTUBE SCH (21:54)
[2021-08-27] MEDS: SUCRALFATE 1 GM TAB FEEDTUBE SCH ×4 (02:50→17:33)
[2021-08-27] MEDS: INSULIN REGULAR, HUMAN 100 UNITS/1 ML SUB-Q SCH ×4 (02:50→17:33)
[2021-08-27 04:12] LABS: ABG Base Excess 4.3 mmol/L (-2.0-3.0); ABG HCO3 27.2 mmol/L (20.0-26.0); ABG Methemoglobin 0.5 % (0.0-1.5); ABG Oxygen Saturation 98.4 % (95.0-99.0); ABG PCO2 34.4 mm Hg; ABG PH 7.516 pH Units (7.350-7.450)
[2021-08-27] MEDS: LEVOTHYROXINE 75 MCG TAB FEEDTUBE SCH (05:03)
[2021-08-27 05:10] LABS: Hematocrit 33.1 % (30.3-42.9); Hemoglobin 10.9 gm/dl (10.1-14.3); Mean Corpuscular HGB Conc 33 % (30-34); Mean Corpuscular Volume 98 fl (79-97); Platelet Count 248 K/mm3 (140-440); Red Blood Count 3.39 M/mm3 (3.65-5.03); Red Cell Distribution Width 15.8 % (13.2-15.2)
[2021-08-27 05:14] LABS: BUN/Creatinine Ratio 39; Blood Urea Nitrogen 27 mg/dL (7-17); Calcium 9.2 mg/dL (8.4-10.2); Hemolysis Index 11
[2021-08-27] MEDS: fentaNYL DRIP Premix 2,000 MCG/100 ML BAG IV SCH ×2 (07:20→16:48)
[2021-08-27] MEDS ORDERED: POTASSIUM PHOSPHATE 15 MMOL in SODIUM CHLORIDE 0.9% 250ML 250 ML IV SCH (09:00)
[2021-08-27] MEDS: FOLIC ACID 1 MG TAB FEEDTUBE SCH (09:23)
[2021-08-27] MEDS: FAMOTIDINE 20 MG/2 ML INJ IV SCH (09:23)
[2021-08-27] MEDS: MULTIVITAMIN / MINERAL ORAL LIQUID 15 ML FEEDTUBE SCH (09:23)
[2021-08-27] MEDS: SERTRALINE 25 MG TAB FEEDTUBE SCH (09:23)
[2021-08-27] MEDS: THIAMINE 100 MG TAB FEEDTUBE SCH (09:23)
[2021-08-27] MEDS: busPIRone 10 MG TAB FEEDTUBE SCH ×2 (09:23→22:02)
[2021-08-27] MEDS: HEPARIN 5,000 UNIT/1 ML VIAL SUB-Q SCH ×2 (09:23→22:02)
--- NOTE | 2021-08-27 09:52 | Progress Note ---
Assessment and Plan 76 y/o female with acute respiratory failure secondary to angioedema 08/27/21: Start using peg. Continue PRN fent pushes and will add PRN tramadol as well. Wean sedation off. Can start PSV trials as early as tomorrow. 1. Agree with IV steroids 2. Suggest adding scheduled benadryl and pepcid 3. If swelling does not improve in the next 24-48 hours, suggest a trial of FFP 4. Wean FiO2 for sats > 88% CCT 31 minutes Subjective Date of service: 08/27/21 Interval history: No acute events. Had trach and peg placed yesterday with immediate complication. Objective Vital Signs - 12hr 08/26/21 08/26/21 08/26/21 21:16 21:30 21:46 Temperature Pulse Rate 53 L 53 L 53 L Pulse Rate [ From Monitor] Respiratory 20 20 20 Rate Blood Pressure 96/57 96/57 96/57 O2 Sat by Pulse 98 99 99 Oximetry O2 Sat by Pulse Oximetry [ Assessment] 08/26/21 08/26/21 08/26/21 22:00 22:16 22:30 Temperature Pulse Rate 53 L 55 L 54 L Pulse Rate [ From Monitor] Respiratory 20 20 20 Rate Blood Pressure 100/58 100/58 100/58 O2 Sat by Pulse 100 100 99 Oximetry O2 Sat by Pulse 98 Oximetry [ Assessment] 08/26/21 08/26/21 08/26/21 22:46 23:00 23:10 Temperature Pulse Rate 55 L 55 L 55 L Pulse Rate [ From Monitor] Respiratory 20 20 20 Rate Blood Pressure 100/58 92/57 92/57 O2 Sat by Pulse 100 100 99 Oximetry O2 Sat by Pulse Oximetry [ Assessment] 08/26/21 08/27/21 08/27/21 23:43 00:00 01:00 Temperature 98.5 F Pulse Rate 73 61 53 L Pulse Rate [ 53 L From Monitor] Respiratory 20 20 Rate Blood Pressure 92/57 92/50 92/50 O2 Sat by Pulse 100 97 97 Oximetry O2 Sat by Pulse Oximetry [ Assessment] 08/27/21 08/27/21 08/27/21 02:00 03:00 03:57 Temperature Pulse Rate 63 53 L 61 Pulse Rate [ From Monitor] Respiratory 22 20 Rate Blood Pressure 93/50 117/66 112/64 O2 Sat by Pulse 100 97 100 Oximetry O2 Sat by Pulse Oximetry [ Assessment] 08/27/21 08/27/21 08/27/21 04:00 05:00 06:00 Temperature 98.6 F Pulse Rate 63 73 66 Pulse Rate [ 53 L From Monitor] Respiratory 14 20 20 Rate Blood Pressure 112/64 112/64 109/60 O2 Sat by Pulse 100 98 98 Oximetry O2 Sat by Pulse Oximetry [ Assessment] 08/27/21 08/27/21 08/27/21 07:00 07:49 08:00 Temperature 99.2 F Pulse Rate 66 65 66 Pulse Rate [ 64 From Monitor] Respiratory 20 20 Rate Blood Pressure 109/60 105/63 107/62 O2 Sat by Pulse 99 97 100 Oximetry O2 Sat by Pulse Oximetry [ Assessment] Constitutional: no acute distress, other (Sedated) ENT: other (orally intubated, macroglossia) Neck: supple, no lymphadenopathy Effort: other (Supported on ventilator) Ascultation: Bilateral: clear Percussion: Bilateral: not dull Cardiovascular: regular rate and rhythm Gastrointestinal: normoactive bowel sounds Extremities: no cyanosis, no edema, pink and warm Neurologic: other (Sedated) Psychiatric: other (Sedated) CBC and BMP: 08/27/21 04:25 08/27/21 04:25 ABG, PT/INR, D-dimer: ABG ABG pH 7.516 pH Units (7.350-7.450) H 08/27/21 03:56 POC ABG pCO2 30.1 mmHg (32.0-48.0) L 08/22/21 10:16 ABG pCO2 34.4 mm Hg 08/27/21 03:56 POC ABG pO2 109.5 mmHg (83-108) H 08/22/21 10:16 ABG pO2 117.0 mm Hg (80.0-90.0) H 08/27/21 03:56 POC ABG HCO3 23.5 08/22/21 10:16 ABG O2 Saturation 98.4 % (95.0-99.0) 08/27/21 03:56 PT/INR, D-dimer PT 12.8 Sec. (12.2-14.9) 08/19/21 02:24 INR 0.87 (0.87-1.13) 08/19/21 02:24 Abnormal lab findings: Abnormal Labs 08/19/21 08/19/21 08/19/21 02:24 02:24 02:24 WBC 13.9 H RBC MCV 98 H MCH 33 H RDW 15.7 H Seg Neuts % (Manual) Lymphocytes % (Manual) 52.0 H Lymphocytes # (Manual) 7.2 H APTT 20.0 L ABG pH POC ABG pCO2 POC ABG pO2 ABG pO2 ABG HCO3 ABG O2 Saturation ABG Base Excess ABG Hemoglobin Oxyhemoglobin Potassium 3.3 L Chloride Carbon Dioxide 20 L BUN Glucose 143 H POC Glucose Calcium Phosphorus Magnesium Total Protein 8.3 H Triglycerides 08/19/21 08/19/21 08/19/21 06:15 10:20 11:10 WBC RBC MCV MCH RDW Seg Neuts % (Manual) Lymphocytes % (Manual) Lymphocytes # (Manual) APTT ABG pH 7.465 H 7.503 H POC ABG pCO2 POC ABG pO2 ABG pO2 177.7 H 90.5 H ABG HCO3 ABG O2 Saturation 99.2 H ABG Base Excess ABG Hemoglobin Oxyhemoglobin Potassium Chloride Carbon Dioxide BUN Glucose POC Glucose 171 H Calcium Phosphorus Magnesium Total Protein Triglycerides 08/19/21 08/20/21 08/20/21 16:33 00:03 04:25 WBC RBC MCV 98 H MCH 33 H RDW 15.9 H Seg Neuts % (Manual) 83.0 H Lymphocytes % (Manual) Lymphocytes # (Manual) APTT ABG pH POC ABG pCO2 POC ABG pO2 ABG pO2 ABG HCO3 ABG O2 Saturation ABG Base Excess ABG Hemoglobin Oxyhemoglobin Potassium Chloride Carbon Dioxide BUN Glucose POC Glucose 179 H 133 H Calcium Phosphorus Magnesium Total Protein Triglycerides 08/20/21 08/20/21 08/20/21 04:25 04:30 05:39 WBC RBC MCV MCH RDW Seg Neuts % (Manual) Lymphocytes % (Manual) Lymphocytes # (Manual) APTT ABG pH POC ABG pCO2 POC ABG pO2 ABG pO2 95.5 H ABG HCO3 ABG O2 Saturation ABG Base Excess -2.2 L ABG Hemoglobin Oxyhemoglobin Potassium Chloride Carbon Dioxide 21 L BUN Glucose 143 H POC Glucose 168 H Calcium 8.2 L Phosphorus Magnesium Total Protein Triglycerides 08/20/21 08/20/21 08/21/21 12:04 16:38 00:12 WBC RBC MCV MCH RDW Seg Neuts % (Manual) Lymphocytes % (Manual) Lymphocytes # (Manual) APTT ABG pH POC ABG pCO2 POC ABG pO2 ABG pO2 ABG HCO3 ABG O2 Saturation ABG Base Excess ABG Hemoglobin Oxyhemoglobin Potassium Chloride Carbon Dioxide BUN Glucose POC Glucose 151 H 135 H 123 H Calcium Phosphorus Magnesium Total Protein Triglycerides 08/21/21 08/21/21 08/21/21 04:58 04:58 04:59 WBC RBC 3.64 L MCV 100 H MCH RDW 16.4 H Seg Neuts % (Manual) Lymphocytes % (Manual) Lymphocytes # (Manual) APTT ABG pH POC ABG pCO2 POC ABG pO2 ABG pO2 ABG HCO3 ABG O2 Saturation ABG Base Excess -2.6 L ABG Hemoglobin 11.6 L Oxyhemoglobin Potassium 3.5 L Chloride 109.5 H Carbon Dioxide 19 L BUN Glucose 159 H POC Glucose Calcium 8.3 L Phosphorus Magnesium Total Protein Triglycerides 08/21/21 08/21/21 08/21/21 05:22 11:21 16:29 WBC RBC MCV MCH RDW Seg Neuts % (Manual) Lymphocytes % (Manual) Lymphocytes # (Manual) APTT ABG pH POC ABG pCO2 POC ABG pO2 ABG pO2 ABG HCO3 ABG O2 Saturation ABG Base Excess ABG Hemoglobin Oxyhemoglobin Potassium Chloride Carbon Dioxide BUN Glucose POC Glucose 143 H 133 H 122 H Calcium Phosphorus Magnesium Total Protein Triglycerides 08/22/21 08/22/21 08/22/21 00:03 03:54 03:54 WBC RBC 3.53 L MCV 100 H MCH 33 H RDW 16.7 H Seg Neuts % (Manual) Lymphocytes % (Manual) Lymphocytes # (Manual) APTT ABG pH POC ABG pCO2 POC ABG pO2 ABG pO2 ABG HCO3 ABG O2 Saturation ABG Base Excess ABG Hemoglobin Oxyhemoglobin Potassium Chloride 107.5 H Carbon Dioxide BUN Glucose 123 H POC Glucose 132 H Calcium Phosphorus Magnesium Total Protein Triglycerides 08/22/21 08/22/21 08/22/21 04:40 06:08 10:16 WBC RBC MCV MCH RDW Seg Neuts % (Manual) Lymphocytes % (Manual) Lymphocytes # (Manual) APTT ABG pH 7.454 H 7.511 H POC ABG pCO2 30.1 L POC ABG pO2 109.5 H ABG pO2 109.8 H ABG HCO3 ABG O2 Saturation ABG Base Excess ABG Hemoglobin Oxyhemoglobin Potassium Chloride Carbon Dioxide BUN Glucose POC Glucose 137 H Calcium Phosphorus Magnesium Total Protein Triglycerides 08/22/21 08/22/21 08/22/21 10:27 10:27 11:13 WBC RBC MCV 99 H MCH RDW 16.6 H Seg Neuts % (Manual) Lymphocytes % (Manual) Lymphocytes # (Manual) APTT ABG pH POC ABG pCO2 POC ABG pO2 ABG pO2 ABG HCO3 ABG O2 Saturation ABG Base Excess ABG Hemoglobin Oxyhemoglobin Potassium Chloride Carbon Dioxide BUN Glucose 129 H POC Glucose 125 H Calcium Phosphorus Magnesium Total Protein Triglycerides 08/22/21 08/23/21 08/23/21 23:39 04:11 04:11 WBC RBC MCV 98 H MCH 33 H RDW 16.1 H Seg Neuts % (Manual) Lymphocytes % (Manual) Lymphocytes # (Manual) APTT ABG pH POC ABG pCO2 POC ABG pO2 ABG pO2 ABG HCO3 ABG O2 Saturation ABG Base Excess ABG Hemoglobin Oxyhemoglobin Potassium Chloride Carbon Dioxide BUN Glucose 148 H POC Glucose 117 H Calcium Phosphorus Magnesium Total Protein Triglycerides 08/23/21 08/23/21 08/23/21 05:32 11:02 18:04 WBC RBC MCV MCH RDW Seg Neuts % (Manual) Lymphocytes % (Manual) Lymphocytes # (Manual) APTT ABG pH POC ABG pCO2 POC ABG pO2 ABG pO2 ABG HCO3 ABG O2 Saturation ABG Base Excess ABG Hemoglobin Oxyhemoglobin Potassium Chloride Carbon Dioxide BUN Glucose POC Glucose 173 H 146 H 129 H Calcium Phosphorus Magnesium Total Protein Triglycerides 08/24/21 08/24/21 08/24/21 00:27 05:20 06:00 WBC RBC MCV MCH RDW Seg Neuts % (Manual) Lymphocytes % (Manual) Lymphocytes # (Manual) APTT ABG pH 7.481 H POC ABG pCO2 POC ABG pO2 ABG pO2 95.8 H ABG HCO3 29.8 H ABG O2 Saturation ABG Base Excess 5.8 H ABG Hemoglobin Oxyhemoglobin Potassium Chloride Carbon Dioxide BUN Glucose POC Glucose 146 H 159 H Calcium Phosphorus Magnesium Total Protein Triglycerides 08/24/21 08/25/21 08/25/21 11:37 05:13 11:38 WBC RBC MCV MCH RDW Seg Neuts % (Manual) Lymphocytes % (Manual) Lymphocytes # (Manual) APTT ABG pH POC ABG pCO2 POC ABG pO2 ABG pO2 ABG HCO3 ABG O2 Saturation ABG Base Excess ABG Hemoglobin Oxyhemoglobin Potassium Chloride Carbon Dioxide BUN Glucose POC Glucose 154 H 121 H 135 H Calcium Phosphorus Magnesium Total Protein Triglycerides 08/25/21 08/25/21 08/26/21 16:00 17:12 00:04 WBC RBC MCV MCH RDW Seg Neuts % (Manual) Lymphocytes % (Manual) Lymphocytes # (Manual) APTT ABG pH POC ABG pCO2 POC ABG pO2 ABG pO2 78.3 L ABG HCO3 32.7 H ABG O2 Saturation ABG Base Excess 6.3 H ABG Hemoglobin 11.0 L Oxyhemoglobin 93.9 L Potassium Chloride Carbon Dioxide BUN Glucose POC Glucose 179 H 140 H Calcium Phosphorus Magnesium Total Protein Triglycerides 08/26/21 08/26/21 08/26/21 04:22 04:59 04:59 WBC 12.9 H RBC 3.54 L MCV MCH RDW 15.6 H Seg Neuts % (Manual) Lymphocytes % (Manual) Lymphocytes # (Manual) APTT ABG pH 7.533 H POC ABG pCO2 POC ABG pO2 ABG pO2 76.9 L ABG HCO3 29.2 H ABG O2 Saturation ABG Base Excess 6.4 H ABG Hemoglobin 11.6 L Oxyhemoglobin Potassium 3.5 L Chloride Carbon Dioxide BUN 28 H Glucose 139 H POC Glucose Calcium Phosphorus Magnesium Total Protein Triglycerides 08/26/21 08/26/21 08/26/21 05:34 11:21 16:52 WBC RBC MCV MCH RDW Seg Neuts % (Manual) Lymphocytes % (Manual) Lymphocytes # (Manual) APTT ABG pH POC ABG pCO2 POC ABG pO2 ABG pO2 ABG HCO3 ABG O2 Saturation ABG Base Excess ABG Hemoglobin Oxyhemoglobin Potassium Chloride Carbon Dioxide BUN Glucose POC Glucose 152 H 145 H 151 H Calcium Phosphorus Magnesium Total Protein Triglycerides 08/27/21 08/27/21 08/27/21 03:56 04:25 04:25 WBC 12.4 H RBC 3.39 L MCV 98 H MCH RDW 15.8 H Seg Neuts % (Manual) Lymphocytes % (Manual) Lymphocytes # (Manual) APTT ABG pH 7.516 H POC ABG pCO2 POC ABG pO2 ABG pO2 117.0 H ABG HCO3 27.2 H ABG O2 Saturation ABG Base Excess 4.3 H ABG Hemoglobin 11.1 L Oxyhemoglobin Potassium Chloride Carbon Dioxide BUN 27 H Glucose POC Glucose Calcium Phosphorus 2.10 L Magnesium 2.50 H Total Protein Triglycerides 08/27/21 04:25 WBC RBC MCV MCH RDW Seg Neuts % (Manual) Lymphocytes % (Manual) Lymphocytes # (Manual) APTT ABG pH POC ABG pCO2 POC ABG pO2 ABG pO2 ABG HCO3 ABG O2 Saturation ABG Base Excess ABG Hemoglobin Oxyhemoglobin Potassium Chloride Carbon Dioxide BUN Glucose POC Glucose Calcium Phosphorus Magnesium Total Protein Triglycerides 200 H
[2021-08-27] MEDS ORDERED: traMADol 50 MG TAB FEEDTUBE PRN (09:53)
--- NOTE | 2021-08-27 10:54 | Progress Note ---
<DELICIA LOYA - Last Filed: 08/27/21 16:13> Assessment and Plan Assessment and plan: This is a 76-year-old female with hypertension, psychiatric illness, and hypothyroidism admitted with angioedema and intubated for airway protection Hospital Course to Date: 08/19: Patient started on tube feedings, potassium repleted, started on Benadryl and propofol for sedation. SSI started. Air leak present today however due to swelling of the tongue we will hold off extubation. CCM plans to try FFP in the a.m. if swelling not better. 08/20: Angioedema slightly better so we will hold off FFP today. Updated son at bedside but he did not know what medication she was taking and states that she has not had angioedema in the past. Patient still remains on Versed and propofol. Was given 500 mL bolus overnight for hypotension and will repeat for hypotension. 08/21: Leak test today at bedside with RT shows no leak and will give FFP today. Tongue looks a bit smaller today but given no leak, CCM will not extubate today. Sedated with propofol and versed. Son at bedside today. 08/22: RT performed leak test in the AM and stated there was a leak noted and placed the patient on CPAP. She was sedated on versed at 4 and propofol at 30 but these are off for CPAP. Will removed lewis. Received FFP yesterday. Angioedema is improved. Leak test performed again with Dr. Bailey and no leak audible. Switched back to AC and sedation restarted. 08/23: Remains on the vent and sedated. Cuff leak assessed again today by CCM, still no significant air leak noted. Per CCM keep patient intubated and sedated and continue IV steroids and histamine therapy for now. Fentanyl gtt added, plan to wean off versed for RASS goal of 0 to -1. 08/24: Arousable and appropriate on the vent and on low dose sedation. No cuff leak again today per RT. D/W CCM plan for CT neck w/o contrast for further eval. If CT neck normal, PSV trial and possible extubation tomorrow. 08/25: S/p extubation this am, audible stridor appreciated. S/p X2 doses of RaceEpi and IV solumedrol X1 dose. Patient currently stable on 4L NC, SPO2 at 9 4%. Patient is low threshold for re-intubation, case discussed with anesthesia in case of any decompensation. D/w CCM patient will need a trach if she is reintubated. Plan of care was thoroughly discussed with patient's son at the bedside by the party plan salesperson. All question and concerns were addressed at this time. 08/26: Reintubated yesterday due to stridor. General Surgery consulted, plan for possible trach and PEG today. Hypotension resolved this am most likely due to sedation for intubation, VSS today. Wean SPO2 as tolerated for SPO2 above 90%. Continue to monitor and replete electrolytes as needed. 08/27: s/p Trach and PEG overnight. Patient is stable on the vent this am, sedated on propofol and fentanyl. okay to use PEG-tube per general surgery, resume TF as ordered. PRN Analgesia added for pain control, wean off sedation as tolerated. Plan for possible PSV trial tomorrow. Assessment and Plan Neuro:h/o depression -Restart home thiamine, multivitamin, Zoloft, BuSpar and as needed Xanax -Continue sedation for RASS goal of 0 to -2 -Avoid delirium -Reorientation as needed -Maintain sleep-wake cycle -As needed analgesia Cardiac:Hypertension -BP stable -resume home antihypertensive regimen when available and if needed -Continue blood pressure monitor per protocol -Hydralazine as needed for SBP above 160 Respiratory: Acute hypoxic respiratory failure 2/2 angioedema -Intubated in the emergency department on 08/19 for airway protection -[facility] consulted, appreciate recommendations -08/25 extubation and reintubated due to stridor -08/26 s/p Trach and PEG-tube by general surgery -Vent setting:PRVC-35%,6,20,450 -This am ABG noted -CT neck noted- large thyroid goiter and macroglossia reported, see report for full detail -[facility] consulted, appreciate recommendations -VAP bundle addressed -Aspiration precaution HOB above 30 -Daily SBT and SAT trials as tolerated -PRN ABG and CXR per [facility] -Continue SPO2 monitoring for SPO2 goal above 92% GI:TF -08/26 s/p Trach and PEG -Continue enteral nutrition -Nutrition on consult Urinary Retention -Lewis reinserted due to urinary retention -Possible bladder training/reassement when more stable -Keep lewis for now Endo: Hyperglycemia h/o hypothyroidism -Continue Q6hrs accucheck with SSI -Avoid hypoglycemia -While critically ill target blood glucose of 140-180 -continue synthroid GI/DVT Prophylaxis -PPI- Pepcid -Heparin SubQ -SCDs to bilateral lower extremities while in bed The high probability of a clinically significant, sudden or life threatening deterioration of the [Neuro, Resp] system(s) required my full and direct attention, intervention and personal management. The aggregate critical care time was [60] minutes. This time is in addition to time spent performing reported procedures but includes the following: [x] Data Review and interpretation [x] Patient assessment and monitoring of vital signs [x] Documentation [x] Medication orders and management Disposition Plan: ICU Total Time Spent with Patient (Minutes): 60 History Interval history: Patient seen and examined at the bedside. Intubated and sedated, on propofol and fentanyl. s/p Tracheostomy and PEGtube placement overnight. VSS. CARMEN overnight Hospitalist Physical - Physical exam Narrative exam: General appearance: Present: no acute distress, well-nourished, obese, other (Trach and sedated) - EENT Eyes: Present: PERRL - Neck Neck: Present: normal ROM - Respiratory Respiratory effort: normal Respiratory: bilateral: diminished - Cardiovascular Rhythm: regular Heart Sounds: Present: S1 & S2 - Extremities Extremities: no ischemia, pulses intact, pulses symmetrical Extremity abnormal: edema - Peripheral Assessment Generalized Edema Type: Non-pitting Edema Degree: 1+ Capillary Refill: < 3 seconds Skin Temperature: Warm Peripheral Pulses: within normal limits - Abdominal General gastrointestinal: soft, non-distended, normal bowel sounds - Integumentary Integumentary: Present: warm, dry - Psychiatric Psychiatric: other (trach and sedated) - Neurologic Neurologic: moves all extremities, other (trach and sedated) - Allied Health Allied health notes reviewed: nursing, case management - Constitutional Vitals: Temp Pulse Resp BP Pulse Ox 99.2 F 64 20 107/62 100 08/27/21 08:00 08/27/21 08:00 08/27/21 08:00 08/27/21 08:00 08/27/21 08:00 Results - Labs CBC & Chem 7: 08/27/21 04:25 08/27/21 04:25 Labs: Laboratory Last Values WBC 12.4 K/mm3 (4.5-11.0) H 08/27/21 04:25 RBC 3.39 M/mm3 (3.65-5.03) L 08/27/21 04:25 Hgb 10.9 gm/dl (10.1-14.3) 08/27/21 04:25 Hct 33.1 % (30.3-42.9) 08/27/21 04:25 MCV 98 fl (79-97) H 08/27/21 04:25 MCH 32 pg (28-32) 08/27/21 04:25 MCHC 33 % (30-34) 08/27/21 04:25 RDW 15.8 % (13.2-15.2) H 08/27/21 04:25 Plt Count 248 K/mm3 (140-440) 08/27/21 04:25 Lymph # (Auto) Plate Take Out Worker 08/19/21 02:24 Add Manual Diff Complete 08/20/21 04:25 Total Counted 100 08/20/21 04:25 Seg Neuts % (Manual) 83.0 % (40.0-70.0) H 08/20/21 04:25 Band Neutrophils % 0 % 08/20/21 04:25 Lymphocytes % (Manual) 14.0 % (13.4-35.0) 08/20/21 04:25 Reactive Lymphs % (Man) 0 % 08/20/21 04:25 Monocytes % (Manual) 3.0 % (0.0-7.3) 08/20/21 04:25 Eosinophils % (Manual) 0 % (0.0-4.3) 08/20/21 04:25 Basophils % (Manual) 0 % (0.0-1.8) 08/20/21 04:25 Metamyelocytes % 0 % 08/20/21 04:25 Myelocytes % 0 % 08/20/21 04:25 Promyelocytes % 0 % 08/20/21 04:25 Blast Cells % 0 % 08/20/21 04:25 Nucleated RBC % Not Reportable 08/20/21 04:25 Seg Neutrophils # Man 7.5 K/mm3 (1.8-7.7) 08/20/21 04:25 Band Neutrophils # 0.0 K/mm3 08/20/21 04:25 Lymphocytes # (Manual) 1.3 K/mm3 (1.2-5.4) 08/20/21 04:25 Abs React Lymphs (Man) 0.0 K/mm3 08/20/21 04:25 Monocytes # (Manual) 0.3 K/mm3 (0.0-0.8) 08/20/21 04:25 Eosinophils # (Manual) 0.0 K/mm3 (0.0-0.4) 08/20/21 04:25 Basophils # (Manual) 0.0 K/mm3 (0.0-0.1) 08/20/21 04:25 Metamyelocytes # 0.0 K/mm3 08/20/21 04:25 Myelocytes # 0.0 K/mm3 08/20/21 04:25 Promyelocytes # 0.0 K/mm3 08/20/21 04:25 Blast Cells # 0.0 K/mm3 08/20/21 04:25 WBC Morphology Not Reportable 08/20/21 04:25 Hypersegmented Neuts Not Reportable 08/20/21 04:25 Hyposegmented Neuts Not Reportable 08/20/21 04:25 Hypogranular Neuts Not Reportable 08/20/21 04:25 Smudge Cells Not Reportable 08/20/21 04:25 Toxic Granulation Not Reportable 08/20/21 04:25 Toxic Vacuolation Not Reportable 08/20/21 04:25 Dohle Bodies Not Reportable 08/20/21 04:25 Pelger-Huet Anomaly Not Reportable 08/20/21 04:25 Erik Rods Not Reportable 08/20/21 04:25 Platelet Estimate Consistent w auto 08/20/21 04:25 Clumped Platelets Not Reportable 08/20/21 04:25 Plt Clumps, EDTA Not Reportable 08/20/21 04:25 Large Platelets Rare 08/20/21 04:25 Giant Platelets Not Reportable 08/20/21 04:25 Platelet Satelliting Not Reportable 08/20/21 04:25 Plt Morphology Comment Not Reportable 08/20/21 04:25 RBC Morphology Not Reportable 08/20/21 04:25 Dimorphic RBCs Not Reportable 08/20/21 04:25 Polychromasia Not Reportable 08/20/21 04:25 Hypochromasia Not Reportable 08/20/21 04:25 Poikilocytosis Rare 08/20/21 04:25 Anisocytosis Rare 08/20/21 04:25 Microcytosis Not Reportable 08/20/21 04:25 Macrocytosis Not Reportable 08/20/21 04:25 Spherocytes Not Reportable 08/20/21 04:25 Pappenheimer Bodies Not Reportable 08/20/21 04:25 Sickle Cells Not Reportable 08/20/21 04:25 Target Cells Not Reportable 08/20/21 04:25 Tear Drop Cells Not Reportable 08/20/21 04:25 Ovalocytes Rare 08/20/21 04:25 Helmet Cells Not Reportable 08/20/21 04:25 Rai-Cavalero Bodies Not Reportable 08/20/21 04:25 Wiseman Rings Not Reportable 08/20/21 04:25 Caprice Cells Not Reportable 08/20/21 04:25 Bite Cells Not Reportable 08/20/21 04:25 Crenated Cell Not Reportable 08/20/21 04:25 Elliptocytes Not Reportable 08/20/21 04:25 Acanthocytes (Spur) Not Reportable 08/20/21 04:25 Rouleaux Not Reportable 08/20/21 04:25 Hemoglobin C Crystals Not Reportable 08/20/21 04:25 Schistocytes Not Reportable 08/20/21 04:25 Malaria parasites Not Reportable 08/20/21 04:25 Marco Bodies Not Reportable 08/20/21 04:25 Hem Pathologist Commnt No 08/20/21 04:25 PT 12.8 Sec. (12.2-14.9) 08/19/21 02:24 INR 0.87 (0.87-1.13) 08/19/21 02:24 APTT 20.0 Sec. (24.2-36.6) L 08/19/21 02:24 ABG pH 7.516 pH Units (7.350-7.450) H 08/27/21 03:56 POC ABG pCO2 30.1 mmHg (32.0-48.0) L 08/22/21 10:16 ABG pCO2 34.4 mm Hg 08/27/21 03:56 POC ABG pO2 109.5 mmHg (83-108) H 08/22/21 10:16 ABG pO2 117.0 mm Hg (80.0-90.0) H 08/27/21 03:56 POC ABG HCO3 23.5 08/22/21 10:16 ABG HCO3 27.2 mmol/L (20.0-26.0) H 08/27/21 03:56 ABG O2 Saturation 98.4 % (95.0-99.0) 08/27/21 03:56 ABG O2 Content 15.3 (0.0-44) 08/27/21 03:56 POC ABG Base Excess 1.2 08/22/21 10:16 ABG Base Excess 4.3 mmol/L (-2.0-3.0) H 08/27/21 03:56 ABG Hemoglobin 11.1 gm/dl (12.0-16.0) L 08/27/21 03:56 ABG Oxyhemoglobin 96.8 (94-98) 08/22/21 10:16 ABG Carboxyhemoglobin 1.0 % (0.0-5.0) 08/27/21 03:56 ABG Methemoglobin 0.5 % (0.0-1.5) 08/27/21 03:56 ABG Sodium Not Reportable 08/22/21 10:16 ABG Potassium Not Reportable 08/22/21 10:16 ABG Chloride Not Reportable 08/22/21 10:16 ABG Glucose Not Reportable 08/22/21 10:16 Oxyhemoglobin 96.9 % (95.0-99.0) 08/27/21 03:56 Carboxyhemoglobin 1.1 (0.5-1.5) 08/22/21 10:16 FiO2 40 % 08/27/21 03:56 FiO2 % 30.0 08/22/21 10:16 Sodium 145 mmol/L (137-145) 08/27/21 04:25 Potassium 3.7 mmol/L (3.6-5.0) 08/27/21 04:25 Chloride 106.6 mmol/L (98-107) 08/27/21 04:25 Carbon Dioxide 27 mmol/L (22-30) 08/27/21 04:25 Anion Gap 15 mmol/L 08/27/21 04:25 BUN 27 mg/dL (7-17) H 08/27/21 04:25 Creatinine 0.7 mg/dL (0.6-1.2) 08/27/21 04:25 Estimated GFR > 60 ml/min 08/27/21 04:25 BUN/Creatinine Ratio 39 % 08/27/21 04:25 Glucose 93 mg/dL (65-100) 08/27/21 04:25 POC Glucose 88 mg/dL (70-105) 08/27/21 05:38 Calcium 9.2 mg/dL (8.4-10.2) 08/27/21 04:25 Phosphorus 2.10 mg/dL (2.5-4.5) L 08/27/21 04:25 Magnesium 2.50 mg/dL (1.7-2.3) H 08/27/21 04:25 Total Bilirubin 0.40 mg/dL (0.1-1.2) 08/20/21 04:25 AST 23 units/L (5-40) 08/20/21 04:25 ALT 13 units/L (7-56) 08/20/21 04:25 Alkaline Phosphatase 94 units/L (35-129) 08/20/21 04:25 Total Protein 7.3 g/dL (6.3-8.2) 08/20/21 04:25 Albumin 4.0 g/dL (3.9-5) 08/20/21 04:25 Albumin/Globulin Ratio 1.2 % 08/20/21 04:25 Triglycerides 200 mg/dL (2-149) H 08/27/21 04:25 Arterial Blood Glucose Not Reportable 08/22/21 10:16 Blood Type A POSITIVE 08/21/21 15:10 Lewis/IV: Voiding Method Indwelling Catheter Active Medications - Current Medications Current Medications: Generic Name Dose Route Start Last Admin Trade Name Freq PRN Reason Stop Dose Admin Acetaminophen 650 mg 08/19/21 06:00 Acetaminophen 325 Mg Tab FEEDTUBE Q4H PRN Pain MILD(1-3)/Fever >100.5/SAEED Albuterol 2.5 mg 08/19/21 04:50 Albuterol 2.5 Mg/3 Ml Nebu IH Q3HRT PRN Shortness Of Breath Alprazolam 0.25 mg 08/19/21 06:00 Alprazolam 0.25 Mg Tab FEEDTUBE BID PRN Anxiety Atorvastatin Calcium 10 mg 08/23/21 22:00 08/26/21 21:53 Atorvastatin 10 Mg Tab FEEDTUBE Not Given QHS WARD Buspirone HCl 10 mg 08/19/21 10:00 08/27/21 09:23 Buspirone 10 Mg Tab FEEDTUBE 10 mg BID WARD Administration Dextrose 50 ml 08/20/21 10:00 Dextrose 50% In Water (25gm) 50 Ml Syringe IV Q30MIN PRN Hypoglycemia Protocol Famotidine 20 mg 08/27/21 22:00 Famotidine 20 Mg Tab FEEDTUBE BID WARD Fentanyl 50 mcg 08/23/21 11:28 08/25/21 07:48 Fentanyl 100 Mcg/2 Ml Inj IV 50 mcg Q10MIN PRN Administration ANALGESIA Folic Acid 1 mg 08/19/21 10:00 08/27/21 09:23 Folic Acid 1 Mg Tab FEEDTUBE 1 mg QDAY WARD Administration Heparin Sodium (Porcine) 5,000 unit 08/19/21 10:00 08/27/21 09:23 Heparin 5,000 Unit/1 Ml Vial SUB-Q 5,000 unit Q12HR WARD Administration Hydralazine HCl 10 mg 08/19/21 05:03 08/24/21 18:09 Hydralazine 20 Mg/1 Ml Inj IV 10 mg Q6H PRN Administration SBP >/=160; DBP >/=100 Propofol 1,000 mg in 100 mls @ 2.722 mls/hr 08/19/21 12:00 08/27/21 09:22 Diprivan 10 Mg/Ml IV 10 mcg/kg/min TITR WARD 5.443 mls/hr Administration Protocol 5 MCG/KG/MIN Fentanyl Citrate 2,000 mcg in 100 mls @ 2.125 mls/hr 08/23/21 12:00 08/27/21 09:39 Fentanyl Drip Premix IV 2 mcg/kg/hr TITR WARD 4.25 mls/hr Titration Protocol 1 MCG/KG/HR NORepinephrine/NS 8 MG-250 ML 8 mg in 250 mls @ 3.75 mls/hr 08/25/21 15:00 08/25/21 14:30 Norepinephrine/Ns 8 Mg-250 Ml (Double Conc) IV 2 mcg/min TITRATE WARD 3.75 mls/hr Administration Protocol 2 MCG/MIN Potassium Phosphate 15 mmol/ 255 mls @ 125 mls/hr 08/27/21 09:00 08/27/21 09:22 Sodium Chloride IV 08/27/21 13:30 125 mls/hr ONCE@0900 WARD Administration Insulin Human Regular 0 units 08/20/21 12:00 08/27/21 07:49 Insulin Regular, Human 100 Units/1 Ml SUB-Q Not Given Q6H [facility] Protocol Levothyroxine Sodium 150 mcg 08/19/21 06:00 08/27/21 05:03 Levothyroxine 75 Mcg Tab FEEDTUBE Not Given DAILY@0600 WARD Ondansetron HCl 4 mg 08/19/21 04:50 Ondansetron 4 Mg/2 Ml Inj IV Q8H PRN Nausea And Vomiting Senna 8.8 mg 08/23/21 22:00 08/26/21 21:54 Sennosides Oral Liqd 8.8 Mg/5 Ml Oral Liqd FEEDTUBE Not Given QHS WARD Sertraline HCl 25 mg 08/19/21 10:00 08/27/21 09:23 Sertraline 25 Mg Tab FEEDTUBE 25 mg QDAY WARD Administration Sodium Chloride 10 ml 08/19/21 10:00 08/27/21 09:22 Sodium Chloride 0.9% 10 Ml Flush Syringe IV 10 ml BID WARD Administration Sodium Chloride 10 ml 08/19/21 04:50 Sodium Chloride 0.9% 10 Ml Flush Syringe IV PRN PRN LINE FLUSH Sucralfate 1 gm 08/23/21 18:00 08/27/21 07:49 Sucralfate 1 Gm Tab FEEDTUBE Not Given Q6HR WARD Thiamine HCl 100 mg 08/19/21 10:00 08/27/21 09:23 Thiamine 100 Mg Tab FEEDTUBE 100 mg QDAY WARD Administration Tramadol HCl 50 mg 08/27/21 09:53 Tramadol 50 Mg Tab FEEDTUBE Q6H PRN Pain, Moderate (4-6) Nutrition/Malnutrition Assess - Dietary Evaluation Nutrition/Malnutrition Findings: Nutrition Notes Start: 08/19/21 10:13 Freq: Status: Active Protocol: Document 08/25/21 17:57 ABRAHAM (Rec: 08/25/21 18:22 ABRAHAM [id number]) Nutrition Notes Initial or Follow up Brief Note Current Diagnosis Hypertension,Respiratory Failure Other Pertinent Diagnosis Angioedema, Hypothyroidism, Psychosis. Current Diet TF-Glucerna 1.2 Dieudonne @ 45 ml/hr (since D 08/23). Height 4 ft 11 in Weight 74 kg Theodosia Body Weight (kg) 43.18 BMI 32.9 Weight change and time frame No body weight change reported in 2 days. Weight Status Obese Subjective/Other Information RD consult for routine F/U on TF tolerance. TF continues as prescribed, well tolerated, according to RN notes. Pt extubated on 08/25 am, but on low threshold for reintubation; later reintubation was necessary but Pt refused initially, later Pt gave verbal consent and was reintubated. Propofol not given. Plans to place PEG tube on . Percent of energy/protein needs met: Prescribed TF-Glucerna 1.2 Dieudonne @ 45 ml/hr provides for energy/protein needs (1,269 Kcal/65 g) during LOS, 94% Kcal; 70% AA. #1 Nutrition Diagnosis Inadequate oral intake Diagnosis Progress(for reassessment Continues documentation) Is patient on ventilator? Yes Is Patient Ambulatory and/or Out of Bed No REE-([place]-St. Jeor-confined to bed) 1375.068 Kcal/Kg value to use for calculation 17 Approximate Energy Requirements Using 1258 kcal/Kg Calculation Used for Recommendations Kcal/kg Additional Notes Protein: 2 g/Kg IBW; 86 g/day. Fluids: 1 ml/Kcal, or as per MD. Nutrition Intervention Nutrition Support: Continue TF-Glucerna 1.2 Dieudonne @ 45 ml/hr. Flush: 70 ml water Q 4 hr, or as per MD. Kcal 1,269 Protein (gm) 65 Carbohydrates (gm) 124 Fat (gm) 65 Fluid (mL) 869 Fiber (gm) 17 % RDI: 94% Kcal; 70% AA. Goal #1 Provide at least 75% of energy /protein needs through Enteral Feeding during LOS. Goal #2 Maintain body weight within +/ -3% of admission body weight during LOS. Follow-Up By: 08/30/21 Additional Comments Continue monitoring, Ventilation status, TF tolerance and BM. <CATRINA MONDRAGON - Last Filed: 08/28/21 08:33> Assessment and Plan Assessment and plan: I saw and evaluated the patient. I agree with the findings and the plan of care as documented in the Nurse Practitioner's~note, with the following corrections and additions. Hospitalist Physical - Constitutional Vitals: Temp Pulse Resp BP Pulse Ox 99.0 F 79 20 111/57 100 08/28/21 04:00 08/28/21 07:00 08/28/21 07:00 08/28/21 07:00 08/28/21 07:00 Results - Labs CBC & Chem 7: 08/28/21 04:11 08/28/21 04:11 Labs: Laboratory Last Values WBC 17.2 K/mm3 (4.5-11.0) H 08/28/21 04:11 RBC 3.29 M/mm3 (3.65-5.03) L 08/28/21 04:11 Hgb 10.6 gm/dl (10.1-14.3) 08/28/21 04:11 Hct 32.6 % (30.3-42.9) 08/28/21 04:11 MCV 99 fl (79-97) H 08/28/21 04:11 MCH 32 pg (28-32) 08/28/21 04:11 MCHC 33 % (30-34) 08/28/21 04:11 RDW 16.2 % (13.2-15.2) H 08/28/21 04:11 Plt Count 227 K/mm3 (140-440) 08/28/21 04:11 Lymph # (Auto) Plate Take Out Worker 08/19/21 02:24 Add Manual Diff Complete 08/20/21 04:25 Total Counted 100 08/20/21 04:25 Seg Neuts % (Manual) 83.0 % (40.0-70.0) H 08/20/21 04:25 Band Neutrophils % 0 % 08/20/21 04:25 Lymphocytes % (Manual) 14.0 % (13.4-35.0) 08/20/21 04:25 Reactive Lymphs % (Man) 0 % 08/20/21 04:25 Monocytes % (Manual) 3.0 % (0.0-7.3) 08/20/21 04:25 Eosinophils % (Manual) 0 % (0.0-4.3) 08/20/21 04:25 Basophils % (Manual) 0 % (0.0-1.8) 08/20/21 04:25 Metamyelocytes % 0 % 08/20/21 04:25 Myelocytes % 0 % 08/20/21 04:25 Promyelocytes % 0 % 08/20/21 04:25 Blast Cells % 0 % 08/20/21 04:25 Nucleated RBC % Not Reportable 08/20/21 04:25 Seg Neutrophils # Man 7.5 K/mm3 (1.8-7.7) 08/20/21 04:25 Band Neutrophils # 0.0 K/mm3 08/20/21 04:25 Lymphocytes # (Manual) 1.3 K/mm3 (1.2-5.4) 08/20/21 04:25 Abs React Lymphs (Man) 0.0 K/mm3 08/20/21 04:25 Monocytes # (Manual) 0.3 K/mm3 (0.0-0.8) 08/20/21 04:25 Eosinophils # (Manual) 0.0 K/mm3 (0.0-0.4) 08/20/21 04:25 Basophils # (Manual) 0.0 K/mm3 (0.0-0.1) 08/20/21 04:25 Metamyelocytes # 0.0 K/mm3 08/20/21 04:25 Myelocytes # 0.0 K/mm3 08/20/21 04:25 Promyelocytes # 0.0 K/mm3 08/20/21 04:25 Blast Cells # 0.0 K/mm3 08/20/21 04:25 WBC Morphology Not Reportable 08/20/21 04:25 Hypersegmented Neuts Not Reportable 08/20/21 04:25 Hyposegmented Neuts Not Reportable 08/20/21 04:25 Hypogranular Neuts Not Reportable 08/20/21 04:25 Smudge Cells Not Reportable 08/20/21 04:25 Toxic Granulation Not Reportable 08/20/21 04:25 Toxic Vacuolation Not Reportable 08/20/21 04:25 Dohle Bodies Not Reportable 08/20/21 04:25 Pelger-Huet Anomaly Not Reportable 08/20/21 04:25 Erik Rods Not Reportable 08/20/21 04:25 Platelet Estimate Consistent w auto 08/20/21 04:25 Clumped Platelets Not Reportable 08/20/21 04:25 Plt Clumps, EDTA Not Reportable 08/20/21 04:25 Large Platelets Rare 08/20/21 04:25 Giant Platelets Not Reportable 08/20/21 04:25 Platelet Satelliting Not Reportable 08/20/21 04:25 Plt Morphology Comment Not Reportable 08/20/21 04:25 RBC Morphology Not Reportable 08/20/21 04:25 Dimorphic RBCs Not Reportable 08/20/21 04:25 Polychromasia Not Reportable 08/20/21 04:25 Hypochromasia Not Reportable 08/20/21 04:25 Poikilocytosis Rare 08/20/21 04:25 Anisocytosis Rare 08/20/21 04:25 Microcytosis Not Reportable 08/20/21 04:25 Macrocytosis Not Reportable 08/20/21 04:25 Spherocytes Not Reportable 08/20/21 04:25 Pappenheimer Bodies Not Reportable 08/20/21 04:25 Sickle Cells Not Reportable 08/20/21 04:25 Target Cells Not Reportable 08/20/21 04:25 Tear Drop Cells Not Reportable 08/20/21 04:25 Ovalocytes Rare 08/20/21 04:25 Helmet Cells Not Reportable 08/20/21 04:25 Rai-Cavalero Bodies Not Reportable 08/20/21 04:25 Wiseman Rings Not Reportable 08/20/21 04:25 Caprice Cells Not Reportable 08/20/21 04:25 Bite Cells Not Reportable 08/20/21 04:25 Crenated Cell Not Reportable 08/20/21 04:25 Elliptocytes Not Reportable 08/20/21 04:25 Acanthocytes (Spur) Not Reportable 08/20/21 04:25 Rouleaux Not Reportable 08/20/21 04:25 Hemoglobin C Crystals Not Reportable 08/20/21 04:25 Schistocytes Not Reportable 08/20/21 04:25 Malaria parasites Not Reportable 08/20/21 04:25 Marco Bodies Not Reportable 08/20/21 04:25 Hem Pathologist Commnt No 08/20/21 04:25 PT 12.8 Sec. (12.2-14.9) 08/19/21 02:24 INR 0.87 (0.87-1.13) 08/19/21 02:24 APTT 20.0 Sec. (24.2-36.6) L 08/19/21 02:24 ABG pH 7.516 pH Units (7.350-7.450) H 08/27/21 03:56 POC ABG pCO2 30.1 mmHg (32.0-48.0) L 08/22/21 10:16 ABG pCO2 34.4 mm Hg 08/27/21 03:56 POC ABG pO2 109.5 mmHg (83-108) H 08/22/21 10:16 ABG pO2 117.0 mm Hg (80.0-90.0) H 08/27/21 03:56 POC ABG HCO3 23.5 08/22/21 10:16 ABG HCO3 27.2 mmol/L (20.0-26.0) H 08/27/21 03:56 ABG O2 Saturation 98.4 % (95.0-99.0) 08/27/21 03:56 ABG O2 Content 15.3 (0.0-44) 08/27/21 03:56 POC ABG Base Excess 1.2 08/22/21 10:16 ABG Base Excess 4.3 mmol/L (-2.0-3.0) H 08/27/21 03:56 ABG Hemoglobin 11.1 gm/dl (12.0-16.0) L 08/27/21 03:56 ABG Oxyhemoglobin 96.8 (94-98) 08/22/21 10:16 ABG Carboxyhemoglobin 1.0 % (0.0-5.0) 08/27/21 03:56 ABG Methemoglobin 0.5 % (0.0-1.5) 08/27/21 03:56 ABG Sodium Not Reportable 08/22/21 10:16 ABG Potassium Not Reportable 08/22/21 10:16 ABG Chloride Not Reportable 08/22/21 10:16 ABG Glucose Not Reportable 08/22/21 10:16 Oxyhemoglobin 96.9 % (95.0-99.0) 08/27/21 03:56 Carboxyhemoglobin 1.1 (0.5-1.5) 08/22/21 10:16 FiO2 40 % 08/27/21 03:56 FiO2 % 30.0 08/22/21 10:16 Sodium 145 mmol/L (137-145) 08/28/21 04:11 Potassium 3.6 mmol/L (3.6-5.0) 08/28/21 04:11 Chloride 109.2 mmol/L (98-107) H 08/28/21 04:11 Carbon Dioxide 22 mmol/L (22-30) 08/28/21 04:11 Anion Gap 17 mmol/L 08/28/21 04:11 BUN 22 mg/dL (7-17) H 08/28/21 04:11 Creatinine 0.7 mg/dL (0.6-1.2) 08/28/21 04:11 Estimated GFR > 60 ml/min 08/28/21 04:11 BUN/Creatinine Ratio 31 % 08/28/21 04:11 Glucose 137 mg/dL (65-100) H 08/28/21 04:11 POC Glucose 122 mg/dL (70-105) H 08/27/21 23:37 Calcium 9.3 mg/dL (8.4-10.2) 08/28/21 04:11 Phosphorus 2.10 mg/dL (2.5-4.5) L 08/27/21 04:25 Magnesium 2.50 mg/dL (1.7-2.3) H 08/27/21 04:25 Total Bilirubin 0.40 mg/dL (0.1-1.2) 08/20/21 04:25 AST 23 units/L (5-40) 08/20/21 04:25 ALT 13 units/L (7-56) 08/20/21 04:25 Alkaline Phosphatase 94 units/L (35-129) 08/20/21 04:25 Total Protein 7.3 g/dL (6.3-8.2) 08/20/21 04:25 Albumin 4.0 g/dL (3.9-5) 08/20/21 04:25 Albumin/Globulin Ratio 1.2 % 08/20/21 04:25 Triglycerides 200 mg/dL (2-149) H 08/27/21 04:25 Arterial Blood Glucose Not Reportable 08/22/21 10:16 Blood Type A POSITIVE 08/21/21 15:10 Lewis/IV: Voiding Method Indwelling Catheter Active Medications - Current Medications Current Medications: Generic Name Dose Route Start Last Admin Trade Name Freq PRN Reason Stop Dose Admin Acetaminophen 650 mg 08/19/21 06:00 08/27/21 11:55 Acetaminophen 325 Mg Tab FEEDTUBE 650 mg Q4H PRN Administration Pain MILD(1-3)/Fever >100.5/SAEED Albuterol 2.5 mg 08/19/21 04:50 Albuterol 2.5 Mg/3 Ml Nebu IH Q3HRT PRN Shortness Of Breath Alprazolam 0.25 mg 08/19/21 06:00 Alprazolam 0.25 Mg Tab FEEDTUBE BID PRN Anxiety Atorvastatin Calcium 10 mg 08/23/21 22:00 08/27/21 22:02 Atorvastatin 10 Mg Tab FEEDTUBE 10 mg QHS WARD Administration Buspirone HCl 10 mg 08/19/21 10:00 08/27/21 22:02 Buspirone 10 Mg Tab FEEDTUBE 10 mg BID WARD Administration Dextrose 50 ml 08/20/21 10:00 Dextrose 50% In Water (25gm) 50 Ml Syringe IV Q30MIN PRN Hypoglycemia Protocol Docusate Sodium 100 mg 08/28/21 10:00 Docusate Sodium 100 Mg/10 Ml Oral Liqd PO BID WARD Famotidine 20 mg 08/27/21 22:00 08/27/21 22:03 Famotidine 20 Mg Tab FEEDTUBE 20 mg BID WARD Administration Fentanyl 50 mcg 08/23/21 11:28 08/27/21 13:33 Fentanyl 100 Mcg/2 Ml Inj IV 50 mcg Q10MIN PRN Administration ANALGESIA Folic Acid 1 mg 08/19/21 10:00 08/27/21 09:23 Folic Acid 1 Mg Tab FEEDTUBE 1 mg QDAY WARD Administration Heparin Sodium (Porcine) 5,000 unit 08/19/21 10:00 08/27/21 22:02 Heparin 5,000 Unit/1 Ml Vial SUB-Q 5,000 unit Q12HR WARD Administration Hydralazine HCl 10 mg 08/19/21 05:03 08/24/21 18:09 Hydralazine 20 Mg/1 Ml Inj IV 10 mg Q6H PRN Administration SBP >/=160; DBP >/=100 Propofol 1,000 mg in 100 mls @ 2.722 mls/hr 08/19/21 12:00 08/28/21 03:02 Diprivan 10 Mg/Ml IV 2 mcg/kg/min TITR WARD 1.089 mls/hr Titration Protocol 5 MCG/KG/MIN Fentanyl Citrate 2,000 mcg in 100 mls @ 2.125 mls/hr 08/23/21 12:00 08/28/21 06:00 Fentanyl Drip Premix IV 5 mcg/kg/hr TITR WARD 10.625 mls/hr Titration Protocol 1 MCG/KG/HR NORepinephrine/NS 8 MG-250 ML 8 mg in 250 mls @ 3.75 mls/hr 08/25/21 15:00 08/25/21 14:30 Norepinephrine/Ns 8 Mg-250 Ml (Double Conc) IV 2 mcg/min TITRATE WARD 3.75 mls/hr Administration Protocol 2 MCG/MIN Insulin Human Regular 0 units 08/20/21 12:00 08/28/21 06:21 Insulin Regular, Human 100 Units/1 Ml SUB-Q Not Given Q6H [facility] Protocol Levothyroxine Sodium 150 mcg 08/19/21 06:00 08/28/21 06:13 Levothyroxine 75 Mcg Tab FEEDTUBE 150 mcg DAILY@0600 [facility] Administration Nystatin 100,000 unit 08/28/21 08:00 Nystatin 500,000 Unit/5 Ml Oral Liqd PO TID [facility] Ondansetron HCl 4 mg 08/19/21 04:50 Ondansetron 4 Mg/2 Ml Inj IV Q8H PRN Nausea And Vomiting Senna 8.8 mg 08/28/21 10:00 Sennosides Oral Liqd 8.8 Mg/5 Ml Oral Liqd FEEDTUBE BID [facility] Sertraline HCl 25 mg 08/19/21 10:00 08/27/21 09:23 Sertraline 25 Mg Tab FEEDTUBE 25 mg QDAY [facility] Administration Sodium Chloride 10 ml 08/19/21 10:00 08/27/21 22:25 Sodium Chloride 0.9% 10 Ml Flush Syringe IV 10 ml BID [facility] Administration Sodium Chloride 10 ml 08/19/21 04:50 Sodium Chloride 0.9% 10 Ml Flush Syringe IV PRN PRN LINE FLUSH Sucralfate 1 gm 08/23/21 18:00 08/28/21 06:12 Sucralfate 1 Gm Tab FEEDTUBE 1 gm Q6HR [facility] Administration Thiamine HCl 100 mg 08/19/21 10:00 08/27/21 09:23 Thiamine 100 Mg Tab FEEDTUBE 100 mg QDAY [facility] Administration Tramadol HCl 50 mg 08/28/21 09:00 Tramadol 50 Mg Tab FEEDTUBE Q6H [facility] Nutrition/Malnutrition Assess - Dietary Evaluation Nutrition/Malnutrition Findings: Nutrition Notes Start: 08/19/21 10:13 Freq: Status: Active Protocol: Document 08/25/21 17:57 ABRAHAM (Rec: 08/25/21 18:22 ABRAHAM [id number]) Nutrition Notes Initial or Follow up Brief Note Current Diagnosis Hypertension,Respiratory Failure Other Pertinent Diagnosis Angioedema, Hypothyroidism, Psychosis. Current Diet TF-Glucerna 1.2 Dieudonne @ 45 ml/hr (since D 08/23). Height 4 ft 11 in Weight 74 kg Theodosia Body Weight (kg) 43.18 BMI 32.9 Weight change and time frame No body weight change reported in 2 days. Weight Status Obese Subjective/Other Information RD consult for routine F/U on TF tolerance. TF continues as prescribed, well tolerated, according to RN notes. Pt extubated on 08/25 am, but on low threshold for reintubation; later reintubation was necessary but Pt refused initially, later Pt gave verbal consent and was reintubated. Propofol not given. Plans to place PEG tube on . Percent of energy/protein needs met: Prescribed TF-Glucerna 1.2 Dieudonne @ 45 ml/hr provides for energy/protein needs (1,269 Kcal/65 g) during LOS, 94% Kcal; 70% AA. #1 Nutrition Diagnosis Inadequate oral intake Diagnosis Progress(for reassessment Continues documentation) Is patient on ventilator? Yes Is Patient Ambulatory and/or Out of Bed No REE-([facility]-confined to bed) 1375.068 Kcal/Kg value to use for calculation 17 Approximate Energy Requirements Using 1258 kcal/Kg Calculation Used for Recommendations Kcal/kg Additional Notes Protein: 2 g/Kg IBW; 86 g/day. Fluids: 1 ml/Kcal, or as per MD. Nutrition Intervention Nutrition Support: Continue TF-Glucerna 1.2 Dieudonne @ 45 ml/hr. Flush: 70 ml water Q 4 hr, or as per MD. Kcal 1,269 Protein (gm) 65 Carbohydrates (gm) 124 Fat (gm) 65 Fluid (mL) 869 Fiber (gm) 17 % RDI: 94% Kcal; 70% AA. Goal #1 Provide at least 75% of energy /protein needs through Enteral Feeding during LOS. Goal #2 Maintain body weight within +/ -3% of admission body weight during LOS. Follow-Up By: 08/30/21 Additional Comments Continue monitoring, Ventilation status, TF tolerance and BM.
[2021-08-27] MEDS: ACETAMINOPHEN 325 MG TAB FEEDTUBE PRN (11:55)
[2021-08-27] MEDS: fentaNYL 100 MCG/2 ML INJ IV PRN (13:33)
[2021-08-27] MEDS: SENNOSIDES ORAL LIQD 8.8 MG/5 ML ORAL LIQD FEEDTUBE SCH (22:02)
[2021-08-27] MEDS: FAMOTIDINE 20 MG TAB FEEDTUBE SCH (22:03)
[2021-08-28] MEDS: fentaNYL DRIP Premix 2,000 MCG/100 ML BAG IV SCH (00:08)
[2021-08-28] MEDS: SUCRALFATE 1 GM TAB FEEDTUBE SCH ×4 (00:08→12:44)
[2021-08-28] MEDS: INSULIN REGULAR, HUMAN 100 UNITS/1 ML SUB-Q SCH ×3 (00:34→12:07)
[2021-08-28 05:11] LABS: Hematocrit 32.6 % (30.3-42.9); Hemoglobin 10.6 gm/dl (10.1-14.3); Mean Corpuscular HGB Conc 33 % (30-34); Mean Corpuscular Volume 99 fl (79-97); Platelet Count 227 K/mm3 (140-440); Red Blood Count 3.29 M/mm3 (3.65-5.03); Red Cell Distribution Width 16.2 % (13.2-15.2)
[2021-08-28 05:27] LABS: Blood Urea Nitrogen 22 mg/dL (7-17); Calcium 9.3 mg/dL (8.4-10.2); Hemolysis Index 26
[2021-08-28 05:31] LABS: BUN/Creatinine Ratio 31
[2021-08-28] MEDS: LEVOTHYROXINE 75 MCG TAB FEEDTUBE SCH (06:13)
--- NOTE | 2021-08-28 08:02 | Progress Note ---
Assessment and Plan Pt with angioedema. Status post percutaneous trach and PEG tube placement 2 days ago. Appears stable at this time. Will sign off for now. Subjective Date of service: 08/28/21 Narrative: Status post percutaneous trach and PEG tube placement 2 days ago. Appears stable at this time. Will sign off for now. Objective Vital Signs - 12hr 08/27/21 08/27/21 08/27/21 21:00 22:00 22:46 Temperature Pulse Rate 83 91 H 85 Respiratory 20 26 H 19 Rate Blood Pressure 109/58 119/71 119/71 O2 Sat by Pulse 99 99 100 Oximetry O2 Sat by Pulse Oximetry [ Assessment] 08/27/21 08/27/21 08/28/21 23:00 23:30 00:00 Temperature 98.5 F Pulse Rate 82 80 70 Respiratory 20 20 Rate Blood Pressure 109/68 109/68 96/51 O2 Sat by Pulse 99 98 98 Oximetry O2 Sat by Pulse Oximetry [ Assessment] 08/28/21 08/28/21 08/28/21 00:20 01:00 02:00 Temperature Pulse Rate 74 75 Respiratory 20 20 Rate Blood Pressure 97/48 98/69 O2 Sat by Pulse 99 99 Oximetry O2 Sat by Pulse 99 Oximetry [ Assessment] 08/28/21 08/28/21 08/28/21 03:00 03:53 04:00 Temperature 99.0 F Pulse Rate 74 76 78 Respiratory 20 21 Rate Blood Pressure 87/50 102/57 104/58 O2 Sat by Pulse 98 99 99 Oximetry O2 Sat by Pulse Oximetry [ Assessment] 08/28/21 08/28/21 08/28/21 05:00 06:00 07:00 Temperature Pulse Rate 79 81 79 Respiratory 22 24 20 Rate Blood Pressure 103/59 92/56 111/57 O2 Sat by Pulse 100 100 100 Oximetry O2 Sat by Pulse Oximetry [ Assessment] - Labs 08/28/21 04:11 08/28/21 04:11 Diabetes panel 08/28/21 Range/Units 04:11 Sodium 145 (137-145) mmol/L Potassium 3.6 (3.6-5.0) mmol/L Chloride 109.2 H (98-107) mmol/L Carbon Dioxide 22 (22-30) mmol/L BUN 22 H (7-17) mg/dL Creatinine 0.7 (0.6-1.2) mg/dL Glucose 137 H (65-100) mg/dL Calcium 9.3 (8.4-10.2) mg/dL Calcium panel 08/28/21 Range/Units 04:11 Calcium 9.3 (8.4-10.2) mg/dL Pituitary panel 08/28/21 Range/Units 04:11 Sodium 145 (137-145) mmol/L Potassium 3.6 (3.6-5.0) mmol/L Chloride 109.2 H (98-107) mmol/L Carbon Dioxide 22 (22-30) mmol/L BUN 22 H (7-17) mg/dL Creatinine 0.7 (0.6-1.2) mg/dL Glucose 137 H (65-100) mg/dL Calcium 9.3 (8.4-10.2) mg/dL Adrenal panel 08/28/21 Range/Units 04:11 Sodium 145 (137-145) mmol/L Potassium 3.6 (3.6-5.0) mmol/L Chloride 109.2 H (98-107) mmol/L Carbon Dioxide 22 (22-30) mmol/L BUN 22 H (7-17) mg/dL Creatinine 0.7 (0.6-1.2) mg/dL Glucose 137 H (65-100) mg/dL Calcium 9.3 (8.4-10.2) mg/dL
--- NOTE | 2021-08-28 08:18 | Progress Note ---
Assessment and Plan 76 y/o female with acute respiratory failure secondary to angioedema 08/28/21: would like to get patient off of continuous sedation so will scheduled tramadol therapy with hopes of weaning Fent Drip. Will order fent 50Q2 PRN pain to help with this as well. Will likely need to be placed on bowel regimen to prevent constipation. Once off continuous drips, can start PSV trials. 08/27/21: Start using peg. Continue PRN fent pushes and will add PRN tramadol as well. Wean sedation off. Can start PSV trials as early as tomorrow. 1. Agree with IV steroids 2. Suggest adding scheduled benadryl and pepcid 3. If swelling does not improve in the next 24-48 hours, suggest a trial of FFP 4. Wean FiO2 for sats > 88% CCT 31 minutes Subjective Date of service: 08/28/21 Interval history: No acute events. Still on Fentanyl 5 and Diprovan at 5. Awake and alert. On 35%, but full vent support. no doses of tramadol given on yesterday. Objective Vital Signs - 12hr 08/27/21 08/27/21 08/27/21 21:00 22:00 22:46 Temperature Pulse Rate 83 91 H 85 Respiratory 20 26 H 19 Rate Blood Pressure 109/58 119/71 119/71 O2 Sat by Pulse 99 99 100 Oximetry O2 Sat by Pulse Oximetry [ Assessment] 08/27/21 08/27/21 08/28/21 23:00 23:30 00:00 Temperature 98.5 F Pulse Rate 82 80 70 Respiratory 20 20 Rate Blood Pressure 109/68 109/68 96/51 O2 Sat by Pulse 99 98 98 Oximetry O2 Sat by Pulse Oximetry [ Assessment] 08/28/21 08/28/21 08/28/21 00:20 01:00 02:00 Temperature Pulse Rate 74 75 Respiratory 20 20 Rate Blood Pressure 97/48 98/69 O2 Sat by Pulse 99 99 Oximetry O2 Sat by Pulse 99 Oximetry [ Assessment] 08/28/21 08/28/21 08/28/21 03:00 03:53 04:00 Temperature 99.0 F Pulse Rate 74 76 78 Respiratory 20 21 Rate Blood Pressure 87/50 102/57 104/58 O2 Sat by Pulse 98 99 99 Oximetry O2 Sat by Pulse Oximetry [ Assessment] 08/28/21 08/28/2108/28/22 05:00 06:00 07:00 Temperature Pulse Rate 79 81 79 Respiratory 22 24 20 Rate Blood Pressure 103/59 92/56 111/57 O2 Sat by Pulse 100 100 100 Oximetry O2 Sat by Pulse Oximetry [ Assessment] Constitutional: no acute distress, other (Sedated) ENT: other (orally intubated, macroglossia) Neck: supple, no lymphadenopathy Effort: other (Supported on ventilator) Ascultation: Bilateral: clear Percussion: Bilateral: not dull Cardiovascular: regular rate and rhythm Gastrointestinal: normoactive bowel sounds Extremities: no cyanosis, no edema, pink and warm Neurologic: other (Sedated) Psychiatric: other (Sedated) CBC and BMP: 08/28/21 04:11 08/28/21 04:11 ABG, PT/INR, D-dimer: ABG ABG pH 7.516 pH Units (7.350-7.450) H 08/27/21 03:56 POC ABG pCO2 30.1 mmHg (32.0-48.0) L 08/22/21 10:16 ABG pCO2 34.4 mm Hg 08/27/21 03:56 POC ABG pO2 109.5 mmHg (83-108) H 08/22/21 10:16 ABG pO2 117.0 mm Hg (80.0-90.0) H 08/27/21 03:56 POC ABG HCO3 23.5 08/22/21 10:16 ABG O2 Saturation 98.4 % (95.0-99.0) 08/27/21 03:56 PT/INR, D-dimer PT 12.8 Sec. (12.2-14.9) 08/19/21 02:24 INR 0.87 (0.87-1.13) 08/19/21 02:24 Abnormal lab findings: Abnormal Labs 08/19/21 08/19/21 08/19/21 02:24 02:24 02:24 WBC 13.9 H RBC MCV 98 H MCH 33 H RDW 15.7 H Seg Neuts % (Manual) Lymphocytes % (Manual) 52.0 H Lymphocytes # (Manual) 7.2 H APTT 20.0 L ABG pH POC ABG pCO2 POC ABG pO2 ABG pO2 ABG HCO3 ABG O2 Saturation ABG Base Excess ABG Hemoglobin Oxyhemoglobin Potassium 3.3 L Chloride Carbon Dioxide 20 L BUN Glucose 143 H POC Glucose Calcium Phosphorus Magnesium Total Protein 8.3 H Triglycerides 08/19/21 08/19/21 08/19/21 06:15 10:20 11:10 WBC RBC MCV MCH RDW Seg Neuts % (Manual) Lymphocytes % (Manual) Lymphocytes # (Manual) APTT ABG pH 7.465 H 7.503 H POC ABG pCO2 POC ABG pO2 ABG pO2 177.7 H 90.5 H ABG HCO3 ABG O2 Saturation 99.2 H ABG Base Excess ABG Hemoglobin Oxyhemoglobin Potassium Chloride Carbon Dioxide BUN Glucose POC Glucose 171 H Calcium Phosphorus Magnesium Total Protein Triglycerides 08/19/21 08/20/21 08/20/21 16:33 00:03 04:25 WBC RBC MCV 98 H MCH 33 H RDW 15.9 H Seg Neuts % (Manual) 83.0 H Lymphocytes % (Manual) Lymphocytes # (Manual) APTT ABG pH POC ABG pCO2 POC ABG pO2 ABG pO2 ABG HCO3 ABG O2 Saturation ABG Base Excess ABG Hemoglobin Oxyhemoglobin Potassium Chloride Carbon Dioxide BUN Glucose POC Glucose 179 H 133 H Calcium Phosphorus Magnesium Total Protein Triglycerides 08/20/21 08/20/21 08/20/21 04:25 04:30 05:39 WBC RBC MCV MCH RDW Seg Neuts % (Manual) Lymphocytes % (Manual) Lymphocytes # (Manual) APTT ABG pH POC ABG pCO2 POC ABG pO2 ABG pO2 95.5 H ABG HCO3 ABG O2 Saturation ABG Base Excess -2.2 L ABG Hemoglobin Oxyhemoglobin Potassium Chloride Carbon Dioxide 21 L BUN Glucose 143 H POC Glucose 168 H Calcium 8.2 L Phosphorus Magnesium Total Protein Triglycerides 08/20/21 08/20/21 08/21/21 12:04 16:38 00:12 WBC RBC MCV MCH RDW Seg Neuts % (Manual) Lymphocytes % (Manual) Lymphocytes # (Manual) APTT ABG pH POC ABG pCO2 POC ABG pO2 ABG pO2 ABG HCO3 ABG O2 Saturation ABG Base Excess ABG Hemoglobin Oxyhemoglobin Potassium Chloride Carbon Dioxide BUN Glucose POC Glucose 151 H 135 H 123 H Calcium Phosphorus Magnesium Total Protein Triglycerides 08/21/21 08/21/21 08/21/21 04:58 04:58 04:59 WBC RBC 3.64 L MCV 100 H MCH RDW 16.4 H Seg Neuts % (Manual) Lymphocytes % (Manual) Lymphocytes # (Manual) APTT ABG pH POC ABG pCO2 POC ABG pO2 ABG pO2 ABG HCO3 ABG O2 Saturation ABG Base Excess -2.6 L ABG Hemoglobin 11.6 L Oxyhemoglobin Potassium 3.5 L Chloride 109.5 H Carbon Dioxide 19 L BUN Glucose 159 H POC Glucose Calcium 8.3 L Phosphorus Magnesium Total Protein Triglycerides 08/21/21 08/21/21 08/21/21 05:22 11:21 16:29 WBC RBC MCV MCH RDW Seg Neuts % (Manual) Lymphocytes % (Manual) Lymphocytes # (Manual) APTT ABG pH POC ABG pCO2 POC ABG pO2 ABG pO2 ABG HCO3 ABG O2 Saturation ABG Base Excess ABG Hemoglobin Oxyhemoglobin Potassium Chloride Carbon Dioxide BUN Glucose POC Glucose 143 H 133 H 122 H Calcium Phosphorus Magnesium Total Protein Triglycerides 08/22/21 08/22/21 08/22/21 00:03 03:54 03:54 WBC RBC 3.53 L MCV 100 H MCH 33 H RDW 16.7 H Seg Neuts % (Manual) Lymphocytes % (Manual) Lymphocytes # (Manual) APTT ABG pH POC ABG pCO2 POC ABG pO2 ABG pO2 ABG HCO3 ABG O2 Saturation ABG Base Excess ABG Hemoglobin Oxyhemoglobin Potassium Chloride 107.5 H Carbon Dioxide BUN Glucose 123 H POC Glucose 132 H Calcium Phosphorus Magnesium Total Protein Triglycerides 08/22/21 08/22/21 08/22/21 04:40 06:08 10:16 WBC RBC MCV MCH RDW Seg Neuts % (Manual) Lymphocytes % (Manual) Lymphocytes # (Manual) APTT ABG pH 7.454 H 7.511 H POC ABG pCO2 30.1 L POC ABG pO2 109.5 H ABG pO2 109.8 H ABG HCO3 ABG O2 Saturation ABG Base Excess ABG Hemoglobin Oxyhemoglobin Potassium Chloride Carbon Dioxide BUN Glucose POC Glucose 137 H Calcium Phosphorus Magnesium Total Protein Triglycerides 08/22/21 08/22/21 08/22/21 10:27 10:27 11:13 WBC RBC MCV 99 H MCH RDW 16.6 H Seg Neuts % (Manual) Lymphocytes % (Manual) Lymphocytes # (Manual) APTT ABG pH POC ABG pCO2 POC ABG pO2 ABG pO2 ABG HCO3 ABG O2 Saturation ABG Base Excess ABG Hemoglobin Oxyhemoglobin Potassium Chloride Carbon Dioxide BUN Glucose 129 H POC Glucose 125 H Calcium Phosphorus Magnesium Total Protein Triglycerides 08/22/21 08/23/21 08/23/21 23:39 04:11 04:11 WBC RBC MCV 98 H MCH 33 H RDW 16.1 H Seg Neuts % (Manual) Lymphocytes % (Manual) Lymphocytes # (Manual) APTT ABG pH POC ABG pCO2 POC ABG pO2 ABG pO2 ABG HCO3 ABG O2 Saturation ABG Base Excess ABG Hemoglobin Oxyhemoglobin Potassium Chloride Carbon Dioxide BUN Glucose 148 H POC Glucose 117 H Calcium Phosphorus Magnesium Total Protein Triglycerides 08/23/21 08/23/21 08/23/21 05:32 11:02 18:04 WBC RBC MCV MCH RDW Seg Neuts % (Manual) Lymphocytes % (Manual) Lymphocytes # (Manual) APTT ABG pH POC ABG pCO2 POC ABG pO2 ABG pO2 ABG HCO3 ABG O2 Saturation ABG Base Excess ABG Hemoglobin Oxyhemoglobin Potassium Chloride Carbon Dioxide BUN Glucose POC Glucose 173 H 146 H 129 H Calcium Phosphorus Magnesium Total Protein Triglycerides 08/24/21 08/24/21 08/24/21 00:27 05:20 06:00 WBC RBC MCV MCH RDW Seg Neuts % (Manual) Lymphocytes % (Manual) Lymphocytes # (Manual) APTT ABG pH 7.481 H POC ABG pCO2 POC ABG pO2 ABG pO2 95.8 H ABG HCO3 29.8 H ABG O2 Saturation ABG Base Excess 5.8 H ABG Hemoglobin Oxyhemoglobin Potassium Chloride Carbon Dioxide BUN Glucose POC Glucose 146 H 159 H Calcium Phosphorus Magnesium Total Protein Triglycerides 08/24/21 08/25/21 08/25/21 11:37 05:13 11:38 WBC RBC MCV MCH RDW Seg Neuts % (Manual) Lymphocytes % (Manual) Lymphocytes # (Manual) APTT ABG pH POC ABG pCO2 POC ABG pO2 ABG pO2 ABG HCO3 ABG O2 Saturation ABG Base Excess ABG Hemoglobin Oxyhemoglobin Potassium Chloride Carbon Dioxide BUN Glucose POC Glucose 154 H 121 H 135 H Calcium Phosphorus Magnesium Total Protein Triglycerides 08/25/21 08/25/21 08/26/21 16:00 17:12 00:04 WBC RBC MCV MCH RDW Seg Neuts % (Manual) Lymphocytes % (Manual) Lymphocytes # (Manual) APTT ABG pH POC ABG pCO2 POC ABG pO2 ABG pO2 78.3 L ABG HCO3 32.7 H ABG O2 Saturation ABG Base Excess 6.3 H ABG Hemoglobin 11.0 L Oxyhemoglobin 93.9 L Potassium Chloride Carbon Dioxide BUN Glucose POC Glucose 179 H 140 H Calcium Phosphorus Magnesium Total Protein Triglycerides 08/26/21 08/26/21 08/26/21 04:22 04:59 04:59 WBC 12.9 H RBC 3.54 L MCV MCH RDW 15.6 H Seg Neuts % (Manual) Lymphocytes % (Manual) Lymphocytes # (Manual) APTT ABG pH 7.533 H POC ABG pCO2 POC ABG pO2 ABG pO2 76.9 L ABG HCO3 29.2 H ABG O2 Saturation ABG Base Excess 6.4 H ABG Hemoglobin 11.6 L Oxyhemoglobin Potassium 3.5 L Chloride Carbon Dioxide BUN 28 H Glucose 139 H POC Glucose Calcium Phosphorus Magnesium Total Protein Triglycerides 08/26/21 08/26/21 08/26/21 05:34 11:21 16:52 WBC RBC MCV MCH RDW Seg Neuts % (Manual) Lymphocytes % (Manual) Lymphocytes # (Manual) APTT ABG pH POC ABG pCO2 POC ABG pO2 ABG pO2 ABG HCO3 ABG O2 Saturation ABG Base Excess ABG Hemoglobin Oxyhemoglobin Potassium Chloride Carbon Dioxide BUN Glucose POC Glucose 152 H 145 H 151 H Calcium Phosphorus Magnesium Total Protein Triglycerides 08/27/21 08/27/21 08/27/21 03:56 04:25 04:25 WBC 12.4 H RBC 3.39 L MCV 98 H MCH RDW 15.8 H Seg Neuts % (Manual) Lymphocytes % (Manual) Lymphocytes # (Manual) APTT ABG pH 7.516 H POC ABG pCO2 POC ABG pO2 ABG pO2 117.0 H ABG HCO3 27.2 H ABG O2 Saturation ABG Base Excess 4.3 H ABG Hemoglobin 11.1 L Oxyhemoglobin Potassium Chloride Carbon Dioxide BUN 27 H Glucose POC Glucose Calcium Phosphorus 2.10 L Magnesium 2.50 H Total Protein Triglycerides 08/27/21 08/27/21 08/27/21 04:25 17:31 23:37 WBC RBC MCV MCH RDW Seg Neuts % (Manual) Lymphocytes % (Manual) Lymphocytes # (Manual) APTT ABG pH POC ABG pCO2 POC ABG pO2 ABG pO2 ABG HCO3 ABG O2 Saturation ABG Base Excess ABG Hemoglobin Oxyhemoglobin Potassium Chloride Carbon Dioxide BUN Glucose POC Glucose 111 H 122 H Calcium Phosphorus Magnesium Total Protein Triglycerides 200 H 08/28/21 08/28/21 04:11 04:11 WBC 17.2 H RBC 3.29 L MCV 99 H MCH RDW 16.2 H Seg Neuts % (Manual) Lymphocytes % (Manual) Lymphocytes # (Manual) APTT ABG pH POC ABG pCO2 POC ABG pO2 ABG pO2 ABG HCO3 ABG O2 Saturation ABG Base Excess ABG Hemoglobin Oxyhemoglobin Potassium Chloride 109.2 H Carbon Dioxide BUN 22 H Glucose 137 H POC Glucose Calcium Phosphorus Magnesium Total Protein Triglycerides
[2021-08-28] MEDS: NYSTATIN 500,000 UNIT/5 ML ORAL LIQD PO SCH ×3 (08:43→20:59)
[2021-08-28] MEDS: THIAMINE 100 MG TAB FEEDTUBE SCH (09:13)
[2021-08-28] MEDS: MULTIVITAMIN / MINERAL ORAL LIQUID 15 ML FEEDTUBE SCH (09:13)
[2021-08-28] MEDS: FOLIC ACID 1 MG TAB FEEDTUBE SCH (09:13)
[2021-08-28] MEDS: FAMOTIDINE 20 MG TAB FEEDTUBE SCH ×2 (09:13→23:00)
[2021-08-28] MEDS: busPIRone 10 MG TAB FEEDTUBE SCH ×2 (09:13→23:00)
[2021-08-28] MEDS: SERTRALINE 25 MG TAB FEEDTUBE SCH (09:13)
[2021-08-28] MEDS: traMADol 50 MG TAB FEEDTUBE SCH ×3 (09:13→21:59)
[2021-08-28] MEDS: SENNOSIDES ORAL LIQD 8.8 MG/5 ML ORAL LIQD FEEDTUBE SCH ×2 (09:14→23:00)
[2021-08-28] MEDS: DOCUSATE SODIUM 100 MG/10 ML ORAL LIQD PO SCH ×2 (09:14→23:00)
[2021-08-28] MEDS: HEPARIN 5,000 UNIT/1 ML VIAL SUB-Q SCH ×2 (09:14→23:00)
--- NOTE | 2021-08-28 12:13 | Progress Note ---
<DELICIA LOYA - Last Filed: 08/28/21 16:11> Assessment and Plan Assessment and plan: This is a 76-year-old female with hypertension, psychiatric illness, and hypothyroidism admitted with angioedema and intubated for airway protection Hospital Course to Date: 08/19: Patient started on tube feedings, potassium repleted, started on Benadryl and propofol for sedation. SSI started. Air leak present today however due to swelling of the tongue we will hold off extubation. CCM plans to try FFP in the a.m. if swelling not better. 08/20: Angioedema slightly better so we will hold off FFP today. Updated son at bedside but he did not know what medication she was taking and states that she has not had angioedema in the past. Patient still remains on Versed and propofol. Was given 500 mL bolus overnight for hypotension and will repeat for hypotension. 08/21: Leak test today at bedside with RT shows no leak and will give FFP today. Tongue looks a bit smaller today but given no leak, CCM will not extubate today. Sedated with propofol and versed. Son at bedside today. 08/22: RT performed leak test in the AM and stated there was a leak noted and placed the patient on CPAP. She was sedated on versed at 4 and propofol at 30 but these are off for CPAP. Will removed lewis. Received FFP yesterday. Angioedema is improved. Leak test performed again with Dr. Bailey and no leak audible. Switched back to AC and sedation restarted. 08/23: Remains on the vent and sedated. Cuff leak assessed again today by CCM, still no significant air leak noted. Per CCM keep patient intubated and sedated and continue IV steroids and histamine therapy for now. Fentanyl gtt added, plan to wean off versed for RASS goal of 0 to -1. 08/24: Arousable and appropriate on the vent and on low dose sedation. No cuff leak again today per RT. D/W CCM plan for CT neck w/o contrast for further eval. If CT neck normal, PSV trial and possible extubation tomorrow. 08/25: S/p extubation this am, audible stridor appreciated. S/p X2 doses of RaceEpi and IV solumedrol X1 dose. Patient currently stable on 4L NC, SPO2 at 9 4%. Patient is low threshold for re-intubation, case discussed with anesthesia in case of any decompensation. D/w CCM patient will need a trach if she is reintubated. Plan of care was thoroughly discussed with patient's son at the bedside by the retail agent. All question and concerns were addressed at this time. 08/26: Reintubated yesterday due to stridor. General Surgery consulted, plan for possible trach and PEG today. Hypotension resolved this am most likely due to sedation for intubation, VSS today. Wean SPO2 as tolerated for SPO2 above 90%. Continue to monitor and replete electrolytes as needed. 08/27: s/p Trach and PEG overnight. Patient is stable on the vent this am, sedated on propofol and fentanyl. okay to use PEG-tube per general surgery, resume TF as ordered. PRN Analgesia added for pain control, wean off sedation as tolerated. Plan for possible PSV trial tomorrow. 08/28: Stable on the vent, still on sedation. Schedule tramadol and PRN fentanyl added for pain control, plan to wean sedation as tolerated. Possible PSV trial tomorrow if off sedation. PRN Xanax for anxiety. BR added for constipation. Assessment and Plan Neuro:h/o depression -Restart home thiamine, multivitamin, Zoloft, BuSpar and as needed Xanax -Remains on sedation this am -Schedule tramadol and PRN fentynal added for pain control -Plan to wean off sedation -Avoid delirium -Reorientation as needed -Maintain sleep-wake cycle Cardiac:Hypertension -BP stable -resume home antihypertensive regimen when available and if needed -Continue blood pressure monitor per protocol -Hydralazine as needed for SBP above 160 Respiratory: Acute hypoxic respiratory failure 2/2 angioedema -Intubated in the emergency department on 08/19 for airway protection -[facility] consulted, appreciate recommendations -08/25 extubation and reintubated due to stridor -08/26 s/p Trach and PEG-tube by general surgery -Vent setting:PRVC-35%,6,20,450 -CT neck noted- large thyroid goiter and macroglossia reported, see report for full detail -[facility] consulted, appreciate recommendations -VAP bundle addressed -Aspiration precaution HOB above 30 -Daily SBT and SAT trials as tolerated -PRN ABG and CXR per [facility] -Continue SPO2 monitoring for SPO2 goal above 92% GI:TF -08/26 s/p Trach and PEG -Continue enteral nutrition -Nutrition on consult -BR added Urinary Retention -Lewis reinserted due to urinary retention -Possible bladder training/reassement once more stable -Keep lewis for now Endo: Hyperglycemia h/o hypothyroidism -Continue Q6hrs accucheck with SSI -Avoid hypoglycemia -While critically ill target blood glucose of 140-180 -continue synthroid GI/DVT Prophylaxis -PPI- Pepcid -Heparin SubQ -SCDs to bilateral lower extremities while in bed The high probability of a clinically significant, sudden or life threatening deterioration of the [Neuro, Resp] system(s) required my full and direct attention, intervention and personal management. The aggregate critical care time was [60] minutes. This time is in addition to time spent performing reported procedures but includes the following: [x] Data Review and interpretation [x] Patient assessment and monitoring of vital signs [x] Documentation [x] Medication orders and management Disposition Plan: ICU Total Time Spent with Patient (Minutes): 60 History Interval history: Patient seen and examined at the bedside. Trach and stable on the vent. Awake on fentanyl gtt, following commands, VSS. CARMEN overnight Hospitalist Physical - Physical exam Narrative exam: General appearance: Present: no acute distress, well-nourished, obese, other (Trach and sedated) - EENT Eyes: Present: PERRL - Neck Neck: Present: normal ROM - Respiratory Respiratory effort: normal Respiratory: bilateral: diminished - Cardiovascular Rhythm: regular Heart Sounds: Present: S1 & S2 - Extremities Extremities: no ischemia, pulses intact, pulses symmetrical Extremity abnormal: edema - Peripheral Assessment Generalized Edema Type: Non-pitting Edema Degree: 1+ Capillary Refill: < 3 seconds Skin Temperature: Warm Peripheral Pulses: within normal limits - Abdominal General gastrointestinal: soft, non-distended, normal bowel sounds - Integumentary Integumentary: Present: warm, dry - Psychiatric Psychiatric: other (trach and sedated) - Neurologic Neurologic: moves all extremities, other (trach and sedated) - Allied Health Allied health notes reviewed: nursing, case management - Constitutional Vitals: Temp Pulse Resp BP Pulse Ox 98.7 F 79 19 90/62 99 08/28/21 08:00 08/28/21 11:00 08/28/21 11:00 08/28/21 11:00 08/28/21 11:00 Results - Labs CBC & Chem 7: 08/28/21 04:11 08/28/21 04:11 Labs: Laboratory Last Values WBC 17.2 K/mm3 (4.5-11.0) H 08/28/21 04:11 RBC 3.29 M/mm3 (3.65-5.03) L 08/28/21 04:11 Hgb 10.6 gm/dl (10.1-14.3) 08/28/21 04:11 Hct 32.6 % (30.3-42.9) 08/28/21 04:11 MCV 99 fl (79-97) H 08/28/21 04:11 MCH 32 pg (28-32) 08/28/21 04:11 MCHC 33 % (30-34) 08/28/21 04:11 RDW 16.2 % (13.2-15.2) H 08/28/21 04:11 Plt Count 227 K/mm3 (140-440) 08/28/21 04:11 Lymph # (Auto) Head Filter Tank Tender Helper 08/19/21 02:24 Add Manual Diff Complete 08/20/21 04:25 Total Counted 100 08/20/21 04:25 Seg Neuts % (Manual) 83.0 % (40.0-70.0) H 08/20/21 04:25 Band Neutrophils % 0 % 08/20/21 04:25 Lymphocytes % (Manual) 14.0 % (13.4-35.0) 08/20/21 04:25 Reactive Lymphs % (Man) 0 % 08/20/21 04:25 Monocytes % (Manual) 3.0 % (0.0-7.3) 08/20/21 04:25 Eosinophils % (Manual) 0 % (0.0-4.3) 08/20/21 04:25 Basophils % (Manual) 0 % (0.0-1.8) 08/20/21 04:25 Metamyelocytes % 0 % 08/20/21 04:25 Myelocytes % 0 % 08/20/21 04:25 Promyelocytes % 0 % 08/20/21 04:25 Blast Cells % 0 % 08/20/21 04:25 Nucleated RBC % Not Reportable 08/20/21 04:25 Seg Neutrophils # Man 7.5 K/mm3 (1.8-7.7) 08/20/21 04:25 Band Neutrophils # 0.0 K/mm3 08/20/21 04:25 Lymphocytes # (Manual) 1.3 K/mm3 (1.2-5.4) 08/20/21 04:25 Abs React Lymphs (Man) 0.0 K/mm3 08/20/21 04:25 Monocytes # (Manual) 0.3 K/mm3 (0.0-0.8) 08/20/21 04:25 Eosinophils # (Manual) 0.0 K/mm3 (0.0-0.4) 08/20/21 04:25 Basophils # (Manual) 0.0 K/mm3 (0.0-0.1) 08/20/21 04:25 Metamyelocytes # 0.0 K/mm3 08/20/21 04:25 Myelocytes # 0.0 K/mm3 08/20/21 04:25 Promyelocytes # 0.0 K/mm3 08/20/21 04:25 Blast Cells # 0.0 K/mm3 08/20/21 04:25 WBC Morphology Not Reportable 08/20/21 04:25 Hypersegmented Neuts Not Reportable 08/20/21 04:25 Hyposegmented Neuts Not Reportable 08/20/21 04:25 Hypogranular Neuts Not Reportable 08/20/21 04:25 Smudge Cells Not Reportable 08/20/21 04:25 Toxic Granulation Not Reportable 08/20/21 04:25 Toxic Vacuolation Not Reportable 08/20/21 04:25 Dohle Bodies Not Reportable 08/20/21 04:25 Pelger-Huet Anomaly Not Reportable 08/20/21 04:25 Erik Rods Not Reportable 08/20/21 04:25 Platelet Estimate Consistent w auto 08/20/21 04:25 Clumped Platelets Not Reportable 08/20/21 04:25 Plt Clumps, EDTA Not Reportable 08/20/21 04:25 Large Platelets Rare 08/20/21 04:25 Giant Platelets Not Reportable 08/20/21 04:25 Platelet Satelliting Not Reportable 08/20/21 04:25 Plt Morphology Comment Not Reportable 08/20/21 04:25 RBC Morphology Not Reportable 08/20/21 04:25 Dimorphic RBCs Not Reportable 08/20/21 04:25 Polychromasia Not Reportable 08/20/21 04:25 Hypochromasia Not Reportable 08/20/21 04:25 Poikilocytosis Rare 08/20/21 04:25 Anisocytosis Rare 08/20/21 04:25 Microcytosis Not Reportable 08/20/21 04:25 Macrocytosis Not Reportable 08/20/21 04:25 Spherocytes Not Reportable 08/20/21 04:25 Pappenheimer Bodies Not Reportable 08/20/21 04:25 Sickle Cells Not Reportable 08/20/21 04:25 Target Cells Not Reportable 08/20/21 04:25 Tear Drop Cells Not Reportable 08/20/21 04:25 Ovalocytes Rare 08/20/21 04:25 Helmet Cells Not Reportable 08/20/21 04:25 [place] Bodies Not Reportable 08/20/21 04:25 Gypsy Rings Not Reportable 08/20/21 04:25 Pandora Cells Not Reportable 08/20/21 04:25 Bite Cells Not Reportable 08/20/21 04:25 Crenated Cell Not Reportable 08/20/21 04:25 Elliptocytes Not Reportable 08/20/21 04:25 Acanthocytes (Spur) Not Reportable 08/20/21 04:25 Rouleaux Not Reportable 08/20/21 04:25 Hemoglobin C Crystals Not Reportable 08/20/21 04:25 Schistocytes Not Reportable 08/20/21 04:25 Malaria parasites Not Reportable 08/20/21 04:25 Marco Bodies Not Reportable 08/20/21 04:25 Hem Pathologist Commnt No 08/20/21 04:25 PT 12.8 Sec. (12.2-14.9) 08/19/21 02:24 INR 0.87 (0.87-1.13) 08/19/21 02:24 APTT 20.0 Sec. (24.2-36.6) L 08/19/21 02:24 ABG pH 7.516 pH Units (7.350-7.450) H 08/27/21 03:56 POC ABG pCO2 30.1 mmHg (32.0-48.0) L 08/22/21 10:16 ABG pCO2 34.4 mm Hg 08/27/21 03:56 POC ABG pO2 109.5 mmHg (83-108) H 08/22/21 10:16 ABG pO2 117.0 mm Hg (80.0-90.0) H 08/27/21 03:56 POC ABG HCO3 23.5 08/22/21 10:16 ABG HCO3 27.2 mmol/L (20.0-26.0) H 08/27/21 03:56 ABG O2 Saturation 98.4 % (95.0-99.0) 08/27/21 03:56 ABG O2 Content 15.3 (0.0-44) 08/27/21 03:56 POC ABG Base Excess 1.2 08/22/21 10:16 ABG Base Excess 4.3 mmol/L (-2.0-3.0) H 08/27/21 03:56 ABG Hemoglobin 11.1 gm/dl (12.0-16.0) L 08/27/21 03:56 ABG Oxyhemoglobin 96.8 (94-98) 08/22/21 10:16 ABG Carboxyhemoglobin 1.0 % (0.0-5.0) 08/27/21 03:56 ABG Methemoglobin 0.5 % (0.0-1.5) 08/27/21 03:56 ABG Sodium Not Reportable 08/22/21 10:16 ABG Potassium Not Reportable 08/22/21 10:16 ABG Chloride Not Reportable 08/22/21 10:16 ABG Glucose Not Reportable 08/22/21 10:16 Oxyhemoglobin 96.9 % (95.0-99.0) 08/27/21 03:56 Carboxyhemoglobin 1.1 (0.5-1.5) 08/22/21 10:16 FiO2 40 % 08/27/21 03:56 FiO2 % 30.0 08/22/21 10:16 Sodium 145 mmol/L (137-145) 08/28/21 04:11 Potassium 3.6 mmol/L (3.6-5.0) 08/28/21 04:11 Chloride 109.2 mmol/L (98-107) H 08/28/21 04:11 Carbon Dioxide 22 mmol/L (22-30) 08/28/21 04:11 Anion Gap 17 mmol/L 08/28/21 04:11 BUN 22 mg/dL (7-17) H 08/28/21 04:11 Creatinine 0.7 mg/dL (0.6-1.2) 08/28/21 04:11 Estimated GFR > 60 ml/min 08/28/21 04:11 BUN/Creatinine Ratio 31 % 08/28/21 04:11 Glucose 137 mg/dL (65-100) H 08/28/21 04:11 POC Glucose 144 mg/dL (70-105) H 08/28/21 11:18 Calcium 9.3 mg/dL (8.4-10.2) 08/28/21 04:11 Phosphorus 2.10 mg/dL (2.5-4.5) L 08/27/21 04:25 Magnesium 2.50 mg/dL (1.7-2.3) H 08/27/21 04:25 Total Bilirubin 0.40 mg/dL (0.1-1.2) 08/20/21 04:25 AST 23 units/L (5-40) 08/20/21 04:25 ALT 13 units/L (7-56) 08/20/21 04:25 Alkaline Phosphatase 94 units/L (35-129) 08/20/21 04:25 Total Protein 7.3 g/dL (6.3-8.2) 08/20/21 04:25 Albumin 4.0 g/dL (3.9-5) 08/20/21 04:25 Albumin/Globulin Ratio 1.2 % 08/20/21 04:25 Triglycerides 200 mg/dL (2-149) H 08/27/21 04:25 Arterial Blood Glucose Not Reportable 08/22/21 10:16 Blood Type A POSITIVE 08/21/21 15:10 Lewis/IV: Voiding Method Indwelling Catheter Active Medications - Current Medications Current Medications: Generic Name Dose Route Start Last Admin Trade Name Freq PRN Reason Stop Dose Admin Acetaminophen 650 mg 08/19/21 06:00 08/27/21 11:55 Acetaminophen 325 Mg Tab FEEDTUBE 650 mg Q4H PRN Administration Pain MILD(1-3)/Fever >100.5/SAEED Albuterol 2.5 mg 08/19/21 04:50 Albuterol 2.5 Mg/3 Ml Nebu IH Q3HRT PRN Shortness Of Breath Alprazolam 0.25 mg 08/19/21 06:00 Alprazolam 0.25 Mg Tab FEEDTUBE BID PRN Anxiety Atorvastatin Calcium 10 mg 08/23/21 22:00 08/27/21 22:02 Atorvastatin 10 Mg Tab FEEDTUBE 10 mg QHS WARD Administration Buspirone HCl 10 mg 08/19/21 10:00 08/28/21 09:13 Buspirone 10 Mg Tab FEEDTUBE 10 mg BID WARD Administration Dextrose 50 ml 08/20/21 10:00 Dextrose 50% In Water (25gm) 50 Ml Syringe IV Q30MIN PRN Hypoglycemia Protocol Docusate Sodium 100 mg 08/28/21 10:00 08/28/21 09:14 Docusate Sodium 100 Mg/10 Ml Oral Liqd PO 100 mg BID WARD Administration Famotidine 20 mg 08/27/21 22:00 08/28/21 09:13 Famotidine 20 Mg Tab FEEDTUBE 20 mg BID WARD Administration Fentanyl 50 mcg 08/28/21 09:37 Fentanyl 100 Mcg/2 Ml Inj IV Q2H PRN Pain , Severe (7-10) Folic Acid 1 mg 08/19/21 10:00 08/28/21 09:13 Folic Acid 1 Mg Tab FEEDTUBE 1 mg QDAY WARD Administration Heparin Sodium (Porcine) 5,000 unit 08/19/21 10:00 08/28/21 09:14 Heparin 5,000 Unit/1 Ml Vial SUB-Q 5,000 unit Q12HR WARD Administration Hydralazine HCl 10 mg 08/19/21 05:03 08/24/21 18:09 Hydralazine 20 Mg/1 Ml Inj IV 10 mg Q6H PRN Administration SBP >/=160; DBP >/=100 Propofol 1,000 mg in 100 mls @ 2.722 mls/hr 08/19/21 12:00 08/28/21 08:34 Diprivan 10 Mg/Ml IV 0 mcg/kg/min TITR WARD 0 mls/hr Titration Protocol 5 MCG/KG/MIN Fentanyl Citrate 2,000 mcg in 100 mls @ 2.125 mls/hr 08/23/21 12:00 08/28/21 11:37 Fentanyl Drip Premix IV 1 mcg/kg/hr TITR WARD 2.125 mls/hr Titration Protocol 1 MCG/KG/HR NORepinephrine/NS 8 MG-250 ML 8 mg in 250 mls @ 3.75 mls/hr 08/25/21 15:00 08/25/21 14:30 Norepinephrine/Ns 8 Mg-250 Ml (Double Conc) IV 2 mcg/min TITRATE WARD 3.75 mls/hr Administration Protocol 2 MCG/MIN Insulin Human Regular 0 units 08/20/21 12:00 08/28/21 06:21 Insulin Regular, Human 100 Units/1 Ml SUB-Q Not Given Q6H WARD Protocol Levothyroxine Sodium 150 mcg 08/19/21 06:00 08/28/21 06:13 Levothyroxine 75 Mcg Tab FEEDTUBE 150 mcg DAILY@0600 WARD Administration Nystatin 100,000 unit 08/28/21 08:00 08/28/21 08:43 Nystatin 500,000 Unit/5 Ml Oral Liqd PO 100,000 unit TID WARD Administration Ondansetron HCl 4 mg 08/19/21 04:50 Ondansetron 4 Mg/2 Ml Inj IV Q8H PRN Nausea And Vomiting Senna 8.8 mg 08/28/21 10:00 08/28/21 09:14 Sennosides Oral Liqd 8.8 Mg/5 Ml Oral Liqd FEEDTUBE 8.8 mg BID WARD Administration Sertraline HCl 25 mg 08/19/21 10:00 08/28/21 09:13 Sertraline 25 Mg Tab FEEDTUBE 25 mg QDAY WARD Administration Sodium Chloride 10 ml 08/19/21 10:00 08/28/21 09:14 Sodium Chloride 0.9% 10 Ml Flush Syringe IV 10 ml BID WARD Administration Sodium Chloride 10 ml 08/19/21 04:50 Sodium Chloride 0.9% 10 Ml Flush Syringe IV PRN PRN LINE FLUSH Sucralfate 1 gm 08/23/21 18:00 08/28/21 06:12 Sucralfate 1 Gm Tab FEEDTUBE 1 gm Q6HR WARD Administration Thiamine HCl 100 mg 08/19/21 10:00 08/28/21 09:13 Thiamine 100 Mg Tab FEEDTUBE 100 mg QDAY WARD Administration Tramadol HCl 50 mg 08/28/21 09:00 08/28/21 09:13 Tramadol 50 Mg Tab FEEDTUBE 50 mg Q6H WARD Administration Nutrition/Malnutrition Assess - Dietary Evaluation Nutrition/Malnutrition Findings: Nutrition Notes Start: 08/19/21 10:13 Freq: Status: Active Protocol: Document 08/25/21 17:57 ABRAHAM (Rec: 08/25/21 18:22 ABRAHAM [id number]) Nutrition Notes Initial or Follow up Brief Note Current Diagnosis Hypertension,Respiratory Failure Other Pertinent Diagnosis Angioedema, Hypothyroidism, Psychosis. Current Diet TF-Glucerna 1.2 Dieudonne @ 45 ml/hr (since D 08/23). Height 4 ft 11 in Weight 74 kg [place] Body Weight (kg) 43.18 BMI 32.9 Weight change and time frame No body weight change reported in 2 days. Weight Status Obese Subjective/Other Information RD consult for routine F/U on TF tolerance. TF continues as prescribed, well tolerated, according to RN notes. Pt extubated on 08/25 am, but on low threshold for reintubation; later reintubation was necessary but Pt refused initially, later Pt gave verbal consent and was reintubated. Propofol not given. Plans to place PEG tube on . Percent of energy/protein needs met: Prescribed TF-Glucerna 1.2 Dieudonne @ 45 ml/hr provides for energy/protein needs (1,269 Kcal/65 g) during LOS, 94% Kcal; 70% AA. #1 Nutrition Diagnosis Inadequate oral intake Diagnosis Progress(for reassessment Continues documentation) Is patient on ventilator? Yes Is Patient Ambulatory and/or Out of Bed No REE-([facility]-confined to bed) 1375.068 Kcal/Kg value to use for calculation 17 Approximate Energy Requirements Using 1258 kcal/Kg Calculation Used for Recommendations Kcal/kg Additional Notes Protein: 2 g/Kg IBW; 86 g/day. Fluids: 1 ml/Kcal, or as per MD. Nutrition Intervention Nutrition Support: Continue TF-Glucerna 1.2 Dieudonne @ 45 ml/hr. Flush: 70 ml water Q 4 hr, or as per MD. Kcal 1,269 Protein (gm) 65 Carbohydrates (gm) 124 Fat (gm) 65 Fluid (mL) 869 Fiber (gm) 17 % RDI: 94% Kcal; 70% AA. Goal #1 Provide at least 75% of energy /protein needs through Enteral Feeding during LOS. Goal #2 Maintain body weight within +/ -3% of admission body weight during LOS. Follow-Up By: 08/30/21 Additional Comments Continue monitoring, Ventilation status, TF tolerance and BM. <CATRINA MONDRAGON - Last Filed: 08/29/21 07:09> Assessment and Plan Assessment and plan: I saw and evaluated the patient. I agree with the findings and the plan of care as documented in the Nurse Practitioner's~note, with the following corrections and additions. Hospitalist Physical - Constitutional Vitals: Temp Pulse Resp BP Pulse Ox 98.7 F 99 H 21 112/74 96 08/29/21 04:00 08/29/21 04:22 08/29/21 04:00 08/29/21 04:22 08/29/21 04:22 Results - Labs CBC & Chem 7: 08/29/21 04:12 08/29/21 04:12 Labs: Laboratory Last Values WBC 22.7 K/mm3 (4.5-11.0) H 08/29/21 04:12 RBC 3.35 M/mm3 (3.65-5.03) L 08/29/21 04:12 Hgb 10.7 gm/dl (10.1-14.3) 08/29/21 04:12 Hct 32.9 % (30.3-42.9) 08/29/21 04:12 MCV 98 fl (79-97) H 08/29/21 04:12 MCH 32 pg (28-32) 08/29/21 04:12 MCHC 33 % (30-34) 08/29/21 04:12 RDW 16.0 % (13.2-15.2) H 08/29/21 04:12 Plt Count 222 K/mm3 (140-440) 08/29/21 04:12 Lymph # (Auto) Head Filter Tank Tender Helper 08/19/21 02:24 Add Manual Diff Complete 08/20/21 04:25 Total Counted 100 08/20/21 04:25 Seg Neuts % (Manual) 83.0 % (40.0-70.0) H 08/20/21 04:25 Band Neutrophils % 0 % 08/20/21 04:25 Lymphocytes % (Manual) 14.0 % (13.4-35.0) 08/20/21 04:25 Reactive Lymphs % (Man) 0 % 08/20/21 04:25 Monocytes % (Manual) 3.0 % (0.0-7.3) 08/20/21 04:25 Eosinophils % (Manual) 0 % (0.0-4.3) 08/20/21 04:25 Basophils % (Manual) 0 % (0.0-1.8) 08/20/21 04:25 Metamyelocytes % 0 % 08/20/21 04:25 Myelocytes % 0 % 08/20/21 04:25 Promyelocytes % 0 % 08/20/21 04:25 Blast Cells % 0 % 08/20/21 04:25 Nucleated RBC % Not Reportable 08/20/21 04:25 Seg Neutrophils # Man 7.5 K/mm3 (1.8-7.7) 08/20/21 04:25 Band Neutrophils # 0.0 K/mm3 08/20/21 04:25 Lymphocytes # (Manual) 1.3 K/mm3 (1.2-5.4) 08/20/21 04:25 Abs React Lymphs (Man) 0.0 K/mm3 08/20/21 04:25 Monocytes # (Manual) 0.3 K/mm3 (0.0-0.8) 08/20/21 04:25 Eosinophils # (Manual) 0.0 K/mm3 (0.0-0.4) 08/20/21 04:25 Basophils # (Manual) 0.0 K/mm3 (0.0-0.1) 08/20/21 04:25 Metamyelocytes # 0.0 K/mm3 08/20/21 04:25 Myelocytes # 0.0 K/mm3 08/20/21 04:25 Promyelocytes # 0.0 K/mm3 08/20/21 04:25 Blast Cells # 0.0 K/mm3 08/20/21 04:25 WBC Morphology Not Reportable 08/20/21 04:25 Hypersegmented Neuts Not Reportable 08/20/21 04:25 Hyposegmented Neuts Not Reportable 08/20/21 04:25 Hypogranular Neuts Not Reportable 08/20/21 04:25 Smudge Cells Not Reportable 08/20/21 04:25 Toxic Granulation Not Reportable 08/20/21 04:25 Toxic Vacuolation Not Reportable 08/20/21 04:25 Dohle Bodies Not Reportable 08/20/21 04:25 Pelger-Huet Anomaly Not Reportable 08/20/21 04:25 Erik Rods Not Reportable 08/20/21 04:25 Platelet Estimate Consistent w auto 08/20/21 04:25 Clumped Platelets Not Reportable 08/20/21 04:25 Plt Clumps, EDTA Not Reportable 08/20/21 04:25 Large Platelets Rare 08/20/21 04:25 Giant Platelets Not Reportable 08/20/21 04:25 Platelet Satelliting Not Reportable 08/20/21 04:25 Plt Morphology Comment Not Reportable 08/20/21 04:25 RBC Morphology Not Reportable 08/20/21 04:25 Dimorphic RBCs Not Reportable 08/20/21 04:25 Polychromasia Not Reportable 08/20/21 04:25 Hypochromasia Not Reportable 08/20/21 04:25 Poikilocytosis Rare 08/20/21 04:25 Anisocytosis Rare 08/20/21 04:25 Microcytosis Not Reportable 08/20/21 04:25 Macrocytosis Not Reportable 08/20/21 04:25 Spherocytes Not Reportable 08/20/21 04:25 Pappenheimer Bodies Not Reportable 08/20/21 04:25 Sickle Cells Not Reportable 08/20/21 04:25 Target Cells Not Reportable 08/20/21 04:25 Tear Drop Cells Not Reportable 08/20/21 04:25 Ovalocytes Rare 08/20/21 04:25 Helmet Cells Not Reportable 08/20/21 04:25 [place]ai[place] Bodies Not Reportable 08/20/21 04:25 Gypsy Rings Not Reportable 08/20/21 04:25 [place] Cells Not Reportable 08/20/21 04:25 Bite Cells Not Reportable 08/20/21 04:25 Crenated Cell Not Reportable 08/20/21 04:25 Elliptocytes Not Reportable 08/20/21 04:25 Acanthocytes (Spur) Not Reportable 08/20/21 04:25 Rouleaux Not Reportable 08/20/21 04:25 Hemoglobin C Crystals Not Reportable 08/20/21 04:25 Schistocytes Not Reportable 08/20/21 04:25 Malaria parasites Not Reportable 08/20/21 04:25 Marco Bodies Not Reportable 08/20/21 04:25 Hem Pathologist Commnt No 08/20/21 04:25 PT 12.8 Sec. (12.2-14.9) 08/19/21 02:24 INR 0.87 (0.87-1.13) 08/19/21 02:24 APTT 20.0 Sec. (24.2-36.6) L 08/19/21 02:24 ABG pH 7.516 pH Units (7.350-7.450) H 08/27/21 03:56 POC ABG pCO2 30.1 mmHg (32.0-48.0) L 08/22/21 10:16 ABG pCO2 34.4 mm Hg 08/27/21 03:56 POC ABG pO2 109.5 mmHg (83-108) H 08/22/21 10:16 ABG pO2 117.0 mm Hg (80.0-90.0) H 08/27/21 03:56 POC ABG HCO3 23.5 08/22/21 10:16 ABG HCO3 27.2 mmol/L (20.0-26.0) H 08/27/21 03:56 ABG O2 Saturation 98.4 % (95.0-99.0) 08/27/21 03:56 ABG O2 Content 15.3 (0.0-44) 08/27/21 03:56 POC ABG Base Excess 1.2 08/22/21 10:16 ABG Base Excess 4.3 mmol/L (-2.0-3.0) H 08/27/21 03:56 ABG Hemoglobin 11.1 gm/dl (12.0-16.0) L 08/27/21 03:56 ABG Oxyhemoglobin 96.8 (94-98) 08/22/21 10:16 ABG Carboxyhemoglobin 1.0 % (0.0-5.0) 08/27/21 03:56 ABG Methemoglobin 0.5 % (0.0-1.5) 08/27/21 03:56 ABG Sodium Not Reportable 08/22/21 10:16 ABG Potassium Not Reportable 08/22/21 10:16 ABG Chloride Not Reportable 08/22/21 10:16 ABG Glucose Not Reportable 08/22/21 10:16 Oxyhemoglobin 96.9 % (95.0-99.0) 08/27/21 03:56 Carboxyhemoglobin 1.1 (0.5-1.5) 08/22/21 10:16 FiO2 40 % 08/27/21 03:56 FiO2 % 30.0 08/22/21 10:16 Sodium 137 mmol/L (137-145) D 08/29/21 04:12 Potassium 4.0 mmol/L (3.6-5.0) 08/29/21 04:12 Chloride 103.9 mmol/L (98-107) 08/29/21 04:12 Carbon Dioxide 22 mmol/L (22-30) 08/29/21 04:12 Anion Gap 15 mmol/L 08/29/21 04:12 BUN 19 mg/dL (7-17) H 08/29/21 04:12 Creatinine 0.8 mg/dL (0.6-1.2) 08/29/21 04:12 Estimated GFR > 60 ml/min 08/29/21 04:12 BUN/Creatinine Ratio 24 % 08/29/21 04:12 Glucose 121 mg/dL (65-100) H 08/29/21 04:12 POC Glucose 117 mg/dL (70-105) H 08/29/21 06:17 Calcium 9.8 mg/dL (8.4-10.2) 08/29/21 04:12 Phosphorus 3.50 mg/dL (2.5-4.5) 08/29/21 04:12 Magnesium 2.20 mg/dL (1.7-2.3) 08/29/21 04:12 Total Bilirubin 0.40 mg/dL (0.1-1.2) 08/20/21 04:25 AST 23 units/L (5-40) 08/20/21 04:25 ALT 13 units/L (7-56) 08/20/21 04:25 Alkaline Phosphatase 94 units/L (35-129) 08/20/21 04:25 Total Protein 7.3 g/dL (6.3-8.2) 08/20/21 04:25 Albumin 4.0 g/dL (3.9-5) 08/20/21 04:25 Albumin/Globulin Ratio 1.2 % 08/20/21 04:25 Triglycerides 200 mg/dL (2-149) H 08/27/21 04:25 Arterial Blood Glucose Not Reportable 08/22/21 10:16 Blood Type A POSITIVE 08/21/21 15:10 Lewis/IV: Voiding Method Indwelling Catheter Active Medications - Current Medications Current Medications: Generic Name Dose Route Start Last Admin Trade Name Freq PRN Reason Stop Dose Admin Acetaminophen 650 mg 08/19/21 06:00 08/27/21 11:55 Acetaminophen 325 Mg Tab FEEDTUBE 650 mg Q4H PRN Administration Pain MILD(1-3)/Fever >100.5/SAEED Albuterol 2.5 mg 08/19/21 04:50 Albuterol 2.5 Mg/3 Ml Nebu IH Q3HRT PRN Shortness Of Breath Alprazolam 0.25 mg 08/19/21 06:00 Alprazolam 0.25 Mg Tab FEEDTUBE BID PRN Anxiety Atorvastatin Calcium 10 mg 08/23/21 22:00 08/28/21 23:00 Atorvastatin 10 Mg Tab FEEDTUBE 10 mg QHS WARD Administration Buspirone HCl 10 mg 08/19/21 10:00 08/28/21 23:00 Buspirone 10 Mg Tab FEEDTUBE 10 mg BID WARD Administration Dextrose 50 ml 08/20/21 10:00 Dextrose 50% In Water (25gm) 50 Ml Syringe IV Q30MIN PRN Hypoglycemia Protocol Docusate Sodium 100 mg 08/28/21 10:00 08/28/21 23:00 Docusate Sodium 100 Mg/10 Ml Oral Liqd PO 100 mg BID WARD Administration Famotidine 20 mg 08/27/21 22:00 08/28/21 23:00 Famotidine 20 Mg Tab FEEDTUBE 20 mg BID WARD Administration Fentanyl 50 mcg 08/28/21 09:37 08/28/21 19:30 Fentanyl 100 Mcg/2 Ml Inj IV 50 mcg Q2H PRN Administration Pain , Severe (7-10) Folic Acid 1 mg 08/19/21 10:00 08/28/21 09:13 Folic Acid 1 Mg Tab FEEDTUBE 1 mg QDAY WARD Administration Heparin Sodium (Porcine) 5,000 unit 08/19/21 10:00 08/28/21 23:00 Heparin 5,000 Unit/1 Ml Vial SUB-Q 5,000 unit Q12HR WARD Administration Hydralazine HCl 10 mg 08/19/21 05:03 08/24/21 18:09 Hydralazine 20 Mg/1 Ml Inj IV 10 mg Q6H PRN Administration SBP >/=160; DBP >/=100 Propofol 1,000 mg in 100 mls @ 2.722 mls/hr 08/19/21 12:00 08/29/21 06:30 Diprivan 10 Mg/Ml IV 18.37 mcg/kg/min TITR WARD 10 mls/hr Titration Protocol 5 MCG/KG/MIN Fentanyl Citrate 2,000 mcg in 100 mls @ 2.125 mls/hr 08/23/21 12:00 08/28/21 20:37 Fentanyl Drip Premix IV 0 mcg/kg/hr TITR WARD 0 mls/hr Titration Protocol 1 MCG/KG/HR NORepinephrine/NS 8 MG-250 ML 8 mg in 250 mls @ 3.75 mls/hr 08/25/21 15:00 08/25/21 14:30 Norepinephrine/Ns 8 Mg-250 Ml (Double Conc) IV 2 mcg/min TITRATE WARD 3.75 mls/hr Administration Protocol 2 MCG/MIN Insulin Human Regular 0 units 08/20/21 12:00 08/29/21 06:27 Insulin Regular, Human 100 Units/1 Ml SUB-Q Not Given Q6H [facility] Protocol Levothyroxine Sodium 150 mcg 08/19/21 06:00 08/29/21 06:30 Levothyroxine 75 Mcg Tab FEEDTUBE 150 mcg DAILY@0600 WARD Administration Nystatin 100,000 unit 08/28/21 08:00 08/28/21 20:59 Nystatin 500,000 Unit/5 Ml Oral Liqd PO 100,000 unit TID WARD Administration Ondansetron HCl 4 mg 08/19/21 04:50 Ondansetron 4 Mg/2 Ml Inj IV Q8H PRN Nausea And Vomiting Senna 8.8 mg 08/28/21 10:00 08/28/21 23:00 Sennosides Oral Liqd 8.8 Mg/5 Ml Oral Liqd FEEDTUBE 8.8 mg BID WARD Administration Sertraline HCl 25 mg 08/19/21 10:00 08/28/21 09:13 Sertraline 25 Mg Tab FEEDTUBE 25 mg QDAY WARD Administration Sodium Chloride 10 ml 08/19/21 10:00 08/28/21 23:00 Sodium Chloride 0.9% 10 Ml Flush Syringe IV 10 ml BID WARD Administration Sodium Chloride 10 ml 08/19/21 04:50 Sodium Chloride 0.9% 10 Ml Flush Syringe IV PRN PRN LINE FLUSH Sucralfate 1 gm 08/23/21 18:00 08/29/21 06:27 Sucralfate 1 Gm Tab FEEDTUBE 1 gm Q6HR WARD Administration Thiamine HCl 100 mg 08/19/21 10:00 08/28/21 09:13 Thiamine 100 Mg Tab FEEDTUBE 100 mg QDAY WARD Administration Tramadol HCl 50 mg 08/28/21 09:00 08/29/21 03:29 Tramadol 50 Mg Tab FEEDTUBE 50 mg Q6H WARD Administration Nutrition/Malnutrition Assess - Dietary Evaluation Nutrition/Malnutrition Findings: Nutrition Notes Start: 08/19/21 10:13 Freq: Status: Active Protocol: Document 08/25/21 17:57 ABRAHAM (Rec: 08/25/21 18:22 ABRAHAM [id number]) Nutrition Notes Initial or Follow up Brief Note Current Diagnosis Hypertension,Respiratory Failure Other Pertinent Diagnosis Angioedema, Hypothyroidism, Psychosis. Current Diet TF-Glucerna 1.2 Dieudonne @ 45 ml/hr (since D 08/23). Height 4 ft 11 in Weight 74 kg [place] Body Weight (kg) 43.18 BMI 32.9 Weight change and time frame No body weight change reported in 2 days. Weight Status Obese Subjective/Other Information RD consult for routine F/U on TF tolerance. TF continues as prescribed, well tolerated, according to RN notes. Pt extubated on 08/25 am, but on low threshold for reintubation; later reintubation was necessary but Pt refused initially, later Pt gave verbal consent and was reintubated. Propofol not given. Plans to place PEG tube on . Percent of energy/protein needs met: Prescribed TF-Glucerna 1.2 Dieudonne @ 45 ml/hr provides for energy/protein needs (1,269 Kcal/65 g) during LOS, 94% Kcal; 70% AA. #1 Nutrition Diagnosis Inadequate oral intake Diagnosis Progress(for reassessment Continues documentation) Is patient on ventilator? Yes Is Patient Ambulatory and/or Out of Bed No REE-([place]-confined to bed) 1375.068 Kcal/Kg value to use for calculation 17 Approximate Energy Requirements Using 1258 kcal/Kg Calculation Used for Recommendations Kcal/kg Additional Notes Protein: 2 g/Kg IBW; 86 g/day. Fluids: 1 ml/Kcal, or as per MD. Nutrition Intervention Nutrition Support: Continue TF-Glucerna 1.2 Dieudonne @ 45 ml/hr. Flush: 70 ml water Q 4 hr, or as per MD. Kcal 1,269 Protein (gm) 65 Carbohydrates (gm) 124 Fat (gm) 65 Fluid (mL) 869 Fiber (gm) 17 % RDI: 94% Kcal; 70% AA. Goal #1 Provide at least 75% of energy /protein needs through Enteral Feeding during LOS. Goal #2 Maintain body weight within +/ -3% of admission body weight during LOS. Follow-Up By: 08/30/21 Additional Comments Continue monitoring, Ventilation status, TF tolerance and BM.
[2021-08-28] MEDS: fentaNYL 100 MCG/2 ML INJ IV PRN (19:30)
[2021-08-29] MEDS: INSULIN REGULAR, HUMAN 100 UNITS/1 ML SUB-Q SCH ×4 (00:49→19:10)
[2021-08-29] MEDS: SUCRALFATE 1 GM TAB FEEDTUBE SCH ×4 (00:50→19:35)
[2021-08-29] MEDS: traMADol 50 MG TAB FEEDTUBE SCH ×4 (03:29→22:18)
[2021-08-29 04:30] LABS: Hematocrit 32.9 % (30.3-42.9); Hemoglobin 10.7 gm/dl (10.1-14.3); Mean Corpuscular HGB Conc 33 % (30-34); Mean Corpuscular Volume 98 fl (79-97); Platelet Count 222 K/mm3 (140-440); Red Blood Count 3.35 M/mm3 (3.65-5.03)
[2021-08-29 05:03] LABS: BUN/Creatinine Ratio 24; Blood Urea Nitrogen 19 mg/dL (7-17); Calcium 9.8 mg/dL (8.4-10.2); Hemolysis Index 122
[2021-08-29] MEDS: LEVOTHYROXINE 75 MCG TAB FEEDTUBE SCH (06:30)
--- NOTE | 2021-08-29 09:20 | Progress Note ---
<DELICIA LOYA - Last Filed: 08/29/21 15:44> Assessment and Plan Assessment and plan: This is a 76-year-old female with hypertension, psychiatric illness, and hypothyroidism admitted with angioedema and intubated for airway protection Hospital Course to Date: 08/19: Patient started on tube feedings, potassium repleted, started on Benadryl and propofol for sedation. SSI started. Air leak present today however due to swelling of the tongue we will hold off extubation. CCM plans to try FFP in the a.m. if swelling not better. 08/20: Angioedema slightly better so we will hold off FFP today. Updated son at bedside but he did not know what medication she was taking and states that she has not had angioedema in the past. Patient still remains on Versed and propofol. Was given 500 mL bolus overnight for hypotension and will repeat for hypotension. 08/21: Leak test today at bedside with RT shows no leak and will give FFP today. Tongue looks a bit smaller today but given no leak, CCM will not extubate today. Sedated with propofol and versed. Son at bedside today. 08/22: RT performed leak test in the AM and stated there was a leak noted and placed the patient on CPAP. She was sedated on versed at 4 and propofol at 30 but these are off for CPAP. Will removed lewis. Received FFP yesterday. Angioedema is improved. Leak test performed again with Dr. Bailey and no leak audible. Switched back to AC and sedation restarted. 08/23: Remains on the vent and sedated. Cuff leak assessed again today by CCM, still no significant air leak noted. Per CCM keep patient intubated and sedated and continue IV steroids and histamine therapy for now. Fentanyl gtt added, plan to wean off versed for RASS goal of 0 to -1. 08/24: Arousable and appropriate on the vent and on low dose sedation. No cuff leak again today per RT. D/W CCM plan for CT neck w/o contrast for further eval. If CT neck normal, PSV trial and possible extubation tomorrow. 08/25: S/p extubation this am, audible stridor appreciated. S/p X2 doses of RaceEpi and IV solumedrol X1 dose. Patient currently stable on 4L NC, SPO2 at 9 4%. Patient is low threshold for re-intubation, case discussed with anesthesia in case of any decompensation. D/w CCM patient will need a trach if she is reintubated. Plan of care was thoroughly discussed with patient's son at the bedside by the non profit financial controller. All question and concerns were addressed at this time. 08/26: Reintubated yesterday due to stridor. General Surgery consulted, plan for possible trach and PEG today. Hypotension resolved this am most likely due to sedation for intubation, VSS today. Wean SPO2 as tolerated for SPO2 above 90%. Continue to monitor and replete electrolytes as needed. 08/27: s/p Trach and PEG overnight. Patient is stable on the vent this am, sedated on propofol and fentanyl. okay to use PEG-tube per general surgery, resume TF as ordered. PRN Analgesia added for pain control, wean off sedation as tolerated. Plan for possible PSV trial tomorrow. 08/28: Stable on the vent, still on sedation. Schedule tramadol and PRN fentanyl added for pain control, plan to wean sedation as tolerated. Possible PSV trial tomorrow if off sedation. PRN Xanax for anxiety. BR added for constipation. 08/29: Back on propofol from overnight due to increase anxiety. Patient is awake and calm this am, will D/C propofol and use PRN Xanax as needed for anxiety. Continue schedule tramadol and PRN fentanyl for pain control. Patient with increase secretion today, orally and via trach. Patient is also febrile with spike in WBCs, Chest XR ordered and will panculture. Hold off IV abx for now. Will also remove lewis catheter, straight/cath and bladder scan per protocol. Assessment and Plan Neuro:h/o depression -Restart home thiamine, multivitamin, Zoloft, BuSpar and as needed Xanax -Remains on sedation this am -Schedule tramadol and PRN fentynal added for pain control -Plan to wean off sedation -Avoid delirium -Reorientation as needed -Maintain sleep-wake cycle Cardiac:Hypertension -BP stable -resume home antihypertensive regimen when available and if needed -Continue blood pressure monitor per protocol -Hydralazine as needed for SBP above 160 Respiratory: Acute hypoxic respiratory failure 2/2 angioedema -Intubated in the emergency department on 08/19 for airway protection -[facility] consulted, appreciate recommendations -08/25 extubation and reintubated due to stridor -/ s/p Trach and PEG-tube by general surgery -Vent setting:PRVC-35%,6,20,450 -CT neck noted- large thyroid goiter and macroglossia reported, see report for full detail -CCM consulted, appreciate recommendations -VAP bundle addressed -Aspiration precaution HOB above 30 -Daily SBT and SAT trials as tolerated -PRN ABG and CXR per CCM -Continue SPO2 monitoring for SPO2 goal above 92% GI:TF -5/12 s/p Trach and PEG -Continue enteral nutrition -Nutrition on consult -BR added Urinary Retention -Lewis reinserted due to urinary retention -Remove lewis cath -Straight cath/bladder scan per protocol Endo: Hyperglycemia h/o hypothyroidism -Continue Q6hrs accucheck with SSI -Avoid hypoglycemia -While critically ill target blood glucose of 140-180 -continue synthroid GI/DVT Prophylaxis -PPI- Pepcid -Heparin SubQ -SCDs to bilateral lower extremities while in bed The high probability of a clinically significant, sudden or life threatening deterioration of the [Neuro, Resp] system(s) required my full and direct attention, intervention and personal management. The aggregate critical care time was [60] minutes. This time is in addition to time spent performing reported procedures but includes the following: [x] Data Review and interpretation [x] Patient assessment and monitoring of vital signs [x] Documentation [x] Medication orders and management Disposition Plan: ICU Total Time Spent with Patient (Minutes): 60 History Interval history: Patient seen and examined at the bedside. Trach and stable on the vent. Was put back on propofol overnight due to increase anxiety. RN also reported copious am ount of secretion orally and via trach. Patient is also febrile this am, BP is marginal but stable, SR HR in the 80s this am. Hospitalist Physical - Physical exam Narrative exam: General appearance: Present: no acute distress, well-nourished, obese, other (Trach and sedated) - EENT Eyes: Present: PERRL - Neck Neck: Present: normal ROM - Respiratory Respiratory effort: normal Respiratory: bilateral: diminished - Cardiovascular Rhythm: regular Heart Sounds: Present: S1 & S2 - Extremities Extremities: no ischemia, pulses intact, pulses symmetrical Extremity abnormal: edema - Peripheral Assessment Generalized Edema Type: Non-pitting Edema Degree: 1+ Capillary Refill: < 3 seconds Skin Temperature: Warm Peripheral Pulses: within normal limits - Abdominal General gastrointestinal: soft, non-distended, normal bowel sounds - Integumentary Integumentary: Present: warm, dry - Psychiatric Psychiatric: other (trach and sedated) - Neurologic Neurologic: moves all extremities, other (trach and sedated) - Allied Health Allied health notes reviewed: nursing, case management - Constitutional Vitals: Temp Pulse Resp BP Pulse Ox 100 F H 96 H 22 111/71 99 08/29/21 08:08 08/29/21 08:27 08/29/21 08:00 08/29/21 08:27 08/29/21 08:40 Results - Labs CBC & Chem 7: 08/29/21 04:12 08/29/21 04:12 Labs: Laboratory Last Values WBC 22.7 K/mm3 (4.5-11.0) H 08/29/21 04:12 RBC 3.35 M/mm3 (3.65-5.03) L 08/29/21 04:12 Hgb 10.7 gm/dl (10.1-14.3) 08/29/21 04:12 Hct 32.9 % (30.3-42.9) 08/29/21 04:12 MCV 98 fl (79-97) H 08/29/21 04:12 MCH 32 pg (28-32) 08/29/21 04:12 MCHC 33 % (30-34) 08/29/21 04:12 RDW 16.0 % (13.2-15.2) H 08/29/21 04:12 Plt Count 222 K/mm3 (140-440) 08/29/21 04:12 Lymph # (Auto) Belt Measurer 08/19/21 02:24 Add Manual Diff Complete 08/20/21 04:25 Total Counted 100 08/20/21 04:25 Seg Neuts % (Manual) 83.0 % (40.0-70.0) H 08/20/21 04:25 Band Neutrophils % 0 % 08/20/21 04:25 Lymphocytes % (Manual) 14.0 % (13.4-35.0) 08/20/21 04:25 Reactive Lymphs % (Man) 0 % 08/20/21 04:25 Monocytes % (Manual) 3.0 % (0.0-7.3) 08/20/21 04:25 Eosinophils % (Manual) 0 % (0.0-4.3) 08/20/21 04:25 Basophils % (Manual) 0 % (0.0-1.8) 08/20/21 04:25 Metamyelocytes % 0 % 08/20/21 04:25 Myelocytes % 0 % 08/20/21 04:25 Promyelocytes % 0 % 08/20/21 04:25 Blast Cells % 0 % 08/20/21 04:25 Nucleated RBC % Not Reportable 08/20/21 04:25 Seg Neutrophils # Man 7.5 K/mm3 (1.8-7.7) 08/20/21 04:25 Band Neutrophils # 0.0 K/mm3 08/20/21 04:25 Lymphocytes # (Manual) 1.3 K/mm3 (1.2-5.4) 08/20/21 04:25 Abs React Lymphs (Man) 0.0 K/mm3 08/20/21 04:25 Monocytes # (Manual) 0.3 K/mm3 (0.0-0.8) 08/20/21 04:25 Eosinophils # (Manual) 0.0 K/mm3 (0.0-0.4) 08/20/21 04:25 Basophils # (Manual) 0.0 K/mm3 (0.0-0.1) 08/20/21 04:25 Metamyelocytes # 0.0 K/mm3 08/20/21 04:25 Myelocytes # 0.0 K/mm3 08/20/21 04:25 Promyelocytes # 0.0 K/mm3 08/20/21 04:25 Blast Cells # 0.0 K/mm3 08/20/21 04:25 WBC Morphology Not Reportable 08/20/21 04:25 Hypersegmented Neuts Not Reportable 08/20/21 04:25 Hyposegmented Neuts Not Reportable 08/20/21 04:25 Hypogranular Neuts Not Reportable 08/20/21 04:25 Smudge Cells Not Reportable 08/20/21 04:25 Toxic Granulation Not Reportable 08/20/21 04:25 Toxic Vacuolation Not Reportable 08/20/21 04:25 Dohle Bodies Not Reportable 08/20/21 04:25 Pelger-Huet Anomaly Not Reportable 08/20/21 04:25 Erik Rods Not Reportable 08/20/21 04:25 Platelet Estimate Consistent w auto 08/20/21 04:25 Clumped Platelets Not Reportable 08/20/21 04:25 Plt Clumps, EDTA Not Reportable 08/20/21 04:25 Large Platelets Rare 08/20/21 04:25 Giant Platelets Not Reportable 08/20/21 04:25 Platelet Satelliting Not Reportable 08/20/21 04:25 Plt Morphology Comment Not Reportable 08/20/21 04:25 RBC Morphology Not Reportable 08/20/21 04:25 Dimorphic RBCs Not Reportable 08/20/21 04:25 Polychromasia Not Reportable 08/20/21 04:25 Hypochromasia Not Reportable 08/20/21 04:25 Poikilocytosis Rare 08/20/21 04:25 Anisocytosis Rare 08/20/21 04:25 Microcytosis Not Reportable 08/20/21 04:25 Macrocytosis Not Reportable 08/20/21 04:25 Spherocytes Not Reportable 08/20/21 04:25 Pappenheimer Bodies Not Reportable 08/20/21 04:25 Sickle Cells Not Reportable 08/20/21 04:25 Target Cells Not Reportable 08/20/21 04:25 Tear Drop Cells Not Reportable 08/20/21 04:25 Ovalocytes Rare 08/20/21 04:25 Helmet Cells Not Reportable 08/20/21 04:25 Rai-[place] Bodies Not Reportable 08/20/21 04:25 Pitman Rings Not Reportable 08/20/21 04:25 Caprice Cells Not Reportable 08/20/21 04:25 Bite Cells Not Reportable 08/20/21 04:25 Crenated Cell Not Reportable 08/20/21 04:25 Elliptocytes Not Reportable 08/20/21 04:25 Acanthocytes (Spur) Not Reportable 08/20/21 04:25 Rouleaux Not Reportable 08/20/21 04:25 Hemoglobin C Crystals Not Reportable 08/20/21 04:25 Schistocytes Not Reportable 08/20/21 04:25 Malaria parasites Not Reportable 08/20/21 04:25 Marco Bodies Not Reportable 08/20/21 04:25 Hem Pathologist Commnt No 08/20/21 04:25 PT 12.8 Sec. (12.2-14.9) 08/19/21 02:24 INR 0.87 (0.87-1.13) 08/19/21 02:24 APTT 20.0 Sec. (24.2-36.6) L 08/19/21 02:24 ABG pH 7.516 pH Units (7.350-7.450) H 08/27/21 03:56 POC ABG pCO2 30.1 mmHg (32.0-48.0) L 08/22/21 10:16 ABG pCO2 34.4 mm Hg 08/27/21 03:56 POC ABG pO2 109.5 mmHg (83-108) H 08/22/21 10:16 ABG pO2 117.0 mm Hg (80.0-90.0) H 08/27/21 03:56 POC ABG HCO3 23.5 08/22/21 10:16 ABG HCO3 27.2 mmol/L (20.0-26.0) H 08/27/21 03:56 ABG O2 Saturation 98.4 % (95.0-99.0) 08/27/21 03:56 ABG O2 Content 15.3 (0.0-44) 08/27/21 03:56 POC ABG Base Excess 1.2 08/22/21 10:16 ABG Base Excess 4.3 mmol/L (-2.0-3.0) H 08/27/21 03:56 ABG Hemoglobin 11.1 gm/dl (12.0-16.0) L 08/27/21 03:56 ABG Oxyhemoglobin 96.8 (94-98) 08/22/21 10:16 ABG Carboxyhemoglobin 1.0 % (0.0-5.0) 08/27/21 03:56 ABG Methemoglobin 0.5 % (0.0-1.5) 08/27/21 03:56 ABG Sodium Not Reportable 08/22/21 10:16 ABG Potassium Not Reportable 08/22/21 10:16 ABG Chloride Not Reportable 08/22/21 10:16 ABG Glucose Not Reportable 08/22/21 10:16 Oxyhemoglobin 96.9 % (95.0-99.0) 08/27/21 03:56 Carboxyhemoglobin 1.1 (0.5-1.5) 08/22/21 10:16 FiO2 40 % 08/27/21 03:56 FiO2 % 30.0 08/22/21 10:16 Sodium 137 mmol/L (137-145) D 08/29/21 04:12 Potassium 4.0 mmol/L (3.6-5.0) 08/29/21 04:12 Chloride 103.9 mmol/L (98-107) 08/29/21 04:12 Carbon Dioxide 22 mmol/L (22-30) 08/29/21 04:12 Anion Gap 15 mmol/L 08/29/21 04:12 BUN 19 mg/dL (7-17) H 08/29/21 04:12 Creatinine 0.8 mg/dL (0.6-1.2) 08/29/21 04:12 Estimated GFR > 60 ml/min 08/29/21 04:12 BUN/Creatinine Ratio 24 % 08/29/21 04:12 Glucose 121 mg/dL (65-100) H 08/29/21 04:12 POC Glucose 117 mg/dL (70-105) H 08/29/21 06:17 Calcium 9.8 mg/dL (8.4-10.2) 08/29/21 04:12 Phosphorus 3.50 mg/dL (2.5-4.5) 08/29/21 04:12 Magnesium 2.20 mg/dL (1.7-2.3) 08/29/21 04:12 Total Bilirubin 0.40 mg/dL (0.1-1.2) 08/20/21 04:25 AST 23 units/L (5-40) 08/20/21 04:25 ALT 13 units/L (7-56) 08/20/21 04:25 Alkaline Phosphatase 94 units/L (35-129) 08/20/21 04:25 Total Protein 7.3 g/dL (6.3-8.2) 08/20/21 04:25 Albumin 4.0 g/dL (3.9-5) 08/20/21 04:25 Albumin/Globulin Ratio 1.2 % 08/20/21 04:25 Triglycerides 200 mg/dL (2-149) H 08/27/21 04:25 Arterial Blood Glucose Not Reportable 08/22/21 10:16 Blood Type A POSITIVE 08/21/21 15:10 Lewis/IV: Voiding Method Indwelling Catheter Active Medications - Current Medications Current Medications: Generic Name Dose Route Start Last Admin Trade Name Freq PRN Reason Stop Dose Admin Acetaminophen 650 mg 08/19/21 06:00 08/27/21 11:55 Acetaminophen 325 Mg Tab FEEDTUBE 650 mg Q4H PRN Administration Pain MILD(1-3)/Fever >100.5/SAEED Albuterol 2.5 mg 08/19/21 04:50 Albuterol 2.5 Mg/3 Ml Nebu IH Q3HRT PRN Shortness Of Breath Alprazolam 0.25 mg 08/19/21 06:00 Alprazolam 0.25 Mg Tab FEEDTUBE BID PRN Anxiety Atorvastatin Calcium 10 mg 08/23/21 22:00 08/28/21 23:00 Atorvastatin 10 Mg Tab FEEDTUBE 10 mg QHS WARD Administration Buspirone HCl 10 mg 08/19/21 10:00 08/28/21 23:00 Buspirone 10 Mg Tab FEEDTUBE 10 mg BID WARD Administration Dextrose 50 ml 08/20/21 10:00 Dextrose 50% In Water (25gm) 50 Ml Syringe IV Q30MIN PRN Hypoglycemia Protocol Docusate Sodium 100 mg 08/28/21 10:00 08/28/21 23:00 Docusate Sodium 100 Mg/10 Ml Oral Liqd PO 100 mg BID WARD Administration Famotidine 20 mg 08/27/21 22:00 08/28/21 23:00 Famotidine 20 Mg Tab FEEDTUBE 20 mg BID WARD Administration Fentanyl 50 mcg 08/28/21 09:37 08/28/21 19:30 Fentanyl 100 Mcg/2 Ml Inj IV 50 mcg Q2H PRN Administration Pain , Severe (7-10) Folic Acid 1 mg 08/19/21 10:00 08/28/21 09:13 Folic Acid 1 Mg Tab FEEDTUBE 1 mg QDAY WARD Administration Heparin Sodium (Porcine) 5,000 unit 08/19/21 10:00 08/28/21 23:00 Heparin 5,000 Unit/1 Ml Vial SUB-Q 5,000 unit Q12HR WARD Administration Hydralazine HCl 10 mg 08/19/21 05:03 08/24/21 18:09 Hydralazine 20 Mg/1 Ml Inj IV 10 mg Q6H PRN Administration SBP >/=160; DBP >/=100 Fentanyl Citrate 2,000 mcg in 100 mls @ 2.125 mls/hr 08/23/21 12:00 08/28/21 20:37 Fentanyl Drip Premix IV 0 mcg/kg/hr TITR WARD 0 mls/hr Titration Protocol 1 MCG/KG/HR NORepinephrine/NS 8 MG-250 ML 8 mg in 250 mls @ 3.75 mls/hr 08/25/21 15:00 08/25/21 14:30 Norepinephrine/Ns 8 Mg-250 Ml (Double Conc) IV 2 mcg/min TITRATE WARD 3.75 mls/hr Administration Protocol 2 MCG/MIN Insulin Human Regular 0 units 08/20/21 12:00 08/29/21 06:27 Insulin Regular, Human 100 Units/1 Ml SUB-Q Not Given Q6H WARD Protocol Levothyroxine Sodium 150 mcg 08/19/21 06:00 08/29/21 06:30 Levothyroxine 75 Mcg Tab FEEDTUBE 150 mcg DAILY@0600 WARD Administration Nystatin 100,000 unit 08/28/21 08:00 08/28/21 20:59 Nystatin 500,000 Unit/5 Ml Oral Liqd PO 100,000 unit TID WARD Administration Ondansetron HCl 4 mg 08/19/21 04:50 Ondansetron 4 Mg/2 Ml Inj IV Q8H PRN Nausea And Vomiting Senna 8.8 mg 08/28/21 10:00 08/28/21 23:00 Sennosides Oral Liqd 8.8 Mg/5 Ml Oral Liqd FEEDTUBE 8.8 mg BID WARD Administration Sertraline HCl 25 mg 08/19/21 10:00 08/28/21 09:13 Sertraline 25 Mg Tab FEEDTUBE 25 mg QDAY WARD Administration Sodium Chloride 10 ml 08/19/21 10:00 08/28/21 23:00 Sodium Chloride 0.9% 10 Ml Flush Syringe IV 10 ml BID WARD Administration Sodium Chloride 10 ml 08/19/21 04:50 Sodium Chloride 0.9% 10 Ml Flush Syringe IV PRN PRN LINE FLUSH Sucralfate 1 gm 08/23/21 18:00 08/29/21 06:27 Sucralfate 1 Gm Tab FEEDTUBE 1 gm Q6HR WARD Administration Thiamine HCl 100 mg 08/19/21 10:00 08/28/21 09:13 Thiamine 100 Mg Tab FEEDTUBE 100 mg QDAY WARD Administration Tramadol HCl 50 mg 08/28/21 09:00 08/29/21 03:29 Tramadol 50 Mg Tab FEEDTUBE 50 mg Q6H WARD Administration Nutrition/Malnutrition Assess - Dietary Evaluation Nutrition/Malnutrition Findings: Nutrition Notes Start: 08/19/21 10:13 Freq: Status: Active Protocol: Document 08/25/21 17:57 ABRAHAM (Rec: 08/25/21 18:22 ABRAHAM [id number]) Nutrition Notes Initial or Follow up Brief Note Current Diagnosis Hypertension,Respiratory Failure Other Pertinent Diagnosis Angioedema, Hypothyroidism, Psychosis. Current Diet TF-Glucerna 1.2 Dieudonne @ 45 ml/hr (since D 08/23). Height 4 ft 11 in Weight 74 kg [place] Body Weight (kg) 43.18 BMI 32.9 Weight change and time frame No body weight change reported in 2 days. Weight Status Obese Subjective/Other Information RD consult for routine F/U on TF tolerance. TF continues as prescribed, well tolerated, according to RN notes. Pt extubated on 08/25 am, but on low threshold for reintubation; later reintubation was necessary but Pt refused initially, later Pt gave verbal consent and was reintubated. Propofol not given. Plans to place PEG tube on . Percent of energy/protein needs met: Prescribed TF-Glucerna 1.2 Dieudonne @ 45 ml/hr provides for energy/protein needs (1,269 Kcal/65 g) during LOS, 94% Kcal; 70% AA. #1 Nutrition Diagnosis Inadequate oral intake Diagnosis Progress(for reassessment Continues documentation) Is patient on ventilator? Yes Is Patient Ambulatory and/or Out of Bed No REE-([facility]-confined to bed) 1375.068 Kcal/Kg value to use for calculation 17 Approximate Energy Requirements Using 1258 kcal/Kg Calculation Used for Recommendations Kcal/kg Additional Notes Protein: 2 g/Kg IBW; 86 g/day. Fluids: 1 ml/Kcal, or as per MD. Nutrition Intervention Nutrition Support: Continue TF-Glucerna 1.2 Dieudonne @ 45 ml/hr. Flush: 70 ml water Q 4 hr, or as per MD. Kcal 1,269 Protein (gm) 65 Carbohydrates (gm) 124 Fat (gm) 65 Fluid (mL) 869 Fiber (gm) 17 % RDI: 94% Kcal; 70% AA. Goal #1 Provide at least 75% of energy /protein needs through Enteral Feeding during LOS. Goal #2 Maintain body weight within +/ -3% of admission body weight during LOS. Follow-Up By: 08/30/21 Additional Comments Continue monitoring, Ventilation status, TF tolerance and BM. <CATRINA MONDRAGON - Last Filed: 08/30/21 07:11> Assessment and Plan Assessment and plan: I saw and evaluated the patient. I agree with the findings and the plan of care as documented in the Nurse Practitioner's~note, with the following corrections and additions. Hospitalist Physical - Constitutional Vitals: Temp Pulse Resp BP Pulse Ox 98 F 71 20 102/61 99 08/30/21 04:00 08/30/21 06:00 08/30/21 06:00 08/30/21 06:00 08/30/21 06:00 Results - Labs CBC & Chem 7: 08/30/21 03:22 08/30/21 03:22 Labs: Laboratory Last Values WBC 20.3 K/mm3 (4.5-11.0) H 08/30/21 03:22 RBC 3.29 M/mm3 (3.65-5.03) L 08/30/21 03:22 Hgb 10.6 gm/dl (10.1-14.3) 08/30/21 03:22 Hct 32.1 % (30.3-42.9) 08/30/21 03:22 MCV 97 fl (79-97) 08/30/21 03:22 MCH 32 pg (28-32) 08/30/21 03:22 MCHC 33 % (30-34) 08/30/21 03:22 RDW 15.6 % (13.2-15.2) H 08/30/21 03:22 Plt Count 218 K/mm3 (140-440) 08/30/21 03:22 Lymph # (Auto) Belt Measurer 08/19/21 02:24 Add Manual Diff Complete 08/30/21 03:22 Total Counted 100 08/30/21 03:22 Seg Neuts % (Manual) 87.0 % (40.0-70.0) H 08/30/21 03:22 Band Neutrophils % 0 % 08/30/21 03:22 Lymphocytes % (Manual) 10.0 % (13.4-35.0) L 08/30/21 03:22 Reactive Lymphs % (Man) 0 % 08/30/21 03:22 Monocytes % (Manual) 3.0 % (0.0-7.3) 08/30/21 03:22 Eosinophils % (Manual) 0 % (0.0-4.3) 08/30/21 03:22 Basophils % (Manual) 0 % (0.0-1.8) 08/30/21 03:22 Metamyelocytes % 0 % 08/30/21 03:22 Myelocytes % 0 % 08/30/21 03:22 Promyelocytes % 0 % 08/30/21 03:22 Blast Cells % 0 % 08/30/21 03:22 Nucleated RBC % Not Reportable 08/30/21 03:22 Seg Neutrophils # Man 17.7 K/mm3 (1.8-7.7) H 08/30/21 03:22 Band Neutrophils # 0.0 K/mm3 08/30/21 03:22 Lymphocytes # (Manual) 2.0 K/mm3 (1.2-5.4) 08/30/21 03:22 Abs React Lymphs (Man) 0.0 K/mm3 08/30/21 03:22 Monocytes # (Manual) 0.6 K/mm3 (0.0-0.8) 08/30/21 03:22 Eosinophils # (Manual) 0.0 K/mm3 (0.0-0.4) 08/30/21 03:22 Basophils # (Manual) 0.0 K/mm3 (0.0-0.1) 08/30/21 03:22 Metamyelocytes # 0.0 K/mm3 08/30/21 03:22 Myelocytes # 0.0 K/mm3 08/30/21 03:22 Promyelocytes # 0.0 K/mm3 08/30/21 03:22 Blast Cells # 0.0 K/mm3 08/30/21 03:22 WBC Morphology Not Reportable 08/30/21 03:22 Hypersegmented Neuts Not Reportable 08/30/21 03:22 Hyposegmented Neuts Not Reportable 08/30/21 03:22 Hypogranular Neuts Not Reportable 08/30/21 03:22 Smudge Cells Not Reportable 08/30/21 03:22 Toxic Granulation Not Reportable 08/30/21 03:22 Toxic Vacuolation Not Reportable 08/30/21 03:22 Dohle Bodies Not Reportable 08/30/21 03:22 Pelger-Huet Anomaly Not Reportable 08/30/21 03:22 Erik Rods Not Reportable 08/30/21 03:22 Platelet Estimate Consistent w auto 08/30/21 03:22 Clumped Platelets Not Reportable 08/30/21 03:22 Plt Clumps, EDTA Not Reportable 08/30/21 03:22 Large Platelets Not Reportable 08/30/21 03:22 Giant Platelets Not Reportable 08/30/21 03:22 Platelet Satelliting Not Reportable 08/30/21 03:22 Plt Morphology Comment Not Reportable 08/30/21 03:22 RBC Morphology Normal 08/30/21 03:22 Dimorphic RBCs Not Reportable 08/30/21 03:22 Polychromasia Not Reportable 08/30/21 03:22 Hypochromasia Not Reportable 08/30/21 03:22 Poikilocytosis Not Reportable 08/30/21 03:22 Anisocytosis Not Reportable 08/30/21 03:22 Microcytosis Not Reportable 08/30/21 03:22 Macrocytosis Not Reportable 08/30/21 03:22 Spherocytes Not Reportable 08/30/21 03:22 Pappenheimer Bodies Not Reportable 08/30/21 03:22 Sickle Cells Not Reportable 08/30/21 03:22 Target Cells Not Reportable 08/30/21 03:22 Tear Drop Cells Not Reportable 08/30/21 03:22 Ovalocytes Not Reportable 08/30/21 03:22 Helmet Cells Not Reportable 08/30/21 03:22 Rai-[place]ains[place] Bodies Not Reportable 08/30/21 03:22 Pitman Rings Not Reportable 08/30/21 03:22 [place] Cells Not Reportable 08/30/21 03:22 Bite Cells Not Reportable 08/30/21 03:22 Crenated Cell Not Reportable 08/30/21 03:22 Elliptocytes Not Reportable 08/30/21 03:22 Acanthocytes (Spur) Not Reportable 08/30/21 03:22 Rouleaux Not Reportable 08/30/21 03:22 Hemoglobin C Crystals Not Reportable 08/30/21 03:22 Schistocytes Not Reportable 08/30/21 03:22 Malaria parasites Not Reportable 08/30/21 03:22 Marco Bodies Not Reportable 08/30/21 03:22 Hem Pathologist Commnt No 08/30/21 03:22 PT 12.8 Sec. (12.2-14.9) 08/19/21 02:24 INR 0.87 (0.87-1.13) 08/19/21 02:24 APTT 20.0 Sec. (24.2-36.6) L 08/19/21 02:24 ABG pH 7.516 pH Units (7.350-7.450) H 08/27/21 03:56 POC ABG pCO2 30.1 mmHg (32.0-48.0) L 08/22/21 10:16 ABG pCO2 34.4 mm Hg 08/27/21 03:56 POC ABG pO2 109.5 mmHg (83-108) H 08/22/21 10:16 ABG pO2 117.0 mm Hg (80.0-90.0) H 08/27/21 03:56 POC ABG HCO3 23.5 08/22/21 10:16 ABG HCO3 27.2 mmol/L (20.0-26.0) H 08/27/21 03:56 ABG O2 Saturation 98.4 % (95.0-99.0) 08/27/21 03:56 ABG O2 Content 15.3 (0.0-44) 08/27/21 03:56 POC ABG Base Excess 1.2 08/22/21 10:16 ABG Base Excess 4.3 mmol/L (-2.0-3.0) H 08/27/21 03:56 ABG Hemoglobin 11.1 gm/dl (12.0-16.0) L 08/27/21 03:56 ABG Oxyhemoglobin 96.8 (94-98) 08/22/21 10:16 ABG Carboxyhemoglobin 1.0 % (0.0-5.0) 08/27/21 03:56 ABG Methemoglobin 0.5 % (0.0-1.5) 08/27/21 03:56 ABG Sodium Not Reportable 08/22/21 10:16 ABG Potassium Not Reportable 08/22/21 10:16 ABG Chloride Not Reportable 08/22/21 10:16 ABG Glucose Not Reportable 08/22/21 10:16 Oxyhemoglobin 96.9 % (95.0-99.0) 08/27/21 03:56 Carboxyhemoglobin 1.1 (0.5-1.5) 08/22/21 10:16 FiO2 40 % 08/27/21 03:56 FiO2 % 30.0 08/22/21 10:16 Sodium 138 mmol/L (137-145) 08/30/21 03:22 Potassium 3.7 mmol/L (3.6-5.0) 08/30/21 03:22 Chloride 103.5 mmol/L (98-107) 08/30/21 03:22 Carbon Dioxide 23 mmol/L (22-30) 08/30/21 03:22 Anion Gap 15 mmol/L 08/30/21 03:22 BUN 21 mg/dL (7-17) H 08/30/21 03:22 Creatinine 0.8 mg/dL (0.6-1.2) 08/30/21 03:22 Estimated GFR > 60 ml/min 08/30/21 03:22 BUN/Creatinine Ratio 26 % 08/30/21 03:22 Glucose 129 mg/dL (65-100) H 08/30/21 03:22 POC Glucose 115 mg/dL (70-105) H 08/30/21 00:17 Calcium 10.0 mg/dL (8.4-10.2) 08/30/21 03:22 Phosphorus 3.50 mg/dL (2.5-4.5) 08/29/21 04:12 Magnesium 2.20 mg/dL (1.7-2.3) 08/29/21 04:12 Total Bilirubin 0.40 mg/dL (0.1-1.2) 08/20/21 04:25 AST 23 units/L (5-40) 08/20/21 04:25 ALT 13 units/L (7-56) 08/20/21 04:25 Alkaline Phosphatase 94 units/L (35-129) 08/20/21 04:25 Total Protein 7.3 g/dL (6.3-8.2) 08/20/21 04:25 Albumin 4.0 g/dL (3.9-5) 08/20/21 04:25 Albumin/Globulin Ratio 1.2 % 08/20/21 04:25 Triglycerides 200 mg/dL (2-149) H 08/27/21 04:25 Arterial Blood Glucose Not Reportable 08/22/21 10:16 Blood Type A POSITIVE 08/21/21 15:10 Microbiology: Microbiology 08/29/21 09:45 Peripheral/Venous Blood Culture - Preliminary Culture in Progress 08/29/21 09:45 Peripheral/Venous Blood Culture - Preliminary Culture in Progress Lewis/IV: Voiding Method External Female Catheter Active Medications - Current Medications Current Medications: Generic Name Dose Route Start Last Admin Trade Name Freq PRN Reason Stop Dose Admin Acetaminophen 650 mg 08/19/21 06:00 08/27/21 11:55 Acetaminophen 325 Mg Tab FEEDTUBE 650 mg Q4H PRN Administration Pain MILD(1-3)/Fever >100.5/SAEED Albuterol 2.5 mg 08/19/21 04:50 Albuterol 2.5 Mg/3 Ml Nebu IH Q3HRT PRN Shortness Of Breath Alprazolam 0.25 mg 08/19/21 06:00 08/29/21 22:34 Alprazolam 0.25 Mg Tab FEEDTUBE 0.25 mg BID PRN Administration Anxiety Atorvastatin Calcium 10 mg 08/23/21 22:00 08/29/21 22:18 Atorvastatin 10 Mg Tab FEEDTUBE 10 mg QHS WARD Administration Buspirone HCl 10 mg 08/19/21 10:00 08/29/21 22:19 Buspirone 10 Mg Tab FEEDTUBE 10 mg BID WARD Administration Dextrose 50 ml 08/20/21 10:00 Dextrose 50% In Water (25gm) 50 Ml Syringe IV Q30MIN PRN Hypoglycemia Protocol Docusate Sodium 100 mg 08/28/21 10:00 08/29/21 22:19 Docusate Sodium 100 Mg/10 Ml Oral Liqd PO 100 mg BID WARD Administration Famotidine 20 mg 08/27/21 22:00 08/29/21 22:19 Famotidine 20 Mg Tab FEEDTUBE 20 mg BID WARD Administration Fentanyl 50 mcg 08/28/21 09:37 08/29/21 17:20 Fentanyl 100 Mcg/2 Ml Inj IV 50 mcg Q2H PRN Administration Pain, Mild (1-3) Folic Acid 1 mg 08/19/21 10:00 08/29/21 09:43 Folic Acid 1 Mg Tab FEEDTUBE 1 mg QDAY WARD Administration Haloperidol Lactate 5 mg 08/29/21 09:58 Haloperidol Lactate 5 Mg/1 Ml Inj IV Q6H PRN Agitation Heparin Sodium (Porcine) 5,000 unit 08/19/21 10:00 08/29/21 22:19 Heparin 5,000 Unit/1 Ml Vial SUB-Q 5,000 unit Q12HR WARD Administration Hydralazine HCl 10 mg 08/19/21 05:03 08/24/21 18:09 Hydralazine 20 Mg/1 Ml Inj IV 10 mg Q6H PRN Administration SBP >/=160; DBP >/=100 NORepinephrine/NS 8 MG-250 ML 8 mg in 250 mls @ 3.75 mls/hr 08/25/21 15:00 08/25/21 14:30 Norepinephrine/Ns 8 Mg-250 Ml (Double Conc) IV 2 mcg/min TITRATE WARD 3.75 mls/hr Administration Protocol 2 MCG/MIN Insulin Human Regular 0 units 08/20/21 12:00 08/30/21 05:26 Insulin Regular, Human 100 Units/1 Ml SUB-Q Not Given Q6H [facility] Protocol Levothyroxine Sodium 150 mcg 08/30/21 06:00 08/30/21 06:05 Levothyroxine 75 Mcg Tab FEEDTUBE 150 mcg DAILY@0600 [facility] Administration Nystatin 100,000 unit 08/28/21 08:00 08/29/21 19:52 Nystatin 500,000 Unit/5 Ml Oral Liqd PO 100,000 unit TID WARD Administration Ondansetron HCl 4 mg 08/19/21 04:50 Ondansetron 4 Mg/2 Ml Inj IV Q8H PRN Nausea And Vomiting Polyethylene Glycol 17 gm 08/30/21 10:00 Polyethylene Glycol 3350 17 Gm Powder PO QDAY WARD Senna 17.6 mg 08/29/21 22:00 08/29/21 22:19 Sennosides Oral Liqd 8.8 Mg/5 Ml Oral Liqd PO 17.6 mg Q12HR WARD Administration Sertraline HCl 25 mg 08/19/21 10:00 08/29/21 09:52 Sertraline 25 Mg Tab FEEDTUBE 25 mg QDAY WARD Administration Sodium Chloride 10 ml 08/19/21 10:00 08/29/21 22:19 Sodium Chloride 0.9% 10 Ml Flush Syringe IV 10 ml BID WARD Administration Sodium Chloride 10 ml 08/19/21 04:50 Sodium Chloride 0.9% 10 Ml Flush Syringe IV PRN PRN LINE FLUSH Sucralfate 1 gm 08/23/21 18:00 08/30/21 06:05 Sucralfate 1 Gm Tab FEEDTUBE 1 gm Q6HR WARD Administration Thiamine HCl 100 mg 08/19/21 10:00 08/29/21 09:43 Thiamine 100 Mg Tab FEEDTUBE 100 mg QDAY WARD Administration Tramadol HCl 50 mg 08/28/21 09:00 08/30/21 03:06 Tramadol 50 Mg Tab FEEDTUBE 50 mg Q6H WARD Administration Nutrition/Malnutrition Assess - Dietary Evaluation Nutrition/Malnutrition Findings: Nutrition Notes Start: 08/19/21 10:13 Freq: Status: Active Protocol: Document 08/25/21 17:57 ABRAHAM (Rec: 08/25/21 18:22 ABRAHAM [id number]) Nutrition Notes Initial or Follow up Brief Note Current Diagnosis Hypertension,Respiratory Failure Other Pertinent Diagnosis Angioedema, Hypothyroidism, Psychosis. Current Diet TF-Glucerna 1.2 Dieudonne @ 45 ml/hr (since D 08/23). Height 4 ft 11 in Weight 74 kg [place] Body Weight (kg) 43.18 BMI 32.9 Weight change and time frame No body weight change reported in 2 days. Weight Status Obese Subjective/Other Information RD consult for routine F/U on TF tolerance. TF continues as prescribed, well tolerated, according to RN notes. Pt extubated on 08/25 am, but on low threshold for reintubation; later reintubation was necessary but Pt refused initially, later Pt gave verbal consent and was reintubated. Propofol not given. Plans to place PEG tube on . Percent of energy/protein needs met: Prescribed TF-Glucerna 1.2 Dieudonne @ 45 ml/hr provides for energy/protein needs (1,269 Kcal/65 g) during LOS, 94% Kcal; 70% AA. #1 Nutrition Diagnosis Inadequate oral intake Diagnosis Progress(for reassessment Continues documentation) Is patient on ventilator? Yes Is Patient Ambulatory and/or Out of Bed No REE-(Goodman-St. Jeor-confined to bed) 1375.068 Kcal/Kg value to use for calculation 17 Approximate Energy Requirements Using 1258 kcal/Kg Calculation Used for Recommendations Kcal/kg Additional Notes Protein: 2 g/Kg IBW; 86 g/day. Fluids: 1 ml/Kcal, or as per MD. Nutrition Intervention Nutrition Support: Continue TF-Glucerna 1.2 Dieudonne @ 45 ml/hr. Flush: 70 ml water Q 4 hr, or as per MD. Kcal 1,269 Protein (gm) 65 Carbohydrates (gm) 124 Fat (gm) 65 Fluid (mL) 869 Fiber (gm) 17 % RDI: 94% Kcal; 70% AA. Goal #1 Provide at least 75% of energy /protein needs through Enteral Feeding during LOS. Goal #2 Maintain body weight within +/ -3% of admission body weight during LOS. Follow-Up By: 08/30/21 Additional Comments Continue monitoring, Ventilation status, TF tolerance and BM.
[2021-08-29] MEDS ORDERED: SCOPOLAMINE TRANSDERMAL PATCH 72 HR TD SCH (09:21)
[2021-08-29] MEDS: MULTIVITAMIN / MINERAL ORAL LIQUID 15 ML FEEDTUBE SCH (09:43)
[2021-08-29] MEDS: FAMOTIDINE 20 MG TAB FEEDTUBE SCH ×2 (09:43→22:19)
[2021-08-29] MEDS: DOCUSATE SODIUM 100 MG/10 ML ORAL LIQD PO SCH ×2 (09:43→22:19)
[2021-08-29] MEDS: SENNOSIDES ORAL LIQD 8.8 MG/5 ML ORAL LIQD FEEDTUBE SCH (09:43)
[2021-08-29] MEDS: THIAMINE 100 MG TAB FEEDTUBE SCH (09:43)
[2021-08-29] MEDS: FOLIC ACID 1 MG TAB FEEDTUBE SCH (09:43)
[2021-08-29] MEDS: HEPARIN 5,000 UNIT/1 ML VIAL SUB-Q SCH ×2 (09:45→22:19)
[2021-08-29] MEDS: NYSTATIN 500,000 UNIT/5 ML ORAL LIQD PO SCH ×3 (09:52→19:52)
[2021-08-29] MEDS: busPIRone 10 MG TAB FEEDTUBE SCH ×2 (09:52→22:19)
[2021-08-29] MEDS: SERTRALINE 25 MG TAB FEEDTUBE SCH (09:52)
[2021-08-29] MEDS ORDERED: HALOPERIDOL LACTATE 5 MG/1 ML INJ IV PRN (09:58)
[2021-08-29] MEDS: fentaNYL 100 MCG/2 ML INJ IV PRN ×2 (10:14→17:20)
--- NOTE | 2021-08-29 10:36 | XRay Report ---
CHEST 1 VIEW 08/29/2021 9:13 AM INDICATION / CLINICAL INFORMATION: Dyspnea. COMPARISON: One view of the chest from 08/25/2021. FINDINGS: SUPPORT DEVICES: There has been interval tracheostomy tube placement. The esophagogastric tube has be en removed. HEART / MEDIASTINUM: No significant abnormality. LUNGS / PLEURA: There are similar medial right basilar opacities with otherwise clear lungs. No signi ficant pleural effusion. No pneumothorax. ADDITIONAL FINDINGS: No significant additional findings. IMPRESSION: 1. No new acute findings in the chest. 2. Additional findings as above. Signer Name: Garrett Toscano MD Signed: 08/29/2021 10:31 AM Workstation Name: [id number]
--- NOTE | 2021-08-29 10:47 | Progress Note ---
Assessment and Plan 76 y/o female with acute respiratory failure secondary to angioedema 08/29/21: Agree with hernandez culture, hold on abx, remove lewis. Repeat CXR. Per nursing has not had bowel movement in at least 4 days. Check KUB. PSV trials to start soon 08/28/21: would like to get patient off of continuous sedation so will scheduled tramadol therapy with hopes of weaning Fent Drip. Will order fent 50Q2 PRN pain to help with this as well. Will likely need to be placed on bowel regimen to prevent constipation. Once off continuous drips, can start PSV trials. 08/27/21: Start using peg. Continue PRN fent pushes and will add PRN tramadol as well. Wean sedation off. Can start PSV trials as early as tomorrow. 1. Agree with IV steroids 2. Suggest adding scheduled benadryl and pepcid 3. If swelling does not improve in the next 24-48 hours, suggest a trial of FFP 4. Wean FiO2 for sats > 88% CCT 31 minutes Subjective Date of service: 08/29/21 Interval history: Anxiety this am. Tachycardic, and tachypnea. Febrile as well. Objective Vital Signs - 12hr 08/28/21 08/28/21 08/29/21 22:48 23:00 00:00 Temperature 99.0 F Pulse Rate 81 82 94 H Pulse Rate [ 79 From Monitor] Pulse Rate [ Left Dorsalis Pedis] Pulse Rate [ Left Radial] Pulse Rate [ Radial] Pulse Rate [ Right Dorsalis Pedis] Pulse Rate [ Right Radial] Respiratory 20 20 21 Rate Respiratory Rate [Chest] Blood Pressure 143/90 113/69 109/72 O2 Sat by Pulse 95 96 96 Oximetry O2 Sat by Pulse Oximetry [ Assessment] 08/29/21 08/29/21 08/29/21 00:15 01:00 02:00 Temperature Pulse Rate 85 95 H 85 Pulse Rate [ From Monitor] Pulse Rate [ Left Dorsalis Pedis] Pulse Rate [ Left Radial] Pulse Rate [ Radial] Pulse Rate [ Right Dorsalis Pedis] Pulse Rate [ Right Radial] Respiratory 19 21 Rate Respiratory Rate [Chest] Blood Pressure 109/72 86/47 81/51 O2 Sat by Pulse 94 97 97 Oximetry O2 Sat by Pulse Oximetry [ Assessment] 08/29/21 08/29/21 08/29/21 03:17 04:00 04:22 Temperature 98.7 F Pulse Rate 85 99 H Pulse Rate [ 79 From Monitor] Pulse Rate [ Left Dorsalis Pedis] Pulse Rate [ Left Radial] Pulse Rate [ Radial] Pulse Rate [ Right Dorsalis Pedis] Pulse Rate [ Right Radial] Respiratory 21 Rate Respiratory Rate [Chest] Blood Pressure 112/74 O2 Sat by Pulse 98 96 Oximetry O2 Sat by Pulse 97 Oximetry [ Assessment] 08/29/21 08/29/21 08/29/21 07:00 07:46 08:00 Temperature Pulse Rate 93 H Pulse Rate [ 97 H From Monitor] Pulse Rate [ 97 H Left Dorsalis Pedis] Pulse Rate [ 97 H Left Radial] Pulse Rate [ 98 H Radial] Pulse Rate [ 97 H Right Dorsalis Pedis] Pulse Rate [ 97 H Right Radial] Respiratory 30 H 22 Rate Respiratory 22 Rate [Chest] Blood Pressure 103/65 O2 Sat by Pulse 97 97 Oximetry O2 Sat by Pulse Oximetry [ Assessment] 08/29/21 08/29/21 08/29/21 08:08 08:27 08:40 Temperature 100 F H Pulse Rate 96 H Pulse Rate [ From Monitor] Pulse Rate [ Left Dorsalis Pedis] Pulse Rate [ Left Radial] Pulse Rate [ Radial] Pulse Rate [ Right Dorsalis Pedis] Pulse Rate [ Right Radial] Respiratory Rate Respiratory Rate [Chest] Blood Pressure 111/71 O2 Sat by Pulse 98 Oximetry O2 Sat by Pulse 99 Oximetry [ Assessment] 08/29/21 08/29/21 10:14 10:20 Temperature Pulse Rate Pulse Rate [ From Monitor] Pulse Rate [ Left Dorsalis Pedis] Pulse Rate [ Left Radial] Pulse Rate [ Radial] Pulse Rate [ Right Dorsalis Pedis] Pulse Rate [ Right Radial] Respiratory 36 H 30 H Rate Respiratory Rate [Chest] Blood Pressure O2 Sat by Pulse Oximetry O2 Sat by Pulse Oximetry [ Assessment] Constitutional: no acute distress, other (Sedated) ENT: other (orally intubated, macroglossia) Neck: supple, no lymphadenopathy Effort: other (Supported on ventilator) Ascultation: Bilateral: clear Percussion: Bilateral: not dull Cardiovascular: regular rate and rhythm Gastrointestinal: normoactive bowel sounds Extremities: no cyanosis, no edema, pink and warm Neurologic: other (Sedated) Psychiatric: other (Sedated) CBC and BMP: 08/29/21 04:12 05/15/22 04:12 ABG, PT/INR, D-dimer: ABG ABG pH 7.516 pH Units (7.350-7.450) H 08/27/21 03:56 POC ABG pCO2 30.1 mmHg (32.0-48.0) L 08/22/21 10:16 ABG pCO2 34.4 mm Hg 08/27/21 03:56 POC ABG pO2 109.5 mmHg (83-108) H 08/22/21 10:16 ABG pO2 117.0 mm Hg (80.0-90.0) H 08/27/21 03:56 POC ABG HCO3 23.5 08/22/21 10:16 ABG O2 Saturation 98.4 % (95.0-99.0) 08/27/21 03:56 PT/INR, D-dimer PT 12.8 Sec. (12.2-14.9) 08/19/21 02:24 INR 0.87 (0.87-1.13) 08/19/21 02:24 Abnormal lab findings: Abnormal Labs 08/19/21 08/19/21 08/19/21 02:24 02:24 02:24 WBC 13.9 H RBC MCV 98 H MCH 33 H RDW 15.7 H Seg Neuts % (Manual) Lymphocytes % (Manual) 52.0 H Lymphocytes # (Manual) 7.2 H APTT 20.0 L ABG pH POC ABG pCO2 POC ABG pO2 ABG pO2 ABG HCO3 ABG O2 Saturation ABG Base Excess ABG Hemoglobin Oxyhemoglobin Potassium 3.3 L Chloride Carbon Dioxide 20 L BUN Glucose 143 H POC Glucose Calcium Phosphorus Magnesium Total Protein 8.3 H Triglycerides 08/19/21 08/19/21 08/19/21 06:15 10:20 11:10 WBC RBC MCV MCH RDW Seg Neuts % (Manual) Lymphocytes % (Manual) Lymphocytes # (Manual) APTT ABG pH 7.465 H 7.503 H POC ABG pCO2 POC ABG pO2 ABG pO2 177.7 H 90.5 H ABG HCO3 ABG O2 Saturation 99.2 H ABG Base Excess ABG Hemoglobin Oxyhemoglobin Potassium Chloride Carbon Dioxide BUN Glucose POC Glucose 171 H Calcium Phosphorus Magnesium Total Protein Triglycerides 08/19/21 08/20/21 08/20/21 16:33 00:03 04:25 WBC RBC MCV 98 H MCH 33 H RDW 15.9 H Seg Neuts % (Manual) 83.0 H Lymphocytes % (Manual) Lymphocytes # (Manual) APTT ABG pH POC ABG pCO2 POC ABG pO2 ABG pO2 ABG HCO3 ABG O2 Saturation ABG Base Excess ABG Hemoglobin Oxyhemoglobin Potassium Chloride Carbon Dioxide BUN Glucose POC Glucose 179 H 133 H Calcium Phosphorus Magnesium Total Protein Triglycerides 08/20/21 08/20/21 08/20/21 04:25 04:30 05:39 WBC RBC MCV MCH RDW Seg Neuts % (Manual) Lymphocytes % (Manual) Lymphocytes # (Manual) APTT ABG pH POC ABG pCO2 POC ABG pO2 ABG pO2 95.5 H ABG HCO3 ABG O2 Saturation ABG Base Excess -2.2 L ABG Hemoglobin Oxyhemoglobin Potassium Chloride Carbon Dioxide 21 L BUN Glucose 143 H POC Glucose 168 H Calcium 8.2 L Phosphorus Magnesium Total Protein Triglycerides 08/20/21 08/20/21 08/21/21 12:04 16:38 00:12 WBC RBC MCV MCH RDW Seg Neuts % (Manual) Lymphocytes % (Manual) Lymphocytes # (Manual) APTT ABG pH POC ABG pCO2 POC ABG pO2 ABG pO2 ABG HCO3 ABG O2 Saturation ABG Base Excess ABG Hemoglobin Oxyhemoglobin Potassium Chloride Carbon Dioxide BUN Glucose POC Glucose 151 H 135 H 123 H Calcium Phosphorus Magnesium Total Protein Triglycerides 08/21/21 08/21/21 08/21/21 04:58 04:58 04:59 WBC RBC 3.64 L MCV 100 H MCH RDW 16.4 H Seg Neuts % (Manual) Lymphocytes % (Manual) Lymphocytes # (Manual) APTT ABG pH POC ABG pCO2 POC ABG pO2 ABG pO2 ABG HCO3 ABG O2 Saturation ABG Base Excess -2.6 L ABG Hemoglobin 11.6 L Oxyhemoglobin Potassium 3.5 L Chloride 109.5 H Carbon Dioxide 19 L BUN Glucose 159 H POC Glucose Calcium 8.3 L Phosphorus Magnesium Total Protein Triglycerides 08/21/21 08/21/21 08/21/21 05:22 11:21 16:29 WBC RBC MCV MCH RDW Seg Neuts % (Manual) Lymphocytes % (Manual) Lymphocytes # (Manual) APTT ABG pH POC ABG pCO2 POC ABG pO2 ABG pO2 ABG HCO3 ABG O2 Saturation ABG Base Excess ABG Hemoglobin Oxyhemoglobin Potassium Chloride Carbon Dioxide BUN Glucose POC Glucose 143 H 133 H 122 H Calcium Phosphorus Magnesium Total Protein Triglycerides 08/22/21 08/22/21 08/22/21 00:03 03:54 03:54 WBC RBC 3.53 L MCV 100 H MCH 33 H RDW 16.7 H Seg Neuts % (Manual) Lymphocytes % (Manual) Lymphocytes # (Manual) APTT ABG pH POC ABG pCO2 POC ABG pO2 ABG pO2 ABG HCO3 ABG O2 Saturation ABG Base Excess ABG Hemoglobin Oxyhemoglobin Potassium Chloride 107.5 H Carbon Dioxide BUN Glucose 123 H POC Glucose 132 H Calcium Phosphorus Magnesium Total Protein Triglycerides 08/22/21 08/22/21 08/22/21 04:40 06:08 10:16 WBC RBC MCV MCH RDW Seg Neuts % (Manual) Lymphocytes % (Manual) Lymphocytes # (Manual) APTT ABG pH 7.454 H 7.511 H POC ABG pCO2 30.1 L POC ABG pO2 109.5 H ABG pO2 109.8 H ABG HCO3 ABG O2 Saturation ABG Base Excess ABG Hemoglobin Oxyhemoglobin Potassium Chloride Carbon Dioxide BUN Glucose POC Glucose 137 H Calcium Phosphorus Magnesium Total Protein Triglycerides 08/22/21 08/22/21 08/22/21 10:27 10:27 11:13 WBC RBC MCV 99 H MCH RDW 16.6 H Seg Neuts % (Manual) Lymphocytes % (Manual) Lymphocytes # (Manual) APTT ABG pH POC ABG pCO2 POC ABG pO2 ABG pO2 ABG HCO3 ABG O2 Saturation ABG Base Excess ABG Hemoglobin Oxyhemoglobin Potassium Chloride Carbon Dioxide BUN Glucose 129 H POC Glucose 125 H Calcium Phosphorus Magnesium Total Protein Triglycerides 08/22/21 08/23/21 08/23/21 23:39 04:11 04:11 WBC RBC MCV 98 H MCH 33 H RDW 16.1 H Seg Neuts % (Manual) Lymphocytes % (Manual) Lymphocytes # (Manual) APTT ABG pH POC ABG pCO2 POC ABG pO2 ABG pO2 ABG HCO3 ABG O2 Saturation ABG Base Excess ABG Hemoglobin Oxyhemoglobin Potassium Chloride Carbon Dioxide BUN Glucose 148 H POC Glucose 117 H Calcium Phosphorus Magnesium Total Protein Triglycerides 08/23/21 08/23/21 08/23/21 05:32 11:02 18:04 WBC RBC MCV MCH RDW Seg Neuts % (Manual) Lymphocytes % (Manual) Lymphocytes # (Manual) APTT ABG pH POC ABG pCO2 POC ABG pO2 ABG pO2 ABG HCO3 ABG O2 Saturation ABG Base Excess ABG Hemoglobin Oxyhemoglobin Potassium Chloride Carbon Dioxide BUN Glucose POC Glucose 173 H 146 H 129 H Calcium Phosphorus Magnesium Total Protein Triglycerides 08/24/21 08/24/21 08/24/21 00:27 05:20 06:00 WBC RBC MCV MCH RDW Seg Neuts % (Manual) Lymphocytes % (Manual) Lymphocytes # (Manual) APTT ABG pH 7.481 H POC ABG pCO2 POC ABG pO2 ABG pO2 95.8 H ABG HCO3 29.8 H ABG O2 Saturation ABG Base Excess 5.8 H ABG Hemoglobin Oxyhemoglobin Potassium Chloride Carbon Dioxide BUN Glucose POC Glucose 146 H 159 H Calcium Phosphorus Magnesium Total Protein Triglycerides 08/24/21 08/25/21 08/25/21 11:37 05:13 11:38 WBC RBC MCV MCH RDW Seg Neuts % (Manual) Lymphocytes % (Manual) Lymphocytes # (Manual) APTT ABG pH POC ABG pCO2 POC ABG pO2 ABG pO2 ABG HCO3 ABG O2 Saturation ABG Base Excess ABG Hemoglobin Oxyhemoglobin Potassium Chloride Carbon Dioxide BUN Glucose POC Glucose 154 H 121 H 135 H Calcium Phosphorus Magnesium Total Protein Triglycerides 08/25/21 08/25/21 08/26/21 16:00 17:12 00:04 WBC RBC MCV MCH RDW Seg Neuts % (Manual) Lymphocytes % (Manual) Lymphocytes # (Manual) APTT ABG pH POC ABG pCO2 POC ABG pO2 ABG pO2 78.3 L ABG HCO3 32.7 H ABG O2 Saturation ABG Base Excess 6.3 H ABG Hemoglobin 11.0 L Oxyhemoglobin 93.9 L Potassium Chloride Carbon Dioxide BUN Glucose POC Glucose 179 H 140 H Calcium Phosphorus Magnesium Total Protein Triglycerides 08/26/21 08/26/21 08/26/21 04:22 04:59 04:59 WBC 12.9 H RBC 3.54 L MCV MCH RDW 15.6 H Seg Neuts % (Manual) Lymphocytes % (Manual) Lymphocytes # (Manual) APTT ABG pH 7.533 H POC ABG pCO2 POC ABG pO2 ABG pO2 76.9 L ABG HCO3 29.2 H ABG O2 Saturation ABG Base Excess 6.4 H ABG Hemoglobin 11.6 L Oxyhemoglobin Potassium 3.5 L Chloride Carbon Dioxide BUN 28 H Glucose 139 H POC Glucose Calcium Phosphorus Magnesium Total Protein Triglycerides 08/26/21 08/26/21 08/26/21 05:34 11:21 16:52 WBC RBC MCV MCH RDW Seg Neuts % (Manual) Lymphocytes % (Manual) Lymphocytes # (Manual) APTT ABG pH POC ABG pCO2 POC ABG pO2 ABG pO2 ABG HCO3 ABG O2 Saturation ABG Base Excess ABG Hemoglobin Oxyhemoglobin Potassium Chloride Carbon Dioxide BUN Glucose POC Glucose 152 H 145 H 151 H Calcium Phosphorus Magnesium Total Protein Triglycerides 08/27/21 08/27/21 08/27/21 03:56 04:25 04:25 WBC 12.4 H RBC 3.39 L MCV 98 H MCH RDW 15.8 H Seg Neuts % (Manual) Lymphocytes % (Manual) Lymphocytes # (Manual) APTT ABG pH 7.516 H POC ABG pCO2 POC ABG pO2 ABG pO2 117.0 H ABG HCO3 27.2 H ABG O2 Saturation ABG Base Excess 4.3 H ABG Hemoglobin 11.1 L Oxyhemoglobin Potassium Chloride Carbon Dioxide BUN 27 H Glucose POC Glucose Calcium Phosphorus 2.10 L Magnesium 2.50 H Total Protein Triglycerides 08/27/21 08/27/21 08/27/21 04:25 17:31 23:37 WBC RBC MCV MCH RDW Seg Neuts % (Manual) Lymphocytes % (Manual) Lymphocytes # (Manual) APTT ABG pH POC ABG pCO2 POC ABG pO2 ABG pO2 ABG HCO3 ABG O2 Saturation ABG Base Excess ABG Hemoglobin Oxyhemoglobin Potassium Chloride Carbon Dioxide BUN Glucose POC Glucose 111 H 122 H Calcium Phosphorus Magnesium Total Protein Triglycerides 200 H 08/28/21 08/28/21 08/28/21 04:11 04:11 05:01 WBC 17.2 H RBC 3.29 L MCV 99 H MCH RDW 16.2 H Seg Neuts % (Manual) Lymphocytes % (Manual) Lymphocytes # (Manual) APTT ABG pH POC ABG pCO2 POC ABG pO2 ABG pO2 ABG HCO3 ABG O2 Saturation ABG Base Excess ABG Hemoglobin Oxyhemoglobin Potassium Chloride 109.2 H Carbon Dioxide BUN 22 H Glucose 137 H POC Glucose 133 H Calcium Phosphorus Magnesium Total Protein Triglycerides 08/28/21 08/28/21 08/29/21 11:18 17:34 00:37 WBC RBC MCV MCH RDW Seg Neuts % (Manual) Lymphocytes % (Manual) Lymphocytes # (Manual) APTT ABG pH POC ABG pCO2 POC ABG pO2 ABG pO2 ABG HCO3 ABG O2 Saturation ABG Base Excess ABG Hemoglobin Oxyhemoglobin Potassium Chloride Carbon Dioxide BUN Glucose POC Glucose 144 H 131 H 125 H Calcium Phosphorus Magnesium Total Protein Triglycerides 08/29/21 08/29/21 08/29/21 04:12 04:12 06:17 WBC 22.7 H RBC 3.35 L MCV 98 H MCH RDW 16.0 H Seg Neuts % (Manual) Lymphocytes % (Manual) Lymphocytes # (Manual) APTT ABG pH POC ABG pCO2 POC ABG pO2 ABG pO2 ABG HCO3 ABG O2 Saturation ABG Base Excess ABG Hemoglobin Oxyhemoglobin Potassium Chloride Carbon Dioxide BUN 19 H Glucose 121 H POC Glucose 117 H Calcium Phosphorus Magnesium Total Protein Triglycerides
--- NOTE | 2021-08-29 10:49 | XRay Report ---
ABDOMEN 1 VIEW 08/29/2021 10:03 AM INDICATION / CLINICAL INFORMATION: Distention. COMPARISON: None available. FINDINGS: TUBES / LINES: None. BOWEL GAS PATTERN: Moderate amount of colonic stool. No bowel obstruction FREE AIR / EXTRALUMINAL GAS: None. ADDITIONAL FINDINGS: No significant additional findings. IMPRESSION: 1. No acute findings. Moderate constipation Signer Name: Mychal Thomas MD Signed: 08/29/2021 10:45 AM Workstation Name: [id number] My Name
[2021-08-29] MEDS: ALPRAZolam 0.25 MG TAB FEEDTUBE PRN ×2 (11:56→22:34)
[2021-08-29] MEDS ORDERED: SCOPOLAMINE TRANSDERMAL PATCH 72 HR TD ONE (13:00)
[2021-08-29] MEDS: SENNOSIDES ORAL LIQD 8.8 MG/5 ML ORAL LIQD PO SCH (22:19)
[2021-08-30] MEDS: SUCRALFATE 1 GM TAB FEEDTUBE SCH ×4 (00:18→18:38)
[2021-08-30] MEDS: INSULIN REGULAR, HUMAN 100 UNITS/1 ML SUB-Q SCH ×4 (00:19→18:34)
[2021-08-30] MEDS: traMADol 50 MG TAB FEEDTUBE SCH ×2 (03:06→10:35)
[2021-08-30 03:54] LABS: Hematocrit 32.1 % (30.3-42.9); Hemoglobin 10.6 gm/dl (10.1-14.3); Mean Corpuscular HGB Conc 33 % (30-34); Mean Corpuscular Volume 97 fl (79-97); Platelet Count 218 K/mm3 (140-440); Red Blood Count 3.29 M/mm3 (3.65-5.03); Red Cell Distribution Width 15.6 % (13.2-15.2)
[2021-08-30 04:13] LABS: BUN/Creatinine Ratio 26; Blood Urea Nitrogen 21 mg/dL (7-17); Hemolysis Index 0
[2021-08-30 05:33] LABS: Basophils % (Manual) 0 % (0.0-1.8); Eosinophils % (Manual) 0 % (0.0-4.3); Total Cells Counted 100
[2021-08-30 05:36] LABS: Platelet Estimate Consistent w Auto; RBC Morphology Normal
[2021-08-30] MEDS: LEVOTHYROXINE 75 MCG TAB FEEDTUBE SCH (06:05)
[2021-08-30] MEDS: fentaNYL 100 MCG/2 ML INJ IV PRN (07:55)
[2021-08-30] MEDS: NYSTATIN 500,000 UNIT/5 ML ORAL LIQD PO SCH ×3 (08:45→20:34)
[2021-08-30] MEDS: DOCUSATE SODIUM 100 MG/10 ML ORAL LIQD PO SCH ×2 (10:26→21:03)
[2021-08-30] MEDS: MULTIVITAMIN / MINERAL ORAL LIQUID 15 ML FEEDTUBE SCH (10:26)
[2021-08-30] MEDS: FOLIC ACID 1 MG TAB FEEDTUBE SCH (10:27)
[2021-08-30] MEDS: HEPARIN 5,000 UNIT/1 ML VIAL SUB-Q SCH ×2 (10:30→21:03)
[2021-08-30] MEDS: SERTRALINE 25 MG TAB FEEDTUBE SCH (10:32)
[2021-08-30] MEDS: busPIRone 10 MG TAB FEEDTUBE SCH ×2 (10:32→21:03)
[2021-08-30] MEDS: THIAMINE 100 MG TAB FEEDTUBE SCH (10:32)
[2021-08-30] MEDS: POLYETHYLENE GLYCOL 3350 17 GM POWDER PO SCH (10:32)
[2021-08-30] MEDS: SENNOSIDES ORAL LIQD 8.8 MG/5 ML ORAL LIQD PO SCH ×2 (10:35→21:03)
[2021-08-30] MEDS: FAMOTIDINE 20 MG TAB FEEDTUBE SCH ×2 (10:36→21:03)
[2021-08-30] MEDS ORDERED: MAGNESIUM CITRATE 300 ML ORAL LIQD PO SCH (10:45)
--- NOTE | 2021-08-30 13:07 | Progress Note ---
Assessment and Plan 76 y/o female with acute respiratory failure secondary to angioedema 08/30/21: Start bladder training q4 hours. All cultures negative thus far and no further temps. Given Mag Citrate today, if no BM in the next 24, will start some scheduled lactulose. Continue PSV as tolerated. 08/29/21: Agree with hernandez culture, hold on abx, remove lewis. Repeat CXR. Per nursing has not had bowel movement in at least 4 days. Check KUB. PSV trials to start soon 08/28/21: would like to get patient off of continuous sedation so will scheduled tramadol therapy with hopes of weaning Fent Drip. Will order fent 50Q2 PRN pain to help with this as well. Will likely need to be placed on bowel regimen to prevent constipation. Once off continuous drips, can start PSV trials. 08/27/21: Start using peg. Continue PRN fent pushes and will add PRN tramadol as well. Wean sedation off. Can start PSV trials as early as tomorrow. 1. Agree with IV steroids 2. Suggest adding scheduled benadryl and pepcid 3. If swelling does not improve in the next 24-48 hours, suggest a trial of FFP 4. Wean FiO2 for sats > 88% CCT 31 minutes Subjective Date of service: 08/30/21 Interval history: On PSV and tolerating well. Still having some urinary retention. Objective Vital Signs - 12hr 08/30/21 08/30/21 08/30/21 02:00 03:00 04:00 Temperature 98 F Pulse Rate 85 87 81 Pulse Rate [ 73 From Monitor] Respiratory 21 24 20 Rate Blood Pressure 103/67 98/76 95/60 O2 Sat by Pulse 99 98 100 Oximetry O2 Sat by Pulse Oximetry [ Assessment] 08/30/21 08/30/21 08/30/21 04:12 04:20 05:00 Temperature Pulse Rate 80 72 Pulse Rate [ From Monitor] Respiratory 20 Rate Blood Pressure 95/60 97/60 O2 Sat by Pulse 99 Oximetry O2 Sat by Pulse 98 Oximetry [ Assessment] 08/30/21 08/30/21 08/30/21 06:00 07:00 07:12 Temperature 99.1 F Pulse Rate 71 79 Pulse Rate [ From Monitor] Respiratory 20 21 Rate Blood Pressure 102/61 113/70 O2 Sat by Pulse 99 100 Oximetry O2 Sat by Pulse Oximetry [ Assessment] 08/30/21 08/30/21 08/30/21 08:00 08:30 08:31 Temperature Pulse Rate 77 85 Pulse Rate [ 77 From Monitor] Respiratory 21 19 Rate Blood Pressure 95/59 95/59 O2 Sat by Pulse 100 98 Oximetry O2 Sat by Pulse 100 Oximetry [ Assessment] 08/30/21 08/30/21 08/30/21 09:00 10:00 11:00 Temperature Pulse Rate 84 82 90 Pulse Rate [ From Monitor] Respiratory 21 24 25 H Rate Blood Pressure 101/68 109/65 90/60 O2 Sat by Pulse 96 96 97 Oximetry O2 Sat by Pulse Oximetry [ Assessment] 08/30/21 08/30/21 08/30/21 11:21 11:35 12:00 Temperature 98.2 F Pulse Rate 82 94 H Pulse Rate [ 94 H From Monitor] Respiratory 21 24 Rate Blood Pressure 90/60 108/65 O2 Sat by Pulse 95 95 Oximetry O2 Sat by Pulse Oximetry [ Assessment] Constitutional: no acute distress, other (Sedated) ENT: other (orally intubated, macroglossia) Neck: supple, no lymphadenopathy Effort: other (Supported on ventilator) Ascultation: Bilateral: clear Percussion: Bilateral: not dull Cardiovascular: regular rate and rhythm Gastrointestinal: normoactive bowel sounds Extremities: no cyanosis, no edema, pink and warm Neurologic: other (Sedated) Psychiatric: other (Sedated) CBC and BMP: 08/30/21 03:22 08/30/21 03:22 ABG, PT/INR, D-dimer: ABG ABG pH 7.516 pH Units (7.350-7.450) H 08/27/21 03:56 POC ABG pCO2 30.1 mmHg (32.0-48.0) L 08/22/21 10:16 ABG pCO2 34.4 mm Hg 08/27/21 03:56 POC ABG pO2 109.5 mmHg (83-108) H 08/22/21 10:16 ABG pO2 117.0 mm Hg (80.0-90.0) H 08/27/21 03:56 POC ABG HCO3 23.5 08/22/21 10:16 ABG O2 Saturation 98.4 % (95.0-99.0) 08/27/21 03:56 PT/INR, D-dimer PT 12.8 Sec. (12.2-14.9) 08/19/21 02:24 INR 0.87 (0.87-1.13) 08/19/21 02:24 Abnormal lab findings: Abnormal Labs 08/19/21 08/19/21 08/19/21 02:24 02:24 02:24 WBC 13.9 H RBC MCV 98 H MCH 33 H RDW 15.7 H Seg Neuts % (Manual) Lymphocytes % (Manual) 52.0 H Seg Neutrophils # Man Lymphocytes # (Manual) 7.2 H APTT 20.0 L ABG pH POC ABG pCO2 POC ABG pO2 ABG pO2 ABG HCO3 ABG O2 Saturation ABG Base Excess ABG Hemoglobin Oxyhemoglobin Potassium 3.3 L Chloride Carbon Dioxide 20 L BUN Glucose 143 H POC Glucose Calcium Phosphorus Magnesium Total Protein 8.3 H Triglycerides 08/19/21 08/19/21 08/19/21 06:15 10:20 11:10 WBC RBC MCV MCH RDW Seg Neuts % (Manual) Lymphocytes % (Manual) Seg Neutrophils # Man Lymphocytes # (Manual) APTT ABG pH 7.465 H 7.503 H POC ABG pCO2 POC ABG pO2 ABG pO2 177.7 H 90.5 H ABG HCO3 ABG O2 Saturation 99.2 H ABG Base Excess ABG Hemoglobin Oxyhemoglobin Potassium Chloride Carbon Dioxide BUN Glucose POC Glucose 171 H Calcium Phosphorus Magnesium Total Protein Triglycerides 08/19/21 08/20/21 08/20/21 16:33 00:03 04:25 WBC RBC MCV 98 H MCH 33 H RDW 15.9 H Seg Neuts % (Manual) 83.0 H Lymphocytes % (Manual) Seg Neutrophils # Man Lymphocytes # (Manual) APTT ABG pH POC ABG pCO2 POC ABG pO2 ABG pO2 ABG HCO3 ABG O2 Saturation ABG Base Excess ABG Hemoglobin Oxyhemoglobin Potassium Chloride Carbon Dioxide BUN Glucose POC Glucose 179 H 133 H Calcium Phosphorus Magnesium Total Protein Triglycerides 08/20/21 08/20/21 08/20/21 04:25 04:30 05:39 WBC RBC MCV MCH RDW Seg Neuts % (Manual) Lymphocytes % (Manual) Seg Neutrophils # Man Lymphocytes # (Manual) APTT ABG pH POC ABG pCO2 POC ABG pO2 ABG pO2 95.5 H ABG HCO3 ABG O2 Saturation ABG Base Excess -2.2 L ABG Hemoglobin Oxyhemoglobin Potassium Chloride Carbon Dioxide 21 L BUN Glucose 143 H POC Glucose 168 H Calcium 8.2 L Phosphorus Magnesium Total Protein Triglycerides 08/20/21 08/20/21 08/21/21 12:04 16:38 00:12 WBC RBC MCV MCH RDW Seg Neuts % (Manual) Lymphocytes % (Manual) Seg Neutrophils # Man Lymphocytes # (Manual) APTT ABG pH POC ABG pCO2 POC ABG pO2 ABG pO2 ABG HCO3 ABG O2 Saturation ABG Base Excess ABG Hemoglobin Oxyhemoglobin Potassium Chloride Carbon Dioxide BUN Glucose POC Glucose 151 H 135 H 123 H Calcium Phosphorus Magnesium Total Protein Triglycerides 08/21/21 08/21/21 08/21/21 04:58 04:58 04:59 WBC RBC 3.64 L MCV 100 H MCH RDW 16.4 H Seg Neuts % (Manual) Lymphocytes % (Manual) Seg Neutrophils # Man Lymphocytes # (Manual) APTT ABG pH POC ABG pCO2 POC ABG pO2 ABG pO2 ABG HCO3 ABG O2 Saturation ABG Base Excess -2.6 L ABG Hemoglobin 11.6 L Oxyhemoglobin Potassium 3.5 L Chloride 109.5 H Carbon Dioxide 19 L BUN Glucose 159 H POC Glucose Calcium 8.3 L Phosphorus Magnesium Total Protein Triglycerides 08/21/21 08/21/21 08/21/21 05:22 11:21 16:29 WBC RBC MCV MCH RDW Seg Neuts % (Manual) Lymphocytes % (Manual) Seg Neutrophils # Man Lymphocytes # (Manual) APTT ABG pH POC ABG pCO2 POC ABG pO2 ABG pO2 ABG HCO3 ABG O2 Saturation ABG Base Excess ABG Hemoglobin Oxyhemoglobin Potassium Chloride Carbon Dioxide BUN Glucose POC Glucose 143 H 133 H 122 H Calcium Phosphorus Magnesium Total Protein Triglycerides 08/22/21 08/22/21 08/22/21 00:03 03:54 03:54 WBC RBC 3.53 L MCV 100 H MCH 33 H RDW 16.7 H Seg Neuts % (Manual) Lymphocytes % (Manual) Seg Neutrophils # Man Lymphocytes # (Manual) APTT ABG pH POC ABG pCO2 POC ABG pO2 ABG pO2 ABG HCO3 ABG O2 Saturation ABG Base Excess ABG Hemoglobin Oxyhemoglobin Potassium Chloride 107.5 H Carbon Dioxide BUN Glucose 123 H POC Glucose 132 H Calcium Phosphorus Magnesium Total Protein Triglycerides 08/22/21 08/22/21 08/22/21 04:40 06:08 10:16 WBC RBC MCV MCH RDW Seg Neuts % (Manual) Lymphocytes % (Manual) Seg Neutrophils # Man Lymphocytes # (Manual) APTT ABG pH 7.454 H 7.511 H POC ABG pCO2 30.1 L POC ABG pO2 109.5 H ABG pO2 109.8 H ABG HCO3 ABG O2 Saturation ABG Base Excess ABG Hemoglobin Oxyhemoglobin Potassium Chloride Carbon Dioxide BUN Glucose POC Glucose 137 H Calcium Phosphorus Magnesium Total Protein Triglycerides 08/22/21 08/22/21 08/22/21 10:27 10:27 11:13 WBC RBC MCV 99 H MCH RDW 16.6 H Seg Neuts % (Manual) Lymphocytes % (Manual) Seg Neutrophils # Man Lymphocytes # (Manual) APTT ABG pH POC ABG pCO2 POC ABG pO2 ABG pO2 ABG HCO3 ABG O2 Saturation ABG Base Excess ABG Hemoglobin Oxyhemoglobin Potassium Chloride Carbon Dioxide BUN Glucose 129 H POC Glucose 125 H Calcium Phosphorus Magnesium Total Protein Triglycerides 08/22/21 08/23/21 08/23/21 23:39 04:11 04:11 WBC RBC MCV 98 H MCH 33 H RDW 16.1 H Seg Neuts % (Manual) Lymphocytes % (Manual) Seg Neutrophils # Man Lymphocytes # (Manual) APTT ABG pH POC ABG pCO2 POC ABG pO2 ABG pO2 ABG HCO3 ABG O2 Saturation ABG Base Excess ABG Hemoglobin Oxyhemoglobin Potassium Chloride Carbon Dioxide BUN Glucose 148 H POC Glucose 117 H Calcium Phosphorus Magnesium Total Protein Triglycerides 08/23/21 08/23/21 08/23/21 05:32 11:02 18:04 WBC RBC MCV MCH RDW Seg Neuts % (Manual) Lymphocytes % (Manual) Seg Neutrophils # Man Lymphocytes # (Manual) APTT ABG pH POC ABG pCO2 POC ABG pO2 ABG pO2 ABG HCO3 ABG O2 Saturation ABG Base Excess ABG Hemoglobin Oxyhemoglobin Potassium Chloride Carbon Dioxide BUN Glucose POC Glucose 173 H 146 H 129 H Calcium Phosphorus Magnesium Total Protein Triglycerides 08/24/21 08/24/21 08/24/21 00:27 05:20 06:00 WBC RBC MCV MCH RDW Seg Neuts % (Manual) Lymphocytes % (Manual) Seg Neutrophils # Man Lymphocytes # (Manual) APTT ABG pH 7.481 H POC ABG pCO2 POC ABG pO2 ABG pO2 95.8 H ABG HCO3 29.8 H ABG O2 Saturation ABG Base Excess 5.8 H ABG Hemoglobin Oxyhemoglobin Potassium Chloride Carbon Dioxide BUN Glucose POC Glucose 146 H 159 H Calcium Phosphorus Magnesium Total Protein Triglycerides 08/24/21 08/25/21 08/25/21 11:37 05:13 11:38 WBC RBC MCV MCH RDW Seg Neuts % (Manual) Lymphocytes % (Manual) Seg Neutrophils # Man Lymphocytes # (Manual) APTT ABG pH POC ABG pCO2 POC ABG pO2 ABG pO2 ABG HCO3 ABG O2 Saturation ABG Base Excess ABG Hemoglobin Oxyhemoglobin Potassium Chloride Carbon Dioxide BUN Glucose POC Glucose 154 H 121 H 135 H Calcium Phosphorus Magnesium Total Protein Triglycerides 08/25/21 08/25/21 08/26/21 16:00 17:12 00:04 WBC RBC MCV MCH RDW Seg Neuts % (Manual) Lymphocytes % (Manual) Seg Neutrophils # Man Lymphocytes # (Manual) APTT ABG pH POC ABG pCO2 POC ABG pO2 ABG pO2 78.3 L ABG HCO3 32.7 H ABG O2 Saturation ABG Base Excess 6.3 H ABG Hemoglobin 11.0 L Oxyhemoglobin 93.9 L Potassium Chloride Carbon Dioxide BUN Glucose POC Glucose 179 H 140 H Calcium Phosphorus Magnesium Total Protein Triglycerides 08/26/21 08/26/21 08/26/21 04:22 04:59 04:59 WBC 12.9 H RBC 3.54 L MCV MCH RDW 15.6 H Seg Neuts % (Manual) Lymphocytes % (Manual) Seg Neutrophils # Man Lymphocytes # (Manual) APTT ABG pH 7.533 H POC ABG pCO2 POC ABG pO2 ABG pO2 76.9 L ABG HCO3 29.2 H ABG O2 Saturation ABG Base Excess 6.4 H ABG Hemoglobin 11.6 L Oxyhemoglobin Potassium 3.5 L Chloride Carbon Dioxide BUN 28 H Glucose 139 H POC Glucose Calcium Phosphorus Magnesium Total Protein Triglycerides 08/26/21 08/26/21 08/26/21 05:34 11:21 16:52 WBC RBC MCV MCH RDW Seg Neuts % (Manual) Lymphocytes % (Manual) Seg Neutrophils # Man Lymphocytes # (Manual) APTT ABG pH POC ABG pCO2 POC ABG pO2 ABG pO2 ABG HCO3 ABG O2 Saturation ABG Base Excess ABG Hemoglobin Oxyhemoglobin Potassium Chloride Carbon Dioxide BUN Glucose POC Glucose 152 H 145 H 151 H Calcium Phosphorus Magnesium Total Protein Triglycerides 08/27/21 08/27/21 08/27/21 03:56 04:25 04:25 WBC 12.4 H RBC 3.39 L MCV 98 H MCH RDW 15.8 H Seg Neuts % (Manual) Lymphocytes % (Manual) Seg Neutrophils # Man Lymphocytes # (Manual) APTT ABG pH 7.516 H POC ABG pCO2 POC ABG pO2 ABG pO2 117.0 H ABG HCO3 27.2 H ABG O2 Saturation ABG Base Excess 4.3 H ABG Hemoglobin 11.1 L Oxyhemoglobin Potassium Chloride Carbon Dioxide BUN 27 H Glucose POC Glucose Calcium Phosphorus 2.10 L Magnesium 2.50 H Total Protein Triglycerides 08/27/21 08/27/21 08/27/21 04:25 17:31 23:37 WBC RBC MCV MCH RDW Seg Neuts % (Manual) Lymphocytes % (Manual) Seg Neutrophils # Man Lymphocytes # (Manual) APTT ABG pH POC ABG pCO2 POC ABG pO2 ABG pO2 ABG HCO3 ABG O2 Saturation ABG Base Excess ABG Hemoglobin Oxyhemoglobin Potassium Chloride Carbon Dioxide BUN Glucose POC Glucose 111 H 122 H Calcium Phosphorus Magnesium Total Protein Triglycerides 200 H 08/28/21 08/28/21 08/28/21 04:11 04:11 05:01 WBC 17.2 H RBC 3.29 L MCV 99 H MCH RDW 16.2 H Seg Neuts % (Manual) Lymphocytes % (Manual) Seg Neutrophils # Man Lymphocytes # (Manual) APTT ABG pH POC ABG pCO2 POC ABG pO2 ABG pO2 ABG HCO3 ABG O2 Saturation ABG Base Excess ABG Hemoglobin Oxyhemoglobin Potassium Chloride 109.2 H Carbon Dioxide BUN 22 H Glucose 137 H POC Glucose 133 H Calcium Phosphorus Magnesium Total Protein Triglycerides 08/28/21 08/28/21 08/29/21 11:18 17:34 00:37 WBC RBC MCV MCH RDW Seg Neuts % (Manual) Lymphocytes % (Manual) Seg Neutrophils # Man Lymphocytes # (Manual) APTT ABG pH POC ABG pCO2 POC ABG pO2 ABG pO2 ABG HCO3 ABG O2 Saturation ABG Base Excess ABG Hemoglobin Oxyhemoglobin Potassium Chloride Carbon Dioxide BUN Glucose POC Glucose 144 H 131 H 125 H Calcium Phosphorus Magnesium Total Protein Triglycerides 08/29/21 08/29/21 08/29/21 04:12 04:12 06:17 WBC 22.7 H RBC 3.35 L MCV 98 H MCH RDW 16.0 H Seg Neuts % (Manual) Lymphocytes % (Manual) Seg Neutrophils # Man Lymphocytes # (Manual) APTT ABG pH POC ABG pCO2 POC ABG pO2 ABG pO2 ABG HCO3 ABG O2 Saturation ABG Base Excess ABG Hemoglobin Oxyhemoglobin Potassium Chloride Carbon Dioxide BUN 19 H Glucose 121 H POC Glucose 117 H Calcium Phosphorus Magnesium Total Protein Triglycerides 08/29/21 08/29/21 08/30/21 11:54 18:00 00:17 WBC RBC MCV MCH RDW Seg Neuts % (Manual) Lymphocytes % (Manual) Seg Neutrophils # Man Lymphocytes # (Manual) APTT ABG pH POC ABG pCO2 POC ABG pO2 ABG pO2 ABG HCO3 ABG O2 Saturation ABG Base Excess ABG Hemoglobin Oxyhemoglobin Potassium Chloride Carbon Dioxide BUN Glucose POC Glucose 123 H 117 H 115 H Calcium Phosphorus Magnesium Total Protein Triglycerides 08/30/21 08/30/21 03:22 03:22 WBC 20.3 H RBC 3.29 L MCV MCH RDW 15.6 H Seg Neuts % (Manual) 87.0 H Lymphocytes % (Manual) 10.0 L Seg Neutrophils # Man 17.7 H Lymphocytes # (Manual) APTT ABG pH POC ABG pCO2 POC ABG pO2 ABG pO2 ABG HCO3 ABG O2 Saturation ABG Base Excess ABG Hemoglobin Oxyhemoglobin Potassium Chloride Carbon Dioxide BUN 21 H Glucose 129 H POC Glucose Calcium Phosphorus Magnesium Total Protein Triglycerides
--- NOTE | 2021-08-30 15:46 | Progress Note ---
<RAQUEL ISAACS - Last Filed: 08/30/21 15:53> Assessment and Plan Assessment and plan: This is a 76-year-old female with hypertension, depression and hypothyroidism admitted with angioedema and intubated for airway protection Neuro: h/o depression -Restart home thiamine, multivitamin, Zoloft, BuSpar and as needed Xanax -IVP fentanyl and tramadol prn -Avoid delirium -Reorientation as needed -Maintain sleep-wake cycle -As needed analgesia Cardiac: h/o htn -Blood pressure monitoring per protocol -Hydralazine as needed -resume home antihypertenisve regimen when available and if needed -NS bolus x 1 Liter on 08/20 Respiratory: Acute hypoxic respiratory failure, angioedema -CCM consulted, appreciate recommendations -Intubated in the emergency department on 08/19 with 7.50 ETT at 24 the lips, extubated 08/25 but reintubated shortly after -s/p trach and peg 08/26 -A.m. vent settings: AC Rate 20, TV 450, PEEP 6, 35% FiO2 -See RT notes for titration -CPAP trial per RT -A.m. ABG and CXR noted -VAP bundle -SPO2 monitoring -s/p Benadryl, Pepcid, Solu-Medrol GI: MO -s/p peg 08/26 -24 hours +51 mL -PPI -NTR consulted for tube feedings -BR: Senna,colace, miralax -08/29 suppository -08/30 mag citrate : Urinary retention -Strict intake and output -Renally dose medications -Avoid nephrotoxic medications -Daily weights -Trend BMP -Lewis reinserted -bladder scan and training started today ID: [id number] -f/u blood culture -Monitor WBC and temperature curve Endo: Hyperglycemia, h/o hypothyroidism -continue synthroid -Avoid hypoglycemia -SSI -Accu-Cheks q. 6 Heme: Leukocytosis -Trend CBC -Transfuse hemoglobin less than 7 -Monitor for signs of bleeding -SCDs to BLE while in bed -heparin subq The high probability of a clinically significant, sudden or life threatening deterioration of the [resp] system(s) required my full and direct attention, intervention and personal management. The aggregate critical care time was [60] minutes. This time is in addition to time spent performing reported procedures but includes the following: [x] Data Review and interpretation [x] Patient assessment and monitoring of vital signs [x] Documentation [x] Medication orders and management History Interval history: This is a 76-year-old female with HTN, depression, hypothyroidism who presented to the emergency department on 08/19 via EMS with angioedema reportedly caused by amlodipine however the patient was able to maintain her airway. Per documentation patient was given patient was given 50 mg of IV Benadryl, 0.5 mg epinephrine, 125 mg of IV Solu-Medrol by EMS. At 0235 patient was intubated in the emergency department. Patient was admitted to the hospitalist service with angioedema and mechanical ventilation for airway protection with consults to CCM. Hospital course to date: 08/19: Patient started on tube feedings, potassium repleted, started on Benadryl and propofol for sedation. SSI started. Air leak present today however due to swelling of the tongue we will hold off extubation. CCM plans to try FFP in the a.m. if swelling not better. 08/20: Angioedema slightly better so we will hold off FFP today. Updated son at bedside but he did not know what medication she was taking and states that she has not had angioedema in the past. Patient still remains on Versed and propofol. Was given 500 mL bolus overnight for hypotension and will repeat for hypotension. 08/21: Leak test today at bedside with RT shows no leak and will give FFP today. Tongue looks a bit smaller today but given no leak, CCM will not extubate today. Sedated with propofol and versed. Son at bedside today. 08/22: RT performed leak test in the AM and stated there was a leak noted and placed the patient on CPAP. She was sedated on versed at 4 and propofol at 30 but these are off for CPAP. Will removed lewis. Received FFP yesterday. Angioedema is improved. Leak test performed again with Dr. Bailey and no leak audible. Switched back to AC and sedation restarted 08/23: Remains on the vent and sedated. Cuff leak assessed again today by [facility], still no significant air leak noted. Per CCM keep patient intubated and sedated and continue IV steroids and histamine therapy for now. Fentanyl gtt added, plan to wean off versed for RASS goal of 0 to -1. 08/24: Arousable and appropriate on the vent and on low dose sedation. No cuff leak again today per RT. D/W [facility] plan for CT neck w/o contrast for further eval. If CT neck normal, PSV trial and possible extubation tomorrow. 08/25: S/p extubation this am, audible stridor appreciated. S/p X2 doses of Rac eEpi and IV solumedrol X1 dose. Patient currently stable on 4L NC, SPO2 at 94%. Patient is low threshold for re-intubation, case discussed with anesthesia in case of any decompensation. D/w [facility] patient will need a trach if she is reintubated. Plan of care was thoroughly discussed with patient's son at the bedside by the digital press operator. All question and concerns were addressed at this time. 08/26: Reintubated yesterday due to stridor. General Surgery consulted, plan for possible trach and PEG today. Hypotension resolved this am most likely due to sedation for intubation, VSS today. Wean SPO2 as tolerated for SPO2 above 90%. Continue to monitor and replete electrolytes as needed. 08/27: s/p Trach and PEG overnight. Patient is stable on the vent this am, sedated on propofol and fentanyl. okay to use PEG-tube per general surgery, resume TF as ordered. PRN Analgesia added for pain control, wean off sedation as tolerated. Plan for possible PSV trial tomorrow. 08/28: Stable on the vent, still on sedation. Schedule tramadol and PRN fentanyl added for pain control, plan to wean sedation as tolerated. Possible PSV trial tomorrow if off sedation. PRN Xanax for anxiety. BR added for constipation. 08/29: Back on propofol from overnight due to increase anxiety. Patient is awake and calm this am, will D/C propofol and use PRN Xanax as needed for anxiety. Continue schedule tramadol and PRN fentanyl for pain control. Patient with increase secretion today, orally and via trach. Patient is also febrile with spike in WBCs, Chest XR ordered and will panculture. Hold off IV abx for now. Will also remove lewis catheter, straight/cath and bladder scan per protocol. 08/30: Ordered mag citrate today as suppositories do not yield any results yesterday, will start bladder training today. Remains afebrile. PSV per RT. Hospitalist Physical - Constitutional Vitals: Temp Pulse Resp BP Pulse Ox 98.2 F 94 H 24 108/65 100 08/30/21 11:21 08/30/21 12:00 08/30/21 12:00 08/30/21 12:00 08/30/21 12:00 General appearance: Present: no acute distress, well-nourished, obese - EENT Eyes: Present: PERRL, EOM intact ENT: hearing intact, clear oral mucosa, dentition normal - Neck Neck: Present: normal ROM - Respiratory Respiratory effort: normal Respiratory: bilateral: CTA, diminished - Cardiovascular Rhythm: regular Heart Sounds: Present: S1 & S2. Absent: systolic murmur, diastolic murmur - Extremities Extremities: no ischemia, pulses intact, pulses symmetrical, No edema, normal temperature, normal color Peripheral Pulses: within normal limits - Abdominal General gastrointestinal: soft, non-tender, non-distended, normal bowel sounds - Integumentary Integumentary: Present: warm, dry - Psychiatric Psychiatric: cooperative - Neurologic Neurologic: CNII-XII intact, no focal deficits, moves all extremities - Allied Health Allied health notes reviewed: nursing, RT, social work Results - Labs CBC & Chem 7: 08/30/21 03:22 08/30/21 03:22 Labs: Laboratory Last Values WBC 20.3 K/mm3 (4.5-11.0) H 08/30/21 03:22 RBC 3.29 M/mm3 (3.65-5.03) L 08/30/21 03:22 Hgb 10.6 gm/dl (10.1-14.3) 08/30/21 03:22 Hct 32.1 % (30.3-42.9) 08/30/21 03:22 MCV 97 fl (79-97) 08/30/21 03:22 MCH 32 pg (28-32) 08/30/21 03:22 MCHC 33 % (30-34) 08/30/21 03:22 RDW 15.6 % (13.2-15.2) H 08/30/21 03:22 Plt Count 218 K/mm3 (140-440) 08/30/21 03:22 Lymph # (Auto) Varnish Blender 08/19/21 02:24 Add Manual Diff Complete 08/30/21 03:22 Total Counted 100 08/30/21 03:22 Seg Neuts % (Manual) 87.0 % (40.0-70.0) H 08/30/21 03:22 Band Neutrophils % 0 % 08/30/21 03:22 Lymphocytes % (Manual) 10.0 % (13.4-35.0) L 08/30/21 03:22 Reactive Lymphs % (Man) 0 % 08/30/21 03:22 Monocytes % (Manual) 3.0 % (0.0-7.3) 08/30/21 03:22 Eosinophils % (Manual) 0 % (0.0-4.3) 08/30/21 03:22 Basophils % (Manual) 0 % (0.0-1.8) 08/30/21 03:22 Metamyelocytes % 0 % 08/30/21 03: Myelocytes % 0 % 08/30/21 03:22 Promyelocytes % 0 % 08/30/21 03:22 Blast Cells % 0 % 08/30/21 03:22 Nucleated RBC % Not Reportable 08/30/21 03:22 Seg Neutrophils # Man 17.7 K/mm3 (1.8-7.7) H 08/30/21 03:22 Band Neutrophils # 0.0 K/mm3 08/30/21 03:22 Lymphocytes # (Manual) 2.0 K/mm3 (1.2-5.4) 08/30/21 03:22 Abs React Lymphs (Man) 0.0 K/mm3 08/30/21 03:22 Monocytes # (Manual) 0.6 K/mm3 (0.0-0.8) 08/30/21 03:22 Eosinophils # (Manual) 0.0 K/mm3 (0.0-0.4) 08/30/21 03:22 Basophils # (Manual) 0.0 K/mm3 (0.0-0.1) 08/30/21 03:22 Metamyelocytes # 0.0 K/mm3 08/30/21 03:22 Myelocytes # 0.0 K/mm3 08/30/21 03:22 Promyelocytes # 0.0 K/mm3 08/30/21 03:22 Blast Cells # 0.0 K/mm3 08/30/21 03:22 WBC Morphology Not Reportable 08/30/21 03:22 Hypersegmented Neuts Not Reportable 08/30/21 03:22 Hyposegmented Neuts Not Reportable 08/30/21 03:22 Hypogranular Neuts Not Reportable 08/30/21 03:22 Smudge Cells Not Reportable 08/30/21 03:22 Toxic Granulation Not Reportable 08/30/21 03:22 Toxic Vacuolation Not Reportable 08/30/21 03:22 Dohle Bodies Not Reportable 08/30/21 03:22 Pelger-Huet Anomaly Not Reportable 08/30/21 03:22 Erik Rods Not Reportable 08/30/21 03:22 Platelet Estimate Consistent w auto 08/30/21 03:22 Clumped Platelets Not Reportable 08/30/21 03:22 Plt Clumps, EDTA Not Reportable 08/30/21 03:22 Large Platelets Not Reportable 08/30/21 03:22 Giant Platelets Not Reportable 08/30/21 03:22 Platelet Satelliting Not Reportable 08/30/21 03:22 Plt Morphology Comment Not Reportable 08/30/21 03:22 RBC Morphology Normal 08/30/21 03:22 Dimorphic RBCs Not Reportable 08/30/21 03:22 Polychromasia Not Reportable 08/30/21 03:22 Hypochromasia Not Reportable 08/30/21 03:22 Poikilocytosis Not Reportable 08/30/21 03:22 Anisocytosis Not Reportable 08/30/21 03:22 Microcytosis Not Reportable 08/30/21 03:22 Macrocytosis Not Reportable 08/30/21 03:22 Spherocytes Not Reportable 08/30/21 03:22 Pappenheimer Bodies Not Reportable 08/30/21 03:22 Sickle Cells Not Reportable 08/30/21 03:22 Target Cells Not Reportable 08/30/21 03:22 Tear Drop Cells Not Reportable 08/30/21 03:22 Ovalocytes Not Reportable 08/30/21 03:22 Helmet Cells Not Reportable 08/30/21 03:22 Rai-[place] Bodies Not Reportable 08/30/21 03:22 [place] Rings Not Reportable 08/30/21 03:22 [place] Cells Not Reportable 08/30/21 03:22 Bite Cells Not Reportable 08/30/21 03:22 Crenated Cell Not Reportable 08/30/21 03:22 Elliptocytes Not Reportable 08/30/21 03:22 Acanthocytes (Spur) Not Reportable 08/30/21 03:22 Rouleaux Not Reportable 08/30/21 03:22 Hemoglobin C Crystals Not Reportable 08/30/21 03:22 Schistocytes Not Reportable 08/30/21 03:22 Malaria parasites Not Reportable 08/30/21 03:22 Marco Bodies Not Reportable 08/30/21 03:22 Hem Pathologist Commnt No 08/30/21 03:22 PT 12.8 Sec. (12.2-14.9) 08/19/21 02:24 INR 0.87 (0.87-1.13) 08/19/21 02:24 APTT 20.0 Sec. (24.2-36.6) L 08/19/21 02:24 ABG pH 7.516 pH Units (7.350-7.450) H 08/27/21 03:56 POC ABG pCO2 30.1 mmHg (32.0-48.0) L 08/22/21 10:16 ABG pCO2 34.4 mm Hg 08/27/21 03:56 POC ABG pO2 109.5 mmHg (83-108) H 08/22/21 10:16 ABG pO2 117.0 mm Hg (80.0-90.0) H 08/27/21 03:56 POC ABG HCO3 23.5 08/22/21 10:16 ABG HCO3 27.2 mmol/L (20.0-26.0) H 08/27/21 03:56 ABG O2 Saturation 98.4 % (95.0-99.0) 08/27/21 03:56 ABG O2 Content 15.3 (0.0-44) 08/27/21 03:56 POC ABG Base Excess 1.2 08/22/21 10:16 ABG Base Excess 4.3 mmol/L (-2.0-3.0) H 08/27/21 03:56 ABG Hemoglobin 11.1 gm/dl (12.0-16.0) L 08/27/21 03:56 ABG Oxyhemoglobin 96.8 (94-98) 08/22/21 10:16 ABG Carboxyhemoglobin 1.0 % (0.0-5.0) 08/27/21 03:56 ABG Methemoglobin 0.5 % (0.0-1.5) 08/27/21 03:56 ABG Sodium Not Reportable 08/22/21 10:16 ABG Potassium Not Reportable 08/22/21 10:16 ABG Chloride Not Reportable 08/22/21 10:16 ABG Glucose Not Reportable 08/22/21 10:16 Oxyhemoglobin 96.9 % (95.0-99.0) 08/27/21 03:56 Carboxyhemoglobin 1.1 (0.5-1.5) 08/22/21 10:16 FiO2 40 % 08/27/21 03:56 FiO2 % 30.0 08/22/21 10:16 Sodium 138 mmol/L (137-145) 08/30/21 03:22 Potassium 3.7 mmol/L (3.6-5.0) 08/30/21 03:22 Chloride 103.5 mmol/L (98-107) 08/30/21 03:22 Carbon Dioxide 23 mmol/L (22-30) 08/30/21 03:22 Anion Gap 15 mmol/L 08/30/21 03:22 BUN 21 mg/dL (7-17) H 08/30/21 03:22 Creatinine 0.8 mg/dL (0.6-1.2) 08/30/21 03:22 Estimated GFR > 60 ml/min 08/30/21 03:22 BUN/Creatinine Ratio 26 % 08/30/21 03:22 Glucose 129 mg/dL (65-100) H 08/30/21 03:22 POC Glucose 115 mg/dL (70-105) H 08/30/21 00:17 Calcium 10.0 mg/dL (8.4-10.2) 08/30/21 03:22 Phosphorus 3.50 mg/dL (2.5-4.5) 08/29/21 04:12 Magnesium 2.20 mg/dL (1.7-2.3) 08/29/21 04:12 Total Bilirubin 0.40 mg/dL (0.1-1.2) 08/20/21 04:25 AST 23 units/L (5-40) 08/20/21 04:25 ALT 13 units/L (7-56) 08/20/21 04:25 Alkaline Phosphatase 94 units/L (35-129) 08/20/21 04:25 Total Protein 7.3 g/dL (6.3-8.2) 08/20/21 04:25 Albumin 4.0 g/dL (3.9-5) 08/20/21 04:25 Albumin/Globulin Ratio 1.2 % 08/20/21 04:25 Triglycerides 200 mg/dL (2-149) H 08/27/21 04:25 Arterial Blood Glucose Not Reportable 08/22/21 10:16 Blood Type A POSITIVE 08/21/21 15:10 Microbiology: Microbiology 08/29/21 09:45 Peripheral/Venous Blood Culture - Preliminary NO GROWTH AFTER 24 HOURS 08/29/21 09:45 Peripheral/Venous Blood Culture - Preliminary NO GROWTH AFTER 24 HOURS 08/29/21 12:23 Tracheal Aspirate Sputum Culture - Preliminary Lewis/IV: Voiding Method External Female Catheter Active Medications - Current Medications Current Medications: Generic Name Dose Route Start Last Admin Trade Name Freq PRN Reason Stop Dose Admin Acetaminophen 650 mg 08/19/21 06:00 08/27/21 11:55 Acetaminophen 325 Mg Tab FEEDTUBE 650 mg Q4H PRN Administration Fever >100.5/SAEED Albuterol 2.5 mg 08/19/21 04:50 Albuterol 2.5 Mg/3 Ml Nebu IH Q3HRT PRN Shortness Of Breath Alprazolam 0.25 mg 08/19/21 06:00 08/29/21 22:34 Alprazolam 0.25 Mg Tab FEEDTUBE 0.25 mg BID PRN Administration Anxiety Atorvastatin Calcium 10 mg 08/23/21 22:00 08/29/21 22:18 Atorvastatin 10 Mg Tab FEEDTUBE 10 mg QHS WARD Administration Buspirone HCl 10 mg 08/19/21 10:00 08/30/21 10:32 Buspirone 10 Mg Tab FEEDTUBE 10 mg BID WARD Administration Dextrose 50 ml 08/20/21 10:00 Dextrose 50% In Water (25gm) 50 Ml Syringe IV Q30MIN PRN Hypoglycemia Protocol Docusate Sodium 100 mg 08/28/21 10:00 08/30/21 10:26 Docusate Sodium 100 Mg/10 Ml Oral Liqd PO 100 mg BID WARD Administration Famotidine 20 mg 08/27/21 22:00 08/30/21 10:36 Famotidine 20 Mg Tab FEEDTUBE 20 mg BID WARD Administration Fentanyl 50 mcg 08/28/21 09:37 08/30/21 07:55 Fentanyl 100 Mcg/2 Ml Inj IV 50 mcg Q2H PRN Administration Pain , Severe (7-10) Folic Acid 1 mg 08/19/21 10:00 08/30/21 10:27 Folic Acid 1 Mg Tab FEEDTUBE 1 mg QDAY WARD Administration Haloperidol Lactate 5 mg 08/29/21 09:58 Haloperidol Lactate 5 Mg/1 Ml Inj IV Q6H PRN Agitation Heparin Sodium (Porcine) 5,000 unit 08/19/21 10:00 08/30/21 10:30 Heparin 5,000 Unit/1 Ml Vial SUB-Q 5,000 unit Q12HR WARD Administration Hydralazine HCl 10 mg 08/19/21 05:03 08/24/21 18:09 Hydralazine 20 Mg/1 Ml Inj IV 10 mg Q6H PRN Administration SBP >/=160; DBP >/=100 NORepinephrine/NS 8 MG-250 ML 8 mg in 250 mls @ 3.75 mls/hr 08/25/21 15:00 08/25/21 14:30 Norepinephrine/Ns 8 Mg-250 Ml (Double Conc) IV 2 mcg/min TITRATE WARD 3.75 mls/hr Administration Protocol 2 MCG/MIN Insulin Human Regular 0 units 08/20/21 12:00 08/30/21 05:26 Insulin Regular, Human 100 Units/1 Ml SUB-Q Not Given Q6H [facility] Protocol Levothyroxine Sodium 150 mcg 08/30/21 06:00 08/30/21 06:05 Levothyroxine 75 Mcg Tab FEEDTUBE 150 mcg DAILY@0600 WARD Administration Nystatin 100,000 unit 08/28/21 08:00 08/30/21 08:45 Nystatin 500,000 Unit/5 Ml Oral Liqd PO 100,000 unit TID WARD Administration Ondansetron HCl 4 mg 08/19/21 04:50 Ondansetron 4 Mg/2 Ml Inj IV Q8H PRN Nausea And Vomiting Polyethylene Glycol 17 gm 08/30/21 10:00 08/30/21 10:32 Polyethylene Glycol 3350 17 Gm Powder PO 17 gm QDAY WARD Administration Senna 17.6 mg 08/29/21 22:00 08/30/21 10:35 Sennosides Oral Liqd 8.8 Mg/5 Ml Oral Liqd PO 17.6 mg Q12HR WARD Administration Sertraline HCl 25 mg 08/19/21 10:00 08/30/21 10:32 Sertraline 25 Mg Tab FEEDTUBE 25 mg QDAY WARD Administration Sodium Chloride 10 ml 08/19/21 10:00 08/30/21 10:27 Sodium Chloride 0.9% 10 Ml Flush Syringe IV 10 ml BID WARD Administration Sodium Chloride 10 ml 08/19/21 04:50 Sodium Chloride 0.9% 10 Ml Flush Syringe IV PRN PRN LINE FLUSH Sucralfate 1 gm 08/23/21 18:00 08/30/21 06:05 Sucralfate 1 Gm Tab FEEDTUBE 1 gm Q6HR WARD Administration Thiamine HCl 100 mg 08/19/21 10:00 08/30/21 10:32 Thiamine 100 Mg Tab FEEDTUBE 100 mg QDAY WARD Administration Tramadol HCl 50 mg 08/30/21 13:00 Tramadol 50 Mg Tab FEEDTUBE Q6H PRN Pain, Moderate (4-6) Nutrition/Malnutrition Assess - Dietary Evaluation Nutrition/Malnutrition Findings: Nutrition Notes Start: 08/19/21 10:13 Freq: Status: Active Protocol: Document 08/25/21 17:57 ABRAHAM (Rec: 08/25/21 18:22 ABRAHAM [id number]) Nutrition Notes Initial or Follow up Brief Note Current Diagnosis Hypertension,Respiratory Failure Other Pertinent Diagnosis Angioedema, Hypothyroidism, Psychosis. Current Diet TF-Glucerna 1.2 Dieudonne @ 45 ml/hr (since D 08/23). Height 4 ft 11 in Weight 74 kg [place] Body Weight (kg) 43.18 BMI 32.9 Weight change and time frame No body weight change reported in 2 days. Weight Status Obese Subjective/Other Information RD consult for routine F/U on TF tolerance. TF continues as prescribed, well tolerated, according to RN notes. Pt extubated on 08/25 am, but on low threshold for reintubation; later reintubation was necessary but Pt refused initially, later Pt gave verbal consent and was reintubated. Propofol not given. Plans to place PEG tube on . Percent of energy/protein needs met: Prescribed TF-Glucerna 1.2 Dieudonne @ 45 ml/hr provides for energy/protein needs (1,269 Kcal/65 g) during LOS, 94% Kcal; 70% AA. #1 Nutrition Diagnosis Inadequate oral intake Diagnosis Progress(for reassessment Continues documentation) Is patient on ventilator? Yes Is Patient Ambulatory and/or Out of Bed No REE-([place]-St. Jeor-confined to bed) 1375.068 Kcal/Kg value to use for calculation 17 Approximate Energy Requirements Using 1258 kcal/Kg Calculation Used for Recommendations Kcal/kg Additional Notes Protein: 2 g/Kg IBW; 86 g/day. Fluids: 1 ml/Kcal, or as per MD. Nutrition Intervention Nutrition Support: Continue TF-Glucerna 1.2 Dieudonne @ 45 ml/hr. Flush: 70 ml water Q 4 hr, or as per MD. Kcal 1,269 Protein (gm) 65 Carbohydrates (gm) 124 Fat (gm) 65 Fluid (mL) 869 Fiber (gm) 17 % RDI: 94% Kcal; 70% AA. Goal #1 Provide at least 75% of energy /protein needs through Enteral Feeding during LOS. Goal #2 Maintain body weight within +/ -3% of admission body weight during LOS. Follow-Up By: 08/30/21 Additional Comments Continue monitoring, Ventilation status, TF tolerance and BM. <CATRINA MONDRAGON - Last Filed: 09/02/21 16:52> Assessment and Plan Assessment and plan: I saw and evaluated the patient. I agree with the findings and the plan of care as documented in the Nurse Practitioner's~note, with the following corrections and additions. Hospitalist Physical - Constitutional Vitals: Temp Pulse Resp BP Pulse Ox 97.8 F 94 H 28 H 136/85 99 09/02/21 16:00 09/02/21 16:00 09/02/21 16:00 09/02/21 16:00 09/02/21 16:00 Results - Labs CBC & Chem 7: 09/02/21 04:08 09/02/21 04:08 Labs: Laboratory Last Values WBC 11.0 K/mm3 (4.5-11.0) 09/02/21 04:08 RBC 3.30 M/mm3 (3.65-5.03) L 09/02/21 04:08 Hgb 10.8 gm/dl (10.1-14.3) 09/02/21 04:08 Hct 32.4 % (30.3-42.9) 09/02/21 04:08 MCV 98 fl (79-97) H 09/02/21 04:08 MCH 33 pg (28-32) H 09/02/21 04:08 MCHC 33 % (30-34) 09/02/21 04:08 RDW 15.6 % (13.2-15.2) H 09/02/21 04:08 Plt Count 259 K/mm3 (140-440) 09/02/21 04:08 Lymph # (Auto) Varnish Blender 08/19/21 02:24 Add Manual Diff Complete 08/30/21 03:22 Total Counted 100 08/30/21 03:22 Seg Neuts % (Manual) 87.0 % (40.0-70.0) H 08/30/21 03:22 Band Neutrophils % 0 % 08/30/21 03:22 Lymphocytes % (Manual) 10.0 % (13.4-35.0) L 08/30/21 03:22 Reactive Lymphs % (Man) 0 % 08/30/21 03:22 Monocytes % (Manual) 3.0 % (0.0-7.3) 08/30/21 03:22 Eosinophils % (Manual) 0 % (0.0-4.3) 08/30/21 03:22 Basophils % (Manual) 0 % (0.0-1.8) 08/30/21 03:22 Metamyelocytes % 0 % 08/30/21 03:22 Myelocytes % 0 % 08/30/21 03:22 Promyelocytes % 0 % 08/30/21 03:22 Blast Cells % 0 % 08/30/21 03:22 Nucleated RBC % Not Reportable 08/30/21 03:22 Seg Neutrophils # Man 17.7 K/mm3 (1.8-7.7) H 08/30/21 03:22 Band Neutrophils # 0.0 K/mm3 08/30/21 03:22 Lymphocytes # (Manual) 2.0 K/mm3 (1.2-5.4) 08/30/21 03:22 Abs React Lymphs (Man) 0.0 K/mm3 08/30/21 03:22 Monocytes # (Manual) 0.6 K/mm3 (0.0-0.8) 08/30/21 03:22 Eosinophils # (Manual) 0.0 K/mm3 (0.0-0.4) 08/30/21 03:22 Basophils # (Manual) 0.0 K/mm3 (0.0-0.1) 08/30/21 03:22 Metamyelocytes # 0.0 K/mm3 08/30/21 03:22 Myelocytes # 0.0 K/mm3 08/30/21 03:22 Promyelocytes # 0.0 K/mm3 08/30/21 03:22 Blast Cells # 0.0 K/mm3 08/30/21 03:22 WBC Morphology Not Reportable 08/30/21 03:22 Hypersegmented Neuts Not Reportable 08/30/21 03:22 Hyposegmented Neuts Not Reportable 08/30/21 03:22 Hypogranular Neuts Not Reportable 08/30/21 03:22 Smudge Cells Not Reportable 08/30/21 03:22 Toxic Granulation Not Reportable 08/30/21 03:22 Toxic Vacuolation Not Reportable 08/30/21 03:22 Dohle Bodies Not Reportable 08/30/21 03:22 Pelger-Huet Anomaly Not Reportable 08/30/21 03:22 Erik Rods Not Reportable 08/30/21 03:22 Platelet Estimate Consistent w auto 08/30/21 03:22 Clumped Platelets Not Reportable 08/30/21 03:22 Plt Clumps, EDTA Not Reportable 08/30/21 03:22 Large Platelets Not Reportable 08/30/21 03:22 Giant Platelets Not Reportable 08/30/21 03:22 Platelet Satelliting Not Reportable 08/30/21 03:22 Plt Morphology Comment Not Reportable 08/30/21 03:22 RBC Morphology Normal 08/30/21 03:22 Dimorphic RBCs Not Reportable 08/30/21 03:22 Polychromasia Not Reportable 08/30/21 03:22 Hypochromasia Not Reportable 08/30/21 03:22 Poikilocytosis Not Reportable 08/30/21 03:22 Anisocytosis Not Reportable 08/30/21 03:22 Microcytosis Not Reportable 08/30/21 03:22 Macrocytosis Not Reportable 08/30/21 03:22 Spherocytes Not Reportable 08/30/21 03:22 Pappenheimer Bodies Not Reportable 08/30/21 03:22 Sickle Cells Not Reportable 08/30/21 03:22 Target Cells Not Reportable 08/30/21 03:22 Tear Drop Cells Not Reportable 08/30/21 03:22 Ovalocytes Not Reportable 08/30/21 03:22 Helmet Cells Not Reportable 08/30/21 03:22 Rai-[place] Bodies Not Reportable 08/30/21 03:22 [place] Rings Not Reportable 08/30/21 03:22 [place] Cells Not Reportable 08/30/21 03:22 Bite Cells Not Reportable 08/30/21 03:22 Crenated Cell Not Reportable 08/30/21 03:22 Elliptocytes Not Reportable 08/30/21 03:22 Acanthocytes (Spur) Not Reportable 08/30/21 03:22 Rouleaux Not Reportable 08/30/21 03:22 Hemoglobin C Crystals Not Reportable 08/30/21 03:22 Schistocytes Not Reportable 08/30/21 03:22 Malaria parasites Not Reportable 08/30/21 03:22 Marco Bodies Not Reportable 08/30/21 03:22 Hem Pathologist Commnt No 08/30/21 03:22 PT 12.8 Sec. (12.2-14.9) 08/19/21 02:24 INR 0.87 (0.87-1.13) 08/19/21 02:24 APTT 20.0 Sec. (24.2-36.6) L 08/19/21 02:24 ABG pH 7.516 pH Units (7.350-7.450) H 08/27/21 03:56 POC ABG pCO2 30.1 mmHg (32.0-48.0) L 08/22/21 10:16 ABG pCO2 34.4 mm Hg 08/27/21 03:56 POC ABG pO2 109.5 mmHg (83-108) H 08/22/21 10:16 ABG pO2 117.0 mm Hg (80.0-90.0) H 08/27/21 03:56 POC ABG HCO3 23.5 08/22/21 10:16 ABG HCO3 27.2 mmol/L (20.0-26.0) H 08/27/21 03:56 ABG O2 Saturation 98.4 % (95.0-99.0) 08/27/21 03:56 ABG O2 Content 15.3 (0.0-44) 08/27/21 03:56 POC ABG Base Excess 1.2 08/22/21 10:16 ABG Base Excess 4.3 mmol/L (-2.0-3.0) H 08/27/21 03:56 ABG Hemoglobin 11.1 gm/dl (12.0-16.0) L 08/27/21 03:56 ABG Oxyhemoglobin 96.8 (94-98) 08/22/21 10:16 ABG Carboxyhemoglobin 1.0 % (0.0-5.0) 08/27/21 03:56 ABG Methemoglobin 0.5 % (0.0-1.5) 08/27/21 03:56 ABG Sodium Not Reportable 08/22/21 10:16 ABG Potassium Not Reportable 08/22/21 10:16 ABG Chloride Not Reportable 08/22/21 10:16 ABG Glucose Not Reportable 08/22/21 10:16 Oxyhemoglobin 96.9 % (95.0-99.0) 08/27/21 03:56 Carboxyhemoglobin 1.1 (0.5-1.5) 08/22/21 10:16 FiO2 40 % 08/27/21 03:56 FiO2 % 30.0 08/22/21 10:16 Sodium 132 mmol/L (137-145) L 09/02/21 04:08 Potassium 4.1 mmol/L (3.6-5.0) 09/02/21 04:08 Chloride 99.9 mmol/L (98-107) 09/02/21 04:08 Carbon Dioxide 20 mmol/L (22-30) L 09/02/21 04:08 Anion Gap 16 mmol/L 09/02/21 04:08 BUN 16 mg/dL (7-17) 09/02/21 04:08 Creatinine 0.6 mg/dL (0.6-1.2) 09/02/21 04:08 Estimated GFR > 60 ml/min 09/02/21 04:08 BUN/Creatinine Ratio 27 % 09/02/21 04:08 Glucose 131 mg/dL (65-100) H 09/02/21 04:08 POC Glucose 124 mg/dL (70-105) H 09/02/21 05:31 Calcium 9.5 mg/dL (8.4-10.2) 09/02/21 04:08 Phosphorus 3.50 mg/dL (2.5-4.5) 08/29/21 04:12 Magnesium 2.20 mg/dL (1.7-2.3) 08/29/21 04:12 Total Bilirubin 0.40 mg/dL (0.1-1.2) 08/20/21 04:25 AST 23 units/L (5-40) 08/20/21 04:25 ALT 13 units/L (7-56) 08/20/21 04:25 Alkaline Phosphatase 94 units/L (35-129) 08/20/21 04:25 C-Reactive Protein 29.40 mg/dL (0.00-1.30) H 09/02/21 04:08 Total Protein 7.3 g/dL (6.3-8.2) 08/20/21 04:25 Albumin 4.0 g/dL (3.9-5) 08/20/21 04:25 Albumin/Globulin Ratio 1.2 % 08/20/21 04:25 Triglycerides 200 mg/dL (2-149) H 08/27/21 04:25 Procalcitonin 1.34 ng/mL (<0.15) 09/02/21 04:08 Arterial Blood Glucose Not Reportable 08/22/21 10:16 Blood Type A POSITIVE 08/21/21 15:10 Microbiology: Microbiology 08/29/21 09:45 Peripheral/Venous Blood Culture - Preliminary NO GROWTH AFTER 4 DAYS 08/29/21 09:45 Peripheral/Venous Blood Culture - Preliminary NO GROWTH AFTER 4 DAYS 09/01/21 07:34 Peripheral/Venous Blood Culture - Preliminary NO GROWTH AFTER 24 HOURS 09/01/21 07:34 Peripheral/Venous Blood Culture - Preliminary NO GROWTH AFTER 24 HOURS 09/01/21 12:20 Tracheal Aspirate Sputum Culture - Preliminary Lewis/IV: Voiding Method Indwelling Catheter Active Medications - Current Medications Current Medications: Generic Name Dose Route Start Last Admin Trade Name Freq PRN Reason Stop Dose Admin Acetaminophen 650 mg 08/19/21 06:00 09/02/21 14:20 Acetaminophen 325 Mg Tab FEEDTUBE 650 mg Q4H PRN Administration Fever >100.5/SAEED/MILD PAIN 1-3 Albuterol 2.5 mg 08/19/21 04:50 Albuterol 2.5 Mg/3 Ml Nebu IH Q3HRT PRN Shortness Of Breath Alprazolam 0.25 mg 08/19/21 06:00 08/29/21 22:34 Alprazolam 0.25 Mg Tab FEEDTUBE 0.25 mg BID PRN Administration Anxiety Atorvastatin Calcium 10 mg 08/23/21 22:00 09/01/21 21:07 Atorvastatin 10 Mg Tab FEEDTUBE 10 mg QHS WARD Administration Buspirone HCl 10 mg 08/19/21 10:00 09/02/21 09:12 Buspirone 10 Mg Tab FEEDTUBE 10 mg BID WARD Administration Dextrose 50 ml 08/20/21 10:00 Dextrose 50% In Water (25gm) 50 Ml Syringe IV Q30MIN PRN Hypoglycemia Protocol Docusate Sodium 100 mg 08/28/21 10:00 09/02/21 11:09 Docusate Sodium 100 Mg/10 Ml Oral Liqd PO 100 mg BID WARD Administration Famotidine 20 mg 09/01/21 13:00 09/02/21 09:13 Famotidine 20 Mg/2 Ml Inj IV 20 mg BID WARD Administration Folic Acid 1 mg 08/19/21 10:00 09/02/21 09:12 Folic Acid 1 Mg Tab FEEDTUBE 1 mg QDAY WARD Administration Guaifenesin 200 mg 09/02/21 10:23 Guaifenesin 100 Mg/5 Ml Oral Liqd PO Q4H PRN Cough Haloperidol Lactate 5 mg 08/29/21 09:58 Haloperidol Lactate 5 Mg/1 Ml Inj IV Q6H PRN Agitation Heparin Sodium (Porcine) 5,000 unit 08/19/21 10:00 09/02/21 09:12 Heparin 5,000 Unit/1 Ml Vial SUB-Q 5,000 unit Q12HR WARD Administration Hydralazine HCl 10 mg 08/19/21 05:03 08/24/21 18:09 Hydralazine 20 Mg/1 Ml Inj IV 10 mg Q6H PRN Administration SBP >/=160; DBP >/=100 NORepinephrine/NS 8 MG-250 ML 8 mg in 250 mls @ 3.75 mls/hr 08/25/21 15:00 08/25/21 14:30 Norepinephrine/Ns 8 Mg-250 Ml (Double Conc) IV 2 mcg/min TITRATE WARD 3.75 mls/hr Administration Protocol 2 MCG/MIN Vancomycin HCl 1,250 mg/ 275 mls @ 166.667 mls/hr 09/01/21 13:00 09/02/21 14:19 Sodium Chloride IV 166.667 mls/hr Q24H WARD Administration Levofloxacin/Dextrose 750 mg in 150 mls @ 100 mls/hr 09/01/21 14:00 09/02/21 14:19 Levaquin 750mg/150ml IV 100 mls/hr Q24H AWRD Administration Protocol Fluconazole 200 mg in 100 mls @ 100 mls/hr 09/01/21 20:00 09/01/21 21:09 Diflucan IV 09/14/21 20:59 100 mls/hr Q24H WARD Administration Protocol Aztreonam 2 gm in 100 mls @ 100 mls/hr 09/02/21 16:00 Azactam/Ns 2 Gm/100 Ml IV Q8H [facility] Protocol Insulin Human Regular 0 units 08/20/21 12:00 09/02/21 06:08 Insulin Regular, Human 100 Units/1 Ml SUB-Q Not Given Q6H [facility] Protocol Ketorolac Tromethamine 15 mg 09/01/21 16:00 09/02/21 16:38 Ketorolac 30 Mg/1 Ml Inj IV 09/06/21 15:59 15 mg Q8H PRN Administration Pain, Moderate (4-6) Levothyroxine Sodium 75 mcg 09/01/21 13:00 09/02/21 05:48 Levothyroxine 100 Mcg Inj IV 75 mcg DAILY@0600 [facility] Administration Nystatin 100,000 unit 08/28/21 08:00 09/02/21 14:20 Nystatin 500,000 Unit/5 Ml Oral Liqd PO 09/03/21 20:01 100,000 unit TID WARD Administration Ondansetron HCl 4 mg 08/19/21 04:50 Ondansetron 4 Mg/2 Ml Inj IV Q8H PRN Nausea And Vomiting Polyethylene Glycol 17 gm 08/30/21 10:00 09/02/21 11:09 Polyethylene Glycol 3350 17 Gm Powder PO 17 gm QDAY WARD Administration Senna 17.6 mg 08/29/21 22:00 09/02/21 11:09 Sennosides Oral Liqd 8.8 Mg/5 Ml Oral Liqd PO 17.6 mg Q12HR WARD Administration Sertraline HCl 25 mg 08/19/21 10:00 09/02/21 09:12 Sertraline 25 Mg Tab FEEDTUBE 25 mg QDAY WARD Administration Sodium Chloride 10 ml 08/19/21 10:00 09/02/21 09:13 Sodium Chloride 0.9% 10 Ml Flush Syringe IV 10 ml BID WARD Administration Sodium Chloride 10 ml 08/19/21 04:50 Sodium Chloride 0.9% 10 Ml Flush Syringe IV PRN PRN LINE FLUSH Sucralfate 1 gm 08/23/21 18:00 09/02/21 11:09 Sucralfate 1 Gm Tab FEEDTUBE 1 gm Q6HR WARD Administration Thiamine HCl 100 mg 08/19/21 10:00 09/02/21 09:12 Thiamine 100 Mg Tab FEEDTUBE 100 mg QDAY WARD Administration Tramadol HCl 50 mg 08/30/21 13:00 09/01/21 21:15 Tramadol 50 Mg Tab FEEDTUBE 50 mg Q6H PRN Administration Pain, Moderate (4-6) Nutrition/Malnutrition Assess - Dietary Evaluation Nutrition/Malnutrition Findings: Nutrition Notes Start: 08/19/21 10:13 Freq: Status: Active Protocol: Document 08/30/21 17:38 ABRAHAM (Rec: 08/30/21 18:00 ABRAHAM [id number]) Nutrition Notes Initial or Follow up Reassessment Current Diagnosis Hypertension,Respiratory Failure Other Pertinent Diagnosis s/p PEG Placement,Angioedema, Urinary Retention, Hypothyroidism, Depressio. Current Diet TF-Glucerna 1.2 Dieudonne @ 45 ml/hr (since D 08/23). Labs/Tests 08/30: BUN 21, Glu 129. Pertinent Medications 08/30: Folic acid, Levothyroxine, Thiamine, others nutritionally unremarkable. Height 4 ft 11 in Weight 74 kg [place] Body Weight (kg) 43.18 BMI 32.9 Weight change and time frame No body weight change reported in 1 week. Weight Status Obese Subjective/Other Information RD consult for routine F/U on TF tolerance. TF continues as prescribed, well tolerated. Pt continues on Mechanical Ventilation, O2 satureation @ 100%, according to Physical Assessment History notes. Pt continues to complain from constipation, according to Physical Assessment History notes. Percent of energy/protein needs met: Prescribed TF-Glucerna 1.2 Dieudonne @ 45 ml/hr provides for energy/protein needs (1,269 Kcal/65 g) during LOS, 94% Kcal; 70% AA. Burn Absent Trauma Absent GI Symptoms Constipation Difficulty In Swallowing,Chewing Food Allergy No Skin Integrity/Comment Assessment WNL. Current % PO Other Minimum of two criteria No #1 Nutrition Diagnosis Inadequate oral intake Diagnosis Progress(for reassessment Continues documentation) Is patient on ventilator? Yes Is Patient Ambulatory and/or Out of Bed No REE-([facility]-confined to bed) 1375.068 Kcal/Kg value to use for calculation 17 Approximate Energy Requirements Using 1258 kcal/Kg Calculation Used for Recommendations Kcal/kg Additional Notes Protein: 2 g/Kg IBW; 86 g/day. Fluids: 1 ml/Kcal, or as per MD. Nutrition Intervention Nutrition Support: Continue TF-Glucerna 1.2 Dieudonne @ 45 ml/hr. Flush: 70 ml water Q 4 hr, or as per MD. Kcal 1,269 Protein (gm) 65 Carbohydrates (gm) 124 Fat (gm) 65 Fluid (mL) 869 Fiber (gm) 17 % RDI: 94% Kcal; 70% AA. Goal #1 Provide at least 75% of energy /protein needs through Enteral Feeding during LOS. Goal #2 Maintain body weight within +/ -3% of admission body weight during LOS. Follow-Up By: 09/06/21 Additional Comments Continue monitoring, Ventilation status, TF tolerance and BM.
[2021-08-30] MEDS: ACETAMINOPHEN 325 MG TAB FEEDTUBE PRN (21:08)
[2021-08-31] MEDS: INSULIN REGULAR, HUMAN 100 UNITS/1 ML SUB-Q SCH ×4 (00:52→18:37)
[2021-08-31] MEDS: SUCRALFATE 1 GM TAB FEEDTUBE SCH ×4 (00:52→18:40)
[2021-08-31] MEDS: traMADol 50 MG TAB FEEDTUBE PRN (01:49)
[2021-08-31] MEDS: fentaNYL 100 MCG/2 ML INJ IV PRN (02:56)
[2021-08-31] MEDS: LEVOTHYROXINE 75 MCG TAB FEEDTUBE SCH (05:43)
[2021-08-31 06:11] LABS: Hematocrit 31.8 % (30.3-42.9); Hemoglobin 10.6 gm/dl (10.1-14.3); Mean Corpuscular HGB Conc 33 % (30-34); Mean Corpuscular Volume 97 fl (79-97); Platelet Count 228 K/mm3 (140-440); Red Blood Count 3.28 M/mm3 (3.65-5.03); Red Cell Distribution Width 15.9 % (13.2-15.2)
[2021-08-31 06:34] LABS: BUN/Creatinine Ratio 29; Blood Urea Nitrogen 23 mg/dL (7-17); Calcium 9.9 mg/dL (8.4-10.2); Hemolysis Index 10
[2021-08-31] MEDS: NYSTATIN 500,000 UNIT/5 ML ORAL LIQD PO SCH ×3 (09:00→20:24)
--- NOTE | 2021-08-31 09:10 | Progress Note ---
Assessment and Plan Assessment and plan: This is a 76-year-old female with hypertension, depression and hypothyroidism admitted with angioedema and intubated for airway protection Neuro: h/o depression -Restart home thiamine, multivitamin, Zoloft, BuSpar and as needed Xanax -IVP fentanyl and tramadol prn -Avoid delirium -Reorientation as needed -Maintain sleep-wake cycle -As needed analgesia Cardiac: h/o htn -Blood pressure monitoring per protocol -Hydralazine as needed -resume home antihypertenisve regimen when available and if needed -NS bolus x 1 Liter on 08/20 Respiratory: Acute hypoxic respiratory failure, angioedema -CCM consulted, appreciate recommendations -Intubated in the emergency department on 08/19 with 7.50 ETT at 24 the lips, extubated 08/25 but reintubated shortly after -s/p trach and peg 08/26 -A.m. vent settings: AC Rate 20, TV 450, PEEP 6, 35% FiO2 -See RT notes for titration -CPAP trial per RT -A.m. ABG and CXR noted -VAP bundle -SPO2 monitoring -s/p Benadryl, Pepcid, Solu-Medrol GI: MO -s/p peg 08/26 -24 hours +51 mL -PPI -NTR consulted for tube feedings -BR: Senna,colace, miralax -08/29 suppository -08/30 mag citrate : Urinary retention -Strict intake and output -Renally dose medications -Avoid nephrotoxic medications -Daily weights -Trend BMP -Lewis reinserted -bladder scan and training started today ID: [id number] -f/u blood culture -Monitor WBC and temperature curve Endo: Hyperglycemia, h/o hypothyroidism -continue synthroid -Avoid hypoglycemia -SSI -Accu-Cheks q. 6 Heme: Leukocytosis -Trend CBC -Transfuse hemoglobin less than 7 -Monitor for signs of bleeding -SCDs to BLE while in bed -heparin subq The high probability of a clinically significant, sudden or life threatening deterioration of the [resp] system(s) required my full and direct attention, intervention and personal management. The aggregate critical care time was [60] minutes. This time is in addition to time spent performing reported procedures but includes the following: [x] Data Review and interpretation [x] Patient assessment and monitoring of vital signs [x] Documentation [x] Medication orders and management History Interval history: This is a 76-year-old female with HTN, depression, hypothyroidism who presented to the emergency department on 08/19 via EMS with angioedema reportedly caused by amlodipine however the patient was able to maintain her airway. Per documentation patient was given patient was given 50 mg of IV Benadryl, 0.5 mg epinephrine, 125 mg of IV Solu-Medrol by EMS. At 0235 patient was intubated in the emergency department. Patient was admitted to the hospitalist service with angioedema and mechanical ventilation for airway protection with consults to [facility]. Hospital course to date: 08/19: Patient started on tube feedings, potassium repleted, started on Benadryl and propofol for sedation. SSI started. Air leak present today however due to swelling of the tongue we will hold off extubation. [facility] plans to try FFP in the a.m. if swelling not better. 08/20: Angioedema slightly better so we will hold off FFP today. Updated son at bedside but he did not know what medication she was taking and states that she has not had angioedema in the past. Patient still remains on Versed and propofol. Was given 500 mL bolus overnight for hypotension and will repeat for hypotension. 08/21: Leak test today at bedside with RT shows no leak and will give FFP today. Tongue looks a bit smaller today but given no leak, CCM will not extubate today. Sedated with propofol and versed. Son at bedside today. 08/22: RT performed leak test in the AM and stated there was a leak noted and placed the patient on CPAP. She was sedated on versed at 4 and propofol at 30 but these are off for CPAP. Will removed lewis. Received FFP yesterday. Angioedema is improved. Leak test performed again with Dr. Bailey and no leak audible. Switched back to AC and sedation restarted 08/23: Remains on the vent and sedated. Cuff leak assessed again today by [facility], still no significant air leak noted. Per CCM keep patient intubated and sedated and continue IV steroids and histamine therapy for now. Fentanyl gtt added, plan to wean off versed for RASS goal of 0 to -1. 5/10: Arousable and appropriate on the vent and on low dose sedation. No cuff leak again today per RT. D/W CCM plan for CT neck w/o contrast for further eval. If CT neck normal, PSV trial and possible extubation tomorrow. 08/25: S/p extubation this am, audible stridor appreciated. S/p X2 doses of RaceEpi and IV solumedrol X1 dose. Patient currently stable on 4L NC, SPO2 at 94%. Patient is low threshold for re-intubation, case discussed with anesthesia in case of any decompensation. D/w CCM patient will need a trach if she is reintubated. Plan of care was thoroughly discussed with patient's son at the bedside by the lozenge maker helper. All question and concerns were addressed at this time. 08/26: Reintubated yesterday due to stridor. General Surgery consulted, plan for possible trach and PEG today. Hypotension resolved this am most likely due to sedation for intubation, VSS today. Wean SPO2 as tolerated for SPO2 above 90%. Continue to monitor and replete electrolytes as needed. 08/27: s/p Trach and PEG overnight. Patient is stable on the vent this am, sedated on propofol and fentanyl. okay to use PEG-tube per general surgery, resume TF as ordered. PRN Analgesia added for pain control, wean off sedation as tolerated. Plan for possible PSV trial tomorrow. 08/28: Stable on the vent, still on sedation. Schedule tramadol and PRN fentanyl added for pain control, plan to wean sedation as tolerated. Possible PSV trial tomorrow if off sedation. PRN Xanax for anxiety. BR added for constipation. 08/29: Back on propofol from overnight due to increase anxiety. Patient is awake and calm this am, will D/C propofol and use PRN Xanax as needed for anxiety. Continue schedule tramadol and PRN fentanyl for pain control. Patient with increase secretion today, orally and via trach. Patient is also febrile with spike in WBCs, Chest XR ordered and will panculture. Hold off IV abx for now. Will also remove lewis catheter, straight/cath and bladder scan per protocol. 08/30: Ordered mag citrate today as suppositories do not yield any results yesterday, will start bladder training today. Remains afebrile. PSV per RT. 08/31: D/w Dr Jenkins, will attempt t peice trial for 24 hrs. Ultimately dispo for this patient will be SNF if able to tolerate trial. Paged in afternoon regarding projectile vomiting. No residual noted in PEG tube. KUB ordered. Will likely order Mag citrate as patient has not had BM. Hospitalist Physical - Constitutional Vitals: Temp Pulse Resp BP Pulse Ox 100.0 F H 89 19 101/64 98 08/31/21 07:12 08/31/21 06:00 08/31/21 06:00 08/31/21 06:00 08/31/21 06:00 General appearance: Present: no acute distress, well-nourished, obese Results - Labs CBC & Chem 7: 08/31/21 05:26 08/31/21 05:26 Labs: Laboratory Last Values WBC 13.2 K/mm3 (4.5-11.0) H 08/31/21 05:26 RBC 3.28 M/mm3 (3.65-5.03) L 08/31/21 05:26 Hgb 10.6 gm/dl (10.1-14.3) 08/31/21 05:26 Hct 31.8 % (30.3-42.9) 08/31/21 05:26 MCV 97 fl (79-97) 08/31/21 05:26 MCH 32 pg (28-32) 08/31/21 05:26 MCHC 33 % (30-34) 08/31/21 05:26 RDW 15.9 % (13.2-15.2) H 08/31/21 05:26 Plt Count 228 K/mm3 (140-440) 08/31/21 05:26 Lymph # (Auto) Billet Header 08/19/21 02:24 Add Manual Diff Complete 08/30/21 03:22 Total Counted 100 08/30/21 03:22 Seg Neuts % (Manual) 87.0 % (40.0-70.0) H 08/30/21 03:22 Band Neutrophils % 0 % 08/30/21 03:22 Lymphocytes % (Manual) 10.0 % (13.4-35.0) L 08/30/21 03:22 Reactive Lymphs % (Man) 0 % 08/30/21 03:22 Monocytes % (Manual) 3.0 % (0.0-7.3) 08/30/21 03:22 Eosinophils % (Manual) 0 % (0.0-4.3) 08/30/21 03:22 Basophils % (Manual) 0 % (0.0-1.8) 08/30/21 03:22 Metamyelocytes % 0 % 08/30/21 03:22 Myelocytes % 0 % 08/30/21 03:22 Promyelocytes % 0 % 08/30/21 03:22 Blast Cells % 0 % 08/30/21 03:22 Nucleated RBC % Not Reportable 08/30/21 03:22 Seg Neutrophils # Man 17.7 K/mm3 (1.8-7.7) H 08/30/21 03:22 Band Neutrophils # 0.0 K/mm3 08/30/21 03:22 Lymphocytes # (Manual) 2.0 K/mm3 (1.2-5.4) 08/30/21 03:22 Abs React Lymphs (Man) 0.0 K/mm3 08/30/21 03:22 Monocytes # (Manual) 0.6 K/mm3 (0.0-0.8) 08/30/21 03:22 Eosinophils # (Manual) 0.0 K/mm3 (0.0-0.4) 08/30/21 03:22 Basophils # (Manual) 0.0 K/mm3 (0.0-0.1) 08/30/21 03:22 Metamyelocytes # 0.0 K/mm3 08/30/21 03:22 Myelocytes # 0.0 K/mm3 08/30/21 03:22 Promyelocytes # 0.0 K/mm3 08/30/21 03:22 Blast Cells # 0.0 K/mm3 08/30/21 03:22 WBC Morphology Not Reportable 08/30/21 03:22 Hypersegmented Neuts Not Reportable 08/30/21 03:22 Hyposegmented Neuts Not Reportable 08/30/21 03:22 Hypogranular Neuts Not Reportable 08/30/21 03:22 Smudge Cells Not Reportable 08/30/21 03:22 Toxic Granulation Not Reportable 08/30/21 03:22 Toxic Vacuolation Not Reportable 08/30/21 03:22 Dohle Bodies Not Reportable 08/30/21 03:22 Pelger-Huet Anomaly Not Reportable 08/30/21 03:22 Erik Rods Not Reportable 08/30/21 03:22 Platelet Estimate Consistent w auto 08/30/21 03:22 Clumped Platelets Not Reportable 08/30/21 03:22 Plt Clumps, EDTA Not Reportable 08/30/21 03:22 Large Platelets Not Reportable 08/30/21 03:22 Giant Platelets Not Reportable 08/30/21 03:22 Platelet Satelliting Not Reportable 08/30/21 03:22 Plt Morphology Comment Not Reportable 08/30/21 03:22 RBC Morphology Normal 08/30/21 03:22 Dimorphic RBCs Not Reportable 08/30/21 03:22 Polychromasia Not Reportable 08/30/21 03:22 Hypochromasia Not Reportable 08/30/21 03:22 Poikilocytosis Not Reportable 08/30/21 03:22 Anisocytosis Not Reportable 08/30/21 03:22 Microcytosis Not Reportable 08/30/21 03:22 Macrocytosis Not Reportable 08/30/21 03:22 Spherocytes Not Reportable 08/30/21 03:22 Pappenheimer Bodies Not Reportable 08/30/21 03:22 Sickle Cells Not Reportable 08/30/21 03:22 Target Cells Not Reportable 08/30/21 03:22 Tear Drop Cells Not Reportable 08/30/21 03:22 Ovalocytes Not Reportable 08/30/21 03:22 Helmet Cells Not Reportable 08/30/21 03:22 Rai-Minerva Bodies Not Reportable 08/30/21 03:22 [place] Rings Not Reportable 08/30/21 03:22 [place] Cells Not Reportable 08/30/21 03:22 Bite Cells Not Reportable 08/30/21 03:22 Crenated Cell Not Reportable 08/30/21 03:22 Elliptocytes Not Reportable 08/30/21 03:22 Acanthocytes (Spur) Not Reportable 08/30/21 03:22 Rouleaux Not Reportable 08/30/21 03:22 Hemoglobin C Crystals Not Reportable 08/30/21 03:22 Schistocytes Not Reportable 08/30/21 03:22 Malaria parasites Not Reportable 08/30/21 03:22 Marco Bodies Not Reportable 08/30/21 03:22 Hem Pathologist Commnt No 08/30/21 03:22 PT 12.8 Sec. (12.2-14.9) 08/19/21 02:24 INR 0.87 (0.87-1.13) 08/19/21 02:24 APTT 20.0 Sec. (24.2-36.6) L 08/19/21 02:24 ABG pH 7.516 pH Units (7.350-7.450) H 08/27/21 03:56 POC ABG pCO2 30.1 mmHg (32.0-48.0) L 08/22/21 10:16 ABG pCO2 34.4 mm Hg 08/27/21 03:56 POC ABG pO2 109.5 mmHg (83-108) H 08/22/21 10:16 ABG pO2 117.0 mm Hg (80.0-90.0) H 08/27/21 03:56 POC ABG HCO3 23.5 08/22/21 10:16 ABG HCO3 27.2 mmol/L (20.0-26.0) H 08/27/21 03:56 ABG O2 Saturation 98.4 % (95.0-99.0) 08/27/21 03:56 ABG O2 Content 15.3 (0.0-44) 08/27/21 03:56 POC ABG Base Excess 1.2 08/22/21 10:16 ABG Base Excess 4.3 mmol/L (-2.0-3.0) H 08/27/21 03:56 ABG Hemoglobin 11.1 gm/dl (12.0-16.0) L 08/27/21 03:56 ABG Oxyhemoglobin 96.8 (94-98) 08/22/21 10:16 ABG Carboxyhemoglobin 1.0 % (0.0-5.0) 08/27/21 03:56 ABG Methemoglobin 0.5 % (0.0-1.5) 08/27/21 03:56 ABG Sodium Not Reportable 08/22/21 10:16 ABG Potassium Not Reportable 08/22/21 10:16 ABG Chloride Not Reportable 08/22/21 10:16 ABG Glucose Not Reportable 08/22/21 10:16 Oxyhemoglobin 96.9 % (95.0-99.0) 08/27/21 03:56 Carboxyhemoglobin 1.1 (0.5-1.5) 08/22/21 10:16 FiO2 40 % 08/27/21 03:56 FiO2 % 30.0 08/22/21 10:16 Sodium 137 mmol/L (137-145) 08/31/21 05:26 Potassium 4.2 mmol/L (3.6-5.0) 08/31/21 05:26 Chloride 100.9 mmol/L (98-107) 08/31/21 05:26 Carbon Dioxide 23 mmol/L (22-30) 08/31/21 05:26 Anion Gap 17 mmol/L 08/31/21 05:26 BUN 23 mg/dL (7-17) H 08/31/21 05:26 Creatinine 0.8 mg/dL (0.6-1.2) 08/31/21 05:26 Estimated GFR > 60 ml/min 08/31/21 05:26 BUN/Creatinine Ratio 29 % 08/31/21 05:26 Glucose 123 mg/dL (65-100) H 08/31/21 05:26 POC Glucose 138 mg/dL (70-105) H 08/31/21 00:10 Calcium 9.9 mg/dL (8.4-10.2) 08/31/21 05:26 Phosphorus 3.50 mg/dL (2.5-4.5) 08/29/21 04:12 Magnesium 2.20 mg/dL (1.7-2.3) 08/29/21 04:12 Total Bilirubin 0.40 mg/dL (0.1-1.2) 08/20/21 04:25 AST 23 units/L (5-40) 08/20/21 04:25 ALT 13 units/L (7-56) 08/20/21 04:25 Alkaline Phosphatase 94 units/L (35-129) 08/20/21 04:25 Total Protein 7.3 g/dL (6.3-8.2) 08/20/21 04:25 Albumin 4.0 g/dL (3.9-5) 08/20/21 04:25 Albumin/Globulin Ratio 1.2 % 08/20/21 04:25 Triglycerides 200 mg/dL (2-149) H 08/27/21 04:25 Arterial Blood Glucose Not Reportable 08/22/21 10:16 Blood Type A POSITIVE 08/21/21 15:10 Microbiology: Microbiology 08/29/21 09:45 Peripheral/Venous Blood Culture - Preliminary NO GROWTH AFTER 24 HOURS 08/29/21 09:45 Peripheral/Venous Blood Culture - Preliminary NO GROWTH AFTER 24 HOURS 08/29/21 12:23 Tracheal Aspirate Sputum Culture - Preliminary Lewis/IV: Voiding Method External Female Catheter Active Medications - Current Medications Current Medications: Generic Name Dose Route Start Last Admin Trade Name Freq PRN Reason Stop Dose Admin Acetaminophen 650 mg 08/19/21 06:00 08/30/21 21:08 Acetaminophen 325 Mg Tab FEEDTUBE 650 mg Q4H PRN Administration Fever >100.5/SAEED Albuterol 2.5 mg 08/19/21 04:50 Albuterol 2.5 Mg/3 Ml Nebu IH Q3HRT PRN Shortness Of Breath Alprazolam 0.25 mg 08/19/21 06:00 08/29/21 22:34 Alprazolam 0.25 Mg Tab FEEDTUBE 0.25 mg BID PRN Administration Anxiety Atorvastatin Calcium 10 mg 08/23/21 22:00 08/30/21 21:02 Atorvastatin 10 Mg Tab FEEDTUBE 10 mg QHS WARD Administration Buspirone HCl 10 mg 08/19/21 10:00 08/30/21 21:03 Buspirone 10 Mg Tab FEEDTUBE 10 mg BID WARD Administration Dextrose 50 ml 08/20/21 10:00 Dextrose 50% In Water (25gm) 50 Ml Syringe IV Q30MIN PRN Hypoglycemia Protocol Docusate Sodium 100 mg 08/28/21 10:00 08/30/21 21:03 Docusate Sodium 100 Mg/10 Ml Oral Liqd PO 100 mg BID WARD Administration Famotidine 20 mg 08/27/21 22:00 08/30/21 21:03 Famotidine 20 Mg Tab FEEDTUBE 20 mg BID WARD Administration Fentanyl 50 mcg 08/28/21 09:37 08/31/21 02:56 Fentanyl 100 Mcg/2 Ml Inj IV 50 mcg Q2H PRN Administration Pain , Severe (7-10) Folic Acid 1 mg 08/19/21 10:00 08/30/21 10:27 Folic Acid 1 Mg Tab FEEDTUBE 1 mg QDAY WARD Administration Haloperidol Lactate 5 mg 08/29/21 09:58 Haloperidol Lactate 5 Mg/1 Ml Inj IV Q6H PRN Agitation Heparin Sodium (Porcine) 5,000 unit 08/19/21 10:00 08/30/21 21:03 Heparin 5,000 Unit/1 Ml Vial SUB-Q 5,000 unit Q12HR WARD Administration Hydralazine HCl 10 mg 08/19/21 05:03 08/24/21 18:09 Hydralazine 20 Mg/1 Ml Inj IV 10 mg Q6H PRN Administration SBP >/=160; DBP >/=100 NORepinephrine/NS 8 MG-250 ML 8 mg in 250 mls @ 3.75 mls/hr 08/25/21 15:00 08/25/21 14:30 Norepinephrine/Ns 8 Mg-250 Ml (Double Conc) IV 2 mcg/min TITRATE WARD 3.75 mls/hr Administration Protocol 2 MCG/MIN Insulin Human Regular 0 units 08/20/21 12:00 08/31/21 06:18 Insulin Regular, Human 100 Units/1 Ml SUB-Q Not Given Q6H WARD Protocol Levothyroxine Sodium 150 mcg 08/30/21 06:00 08/31/21 05:43 Levothyroxine 75 Mcg Tab FEEDTUBE 150 mcg DAILY@0600 WARD Administration Nystatin 100,000 unit 08/28/21 08:00 08/30/21 20:34 Nystatin 500,000 Unit/5 Ml Oral Liqd PO 100,000 unit TID WARD Administration Ondansetron HCl 4 mg 08/19/21 04:50 Ondansetron 4 Mg/2 Ml Inj IV Q8H PRN Nausea And Vomiting Polyethylene Glycol 17 gm 08/30/21 10:00 08/30/21 10:32 Polyethylene Glycol 3350 17 Gm Powder PO 17 gm QDAY WARD Administration Senna 17.6 mg 08/29/21 22:00 08/30/21 21:03 Sennosides Oral Liqd 8.8 Mg/5 Ml Oral Liqd PO 17.6 mg Q12HR WARD Administration Sertraline HCl 25 mg 08/19/21 10:00 08/30/21 10:32 Sertraline 25 Mg Tab FEEDTUBE 25 mg QDAY WARD Administration Sodium Chloride 10 ml 08/19/21 10:00 08/30/21 21:03 Sodium Chloride 0.9% 10 Ml Flush Syringe IV 10 ml BID WARD Administration Sodium Chloride 10 ml 08/19/21 04:50 Sodium Chloride 0.9% 10 Ml Flush Syringe IV PRN PRN LINE FLUSH Sucralfate 1 gm 08/23/21 18:00 08/31/21 05:42 Sucralfate 1 Gm Tab FEEDTUBE 1 gm Q6HR WARD Administration Thiamine HCl 100 mg 08/19/21 10:00 08/30/21 10:32 Thiamine 100 Mg Tab FEEDTUBE 100 mg QDAY WARD Administration Tramadol HCl 50 mg 08/30/21 13:00 08/31/21 01:49 Tramadol 50 Mg Tab FEEDTUBE 50 mg Q6H PRN Administration Pain, Moderate (4-6) Nutrition/Malnutrition Assess - Dietary Evaluation Nutrition/Malnutrition Findings: Nutrition Notes Start: 08/19/21 10:13 Freq: Status: Active Protocol: Document 08/30/21 17:38 ABRAHAM (Rec: 08/30/21 18:00 ABRAHAM [id number]) Nutrition Notes Initial or Follow up Reassessment Current Diagnosis Hypertension,Respiratory Failure Other Pertinent Diagnosis s/p PEG Placement,Angioedema, Urinary Retention, Hypothyroidism, Depressio. Current Diet TF-Glucerna 1.2 Dieudonne @ 45 ml/hr (since D 08/23). Labs/Tests 08/30: BUN 21, Glu 129. Pertinent Medications 08/30: Folic acid, Levothyroxine, Thiamine, others nutritionally unremarkable. Height 4 ft 11 in Weight 74 kg Oral Body Weight (kg) 43.18 BMI 32.9 Weight change and time frame No body weight change reported in 1 week. Weight Status Obese Subjective/Other Information RD consult for routine F/U on TF tolerance. TF continues as prescribed, well tolerated. Pt continues on Mechanical Ventilation, O2 satureation @ 100%, according to Physical Assessment History notes. Pt continues to complain from constipation, according to Physical Assessment History notes. Percent of energy/protein needs met: Prescribed TF-Glucerna 1.2 Dieudonne @ 45 ml/hr provides for energy/protein needs (1,269 Kcal/65 g) during LOS, 94% Kcal; 70% AA. Burn Absent Trauma Absent GI Symptoms Constipation Difficulty In Swallowing,Chewing Food Allergy No Skin Integrity/Comment Assessment WNL. Current % PO Other Minimum of two criteria No #1 Nutrition Diagnosis Inadequate oral intake Diagnosis Progress(for reassessment Continues documentation) Is patient on ventilator? Yes Is Patient Ambulatory and/or Out of Bed No REE-([place]-confined to bed) 1375.068 Kcal/Kg value to use for calculation 17 Approximate Energy Requirements Using 1258 kcal/Kg Calculation Used for Recommendations Kcal/kg Additional Notes Protein: 2 g/Kg IBW; 86 g/day. Fluids: 1 ml/Kcal, or as per MD. Nutrition Intervention Nutrition Support: Continue TF-Glucerna 1.2 Dieudonne @ 45 ml/hr. Flush: 70 ml water Q 4 hr, or as per MD. Kcal 1,269 Protein (gm) 65 Carbohydrates (gm) 124 Fat (gm) 65 Fluid (mL) 869 Fiber (gm) 17 % RDI: 94% Kcal; 70% AA. Goal #1 Provide at least 75% of energy /protein needs through Enteral Feeding during LOS. Goal #2 Maintain body weight within +/ -3% of admission body weight during LOS. Follow-Up By: 09/06/21 Additional Comments Continue monitoring, Ventilation status, TF tolerance and BM.
--- NOTE | 2021-08-31 09:54 | Progress Note ---
Assessment and Plan 76 y/o female with acute respiratory failure secondary to angioedema 08/31/21: Dropped PSV to 10/6, if tolerates then in a few hours place on T- piece. Rest on PSV tonight. Then 24 hours of T-piece tomorrow. Most likely transfer out of unit on . Will discuss urine situation with nursing staff. Voided and has had no issues so will not place lewis. Spiked a temp. Repeat cultures with next temperature spike and will start on Diflucan empirically for oral candidiasis. 08/30/21: Start bladder training q4 hours. All cultures negative thus far and no further temps. Given Mag Citrate today, if no BM in the next 24, will start some scheduled lactulose. Continue PSV as tolerated. 08/29/21: Agree with hernandez culture, hold on abx, remove lewis. Repeat CXR. Per nursing has not had bowel movement in at least 4 days. Check KUB. PSV trials to start soon 08/28/21: would like to get patient off of continuous sedation so will scheduled tramadol therapy with hopes of weaning Fent Drip. Will order fent 50Q2 PRN pain to help with this as well. Will likely need to be placed on bowel regimen to prevent constipation. Once off continuous drips, can start PSV trials. 08/27/21: Start using peg. Continue PRN fent pushes and will add PRN tramadol as well. Wean sedation off. Can start PSV trials as early as tomorrow. 1. Agree with IV steroids 2. Suggest adding scheduled benadryl and pepcid 3. If swelling does not improve in the next 24-48 hours, suggest a trial of FFP 4. Wean FiO2 for sats > 88% CCT 31 minutes Subjective Date of service: 08/31/21 Interval history: No acute events. Tolerated PSV 12/6 all night last night. Awake and alert. Comfortable Objective Vital Signs - 12hr 08/30/21 08/30/21 08/30/21 22:00 23:00 23:03 Temperature Pulse Rate 94 H 88 89 Pulse Rate [ From Monitor] Respiratory 21 20 20 Rate Blood Pressure 100/64 101/65 101/65 O2 Sat by Pulse 99 98 99 Oximetry O2 Sat by Pulse Oximetry [ Assessment] 08/31/21 08/31/21 08/31/21 00:00 01:00 02:00 Temperature 99.5 F Pulse Rate 81 86 88 Pulse Rate [ 102 H From Monitor] Respiratory 28 H 20 20 Rate Blood Pressure 98/59 110/73 115/69 O2 Sat by Pulse 100 97 98 Oximetry O2 Sat by Pulse 99 Oximetry [ Assessment] 08/31/21 08/31/21 08/31/21 03:00 04:00 05:00 Temperature 97.9 F Pulse Rate 96 H 85 90 Pulse Rate [ 85 From Monitor] Respiratory 21 20 20 Rate Blood Pressure 115/69 108/70 98/64 O2 Sat by Pulse 98 99 98 Oximetry O2 Sat by Pulse Oximetry [ Assessment] 08/31/21 08/31/21 08/31/21 06:00 07:12 09:22 Temperature 100.0 F H Pulse Rate 89 102 H Pulse Rate [ From Monitor] Respiratory 19 16 Rate Blood Pressure 101/64 108/75 O2 Sat by Pulse 98 100 Oximetry O2 Sat by Pulse Oximetry [ Assessment] 08/31/21 09:27 Temperature Pulse Rate Pulse Rate [ From Monitor] Respiratory Rate Blood Pressure O2 Sat by Pulse Oximetry O2 Sat by Pulse 98 Oximetry [ Assessment] Constitutional: no acute distress, other (Sedated) ENT: other (orally intubated, macroglossia) Neck: supple, no lymphadenopathy Effort: other (Supported on ventilator) Ascultation: Bilateral: clear Percussion: Bilateral: not dull Cardiovascular: regular rate and rhythm Gastrointestinal: normoactive bowel sounds Extremities: no cyanosis, no edema, pink and warm Neurologic: other (Sedated) Psychiatric: other (Sedated) CBC and BMP: 08/31/21 05:26 08/31/21 05:26 ABG, PT/INR, D-dimer: ABG ABG pH 7.516 pH Units (7.350-7.450) H 08/27/21 03:56 POC ABG pCO2 30.1 mmHg (32.0-48.0) L 08/22/21 10:16 ABG pCO2 34.4 mm Hg 08/27/21 03:56 POC ABG pO2 109.5 mmHg (83-108) H 08/22/21 10:16 ABG pO2 117.0 mm Hg (80.0-90.0) H 08/27/21 03:56 POC ABG HCO3 23.5 08/22/21 10:16 ABG O2 Saturation 98.4 % (95.0-99.0) 08/27/21 03:56 PT/INR, D-dimer PT 12.8 Sec. (12.2-14.9) 08/19/21 02:24 INR 0.87 (0.87-1.13) 08/19/21 02:24 Abnormal lab findings: Abnormal Labs 08/19/21 08/19/21 08/19/21 02:24 02:24 02:24 WBC 13.9 H RBC MCV 98 H MCH 33 H RDW 15.7 H Seg Neuts % (Manual) Lymphocytes % (Manual) 52.0 H Seg Neutrophils # Man Lymphocytes # (Manual) 7.2 H APTT 20.0 L ABG pH POC ABG pCO2 POC ABG pO2 ABG pO2 ABG HCO3 ABG O2 Saturation ABG Base Excess ABG Hemoglobin Oxyhemoglobin Potassium 3.3 L Chloride Carbon Dioxide 20 L BUN Glucose 143 H POC Glucose Calcium Phosphorus Magnesium Total Protein 8.3 H Triglycerides 08/19/21 08/19/21 08/19/21 06:15 10:20 11:10 WBC RBC MCV MCH RDW Seg Neuts % (Manual) Lymphocytes % (Manual) Seg Neutrophils # Man Lymphocytes # (Manual) APTT ABG pH 7.465 H 7.503 H POC ABG pCO2 POC ABG pO2 ABG pO2 177.7 H 90.5 H ABG HCO3 ABG O2 Saturation 99.2 H ABG Base Excess ABG Hemoglobin Oxyhemoglobin Potassium Chloride Carbon Dioxide BUN Glucose POC Glucose 171 H Calcium Phosphorus Magnesium Total Protein Triglycerides 08/19/21 08/20/21 08/20/21 16:33 00:03 04:25 WBC RBC MCV 98 H MCH 33 H RDW 15.9 H Seg Neuts % (Manual) 83.0 H Lymphocytes % (Manual) Seg Neutrophils # Man Lymphocytes # (Manual) APTT ABG pH POC ABG pCO2 POC ABG pO2 ABG pO2 ABG HCO3 ABG O2 Saturation ABG Base Excess ABG Hemoglobin Oxyhemoglobin Potassium Chloride Carbon Dioxide BUN Glucose POC Glucose 179 H 133 H Calcium Phosphorus Magnesium Total Protein Triglycerides 08/20/21 08/20/21 08/20/21 04:25 04:30 05:39 WBC RBC MCV MCH RDW Seg Neuts % (Manual) Lymphocytes % (Manual) Seg Neutrophils # Man Lymphocytes # (Manual) APTT ABG pH POC ABG pCO2 POC ABG pO2 ABG pO2 95.5 H ABG HCO3 ABG O2 Saturation ABG Base Excess -2.2 L ABG Hemoglobin Oxyhemoglobin Potassium Chloride Carbon Dioxide 21 L BUN Glucose 143 H POC Glucose 168 H Calcium 8.2 L Phosphorus Magnesium Total Protein Triglycerides 08/20/21 08/20/21 08/21/21 12:04 16:38 00:12 WBC RBC MCV MCH RDW Seg Neuts % (Manual) Lymphocytes % (Manual) Seg Neutrophils # Man Lymphocytes # (Manual) APTT ABG pH POC ABG pCO2 POC ABG pO2 ABG pO2 ABG HCO3 ABG O2 Saturation ABG Base Excess ABG Hemoglobin Oxyhemoglobin Potassium Chloride Carbon Dioxide BUN Glucose POC Glucose 151 H 135 H 123 H Calcium Phosphorus Magnesium Total Protein Triglycerides 08/21/21 08/21/21 08/21/21 04:58 04:58 04:59 WBC RBC 3.64 L MCV 100 H MCH RDW 16.4 H Seg Neuts % (Manual) Lymphocytes % (Manual) Seg Neutrophils # Man Lymphocytes # (Manual) APTT ABG pH POC ABG pCO2 POC ABG pO2 ABG pO2 ABG HCO3 ABG O2 Saturation ABG Base Excess -2.6 L ABG Hemoglobin 11.6 L Oxyhemoglobin Potassium 3.5 L Chloride 109.5 H Carbon Dioxide 19 L BUN Glucose 159 H POC Glucose Calcium 8.3 L Phosphorus Magnesium Total Protein Triglycerides 08/21/21 08/21/21 08/21/21 05:22 11:21 16:29 WBC RBC MCV MCH RDW Seg Neuts % (Manual) Lymphocytes % (Manual) Seg Neutrophils # Man Lymphocytes # (Manual) APTT ABG pH POC ABG pCO2 POC ABG pO2 ABG pO2 ABG HCO3 ABG O2 Saturation ABG Base Excess ABG Hemoglobin Oxyhemoglobin Potassium Chloride Carbon Dioxide BUN Glucose POC Glucose 143 H 133 H 122 H Calcium Phosphorus Magnesium Total Protein Triglycerides 08/22/21 08/22/21 08/22/21 00:03 03:54 03:54 WBC RBC 3.53 L MCV 100 H MCH 33 H RDW 16.7 H Seg Neuts % (Manual) Lymphocytes % (Manual) Seg Neutrophils # Man Lymphocytes # (Manual) APTT ABG pH POC ABG pCO2 POC ABG pO2 ABG pO2 ABG HCO3 ABG O2 Saturation ABG Base Excess ABG Hemoglobin Oxyhemoglobin Potassium Chloride 107.5 H Carbon Dioxide BUN Glucose 123 H POC Glucose 132 H Calcium Phosphorus Magnesium Total Protein Triglycerides 08/22/21 08/22/21 08/22/21 04:40 06:08 10:16 WBC RBC MCV MCH RDW Seg Neuts % (Manual) Lymphocytes % (Manual) Seg Neutrophils # Man Lymphocytes # (Manual) APTT ABG pH 7.454 H 7.511 H POC ABG pCO2 30.1 L POC ABG pO2 109.5 H ABG pO2 109.8 H ABG HCO3 ABG O2 Saturation ABG Base Excess ABG Hemoglobin Oxyhemoglobin Potassium Chloride Carbon Dioxide BUN Glucose POC Glucose 137 H Calcium Phosphorus Magnesium Total Protein Triglycerides 08/22/21 08/22/21 08/22/21 10:27 10:27 11:13 WBC RBC MCV 99 H MCH RDW 16.6 H Seg Neuts % (Manual) Lymphocytes % (Manual) Seg Neutrophils # Man Lymphocytes # (Manual) APTT ABG pH POC ABG pCO2 POC ABG pO2 ABG pO2 ABG HCO3 ABG O2 Saturation ABG Base Excess ABG Hemoglobin Oxyhemoglobin Potassium Chloride Carbon Dioxide BUN Glucose 129 H POC Glucose 125 H Calcium Phosphorus Magnesium Total Protein Triglycerides 08/22/21 08/23/21 08/23/21 23:39 04:11 04:11 WBC RBC MCV 98 H MCH 33 H RDW 16.1 H Seg Neuts % (Manual) Lymphocytes % (Manual) Seg Neutrophils # Man Lymphocytes # (Manual) APTT ABG pH POC ABG pCO2 POC ABG pO2 ABG pO2 ABG HCO3 ABG O2 Saturation ABG Base Excess ABG Hemoglobin Oxyhemoglobin Potassium Chloride Carbon Dioxide BUN Glucose 148 H POC Glucose 117 H Calcium Phosphorus Magnesium Total Protein Triglycerides 08/23/21 08/23/21 08/23/21 05:32 11:02 18:04 WBC RBC MCV MCH RDW Seg Neuts % (Manual) Lymphocytes % (Manual) Seg Neutrophils # Man Lymphocytes # (Manual) APTT ABG pH POC ABG pCO2 POC ABG pO2 ABG pO2 ABG HCO3 ABG O2 Saturation ABG Base Excess ABG Hemoglobin Oxyhemoglobin Potassium Chloride Carbon Dioxide BUN Glucose POC Glucose 173 H 146 H 129 H Calcium Phosphorus Magnesium Total Protein Triglycerides 08/24/21 08/24/21 08/24/21 00:27 05:20 06:00 WBC RBC MCV MCH RDW Seg Neuts % (Manual) Lymphocytes % (Manual) Seg Neutrophils # Man Lymphocytes # (Manual) APTT ABG pH 7.481 H POC ABG pCO2 POC ABG pO2 ABG pO2 95.8 H ABG HCO3 29.8 H ABG O2 Saturation ABG Base Excess 5.8 H ABG Hemoglobin Oxyhemoglobin Potassium Chloride Carbon Dioxide BUN Glucose POC Glucose 146 H 159 H Calcium Phosphorus Magnesium Total Protein Triglycerides 08/24/21 08/25/21 08/25/21 11:37 05:13 11:38 WBC RBC MCV MCH RDW Seg Neuts % (Manual) Lymphocytes % (Manual) Seg Neutrophils # Man Lymphocytes # (Manual) APTT ABG pH POC ABG pCO2 POC ABG pO2 ABG pO2 ABG HCO3 ABG O2 Saturation ABG Base Excess ABG Hemoglobin Oxyhemoglobin Potassium Chloride Carbon Dioxide BUN Glucose POC Glucose 154 H 121 H 135 H Calcium Phosphorus Magnesium Total Protein Triglycerides 08/25/21 08/25/21 08/26/21 16:00 17:12 00:04 WBC RBC MCV MCH RDW Seg Neuts % (Manual) Lymphocytes % (Manual) Seg Neutrophils # Man Lymphocytes # (Manual) APTT ABG pH POC ABG pCO2 POC ABG pO2 ABG pO2 78.3 L ABG HCO3 32.7 H ABG O2 Saturation ABG Base Excess 6.3 H ABG Hemoglobin 11.0 L Oxyhemoglobin 93.9 L Potassium Chloride Carbon Dioxide BUN Glucose POC Glucose 179 H 140 H Calcium Phosphorus Magnesium Total Protein Triglycerides 08/26/21 08/26/21 08/26/21 04:22 04:59 04:59 WBC 12.9 H RBC 3.54 L MCV MCH RDW 15.6 H Seg Neuts % (Manual) Lymphocytes % (Manual) Seg Neutrophils # Man Lymphocytes # (Manual) APTT ABG pH 7.533 H POC ABG pCO2 POC ABG pO2 ABG pO2 76.9 L ABG HCO3 29.2 H ABG O2 Saturation ABG Base Excess 6.4 H ABG Hemoglobin 11.6 L Oxyhemoglobin Potassium 3.5 L Chloride Carbon Dioxide BUN 28 H Glucose 139 H POC Glucose Calcium Phosphorus Magnesium Total Protein Triglycerides 08/26/21 08/26/21 08/26/21 05:34 11:21 16:52 WBC RBC MCV MCH RDW Seg Neuts % (Manual) Lymphocytes % (Manual) Seg Neutrophils # Man Lymphocytes # (Manual) APTT ABG pH POC ABG pCO2 POC ABG pO2 ABG pO2 ABG HCO3 ABG O2 Saturation ABG Base Excess ABG Hemoglobin Oxyhemoglobin Potassium Chloride Carbon Dioxide BUN Glucose POC Glucose 152 H 145 H 151 H Calcium Phosphorus Magnesium Total Protein Triglycerides 08/27/21 08/27/21 08/27/21 03:56 04:25 04:25 WBC 12.4 H RBC 3.39 L MCV 98 H MCH RDW 15.8 H Seg Neuts % (Manual) Lymphocytes % (Manual) Seg Neutrophils # Man Lymphocytes # (Manual) APTT ABG pH 7.516 H POC ABG pCO2 POC ABG pO2 ABG pO2 117.0 H ABG HCO3 27.2 H ABG O2 Saturation ABG Base Excess 4.3 H ABG Hemoglobin 11.1 L Oxyhemoglobin Potassium Chloride Carbon Dioxide BUN 27 H Glucose POC Glucose Calcium Phosphorus 2.10 L Magnesium 2.50 H Total Protein Triglycerides 08/27/21 08/27/21 08/27/21 04:25 17:31 23:37 WBC RBC MCV MCH RDW Seg Neuts % (Manual) Lymphocytes % (Manual) Seg Neutrophils # Man Lymphocytes # (Manual) APTT ABG pH POC ABG pCO2 POC ABG pO2 ABG pO2 ABG HCO3 ABG O2 Saturation ABG Base Excess ABG Hemoglobin Oxyhemoglobin Potassium Chloride Carbon Dioxide BUN Glucose POC Glucose 111 H 122 H Calcium Phosphorus Magnesium Total Protein Triglycerides 200 H 08/28/21 08/28/21 08/28/21 04:11 04:11 05:01 WBC 17.2 H RBC 3.29 L MCV 99 H MCH RDW 16.2 H Seg Neuts % (Manual) Lymphocytes % (Manual) Seg Neutrophils # Man Lymphocytes # (Manual) APTT ABG pH POC ABG pCO2 POC ABG pO2 ABG pO2 ABG HCO3 ABG O2 Saturation ABG Base Excess ABG Hemoglobin Oxyhemoglobin Potassium Chloride 109.2 H Carbon Dioxide BUN 22 H Glucose 137 H POC Glucose 133 H Calcium Phosphorus Magnesium Total Protein Triglycerides 08/28/21 08/28/21 08/29/21 11:18 17:34 00:37 WBC RBC MCV MCH RDW Seg Neuts % (Manual) Lymphocytes % (Manual) Seg Neutrophils # Man Lymphocytes # (Manual) APTT ABG pH POC ABG pCO2 POC ABG pO2 ABG pO2 ABG HCO3 ABG O2 Saturation ABG Base Excess ABG Hemoglobin Oxyhemoglobin Potassium Chloride Carbon Dioxide BUN Glucose POC Glucose 144 H 131 H 125 H Calcium Phosphorus Magnesium Total Protein Triglycerides 08/29/21 08/29/21 08/29/21 04:12 04:12 06:17 WBC 22.7 H RBC 3.35 L MCV 98 H MCH RDW 16.0 H Seg Neuts % (Manual) Lymphocytes % (Manual) Seg Neutrophils # Man Lymphocytes # (Manual) APTT ABG pH POC ABG pCO2 POC ABG pO2 ABG pO2 ABG HCO3 ABG O2 Saturation ABG Base Excess ABG Hemoglobin Oxyhemoglobin Potassium Chloride Carbon Dioxide BUN 19 H Glucose 121 H POC Glucose 117 H Calcium Phosphorus Magnesium Total Protein Triglycerides 08/29/21 08/29/21 08/30/21 11:54 18:00 00:17 WBC RBC MCV MCH RDW Seg Neuts % (Manual) Lymphocytes % (Manual) Seg Neutrophils # Man Lymphocytes # (Manual) APTT ABG pH POC ABG pCO2 POC ABG pO2 ABG pO2 ABG HCO3 ABG O2 Saturation ABG Base Excess ABG Hemoglobin Oxyhemoglobin Potassium Chloride Carbon Dioxide BUN Glucose POC Glucose 123 H 117 H 115 H Calcium Phosphorus Magnesium Total Protein Triglycerides 08/30/21 08/30/21 08/30/21 03:22 03:22 11:05 WBC 20.3 H RBC 3.29 L MCV MCH RDW 15.6 H Seg Neuts % (Manual) 87.0 H Lymphocytes % (Manual) 10.0 L Seg Neutrophils # Man 17.7 H Lymphocytes # (Manual) APTT ABG pH POC ABG pCO2 POC ABG pO2 ABG pO2 ABG HCO3 ABG O2 Saturation ABG Base Excess ABG Hemoglobin Oxyhemoglobin Potassium Chloride Carbon Dioxide BUN 21 H Glucose 129 H POC Glucose 110 H Calcium Phosphorus Magnesium Total Protein Triglycerides 08/31/21 08/31/21 08/31/21 00:10 05:26 05:26 WBC 13.2 H RBC 3.28 L MCV MCH RDW 15.9 H Seg Neuts % (Manual) Lymphocytes % (Manual) Seg Neutrophils # Man Lymphocytes # (Manual) APTT ABG pH POC ABG pCO2 POC ABG pO2 ABG pO2 ABG HCO3 ABG O2 Saturation ABG Base Excess ABG Hemoglobin Oxyhemoglobin Potassium Chloride Carbon Dioxide BUN 23 H Glucose 123 H POC Glucose 138 H Calcium Phosphorus Magnesium Total Protein Triglycerides
[2021-08-31] MEDS: busPIRone 10 MG TAB FEEDTUBE SCH ×2 (10:05→22:19)
[2021-08-31] MEDS: POLYETHYLENE GLYCOL 3350 17 GM POWDER PO SCH (10:05)
[2021-08-31] MEDS: FAMOTIDINE 20 MG TAB FEEDTUBE SCH ×2 (10:05→22:21)
[2021-08-31] MEDS: DOCUSATE SODIUM 100 MG/10 ML ORAL LIQD PO SCH ×2 (10:05→22:19)
[2021-08-31] MEDS: MULTIVITAMIN / MINERAL ORAL LIQUID 15 ML FEEDTUBE SCH (10:05)
[2021-08-31] MEDS: THIAMINE 100 MG TAB FEEDTUBE SCH (10:05)
[2021-08-31] MEDS: SENNOSIDES ORAL LIQD 8.8 MG/5 ML ORAL LIQD PO SCH ×2 (10:06→22:21)
[2021-08-31] MEDS: HEPARIN 5,000 UNIT/1 ML VIAL SUB-Q SCH ×2 (10:06→22:19)
[2021-08-31] MEDS: FOLIC ACID 1 MG TAB FEEDTUBE SCH (10:06)
[2021-08-31] MEDS: SERTRALINE 25 MG TAB FEEDTUBE SCH (10:07)
[2021-08-31] MEDS: LACTULOSE 20 GM/30 ML ORAL LIQD FEEDTUBE SCH ×6 (11:50→22:16)
[2021-08-31] MEDS: FLUCONAZOLE 100 MG TAB FEEDTUBE SCH (11:52)
--- NOTE | 2021-08-31 15:58 | XRay Report ---
ABDOMEN 1 VIEW(S) INDICATION / CLINICAL INFORMATION: pain/vomiting. COMPARISON: None available. FINDINGS: TUBES / LINES: PEG tube. BOWEL GAS PATTERN: Moderate left-sided stool with a large amount of stool at the rectum which is rela tively well formed. ADDITIONAL FINDINGS: No significant additional findings. IMPRESSION: Possible fecal impaction. Signer Name: Levi Urbano MD Signed: 08/31/2021 3:49 PM Workstation Name: [id number]
[2021-09-01] MEDS: SUCRALFATE 1 GM TAB FEEDTUBE SCH ×5 (00:37→23:49)
[2021-09-01] MEDS: INSULIN REGULAR, HUMAN 100 UNITS/1 ML SUB-Q SCH ×5 (00:37→23:41)
[2021-09-01] MEDS: LACTULOSE 20 GM/30 ML ORAL LIQD FEEDTUBE SCH ×5 (00:38→08:16)
[2021-09-01] MEDS: fentaNYL 100 MCG/2 ML INJ IV PRN ×2 (05:52→08:42)
[2021-09-01] MEDS: LEVOTHYROXINE 75 MCG TAB FEEDTUBE SCH (05:55)
[2021-09-01] MEDS ORDERED: MORPHINE 2 MG/1 ML INJ IV PRN (09:33)
[2021-09-01] MEDS: NYSTATIN 500,000 UNIT/5 ML ORAL LIQD PO SCH ×3 (10:43→21:07)
[2021-09-01] MEDS: busPIRone 10 MG TAB FEEDTUBE SCH ×2 (10:44→21:07)
[2021-09-01] MEDS: SENNOSIDES ORAL LIQD 8.8 MG/5 ML ORAL LIQD PO SCH ×2 (10:44→21:08)
[2021-09-01] MEDS: DOCUSATE SODIUM 100 MG/10 ML ORAL LIQD PO SCH ×2 (10:44→21:22)
[2021-09-01] MEDS: FOLIC ACID 1 MG TAB FEEDTUBE SCH (10:44)
[2021-09-01] MEDS: MULTIVITAMIN / MINERAL ORAL LIQUID 15 ML FEEDTUBE SCH (10:44)
[2021-09-01] MEDS: FLUCONAZOLE 100 MG TAB FEEDTUBE SCH (10:44)
[2021-09-01] MEDS: POLYETHYLENE GLYCOL 3350 17 GM POWDER PO SCH (10:44)
[2021-09-01] MEDS: FAMOTIDINE 20 MG TAB FEEDTUBE SCH (10:44)
[2021-09-01] MEDS: THIAMINE 100 MG TAB FEEDTUBE SCH (10:45)
--- NOTE | 2021-09-01 10:48 | Cat Scan Report ---
CT ABDOMEN AND PELVIS WITHOUT CONTRAST INDICATION / CLINICAL INFORMATION: constipation. TECHNIQUE: Axial CT images were obtained through the abdomen and pelvis without IV contrast. All CT scans at this location are performed using CT dose reduction for ALARA by means of automated exposure control. COMPARISON: CT 10/28/2018 FINDINGS: LOWER CHEST: Opacities in the right lower lobe with small pleural effusion. There are mild secretions in the airways. There is a small moderate hiatal hernia. There is a small pericardial effusion. LIVER: No significant abnormality. GALLBLADDER: Cholecystectomy. BILE DUCTS: No significant abnormality. PANCREAS: No significant abnormality. SPLEEN: No significant abnormality. ADRENALS: No significant abnormality. RIGHT KIDNEY / URETER: No significant abnormality. LEFT KIDNEY / URETER: No significant abnormality. STOMACH / SMALL BOWEL: Small moderate hiatal hernia. The percutaneous gastrostomy tube is not located within the stomach but is located within the left rectus muscle and subcutaneous tissues. COLON: Mild colonic stool burden. Mild diverticulosis without acute inflammation. APPENDIX: Not visualized. PERITONEUM: No free fluid. No free air. No fluid collection. LYMPH NODES: No significant adenopathy. AORTA / ARTERIES: Mild atherosclerotic calcification without acute abnormality. IVC / VEINS: No significant abnormality. URINARY BLADDER: No significant abnormality. REPRODUCTIVE ORGANS: Uterus absent. ADDITIONAL FINDINGS: None. SKELETAL SYSTEM: Laminectomy changes of the lumbar spine. No aggressive osseous lesion. Levoscoliosis of the thoracolumbar spine. Multilevel advanced degenerative changes of the lumbar spine. IMPRESSION: 1. The percutaneous gastrostomy tube is not located in the stomach but is displaced into the anterior soft tissues. 2. Mild colonic stool burden with diverticulosis but no acute inflammation. 3. Aspiration-related pneumonitis/pneumonia in the right lower lobe with a small to moderate size hia johnson hernia. 4. Additional incidental findings as above. Signer Name: Earnest Sprague MD Signed: 09/01/2021 10:43 AM Workstation Name: [id number]
--- NOTE | 2021-09-01 10:54 | Cat Scan Report ---
CT neck wo con INDICATION / CLINICAL INFORMATION: 76 years Female; bleeding around trach. TECHNIQUE: Contiguous thin cut axial images obtained through the neck following IV contrast. Sagittal and cunha l reconstructions performed by the technologist. All CT scans at this location are performed using CT dose reduction for ALARA by means of automated exposure control. COMPARISON: None available. FINDINGS: There is presence of tracheostomy tube which appears appropriately positioned. There is ass ociated decompression of the upper airway at. No significant focal inflammatory changes are seen invo lving superficial soft tissues at the level the tracheostomy tube and correlation would be needed reg arding emergent presentation and history of "bleeding around trach". MUCOSAL SPACE: There is relative prominence of the nasopharyngeal soft tissues for patient this age w hich is nonspecific though may reflect lymphoid hypertrophy at. The upper airway is decompressed rela danilo to the more distal tracheostomy tube as noted above. The epiglottis appears appropriate in size. LYMPH NODES: There are few scattered cervical lymph nodes which are nonspecific though most likely re active. SALIVARY GLANDS: The visualized parotid and submandibular glands demonstrate fairly symmetric attenua tion without calcification. THYROID GLAND: There is notable prominence of the thyroid gland which appears greater on the right wi th superior extension to the level the hyoid bone. The findings at result in mild degree of mass fact and displacement of the trachea as well as the carotid sheath structures. No definitive dominant foc al lesions are appreciated. PARANASAL SINUSES: There is near complete opacification of the right sphenoid sinus with notable opac ification of the left with presence of air-fluid level. There is also focal opacification of the post erior right ethmoid air cells. Normal mucosal thickening is noted within the right maxillary sinus. SPINE: There are multilevel degenerative changes involving cervical spine. VASCULAR STRUCTURES: As above, the thyroid goiter results in mild displacement of the carotid sheath structures bilaterally. Otherwise, the vascular structures are grossly unremarkable on this noncontra st study. IMPRESSION: 1. There is presence of endotracheal tube as detailed above which appears appropriately position. Cor relation would be needed given the emergent presentation and history of "bleeding around trach". 2. There is enlargement of the thyroid gland compatible with goiter, also a described above. 3. There is sinus inflammatory disease, most notably involving the sphenoid sinuses as described. Signer Name: Ronnie Rodriguez MD Signed: 09/01/2021 10:50 AM Workstation Name: [id number]
[2021-09-01] MEDS ORDERED: VANCOMYCIN 1,000 MG in SODIUM CHLORIDE 0.9% 500 ML 500 ML IV ONE (11:34)
--- NOTE | 2021-09-01 11:36 | Consultation ---
History of Present Illness - Reason for Consult Consult date: 09/01/21 Pneumonia Requesting physician: RAQUEL ISAACS - History of Present Illness The patient is a 76-year-old female with depression, hypothyroidism, HTN was admitted on 08/19/2021 with angioedema reportedly due to amlodipine. She was seen in the ER, intubated. She was extubated on 08/25/2021, developed stridor, was reintubated on 08/26/2021 and subsequently underwent tracheostomy and PEG tube placement. Spiked a temperature of 101.2 F for which additional work-up has been obtained. CT abdomen and pelvis without contrast revealed a displaced PEG tube as well as right lower lobe pneumonia. Infectious diseases was consulted for additional evaluation. Awake, on the vent. Review of Systems: Limited due to vent Past History Past Medical History: hypertension, hypothyroidism, other (History of psychiatric treatment) Past Surgical History: cholecystectomy (Right tibia right ankle surgery), Other Social history: no significant social history Family history: hypertension Medications and Allergies Allergies Allergy/AdvReac Type Severity Reaction Status Date / Time codeine Allergy Swelling Verified 12/02/14 05:36 lisinopril Allergy Angioedema Verified 08/25/21 11:31 penicillin Allergy Swelling Verified 12/02/14 05:36 Home Medications Medication Instructions Recorded Confirmed Last Taken Type Albuterol Mdi (or & Nicu Only) 1 puff IH TID PRN #1 inha 04/07/18 01/25/20 Unknown Rx [ProAir HFA Inhaler] AtorvaSTATin 10 mg PO QHS #30 tablet 04/07/18 01/25/20 Unknown Rx Folic Acid [Folvite] 1 mg PO QDAY #30 tablet 04/07/18 01/25/20 Unknown Rx Levothyroxine [Synthroid] 150 mcg PO DAILY@0600 #30 tablet 04/07/18 01/20/20 Unknown Rx Multivitamin Tab [Multiple Vitamin 1 each PO QDAY 30 Days tablet 04/07/18 01/25/20 Unknown Rx TAB (Theragran)] Sertraline [Zoloft] 25 mg PO QDAY 30 Days tablet 04/07/18 01/25/20 Unknown Rx Thiamine [Vitamin B-1] 100 mg PO QDAY #30 tablet 04/07/18 01/25/20 Unknown Rx ALPRAZolam [Xanax TAB] 0.25 mg PO BID PRN #10 tab 10/28/18 01/25/20 Unknown Rx Dicyclomine [Bentyl] 20 mg PO QID #10 tablet 10/28/18 01/25/20 Unknown Rx Metoclopramide HCl [Reglan TAB] 5 mg PO TIDAC #10 tablet 10/28/18 01/20/20 Unknown Rx Potassium Chloride [K-Dur] 20 meq PO BID #6 tab 10/28/18 01/25/20 Unknown Rx busPIRone [Buspar] 10 mg PO BID 01/20/20 01/20/20 Unknown History Pantoprazole [Protonix TAB] 40 mg PO BID #60 tablet 01/25/20 Unknown Rx Sucralfate [Carafate] 1 gm PO Q6HR #90 tablet 01/25/20 Unknown Rx Cyclobenzaprine [Flexeril] 10 mg PO TID PRN #12 tablet 09/17/20 Unknown Rx Ibuprofen [Motrin 600 MG tab] 600 mg PO Q8H PRN #20 tablet 09/17/20 Unknown Rx traMADoL [Ultram 50 MG tab] 50 mg PO Q6HR PRN #12 tablet 09/17/20 Unknown Rx Active Meds: Active Medications Acetaminophen (Acetaminophen 325 Mg Tab) 650 mg FEEDTUBE Q4H PRN PRN Reason: Fever >100.5/SAEED/MILD PAIN 1-3 Last Admin: 08/30/21 21:08 Dose: 650 mg Albuterol (Albuterol 2.5 Mg/3 Ml Nebu) 2.5 mg IH Q3HRT PRN PRN Reason: Shortness Of Breath Alprazolam (Alprazolam 0.25 Mg Tab) 0.25 mg FEEDTUBE BID PRN PRN Reason: Anxiety Last Admin: 08/29/21 22:34 Dose: 0.25 mg Atorvastatin Calcium (Atorvastatin 10 Mg Tab) 10 mg FEEDTUBE QHS WARD Last Admin: 08/31/21 22:18 Dose: 10 mg Buspirone HCl (Buspirone 10 Mg Tab) 10 mg FEEDTUBE BID [facility] Last Admin: 09/01/21 10:44 Dose: Not Given Dextrose (Dextrose 50% In Water (25gm) 50 Ml Syringe) 50 ml IV Q30MIN PRN; Protocol PRN Reason: Hypoglycemia Docusate Sodium (Docusate Sodium 100 Mg/10 Ml Oral Liqd) 100 mg PO BID [facility] Last Admin: 09/01/21 10:44 Dose: Not Given Famotidine (Famotidine 20 Mg Tab) 20 mg FEEDTUBE BID [facility] Last Admin: 09/01/21 10:44 Dose: Not Given Fluconazole (Fluconazole 100 Mg Tab) 100 mg FEEDTUBE QDAY WARD; Protocol Stop: 09/04/21 10:01 Last Admin: 09/01/21 10:44 Dose: Not Given Folic Acid (Folic Acid 1 Mg Tab) 1 mg FEEDTUBE QDAY [facility] Last Admin: 09/01/21 10:44 Dose: Not Given Haloperidol Lactate (Haloperidol Lactate 5 Mg/1 Ml Inj) 5 mg IV Q6H PRN PRN Reason: Agitation Heparin Sodium (Porcine) (Heparin 5,000 Unit/1 Ml Vial) 5,000 unit SUB-Q Q12HR [facility] Last Admin: 08/31/21 22:19 Dose: 5,000 unit Hydralazine HCl (Hydralazine 20 Mg/1 Ml Inj) 10 mg IV Q6H PRN PRN Reason: SBP >/=160; DBP >/=100 Last Admin: 08/24/21 18:09 Dose: 10 mg NORepinephrine/NS 8 MG-250 ML (Norepinephrine/Ns 8 Mg-250 Ml (Double Conc)) 8 mg in 250 mls @ 3.75 mls/hr IV TITRATE WARD; Protocol Last Admin: 08/25/21 14:30 Dose: 2 mcg/min, 3.75 mls/hr Aztreonam (Azactam/Ns 2 Gm/100 Ml) 2 gm in 100 mls @ 100 mls/hr IV Q8H WARD; Protocol Levofloxacin/Dextrose (Levaquin 750mg/150ml) 750 mg in 150 mls @ 100 mls/hr IV Q24H [facility]; Protocol Vancomycin HCl 1,000 mg/ (Sodium Chloride) 520 mls @ 333 mls/hr IV ONCE ONE; Protocol Stop: 09/01/21 13:04 Insulin Human Regular (Insulin Regular, Human 100 Units/1 Ml) 0 units SUB-Q Q6H [facility]; Protocol Last Admin: 09/01/21 05:56 Dose: Not Given Lactulose (Lactulose 20 Gm/30 Ml Oral Liqd) 20 gm FEEDTUBE Q2H [facility] Last Admin: 09/01/21 08:16 Dose: Not Given Levothyroxine Sodium (Levothyroxine 75 Mcg Tab) 150 mcg FEEDTUBE DAILY@0600 [facility] Last Admin: 09/01/21 05:55 Dose: 150 mcg Nystatin (Nystatin 500,000 Unit/5 Ml Oral Liqd) 100,000 unit PO TID [facility] Stop: 09/03/21 20:01 Last Admin: 09/01/21 10:43 Dose: Not Given Ondansetron HCl (Ondansetron 4 Mg/2 Ml Inj) 4 mg IV Q8H PRN PRN Reason: Nausea And Vomiting Polyethylene Glycol (Polyethylene Glycol 3350 17 Gm Powder) 17 gm PO QDAY [facility] Last Admin: 09/01/21 10:44 Dose: Not Given Senna (Sennosides Oral Liqd 8.8 Mg/5 Ml Oral Liqd) 17.6 mg PO Q12HR [facility] Last Admin: 09/01/21 10:44 Dose: Not Given Sertraline HCl (Sertraline 25 Mg Tab) 25 mg FEEDTUBE QDAY [facility] Last Admin: 08/31/21 10:07 Dose: 25 mg Sodium Chloride (Sodium Chloride 0.9% 10 Ml Flush Syringe) 10 ml IV BID [facility] Last Admin: 09/01/21 10:45 Dose: 10 ml Sodium Chloride (Sodium Chloride 0.9% 10 Ml Flush Syringe) 10 ml IV PRN PRN PRN Reason: LINE FLUSH Sucralfate (Sucralfate 1 Gm Tab) 1 gm FEEDTUBE Q6HR [facility] Last Admin: 09/01/21 05:56 Dose: 1 gm Thiamine HCl (Thiamine 100 Mg Tab) 100 mg FEEDTUBE QDAY [facility] Last Admin: 09/01/21 10:45 Dose: Not Given Tramadol HCl (Tramadol 50 Mg Tab) 50 mg FEEDTUBE Q6H PRN PRN Reason: Pain, Moderate (4-6) Last Admin: 08/31/21 01:49 Dose: 50 mg Physical Examination - Physical Exam Narrative exam: Physical Exam: Constitutional: sedated, trached, on the vent Head, Ears, Nose: Normocephalic, atraumatic. External ears, nose normal Eyes: Conjunctivae/corneas clear. No icterus. No ptosis. Neck: Trach + Cardiovascular: S1, S2 + Respiratory: AE fair bilaterally GI: Soft, G-tube present Musculoskeletal: No pedal edema, no cyanosis. Skin: No rash or abscess Hem/Lymphatic: No palpable cervical or supraclavicular nodes. No lymphangitis Psych: no agitation Neurological: sedated, on the vent, exam limited - Constitutional Vitals: Vital Signs Temp Pulse Resp BP Pulse Ox 98.9 F 107 H 21 116/66 98 09/01/21 11:23 09/01/21 11:00 09/01/21 11:00 09/01/21 11:00 09/01/21 11:00 Temperature -Last 24 Hours Temperature 98.9 F Temperature 98.0 F Temperature 100.2 F Temperature 99.2 F Temperature 99.8 F Temperature 99.8 F Temperature 100.5 F Results - Labs CBC & Chem 7: 08/31/21 05:26 08/31/21 05:26 Labs: Abnormal lab results 08/31/21 08/31/21 09/01/21 Range/Units 17:19 23:29 05:43 POC Glucose 152 H 121 H 119 H (70-105) mg/dL 09/01/21 Range/Units 11:05 POC Glucose 113 H (70-105) mg/dL - Imaging and Cardiology Chest x-ray: report reviewed CT scan - abdomen: report reviewed, image reviewed (lower lung cuts with RLL pneumonia) Assessment and Plan Cultures: 08/29/2021 blood culture: No growth 08/29/2021 tracheal aspirate culture: Usual respiratory david 09/01/2021 blood culture: In process A/P: 76-year-old female with depression, hypothyroidism, HTN was admitted on 08/19/2021 with angioedema reportedly due to amlodipine. She was seen in the ER, intubated. She was extubated on 08/25/2021, developed stridor, was reintubated on 08/26/2021 and subsequently underwent tracheostomy and PEG tube placement: #Sepsis/SIRS, secondary to right lower lobe pneumonia, dislodged PEG tube: minimal pneumonia #Angioedema #Acute respiratory failure #Penicillin allergy Recs: Given documented penicillin allergy and patient being admitted for angioedema, avoid beta-lactam antibiotics Minimal infiltrate in RLL. For now, empiric aztreonam, levofloxacin and vancomycin Follow-up sputum culture MRSA nasal PCR ordered, discontinue vancomycin if negative Checking CRP, procalcitonin, if low, would stop abx Kushal Ruvalcaba MD, FACP, [facility] O: [phone] F: [phone] C: [phone]
[2021-09-01] MEDS ORDERED: AZTREONAM/NS 2 GM/100 ML 2 GM/100 ML VIAL IV SCH ×2 (12:00→15:00)
[2021-09-01] MEDS ORDERED: VANCOMYCIN PHARMACY TO DOSE IV SCH (12:00)
[2021-09-01] MEDS: SERTRALINE 25 MG TAB FEEDTUBE SCH (12:20)
[2021-09-01 12:23] LABS: Hematocrit 33.2 % (30.3-42.9); Hemoglobin 10.8 gm/dl (10.1-14.3); Mean Corpuscular HGB Conc 33 % (30-34); Mean Corpuscular Volume 98 fl (79-97); Platelet Count 257 K/mm3 (140-440); Red Blood Count 3.38 M/mm3 (3.65-5.03)
[2021-09-01] MEDS: HEPARIN 5,000 UNIT/1 ML VIAL SUB-Q SCH ×2 (12:26→21:22)
[2021-09-01] MEDS: VANCOMYCIN 1,250 MG in SODIUM CHLORIDE 0.9% 250ML 250 ML IV SCH (12:43)
[2021-09-01 13:04] LABS: Blood Urea Nitrogen 18 mg/dL (7-17); Calcium 9.9 mg/dL (8.4-10.2); Hemolysis Index 2
[2021-09-01 13:05] LABS: BUN/Creatinine Ratio 26
--- NOTE | 2021-09-01 13:09 | Progress Note ---
Assessment and Plan 76 y/o female with acute respiratory failure secondary to angioedema 09/01/21: Hold on any weaning today. Hold heparin for 24 hours. Surgery spoke with IR, they will attempt to replace peg tube. Changed as many meds to IV as possible. ID has now been consulted so will defer all abx therapy to them. Guarded prognosis, family not at bedside this am. 08/31/21: Dropped PSV to 10/6, if tolerates then in a few hours place on T- piece. Rest on PSV tonight. Then 24 hours of T-piece tomorrow. Most likely transfer out of unit on . Will discuss urine situation with nursing staff. Voided and has had no issues so will not place lewis. Spiked a temp. Repeat cultures with next temperature spike and will start on Diflucan em pirically for oral candidiasis. 08/30/21: Start bladder training q4 hours. All cultures negative thus far and no further temps. Given Mag Citrate today, if no BM in the next 24, will start some scheduled lactulose. Continue PSV as tolerated. 08/29/21: Agree with hernandez culture, hold on abx, remove lewis. Repeat CXR. Per nursing has not had bowel movement in at least 4 days. Check KUB. PSV trials to start soon 08/28/21: would like to get patient off of continuous sedation so will scheduled tramadol therapy with hopes of weaning Fent Drip. Will order fent 50Q2 PRN pain to help with this as well. Will likely need to be placed on bowel regimen to prevent constipation. Once off continuous drips, can start PSV trials. 08/27/21: Start using peg. Continue PRN fent pushes and will add PRN tramadol as well. Wean sedation off. Can start PSV trials as early as tomorrow. 1. Agree with IV steroids 2. Suggest adding scheduled benadryl and pepcid 3. If swelling does not improve in the next 24-48 hours, suggest a trial of FFP 4. Wean FiO2 for sats > 88% CCT 31 minutes Subjective Date of service: 09/01/21 Interval history: Did not tolerate T-piece on yesterday. Now back on full vent support. had bleeding around trach site this am and peg tube is displaced. Surgery aware and seeing the patient now. Objective Vital Signs - 12hr 09/01/21 09/01/21 09/01/21 02:00 03:00 03:35 Temperature Pulse Rate 99 H 100 H Pulse Rate [ From Monitor] Respiratory 21 20 Rate Blood Pressure 120/63 127/83 113/72 O2 Sat by Pulse 97 95 99 Oximetry O2 Sat by Pulse Oximetry [ Assessment] 09/01/21 09/01/21 09/01/21 04:00 05:00 06:00 Temperature 100.2 F H Pulse Rate 104 H 102 H 96 H Pulse Rate [ 116 H From Monitor] Respiratory 22 31 H 20 Rate Blood Pressure 113/77 110/77 128/86 O2 Sat by Pulse 98 99 97 Oximetry O2 Sat by Pulse Oximetry [ Assessment] 09/01/21 09/01/21 09/01/21 07:00 07:11 08:00 Temperature 98.0 F Pulse Rate 101 H 103 H Pulse Rate [ 103 H From Monitor] Respiratory 21 25 H Rate Blood Pressure 123/85 120/90 O2 Sat by Pulse 98 100 Oximetry O2 Sat by Pulse Oximetry [ Assessment] 09/01/21 09/01/21 09/01/21 08:22 08:50 09:00 Temperature Pulse Rate 109 H 104 H Pulse Rate [ From Monitor] Respiratory 20 Rate Blood Pressure 120/90 142/98 O2 Sat by Pulse 99 98 Oximetry O2 Sat by Pulse 100 Oximetry [ Assessment] 09/01/21 09/01/21 09/01/21 10:11 11:00 11:23 Temperature 98.9 F Pulse Rate 107 H Pulse Rate [ From Monitor] Respiratory 21 Rate Blood Pressure 142/98 116/66 O2 Sat by Pulse 100 98 Oximetry O2 Sat by Pulse Oximetry [ Assessment] 09/01/21 09/01/21 12:00 12:16 Temperature Pulse Rate 100 H 99 H Pulse Rate [ From Monitor] Respiratory 20 Rate Blood Pressure 111/74 111/74 O2 Sat by Pulse 100 99 Oximetry O2 Sat by Pulse Oximetry [ Assessment] Constitutional: no acute distress, other (Sedated) ENT: other (orally intubated, macroglossia) Neck: supple, no lymphadenopathy Effort: other (Supported on ventilator) Ascultation: Bilateral: clear Percussion: Bilateral: not dull Cardiovascular: regular rate and rhythm Gastrointestinal: normoactive bowel sounds Extremities: no cyanosis, no edema, pink and warm Neurologic: other (Sedated) Psychiatric: other (Sedated) CBC and BMP: 09/01/21 11:42 09/01/21 11:42 ABG, PT/INR, D-dimer: ABG ABG pH 7.516 pH Units (7.350-7.450) H 08/27/21 03:56 POC ABG pCO2 30.1 mmHg (32.0-48.0) L 08/22/21 10:16 ABG pCO2 34.4 mm Hg 08/27/21 03:56 POC ABG pO2 109.5 mmHg (83-108) H 08/22/21 10:16 ABG pO2 117.0 mm Hg (80.0-90.0) H 08/27/21 03:56 POC ABG HCO3 23.5 08/22/21 10:16 ABG O2 Saturation 98.4 % (95.0-99.0) 08/27/21 03:56 PT/INR, D-dimer PT 12.8 Sec. (12.2-14.9) 08/19/21 02:24 INR 0.87 (0.87-1.13) 08/19/21 02:24 Abnormal lab findings: Abnormal Labs 08/19/21 08/19/21 08/19/21 02:24 02:24 02:24 WBC 13.9 H RBC MCV 98 H MCH 33 H RDW 15.7 H Seg Neuts % (Manual) Lymphocytes % (Manual) 52.0 H Seg Neutrophils # Man Lymphocytes # (Manual) 7.2 H APTT 20.0 L ABG pH POC ABG pCO2 POC ABG pO2 ABG pO2 ABG HCO3 ABG O2 Saturation ABG Base Excess ABG Hemoglobin Oxyhemoglobin Potassium 3.3 L Chloride Carbon Dioxide 20 L BUN Glucose 143 H POC Glucose Calcium Phosphorus Magnesium Total Protein 8.3 H Triglycerides 08/19/21 08/19/21 08/19/21 06:15 10:20 11:10 WBC RBC MCV MCH RDW Seg Neuts % (Manual) Lymphocytes % (Manual) Seg Neutrophils # Man Lymphocytes # (Manual) APTT ABG pH 7.465 H 7.503 H POC ABG pCO2 POC ABG pO2 ABG pO2 177.7 H 90.5 H ABG HCO3 ABG O2 Saturation 99.2 H ABG Base Excess ABG Hemoglobin Oxyhemoglobin Potassium Chloride Carbon Dioxide BUN Glucose POC Glucose 171 H Calcium Phosphorus Magnesium Total Protein Triglycerides 08/19/21 08/20/21 08/20/21 16:33 00:03 04:25 WBC RBC MCV 98 H MCH 33 H RDW 15.9 H Seg Neuts % (Manual) 83.0 H Lymphocytes % (Manual) Seg Neutrophils # Man Lymphocytes # (Manual) APTT ABG pH POC ABG pCO2 POC ABG pO2 ABG pO2 ABG HCO3 ABG O2 Saturation ABG Base Excess ABG Hemoglobin Oxyhemoglobin Potassium Chloride Carbon Dioxide BUN Glucose POC Glucose 179 H 133 H Calcium Phosphorus Magnesium Total Protein Triglycerides 08/20/21 08/20/21 08/20/21 04:25 04:30 05:39 WBC RBC MCV MCH RDW Seg Neuts % (Manual) Lymphocytes % (Manual) Seg Neutrophils # Man Lymphocytes # (Manual) APTT ABG pH POC ABG pCO2 POC ABG pO2 ABG pO2 95.5 H ABG HCO3 ABG O2 Saturation ABG Base Excess -2.2 L ABG Hemoglobin Oxyhemoglobin Potassium Chloride Carbon Dioxide 21 L BUN Glucose 143 H POC Glucose 168 H Calcium 8.2 L Phosphorus Magnesium Total Protein Triglycerides 08/20/21 08/20/21 08/21/21 12:04 16:38 00:12 WBC RBC MCV MCH RDW Seg Neuts % (Manual) Lymphocytes % (Manual) Seg Neutrophils # Man Lymphocytes # (Manual) APTT ABG pH POC ABG pCO2 POC ABG pO2 ABG pO2 ABG HCO3 ABG O2 Saturation ABG Base Excess ABG Hemoglobin Oxyhemoglobin Potassium Chloride Carbon Dioxide BUN Glucose POC Glucose 151 H 135 H 123 H Calcium Phosphorus Magnesium Total Protein Triglycerides 08/21/21 08/21/21 08/21/21 04:58 04:58 04:59 WBC RBC 3.64 L MCV 100 H MCH RDW 16.4 H Seg Neuts % (Manual) Lymphocytes % (Manual) Seg Neutrophils # Man Lymphocytes # (Manual) APTT ABG pH POC ABG pCO2 POC ABG pO2 ABG pO2 ABG HCO3 ABG O2 Saturation ABG Base Excess -2.6 L ABG Hemoglobin 11.6 L Oxyhemoglobin Potassium 3.5 L Chloride 109.5 H Carbon Dioxide 19 L BUN Glucose 159 H POC Glucose Calcium 8.3 L Phosphorus Magnesium Total Protein Triglycerides 08/21/21 08/21/21 08/21/21 05:22 11:21 16:29 WBC RBC MCV MCH RDW Seg Neuts % (Manual) Lymphocytes % (Manual) Seg Neutrophils # Man Lymphocytes # (Manual) APTT ABG pH POC ABG pCO2 POC ABG pO2 ABG pO2 ABG HCO3 ABG O2 Saturation ABG Base Excess ABG Hemoglobin Oxyhemoglobin Potassium Chloride Carbon Dioxide BUN Glucose POC Glucose 143 H 133 H 122 H Calcium Phosphorus Magnesium Total Protein Triglycerides 08/22/21 08/22/21 08/22/21 00:03 03:54 03:54 WBC RBC 3.53 L MCV 100 H MCH 33 H RDW 16.7 H Seg Neuts % (Manual) Lymphocytes % (Manual) Seg Neutrophils # Man Lymphocytes # (Manual) APTT ABG pH POC ABG pCO2 POC ABG pO2 ABG pO2 ABG HCO3 ABG O2 Saturation ABG Base Excess ABG Hemoglobin Oxyhemoglobin Potassium Chloride 107.5 H Carbon Dioxide BUN Glucose 123 H POC Glucose 132 H Calcium Phosphorus Magnesium Total Protein Triglycerides 08/22/21 08/22/21 08/22/21 04:40 06:08 10:16 WBC RBC MCV MCH RDW Seg Neuts % (Manual) Lymphocytes % (Manual) Seg Neutrophils # Man Lymphocytes # (Manual) APTT ABG pH 7.454 H 7.511 H POC ABG pCO2 30.1 L POC ABG pO2 109.5 H ABG pO2 109.8 H ABG HCO3 ABG O2 Saturation ABG Base Excess ABG Hemoglobin Oxyhemoglobin Potassium Chloride Carbon Dioxide BUN Glucose POC Glucose 137 H Calcium Phosphorus Magnesium Total Protein Triglycerides 08/22/21 08/22/21 08/22/21 10:27 10:27 11:13 WBC RBC MCV 99 H MCH RDW 16.6 H Seg Neuts % (Manual) Lymphocytes % (Manual) Seg Neutrophils # Man Lymphocytes # (Manual) APTT ABG pH POC ABG pCO2 POC ABG pO2 ABG pO2 ABG HCO3 ABG O2 Saturation ABG Base Excess ABG Hemoglobin Oxyhemoglobin Potassium Chloride Carbon Dioxide BUN Glucose 129 H POC Glucose 125 H Calcium Phosphorus Magnesium Total Protein Triglycerides 08/22/21 08/23/21 08/23/21 23:39 04:11 04:11 WBC RBC MCV 98 H MCH 33 H RDW 16.1 H Seg Neuts % (Manual) Lymphocytes % (Manual) Seg Neutrophils # Man Lymphocytes # (Manual) APTT ABG pH POC ABG pCO2 POC ABG pO2 ABG pO2 ABG HCO3 ABG O2 Saturation ABG Base Excess ABG Hemoglobin Oxyhemoglobin Potassium Chloride Carbon Dioxide BUN Glucose 148 H POC Glucose 117 H Calcium Phosphorus Magnesium Total Protein Triglycerides 08/23/21 08/23/21 08/23/21 05:32 11:02 18:04 WBC RBC MCV MCH RDW Seg Neuts % (Manual) Lymphocytes % (Manual) Seg Neutrophils # Man Lymphocytes # (Manual) APTT ABG pH POC ABG pCO2 POC ABG pO2 ABG pO2 ABG HCO3 ABG O2 Saturation ABG Base Excess ABG Hemoglobin Oxyhemoglobin Potassium Chloride Carbon Dioxide BUN Glucose POC Glucose 173 H 146 H 129 H Calcium Phosphorus Magnesium Total Protein Triglycerides 08/24/21 08/24/21 08/24/21 00:27 05:20 06:00 WBC RBC MCV MCH RDW Seg Neuts % (Manual) Lymphocytes % (Manual) Seg Neutrophils # Man Lymphocytes # (Manual) APTT ABG pH 7.481 H POC ABG pCO2 POC ABG pO2 ABG pO2 95.8 H ABG HCO3 29.8 H ABG O2 Saturation ABG Base Excess 5.8 H ABG Hemoglobin Oxyhemoglobin Potassium Chloride Carbon Dioxide BUN Glucose POC Glucose 146 H 159 H Calcium Phosphorus Magnesium Total Protein Triglycerides 08/24/21 08/25/21 08/25/21 11:37 05:13 11:38 WBC RBC MCV MCH RDW Seg Neuts % (Manual) Lymphocytes % (Manual) Seg Neutrophils # Man Lymphocytes # (Manual) APTT ABG pH POC ABG pCO2 POC ABG pO2 ABG pO2 ABG HCO3 ABG O2 Saturation ABG Base Excess ABG Hemoglobin Oxyhemoglobin Potassium Chloride Carbon Dioxide BUN Glucose POC Glucose 154 H 121 H 135 H Calcium Phosphorus Magnesium Total Protein Triglycerides 08/25/21 08/25/21 08/26/21 16:00 17:12 00:04 WBC RBC MCV MCH RDW Seg Neuts % (Manual) Lymphocytes % (Manual) Seg Neutrophils # Man Lymphocytes # (Manual) APTT ABG pH POC ABG pCO2 POC ABG pO2 ABG pO2 78.3 L ABG HCO3 32.7 H ABG O2 Saturation ABG Base Excess 6.3 H ABG Hemoglobin 11.0 L Oxyhemoglobin 93.9 L Potassium Chloride Carbon Dioxide BUN Glucose POC Glucose 179 H 140 H Calcium Phosphorus Magnesium Total Protein Triglycerides 08/26/21 08/26/21 08/26/21 04:22 04:59 04:59 WBC 12.9 H RBC 3.54 L MCV MCH RDW 15.6 H Seg Neuts % (Manual) Lymphocytes % (Manual) Seg Neutrophils # Man Lymphocytes # (Manual) APTT ABG pH 7.533 H POC ABG pCO2 POC ABG pO2 ABG pO2 76.9 L ABG HCO3 29.2 H ABG O2 Saturation ABG Base Excess 6.4 H ABG Hemoglobin 11.6 L Oxyhemoglobin Potassium 3.5 L Chloride Carbon Dioxide BUN 28 H Glucose 139 H POC Glucose Calcium Phosphorus Magnesium Total Protein Triglycerides 08/26/21 08/26/21 08/26/21 05:34 11:21 16:52 WBC RBC MCV MCH RDW Seg Neuts % (Manual) Lymphocytes % (Manual) Seg Neutrophils # Man Lymphocytes # (Manual) APTT ABG pH POC ABG pCO2 POC ABG pO2 ABG pO2 ABG HCO3 ABG O2 Saturation ABG Base Excess ABG Hemoglobin Oxyhemoglobin Potassium Chloride Carbon Dioxide BUN Glucose POC Glucose 152 H 145 H 151 H Calcium Phosphorus Magnesium Total Protein Triglycerides 08/27/21 08/27/21 08/27/21 03:56 04:25 04:25 WBC 12.4 H RBC 3.39 L MCV 98 H MCH RDW 15.8 H Seg Neuts % (Manual) Lymphocytes % (Manual) Seg Neutrophils # Man Lymphocytes # (Manual) APTT ABG pH 7.516 H POC ABG pCO2 POC ABG pO2 ABG pO2 117.0 H ABG HCO3 27.2 H ABG O2 Saturation ABG Base Excess 4.3 H ABG Hemoglobin 11.1 L Oxyhemoglobin Potassium Chloride Carbon Dioxide BUN 27 H Glucose POC Glucose Calcium Phosphorus 2.10 L Magnesium 2.50 H Total Protein Triglycerides 08/27/21 08/27/21 08/27/21 04:25 17:31 23:37 WBC RBC MCV MCH RDW Seg Neuts % (Manual) Lymphocytes % (Manual) Seg Neutrophils # Man Lymphocytes # (Manual) APTT ABG pH POC ABG pCO2 POC ABG pO2 ABG pO2 ABG HCO3 ABG O2 Saturation ABG Base Excess ABG Hemoglobin Oxyhemoglobin Potassium Chloride Carbon Dioxide BUN Glucose POC Glucose 111 H 122 H Calcium Phosphorus Magnesium Total Protein Triglycerides 200 H 08/28/21 08/28/21 08/28/21 04:11 04:11 05:01 WBC 17.2 H RBC 3.29 L MCV 99 H MCH RDW 16.2 H Seg Neuts % (Manual) Lymphocytes % (Manual) Seg Neutrophils # Man Lymphocytes # (Manual) APTT ABG pH POC ABG pCO2 POC ABG pO2 ABG pO2 ABG HCO3 ABG O2 Saturation ABG Base Excess ABG Hemoglobin Oxyhemoglobin Potassium Chloride 109.2 H Carbon Dioxide BUN 22 H Glucose 137 H POC Glucose 133 H Calcium Phosphorus Magnesium Total Protein Triglycerides 08/28/21 08/28/21 08/29/21 11:18 17:34 00:37 WBC RBC MCV MCH RDW Seg Neuts % (Manual) Lymphocytes % (Manual) Seg Neutrophils # Man Lymphocytes # (Manual) APTT ABG pH POC ABG pCO2 POC ABG pO2 ABG pO2 ABG HCO3 ABG O2 Saturation ABG Base Excess ABG Hemoglobin Oxyhemoglobin Potassium Chloride Carbon Dioxide BUN Glucose POC Glucose 144 H 131 H 125 H Calcium Phosphorus Magnesium Total Protein Triglycerides 08/29/21 08/29/21 08/29/21 04:12 04:12 06:17 WBC 22.7 H RBC 3.35 L MCV 98 H MCH RDW 16.0 H Seg Neuts % (Manual) Lymphocytes % (Manual) Seg Neutrophils # Man Lymphocytes # (Manual) APTT ABG pH POC ABG pCO2 POC ABG pO2 ABG pO2 ABG HCO3 ABG O2 Saturation ABG Base Excess ABG Hemoglobin Oxyhemoglobin Potassium Chloride Carbon Dioxide BUN 19 H Glucose 121 H POC Glucose 117 H Calcium Phosphorus Magnesium Total Protein Triglycerides 08/29/21 08/29/21 08/30/21 11:54 18:00 00:17 WBC RBC MCV MCH RDW Seg Neuts % (Manual) Lymphocytes % (Manual) Seg Neutrophils # Man Lymphocytes # (Manual) APTT ABG pH POC ABG pCO2 POC ABG pO2 ABG pO2 ABG HCO3 ABG O2 Saturation ABG Base Excess ABG Hemoglobin Oxyhemoglobin Potassium Chloride Carbon Dioxide BUN Glucose POC Glucose 123 H 117 H 115 H Calcium Phosphorus Magnesium Total Protein Triglycerides 08/30/21 08/30/21 08/30/21 03:22 03:22 11:05 WBC 20.3 H RBC 3.29 L MCV MCH RDW 15.6 H Seg Neuts % (Manual) 87.0 H Lymphocytes % (Manual) 10.0 L Seg Neutrophils # Man 17.7 H Lymphocytes # (Manual) APTT ABG pH POC ABG pCO2 POC ABG pO2 ABG pO2 ABG HCO3 ABG O2 Saturation ABG Base Excess ABG Hemoglobin Oxyhemoglobin Potassium Chloride Carbon Dioxide BUN 21 H Glucose 129 H POC Glucose 110 H Calcium Phosphorus Magnesium Total Protein Triglycerides 08/31/21 08/31/21 08/31/21 00:10 05:26 05:26 WBC 13.2 H RBC 3.28 L MCV MCH RDW 15.9 H Seg Neuts % (Manual) Lymphocytes % (Manual) Seg Neutrophils # Man Lymphocytes # (Manual) APTT ABG pH POC ABG pCO2 POC ABG pO2 ABG pO2 ABG HCO3 ABG O2 Saturation ABG Base Excess ABG Hemoglobin Oxyhemoglobin Potassium Chloride Carbon Dioxide BUN 23 H Glucose 123 H POC Glucose 138 H Calcium Phosphorus Magnesium Total Protein Triglycerides 08/31/21 08/31/21 08/31/21 06:13 11:27 17:19 WBC RBC MCV MCH RDW Seg Neuts % (Manual) Lymphocytes % (Manual) Seg Neutrophils # Man Lymphocytes # (Manual) APTT ABG pH POC ABG pCO2 POC ABG pO2 ABG pO2 ABG HCO3 ABG O2 Saturation ABG Base Excess ABG Hemoglobin Oxyhemoglobin Potassium Chloride Carbon Dioxide BUN Glucose POC Glucose 135 H 149 H 152 H Calcium Phosphorus Magnesium Total Protein Triglycerides 08/31/21 09/01/21 09/01/21 23:29 05:43 11:05 WBC RBC MCV MCH RDW Seg Neuts % (Manual) Lymphocytes % (Manual) Seg Neutrophils # Man Lymphocytes # (Manual) APTT ABG pH POC ABG pCO2 POC ABG pO2 ABG pO2 ABG HCO3 ABG O2 Saturation ABG Base Excess ABG Hemoglobin Oxyhemoglobin Potassium Chloride Carbon Dioxide BUN Glucose POC Glucose 121 H 119 H 113 H Calcium Phosphorus Magnesium Total Protein Triglycerides 09/01/21 09/01/21 11:42 11:42 WBC 13.0 H RBC 3.38 L MCV 98 H MCH RDW Seg Neuts % (Manual) Lymphocytes % (Manual) Seg Neutrophils # Man Lymphocytes # (Manual) APTT ABG pH POC ABG pCO2 POC ABG pO2 ABG pO2 ABG HCO3 ABG O2 Saturation ABG Base Excess ABG Hemoglobin Oxyhemoglobin Potassium Chloride Carbon Dioxide BUN 18 H Glucose 111 H POC Glucose Calcium Phosphorus Magnesium Total Protein Triglycerides
--- NOTE | 2021-09-01 13:19 | Progress Note ---
<SHITALRAQUELGideon - Last Filed: 09/01/21 15:46> Assessment and Plan Assessment and plan: This is a 76-year-old female with hypertension, depression and hypothyroidism admitted with angioedema and intubated for airway protection Neuro: h/o depression -Restart home thiamine, multivitamin, Zoloft, BuSpar and as needed Xanax -Tramadol prn -Avoid delirium -Reorientation as needed -Maintain sleep-wake cycle -As needed analgesia Cardiac: h/o htn -Blood pressure monitoring per protocol -Hydralazine as needed -resume home antihypertenisve regimen when available and if needed -NS bolus x 1 Liter on 08/20 Respiratory: Acute hypoxic respiratory failure, angioedema -CCM consulted, appreciate recommendations -Intubated in the emergency department on 08/19 with 7.50 ETT at 24 the lips, extubated 08/25 but reintubated shortly after -s/p trach and peg 08/26 -A.m. vent settings: AC Rate 20, TV 450, PEEP 6, 35% FiO2 -See RT notes for titration -VAP bundle -SPO2 monitoring -s/p Benadryl, Pepcid, Solu-Medrol GI: MO -s/p peg 08/26 -24 hours +265 mL -PPI -NTR consulted for tube feedings -BR: Senna,colace, miralax -08/29 suppository, 08/30 mag citrate, 08/31 lactulose q2 -CT abd/pelvis shows misposition of PEG -IR consult by surgery for replacement in IR lab under flouro : Urinary retention -Strict intake and output -Renally dose medications -Avoid nephrotoxic medications -Daily weights -Trend BMP -Lewis reinserted -bladder scan and training ID: PNA vs Pneumocytosis, oral savana -Seen on CT A/P -ID consulted, appreciate recommendations -abx theraoy: nystatin, azteronam, levaquin, vancomycin -f/u blood culture -Monitor WBC and temperature curve Endo: h/o hypothyroidism -continue synthroid -Avoid hypoglycemia -SSI -Accu-Cheks q. 6 Heme: Leukocytosis -Trend CBC -Transfuse hemoglobin less than 7 -Monitor for signs of bleeding -SCDs to BLE while in bed -heparin subq The high probability of a clinically significant, sudden or life threatening deterioration of the [resp] system(s) required my full and direct attention, intervention and personal management. The aggregate critical care time was [60] minutes. This time is in addition to time spent performing reported procedures but includes the following: [x] Data Review and interpretation [x] Patient assessment and monitoring of vital signs [x] Documentation [x] Medication orders and management Disposition Plan: icu Total Time Spent with Patient (Minutes): 60 History Interval history: This is a 76-year-old female with HTN, depression, hypothyroidism who presented to the emergency department on 08/19 via EMS with angioedema reportedly caused by amlodipine however the patient was able to maintain her airway. Per documentation patient was given patient was given 50 mg of IV Benadryl, 0.5 mg epinephrine, 125 mg of IV Solu-Medrol by EMS. At 0235 patient was intubated in the emergency department. Patient was admitted to the hospitalist service with angioedema and mechanical ventilation for airway protection with consults to CCM. Hospital course to date: 08/19: Patient started on tube feedings, potassium repleted, started on Benadryl and propofol for sedation. SSI started. Air leak present today however due to swelling of the tongue we will hold off extubation. CCM plans to try FFP in the a.m. if swelling not better. 08/20: Angioedema slightly better so we will hold off FFP today. Updated son at bedside but he did not know what medication she was taking and states that she has not had angioedema in the past. Patient still remains on Versed and propofol. Was given 500 mL bolus overnight for hypotension and will repeat for hypotension. 08/21: Leak test today at bedside with RT shows no leak and will give FFP today. Tongue looks a bit smaller today but given no leak, CCM will not extubate today. Sedated with propofol and versed. Son at bedside today. 08/22: RT performed leak test in the AM and stated there was a leak noted and placed the patient on CPAP. She was sedated on versed at 4 and propofol at 30 but these are off for CPAP. Will removed lewis. Received FFP yesterday. Angioedema is improved. Leak test performed again with Dr. Bailey and no leak audible. Switched back to AC and sedation restarted 08/23: Remains on the vent and sedated. Cuff leak assessed again today by CCM, still no significant air leak noted. Per CCM keep patient intubated and sedated and continue IV steroids and histamine therapy for now. Fentanyl gtt added, plan to wean off versed for RASS goal of 0 to -1. 08/24: Arousable and appropriate on the vent and on low dose sedation. No cuff leak again today per RT. D/W [facility] plan for CT neck w/o contrast for further eval. If CT neck normal, PSV trial and possible extubation tomorrow. 08/25: S/p extubation this am, audible stridor appreciated. S/p X2 doses of RaceEpi and IV solumedrol X1 dose. Patient currently stable on 4L NC, SPO2 at 94%. Patient is low threshold for re-intubation, case discussed with anesthesia in case of any decompensation. D/w [facility] patient will need a trach if she is reintubated. Plan of care was thoroughly discussed with patient's son at the bedside by the hunting sales associate. All question and concerns were addressed at this time. 08/26: Reintubated yesterday due to stridor. General Surgery consulted, plan for possible trach and PEG today. Hypotension resolved this am most likely due to sedation for intubation, VSS today. Wean SPO2 as tolerated for SPO2 above 90%. Continue to monitor and replete electrolytes as needed. 08/27: s/p Trach and PEG overnight. Patient is stable on the vent this am, sedated on propofol and fentanyl. okay to use PEG-tube per general surgery, resume TF as ordered. PRN Analgesia added for pain control, wean off sedation as tolerated. Plan for possible PSV trial tomorrow. 08/28: Stable on the vent, still on sedation. Schedule tramadol and PRN fentanyl added for pain control, plan to wean sedation as tolerated. Possible PSV trial tomorrow if off sedation. PRN Xanax for anxiety. BR added for constipation. 08/29: Back on propofol from overnight due to increase anxiety. Patient is awake and calm this am, will D/C propofol and use PRN Xanax as needed for anxiety. Continue schedule tramadol and PRN fentanyl for pain control. Patient with increase secretion today, orally and via trach. Patient is also febrile with spike in WBCs, Chest XR ordered and will panculture. Hold off IV abx for now. Will also remove lewis catheter, straight/cath and bladder scan per protocol. 08/30: Ordered mag citrate today as suppositories do not yield any results yesterday, will start bladder training today. Remains afebrile. PSV per RT. 08/31: D/w Dr Jenkins, will attempt t peice trial for 24 hrs. Ultimately dispo for this patient will be SNF if able to tolerate trial. Paged in afternoon regarding projectile vomiting. No residual noted in PEG tube. KUB ordered. Will likely order Mag citrate as patient has not had BM. 09/01: This AM noted to have bleeding from trach site and peg tube noted to be misplaced with brown drainage. Dr. Mays alerted and came to bedside. RT states suture was removed from trach which stopped the bleeding. Neck and Abd/Pelvis CT ordered. Abd CT showed pef displacement and surgery contacted vascular surgery who will take the patient to IR. Stat CBC and BMP obtained. ID consulted re PCN allergy and sputum culture sent re concern for Pseudumonas in trach aspirate. meds changed to iv Hospitalist Physical - Constitutional Vitals: Temp Pulse Resp BP Pulse Ox 98.9 F 99 H 20 111/74 99 09/01/21 11:23 09/01/21 12:16 09/01/21 12:00 09/01/21 12:16 09/01/21 12:16 General appearance: Present: no acute distress, well-nourished, obese - EENT Eyes: Present: PERRL, EOM intact ENT: hearing intact, clear oral mucosa - Neck Neck: Present: normal ROM - Respiratory Respiratory effort: normal Respiratory: bilateral: CTA, diminished - Cardiovascular Rhythm: regular Heart Sounds: Present: S1 & S2. Absent: systolic murmur, diastolic murmur - Extremities Extremities: no ischemia, pulses intact, pulses symmetrical, No edema, normal temperature, normal color Peripheral Pulses: within normal limits - Abdominal General gastrointestinal: soft, non-tender, non-distended, normal bowel sounds - Integumentary Integumentary: Present: warm, dry - Psychiatric Psychiatric: cooperative - Neurologic Neurologic: CNII-XII intact, no focal deficits, moves all extremities Results - Labs CBC & Chem 7: 09/01/21 11:42 09/01/21 11:42 Labs: Laboratory Last Values WBC 13.0 K/mm3 (4.5-11.0) H 09/01/21 11:42 RBC 3.38 M/mm3 (3.65-5.03) L 09/01/21 11:42 Hgb 10.8 gm/dl (10.1-14.3) 09/01/21 11:42 Hct 33.2 % (30.3-42.9) 09/01/21 11:42 MCV 98 fl (79-97) H 09/01/21 11:42 MCH 32 pg (28-32) 09/01/21 11:42 MCHC 33 % (30-34) 09/01/21 11:42 RDW 15.0 % (13.2-15.2) 09/01/21 11:42 Plt Count 257 K/mm3 (140-440) 09/01/21 11:42 Lymph # (Auto) [place] 08/19/21 02:24 Add Manual Diff Complete 08/30/21 03:22 Total Counted 100 08/30/21 03:22 Seg Neuts % (Manual) 87.0 % (40.0-70.0) H 08/30/21 03:22 Band Neutrophils % 0 % 08/30/21 03:22 Lymphocytes % (Manual) 10.0 % (13.4-35.0) L 08/30/21 03:22 Reactive Lymphs % (Man) 0 % 08/30/21 03:22 Monocytes % (Manual) 3.0 % (0.0-7.3) 08/30/21 03:22 Eosinophils % (Manual) 0 % (0.0-4.3) 08/30/21 03:22 Basophils % (Manual) 0 % (0.0-1.8) 08/30/21 03:22 Metamyelocytes % 0 % 08/30/21 03:22 Myelocytes % 0 % 08/30/21 03:22 Promyelocytes % 0 % 08/30/21 03:22 Blast Cells % 0 % 08/30/21 03:22 Nucleated RBC % Not Reportable 08/30/21 03:22 Seg Neutrophils # Man 17.7 K/mm3 (1.8-7.7) H 08/30/21 03:22 Band Neutrophils # 0.0 K/mm3 08/30/21 03:22 Lymphocytes # (Manual) 2.0 K/mm3 (1.2-5.4) 08/30/21 03:22 Abs React Lymphs (Man) 0.0 K/mm3 08/30/21 03:22 Monocytes # (Manual) 0.6 K/mm3 (0.0-0.8) 08/30/21 03:22 Eosinophils # (Manual) 0.0 K/mm3 (0.0-0.4) 08/30/21 03:22 Basophils # (Manual) 0.0 K/mm3 (0.0-0.1) 08/30/21 03:22 Metamyelocytes # 0.0 K/mm3 08/30/21 03:22 Myelocytes # 0.0 K/mm3 08/30/21 03:22 Promyelocytes # 0.0 K/mm3 08/30/21 03:22 Blast Cells # 0.0 K/mm3 08/30/21 03:22 WBC Morphology Not Reportable 08/30/21 03:22 Hypersegmented Neuts Not Reportable 08/30/21 03:22 Hyposegmented Neuts Not Reportable 08/30/21 03:22 Hypogranular Neuts Not Reportable 08/30/21 03:22 Smudge Cells Not Reportable 08/30/21 03:22 Toxic Granulation Not Reportable 08/30/21 03:22 Toxic Vacuolation Not Reportable 08/30/21 03:22 Dohle Bodies Not Reportable 08/30/21 03:22 Pelger-Huet Anomaly Not Reportable 08/30/21 03:22 Erik Rods Not Reportable 08/30/21 03:22 Platelet Estimate Consistent w auto 08/30/21 03:22 Clumped Platelets Not Reportable 08/30/21 03:22 Plt Clumps, EDTA Not Reportable 08/30/21 03:22 Large Platelets Not Reportable 08/30/21 03:22 Giant Platelets Not Reportable 08/30/21 03:22 Platelet Satelliting Not Reportable 08/30/21 03:22 Plt Morphology Comment Not Reportable 08/30/21 03:22 RBC Morphology Normal 08/30/21 03:22 Dimorphic RBCs Not Reportable 08/30/21 03:22 Polychromasia Not Reportable 08/30/21 03:22 Hypochromasia Not Reportable 08/30/21 03:22 Poikilocytosis Not Reportable 08/30/21 03:22 Anisocytosis Not Reportable 08/30/21 03:22 Microcytosis Not Reportable 08/30/21 03:22 Macrocytosis Not Reportable 08/30/21 03:22 Spherocytes Not Reportable 08/30/21 03:22 Pappenheimer Bodies Not Reportable 08/30/21 03:22 Sickle Cells Not Reportable 08/30/21 03:22 Target Cells Not Reportable 08/30/21 03:22 Tear Drop Cells Not Reportable 08/30/21 03:22 Ovalocytes Not Reportable 08/30/21 03:22 Helmet Cells Not Reportable 08/30/21 03:22 [place] Bodies Not Reportable 08/30/21 03:22 [place] Rings Not Reportable 08/30/21 03:22 [place] Cells Not Reportable 08/30/21 03:22 Bite Cells Not Reportable 08/30/21 03:22 Crenated Cell Not Reportable 08/30/21 03:22 Elliptocytes Not Reportable 08/30/21 03:22 Acanthocytes (Spur) Not Reportable 08/30/21 03:22 Rouleaux Not Reportable 08/30/21 03:22 Hemoglobin C Crystals Not Reportable 08/30/21 03:22 Schistocytes Not Reportable 08/30/21 03:22 Malaria parasites Not Reportable 08/30/21 03:22 Marco Bodies Not Reportable 08/30/21 03:22 Hem Pathologist Commnt No 08/30/21 03:22 PT 12.8 Sec. (12.2-14.9) 08/19/21 02:24 INR 0.87 (0.87-1.13) 08/19/21 02:24 APTT 20.0 Sec. (24.2-36.6) L 08/19/21 02:24 ABG pH 7.516 pH Units (7.350-7.450) H 08/27/21 03:56 POC ABG pCO2 30.1 mmHg (32.0-48.0) L 08/22/21 10:16 ABG pCO2 34.4 mm Hg 08/27/21 03:56 POC ABG pO2 109.5 mmHg (83-108) H 08/22/21 10:16 ABG pO2 117.0 mm Hg (80.0-90.0) H 08/27/21 03:56 POC ABG HCO3 23.5 08/22/21 10:16 ABG HCO3 27.2 mmol/L (20.0-26.0) H 08/27/21 03:56 ABG O2 Saturation 98.4 % (95.0-99.0) 08/27/21 03:56 ABG O2 Content 15.3 (0.0-44) 08/27/21 03:56 POC ABG Base Excess 1.2 08/22/21 10:16 ABG Base Excess 4.3 mmol/L (-2.0-3.0) H 08/27/21 03:56 ABG Hemoglobin 11.1 gm/dl (12.0-16.0) L 08/27/21 03:56 ABG Oxyhemoglobin 96.8 (94-98) 08/22/21 10:16 ABG Carboxyhemoglobin 1.0 % (0.0-5.0) 08/27/21 03:56 ABG Methemoglobin 0.5 % (0.0-1.5) 08/27/21 03:56 ABG Sodium Not Reportable 08/22/21 10:16 ABG Potassium Not Reportable 08/22/21 10:16 ABG Chloride Not Reportable 08/22/21 10:16 ABG Glucose Not Reportable 08/22/21 10:16 Oxyhemoglobin 96.9 % (95.0-99.0) 08/27/21 03:56 Carboxyhemoglobin 1.1 (0.5-1.5) 08/22/21 10:16 FiO2 40 % 08/27/21 03:56 FiO2 % 30.0 08/22/21 10:16 Sodium 137 mmol/L (137-145) 09/01/21 11:42 Potassium 4.0 mmol/L (3.6-5.0) 09/01/21 11:42 Chloride 101.2 mmol/L (98-107) 09/01/21 11:42 Carbon Dioxide 22 mmol/L (22-30) 09/01/21 11:42 Anion Gap 18 mmol/L 09/01/21 11:42 BUN 18 mg/dL (7-17) H 09/01/21 11:42 Creatinine 0.7 mg/dL (0.6-1.2) 09/01/21 11:42 Estimated GFR > 60 ml/min 09/01/21 11:42 BUN/Creatinine Ratio 26 % 09/01/21 11:42 Glucose 111 mg/dL (65-100) H 09/01/21 11:42 POC Glucose 113 mg/dL (70-105) H 09/01/21 11:05 Calcium 9.9 mg/dL (8.4-10.2) 09/01/21 11:42 Phosphorus 3.50 mg/dL (2.5-4.5) 08/29/21 04:12 Magnesium 2.20 mg/dL (1.7-2.3) 08/29/21 04:12 Total Bilirubin 0.40 mg/dL (0.1-1.2) 08/20/21 04:25 AST 23 units/L (5-40) 08/20/21 04:25 ALT 13 units/L (7-56) 08/20/21 04:25 Alkaline Phosphatase 94 units/L (35-129) 08/20/21 04:25 Total Protein 7.3 g/dL (6.3-8.2) 08/20/21 04:25 Albumin 4.0 g/dL (3.9-5) 08/20/21 04:25 Albumin/Globulin Ratio 1.2 % 08/20/21 04:25 Triglycerides 200 mg/dL (2-149) H 08/27/21 04:25 Arterial Blood Glucose Not Reportable 08/22/21 10:16 Blood Type A POSITIVE 08/21/21 15:10 Microbiology: Microbiology 08/29/21 09:45 Peripheral/Venous Blood Culture - Preliminary NO GROWTH AFTER 72 HOURS 08/29/21 09:45 Peripheral/Venous Blood Culture - Preliminary NO GROWTH AFTER 72 HOURS 09/01/21 07:34 Peripheral/Venous Blood Culture - Preliminary Culture in Progress 09/01/21 07:34 Peripheral/Venous Blood Culture - Preliminary Culture in Progress 08/29/21 12:23 Tracheal Aspirate Sputum Culture - Final Lewis/IV: Voiding Method External Female Catheter Active Medications - Current Medications Current Medications: Generic Name Dose Route Start Last Admin Trade Name Freq PRN Reason Stop Dose Admin Acetaminophen 650 mg 08/19/21 06:00 08/30/21 21:08 Acetaminophen 325 Mg Tab FEEDTUBE 650 mg Q4H PRN Administration Fever >100.5/SAEED/MILD PAIN 1-3 Albuterol 2.5 mg 08/19/21 04:50 Albuterol 2.5 Mg/3 Ml Nebu IH Q3HRT PRN Shortness Of Breath Alprazolam 0.25 mg 08/19/21 06:00 08/29/21 22:34 Alprazolam 0.25 Mg Tab FEEDTUBE 0.25 mg BID PRN Administration Anxiety Atorvastatin Calcium 10 mg 08/23/21 22:00 08/31/21 22:18 Atorvastatin 10 Mg Tab FEEDTUBE 10 mg QHS WARD Administration Buspirone HCl 10 mg 08/19/21 10:00 09/01/21 10:44 Buspirone 10 Mg Tab FEEDTUBE Not Given BID WARD Dextrose 50 ml 08/20/21 10:00 Dextrose 50% In Water (25gm) 50 Ml Syringe IV Q30MIN PRN Hypoglycemia Protocol Docusate Sodium 100 mg 08/28/21 10:00 09/01/21 10:44 Docusate Sodium 100 Mg/10 Ml Oral Liqd PO Not Given BID WARD Famotidine 20 mg 09/01/21 13:00 Famotidine 20 Mg/2 Ml Inj IV BID WARD Folic Acid 1 mg 08/19/21 10:00 09/01/21 10:44 Folic Acid 1 Mg Tab FEEDTUBE Not Given QDAY [facility] Haloperidol Lactate 5 mg 08/29/21 09:58 Haloperidol Lactate 5 Mg/1 Ml Inj IV Q6H PRN Agitation Heparin Sodium (Porcine) 5,000 unit 08/19/21 10:00 09/01/21 12:26 Heparin 5,000 Unit/1 Ml Vial SUB-Q Not Given Q12HR WARD Hydralazine HCl 10 mg 08/19/21 05:03 08/24/21 18:09 Hydralazine 20 Mg/1 Ml Inj IV 10 mg Q6H PRN Administration SBP >/=160; DBP >/=100 NORepinephrine/NS 8 MG-250 ML 8 mg in 250 mls @ 3.75 mls/hr 08/25/21 15:00 08/25/21 14:30 Norepinephrine/Ns 8 Mg-250 Ml (Double Conc) IV 2 mcg/min TITRATE WRAD 3.75 mls/hr Administration Protocol 2 MCG/MIN Aztreonam 2 gm in 100 mls @ 100 mls/hr 09/01/21 12:00 Azactam/Ns 2 Gm/100 Ml IV Q12H [facility] Protocol Levofloxacin/Dextrose 750 mg in 150 mls @ 100 mls/hr 09/01/21 12:00 Levaquin 750mg/150ml IV Q24H [facility] Protocol Vancomycin HCl 1,250 mg/ 275 mls @ 166.667 mls/hr 09/01/21 13:00 09/01/21 12:43 Sodium Chloride IV 166.667 mls/hr Q24H WARD Administration Insulin Human Regular 0 units 08/20/21 12:00 09/01/21 12:26 Insulin Regular, Human 100 Units/1 Ml SUB-Q Not Given Q6H [facility] Protocol Levothyroxine Sodium 75 mcg 09/01/21 13:00 Levothyroxine 100 Mcg Inj IV DAILY@0600 [facility] Nystatin 100,000 unit 08/28/21 08:00 09/01/21 10:43 Nystatin 500,000 Unit/5 Ml Oral Liqd PO 09/03/21 20:01 Not Given TID [facility] Ondansetron HCl 4 mg 08/19/21 04:50 Ondansetron 4 Mg/2 Ml Inj IV Q8H PRN Nausea And Vomiting Polyethylene Glycol 17 gm 08/30/21 10:00 09/01/21 10:44 Polyethylene Glycol 3350 17 Gm Powder PO Not Given QDAY [facility] Senna 17.6 mg 08/29/21 22:00 09/01/21 10:44 Sennosides Oral Liqd 8.8 Mg/5 Ml Oral Liqd PO Not Given Q12HR [facility] Sertraline HCl 25 mg 08/19/21 10:00 09/01/21 12:20 Sertraline 25 Mg Tab FEEDTUBE Not Given QDAY [facility] Sodium Chloride 10 ml 08/19/21 10:00 09/01/21 10:45 Sodium Chloride 0.9% 10 Ml Flush Syringe IV 10 ml BID WARD Administration Sodium Chloride 10 ml 08/19/21 04:50 Sodium Chloride 0.9% 10 Ml Flush Syringe IV PRN PRN LINE FLUSH Sucralfate 1 gm 08/23/21 18:00 09/01/21 05:56 Sucralfate 1 Gm Tab FEEDTUBE 1 gm Q6HR [facility] Administration Thiamine HCl 100 mg 08/19/21 10:00 09/01/21 10:45 Thiamine 100 Mg Tab FEEDTUBE Not Given QDAY WARD Tramadol HCl 50 mg 08/30/21 13:00 08/31/21 01:49 Tramadol 50 Mg Tab FEEDTUBE 50 mg Q6H PRN Administration Pain, Moderate (4-6) Nutrition/Malnutrition Assess - Dietary Evaluation Nutrition/Malnutrition Findings: Nutrition Notes Start: 08/19/21 10:13 Freq: Status: Active Protocol: Document 08/30/21 17:38 ABRAHAM (Rec: 08/30/21 18:00 ABRAHAM [id number]) Nutrition Notes Initial or Follow up Reassessment Current Diagnosis Hypertension,Respiratory Failure Other Pertinent Diagnosis s/p PEG Placement,Angioedema, Urinary Retention, Hypothyroidism, Depressio. Current Diet TF-Glucerna 1.2 Dieudonne @ 45 ml/hr (since D 08/23). Labs/Tests 08/30: BUN 21, Glu 129. Pertinent Medications 08/30: Folic acid, Levothyroxine, Thiamine, others nutritionally unremarkable. Height 4 ft 11 in Weight 74 kg [place] Body Weight (kg) 43.18 BMI 32.9 Weight change and time frame No body weight change reported in 1 week. Weight Status Obese Subjective/Other Information RD consult for routine F/U on TF tolerance. TF continues as prescribed, well tolerated. Pt continues on Mechanical Ventilation, O2 satureation @ 100%, according to Physical Assessment History notes. Pt continues to complain from constipation, according to Physical Assessment History notes. Percent of energy/protein needs met: Prescribed TF-Glucerna 1.2 Dieudonne @ 45 ml/hr provides for energy/protein needs (1,269 Kcal/65 g) during LOS, 94% Kcal; 70% AA. Burn Absent Trauma Absent GI Symptoms Constipation Difficulty In Swallowing,Chewing Food Allergy No Skin Integrity/Comment Assessment WNL. Current % PO Other Minimum of two criteria No #1 Nutrition Diagnosis Inadequate oral intake Diagnosis Progress(for reassessment Continues documentation) Is patient on ventilator? Yes Is Patient Ambulatory and/or Out of Bed No REE-([facility]-confined to bed) 1375.068 Kcal/Kg value to use for calculation 17 Approximate Energy Requirements Using 1258 kcal/Kg Calculation Used for Recommendations Kcal/kg Additional Notes Protein: 2 g/Kg IBW; 86 g/day. Fluids: 1 ml/Kcal, or as per MD. Nutrition Intervention Nutrition Support: Continue TF-Glucerna 1.2 Dieudonne @ 45 ml/hr. Flush: 70 ml water Q 4 hr, or as per MD. Kcal 1,269 Protein (gm) 65 Carbohydrates (gm) 124 Fat (gm) 65 Fluid (mL) 869 Fiber (gm) 17 % RDI: 94% Kcal; 70% AA. Goal #1 Provide at least 75% of energy /protein needs through Enteral Feeding during LOS. Goal #2 Maintain body weight within +/ -3% of admission body weight during LOS. Follow-Up By: 09/06/21 Additional Comments Continue monitoring, Ventilation status, TF tolerance and BM. <LEVI CONNELL - Last Filed: 09/07/21 16:48> Assessment and Plan Assessment and plan: I saw and evaluated the patient. Discussed with the nurse practitioner and agree with their findings and plan as documented in this note. Hospitalist Physical - Constitutional Vitals: Temp Pulse Resp BP Pulse Ox 98.1 F 88 16 127/79 97 09/07/21 08:13 09/07/21 12:00 09/07/21 08:13 09/07/21 08:13 09/07/21 08:57 Results - Labs CBC & Chem 7: 09/07/21 06:00 09/07/21 06:00 Labs: Laboratory Last Values WBC 9.6 K/mm3 (4.5-11.0) 09/07/21 06:00 RBC 2.92 M/mm3 (3.65-5.03) L 09/07/21 06:00 Hgb 9.5 gm/dl (10.1-14.3) L 09/07/21 06:00 Hct 28.2 % (30.3-42.9) L 09/07/21 06:00 MCV 97 fl (79-97) 09/07/21 06:00 MCH 33 pg (28-32) H 09/07/21 06:00 MCHC 34 % (30-34) 09/07/21 06:00 RDW 15.2 % (13.2-15.2) 09/07/21 06:00 Plt Count 394 K/mm3 (140-440) 09/07/21 06:00 Lymph % (Auto) 30.6 % (13.4-35.0) 09/07/21 06:00 [place] % (Auto) 4.5 % (0.0-7.3) 09/07/21 06:00 Eos % (Auto) 5.7 % (0.0-4.3) H 09/07/21 06:00 Baso % (Auto) 1.3 % (0.0-1.8) 09/07/21 06:00 Lymph # (Auto) 2.9 K/mm3 (1.2-5.4) 09/07/21 06:00 [place] # (Auto) 0.4 K/mm3 (0.0-0.8) 09/07/21 06:00 Eos # (Auto) 0.5 K/mm3 (0.0-0.4) H 09/07/21 06:00 Baso # (Auto) 0.1 K/mm3 (0.0-0.1) 09/07/21 06:00 Add Manual Diff Complete 08/30/21 03:22 Total Counted 100 08/30/21 03:22 Seg Neutrophils % 57.9 % (40.0-70.0) 09/07/21 06:00 Seg Neuts % (Manual) 87.0 % (40.0-70.0) H 08/30/21 03:22 Band Neutrophils % 0 % 08/30/21 03:22 Lymphocytes % (Manual) 10.0 % (13.4-35.0) L 08/30/21 03:22 Reactive Lymphs % (Man) 0 % 08/30/21 03:22 Monocytes % (Manual) 3.0 % (0.0-7.3) 08/30/21 03:22 Eosinophils % (Manual) 0 % (0.0-4.3) 08/30/21 03:22 Basophils % (Manual) 0 % (0.0-1.8) 08/30/21 03:22 Metamyelocytes % 0 % 08/30/21 03:22 Myelocytes % 0 % 08/30/21 03:22 Promyelocytes % 0 % 08/30/21 03:22 Blast Cells % 0 % 08/30/21 03:22 Nucleated RBC % Not Reportable 08/30/21 03:22 Seg Neutrophils # 5.5 K/mm3 (1.8-7.7) 09/07/21 06:00 Seg Neutrophils # Man 17.7 K/mm3 (1.8-7.7) H 08/30/21 03:22 Band Neutrophils # 0.0 K/mm3 08/30/21 03:22 Lymphocytes # (Manual) 2.0 K/mm3 (1.2-5.4) 08/30/21 03:22 Abs React Lymphs (Man) 0.0 K/mm3 08/30/21 03:22 Monocytes # (Manual) 0.6 K/mm3 (0.0-0.8) 08/30/21 03:22 Eosinophils # (Manual) 0.0 K/mm3 (0.0-0.4) 08/30/21 03:22 Basophils # (Manual) 0.0 K/mm3 (0.0-0.1) 08/30/21 03:22 Metamyelocytes # 0.0 K/mm3 08/30/21 03:22 Myelocytes # 0.0 K/mm3 08/30/21 03:22 Promyelocytes # 0.0 K/mm3 08/30/21 03:22 Blast Cells # 0.0 K/mm3 08/30/21 03:22 WBC Morphology Not Reportable 08/30/21 03:22 Hypersegmented Neuts Not Reportable 08/30/21 03:22 Hyposegmented Neuts Not Reportable 08/30/21 03:22 Hypogranular Neuts Not Reportable 08/30/21 03:22 Smudge Cells Not Reportable 08/30/21 03:22 Toxic Granulation Not Reportable 08/30/21 03:22 Toxic Vacuolation Not Reportable 08/30/21 03:22 Dohle Bodies Not Reportable 08/30/21 03:22 Pelger-Huet Anomaly Not Reportable 08/30/21 03:22 Erik Rods Not Reportable 08/30/21 03:22 Platelet Estimate Consistent w auto 08/30/21 03:22 Clumped Platelets Not Reportable 08/30/21 03:22 Plt Clumps, EDTA Not Reportable 08/30/21 03:22 Large Platelets Not Reportable 08/30/21 03:22 Giant Platelets Not Reportable 08/30/21 03:22 Platelet Satelliting Not Reportable 08/30/21 03:22 Plt Morphology Comment Not Reportable 08/30/21 03:22 RBC Morphology Normal 08/30/21 03:22 Dimorphic RBCs Not Reportable 08/30/21 03:22 Polychromasia Not Reportable 08/30/21 03:22 Hypochromasia Not Reportable 08/30/21 03:22 Poikilocytosis Not Reportable 08/30/21 03:22 Anisocytosis Not Reportable 08/30/21 03:22 Microcytosis Not Reportable 08/30/21 03:22 Macrocytosis Not Reportable 08/30/21 03:22 Spherocytes Not Reportable 08/30/21 03:22 Pappenheimer Bodies Not Reportable 08/30/21 03:22 Sickle Cells Not Reportable 08/30/21 03:22 Target Cells Not Reportable 08/30/21 03:22 Tear Drop Cells Not Reportable 08/30/21 03:22 Ovalocytes Not Reportable 08/30/21 03:22 Helmet Cells Not Reportable 08/30/21 03:22 [place] Bodies Not Reportable 08/30/21 03:22 [place] Rings Not Reportable 08/30/21 03:22 [place] Cells Not Reportable 08/30/21 03:22 Bite Cells Not Reportable 08/30/21 03:22 Crenated Cell Not Reportable 08/30/21 03:22 Elliptocytes Not Reportable 08/30/21 03:22 Acanthocytes (Spur) Not Reportable 08/30/21 03:22 Rouleaux Not Reportable 08/30/21 03:22 Hemoglobin C Crystals Not Reportable 08/30/21 03:22 Schistocytes Not Reportable 08/30/21 03:22 Malaria parasites Not Reportable 08/30/21 03:22 Marco Bodies Not Reportable 08/30/21 03:22 Hem Pathologist Commnt No 08/30/21 03:22 PT 12.8 Sec. (12.2-14.9) 08/19/21 02:24 INR 0.87 (0.87-1.13) 08/19/21 02:24 APTT 20.0 Sec. (24.2-36.6) L 08/19/21 02:24 ABG pH 7.516 pH Units (7.350-7.450) H 08/27/21 03:56 POC ABG pCO2 30.1 mmHg (32.0-48.0) L 08/22/21 10:16 ABG pCO2 34.4 mm Hg 08/27/21 03:56 POC ABG pO2 109.5 mmHg (83-108) H 08/22/21 10:16 ABG pO2 117.0 mm Hg (80.0-90.0) H 08/27/21 03:56 POC ABG HCO3 23.5 08/22/21 10:16 ABG HCO3 27.2 mmol/L (20.0-26.0) H 08/27/21 03:56 ABG O2 Saturation 98.4 % (95.0-99.0) 08/27/21 03:56 ABG O2 Content 15.3 (0.0-44) 08/27/21 03:56 POC ABG Base Excess 1.2 08/22/21 10:16 ABG Base Excess 4.3 mmol/L (-2.0-3.0) H 08/27/21 03:56 ABG Hemoglobin 11.1 gm/dl (12.0-16.0) L 08/27/21 03:56 ABG Oxyhemoglobin 96.8 (94-98) 08/22/21 10:16 ABG Carboxyhemoglobin 1.0 % (0.0-5.0) 08/27/21 03:56 ABG Methemoglobin 0.5 % (0.0-1.5) 08/27/21 03:56 ABG Sodium Not Reportable 08/22/21 10:16 ABG Potassium Not Reportable 08/22/21 10:16 ABG Chloride Not Reportable 08/22/21 10:16 ABG Glucose Not Reportable 08/22/21 10:16 Oxyhemoglobin 96.9 % (95.0-99.0) 08/27/21 03:56 Carboxyhemoglobin 1.1 (0.5-1.5) 08/22/21 10:16 FiO2 40 % 08/27/21 03:56 FiO2 % 30.0 08/22/21 10:16 Sodium 136 mmol/L (137-145) L 09/07/21 06:00 Potassium 3.9 mmol/L (3.6-5.0) 09/07/21 06:00 Chloride 98.0 mmol/L (98-107) 09/07/21 06:00 Carbon Dioxide 28 mmol/L (22-30) D 09/07/21 06:00 Anion Gap 14 mmol/L 09/07/21 06:00 BUN 11 mg/dL (7-17) 09/07/21 06:00 Creatinine 0.6 mg/dL (0.6-1.2) 09/07/21 06:00 Estimated GFR > 60 ml/min 09/07/21 06:00 BUN/Creatinine Ratio 18 % 09/07/21 06:00 Glucose 111 mg/dL (65-100) H 09/07/21 06:00 POC Glucose 113 mg/dL (70-105) H 09/07/21 16:13 Calcium 10.3 mg/dL (8.4-10.2) H 09/07/21 06:00 Phosphorus 3.30 mg/dL (2.5-4.5) D 09/06/21 04:00 Magnesium 2.00 mg/dL (1.7-2.3) 09/06/21 04:00 Total Bilirubin 0.30 mg/dL (0.1-1.2) 09/04/21 04:15 AST 19 units/L (5-40) 09/04/21 04:15 ALT 16 units/L (7-56) 09/04/21 04:15 Alkaline Phosphatase 102 units/L (35-129) 09/04/21 04:15 C-Reactive Protein 29.40 mg/dL (0.00-1.30) H 09/02/21 04:08 Total Protein 6.6 g/dL (6.3-8.2) 09/04/21 04:15 Albumin 2.4 g/dL (3.9-5) L 09/04/21 04:15 Albumin/Globulin Ratio 0.6 % 09/04/21 04:15 Triglycerides 200 mg/dL (2-149) H 08/27/21 04:25 Procalcitonin 1.34 ng/mL (<0.15) 09/02/21 04:08 Arterial Blood Glucose Not Reportable 08/22/21 10:16 Nasal Screen MRSA (PCR) Negative (Negative) 09/01/21 12:15 Blood Type A POSITIVE 08/21/21 15:10 Lewis/IV: Voiding Method Indwelling Catheter Active Medications - Current Medications Current Medications: Generic Name Dose Route Start Last Admin Trade Name Freq PRN Reason Stop Dose Admin Acetaminophen 650 mg 08/19/21 06:00 09/02/21 14:20 Acetaminophen 325 Mg Tab FEEDTUBE 650 mg Q4H PRN Administration Fever >100.5/SAEED/MILD PAIN 1-3 Albuterol 2.5 mg 08/19/21 04:50 Albuterol 2.5 Mg/3 Ml Nebu IH Q3HRT PRN Shortness Of Breath Atorvastatin Calcium 10 mg 09/05/21 22:00 09/06/21 22:14 Atorvastatin 10 Mg Tab FEEDTUBE 10 mg QHS WARD Administration Buspirone HCl 10 mg 09/05/21 10:00 09/07/21 10:03 Buspirone 10 Mg Tab FEEDTUBE 10 mg BID WARD Administration Dextrose 50 ml 08/20/21 10:00 09/03/21 12:34 Dextrose 50% In Water (25gm) 50 Ml Syringe IV 15 ml Q30MIN PRN Administration Hypoglycemia Protocol Diphenhydramine HCl 25 mg 09/07/21 15:00 Diphenhydramine 25 Mg Cap PO Q8H PRN Itching Folic Acid 1 mg 09/05/21 10:00 09/07/21 10:03 Folic Acid 1 Mg Tab FEEDTUBE 1 mg QDAY WARD Administration Haloperidol Lactate 5 mg 08/29/21 09:58 09/03/21 17:39 Haloperidol Lactate 5 Mg/1 Ml Inj IV 5 mg Q6H PRN Administration Agitation Heparin Sodium (Porcine) 5,000 unit 08/19/21 10:00 09/07/21 10:03 Heparin 5,000 Unit/1 Ml Vial SUB-Q 5,000 unit Q12HR WARD Administration Hydralazine HCl 10 mg 08/19/21 05:03 08/24/21 18:09 Hydralazine 20 Mg/1 Ml Inj IV 10 mg Q6H PRN Administration SBP >/=160; DBP >/=100 Fluconazole 200 mg in 100 mls @ 100 mls/hr 09/01/21 20:00 09/06/21 20:50 Diflucan IV 09/14/21 20:59 100 mls/hr Q24H WARD Administration Protocol Insulin Human Regular 0 units 08/20/21 12:00 09/07/21 12:23 Insulin Regular, Human 100 Units/1 Ml SUB-Q Not Given Q6H [facility] Protocol Levothyroxine Sodium 150 mcg 09/07/21 12:00 09/07/21 13:26 Levothyroxine 150 Mcg Tab FEEDTUBE 150 mcg DAILY@0600 WARD Administration Lorazepam 0.25 mg 09/05/21 14:41 09/07/21 13:27 Lorazepam 0.5 Mg Tab FEEDTUBE 0.25 mg BID PRN Administration Agitation Mineral Oil 133 ml 09/05/21 08:49 Mineral Oil Enema 133 Ml OH QDAY PRN Constipation Ondansetron HCl 4 mg 08/19/21 04:50 Ondansetron 4 Mg/2 Ml Inj IV Q8H PRN Nausea And Vomiting Senna 8.8 mg 09/05/21 22:00 09/06/21 22:15 Sennosides Oral Liqd 8.8 Mg/5 Ml Oral Liqd FEEDTUBE 8.8 mg QHS WARD Administration Sodium Chloride 10 ml 08/19/21 10:00 09/07/21 10:04 Sodium Chloride 0.9% 10 Ml Flush Syringe IV 10 ml BID WARD Administration Sodium Chloride 10 ml 08/19/21 04:50 Sodium Chloride 0.9% 10 Ml Flush Syringe IV PRN PRN LINE FLUSH Sucralfate 1 gm 09/05/21 12:00 09/07/21 13:26 Sucralfate 1 Gm/10 Ml Oral Liqd FEEDTUBE 1 gm Q6HR WARD Administration Thiamine HCl 100 mg 09/05/21 10:00 09/07/21 10:04 Thiamine 100 Mg Tab FEEDTUBE 100 mg QDAY WARD Administration Tramadol HCl 50 mg 09/05/21 14:42 09/07/21 13:27 Tramadol 50 Mg Tab FEEDTUBE 50 mg Q4H PRN Administration Pain, Moderate (4-6) Nutrition/Malnutrition Assess - Dietary Evaluation Nutrition/Malnutrition Findings: Nutrition Notes Start: 08/19/21 10:13 Freq: Status: Active Protocol: Document 09/06/21 14:58 ABRAHAM (Rec: 09/06/21 15:18 ABRAHAM [id number]) Nutrition Notes Initial or Follow up Brief Note Current Diagnosis Hypertension,Respiratory Failure Other Pertinent Diagnosis s/p PEG Placement,Angioedema, Urinary Retention, Hypothyroidism, Depression Current Diet TF-Glucerna 1.2 Dieudonne @ 45 ml/hr (since B 09/05). Height 4 ft 11 in Weight 74 kg [place] Body Weight (kg) 43.18 BMI 32.9 Weight change and time frame No body weight change reported in 12 days. Weight Status Obese Subjective/Other Information RD consult for routine F/U on resumed TF and tolerance. TF resumed on B 09/05 and continues as prescribed, well tolerated, according to Progress notes. Pt on Trach-Tube, O2 saturation @ 98%, according to Physical Assessmet History notes. Pt has produced multiple BM, according to Progress notes. Pt to be discharged to SNF, awaiting placemernt, according to Progress notes. Percent of energy/protein needs met: Prescribed TF-Glucerna 1.2 Dieudonne @ 45 ml/hr provides for energy/protein needs (1,269 Kcal/65 g) during LOS, 94% Kcal; 70% AA. #1 Nutrition Diagnosis Inadequate oral intake Diagnosis Progress(for reassessment Continues documentation) Is patient on ventilator? Yes Is Patient Ambulatory and/or Out of Bed No REE-([facility]-confined to bed) 1375.068 Kcal/Kg value to use for calculation 17 Approximate Energy Requirements Using 1258 kcal/Kg Calculation Used for Recommendations Kcal/kg Additional Notes Protein: 2 g/Kg IBW; 86 g/day. Fluids: 1 ml/Kcal, or as per MD. Nutrition Intervention Nutrition Support: Continue TF-Glucerna 1.2 Dieudonne @ 45 ml/hr. Flush: 70 ml water Q 4 hr, or as per MD. Kcal 1,269 Protein (gm) 65 Carbohydrates (gm) 124 Fat (gm) 65 Fluid (mL) 869 Fiber (gm) 17 % RDI: 94% Kcal; 70% AA. Goal #1 Provide at least 75% of energy /protein needs through Enteral Feeding during LOS. Goal #2 Maintain body weight within +/ -3% of admission body weight during LOS. Follow-Up By: 09/13/21 Additional Comments Continue monitoring, Ventilation status, TF tolerance and BM.
[2021-09-01] MEDS: LEVOTHYROXINE 100 MCG INJ IV SCH (14:24)
--- NOTE | 2021-09-01 16:28 | Anesthesia Consultation ---
Anesthesia Consult and Med Hx Date of service: 09/01/21 - Airway Anesthetic Teeth Evaluation: Poor ROM Head & Neck: Inadequate Mental/Hyoid Distance: Inadequate Mallampati Class: Class III Intubation Access Assessment: Difficult (Pt has Trach) - Pulmonary Exam CTA: Yes - Cardiac Exam Cardiac Exam: RRR - Pre-Operative Health Status ASA Pre-Surgery Classification: ASA3 Proposed Anesthetic Plan: General - Pulmonary Hx Respiratory Symptoms: Yes (angioedema on admission with persistent upper airway edema) - Cardiovascular System Hx Hypertension: Yes - Central Nervous System Hx Psychiatric Problems: Yes - Endocrine Hx Renal Disease: No Hx Hypothyroidism: Yes - Other Systems Hx Obesity: Yes (BMI 33) - Additional Comments Anesthesia Medical History Comments: Presented with respiratory distress 2/2 angioedema and intubated on 08/19/21. Attempted extubation 08/25/21 AM but patient developed respiratory distress and stridor so was reintubated that afternoon. Briefly on pressors after reintubation 08/25/21 but now HD stable. FiO2 40%, Peep 6. Propofol and fentanyl gtt for sedation. Anesthesia consent obtained from son Leno Resendiz via telephone. Handoff received from INSTRUMENT FITTER and RT on arrival to OR.
--- NOTE | 2021-09-01 16:29 | Anesthesia Day of Surgery ---
Anesthesia Day of Surgery - Day of Surgery Patient Examined: Yes Patient H&P Reviewed: Yes Patient is NPO: Yes
[2021-09-01] MEDS ORDERED: MIDAZOLAM 2 MG/2 ML INJ ONE (16:55)
[2021-09-01] MEDS ORDERED: fentaNYL 100 MCG/2 ML INJ ONE (17:03)
[2021-09-01] MEDS ORDERED: BUPIVACAINE/PF (0.5%) 5 MG/1 ML 30 ML VIAL INFILTRATI ONE ×2 (17:34→18:09)
[2021-09-01] MEDS ORDERED: LIDOCAINE (1%) 10 MG/1 ML VIAL 20 ML MDV ONE (17:35)
[2021-09-01] MEDS ORDERED: WATER FOR IRRIG STERILE 1,500 ML BOTTLE IR ONE (18:10)
[2021-09-01] MEDS ORDERED: LIDOCAINE (1%) 10 MG/1 ML VIAL 20 ML MDV INFILTRATI ONE (18:10)
[2021-09-01] MEDS ORDERED: ROCURONIUM 50 MG/5 ML INJ IV ONE (19:07)
--- NOTE | 2021-09-01 19:27 | Operative Report ---
Operative Report Operative Report: Date of procedure: 09/01/2021 Preop diagnosis malposition of gastric feeding tube. Postop diagnoses erosion of gastric wall from PEG tube Procedure EGD, removal of PEG tube. Laparoscopic exploration, lysis of adhesion, staple closure of gastrotomy site, placement of gastric tube 20 Libyan. Surgeon: Dr. Mays Chicken Buyer: Dr. Acosta Anesthesia: GETA Estimated blood loss: 25 cc Specimen: Gastric wall at site of perforation Findings: This is a 76-year-old -[place] lady who was status post a trac heostomy and PEG tube placement about 6 days ago. Nursing reported difficulty using the PEG tube today and more pain associated with it. CT scan of the abdomen and confirmed malposition of the PEG tube in the abdominal wall. Timeouts and consents are on the chart. Patient had been on IV antibiotics in the ICU. A Esquivel catheter was placed. The flexible endoscope was advanced through the oropharynx into the stomach there is extensive amount of erosions and esophagitis possibly candidiasis as well in the esophagus. The gastric PEG tube is visualized and advanced back into the stomach it is captured with the snare and withdrawn through the mouth. A blue guidewire is passed through the gastrotomy site into the stomach and also captured with a snare and brought out through the mouth. A second PEG tube was attached at its tapered into the guidewire and pulled through the mouth and esophagus through the stomach and abdominal wall. The EGD scope was advanced into the stomach and the gastric wall is seen to have had an developed an erosion that is larger than the PEG tube button. The second PEG tube is removed. The abdomen is in prepped with ChloraPrep draped in the sterile fashion. A Veress needle was Thomas into the right upper quadrant abdomen is insufflated. A 5 mm Visiport is used to establish a port in the left upper quadrant about 15 cm away from the gastrotomy site. 2 additional ports were placed in the right upper quadrant a 5 Espinoza port and a 12 Espinoza port. The gastrotomy site is dissected free of the abdominal wall and a 2 cm perforation into the gastric w all is identified. 3 cm proximal to this a balloontipped 20 Libyan gastrostomy tube is advanced through the old gastrotomy incision into the abdominal cavity and then advanced into the stomach. Harmonic scalpel was used to make the second gastrotomy site. The Endo Stitch is then used to place 2-0 Vicryl sutures to control the gastric erosion site. 3 sutures are placed. A blue load and a linear stapler is then applied across the perforation site and the erosion and it the associated adjacent gastric wall is stapled off of the anterior surface of the stomach. The specimen is retrieved and sent to pathology. 2-0 Prolene sutures are passed with the Jim De Guzman system through the abdominal wall muscle into the abdominal cavity and used to suture and packs the new gastrotomy site to the abdominal wall. When this was completed the pexing sutures were tied 2-0 Prolene is then used to close the 12 mm port in the right upper quadrant. Sponge counts and needle counts are correct. The CO2 is allowed to exit the abdomen. The ports are removed. The gastrostomy tube is sutured at the skin at 5 cm. The skin portal incisions are closed with 4-0 Monocryl and Dermabond.
[2021-09-01] MEDS: FAMOTIDINE 20 MG/2 ML INJ IV SCH ×2 (21:08→21:23)
[2021-09-01] MEDS: FLUCONAZOLE 200 MG 200 MG/100 ML BAG IV SCH (21:09)
[2021-09-01] MEDS: traMADol 50 MG TAB FEEDTUBE PRN (21:15)
[2021-09-01] MEDS ORDERED: MORPHINE 2 MG/1 ML INJ IV STA (22:43)
[2021-09-02 04:53] LABS: Hematocrit 32.4 % (30.3-42.9); Hemoglobin 10.8 gm/dl (10.1-14.3); Mean Corpuscular HGB Conc 33 % (30-34); Mean Corpuscular Volume 98 fl (79-97); Platelet Count 259 K/mm3 (140-440); Red Cell Distribution Width 15.6 % (13.2-15.2)
[2021-09-02 05:06] LABS: Blood Urea Nitrogen 16 mg/dL (7-17); Calcium 9.5 mg/dL (8.4-10.2); Hemolysis Index 31
[2021-09-02 05:20] LABS: BUN/Creatinine Ratio 27
[2021-09-02] MEDS: SUCRALFATE 1 GM TAB FEEDTUBE SCH ×4 (05:48→23:46)
[2021-09-02] MEDS: LEVOTHYROXINE 100 MCG INJ IV SCH (05:48)
[2021-09-02] MEDS: INSULIN REGULAR, HUMAN 100 UNITS/1 ML SUB-Q SCH ×4 (06:08→23:46)
[2021-09-02] MEDS ORDERED: AZTREONAM/NS 2 GM/100 ML 2 GM/100 ML VIAL IV SCH ×2 (08:00→11:00)
--- NOTE | 2021-09-02 08:53 | Post Anesthesia Evaluation ---
- Post Anesthesia Evaluation Patient Participated: Yes Airway Patent: Yes Stable Respiratory Function: Yes Nausea/Vomiting: No Temp > 96.8F: Yes Pain Manageable: Yes Adequeate Hydration: Yes Anesthesia Complications: No Block Receding Appropriately: Not Applicable Patient on Ventilator: No
[2021-09-02] MEDS: THIAMINE 100 MG TAB FEEDTUBE SCH (09:12)
[2021-09-02] MEDS: MULTIVITAMIN / MINERAL ORAL LIQUID 15 ML FEEDTUBE SCH (09:12)
[2021-09-02] MEDS: busPIRone 10 MG TAB FEEDTUBE SCH ×2 (09:12→22:43)
[2021-09-02] MEDS: HEPARIN 5,000 UNIT/1 ML VIAL SUB-Q SCH ×2 (09:12→22:13)
[2021-09-02] MEDS: FOLIC ACID 1 MG TAB FEEDTUBE SCH (09:12)
[2021-09-02] MEDS: NYSTATIN 500,000 UNIT/5 ML ORAL LIQD PO SCH ×4 (09:12→22:12)
[2021-09-02] MEDS: SERTRALINE 25 MG TAB FEEDTUBE SCH (09:12)
[2021-09-02] MEDS: FAMOTIDINE 20 MG/2 ML INJ IV SCH ×2 (09:13→22:13)
[2021-09-02] MEDS ORDERED: guaiFENesin 100 MG/5 ML ORAL LIQD PO PRN (10:23)
--- NOTE | 2021-09-02 10:37 | Progress Note ---
<BLANK GARCIA - Last Filed: 09/02/21 17:38> Assessment and Plan Assessment and plan: Assessment and Plan Assessment and plan: This is a 76-year-old female with hypertension, depression and hypothyroidism admitted with angioedema and intubated for airway protection. Will continue Current medical care. Neuro: h/o depression Continue home thiamine, multivitamin, Zoloft, BuSpar and as needed Xanax -Tramadol prn -Avoid delirium -Reorientation as needed -Maintain sleep-wake cycle -As needed analgesia Cardiac: h/o htn monitor blood pressure PRN Hydralazine as needed Continue current BP med Respiratory: Acute hypoxic respiratory failure, angioedema -Intubated in the emergency department on 08/19 with 7.50 ETT at 24 the lips, extubated 08/25 but reintubated shortly after -s/p trach and peg 08/26 -VAP bundle -SPO2 monitoring -s/p Benadryl, Pepcid, Solu-Medrol GI: MO -s/p peg 08/26-revision on 09/01-pet tube not in the right place -continue PPI -resumed tube feeding -CT abd/pelvis shows misposition of PEG 09/01-peg revision done : Urinary retention -Strict intake and output -Renally dose medications -Avoid nephrotoxic medications -Daily weights -Trend BMP -Lewis reinserted -bladder scan and training ID: PNA vs Pneumocytosis, oral savana Leucocytosis -Seen on CT A/P -ID consulted, appreciate recommendations -abx theraoy: nystatin, azteronam, levaquin, vancomycin -f/u blood culture -Monitor WBC and temperature curve reviewed ID note and rece- Continue empiric aztreonam, levofloxacin and v ancomycin Continue fluconazole for presumed esophageal candidiasis -Follow-up sputum culture -f/u MRSA nasal PCR, discontinue vancomycin if negative -CRP is high, f/u procalcitonin Endo: h/o hypothyroidism -continue synthroid DVT prophylaxis -SCDs to BLE while in bed -heparin subq The high probability of a clinically significant, sudden or life threatening deterioration of the [resp] system(s) required my full and direct attention, intervention and personal management. The aggregate critical care time was [60] minutes. This time is in addition to time spent performing reported procedures but includes the following: [x] Data Review and interpretation [x] Patient assessment and monitoring of vital signs [x] Documentation [x] Medication orders and management Disposition Plan: icu Total Time Spent with Patient (Minutes): 60 History Interval history: This is a 76-year-old female with HTN, depression, hypothyroidism who presented to the emergency department on 08/19 via EMS with angioedema reportedly caused by amlodipine however the patient was able to maintain her airway. Per documentation patient was given patient was given 50 mg of IV Benadryl, 0.5 mg epinephrine, 125 mg of IV Solu-Medrol by EMS. At 0235 patient was intubated in the emergency department. Patient was admitted to the hospitalist service with angioedema and mechanical ventilation for airway protection with consults to CCM. Hospital course to date: 08/19: Patient started on tube feedings, potassium repleted, started on Benadryl and propofol for sedation. SSI started. Air leak present today however due to swelling of the tongue we will hold off extubation. CCM plans to try FFP in the a.m. if swelling not better. 08/20: Angioedema slightly better so we will hold off FFP today. Updated son at bedside but he did not know what medication she was taking and states that she has not had angioedema in the past. Patient still remains on Versed and propofol. Was given 500 mL bolus overnight for hypotension and will repeat for hypotension. 08/21: Leak test today at bedside with RT shows no leak and will give FFP today. T ongue looks a bit smaller today but given no leak, CCM will not extubate today. Sedated with propofol and versed. Son at bedside today. 08/22: RT performed leak test in the AM and stated there was a leak noted and placed the patient on CPAP. She was sedated on versed at 4 and propofol at 30 but these are off for CPAP. Will removed lewis. Received FFP yesterday. Angioedema is improved. Leak test performed again with Dr. Bailey and no leak audible. Switched back to AC and sedation restarted 08/23: Remains on the vent and sedated. Cuff leak assessed again today by CCM, still no significant air leak noted. Per CCM keep patient intubated and sedated and continue IV steroids and histamine therapy for now. Fentanyl gtt added, plan to wean off versed for RASS goal of 0 to -1. 5/10: Arousable and appropriate on the vent and on low dose sedation. No cuff leak again today per RT. D/W [facility] plan for CT neck w/o contrast for further eval. If CT neck normal, PSV trial and possible extubation tomorrow. 08/25: S/p extubation this am, audible stridor appreciated. S/p X2 doses of RaceEpi and IV solumedrol X1 dose. Patient currently stable on 4L NC, SPO2 at 94%. Patient is low threshold for re-intubation, case discussed with anesthesia in case of any decompensation. D/w [facility] patient will need a trach if she is reintubated. Plan of care was thoroughly discussed with patient's son at the bedside by the bitumen plant operator. All question and concerns were addressed at this time. 08/26: Reintubated yesterday due to stridor. General Surgery consulted, plan for possible trach and PEG today. Hypotension resolved this am most likely due to sedation for intubation, VSS today. Wean SPO2 as tolerated for SPO2 above 90%. Continue to monitor and replete electrolytes as needed. 08/27: s/p Trach and PEG overnight. Patient is stable on the vent this am, sedated on propofol and fentanyl. okay to use PEG-tube per general surgery, resume TF as ordered. PRN Analgesia added for pain control, wean off sedation as tolerated. Plan for possible PSV trial tomorrow. 08/28: Stable on the vent, still on sedation. Schedule tramadol and PRN fentanyl added for pain control, plan to wean sedation as tolerated. Possible PSV trial tomorrow if off sedation. PRN Xanax for anxiety. BR added for constipation. 08/29: Back on propofol from overnight due to increase anxiety. Patient is awake and calm this am, will D/C propofol and use PRN Xanax as needed for anxiety. Continue schedule tramadol and PRN fentanyl for pain control. Patient with increase secretion today, orally and via trach. Patient is also febrile with spike in WBCs, Chest XR ordered and will panculture. Hold off IV abx for now. Will also remove lewis catheter, straight/cath and bladder scan per protocol. 08/30: Ordered mag citrate today as suppositories do not yield any results yesterday, will start bladder training today. Remains afebrile. PSV per RT. 08/31: D/w Dr Jenkins, will attempt t peice trial for 24 hrs. Ultimately dispo for this patient will be SNF if able to tolerate trial. Paged in afternoon regarding projectile vomiting. No residual noted in PEG tube. KUB ordered. Will likely order Mag citrate as patient has not had BM. 09/01: This AM noted to have bleeding from trach site and peg tube noted to be misplaced with brown drainage. Dr. Mays alerted and came to bedside. RT states suture was removed from trach which stopped the bleeding. Neck and Abd/Pelvis CT ordered. Abd CT showed pef displacement and surgery contacted vascular surgery who will take the patient to IR. Stat CBC and BMP obtained. ID consulted re PCN allergy and sputum culture sent re concern for Pseudumonas in trach aspirate. meds changed to iv 09/02-patient seen at bedside. Awake-she reports coughing and asking for cough medicine. Pt is s/p peg placement. Pt is NPO and on gently IV fluid for hydration. Will start feeding per surgery. Reviewed lab and v/s. Patient not in acute distress. I discussed plan of care with Dr Jenkins-will restart tube feeding, Heprin subcutaneous, continue IV diflucan and f/u with ID reces for abx. Will continue PS [id number] T-piece tomorrow if patient is stable. History Interval history: Reviewed General surgery note-ok to resume feeding-feeding resumed. Patient reports drainage around peg site-pt nurse advised to stop feeding if feeding is draining from peg site. patient seen, peg site assessed- patient not in any distress. Hospitalist Physical - Constitutional Vitals: Temp Pulse Resp BP Pulse Ox 100.1 F H 100 H 30 H 148/95 99 09/02/21 03:55 09/02/21 08:01 09/02/21 07:41 09/02/21 08:01 09/02/21 08:01 General appearance: Present: no acute distress, well-nourished, obese - EENT ENT: hearing intact - Respiratory Respiratory effort: other (on trach to vent) - Cardiovascular Rhythm: regular - Extremities Extremities: no ischemia Extremity abnormal: cyanosis - Abdominal General gastrointestinal: tender (at peg site. pt is s/p peg revision) - Psychiatric Psychiatric: cooperative - Allied Health Allied health notes reviewed: nursing Results - Labs CBC & Chem 7: 05/19/22 04:08 09/02/21 04:08 Labs: Laboratory Last Values WBC 11.0 K/mm3 (4.5-11.0) 09/02/21 04:08 RBC 3.30 M/mm3 (3.65-5.03) L 09/02/21 04:08 Hgb 10.8 gm/dl (10.1-14.3) 09/02/21 04:08 Hct 32.4 % (30.3-42.9) 09/02/21 04:08 MCV 98 fl (79-97) H 09/02/21 04:08 MCH 33 pg (28-32) H 09/02/21 04:08 MCHC 33 % (30-34) 09/02/21 04:08 RDW 15.6 % (13.2-15.2) H 09/02/21 04:08 Plt Count 259 K/mm3 (140-440) 09/02/21 04:08 Lymph # (Auto) Roadability Machine Operator 08/19/21 02:24 Add Manual Diff Complete 08/30/21 03:22 Total Counted 100 08/30/21 03:22 Seg Neuts % (Manual) 87.0 % (40.0-70.0) H 08/30/21 03:22 Band Neutrophils % 0 % 08/30/21 03:22 Lymphocytes % (Manual) 10.0 % (13.4-35.0) L 08/30/21 03:22 Reactive Lymphs % (Man) 0 % 08/30/21 03:22 Monocytes % (Manual) 3.0 % (0.0-7.3) 08/30/21 03:22 Eosinophils % (Manual) 0 % (0.0-4.3) 08/30/21 03:22 Basophils % (Manual) 0 % (0.0-1.8) 08/30/21 03:22 Metamyelocytes % 0 % 08/30/21 03:22 Myelocytes % 0 % 08/30/21 03:22 Promyelocytes % 0 % 08/30/21 03:22 Blast Cells % 0 % 08/30/21 03:22 Nucleated RBC % Not Reportable 08/30/21 03:22 Seg Neutrophils # Man 17.7 K/mm3 (1.8-7.7) H 08/30/21 03:22 Band Neutrophils # 0.0 K/mm3 08/30/21 03:22 Lymphocytes # (Manual) 2.0 K/mm3 (1.2-5.4) 08/30/21 03:22 Abs React Lymphs (Man) 0.0 K/mm3 08/30/21 03:22 Monocytes # (Manual) 0.6 K/mm3 (0.0-0.8) 08/30/21 03:22 Eosinophils # (Manual) 0.0 K/mm3 (0.0-0.4) 08/30/21 03:22 Basophils # (Manual) 0.0 K/mm3 (0.0-0.1) 08/30/21 03:22 Metamyelocytes # 0.0 K/mm3 08/30/21 03:22 Myelocytes # 0.0 K/mm3 08/30/21 03:22 Promyelocytes # 0.0 K/mm3 08/30/21 03:22 Blast Cells # 0.0 K/mm3 08/30/21 03:22 WBC Morphology Not Reportable 08/30/21 03:22 Hypersegmented Neuts Not Reportable 08/30/21 03:22 Hyposegmented Neuts Not Reportable 08/30/21 03:22 Hypogranular Neuts Not Reportable 08/30/21 03:22 Smudge Cells Not Reportable 08/30/21 03:22 Toxic Granulation Not Reportable 08/30/21 03:22 Toxic Vacuolation Not Reportable 08/30/21 03:22 Dohle Bodies Not Reportable 08/30/21 03:22 Pelger-Huet Anomaly Not Reportable 08/30/21 03:22 Erik Rods Not Reportable 08/30/21 03:22 Platelet Estimate Consistent w auto 08/30/21 03:22 Clumped Platelets Not Reportable 08/30/21 03:22 Plt Clumps, EDTA Not Reportable 08/30/21 03:22 Large Platelets Not Reportable 08/30/21 03:22 Giant Platelets Not Reportable 08/30/21 03:22 Platelet Satelliting Not Reportable 08/30/21 03:22 Plt Morphology Comment Not Reportable 08/30/21 03:22 RBC Morphology Normal 08/30/21 03:22 Dimorphic RBCs Not Reportable 08/30/21 03:22 Polychromasia Not Reportable 08/30/21 03:22 Hypochromasia Not Reportable 08/30/21 03:22 Poikilocytosis Not Reportable 08/30/21 03:22 Anisocytosis Not Reportable 08/30/21 03:22 Microcytosis Not Reportable 08/30/21 03:22 Macrocytosis Not Reportable 08/30/21 03:22 Spherocytes Not Reportable 08/30/21 03:22 Pappenheimer Bodies Not Reportable 08/30/21 03:22 Sickle Cells Not Reportable 08/30/21 03:22 Target Cells Not Reportable 08/30/21 03:22 Tear Drop Cells Not Reportable 08/30/21 03:22 Ovalocytes Not Reportable 08/30/21 03:22 Helmet Cells Not Reportable 08/30/21 03:22 Rai-Diamond Bar Bodies Not Reportable 08/30/21 03:22 [place] Rings Not Reportable 08/30/21 03:22 Caprice Cells Not Reportable 08/30/21 03:22 Bite Cells Not Reportable 08/30/21 03:22 Crenated Cell Not Reportable 08/30/21 03:22 Elliptocytes Not Reportable 08/30/21 03:22 Acanthocytes (Spur) Not Reportable 08/30/21 03:22 Rouleaux Not Reportable 08/30/21 03:22 Hemoglobin C Crystals Not Reportable 08/30/21 03:22 Schistocytes Not Reportable 08/30/21 03:22 Malaria parasites Not Reportable 08/30/21 03:22 Marco Bodies Not Reportable 08/30/21 03:22 Hem Pathologist Commnt No 08/30/21 03:22 PT 12.8 Sec. (12.2-14.9) 08/19/21 02:24 INR 0.87 (0.87-1.13) 08/19/21 02:24 APTT 20.0 Sec. (24.2-36.6) L 08/19/21 02:24 ABG pH 7.516 pH Units (7.350-7.450) H 08/27/21 03:56 POC ABG pCO2 30.1 mmHg (32.0-48.0) L 08/22/21 10:16 ABG pCO2 34.4 mm Hg 08/27/21 03:56 POC ABG pO2 109.5 mmHg (83-108) H 08/22/21 10:16 ABG pO2 117.0 mm Hg (80.0-90.0) H 08/27/21 03:56 POC ABG HCO3 23.5 08/22/21 10:16 ABG HCO3 27.2 mmol/L (20.0-26.0) H 08/27/21 03:56 ABG O2 Saturation 98.4 % (95.0-99.0) 08/27/21 03:56 ABG O2 Content 15.3 (0.0-44) 08/27/21 03:56 POC ABG Base Excess 1.2 08/22/21 10:16 ABG Base Excess 4.3 mmol/L (-2.0-3.0) H 08/27/21 03:56 ABG Hemoglobin 11.1 gm/dl (12.0-16.0) L 08/27/21 03:56 ABG Oxyhemoglobin 96.8 (94-98) 08/22/21 10:16 ABG Carboxyhemoglobin 1.0 % (0.0-5.0) 08/27/21 03:56 ABG Methemoglobin 0.5 % (0.0-1.5) 08/27/21 03:56 ABG Sodium Not Reportable 08/22/21 10:16 ABG Potassium Not Reportable 08/22/21 10:16 ABG Chloride Not Reportable 08/22/21 10:16 ABG Glucose Not Reportable 08/22/21 10:16 Oxyhemoglobin 96.9 % (95.0-99.0) 08/27/21 03:56 Carboxyhemoglobin 1.1 (0.5-1.5) 08/22/21 10:16 FiO2 40 % 08/27/21 03:56 FiO2 % 30.0 08/22/21 10:16 Sodium 132 mmol/L (137-145) L 09/02/21 04:08 Potassium 4.1 mmol/L (3.6-5.0) 09/02/21 04:08 Chloride 99.9 mmol/L (98-107) 09/02/21 04:08 Carbon Dioxide 20 mmol/L (22-30) L 09/02/21 04:08 Anion Gap 16 mmol/L 09/02/21 04:08 BUN 16 mg/dL (7-17) 09/02/21 04:08 Creatinine 0.6 mg/dL (0.6-1.2) 09/02/21 04:08 Estimated GFR > 60 ml/min 09/02/21 04:08 BUN/Creatinine Ratio 27 % 09/02/21 04:08 Glucose 131 mg/dL (65-100) H 09/02/21 04:08 POC Glucose 124 mg/dL (70-105) H 09/02/21 05:31 Calcium 9.5 mg/dL (8.4-10.2) 09/02/21 04:08 Phosphorus 3.50 mg/dL (2.5-4.5) 08/29/21 04:12 Magnesium 2.20 mg/dL (1.7-2.3) 08/29/21 04:12 Total Bilirubin 0.40 mg/dL (0.1-1.2) 08/20/21 04:25 AST 23 units/L (5-40) 08/20/21 04:25 ALT 13 units/L (7-56) 08/20/21 04:25 Alkaline Phosphatase 94 units/L (35-129) 08/20/21 04:25 C-Reactive Protein 29.40 mg/dL (0.00-1.30) H 09/02/21 04:08 Total Protein 7.3 g/dL (6.3-8.2) 08/20/21 04:25 Albumin 4.0 g/dL (3.9-5) 08/20/21 04:25 Albumin/Globulin Ratio 1.2 % 08/20/21 04:25 Triglycerides 200 mg/dL (2-149) H 08/27/21 04:25 Arterial Blood Glucose Not Reportable 08/22/21 10:16 Blood Type A POSITIVE 08/21/21 15:10 Microbiology: Microbiology 08/29/21 09:45 Peripheral/Venous Blood Culture - Preliminary NO GROWTH AFTER 4 DAYS 08/29/21 09:45 Peripheral/Venous Blood Culture - Preliminary NO GROWTH AFTER 4 DAYS 09/01/21 07:34 Peripheral/Venous Blood Culture - Preliminary NO GROWTH AFTER 24 HOURS 09/01/21 07:34 Peripheral/Venous Blood Culture - Preliminary NO GROWTH AFTER 24 HOURS 09/01/21 12:20 Tracheal Aspirate Sputum Culture - Preliminary Lewis/IV: Voiding Method Indwelling Catheter Active Medications - Current Medications Current Medications: Generic Name Dose Route Start Last Admin Trade Name Freq PRN Reason Stop Dose Admin Acetaminophen 650 mg 08/19/21 06:00 08/30/21 21:08 Acetaminophen 325 Mg Tab FEEDTUBE 650 mg Q4H PRN Administration Fever >100.5/SAEED/MILD PAIN 1-3 Albuterol 2.5 mg 08/19/21 04:50 Albuterol 2.5 Mg/3 Ml Nebu IH Q3HRT PRN Shortness Of Breath Alprazolam 0.25 mg 08/19/21 06:00 08/29/21 22:34 Alprazolam 0.25 Mg Tab FEEDTUBE 0.25 mg BID PRN Administration Anxiety Atorvastatin Calcium 10 mg 08/23/21 22:00 09/01/21 21:07 Atorvastatin 10 Mg Tab FEEDTUBE 10 mg QHS WARD Administration Buspirone HCl 10 mg 08/19/21 10:00 09/02/21 09:12 Buspirone 10 Mg Tab FEEDTUBE 10 mg BID WARD Administration Dextrose 50 ml 08/20/21 10:00 Dextrose 50% In Water (25gm) 50 Ml Syringe IV Q30MIN PRN Hypoglycemia Protocol Docusate Sodium 100 mg 08/28/21 10:00 09/01/21 21:22 Docusate Sodium 100 Mg/10 Ml Oral Liqd PO Not Given BID WARD Famotidine 20 mg 09/01/21 13:00 09/02/21 09:13 Famotidine 20 Mg/2 Ml Inj IV 20 mg BID WARD Administration Folic Acid 1 mg 08/19/21 10:00 09/02/21 09:12 Folic Acid 1 Mg Tab FEEDTUBE 1 mg QDAY WARD Administration Guaifenesin 200 mg 09/02/21 10:23 Guaifenesin 100 Mg/5 Ml Oral Liqd PO Q4H PRN Cough Haloperidol Lactate 5 mg 08/29/21 09:58 Haloperidol Lactate 5 Mg/1 Ml Inj IV Q6H PRN Agitation Heparin Sodium (Porcine) 5,000 unit 08/19/21 10:00 09/02/21 09:12 Heparin 5,000 Unit/1 Ml Vial SUB-Q 5,000 unit Q12HR WARD Administration Hydralazine HCl 10 mg 08/19/21 05:03 08/24/21 18:09 Hydralazine 20 Mg/1 Ml Inj IV 10 mg Q6H PRN Administration SBP >/=160; DBP >/=100 NORepinephrine/NS 8 MG-250 ML 8 mg in 250 mls @ 3.75 mls/hr 08/25/21 15:00 08/25/21 14:30 Norepinephrine/Ns 8 Mg-250 Ml (Double Conc) IV 2 mcg/min TITRATE WARD 3.75 mls/hr Administration Protocol 2 MCG/MIN Vancomycin HCl 1,250 mg/ 275 mls @ 166.667 mls/hr 09/01/21 13:00 09/01/21 12:43 Sodium Chloride IV 166.667 mls/hr Q24H WARD Administration Levofloxacin/Dextrose 750 mg in 150 mls @ 100 mls/hr 09/01/21 14:00 09/01/21 15:06 Levaquin 750mg/150ml IV 100 mls/hr Q24H WARD Administration Protocol Fluconazole 200 mg in 100 mls @ 100 mls/hr 09/01/21 20:00 09/01/21 21:09 Diflucan IV 09/14/21 20:59 100 mls/hr Q24H WARD Administration Protocol Aztreonam 2 gm in 100 mls @ 100 mls/hr 09/02/21 08:00 09/02/21 09:13 Azactam/Ns 2 Gm/100 Ml IV 100 mls/hr Q12H WARD Administration Protocol Insulin Human Regular 0 units 08/20/21 12:00 09/02/21 06:08 Insulin Regular, Human 100 Units/1 Ml SUB-Q Not Given Q6H [facility] Protocol Ketorolac Tromethamine 15 mg 09/01/21 16:00 Ketorolac 30 Mg/1 Ml Inj IV 09/06/21 15:59 Q8H PRN Pain, Moderate (4-6) Levothyroxine Sodium 75 mcg 09/01/21 13:00 09/02/21 05:48 Levothyroxine 100 Mcg Inj IV 75 mcg DAILY@0600 WARD Administration Nystatin 100,000 unit 08/28/21 08:00 09/02/21 09:12 Nystatin 500,000 Unit/5 Ml Oral Liqd PO 09/03/21 20:01 100,000 unit TID WARD Administration Ondansetron HCl 4 mg 08/19/21 04:50 Ondansetron 4 Mg/2 Ml Inj IV Q8H PRN Nausea And Vomiting Polyethylene Glycol 17 gm 08/30/21 10:00 09/01/21 10:44 Polyethylene Glycol 3350 17 Gm Powder PO Not Given QDAY WARD Senna 17.6 mg 08/29/21 22:00 09/01/21 21:08 Sennosides Oral Liqd 8.8 Mg/5 Ml Oral Liqd PO 17.6 mg Q12HR WARD Administration Sertraline HCl 25 mg 08/19/21 10:00 09/02/21 09:12 Sertraline 25 Mg Tab FEEDTUBE 25 mg QDAY WARD Administration Sodium Chloride 10 ml 08/19/21 10:00 09/02/21 09:13 Sodium Chloride 0.9% 10 Ml Flush Syringe IV 10 ml BID WARD Administration Sodium Chloride 10 ml 08/19/21 04:50 Sodium Chloride 0.9% 10 Ml Flush Syringe IV PRN PRN LINE FLUSH Sucralfate 1 gm 08/23/21 18:00 09/02/21 05:48 Sucralfate 1 Gm Tab FEEDTUBE 1 gm Q6HR WARD Administration Thiamine HCl 100 mg 08/19/21 10:00 09/02/21 09:12 Thiamine 100 Mg Tab FEEDTUBE 100 mg QDAY WARD Administration Tramadol HCl 50 mg 08/30/21 13:00 09/01/21 21:15 Tramadol 50 Mg Tab FEEDTUBE 50 mg Q6H PRN Administration Pain, Moderate (4-6) Nutrition/Malnutrition Assess - Dietary Evaluation Nutrition/Malnutrition Findings: Nutrition Notes Start: 08/19/21 10:13 Freq: Status: Active Protocol: Document 08/30/21 17:38 ABRAHAM (Rec: 08/30/21 18:00 ABRAHAM [email or web address]) Nutrition Notes Initial or Follow up Reassessment Current Diagnosis Hypertension,Respiratory Failure Other Pertinent Diagnosis s/p PEG Placement,Angioedema, Urinary Retention, Hypothyroidism, Depressio. Current Diet TF-Glucerna 1.2 Dieudonne @ 45 ml/hr (since D 08/23). Labs/Tests 08/30: BUN 21, Glu 129. Pertinent Medications 08/30: Folic acid, Levothyroxine, Thiamine, others nutritionally unremarkable. Height 4 ft 11 in Weight 74 kg [place] Body Weight (kg) 43.18 BMI 32.9 Weight change and time frame No body weight change reported in 1 week. Weight Status Obese Subjective/Other Information RD consult for routine F/U on TF tolerance. TF continues as prescribed, well tolerated. Pt continues on Mechanical Ventilation, O2 satureation @ 100%, according to Physical Assessment History notes. Pt continues to complain from constipation, according to Physical Assessment History notes. Percent of energy/protein needs met: Prescribed TF-Glucerna 1.2 Dieudonne @ 45 ml/hr provides for energy/protein needs (1,269 Kcal/65 g) during LOS, 94% Kcal; 70% AA. Burn Absent Trauma Absent GI Symptoms Constipation Difficulty In Swallowing,Chewing Food Allergy No Skin Integrity/Comment Assessment WNL. Current % PO Other Minimum of two criteria No #1 Nutrition Diagnosis Inadequate oral intake Diagnosis Progress(for reassessment Continues documentation) Is patient on ventilator? Yes Is Patient Ambulatory and/or Out of Bed No REE-([facility]-confined to bed) 1375.068 Kcal/Kg value to use for calculation 17 Approximate Energy Requirements Using 1258 kcal/Kg Calculation Used for Recommendations Kcal/kg Additional Notes Protein: 2 g/Kg IBW; 86 g/day. Fluids: 1 ml/Kcal, or as per MD. Nutrition Intervention Nutrition Support: Continue TF-Glucerna 1.2 Dieudonne @ 45 ml/hr. Flush: 70 ml water Q 4 hr, or as per MD. Kcal 1,269 Protein (gm) 65 Carbohydrates (gm) 124 Fat (gm) 65 Fluid (mL) 869 Fiber (gm) 17 % RDI: 94% Kcal; 70% AA. Goal #1 Provide at least 75% of energy /protein needs through Enteral Feeding during LOS. Goal #2 Maintain body weight within +/ -3% of admission body weight during LOS. Follow-Up By: 09/06/21 Additional Comments Continue monitoring, Ventilation status, TF tolerance and BM. <LEVI CONNELL - Last Filed: 09/07/21 16:48> Assessment and Plan Assessment and plan: I saw and evaluated the patient. Discussed with the nurse practitioner and agree with their findings and plan as documented in this note. Disposition Plan: ICU Total Time Spent with Patient (Minutes): 60 Hospitalist Physical - Constitutional Vitals: Temp Pulse Resp BP Pulse Ox 98.1 F 88 16 127/79 97 09/07/21 08:13 09/07/21 12:00 09/07/21 08:13 09/07/21 08:13 09/07/21 08:57 Results - Labs CBC & Chem 7: 09/07/21 06:00 09/07/21 06:00 Labs: Laboratory Last Values WBC 9.6 K/mm3 (4.5-11.0) 09/07/21 06:00 RBC 2.92 M/mm3 (3.65-5.03) L 09/07/21 06:00 Hgb 9.5 gm/dl (10.1-14.3) L 09/07/21 06:00 Hct 28.2 % (30.3-42.9) L 09/07/21 06:00 MCV 97 fl (79-97) 09/07/21 06:00 MCH 33 pg (28-32) H 09/07/21 06:00 MCHC 34 % (30-34) 09/07/21 06:00 RDW 15.2 % (13.2-15.2) 09/07/21 06:00 Plt Count 394 K/mm3 (140-440) 09/07/21 06:00 Lymph % (Auto) 30.6 % (13.4-35.0) 09/07/21 06:00 [place] % (Auto) 4.5 % (0.0-7.3) 09/07/21 06:00 Eos % (Auto) 5.7 % (0.0-4.3) H 09/07/21 06:00 Baso % (Auto) 1.3 % (0.0-1.8) 09/07/21 06:00 Lymph # (Auto) 2.9 K/mm3 (1.2-5.4) 09/07/21 06:00 [place] # (Auto) 0.4 K/mm3 (0.0-0.8) 09/07/21 06:00 Eos # (Auto) 0.5 K/mm3 (0.0-0.4) H 09/07/21 06:00 Baso # (Auto) 0.1 K/mm3 (0.0-0.1) 09/07/21 06:00 Add Manual Diff Complete 08/30/21 03:22 Total Counted 100 08/30/21 03:22 Seg Neutrophils % 57.9 % (40.0-70.0) 09/07/21 06:00 Seg Neuts % (Manual) 87.0 % (40.0-70.0) H 08/30/21 03:22 Band Neutrophils % 0 % 08/30/21 03:22 Lymphocytes % (Manual) 10.0 % (13.4-35.0) L 08/30/21 03:22 Reactive Lymphs % (Man) 0 % 08/30/21 03:22 Monocytes % (Manual) 3.0 % (0.0-7.3) 08/30/21 03:22 Eosinophils % (Manual) 0 % (0.0-4.3) 08/30/21 03:22 Basophils % (Manual) 0 % (0.0-1.8) 08/30/21 03:22 Metamyelocytes % 0 % 08/30/21 03:22 Myelocytes % 0 % 08/30/21 03:22 Promyelocytes % 0 % 08/30/21 03:22 Blast Cells % 0 % 08/30/21 03:22 Nucleated RBC % Not Reportable 08/30/21 03:22 Seg Neutrophils # 5.5 K/mm3 (1.8-7.7) 09/07/21 06:00 Seg Neutrophils # Man 17.7 K/mm3 (1.8-7.7) H 08/30/21 03:22 Band Neutrophils # 0.0 K/mm3 08/30/21 03:22 Lymphocytes # (Manual) 2.0 K/mm3 (1.2-5.4) 08/30/21 03:22 Abs React Lymphs (Man) 0.0 K/mm3 08/30/21 03:22 Monocytes # (Manual) 0.6 K/mm3 (0.0-0.8) 08/30/21 03:22 Eosinophils # (Manual) 0.0 K/mm3 (0.0-0.4) 08/30/21 03:22 Basophils # (Manual) 0.0 K/mm3 (0.0-0.1) 08/30/21 03:22 Metamyelocytes # 0.0 K/mm3 08/30/21 03:22 Myelocytes # 0.0 K/mm3 08/30/21 03:22 Promyelocytes # 0.0 K/mm3 08/30/21 03:22 Blast Cells # 0.0 K/mm3 08/30/21 03:22 WBC Morphology Not Reportable 08/30/21 03:22 Hypersegmented Neuts Not Reportable 08/30/21 03:22 Hyposegmented Neuts Not Reportable 08/30/21 03:22 Hypogranular Neuts Not Reportable 08/30/21 03:22 Smudge Cells Not Reportable 08/30/21 03:22 Toxic Granulation Not Reportable 08/30/21 03:22 Toxic Vacuolation Not Reportable 08/30/21 03:22 Dohle Bodies Not Reportable 08/30/21 03:22 Pelger-Huet Anomaly Not Reportable 08/30/21 03:22 Erik Rods Not Reportable 08/30/21 03:22 Platelet Estimate Consistent w auto 08/30/21 03:22 Clumped Platelets Not Reportable 08/30/21 03:22 Plt Clumps, EDTA Not Reportable 08/30/21 03:22 Large Platelets Not Reportable 08/30/21 03:22 Giant Platelets Not Reportable 08/30/21 03:22 Platelet Satelliting Not Reportable 08/30/21 03:22 Plt Morphology Comment Not Reportable 08/30/21 03:22 RBC Morphology Normal 08/30/21 03:22 Dimorphic RBCs Not Reportable 08/30/21 03:22 Polychromasia Not Reportable 08/30/21 03:22 Hypochromasia Not Reportable 08/30/21 03:22 Poikilocytosis Not Reportable 08/30/21 03:22 Anisocytosis Not Reportable 08/30/21 03:22 Microcytosis Not Reportable 08/30/21 03:22 Macrocytosis Not Reportable 08/30/21 03:22 Spherocytes Not Reportable 08/30/21 03:22 Pappenheimer Bodies Not Reportable 08/30/21 03:22 Sickle Cells Not Reportable 08/30/21 03:22 Target Cells Not Reportable 08/30/21 03:22 Tear Drop Cells Not Reportable 08/30/21 03:22 Ovalocytes Not Reportable 08/30/21 03:22 Helmet Cells Not Reportable 05/16/22 03:22 Rai-[place] Bodies Not Reportable 08/30/21 03:22 [place] Rings Not Reportable 08/30/21 03:22 [place] Cells Not Reportable 08/30/21 03:22 Bite Cells Not Reportable 08/30/21 03:22 Crenated Cell Not Reportable 08/30/21 03:22 Elliptocytes Not Reportable 08/30/21 03:22 Acanthocytes (Spur) Not Reportable 08/30/21 03:22 Rouleaux Not Reportable 08/30/21 03:22 Hemoglobin C Crystals Not Reportable 08/30/21 03:22 Schistocytes Not Reportable 08/30/21 03:22 Malaria parasites Not Reportable 08/30/21 03:22 Marco Bodies Not Reportable 08/30/21 03:22 Hem Pathologist Commnt No 08/30/21 03:22 PT 12.8 Sec. (12.2-14.9) 08/19/21 02:24 INR 0.87 (0.87-1.13) 08/19/21 02:24 APTT 20.0 Sec. (24.2-36.6) L 08/19/21 02:24 ABG pH 7.516 pH Units (7.350-7.450) H 08/27/21 03:56 POC ABG pCO2 30.1 mmHg (32.0-48.0) L 08/22/21 10:16 ABG pCO2 34.4 mm Hg 08/27/21 03:56 POC ABG pO2 109.5 mmHg (83-108) H 08/22/21 10:16 ABG pO2 117.0 mm Hg (80.0-90.0) H 08/27/21 03:56 POC ABG HCO3 23.5 08/22/21 10:16 ABG HCO3 27.2 mmol/L (20.0-26.0) H 08/27/21 03:56 ABG O2 Saturation 98.4 % (95.0-99.0) 08/27/21 03:56 ABG O2 Content 15.3 (0.0-44) 08/27/21 03:56 POC ABG Base Excess 1.2 08/22/21 10:16 ABG Base Excess 4.3 mmol/L (-2.0-3.0) H 08/27/21 03:56 ABG Hemoglobin 11.1 gm/dl (12.0-16.0) L 08/27/21 03:56 ABG Oxyhemoglobin 96.8 (94-98) 08/22/21 10:16 ABG Carboxyhemoglobin 1.0 % (0.0-5.0) 08/27/21 03:56 ABG Methemoglobin 0.5 % (0.0-1.5) 08/27/21 03:56 ABG Sodium Not Reportable 08/22/21 10:16 ABG Potassium Not Reportable 08/22/21 10:16 ABG Chloride Not Reportable 08/22/21 10:16 ABG Glucose Not Reportable 08/22/21 10:16 Oxyhemoglobin 96.9 % (95.0-99.0) 08/27/21 03:56 Carboxyhemoglobin 1.1 (0.5-1.5) 08/22/21 10:16 FiO2 40 % 08/27/21 03:56 FiO2 % 30.0 08/22/21 10:16 Sodium 136 mmol/L (137-145) L 09/07/21 06:00 Potassium 3.9 mmol/L (3.6-5.0) 09/07/21 06:00 Chloride 98.0 mmol/L (98-107) 09/07/21 06:00 Carbon Dioxide 28 mmol/L (22-30) D 09/07/21 06:00 Anion Gap 14 mmol/L 09/07/21 06:00 BUN 11 mg/dL (7-17) 09/07/21 06:00 Creatinine 0.6 mg/dL (0.6-1.2) 09/07/21 06:00 Estimated GFR > 60 ml/min 09/07/21 06:00 BUN/Creatinine Ratio 18 % 09/07/21 06:00 Glucose 111 mg/dL (65-100) H 09/07/21 06:00 POC Glucose 113 mg/dL (70-105) H 09/07/21 16:13 Calcium 10.3 mg/dL (8.4-10.2) H 09/07/21 06:00 Phosphorus 3.30 mg/dL (2.5-4.5) D 09/06/21 04:00 Magnesium 2.00 mg/dL (1.7-2.3) 09/06/21 04:00 Total Bilirubin 0.30 mg/dL (0.1-1.2) 09/04/21 04:15 AST 19 units/L (5-40) 09/04/21 04:15 ALT 16 units/L (7-56) 09/04/21 04:15 Alkaline Phosphatase 102 units/L (35-129) 09/04/21 04:15 C-Reactive Protein 29.40 mg/dL (0.00-1.30) H 09/02/21 04:08 Total Protein 6.6 g/dL (6.3-8.2) 09/04/21 04:15 Albumin 2.4 g/dL (3.9-5) L 09/04/21 04:15 Albumin/Globulin Ratio 0.6 % 09/04/21 04:15 Triglycerides 200 mg/dL (2-149) H 08/27/21 04:25 Procalcitonin 1.34 ng/mL (<0.15) 09/02/21 04:08 Arterial Blood Glucose Not Reportable 08/22/21 10:16 Nasal Screen MRSA (PCR) Negative (Negative) 09/01/21 12:15 Blood Type A POSITIVE 08/21/21 15:10 Lewis/IV: Voiding Method Indwelling Catheter Active Medications - Current Medications Current Medications: Generic Name Dose Route Start Last Admin Trade Name Freq PRN Reason Stop Dose Admin Acetaminophen 650 mg 08/19/21 06:00 09/02/21 14:20 Acetaminophen 325 Mg Tab FEEDTUBE 650 mg Q4H PRN Administration Fever >100.5/SAEED/MILD PAIN 1-3 Albuterol 2.5 mg 08/19/21 04:50 Albuterol 2.5 Mg/3 Ml Nebu IH Q3HRT PRN Shortness Of Breath Atorvastatin Calcium 10 mg 09/05/21 22:00 09/06/21 22:14 Atorvastatin 10 Mg Tab FEEDTUBE 10 mg QHS WARD Administration Buspirone HCl 10 mg 09/05/21 10:00 09/07/21 10:03 Buspirone 10 Mg Tab FEEDTUBE 10 mg BID WARD Administration Dextrose 50 ml 08/20/21 10:00 09/03/21 12:34 Dextrose 50% In Water (25gm) 50 Ml Syringe IV 15 ml Q30MIN PRN Administration Hypoglycemia Protocol Diphenhydramine HCl 25 mg 09/07/21 15:00 Diphenhydramine 25 Mg Cap PO Q8H PRN Itching Folic Acid 1 mg 09/05/21 10:00 09/07/21 10:03 Folic Acid 1 Mg Tab FEEDTUBE 1 mg QDAY WARD Administration Haloperidol Lactate 5 mg 08/29/21 09:58 09/03/21 17:39 Haloperidol Lactate 5 Mg/1 Ml Inj IV 5 mg Q6H PRN Administration Agitation Heparin Sodium (Porcine) 5,000 unit 08/19/21 10:00 09/07/21 10:03 Heparin 5,000 Unit/1 Ml Vial SUB-Q 5,000 unit Q12HR WARD Administration Hydralazine HCl 10 mg 08/19/21 05:03 08/24/21 18:09 Hydralazine 20 Mg/1 Ml Inj IV 10 mg Q6H PRN Administration SBP >/=160; DBP >/=100 Fluconazole 200 mg in 100 mls @ 100 mls/hr 09/01/21 20:00 09/06/21 20:50 Diflucan IV 09/14/21 20:59 100 mls/hr Q24H WARD Administration Protocol Insulin Human Regular 0 units 08/20/21 12:00 09/07/21 12:23 Insulin Regular, Human 100 Units/1 Ml SUB-Q Not Given Q6H [facility] Protocol Levothyroxine Sodium 150 mcg 09/07/21 12:00 09/07/21 13:26 Levothyroxine 150 Mcg Tab FEEDTUBE 150 mcg DAILY@0600 WARD Administration Lorazepam 0.25 mg 09/05/21 14:41 09/07/21 13:27 Lorazepam 0.5 Mg Tab FEEDTUBE 0.25 mg BID PRN Administration Agitation Mineral Oil 133 ml 09/05/21 08:49 Mineral Oil Enema 133 Ml ME QDAY PRN Constipation Ondansetron HCl 4 mg 08/19/21 04:50 Ondansetron 4 Mg/2 Ml Inj IV Q8H PRN Nausea And Vomiting Senna 8.8 mg 09/05/21 22:00 09/06/21 22:15 Sennosides Oral Liqd 8.8 Mg/5 Ml Oral Liqd FEEDTUBE 8.8 mg QHS WARD Administration Sodium Chloride 10 ml 08/19/21 10:00 09/07/21 10:04 Sodium Chloride 0.9% 10 Ml Flush Syringe IV 10 ml BID WARD Administration Sodium Chloride 10 ml 08/19/21 04:50 Sodium Chloride 0.9% 10 Ml Flush Syringe IV PRN PRN LINE FLUSH Sucralfate 1 gm 09/05/21 12:00 09/07/21 13:26 Sucralfate 1 Gm/10 Ml Oral Liqd FEEDTUBE 1 gm Q6HR WARD Administration Thiamine HCl 100 mg 09/05/21 10:00 09/07/21 10:04 Thiamine 100 Mg Tab FEEDTUBE 100 mg QDAY WARD Administration Tramadol HCl 50 mg 09/05/21 14:42 09/07/21 13:27 Tramadol 50 Mg Tab FEEDTUBE 50 mg Q4H PRN Administration Pain, Moderate (4-6) Nutrition/Malnutrition Assess - Dietary Evaluation Nutrition/Malnutrition Findings: Nutrition Notes Start: 08/19/21 10:13 Freq: Status: Active Protocol: Document 09/06/21 14:58 ABRAHAM (Rec: 09/06/21 15:18 ABRAHAM [id number]) Nutrition Notes Initial or Follow up Brief Note Current Diagnosis Hypertension,Respiratory Failure Other Pertinent Diagnosis s/p PEG Placement,Angioedema, Urinary Retention, Hypothyroidism, Depression Current Diet TF-Glucerna 1.2 Dieudonne @ 45 ml/hr (since 09/05). Height 4 ft 11 in Weight 74 kg [place] Body Weight (kg) 43.18 BMI 32.9 Weight change and time frame No body weight change reported in 12 days. Weight Status Obese Subjective/Other Information RD consult for routine F/U on resumed TF and tolerance. TF resumed on 09/05 and continues as prescribed, well tolerated, according to Progress notes. Pt on Trach-Tube, O2 saturation @ 98%, according to Physical Assessmet History notes. Pt has produced multiple BM, according to Progress notes. Pt to be discharged to SNF, awaiting placemernt, according to Progress notes. Percent of energy/protein needs met: Prescribed TF-Glucerna 1.2 Dieudonne @ 45 ml/hr provides for energy/protein needs (1,269 Kcal/65 g) during LOS, 94% Kcal; 70% AA. #1 Nutrition Diagnosis Inadequate oral intake Diagnosis Progress(for reassessment Continues documentation) Is patient on ventilator? Yes Is Patient Ambulatory and/or Out of Bed No REE-([place]-confined to bed) 1375.068 Kcal/Kg value to use for calculation 17 Approximate Energy Requirements Using 1258 kcal/Kg Calculation Used for Recommendations Kcal/kg Additional Notes Protein: 2 g/Kg IBW; 86 g/day. Fluids: 1 ml/Kcal, or as per MD. Nutrition Intervention Nutrition Support: Continue TF-Glucerna 1.2 Dieudonne @ 45 ml/hr. Flush: 70 ml water Q 4 hr, or as per MD. Kcal 1,269 Protein (gm) 65 Carbohydrates (gm) 124 Fat (gm) 65 Fluid (mL) 869 Fiber (gm) 17 % RDI: 94% Kcal; 70% AA. Goal #1 Provide at least 75% of energy /protein needs through Enteral Feeding during LOS. Goal #2 Maintain body weight within +/ -3% of admission body weight during LOS. Follow-Up By: 09/13/21 Additional Comments Continue monitoring, Ventilation status, TF tolerance and BM.
--- NOTE | 2021-09-02 10:42 | Progress Note ---
Assessment and Plan Cultures: 08/29/2021 blood culture: No growth 08/29/2021 tracheal aspirate culture: Usual respiratory david 09/01/2021 blood culture: In process 09/01/2021 tracheal aspirate culture: In process 09/02/2021 CRP 29.4 A/P: 76-year-old female with depression, hypothyroidism, HTN was admitted on 08/19/2021 with angioedema reportedly due to amlodipine. She was seen in the ER, intubated. She was extubated on 08/25/2021, developed stridor, was reintubated on 08/26/2021 and subsequently underwent tracheostomy and PEG tube placement: #Sepsis/SIRS, secondary to right lower lobe pneumonia, dislodged PEG tube: minimal pneumonia. Had removal of PEG tube, laparoscopic exploration, lysis of adhesions, staple closure of gastrostomy site on 09/01/2021. Also noted was possible esophageal candidiasis. #Angioedema #Acute respiratory failure: on the vent. #Penicillin allergy Recs: -Given documented penicillin allergy and patient being admitted for angioedema, avoid beta-lactam antibiotics -Minimal infiltrate in RLL. Continue empiric aztreonam, levofloxacin and vancomycin -Continue fluconazole for presumed esophageal candidiasis -Follow-up sputum culture -f/u MRSA nasal PCR, discontinue vancomycin if negative -CRP is high, f/u procalcitonin Kushal Ruvalcaba MD, FACP, [facility] O: [phone] F: [phone] C: [phone] Subjective Date of service: 09/02/21 Interval history: Low-grade temperatures present. Remains on the vent. Had removal of PEG tube, laparoscopic exploration, lysis of adhesions, staple closure of gastrostomy site on 09/01/2021 Objective - Exam Narrative Exam: Physical Exam: Constitutional: sedated, trached, on the vent Head, Ears, Nose: Normocephalic, atraumatic. External ears, nose normal Eyes: Conjunctivae/corneas clear. No icterus. No ptosis. Neck: Trach + Cardiovascular: S1, S2 + Respiratory: AE fair bilaterally GI: Soft, G-tube present Musculoskeletal: No pedal edema, no cyanosis. Skin: No rash or abscess Hem/Lymphatic: No palpable cervical or supraclavicular nodes. No lymphangitis Psych: no agitation Neurological: sedated, on the vent, exam limited - Constitutional Vitals: Vital Signs Temp Pulse Resp BP Pulse Ox 100.1 F H 100 H 30 H 148/95 99 09/02/21 03:55 09/02/21 08:01 09/02/21 07:41 09/02/21 08:01 09/02/21 08:01 Temperature -Last 24 Hours Temperature 100.1 F Temperature 98.3 F Temperature 98.1 F Temperature 98.9 F - Labs CBC & Chem 7: 09/02/21 04:08 09/02/21 04:08 Labs: Abnormal lab results 09/01/21 09/01/21 09/01/21 Range/Units 11:05 11:42 11:42 WBC 13.0 H (4.5-11.0) K/mm3 RBC 3.38 L (3.65-5.03) M/mm3 MCV 98 H (79-97) fl MCH (28-32) pg RDW (13.2-15.2) % Sodium (137-145) mmol/L Carbon Dioxide (22-30) mmol/L BUN 18 H (7-17) mg/dL Glucose 111 H (65-100) mg/dL POC Glucose 113 H (70-105) mg/dL C-Reactive Protein (0.00-1.30) mg/dL 09/01/21 09/02/21 09/02/21 Range/Units 23:40 04:08 04:08 WBC (4.5-11.0) K/mm3 RBC 3.30 L (3.65-5.03) M/mm3 MCV 98 H (79-97) fl MCH 33 H (28-32) pg RDW 15.6 H (13.2-15.2) % Sodium 132 L (137-145) mmol/L Carbon Dioxide 20 L (22-30) mmol/L BUN (7-17) mg/dL Glucose 131 H (65-100) mg/dL POC Glucose 139 H (70-105) mg/dL C-Reactive Protein 29.40 H (0.00-1.30) mg/dL 09/02/21 Range/Units 05:31 WBC (4.5-11.0) K/mm3 RBC (3.65-5.03) M/mm3 MCV (79-97) fl MCH (28-32) pg RDW (13.2-15.2) % Sodium (137-145) mmol/L Carbon Dioxide (22-30) mmol/L BUN (7-17) mg/dL Glucose (65-100) mg/dL POC Glucose 124 H (70-105) mg/dL C-Reactive Protein (0.00-1.30) mg/dL
--- NOTE | 2021-09-02 10:44 | Progress Note ---
Assessment and Plan Pt with angioedema.Patient status post laparoscopic exploration on 09/01/2021 for a large erosion in the anterior stomach from a PEG tube. Gastrostomy feeding tube revision done laparoscopically. Large erosion is closed with a stapler. O chester to resume feedings at this time. Subjective Date of service: 09/02/21 Narrative: Patient status post laparoscopic exploration on 09/01/2021 for a large erosion in the anterior stomach from a PEG tube. Gastrostomy feeding tube revision done laparoscopically. Large erosion is closed with a stapler. Okay to resume feedings at this time. Objective Vital Signs - 12hr 09/01/21 09/01/21 09/02/21 23:00 23:43 00:00 Temperature 98.3 F Pulse Rate 87 99 H 94 H Pulse Rate [ 86 From Monitor] Respiratory 23 23 23 Rate Blood Pressure 139/90 139/90 123/100 O2 Sat by Pulse 99 98 100 Oximetry O2 Sat by Pulse Oximetry [ Assessment] 09/02/21 09/02/21 09/02/21 00:18 01:00 02:00 Temperature Pulse Rate 96 H 99 H 98 H Pulse Rate [ From Monitor] Respiratory 4 L 21 20 Rate Blood Pressure 123/100 131/95 140/91 O2 Sat by Pulse 100 99 100 Oximetry O2 Sat by Pulse Oximetry [ Assessment] 09/02/21 09/02/21 09/02/21 03:00 03:55 04:00 Temperature 100.1 F H Pulse Rate 93 H 96 H Pulse Rate [ 86 From Monitor] Respiratory 20 20 Rate Blood Pressure 138/86 135/88 O2 Sat by Pulse 100 99 Oximetry O2 Sat by Pulse Oximetry [ Assessment] 09/02/21 09/02/21 09/02/21 04:08 05:00 06:00 Temperature Pulse Rate 98 H 95 H 97 H Pulse Rate [ From Monitor] Respiratory 0 L 20 Rate Blood Pressure 138/86 144/93 148/95 O2 Sat by Pulse 100 100 100 Oximetry O2 Sat by Pulse Oximetry [ Assessment] 09/02/21 09/02/21 09/02/21 07:01 07:41 08:00 Temperature Pulse Rate 103 H 98 H 100 H Pulse Rate [ From Monitor] Respiratory 30 H Rate Blood Pressure 148/95 O2 Sat by Pulse 100 99 Oximetry O2 Sat by Pulse 99 Oximetry [ Assessment] 0509/02/21 09/02/21 08:01 09:00 10:00 Temperature Pulse Rate 100 H 101 H 100 H Pulse Rate [ From Monitor] Respiratory Rate Blood Pressure 148/95 130/81 140/89 O2 Sat by Pulse 99 99 99 Oximetry O2 Sat by Pulse Oximetry [ Assessment] - Labs 09/02/21 04:08 09/02/21 04:08 Diabetes panel 09/01/21 09/02/21 Range/Units 11:42 04:08 Sodium 137 132 L (137-145) mmol/L Potassium 4.0 4.1 (3.6-5.0) mmol/L Chloride 101.2 99.9 (98-107) mmol/L Carbon Dioxide 22 20 L (22-30) mmol/L BUN 18 H 16 (7-17) mg/dL Creatinine 0.7 0.6 (0.6-1.2) mg/dL Glucose 111 H 131 H (65-100) mg/dL Calcium 9.9 9.5 (8.4-10.2) mg/dL Calcium panel 09/01/21 09/02/21 Range/Units 11:42 04:08 Calcium 9.9 9.5 (8.4-10.2) mg/dL Pituitary panel 09/01/21 09/02/21 Range/Units 11:42 04:08 Sodium 137 132 L (137-145) mmol/L Potassium 4.0 4.1 (3.6-5.0) mmol/L Chloride 101.2 99.9 (98-107) mmol/L Carbon Dioxide 22 20 L (22-30) mmol/L BUN 18 H 16 (7-17) mg/dL Creatinine 0.7 0.6 (0.6-1.2) mg/dL Glucose 111 H 131 H (65-100) mg/dL Calcium 9.9 9.5 (8.4-10.2) mg/dL Adrenal panel 09/01/21 09/02/21 Range/Units 11:42 04:08 Sodium 137 132 L (137-145) mmol/L Potassium 4.0 4.1 (3.6-5.0) mmol/L Chloride 101.2 99.9 (98-107) mmol/L Carbon Dioxide 22 20 L (22-30) mmol/L BUN 18 H 16 (7-17) mg/dL Creatinine 0.7 0.6 (0.6-1.2) mg/dL Glucose 111 H 131 H (65-100) mg/dL Calcium 9.9 9.5 (8.4-10.2) mg/dL
[2021-09-02] MEDS: SENNOSIDES ORAL LIQD 8.8 MG/5 ML ORAL LIQD PO SCH ×2 (11:09→22:43)
[2021-09-02] MEDS: DOCUSATE SODIUM 100 MG/10 ML ORAL LIQD PO SCH ×2 (11:09→22:43)
[2021-09-02] MEDS: POLYETHYLENE GLYCOL 3350 17 GM POWDER PO SCH (11:09)
--- NOTE | 2021-09-02 11:16 | Progress Note ---
Assessment and Plan 76 y/o female with acute respiratory failure secondary to angioedema 09/02/21: Resume feeding today. Tolerating PSV trial, if continues will attempt T-piece tomorrow. Restart Heparin. Guarded prognosis. Back on Diflucan 09/01/21: Hold on any weaning today. Hold heparin for 24 hours. Surgery spoke with IR, they will attempt to replace peg tube. Changed as many meds to IV as possible. ID has now been consulted so will defer all abx therapy to them. Guarded prognosis, family not at bedside this am. 08/31/21: Dropped PSV to 10/6, if tolerates then in a few hours place on T- piece. Rest on PSV tonight. Then 24 hours of T-piece tomorrow. Most likely transfer out of unit on . Will discuss urine situation with nursing staff. Voided and has had no issues so will not place lewis. Spiked a temp. Repeat cultures with next temperature spike and will start on Diflucan empirically for oral candidiasis. 08/30/21: Start bladder training q4 hours. All cultures negative thus far and no further temps. Given Mag Citrate today, if no BM in the next 24, will start some scheduled lactulose. Continue PSV as tolerated. 08/29/21: Agree with hernandez culture, hold on abx, remove lewis. Repeat CXR. Per nursing has not had bowel movement in at least 4 days. Check KUB. PSV trials to start soon 08/28/21: would like to get patient off of continuous sedation so will scheduled tramadol therapy with hopes of weaning Fent Drip. Will order fent 50Q2 PRN pain to help with this as well. Will likely need to be placed on bowel regimen to prevent constipation. Once off continuous drips, can start PSV trials. 08/27/21: Start using peg. Continue PRN fent pushes and will add PRN tramadol as well. Wean sedation off. Can start PSV trials as early as tomorrow. 1. Agree with IV steroids 2. Suggest adding scheduled benadryl and pepcid 3. If swelling does not improve in the next 24-48 hours, suggest a trial of FFP 4. Wean FiO2 for sats > 88% CCT 31 minutes Subjective Date of service: 09/02/21 Interval history: Patient went to OR yesterday and had peg replaced. Has bad esophagitis. Objective Vital Signs - 12hr 09/01/21 09/02/21 09/02/21 23:43 00:00 00:18 Temperature 98.3 F Pulse Rate 99 H 94 H 96 H Pulse Rate [ 86 From Monitor] Respiratory 23 23 4 L Rate Blood Pressure 139/90 123/100 123/100 O2 Sat by Pulse 98 100 100 Oximetry O2 Sat by Pulse Oximetry [ Assessment] 09/02/21 09/02/21 09/02/21 01:00 02:00 03:00 Temperature Pulse Rate 99 H 98 H 93 H Pulse Rate [ From Monitor] Respiratory 21 20 20 Rate Blood Pressure 131/95 140/91 138/86 O2 Sat by Pulse 99 100 100 Oximetry O2 Sat by Pulse Oximetry [ Assessment] 09/02/21 09/02/21 09/02/21 03:55 04:00 04:08 Temperature 100.1 F H Pulse Rate 96 H 98 H Pulse Rate [ 86 From Monitor] Respiratory 20 0 L Rate Blood Pressure 135/88 138/86 O2 Sat by Pulse 99 100 Oximetry O2 Sat by Pulse Oximetry [ Assessment] 09/02/21 09/02/21 09/02/21 05:00 06:00 07:01 Temperature Pulse Rate 95 H 97 H 103 H Pulse Rate [ From Monitor] Respiratory 20 Rate Blood Pressure 144/93 148/95 148/95 O2 Sat by Pulse 100 100 100 Oximetry O2 Sat by Pulse Oximetry [ Assessment] 09/02/21 09/02/21 09/02/21 07:41 08:00 08:01 Temperature Pulse Rate 98 H 100 H 100 H Pulse Rate [ From Monitor] Respiratory 30 H Rate Blood Pressure 148/95 O2 Sat by Pulse 99 99 Oximetry O2 Sat by Pulse 99 Oximetry [ Assessment] 09/02/21 09/02/21 09:00 10:00 Temperature Pulse Rate 101 H 100 H Pulse Rate [ From Monitor] Respiratory Rate Blood Pressure 130/81 140/89 O2 Sat by Pulse 99 99 Oximetry O2 Sat by Pulse Oximetry [ Assessment] Constitutional: no acute distress, other (Sedated) ENT: other (orally intubated, macroglossia) Neck: supple, no lymphadenopathy Effort: other (Supported on ventilator) Ascultation: Bilateral: clear Percussion: Bilateral: not dull Cardiovascular: regular rate and rhythm Gastrointestinal: normoactive bowel sounds Extremities: no cyanosis, no edema, pink and warm Neurologic: other (Sedated) Psychiatric: other (Sedated) CBC and BMP: 09/02/21 04:08 09/02/21 04:08 ABG, PT/INR, D-dimer: ABG ABG pH 7.516 pH Units (7.350-7.450) H 08/27/21 03:56 POC ABG pCO2 30.1 mmHg (32.0-48.0) L 08/22/21 10:16 ABG pCO2 34.4 mm Hg 08/27/21 03:56 POC ABG pO2 109.5 mmHg (83-108) H 08/22/21 10:16 ABG pO2 117.0 mm Hg (80.0-90.0) H 08/27/21 03:56 POC ABG HCO3 23.5 08/22/21 10:16 ABG O2 Saturation 98.4 % (95.0-99.0) 08/27/21 03:56 PT/INR, D-dimer PT 12.8 Sec. (12.2-14.9) 08/19/21 02:24 INR 0.87 (0.87-1.13) 08/19/21 02:24 Abnormal lab findings: Abnormal Labs 08/19/21 08/19/21 08/19/21 02:24 02:24 02:24 WBC 13.9 H RBC MCV 98 H MCH 33 H RDW 15.7 H Seg Neuts % (Manual) Lymphocytes % (Manual) 52.0 H Seg Neutrophils # Man Lymphocytes # (Manual) 7.2 H APTT 20.0 L ABG pH POC ABG pCO2 POC ABG pO2 ABG pO2 ABG HCO3 ABG O2 Saturation ABG Base Excess ABG Hemoglobin Oxyhemoglobin Sodium Potassium 3.3 L Chloride Carbon Dioxide 20 L BUN Glucose 143 H POC Glucose Calcium Phosphorus Magnesium C-Reactive Protein Total Protein 8.3 H Triglycerides 08/19/21 08/19/21 08/19/21 06:15 10:20 11:10 WBC RBC MCV MCH RDW Seg Neuts % (Manual) Lymphocytes % (Manual) Seg Neutrophils # Man Lymphocytes # (Manual) APTT ABG pH 7.465 H 7.503 H POC ABG pCO2 POC ABG pO2 ABG pO2 177.7 H 90.5 H ABG HCO3 ABG O2 Saturation 99.2 H ABG Base Excess ABG Hemoglobin Oxyhemoglobin Sodium Potassium Chloride Carbon Dioxide BUN Glucose POC Glucose 171 H Calcium Phosphorus Magnesium C-Reactive Protein Total Protein Triglycerides 08/19/21 08/20/21 08/20/21 16:33 00:03 04:25 WBC RBC MCV 98 H MCH 33 H RDW 15.9 H Seg Neuts % (Manual) 83.0 H Lymphocytes % (Manual) Seg Neutrophils # Man Lymphocytes # (Manual) APTT ABG pH POC ABG pCO2 POC ABG pO2 ABG pO2 ABG HCO3 ABG O2 Saturation ABG Base Excess ABG Hemoglobin Oxyhemoglobin Sodium Potassium Chloride Carbon Dioxide BUN Glucose POC Glucose 179 H 133 H Calcium Phosphorus Magnesium C-Reactive Protein Total Protein Triglycerides 08/20/21 08/20/21 08/20/21 04:25 04:30 05:39 WBC RBC MCV MCH RDW Seg Neuts % (Manual) Lymphocytes % (Manual) Seg Neutrophils # Man Lymphocytes # (Manual) APTT ABG pH POC ABG pCO2 POC ABG pO2 ABG pO2 95.5 H ABG HCO3 ABG O2 Saturation ABG Base Excess -2.2 L ABG Hemoglobin Oxyhemoglobin Sodium Potassium Chloride Carbon Dioxide 21 L BUN Glucose 143 H POC Glucose 168 H Calcium 8.2 L Phosphorus Magnesium C-Reactive Protein Total Protein Triglycerides 08/20/21 08/20/21 08/21/21 12:04 16:38 00:12 WBC RBC MCV MCH RDW Seg Neuts % (Manual) Lymphocytes % (Manual) Seg Neutrophils # Man Lymphocytes # (Manual) APTT ABG pH POC ABG pCO2 POC ABG pO2 ABG pO2 ABG HCO3 ABG O2 Saturation ABG Base Excess ABG Hemoglobin Oxyhemoglobin Sodium Potassium Chloride Carbon Dioxide BUN Glucose POC Glucose 151 H 135 H 123 H Calcium Phosphorus Magnesium C-Reactive Protein Total Protein Triglycerides 08/21/21 08/21/21 08/21/21 04:58 04:58 04:59 WBC RBC 3.64 L MCV 100 H MCH RDW 16.4 H Seg Neuts % (Manual) Lymphocytes % (Manual) Seg Neutrophils # Man Lymphocytes # (Manual) APTT ABG pH POC ABG pCO2 POC ABG pO2 ABG pO2 ABG HCO3 ABG O2 Saturation ABG Base Excess -2.6 L ABG Hemoglobin 11.6 L Oxyhemoglobin Sodium Potassium 3.5 L Chloride 109.5 H Carbon Dioxide 19 L BUN Glucose 159 H POC Glucose Calcium 8.3 L Phosphorus Magnesium C-Reactive Protein Total Protein Triglycerides 08/21/21 08/21/21 08/21/21 05:22 11:21 16:29 WBC RBC MCV MCH RDW Seg Neuts % (Manual) Lymphocytes % (Manual) Seg Neutrophils # Man Lymphocytes # (Manual) APTT ABG pH POC ABG pCO2 POC ABG pO2 ABG pO2 ABG HCO3 ABG O2 Saturation ABG Base Excess ABG Hemoglobin Oxyhemoglobin Sodium Potassium Chloride Carbon Dioxide BUN Glucose POC Glucose 143 H 133 H 122 H Calcium Phosphorus Magnesium C-Reactive Protein Total Protein Triglycerides 08/22/21 08/22/21 08/22/21 00:03 03:54 03:54 WBC RBC 3.53 L MCV 100 H MCH 33 H RDW 16.7 H Seg Neuts % (Manual) Lymphocytes % (Manual) Seg Neutrophils # Man Lymphocytes # (Manual) APTT ABG pH POC ABG pCO2 POC ABG pO2 ABG pO2 ABG HCO3 ABG O2 Saturation ABG Base Excess ABG Hemoglobin Oxyhemoglobin Sodium Potassium Chloride 107.5 H Carbon Dioxide BUN Glucose 123 H POC Glucose 132 H Calcium Phosphorus Magnesium C-Reactive Protein Total Protein Triglycerides 08/22/21 08/22/21 08/22/21 04:40 06:08 10:16 WBC RBC MCV MCH RDW Seg Neuts % (Manual) Lymphocytes % (Manual) Seg Neutrophils # Man Lymphocytes # (Manual) APTT ABG pH 7.454 H 7.511 H POC ABG pCO2 30.1 L POC ABG pO2 109.5 H ABG pO2 109.8 H ABG HCO3 ABG O2 Saturation ABG Base Excess ABG Hemoglobin Oxyhemoglobin Sodium Potassium Chloride Carbon Dioxide BUN Glucose POC Glucose 137 H Calcium Phosphorus Magnesium C-Reactive Protein Total Protein Triglycerides 08/22/21 08/22/21 08/22/21 10:27 10:27 11:13 WBC RBC MCV 99 H MCH RDW 16.6 H Seg Neuts % (Manual) Lymphocytes % (Manual) Seg Neutrophils # Man Lymphocytes # (Manual) APTT ABG pH POC ABG pCO2 POC ABG pO2 ABG pO2 ABG HCO3 ABG O2 Saturation ABG Base Excess ABG Hemoglobin Oxyhemoglobin Sodium Potassium Chloride Carbon Dioxide BUN Glucose 129 H POC Glucose 125 H Calcium Phosphorus Magnesium C-Reactive Protein Total Protein Triglycerides 08/22/21 08/23/21 08/23/21 23:39 04:11 04:11 WBC RBC MCV 98 H MCH 33 H RDW 16.1 H Seg Neuts % (Manual) Lymphocytes % (Manual) Seg Neutrophils # Man Lymphocytes # (Manual) APTT ABG pH POC ABG pCO2 POC ABG pO2 ABG pO2 ABG HCO3 ABG O2 Saturation ABG Base Excess ABG Hemoglobin Oxyhemoglobin Sodium Potassium Chloride Carbon Dioxide BUN Glucose 148 H POC Glucose 117 H Calcium Phosphorus Magnesium C-Reactive Protein Total Protein Triglycerides 08/23/21 08/23/21 08/23/21 05:32 11:02 18:04 WBC RBC MCV MCH RDW Seg Neuts % (Manual) Lymphocytes % (Manual) Seg Neutrophils # Man Lymphocytes # (Manual) APTT ABG pH POC ABG pCO2 POC ABG pO2 ABG pO2 ABG HCO3 ABG O2 Saturation ABG Base Excess ABG Hemoglobin Oxyhemoglobin Sodium Potassium Chloride Carbon Dioxide BUN Glucose POC Glucose 173 H 146 H 129 H Calcium Phosphorus Magnesium C-Reactive Protein Total Protein Triglycerides 08/24/21 08/24/21 08/24/21 00:27 05:20 06:00 WBC RBC MCV MCH RDW Seg Neuts % (Manual) Lymphocytes % (Manual) Seg Neutrophils # Man Lymphocytes # (Manual) APTT ABG pH 7.481 H POC ABG pCO2 POC ABG pO2 ABG pO2 95.8 H ABG HCO3 29.8 H ABG O2 Saturation ABG Base Excess 5.8 H ABG Hemoglobin Oxyhemoglobin Sodium Potassium Chloride Carbon Dioxide BUN Glucose POC Glucose 146 H 159 H Calcium Phosphorus Magnesium C-Reactive Protein Total Protein Triglycerides 08/24/21 08/25/21 08/25/21 11:37 05:13 11:38 WBC RBC MCV MCH RDW Seg Neuts % (Manual) Lymphocytes % (Manual) Seg Neutrophils # Man Lymphocytes # (Manual) APTT ABG pH POC ABG pCO2 POC ABG pO2 ABG pO2 ABG HCO3 ABG O2 Saturation ABG Base Excess ABG Hemoglobin Oxyhemoglobin Sodium Potassium Chloride Carbon Dioxide BUN Glucose POC Glucose 154 H 121 H 135 H Calcium Phosphorus Magnesium C-Reactive Protein Total Protein Triglycerides 08/25/21 08/25/21 08/26/21 16:00 17:12 00:04 WBC RBC MCV MCH RDW Seg Neuts % (Manual) Lymphocytes % (Manual) Seg Neutrophils # Man Lymphocytes # (Manual) APTT ABG pH POC ABG pCO2 POC ABG pO2 ABG pO2 78.3 L ABG HCO3 32.7 H ABG O2 Saturation ABG Base Excess 6.3 H ABG Hemoglobin 11.0 L Oxyhemoglobin 93.9 L Sodium Potassium Chloride Carbon Dioxide BUN Glucose POC Glucose 179 H 140 H Calcium Phosphorus Magnesium C-Reactive Protein Total Protein Triglycerides 08/26/21 08/26/21 08/26/21 04:22 04:59 04:59 WBC 12.9 H RBC 3.54 L MCV MCH RDW 15.6 H Seg Neuts % (Manual) Lymphocytes % (Manual) Seg Neutrophils # Man Lymphocytes # (Manual) APTT ABG pH 7.533 H POC ABG pCO2 POC ABG pO2 ABG pO2 76.9 L ABG HCO3 29.2 H ABG O2 Saturation ABG Base Excess 6.4 H ABG Hemoglobin 11.6 L Oxyhemoglobin Sodium Potassium 3.5 L Chloride Carbon Dioxide BUN 28 H Glucose 139 H POC Glucose Calcium Phosphorus Magnesium C-Reactive Protein Total Protein Triglycerides 08/26/21 08/26/21 08/26/21 05:34 11:21 16:52 WBC RBC MCV MCH RDW Seg Neuts % (Manual) Lymphocytes % (Manual) Seg Neutrophils # Man Lymphocytes # (Manual) APTT ABG pH POC ABG pCO2 POC ABG pO2 ABG pO2 ABG HCO3 ABG O2 Saturation ABG Base Excess ABG Hemoglobin Oxyhemoglobin Sodium Potassium Chloride Carbon Dioxide BUN Glucose POC Glucose 152 H 145 H 151 H Calcium Phosphorus Magnesium C-Reactive Protein Total Protein Triglycerides 08/27/21 08/27/21 08/27/21 03:56 04:25 04:25 WBC 12.4 H RBC 3.39 L MCV 98 H MCH RDW 15.8 H Seg Neuts % (Manual) Lymphocytes % (Manual) Seg Neutrophils # Man Lymphocytes # (Manual) APTT ABG pH 7.516 H POC ABG pCO2 POC ABG pO2 ABG pO2 117.0 H ABG HCO3 27.2 H ABG O2 Saturation ABG Base Excess 4.3 H ABG Hemoglobin 11.1 L Oxyhemoglobin Sodium Potassium Chloride Carbon Dioxide BUN 27 H Glucose POC Glucose Calcium Phosphorus 2.10 L Magnesium 2.50 H C-Reactive Protein Total Protein Triglycerides 08/27/21 08/27/21 08/27/21 04:25 17:31 23:37 WBC RBC MCV MCH RDW Seg Neuts % (Manual) Lymphocytes % (Manual) Seg Neutrophils # Man Lymphocytes # (Manual) APTT ABG pH POC ABG pCO2 POC ABG pO2 ABG pO2 ABG HCO3 ABG O2 Saturation ABG Base Excess ABG Hemoglobin Oxyhemoglobin Sodium Potassium Chloride Carbon Dioxide BUN Glucose POC Glucose 111 H 122 H Calcium Phosphorus Magnesium C-Reactive Protein Total Protein Triglycerides 200 H 08/28/21 08/28/21 08/28/21 04:11 04:11 05:01 WBC 17.2 H RBC 3.29 L MCV 99 H MCH RDW 16.2 H Seg Neuts % (Manual) Lymphocytes % (Manual) Seg Neutrophils # Man Lymphocytes # (Manual) APTT ABG pH POC ABG pCO2 POC ABG pO2 ABG pO2 ABG HCO3 ABG O2 Saturation ABG Base Excess ABG Hemoglobin Oxyhemoglobin Sodium Potassium Chloride 109.2 H Carbon Dioxide BUN 22 H Glucose 137 H POC Glucose 133 H Calcium Phosphorus Magnesium C-Reactive Protein Total Protein Triglycerides 08/28/21 08/28/21 08/29/21 11:18 17:34 00:37 WBC RBC MCV MCH RDW Seg Neuts % (Manual) Lymphocytes % (Manual) Seg Neutrophils # Man Lymphocytes # (Manual) APTT ABG pH POC ABG pCO2 POC ABG pO2 ABG pO2 ABG HCO3 ABG O2 Saturation ABG Base Excess ABG Hemoglobin Oxyhemoglobin Sodium Potassium Chloride Carbon Dioxide BUN Glucose POC Glucose 144 H 131 H 125 H Calcium Phosphorus Magnesium C-Reactive Protein Total Protein Triglycerides 08/29/21 08/29/21 08/29/21 04:12 04:12 06:17 WBC 22.7 H RBC 3.35 L MCV 98 H MCH RDW 16.0 H Seg Neuts % (Manual) Lymphocytes % (Manual) Seg Neutrophils # Man Lymphocytes # (Manual) APTT ABG pH POC ABG pCO2 POC ABG pO2 ABG pO2 ABG HCO3 ABG O2 Saturation ABG Base Excess ABG Hemoglobin Oxyhemoglobin Sodium Potassium Chloride Carbon Dioxide BUN 19 H Glucose 121 H POC Glucose 117 H Calcium Phosphorus Magnesium C-Reactive Protein Total Protein Triglycerides 08/29/21 08/29/21 08/30/21 11:54 18:00 00:17 WBC RBC MCV MCH RDW Seg Neuts % (Manual) Lymphocytes % (Manual) Seg Neutrophils # Man Lymphocytes # (Manual) APTT ABG pH POC ABG pCO2 POC ABG pO2 ABG pO2 ABG HCO3 ABG O2 Saturation ABG Base Excess ABG Hemoglobin Oxyhemoglobin Sodium Potassium Chloride Carbon Dioxide BUN Glucose POC Glucose 123 H 117 H 115 H Calcium Phosphorus Magnesium C-Reactive Protein Total Protein Triglycerides 08/30/21 08/30/21 08/30/21 03:22 03:22 11:05 WBC 20.3 H RBC 3.29 L MCV MCH RDW 15.6 H Seg Neuts % (Manual) 87.0 H Lymphocytes % (Manual) 10.0 L Seg Neutrophils # Man 17.7 H Lymphocytes # (Manual) APTT ABG pH POC ABG pCO2 POC ABG pO2 ABG pO2 ABG HCO3 ABG O2 Saturation ABG Base Excess ABG Hemoglobin Oxyhemoglobin Sodium Potassium Chloride Carbon Dioxide BUN 21 H Glucose 129 H POC Glucose 110 H Calcium Phosphorus Magnesium C-Reactive Protein Total Protein Triglycerides 08/31/21 08/31/21 08/31/21 00:10 05:26 05:26 WBC 13.2 H RBC 3.28 L MCV MCH RDW 15.9 H Seg Neuts % (Manual) Lymphocytes % (Manual) Seg Neutrophils # Man Lymphocytes # (Manual) APTT ABG pH POC ABG pCO2 POC ABG pO2 ABG pO2 ABG HCO3 ABG O2 Saturation ABG Base Excess ABG Hemoglobin Oxyhemoglobin Sodium Potassium Chloride Carbon Dioxide BUN 23 H Glucose 123 H POC Glucose 138 H Calcium Phosphorus Magnesium C-Reactive Protein Total Protein Triglycerides 08/31/21 08/31/21 08/31/21 06:13 11:27 17:19 WBC RBC MCV MCH RDW Seg Neuts % (Manual) Lymphocytes % (Manual) Seg Neutrophils # Man Lymphocytes # (Manual) APTT ABG pH POC ABG pCO2 POC ABG pO2 ABG pO2 ABG HCO3 ABG O2 Saturation ABG Base Excess ABG Hemoglobin Oxyhemoglobin Sodium Potassium Chloride Carbon Dioxide BUN Glucose POC Glucose 135 H 149 H 152 H Calcium Phosphorus Magnesium C-Reactive Protein Total Protein Triglycerides 08/31/21 09/01/21 09/01/21 23:29 05:43 11:05 WBC RBC MCV MCH RDW Seg Neuts % (Manual) Lymphocytes % (Manual) Seg Neutrophils # Man Lymphocytes # (Manual) APTT ABG pH POC ABG pCO2 POC ABG pO2 ABG pO2 ABG HCO3 ABG O2 Saturation ABG Base Excess ABG Hemoglobin Oxyhemoglobin Sodium Potassium Chloride Carbon Dioxide BUN Glucose POC Glucose 121 H 119 H 113 H Calcium Phosphorus Magnesium C-Reactive Protein Total Protein Triglycerides 09/01/21 09/01/21 09/01/21 11:42 11:42 23:40 WBC 13.0 H RBC 3.38 L MCV 98 H MCH RDW Seg Neuts % (Manual) Lymphocytes % (Manual) Seg Neutrophils # Man Lymphocytes # (Manual) APTT ABG pH POC ABG pCO2 POC ABG pO2 ABG pO2 ABG HCO3 ABG O2 Saturation ABG Base Excess ABG Hemoglobin Oxyhemoglobin Sodium Potassium Chloride Carbon Dioxide BUN 18 H Glucose 111 H POC Glucose 139 H Calcium Phosphorus Magnesium C-Reactive Protein Total Protein Triglycerides 09/02/21 09/02/21 09/02/21 04:08 04:08 05:31 WBC RBC 3.30 L MCV 98 H MCH 33 H RDW 15.6 H Seg Neuts % (Manual) Lymphocytes % (Manual) Seg Neutrophils # Man Lymphocytes # (Manual) APTT ABG pH POC ABG pCO2 POC ABG pO2 ABG pO2 ABG HCO3 ABG O2 Saturation ABG Base Excess ABG Hemoglobin Oxyhemoglobin Sodium 132 L Potassium Chloride Carbon Dioxide 20 L BUN Glucose 131 H POC Glucose 124 H Calcium Phosphorus Magnesium C-Reactive Protein 29.40 H Total Protein Triglycerides
[2021-09-02] MEDS: VANCOMYCIN 1,250 MG in SODIUM CHLORIDE 0.9% 250ML 250 ML IV SCH (14:19)
[2021-09-02] MEDS: ACETAMINOPHEN 325 MG TAB FEEDTUBE PRN (14:20)
[2021-09-02] MEDS: KETOROLAC 30 MG/1 ML INJ IV PRN ×2 (16:38→22:12)
[2021-09-02] MEDS: AZTREONAM/NS 2 GM/100 ML 2 GM/100 ML VIAL IV SCH (17:46)
[2021-09-02] MEDS ORDERED: DEXTROSE 5% IN WATER 1,000 ML IV SCH (18:00)
[2021-09-02] MEDS: FLUCONAZOLE 200 MG 200 MG/100 ML BAG IV SCH (20:17)
[2021-09-03] MEDS: AZTREONAM/NS 2 GM/100 ML 2 GM/100 ML VIAL IV SCH ×2 (00:31→10:22)
[2021-09-03] MEDS: KETOROLAC 30 MG/1 ML INJ IV PRN (03:46)
[2021-09-03] MEDS: INSULIN REGULAR, HUMAN 100 UNITS/1 ML SUB-Q SCH ×3 (05:45→17:45)
[2021-09-03] MEDS: LEVOTHYROXINE 100 MCG INJ IV SCH (06:40)
[2021-09-03] MEDS: SUCRALFATE 1 GM TAB FEEDTUBE SCH ×3 (06:44→17:06)
[2021-09-03] MEDS: NYSTATIN 500,000 UNIT/5 ML ORAL LIQD PO SCH ×3 (09:02→22:01)
[2021-09-03] MEDS: FAMOTIDINE 20 MG/2 ML INJ IV SCH ×2 (09:18→22:03)
[2021-09-03] MEDS: HEPARIN 5,000 UNIT/1 ML VIAL SUB-Q SCH ×2 (09:18→22:03)
[2021-09-03] MEDS: SERTRALINE 25 MG TAB FEEDTUBE SCH (09:19)
[2021-09-03] MEDS: busPIRone 10 MG TAB FEEDTUBE SCH ×2 (09:19→22:02)
[2021-09-03] MEDS: POLYETHYLENE GLYCOL 3350 17 GM POWDER PO SCH (09:19)
[2021-09-03] MEDS: MULTIVITAMIN / MINERAL ORAL LIQUID 15 ML FEEDTUBE SCH (09:19)
[2021-09-03] MEDS: DOCUSATE SODIUM 100 MG/10 ML ORAL LIQD PO SCH ×2 (09:19→22:05)
[2021-09-03] MEDS: SENNOSIDES ORAL LIQD 8.8 MG/5 ML ORAL LIQD PO SCH ×2 (09:19→22:03)
[2021-09-03] MEDS: FOLIC ACID 1 MG TAB FEEDTUBE SCH (09:19)
[2021-09-03] MEDS: THIAMINE 100 MG TAB FEEDTUBE SCH (09:19)
[2021-09-03 09:53] LABS: Blood Urea Nitrogen 19 mg/dL (7-17); Calcium 9.5 mg/dL (8.4-10.2); Hemolysis Index 4
[2021-09-03 09:54] LABS: Hemoglobin 9.5 gm/dl (10.1-14.3); Mean Corpuscular HGB Conc 33 % (30-34); Mean Corpuscular Volume 97 fl (79-97); Platelet Count 271 K/mm3 (140-440); Red Blood Count 2.99 M/mm3 (3.65-5.03); Red Cell Distribution Width 15.6 % (13.2-15.2)
[2021-09-03 10:18] LABS: BUN/Creatinine Ratio 27
--- NOTE | 2021-09-03 10:24 | Progress Note ---
Assessment and Plan Cultures: 08/29/2021 blood culture: No growth 08/29/2021 tracheal aspirate culture: Usual respiratory david 09/01/2021 blood culture: In process 09/01/2021 tracheal aspirate culture: Usual respiratory david 09/02/2021 CRP 29.4 Procalcitonin 1.34 MRSA nasal PCR: Negative A/P: 76-year-old female with depression, hypothyroidism, HTN was admitted on 08/19/2021 with angioedema reportedly due to amlodipine. She was seen in the ER, intubated. She was extubated on 08/25/2021, developed stridor, was reintubated on 08/26/2021 and subsequently underwent tracheostomy and PEG tube placement: #Sepsis/SIRS, secondary to right lower lobe pneumonia, dislodged PEG tube: minimal pneumonia. Had removal of PEG tube, laparoscopic exploration, lysis of adhesions, staple closure of gastrostomy site on 09/01/2021. Also noted was possible esophageal candidiasis. #Angioedema #Acute respiratory failure: on the vent. #Penicillin allergy Recs: -MRSA nasal PCR: Negative, vancomycin discontinued -ET aspirate culture growing usual resp david, aztreonam discontinued -Continue levofloxacin x 5 days total -Continue fluconazole for presumed esophageal candidiasis, D2 of 14 Kushal Ruvalcaba MD, FACP, [facility] O: [phone] F: [phone] C: [phone] Subjective Date of service: 09/03/21 Interval history: Afebrile. Remains on the vent. No new complaints / events. Objective - Exam Narrative Exam: Physical Exam: Constitutional: sedated, trached, on the vent Head, Ears, Nose: Normocephalic, atraumatic. External ears, nose normal Eyes: Conjunctivae/corneas clear. No icterus. No ptosis. Neck: Trach + Cardiovascular: S1, S2 + Respiratory: AE fair bilaterally GI: Soft, dressing + Musculoskeletal: No pedal edema, no cyanosis. Skin: No rash or abscess Hem/Lymphatic: No palpable cervical or supraclavicular nodes. No lymphangitis Psych: no agitation Neurological: sedated, on the vent, exam limited - Constitutional Vitals: Vital Signs Temp Pulse Resp BP Pulse Ox 98.2 F 69 24 90/47 100 09/03/21 03:49 09/03/21 08:10 09/03/21 08:10 09/03/21 08:10 09/03/21 08:10 Temperature -Last 24 Hours Temperature 98.2 F Temperature 98.2 F Temperature 98.2 F Temperature 97.8 F Temperature 99.8 F - Labs CBC & Chem 7: 09/03/21 09:09 09/03/21 09:09 Labs: Abnormal lab results 09/02/21 09/03/21 09/03/21 Range/Units 17:37 09:09 09:09 WBC 11.9 H (4.5-11.0) K/mm3 RBC 2.99 L (3.65-5.03) M/mm3 Hgb 9.5 L (10.1-14.3) gm/dl Hct 29.0 L (30.3-42.9) % RDW 15.6 H (13.2-15.2) % Sodium 133 L (137-145) mmol/L BUN 19 H (7-17) mg/dL POC Glucose 108 H (70-105) mg/dL
--- NOTE | 2021-09-03 10:52 | XRay Report ---
ABDOMEN 2 VIEW(S) INDICATION / CLINICAL INFORMATION: constipation. COMPARISON: CT abdomen/pelvis from 09/01/21 FINDINGS: TUBES / LINES: A catheter is in place overlying the abdomen with tip terminating in the left upper qu adrant. BOWEL GAS PATTERN: No significant abnormality. FREE AIR / EXTRALUMINAL GAS: None seen. ADDITIONAL FINDINGS: No significant additional findings. IMPRESSION: 1. No significant abnormality. Signer Name: William Madden MD Signed: 09/03/2021 10:48 AM Workstation Name: [id number]
[2021-09-03] MEDS: D5W/0.45% NACL 1,000 ML IV SCH (12:03)
[2021-09-03] MEDS: MINERAL OIL ENEMA 133 ML PR SCH (12:05)
--- NOTE | 2021-09-03 13:16 | Progress Note ---
Assessment and Plan 76 y/o female with acute respiratory failure secondary to angioedema 09/03/21: Enema today. Await surgery eval and recs. Continue T-piece and only rest on PSV if absolutely needed. Abx per ID 09/02/21: Resume feeding today. Tolerating PSV trial, if continues will attempt T-piece tomorrow. Restart Heparin. Guarded prognosis. Back on Diflucan 09/01/21: Hold on any weaning today. Hold heparin for 24 hours. Surgery spoke with IR, they will attempt to replace peg tube. Changed as many meds to IV as possible. ID has now been consulted so will defer all abx therapy to them. Guarded prognosis, family not at bedside this am. 08/31/21: Dropped PSV to 10/6, if tolerates then in a few hours place on T- piece. Rest on PSV tonight. Then 24 hours of T-piece tomorrow. Most likely transfer out of unit on . Will discuss urine situation with nursing staff. Voided and has had no issues so will not place lewis. Spiked a temp. Repeat cultures with next temperature spike and will start on Diflucan empirically for oral candidiasis. 08/30/21: Start bladder training q4 hours. All cultures negative thus far and no further temps. Given Mag Citrate today, if no BM in the next 24, will start some scheduled lactulose. Continue PSV as tolerated. 08/29/21: Agree with hernandez culture, hold on abx, remove lewis. Repeat CXR. Per nursing has not had bowel movement in at least 4 days. Check KUB. PSV trials to start soon 08/28/21: would like to get patient off of continuous sedation so will scheduled tramadol therapy with hopes of weaning Fent Drip. Will order fent 50Q2 PRN pain to help with this as well. Will likely need to be placed on bowel regimen to prevent constipation. Once off continuous drips, can start PSV trials. 08/27/21: Start using peg. Continue PRN fent pushes and will add PRN tramadol as well. Wean sedation off. Can start PSV trials as early as tomorrow. 1. Agree with IV steroids 2. Suggest adding scheduled benadryl and pepcid 3. If swelling does not improve in the next 24-48 hours, suggest a trial of FFP 4. Wean FiO2 for sats > 88% CCT 31 minutes Subjective Date of service: 09/03/21 Interval history: Currently on T-piece and tolerating. Per staff some bilious leaking around the peg site. Surgery aware of this. Currently feeds on hold and peg tube is not being used. Still has not had a BM Objective Vital Signs - 12hr 09/03/21 09/03/21 09/03/21 02:00 03:00 03:49 Temperature 98.2 F Pulse Rate Pulse Rate [ From Monitor] Pulse Rate [ 78 76 Radial] Respiratory 17 18 Rate Blood Pressure 88/50 95/58 O2 Sat by Pulse 100 100 Oximetry O2 Sat by Pulse Oximetry [ Assessment] 09/03/21 09/03/21 09/03/21 03:50 04:00 04:18 Temperature Pulse Rate 75 Pulse Rate [ From Monitor] Pulse Rate [ 71 Radial] Respiratory 26 H 24 Rate Blood Pressure 90/55 92/58 O2 Sat by Pulse 100 98 100 Oximetry O2 Sat by Pulse Oximetry [ Assessment] 09/03/21 09/03/21 09/03/21 04:38 05:00 06:00 Temperature Pulse Rate 74 74 69 Pulse Rate [ From Monitor] Pulse Rate [ Radial] Respiratory 23 16 14 Rate Blood Pressure 87/49 87/51 O2 Sat by Pulse 98 99 100 Oximetry O2 Sat by Pulse Oximetry [ Assessment] 09/03/21 09/03/21 09/03/21 07:00 08:00 08:10 Temperature Pulse Rate 70 70 69 Pulse Rate [ 70 From Monitor] Pulse Rate [ Radial] Respiratory 16 14 24 Rate Blood Pressure 88/54 90/47 90/47 O2 Sat by Pulse 99 100 100 Oximetry O2 Sat by Pulse Oximetry [ Assessment] 09/03/21 09/03/21 09/03/21 09:00 10:00 10:20 Temperature Pulse Rate 69 71 89 Pulse Rate [ From Monitor] Pulse Rate [ Radial] Respiratory 23 27 H Rate Blood Pressure 98/54 116/65 116/65 O2 Sat by Pulse 100 100 100 Oximetry O2 Sat by Pulse Oximetry [ Assessment] 09/03/21 09/03/21 09/03/21 10:25 11:00 12:00 Temperature Pulse Rate 90 88 Pulse Rate [ From Monitor] Pulse Rate [ Radial] Respiratory 20 26 H Rate Blood Pressure 131/62 105/59 O2 Sat by Pulse 95 99 Oximetry O2 Sat by Pulse 100 Oximetry [ Assessment] Constitutional: no acute distress, other (Sedated) ENT: other (orally intubated, macroglossia) Neck: supple, no lymphadenopathy Effort: other (Supported on ventilator) Ascultation: Bilateral: clear Percussion: Bilateral: not dull Cardiovascular: regular rate and rhythm Gastrointestinal: normoactive bowel sounds Extremities: no cyanosis, no edema, pink and warm Neurologic: other (Sedated) Psychiatric: other (Sedated) CBC and BMP: 09/03/21 09:09 09/03/21 09:09 ABG, PT/INR, D-dimer: ABG ABG pH 7.516 pH Units (7.350-7.450) H 08/27/21 03:56 POC ABG pCO2 30.1 mmHg (32.0-48.0) L 08/22/21 10:16 ABG pCO2 34.4 mm Hg 08/27/21 03:56 POC ABG pO2 109.5 mmHg (83-108) H 08/22/21 10:16 ABG pO2 117.0 mm Hg (80.0-90.0) H 08/27/21 03:56 POC ABG HCO3 23.5 08/22/21 10:16 ABG O2 Saturation 98.4 % (95.0-99.0) 08/27/21 03:56 PT/INR, D-dimer PT 12.8 Sec. (12.2-14.9) 08/19/21 02:24 INR 0.87 (0.87-1.13) 08/19/21 02:24 Abnormal lab findings: Abnormal Labs 08/19/21 08/19/21 08/19/21 02:24 02:24 02:24 WBC 13.9 H RBC Hgb Hct MCV 98 H MCH 33 H RDW 15.7 H Seg Neuts % (Manual) Lymphocytes % (Manual) 52.0 H Seg Neutrophils # Man Lymphocytes # (Manual) 7.2 H APTT 20.0 L ABG pH POC ABG pCO2 POC ABG pO2 ABG pO2 ABG HCO3 ABG O2 Saturation ABG Base Excess ABG Hemoglobin Oxyhemoglobin Sodium Potassium 3.3 L Chloride Carbon Dioxide 20 L BUN Glucose 143 H POC Glucose Calcium Phosphorus Magnesium C-Reactive Protein Total Protein 8.3 H Triglycerides 05/05/22 05/05/22 05/05/22 06:15 10:20 11:10 WBC RBC Hgb Hct MCV MCH RDW Seg Neuts % (Manual) Lymphocytes % (Manual) Seg Neutrophils # Man Lymphocytes # (Manual) APTT ABG pH 7.465 H 7.503 H POC ABG pCO2 POC ABG pO2 ABG pO2 177.7 H 90.5 H ABG HCO3 ABG O2 Saturation 99.2 H ABG Base Excess ABG Hemoglobin Oxyhemoglobin Sodium Potassium Chloride Carbon Dioxide BUN Glucose POC Glucose 171 H Calcium Phosphorus Magnesium C-Reactive Protein Total Protein Triglycerides 08/19/21 08/20/21 08/20/21 16:33 00:03 04:25 WBC RBC Hgb Hct MCV 98 H MCH 33 H RDW 15.9 H Seg Neuts % (Manual) 83.0 H Lymphocytes % (Manual) Seg Neutrophils # Man Lymphocytes # (Manual) APTT ABG pH POC ABG pCO2 POC ABG pO2 ABG pO2 ABG HCO3 ABG O2 Saturation ABG Base Excess ABG Hemoglobin Oxyhemoglobin Sodium Potassium Chloride Carbon Dioxide BUN Glucose POC Glucose 179 H 133 H Calcium Phosphorus Magnesium C-Reactive Protein Total Protein Triglycerides 08/20/21 08/20/21 08/20/21 04:25 04:30 05:39 WBC RBC Hgb Hct MCV MCH RDW Seg Neuts % (Manual) Lymphocytes % (Manual) Seg Neutrophils # Man Lymphocytes # (Manual) APTT ABG pH POC ABG pCO2 POC ABG pO2 ABG pO2 95.5 H ABG HCO3 ABG O2 Saturation ABG Base Excess -2.2 L ABG Hemoglobin Oxyhemoglobin Sodium Potassium Chloride Carbon Dioxide 21 L BUN Glucose 143 H POC Glucose 168 H Calcium 8.2 L Phosphorus Magnesium C-Reactive Protein Total Protein Triglycerides 08/20/21 08/20/21 08/21/21 12:04 16:38 00:12 WBC RBC Hgb Hct MCV MCH RDW Seg Neuts % (Manual) Lymphocytes % (Manual) Seg Neutrophils # Man Lymphocytes # (Manual) APTT ABG pH POC ABG pCO2 POC ABG pO2 ABG pO2 ABG HCO3 ABG O2 Saturation ABG Base Excess ABG Hemoglobin Oxyhemoglobin Sodium Potassium Chloride Carbon Dioxide BUN Glucose POC Glucose 151 H 135 H 123 H Calcium Phosphorus Magnesium C-Reactive Protein Total Protein Triglycerides 08/21/21 08/21/2122 04:58 04:58 04:59 WBC RBC 3.64 L Hgb Hct MCV 100 H MCH RDW 16.4 H Seg Neuts % (Manual) Lymphocytes % (Manual) Seg Neutrophils # Man Lymphocytes # (Manual) APTT ABG pH POC ABG pCO2 POC ABG pO2 ABG pO2 ABG HCO3 ABG O2 Saturation ABG Base Excess -2.6 L ABG Hemoglobin 11.6 L Oxyhemoglobin Sodium Potassium 3.5 L Chloride 109.5 H Carbon Dioxide 19 L BUN Glucose 159 H POC Glucose Calcium 8.3 L Phosphorus Magnesium C-Reactive Protein Total Protein Triglycerides 08/21/21 08/21/21 08/21/21 05:22 11:21 16:29 WBC RBC Hgb Hct MCV MCH RDW Seg Neuts % (Manual) Lymphocytes % (Manual) Seg Neutrophils # Man Lymphocytes # (Manual) APTT ABG pH POC ABG pCO2 POC ABG pO2 ABG pO2 ABG HCO3 ABG O2 Saturation ABG Base Excess ABG Hemoglobin Oxyhemoglobin Sodium Potassium Chloride Carbon Dioxide BUN Glucose POC Glucose 143 H 133 H 122 H Calcium Phosphorus Magnesium C-Reactive Protein Total Protein Triglycerides 08/22/21 08/22/21 08/22/21 00:03 03:54 03:54 WBC RBC 3.53 L Hgb Hct MCV 100 H MCH 33 H RDW 16.7 H Seg Neuts % (Manual) Lymphocytes % (Manual) Seg Neutrophils # Man Lymphocytes # (Manual) APTT ABG pH POC ABG pCO2 POC ABG pO2 ABG pO2 ABG HCO3 ABG O2 Saturation ABG Base Excess ABG Hemoglobin Oxyhemoglobin Sodium Potassium Chloride 107.5 H Carbon Dioxide BUN Glucose 123 H POC Glucose 132 H Calcium Phosphorus Magnesium C-Reactive Protein Total Protein Triglycerides 08/22/21 08/22/21 08/22/21 04:40 06:08 10:16 WBC RBC Hgb Hct MCV MCH RDW Seg Neuts % (Manual) Lymphocytes % (Manual) Seg Neutrophils # Man Lymphocytes # (Manual) APTT ABG pH 7.454 H 7.511 H POC ABG pCO2 30.1 L POC ABG pO2 109.5 H ABG pO2 109.8 H ABG HCO3 ABG O2 Saturation ABG Base Excess ABG Hemoglobin Oxyhemoglobin Sodium Potassium Chloride Carbon Dioxide BUN Glucose POC Glucose 137 H Calcium Phosphorus Magnesium C-Reactive Protein Total Protein Triglycerides 08/22/21 08/22/21 08/22/21 10:27 10:27 11:13 WBC RBC Hgb Hct MCV 99 H MCH RDW 16.6 H Seg Neuts % (Manual) Lymphocytes % (Manual) Seg Neutrophils # Man Lymphocytes # (Manual) APTT ABG pH POC ABG pCO2 POC ABG pO2 ABG pO2 ABG HCO3 ABG O2 Saturation ABG Base Excess ABG Hemoglobin Oxyhemoglobin Sodium Potassium Chloride Carbon Dioxide BUN Glucose 129 H POC Glucose 125 H Calcium Phosphorus Magnesium C-Reactive Protein Total Protein Triglycerides 08/22/21 08/23/21 08/23/21 23:39 04:11 04:11 WBC RBC Hgb Hct MCV 98 H MCH 33 H RDW 16.1 H Seg Neuts % (Manual) Lymphocytes % (Manual) Seg Neutrophils # Man Lymphocytes # (Manual) APTT ABG pH POC ABG pCO2 POC ABG pO2 ABG pO2 ABG HCO3 ABG O2 Saturation ABG Base Excess ABG Hemoglobin Oxyhemoglobin Sodium Potassium Chloride Carbon Dioxide BUN Glucose 148 H POC Glucose 117 H Calcium Phosphorus Magnesium C-Reactive Protein Total Protein Triglycerides 08/23/21 08/23/21 08/23/21 05:32 11:02 18:04 WBC RBC Hgb Hct MCV MCH RDW Seg Neuts % (Manual) Lymphocytes % (Manual) Seg Neutrophils # Man Lymphocytes # (Manual) APTT ABG pH POC ABG pCO2 POC ABG pO2 ABG pO2 ABG HCO3 ABG O2 Saturation ABG Base Excess ABG Hemoglobin Oxyhemoglobin Sodium Potassium Chloride Carbon Dioxide BUN Glucose POC Glucose 173 H 146 H 129 H Calcium Phosphorus Magnesium C-Reactive Protein Total Protein Triglycerides 08/24/21 08/24/21 08/24/21 00:27 05:20 06:00 WBC RBC Hgb Hct MCV MCH RDW Seg Neuts % (Manual) Lymphocytes % (Manual) Seg Neutrophils # Man Lymphocytes # (Manual) APTT ABG pH 7.481 H POC ABG pCO2 POC ABG pO2 ABG pO2 95.8 H ABG HCO3 29.8 H ABG O2 Saturation ABG Base Excess 5.8 H ABG Hemoglobin Oxyhemoglobin Sodium Potassium Chloride Carbon Dioxide BUN Glucose POC Glucose 146 H 159 H Calcium Phosphorus Magnesium C-Reactive Protein Total Protein Triglycerides 08/24/21 08/25/21 08/25/21 11:37 05:13 11:38 WBC RBC Hgb Hct MCV MCH RDW Seg Neuts % (Manual) Lymphocytes % (Manual) Seg Neutrophils # Man Lymphocytes # (Manual) APTT ABG pH POC ABG pCO2 POC ABG pO2 ABG pO2 ABG HCO3 ABG O2 Saturation ABG Base Excess ABG Hemoglobin Oxyhemoglobin Sodium Potassium Chloride Carbon Dioxide BUN Glucose POC Glucose 154 H 121 H 135 H Calcium Phosphorus Magnesium C-Reactive Protein Total Protein Triglycerides 08/25/21 08/25/21 08/26/21 16:00 17:12 00:04 WBC RBC Hgb Hct MCV MCH RDW Seg Neuts % (Manual) Lymphocytes % (Manual) Seg Neutrophils # Man Lymphocytes # (Manual) APTT ABG pH POC ABG pCO2 POC ABG pO2 ABG pO2 78.3 L ABG HCO3 32.7 H ABG O2 Saturation ABG Base Excess 6.3 H ABG Hemoglobin 11.0 L Oxyhemoglobin 93.9 L Sodium Potassium Chloride Carbon Dioxide BUN Glucose POC Glucose 179 H 140 H Calcium Phosphorus Magnesium C-Reactive Protein Total Protein Triglycerides 08/26/21 08/26/21 08/26/21 04:22 04:59 04:59 WBC 12.9 H RBC 3.54 L Hgb Hct MCV MCH RDW 15.6 H Seg Neuts % (Manual) Lymphocytes % (Manual) Seg Neutrophils # Man Lymphocytes # (Manual) APTT ABG pH 7.533 H POC ABG pCO2 POC ABG pO2 ABG pO2 76.9 L ABG HCO3 29.2 H ABG O2 Saturation ABG Base Excess 6.4 H ABG Hemoglobin 11.6 L Oxyhemoglobin Sodium Potassium 3.5 L Chloride Carbon Dioxide BUN 28 H Glucose 139 H POC Glucose Calcium Phosphorus Magnesium C-Reactive Protein Total Protein Triglycerides 08/26/21 08/26/21 08/26/21 05:34 11:21 16:52 WBC RBC Hgb Hct MCV MCH RDW Seg Neuts % (Manual) Lymphocytes % (Manual) Seg Neutrophils # Man Lymphocytes # (Manual) APTT ABG pH POC ABG pCO2 POC ABG pO2 ABG pO2 ABG HCO3 ABG O2 Saturation ABG Base Excess ABG Hemoglobin Oxyhemoglobin Sodium Potassium Chloride Carbon Dioxide BUN Glucose POC Glucose 152 H 145 H 151 H Calcium Phosphorus Magnesium C-Reactive Protein Total Protein Triglycerides 08/27/21 08/27/21 08/27/21 03:56 04:25 04:25 WBC 12.4 H RBC 3.39 L Hgb Hct MCV 98 H MCH RDW 15.8 H Seg Neuts % (Manual) Lymphocytes % (Manual) Seg Neutrophils # Man Lymphocytes # (Manual) APTT ABG pH 7.516 H POC ABG pCO2 POC ABG pO2 ABG pO2 117.0 H ABG HCO3 27.2 H ABG O2 Saturation ABG Base Excess 4.3 H ABG Hemoglobin 11.1 L Oxyhemoglobin Sodium Potassium Chloride Carbon Dioxide BUN 27 H Glucose POC Glucose Calcium Phosphorus 2.10 L Magnesium 2.50 H C-Reactive Protein Total Protein Triglycerides 08/27/21 08/27/21 08/27/21 04:25 17:31 23:37 WBC RBC Hgb Hct MCV MCH RDW Seg Neuts % (Manual) Lymphocytes % (Manual) Seg Neutrophils # Man Lymphocytes # (Manual) APTT ABG pH POC ABG pCO2 POC ABG pO2 ABG pO2 ABG HCO3 ABG O2 Saturation ABG Base Excess ABG Hemoglobin Oxyhemoglobin Sodium Potassium Chloride Carbon Dioxide BUN Glucose POC Glucose 111 H 122 H Calcium Phosphorus Magnesium C-Reactive Protein Total Protein Triglycerides 200 H 08/28/21 08/28/21 08/28/21 04:11 04:11 05:01 WBC 17.2 H RBC 3.29 L Hgb Hct MCV 99 H MCH RDW 16.2 H Seg Neuts % (Manual) Lymphocytes % (Manual) Seg Neutrophils # Man Lymphocytes # (Manual) APTT ABG pH POC ABG pCO2 POC ABG pO2 ABG pO2 ABG HCO3 ABG O2 Saturation ABG Base Excess ABG Hemoglobin Oxyhemoglobin Sodium Potassium Chloride 109.2 H Carbon Dioxide BUN 22 H Glucose 137 H POC Glucose 133 H Calcium Phosphorus Magnesium C-Reactive Protein Total Protein Triglycerides 08/28/21 08/28/21 08/29/21 11:18 17:34 00:37 WBC RBC Hgb Hct MCV MCH RDW Seg Neuts % (Manual) Lymphocytes % (Manual) Seg Neutrophils # Man Lymphocytes # (Manual) APTT ABG pH POC ABG pCO2 POC ABG pO2 ABG pO2 ABG HCO3 ABG O2 Saturation ABG Base Excess ABG Hemoglobin Oxyhemoglobin Sodium Potassium Chloride Carbon Dioxide BUN Glucose POC Glucose 144 H 131 H 125 H Calcium Phosphorus Magnesium C-Reactive Protein Total Protein Triglycerides 08/29/21 08/29/21 08/29/21 04:12 04:12 06:17 WBC 22.7 H RBC 3.35 L Hgb Hct MCV 98 H MCH RDW 16.0 H Seg Neuts % (Manual) Lymphocytes % (Manual) Seg Neutrophils # Man Lymphocytes # (Manual) APTT ABG pH POC ABG pCO2 POC ABG pO2 ABG pO2 ABG HCO3 ABG O2 Saturation ABG Base Excess ABG Hemoglobin Oxyhemoglobin Sodium Potassium Chloride Carbon Dioxide BUN 19 H Glucose 121 H POC Glucose 117 H Calcium Phosphorus Magnesium C-Reactive Protein Total Protein Triglycerides 08/29/21 08/29/21 08/30/21 11:54 18:00 00:17 WBC RBC Hgb Hct MCV MCH RDW Seg Neuts % (Manual) Lymphocytes % (Manual) Seg Neutrophils # Man Lymphocytes # (Manual) APTT ABG pH POC ABG pCO2 POC ABG pO2 ABG pO2 ABG HCO3 ABG O2 Saturation ABG Base Excess ABG Hemoglobin Oxyhemoglobin Sodium Potassium Chloride Carbon Dioxide BUN Glucose POC Glucose 123 H 117 H 115 H Calcium Phosphorus Magnesium C-Reactive Protein Total Protein Triglycerides 08/30/21 08/30/21 08/30/21 03:22 03:22 11:05 WBC 20.3 H RBC 3.29 L Hgb Hct MCV MCH RDW 15.6 H Seg Neuts % (Manual) 87.0 H Lymphocytes % (Manual) 10.0 L Seg Neutrophils # Man 17.7 H Lymphocytes # (Manual) APTT ABG pH POC ABG pCO2 POC ABG pO2 ABG pO2 ABG HCO3 ABG O2 Saturation ABG Base Excess ABG Hemoglobin Oxyhemoglobin Sodium Potassium Chloride Carbon Dioxide BUN 21 H Glucose 129 H POC Glucose 110 H Calcium Phosphorus Magnesium C-Reactive Protein Total Protein Triglycerides 08/31/21 08/31/21 08/31/21 00:10 05:26 05:26 WBC 13.2 H RBC 3.28 L Hgb Hct MCV MCH RDW 15.9 H Seg Neuts % (Manual) Lymphocytes % (Manual) Seg Neutrophils # Man Lymphocytes # (Manual) APTT ABG pH POC ABG pCO2 POC ABG pO2 ABG pO2 ABG HCO3 ABG O2 Saturation ABG Base Excess ABG Hemoglobin Oxyhemoglobin Sodium Potassium Chloride Carbon Dioxide BUN 23 H Glucose 123 H POC Glucose 138 H Calcium Phosphorus Magnesium C-Reactive Protein Total Protein Triglycerides 08/31/21 08/31/21 08/31/21 06:13 11:27 17:19 WBC RBC Hgb Hct MCV MCH RDW Seg Neuts % (Manual) Lymphocytes % (Manual) Seg Neutrophils # Man Lymphocytes # (Manual) APTT ABG pH POC ABG pCO2 POC ABG pO2 ABG pO2 ABG HCO3 ABG O2 Saturation ABG Base Excess ABG Hemoglobin Oxyhemoglobin Sodium Potassium Chloride Carbon Dioxide BUN Glucose POC Glucose 135 H 149 H 152 H Calcium Phosphorus Magnesium C-Reactive Protein Total Protein Triglycerides 08/31/21 09/01/21 09/01/21 23:29 05:43 11:05 WBC RBC Hgb Hct MCV MCH RDW Seg Neuts % (Manual) Lymphocytes % (Manual) Seg Neutrophils # Man Lymphocytes # (Manual) APTT ABG pH POC ABG pCO2 POC ABG pO2 ABG pO2 ABG HCO3 ABG O2 Saturation ABG Base Excess ABG Hemoglobin Oxyhemoglobin Sodium Potassium Chloride Carbon Dioxide BUN Glucose POC Glucose 121 H 119 H 113 H Calcium Phosphorus Magnesium C-Reactive Protein Total Protein Triglycerides 09/01/21 09/01/21 09/01/21 11:42 11:42 23:40 WBC 13.0 H RBC 3.38 L Hgb Hct MCV 98 H MCH RDW Seg Neuts % (Manual) Lymphocytes % (Manual) Seg Neutrophils # Man Lymphocytes # (Manual) APTT ABG pH POC ABG pCO2 POC ABG pO2 ABG pO2 ABG HCO3 ABG O2 Saturation ABG Base Excess ABG Hemoglobin Oxyhemoglobin Sodium Potassium Chloride Carbon Dioxide BUN 18 H Glucose 111 H POC Glucose 139 H Calcium Phosphorus Magnesium C-Reactive Protein Total Protein Triglycerides 09/02/21 09/02/21 09/02/21 04:08 04:08 05:31 WBC RBC 3.30 L Hgb Hct MCV 98 H MCH 33 H RDW 15.6 H Seg Neuts % (Manual) Lymphocytes % (Manual) Seg Neutrophils # Man Lymphocytes # (Manual) APTT ABG pH POC ABG pCO2 POC ABG pO2 ABG pO2 ABG HCO3 ABG O2 Saturation ABG Base Excess ABG Hemoglobin Oxyhemoglobin Sodium 132 L Potassium Chloride Carbon Dioxide 20 L BUN Glucose 131 H POC Glucose 124 H Calcium Phosphorus Magnesium C-Reactive Protein 29.40 H Total Protein Triglycerides 09/02/21 09/03/21 09/03/21 17:37 09:09 09:09 WBC 11.9 H RBC 2.99 L Hgb 9.5 L Hct 29.0 L MCV MCH RDW 15.6 H Seg Neuts % (Manual) Lymphocytes % (Manual) Seg Neutrophils # Man Lymphocytes # (Manual) APTT ABG pH POC ABG pCO2 POC ABG pO2 ABG pO2 ABG HCO3 ABG O2 Saturation ABG Base Excess ABG Hemoglobin Oxyhemoglobin Sodium 133 L Potassium Chloride Carbon Dioxide BUN 19 H Glucose POC Glucose 108 H Calcium Phosphorus Magnesium C-Reactive Protein Total Protein Triglycerides 09/03/21 12:00 WBC RBC Hgb Hct MCV MCH RDW Seg Neuts % (Manual) Lymphocytes % (Manual) Seg Neutrophils # Man Lymphocytes # (Manual) APTT ABG pH POC ABG pCO2 POC ABG pO2 ABG pO2 ABG HCO3 ABG O2 Saturation ABG Base Excess ABG Hemoglobin Oxyhemoglobin Sodium Potassium Chloride Carbon Dioxide BUN Glucose POC Glucose 64 L Calcium Phosphorus Magnesium C-Reactive Protein Total Protein Triglycerides
--- NOTE | 2021-09-03 15:37 | Progress Note ---
<SHITALRAQUEL MckennaGideon - Last Filed: 09/03/21 15:39> Assessment and Plan Assessment and plan: This is a 76-year-old female with hypertension, depression and hypothyroidism admitted with angioedema and intubated for airway protection Neuro: h/o depression -Restart home thiamine, multivitamin, Zoloft, BuSpar and as needed Xanax -Tramadol prn -Avoid delirium -Reorientation as needed -Maintain sleep-wake cycle -As needed analgesia Cardiac: h/o htn -Blood pressure monitoring per protocol -Hydralazine as needed -resume home antihypertenisve regimen when available and if needed -NS bolus x 1 Liter on 08/20 Respiratory: Acute hypoxic respiratory failure, angioedema -CCM consulted, appreciate recommendations -Intubated in the emergency department on 08/19 with 7.50 ETT at 24 the lips, extubated 08/25 but reintubated shortly after -s/p trach and peg 08/26 -T piece trials -VAP bundle -SPO2 monitoring -s/p Benadryl, Pepcid, Solu-Medrol GI: MO, malpositioned peg tube -s/p peg 08/26 -24 hours -300 mL -PPI -NTR consulted for tube feedings -BR: Senna,colace, miralax -08/29 suppository, 08/30 mag citrate, 08/31 lactulose q2 -CT abd/pelvis shows misposition of PEG -IR consult by surgery for replacement in IR lab under flouro -S/p 09/01 EGD, removal of PEG tube, laparoscopic exploration, lysis of adhesions, stable closure of gastrotomy site, placement of gastric tube 20 [place] -Noted to have bilious drainage, currently on LIS -TPN to be started : Urinary retention -Strict intake and output -Renally dose medications -Avoid nephrotoxic medications -Daily weights -Trend BMP -Lewis reinserted -bladder scan and training ID: Sepsis/SIRS secondary to right lower lobe pneumonia, discharged PEG tube, Intra-Op finding of esophageal candidiasis -Seen on CT A/P -ID consulted, appreciate recommendations -Per ID: Sputum culture growing usual respiratory david and aztreonam discontinued -Vancomycin discontinued as MRSA PCR negative -Antibiotic therapy: Levofloxacin for 5 days and fluconazole for 14 days -f/u blood culture -Monitor WBC and temperature curve Endo: h/o hypothyroidism -continue synthroid -Avoid hypoglycemia -SSI -Accu-Cheks q. 6 Heme: Leukocytosis -Trend CBC -Transfuse hemoglobin less than 7 -Monitor for signs of bleeding -SCDs to BLE while in bed -heparin subq The high probability of a clinically significant, sudden or life threatening deterioration of the [resp] system(s) required my full and direct attention, intervention and personal management. The aggregate critical care time was [60] minutes. This time is in addition to time spent performing reported procedures but includes the following: [x] Data Review and interpretation [x] Patient assessment and monitoring of vital signs [x] Documentation [x] Medication orders and management Disposition Plan: icu Total Time Spent with Patient (Minutes): 60 History Interval history: This is a 76-year-old female with HTN, depression, hypothyroidism who presented to the emergency department on 08/19 via EMS with angioedema reportedly caused by amlodipine however the patient was able to maintain her airway. Per documentation patient was given patient was given 50 mg of IV Benadryl, 0.5 mg epinephrine, 125 mg of IV Solu-Medrol by EMS. At 0235 patient was intubated in the emergency department. Patient was admitted to the hospitalist service with angioedema and mechanical ventilation for airway protection with consults to [facility]. Hospital course to date: 08/19: Patient started on tube feedings, potassium repleted, started on Benadryl and propofol for sedation. SSI started. Air leak present today however due to swelling of the tongue we will hold off extubation. [facility] plans to try FFP in the a.m. if swelling not better. 08/20: Angioedema slightly better so we will hold off FFP today. Updated son at bedside but he did not know what medication she was taking and states that she has not had angioedema in the past. Patient still remains on Versed and propofol. Was given 500 mL bolus overnight for hypotension and will repeat for hypotension. 08/21: Leak test today at bedside with RT shows no leak and will give FFP today. Tongue looks a bit smaller today but given no leak, [facility] will not extubate today. Sedated with propofol and versed. Son at bedside today. 08/22: RT performed leak test in the AM and stated there was a leak noted and placed the patient on CPAP. She was sedated on versed at 4 and propofol at 30 but these are off for CPAP. Will removed lewis. Received FFP yesterday. Angioedema is improved. Leak test performed again with Dr. Bailey and no leak audible. Switched back to AC and sedation restarted 08/23: Remains on the vent and sedated. Cuff leak assessed again today by [facility], still no significant air leak noted. Per CCM keep patient intubated and sedated and continue IV steroids and histamine therapy for now. Fentanyl gtt added, plan to wean off versed for RASS goal of 0 to -1. 08/24: Arousable and appropriate on the vent and on low dose sedation. No cuff leak again today per RT. D/W [facility] plan for CT neck w/o contrast for further eval. If CT neck normal, PSV trial and possible extubation tomorrow. 08/25: S/p extubation this am, audible stridor appreciated. S/p X2 doses of RaceEpi and IV solumedrol X1 dose. Patient currently stable on 4L NC, SPO2 at 94%. Patient is low threshold for re-intubation, case discussed with anesthesia in case of any decompensation. D/w [facility] patient will need a trach if she is reintubated. Plan of care was thoroughly discussed with patient's son at the bedside by the concrete engineer. All question and concerns were addressed at this time. 08/26: Reintubated yesterday due to stridor. General Surgery consulted, plan for possible trach and PEG today. Hypotension resolved this am most likely due to sedation for intubation, VSS today. Wean SPO2 as tolerated for SPO2 above 90%. Continue to monitor and replete electrolytes as needed. 08/27: s/p Trach and PEG overnight. Patient is stable on the vent this am, sedated on propofol and fentanyl. okay to use PEG-tube per general surgery, resume TF as ordered. PRN Analgesia added for pain control, wean off sedation as tolerated. Plan for possible PSV trial tomorrow. 08/28: Stable on the vent, still on sedation. Schedule tramadol and PRN fentanyl added for pain control, plan to wean sedation as tolerated. Possible PSV trial tomorrow if off sedation. PRN Xanax for anxiety. BR added for constipation. 08/29: Back on propofol from overnight due to increase anxiety. Patient is awake and calm this am, will D/C propofol and use PRN Xanax as needed for anxiety. Continue schedule tramadol and PRN fentanyl for pain control. Patient with increase secretion today, orally and via trach. Patient is also febrile with spike in WBCs, Chest XR ordered and will panculture. Hold off IV abx for now. Will also remove lewis catheter, straight/cath and bladder scan per protocol. 08/30: Ordered mag citrate today as suppositories do not yield any results yesterday, will start bladder training today. Remains afebrile. PSV per RT. 08/31: D/w Dr Jenkins, will attempt t peice trial for 24 hrs. Ultimately dispo for this patient will be SNF if able to tolerate trial. Paged in afternoon regarding projectile vomiting. No residual noted in PEG tube. KUB ordered. Will likely order Mag citrate as patient has not had BM. 09/01: This AM noted to have bleeding from trach site and peg tube noted to be misplaced with brown drainage. Dr. Mays alerted and came to bedside. RT states suture was removed from trach which stopped the bleeding. Neck and Abd/Pelvis CT ordered. Abd CT showed pef displacement and surgery contacted vascular surgery who will take the patient to IR. Stat CBC and BMP obtained. ID consulted re PCN allergy and sputum culture sent re concern for Pseudumonas in trach aspirate. meds changed to iv 09/02-patient seen at bedside. Awake-she reports coughing and asking for cough medicine. Pt is s/p peg placement. Pt is NPO and on gently IV fluid for hydration. Will start feeding per surgery. Reviewed lab and v/s. Patient not in acute distress. I discussed plan of care with Dr Jenkins-will restart tube feeding, Heprin subcutaneous, continue IV diflucan and f/u with ID reces for abx. Will continue PS [id number] T-piece tomorrow if patient is stable. 09/03: Patient having bilious drainage from PEG tube entrance site, awaiting surgery around. Started on mineral enemas, T-max 102, aztreonam IV, then discontinued, RN to monitor disimpact the patient. Patient will be started on TPN. PICC consult for PICC Hospitalist Physical - Constitutional Vitals: Temp Pulse Resp BP Pulse Ox 99.5 F 86 30 H 106/70 100 09/03/21 12:00 09/03/21 14:00 09/03/21 14:00 09/03/21 14:00 09/03/21 14:00 General appearance: Present: no acute distress, well-nourished, obese - EENT Eyes: Present: PERRL, EOM intact ENT: hearing intact, clear oral mucosa - Neck Neck: Present: supple, normal ROM - Respiratory Respiratory effort: normal Respiratory: bilateral: diminished - Cardiovascular Rhythm: regular Heart Sounds: Present: S1 & S2. Absent: systolic murmur, diastolic murmur - Extremities Extremities: no ischemia, pulses intact, pulses symmetrical, No edema, normal temperature, normal color, Full ROM Peripheral Pulses: within normal limits - Abdominal General gastrointestinal: soft, non-tender, non-distended, normal bowel sounds - Integumentary Integumentary: Present: warm, dry - Psychiatric Psychiatric: cooperative - Neurologic Neurologic: CNII-XII intact, no focal deficits, moves all extremities - Allied Health Allied health notes reviewed: nursing, RT, social work Results - Labs CBC & Chem 7: 09/03/21 09:09 09/03/21 09:09 Labs: Laboratory Last Values WBC 11.9 K/mm3 (4.5-11.0) H 09/03/21 09:09 RBC 2.99 M/mm3 (3.65-5.03) L 09/03/21 09:09 Hgb 9.5 gm/dl (10.1-14.3) L 09/03/21 09:09 Hct 29.0 % (30.3-42.9) L 09/03/21 09:09 MCV 97 fl (79-97) 09/03/21 09:09 MCH 32 pg (28-32) 09/03/21 09:09 MCHC 33 % (30-34) 09/03/21 09:09 RDW 15.6 % (13.2-15.2) H 09/03/21 09:09 Plt Count 271 K/mm3 (140-440) 09/03/21 09:09 Lymph # (Auto) Recycling Manager 08/19/21 02:24 Add Manual Diff Complete 08/30/21 03:22 Total Counted 100 08/30/21 03:22 Seg Neuts % (Manual) 87.0 % (40.0-70.0) H 08/30/21 03:22 Band Neutrophils % 0 % 08/30/21 03:22 Lymphocytes % (Manual) 10.0 % (13.4-35.0) L 08/30/21 03:22 Reactive Lymphs % (Man) 0 % 08/30/21 03:22 Monocytes % (Manual) 3.0 % (0.0-7.3) 08/30/21 03:22 Eosinophils % (Manual) 0 % (0.0-4.3) 08/30/21 03:22 Basophils % (Manual) 0 % (0.0-1.8) 08/30/21 03:22 Metamyelocytes % 0 % 08/30/21 03:22 Myelocytes % 0 % 08/30/21 03:22 Promyelocytes % 0 % 08/30/21 03:22 Blast Cells % 0 % 08/30/21 03:22 Nucleated RBC % Not Reportable 08/30/21 03:22 Seg Neutrophils # Man 17.7 K/mm3 (1.8-7.7) H 08/30/21 03:22 Band Neutrophils # 0.0 K/mm3 08/30/21 03:22 Lymphocytes # (Manual) 2.0 K/mm3 (1.2-5.4) 08/30/21 03:22 Abs React Lymphs (Man) 0.0 K/mm3 08/30/21 03:22 Monocytes # (Manual) 0.6 K/mm3 (0.0-0.8) 08/30/21 03:22 Eosinophils # (Manual) 0.0 K/mm3 (0.0-0.4) 08/30/21 03:22 Basophils # (Manual) 0.0 K/mm3 (0.0-0.1) 08/30/21 03:22 Metamyelocytes # 0.0 K/mm3 08/30/21 03:22 Myelocytes # 0.0 K/mm3 08/30/21 03:22 Promyelocytes # 0.0 K/mm3 08/30/21 03:22 Blast Cells # 0.0 K/mm3 08/30/21 03:22 WBC Morphology Not Reportable 08/30/21 03:22 Hypersegmented Neuts Not Reportable 08/30/21 03:22 Hyposegmented Neuts Not Reportable 08/30/21 03:22 Hypogranular Neuts Not Reportable 08/30/21 03:22 Smudge Cells Not Reportable 08/30/21 03:22 Toxic Granulation Not Reportable 08/30/21 03:22 Toxic Vacuolation Not Reportable 08/30/21 03:22 Dohle Bodies Not Reportable 08/30/21 03:22 Pelger-Huet Anomaly Not Reportable 08/30/21 03:22 Erik Rods Not Reportable 08/30/21 03:22 Platelet Estimate Consistent w auto 08/30/21 03:22 Clumped Platelets Not Reportable 08/30/21 03:22 Plt Clumps, EDTA Not Reportable 08/30/21 03:22 Large Platelets Not Reportable 08/30/21 03:22 Giant Platelets Not Reportable 08/30/21 03:22 Platelet Satelliting Not Reportable 08/30/21 03:22 Plt Morphology Comment Not Reportable 08/30/21 03:22 RBC Morphology Normal 08/30/21 03:22 Dimorphic RBCs Not Reportable 08/30/21 03:22 Polychromasia Not Reportable 08/30/21 03:22 Hypochromasia Not Reportable 08/30/21 03:22 Poikilocytosis Not Reportable 08/30/21 03:22 Anisocytosis Not Reportable 08/30/21 03:22 Microcytosis Not Reportable 08/30/21 03:22 Macrocytosis Not Reportable 08/30/21 03:22 Spherocytes Not Reportable 08/30/21 03:22 Pappenheimer Bodies Not Reportable 08/30/21 03:22 Sickle Cells Not Reportable 08/30/21 03:22 Target Cells Not Reportable 08/30/21 03:22 Tear Drop Cells Not Reportable 08/30/21 03:22 Ovalocytes Not Reportable 08/30/21 03:22 Helmet Cells Not Reportable 08/30/21 03:22 Rai-[place] Bodies Not Reportable 08/30/21 03:22 [place] Rings Not Reportable 08/30/21 03:22 Preston Cells Not Reportable 08/30/21 03:22 Bite Cells Not Reportable 08/30/21 03:22 Crenated Cell Not Reportable 08/30/21 03:22 Elliptocytes Not Reportable 08/30/21 03:22 Acanthocytes (Spur) Not Reportable 08/30/21 03:22 Rouleaux Not Reportable 08/30/21 03:22 Hemoglobin C Crystals Not Reportable 08/30/21 03:22 Schistocytes Not Reportable 08/30/21 03:22 Malaria parasites Not Reportable 08/30/21 03:22 Marco Bodies Not Reportable 08/30/21 03:22 Hem Pathologist Commnt No 08/30/21 03:22 PT 12.8 Sec. (12.2-14.9) 08/19/21 02:24 INR 0.87 (0.87-1.13) 08/19/21 02:24 APTT 20.0 Sec. (24.2-36.6) L 08/19/21 02:24 ABG pH 7.516 pH Units (7.350-7.450) H 08/27/21 03:56 POC ABG pCO2 30.1 mmHg (32.0-48.0) L 08/22/21 10:16 ABG pCO2 34.4 mm Hg 08/27/21 03:56 POC ABG pO2 109.5 mmHg (83-108) H 08/22/21 10:16 ABG pO2 117.0 mm Hg (80.0-90.0) H 08/27/21 03:56 POC ABG HCO3 23.5 08/22/21 10:16 ABG HCO3 27.2 mmol/L (20.0-26.0) H 08/27/21 03:56 ABG O2 Saturation 98.4 % (95.0-99.0) 08/27/21 03:56 ABG O2 Content 15.3 (0.0-44) 08/27/21 03:56 POC ABG Base Excess 1.2 08/22/21 10:16 ABG Base Excess 4.3 mmol/L (-2.0-3.0) H 08/27/21 03:56 ABG Hemoglobin 11.1 gm/dl (12.0-16.0) L 08/27/21 03:56 ABG Oxyhemoglobin 96.8 (94-98) 08/22/21 10:16 ABG Carboxyhemoglobin 1.0 % (0.0-5.0) 08/27/21 03:56 ABG Methemoglobin 0.5 % (0.0-1.5) 08/27/21 03:56 ABG Sodium Not Reportable 08/22/21 10:16 ABG Potassium Not Reportable 08/22/21 10:16 ABG Chloride Not Reportable 08/22/21 10:16 ABG Glucose Not Reportable 08/22/21 10:16 Oxyhemoglobin 96.9 % (95.0-99.0) 08/27/21 03:56 Carboxyhemoglobin 1.1 (0.5-1.5) 08/22/21 10:16 FiO2 40 % 08/27/21 03:56 FiO2 % 30.0 08/22/21 10:16 Sodium 133 mmol/L (137-145) L 09/03/21 09:09 Potassium 3.7 mmol/L (3.6-5.0) 09/03/21 09:09 Chloride 101.0 mmol/L (98-107) 09/03/21 09:09 Carbon Dioxide 22 mmol/L (22-30) 09/03/21 09:09 Anion Gap 14 mmol/L 09/03/21 09:09 BUN 19 mg/dL (7-17) H 09/03/21 09:09 Creatinine 0.7 mg/dL (0.6-1.2) 09/03/21 09:09 Estimated GFR > 60 ml/min 09/03/21 09:09 BUN/Creatinine Ratio 27 % 09/03/21 09:09 Glucose 78 mg/dL (65-100) 09/03/21 09:09 POC Glucose 92 mg/dL (70-105) 09/03/21 13:22 Calcium 9.5 mg/dL (8.4-10.2) 09/03/21 09:09 Phosphorus 3.50 mg/dL (2.5-4.5) 08/29/21 04:12 Magnesium 2.20 mg/dL (1.7-2.3) 08/29/21 04:12 Total Bilirubin 0.40 mg/dL (0.1-1.2) 08/20/21 04:25 AST 23 units/L (5-40) 08/20/21 04:25 ALT 13 units/L (7-56) 08/20/21 04:25 Alkaline Phosphatase 94 units/L (35-129) 08/20/21 04:25 C-Reactive Protein 29.40 mg/dL (0.00-1.30) H 09/02/21 04:08 Total Protein 7.3 g/dL (6.3-8.2) 08/20/21 04:25 Albumin 4.0 g/dL (3.9-5) 08/20/21 04:25 Albumin/Globulin Ratio 1.2 % 08/20/21 04:25 Triglycerides 200 mg/dL (2-149) H 08/27/21 04:25 Procalcitonin 1.34 ng/mL (<0.15) 09/02/21 04:08 Arterial Blood Glucose Not Reportable 08/22/21 10:16 Nasal Screen MRSA (PCR) Negative (Negative) 09/01/21 12:15 Blood Type A POSITIVE 08/21/21 15:10 Microbiology: Microbiology 08/29/21 09:45 Peripheral/Venous Blood Culture - Final NO GROWTH AFTER 5 DAYS 08/29/21 09:45 Peripheral/Venous Blood Culture - Final NO GROWTH AFTER 5 DAYS 09/01/21 07:34 Peripheral/Venous Blood Culture - Preliminary NO GROWTH AFTER 48 HOURS 09/01/21 07:34 Peripheral/Venous Blood Culture - Preliminary NO GROWTH AFTER 48 HOURS 09/01/21 12:20 Tracheal Aspirate Sputum Culture - Preliminary Lewis/IV: Voiding Method Indwelling Catheter Active Medications - Current Medications Current Medications: Generic Name Dose Route Start Last Admin Trade Name Freq PRN Reason Stop Dose Admin Acetaminophen 650 mg 08/19/21 06:00 09/02/21 14:20 Acetaminophen 325 Mg Tab FEEDTUBE 650 mg Q4H PRN Administration Fever >100.5/SAEED/MILD PAIN 1-3 Albuterol 2.5 mg 08/19/21 04:50 Albuterol 2.5 Mg/3 Ml Nebu IH Q3HRT PRN Shortness Of Breath Alprazolam 0.25 mg 08/19/21 06:00 08/29/21 22:34 Alprazolam 0.25 Mg Tab FEEDTUBE 0.25 mg BID PRN Administration Anxiety Atorvastatin Calcium 10 mg 08/23/21 22:00 09/02/21 22:43 Atorvastatin 10 Mg Tab FEEDTUBE Not Given QHS WARD Buspirone HCl 10 mg 08/19/21 10:00 09/03/21 09:19 Buspirone 10 Mg Tab FEEDTUBE Not Given BID WARD Dextrose 50 ml 08/20/21 10:00 09/03/21 12:34 Dextrose 50% In Water (25gm) 50 Ml Syringe IV 15 ml Q30MIN PRN Administration Hypoglycemia Protocol Docusate Sodium 100 mg 08/28/21 10:00 09/03/21 09:19 Docusate Sodium 100 Mg/10 Ml Oral Liqd PO Not Given BID WARD Famotidine 20 mg 09/01/21 13:00 09/03/21 09:18 Famotidine 20 Mg/2 Ml Inj IV 20 mg BID WARD Administration Folic Acid 1 mg 08/19/21 10:00 09/03/21 09:19 Folic Acid 1 Mg Tab FEEDTUBE Not Given QDAY WARD Guaifenesin 200 mg 09/02/21 10:23 Guaifenesin 100 Mg/5 Ml Oral Liqd PO Q4H PRN Cough Haloperidol Lactate 5 mg 08/29/21 09:58 Haloperidol Lactate 5 Mg/1 Ml Inj IV Q6H PRN Agitation Heparin Sodium (Porcine) 5,000 unit 08/19/21 10:00 09/03/21 09:18 Heparin 5,000 Unit/1 Ml Vial SUB-Q 5,000 unit Q12HR WARD Administration Hydralazine HCl 10 mg 08/19/21 05:03 08/24/21 18:09 Hydralazine 20 Mg/1 Ml Inj IV 10 mg Q6H PRN Administration SBP >/=160; DBP >/=100 NORepinephrine/NS 8 MG-250 ML 8 mg in 250 mls @ 3.75 mls/hr 08/25/21 15:00 08/25/21 14:30 Norepinephrine/Ns 8 Mg-250 Ml (Double Conc) IV 2 mcg/min TITRATE WARD 3.75 mls/hr Administration Protocol 2 MCG/MIN Levofloxacin/Dextrose 750 mg in 150 mls @ 100 mls/hr 09/01/21 14:00 09/03/21 14:25 Levaquin 750mg/150ml IV 09/05/21 15:29 100 mls/hr Q24H WARD Administration Protocol Fluconazole 200 mg in 100 mls @ 100 mls/hr 09/01/21 20:00 09/02/21 20:17 Diflucan IV 09/14/21 20:59 100 mls/hr Q24H WARD Administration Protocol Dextrose/Sodium Chloride 1,000 mls @ 125 mls/hr 09/03/21 12:00 09/03/21 12:03 D5/0.45ns IV 09/04/21 19:59 125 mls/hr DIRECT WARD Administration Insulin Human Regular 0 units 08/20/21 12:00 09/03/21 12:06 Insulin Regular, Human 100 Units/1 Ml SUB-Q Not Given Q6H [facility] Protocol Levothyroxine Sodium 75 mcg 09/01/21 13:00 09/03/21 06:40 Levothyroxine 100 Mcg Inj IV 75 mcg DAILY@0600 WARD Administration Mineral Oil 133 ml 09/03/21 10:00 09/03/21 12:05 Mineral Oil Enema 133 Ml UT 133 ml QDAY [facility] Administration Nystatin 100,000 unit 08/28/21 08:00 09/03/21 14:21 Nystatin 500,000 Unit/5 Ml Oral Liqd PO 09/03/21 20:01 Not Given TID [facility] Ondansetron HCl 4 mg 08/19/21 04:50 Ondansetron 4 Mg/2 Ml Inj IV Q8H PRN Nausea And Vomiting Polyethylene Glycol 17 gm 08/30/21 10:00 09/03/21 09:19 Polyethylene Glycol 3350 17 Gm Powder PO Not Given QDAY [facility] Senna 17.6 mg 08/29/21 22:00 09/03/21 09:19 Sennosides Oral Liqd 8.8 Mg/5 Ml Oral Liqd PO Not Given Q12HR [facility] Sertraline HCl 25 mg 08/19/21 10:00 09/03/21 09:19 Sertraline 25 Mg Tab FEEDTUBE Not Given QDAY [facility] Sodium Chloride 10 ml 08/19/21 10:00 09/03/21 09:18 Sodium Chloride 0.9% 10 Ml Flush Syringe IV 10 ml BID WARD Administration Sodium Chloride 10 ml 08/19/21 04:50 Sodium Chloride 0.9% 10 Ml Flush Syringe IV PRN PRN LINE FLUSH Sucralfate 1 gm 08/23/21 18:00 09/03/21 11:58 Sucralfate 1 Gm Tab FEEDTUBE Not Given Q6HR [facility] Thiamine HCl 100 mg 08/19/21 10:00 09/03/21 09:19 Thiamine 100 Mg Tab FEEDTUBE Not Given QDAY [facility] Tramadol HCl 50 mg 08/30/21 13:00 09/01/21 21:15 Tramadol 50 Mg Tab FEEDTUBE 50 mg Q6H PRN Administration Pain, Moderate (4-6) Nutrition/Malnutrition Assess - Dietary Evaluation Nutrition/Malnutrition Findings: Nutrition Notes Start: 08/19/21 10:13 Freq: Status: Active Protocol: Document 08/30/21 17:38 ABRAHAM (Rec: 08/30/21 18:00 ABRAHAM [id number]) Nutrition Notes Initial or Follow up Reassessment Current Diagnosis Hypertension,Respiratory Failure Other Pertinent Diagnosis s/p PEG Placement,Angioedema, Urinary Retention, Hypothyroidism, Depressio. Current Diet TF-Glucerna 1.2 Dieudonne @ 45 ml/hr (since D 08/23). Labs/Tests 08/30: BUN 21, Glu 129. Pertinent Medications 08/30: Folic acid, Levothyroxine, Thiamine, others nutritionally unremarkable. Height 4 ft 11 in Weight 74 kg [place] Body Weight (kg) 43.18 BMI 32.9 Weight change and time frame No body weight change reported in 1 week. Weight Status Obese Subjective/Other Information RD consult for routine F/U on TF tolerance. TF continues as prescribed, well tolerated. Pt continues on Mechanical Ventilation, O2 satureation @ 100%, according to Physical Assessment History notes. Pt continues to complain from constipation, according to Physical Assessment History notes. Percent of energy/protein needs met: Prescribed TF-Glucerna 1.2 Dieudonne @ 45 ml/hr provides for energy/protein needs (1,269 Kcal/65 g) during LOS, 94% Kcal; 70% AA. Burn Absent Trauma Absent GI Symptoms Constipation Difficulty In Swallowing,Chewing Food Allergy No Skin Integrity/Comment Assessment WNL. Current % PO Other Minimum of two criteria No #1 Nutrition Diagnosis Inadequate oral intake Diagnosis Progress(for reassessment Continues documentation) Is patient on ventilator? Yes Is Patient Ambulatory and/or Out of Bed No REE-([facility]-confined to bed) 1375.068 Kcal/Kg value to use for calculation 17 Approximate Energy Requirements Using 1258 kcal/Kg Calculation Used for Recommendations Kcal/kg Additional Notes Protein: 2 g/Kg IBW; 86 g/day. Fluids: 1 ml/Kcal, or as per MD. Nutrition Intervention Nutrition Support: Continue TF-Glucerna 1.2 Dieudonne @ 45 ml/hr. Flush: 70 ml water Q 4 hr, or as per MD. Kcal 1,269 Protein (gm) 65 Carbohydrates (gm) 124 Fat (gm) 65 Fluid (mL) 869 Fiber (gm) 17 % RDI: 94% Kcal; 70% AA. Goal #1 Provide at least 75% of energy /protein needs through Enteral Feeding during LOS. Goal #2 Maintain body weight within +/ -3% of admission body weight during LOS. Follow-Up By: 09/06/21 Additional Comments Continue monitoring, Ventilation status, TF tolerance and BM. <LEVI CONNELL - Last Filed: 09/07/21 16:47> Assessment and Plan Assessment and plan: I saw and evaluated the patient. Discussed with the nurse practitioner and agree with their findings and plan as documented in this note.I saw and evaluated the patient. Discussed with the nurse practitioner and agree with their findings and plan as documented in this note. Hospitalist Physical - Constitutional Vitals: Temp Pulse Resp BP Pulse Ox 98.1 F 88 16 127/79 97 09/07/21 08:13 09/07/21 12:00 09/07/21 08:13 09/07/21 08:13 09/07/21 08:57 Results - Labs CBC & Chem 7: 09/07/21 06:00 09/07/21 06:00 Labs: Laboratory Last Values WBC 9.6 K/mm3 (4.5-11.0) 09/07/21 06:00 RBC 2.92 M/mm3 (3.65-5.03) L 09/07/21 06:00 Hgb 9.5 gm/dl (10.1-14.3) L 09/07/21 06:00 Hct 28.2 % (30.3-42.9) L 09/07/21 06:00 MCV 97 fl (79-97) 09/07/21 06:00 MCH 33 pg (28-32) H 09/07/21 06:00 MCHC 34 % (30-34) 09/07/21 06:00 RDW 15.2 % (13.2-15.2) 09/07/21 06:00 Plt Count 394 K/mm3 (140-440) 09/07/21 06:00 Lymph % (Auto) 30.6 % (13.4-35.0) 09/07/21 06:00 [place] % (Auto) 4.5 % (0.0-7.3) 09/07/21 06:00 Eos % (Auto) 5.7 % (0.0-4.3) H 09/07/21 06:00 Baso % (Auto) 1.3 % (0.0-1.8) 09/07/21 06:00 Lymph # (Auto) 2.9 K/mm3 (1.2-5.4) 09/07/21 06:00 [place] # (Auto) 0.4 K/mm3 (0.0-0.8) 09/07/21 06:00 Eos # (Auto) 0.5 K/mm3 (0.0-0.4) H 09/07/21 06:00 Baso # (Auto) 0.1 K/mm3 (0.0-0.1) 09/07/21 06:00 Add Manual Diff Complete 08/30/21 03:22 Total Counted 100 08/30/21 03:22 Seg Neutrophils % 57.9 % (40.0-70.0) 09/07/21 06:00 Seg Neuts % (Manual) 87.0 % (40.0-70.0) H 08/30/21 03:22 Band Neutrophils % 0 % 08/30/21 03:22 Lymphocytes % (Manual) 10.0 % (13.4-35.0) L 08/30/21 03:22 Reactive Lymphs % (Man) 0 % 08/30/21 03:22 Monocytes % (Manual) 3.0 % (0.0-7.3) 08/30/21 03:22 Eosinophils % (Manual) 0 % (0.0-4.3) 08/30/21 03:22 Basophils % (Manual) 0 % (0.0-1.8) 08/30/21 03:22 Metamyelocytes % 0 % 08/30/21 03:22 Myelocytes % 0 % 08/30/21 03:22 Promyelocytes % 0 % 08/30/21 03:22 Blast Cells % 0 % 08/30/21 03:22 Nucleated RBC % Not Reportable 08/30/21 03:22 Seg Neutrophils # 5.5 K/mm3 (1.8-7.7) 09/07/21 06:00 Seg Neutrophils # Man 17.7 K/mm3 (1.8-7.7) H 08/30/21 03:22 Band Neutrophils # 0.0 K/mm3 08/30/21 03:22 Lymphocytes # (Manual) 2.0 K/mm3 (1.2-5.4) 08/30/21 03:22 Abs React Lymphs (Man) 0.0 K/mm3 08/30/21 03:22 Monocytes # (Manual) 0.6 K/mm3 (0.0-0.8) 08/30/21 03:22 Eosinophils # (Manual) 0.0 K/mm3 (0.0-0.4) 08/30/21 03:22 Basophils # (Manual) 0.0 K/mm3 (0.0-0.1) 08/30/21 03:22 Metamyelocytes # 0.0 K/mm3 08/30/21 03:22 Myelocytes # 0.0 K/mm3 08/30/21 03:22 Promyelocytes # 0.0 K/mm3 08/30/21 03:22 Blast Cells # 0.0 K/mm3 08/30/21 03:22 WBC Morphology Not Reportable 08/30/21 03:22 Hypersegmented Neuts Not Reportable 08/30/21 03:22 Hyposegmented Neuts Not Reportable 08/30/21 03:22 Hypogranular Neuts Not Reportable 08/30/21 03:22 Smudge Cells Not Reportable 08/30/21 03:22 Toxic Granulation Not Reportable 08/30/21 03:22 Toxic Vacuolation Not Reportable 08/30/21 03:22 Dohle Bodies Not Reportable 08/30/21 03:22 Pelger-Huet Anomaly Not Reportable 08/30/21 03:22 Erik Rods Not Reportable 08/30/21 03:22 Platelet Estimate Consistent w auto 08/30/21 03:22 Clumped Platelets Not Reportable 08/30/21 03:22 Plt Clumps, EDTA Not Reportable 08/30/21 03:22 Large Platelets Not Reportable 08/30/21 03:22 Giant Platelets Not Reportable 08/30/21 03:22 Platelet Satelliting Not Reportable 08/30/21 03:22 Plt Morphology Comment Not Reportable 08/30/21 03:22 RBC Morphology Normal 08/30/21 03:22 Dimorphic RBCs Not Reportable 08/30/21 03:22 Polychromasia Not Reportable 08/30/21 03:22 Hypochromasia Not Reportable 08/30/21 03:22 Poikilocytosis Not Reportable 08/30/21 03:22 Anisocytosis Not Reportable 08/30/21 03:22 Microcytosis Not Reportable 08/30/21 03:22 Macrocytosis Not Reportable 08/30/21 03:22 Spherocytes Not Reportable 08/30/21 03:22 Pappenheimer Bodies Not Reportable 08/30/21 03:22 Sickle Cells Not Reportable 08/30/21 03:22 Target Cells Not Reportable 08/30/21 03:22 Tear Drop Cells Not Reportable 08/30/21 03:22 Ovalocytes Not Reportable 08/30/21 03:22 Helmet Cells Not Reportable 08/30/21 03:22 Rai[place] Bodies Not Reportable 08/30/21 03:22 [place] Rings Not Reportable 08/30/21 03:22 [place] Cells Not Reportable 08/30/21 03:22 Bite Cells Not Reportable 08/30/21 03:22 Crenated Cell Not Reportable 08/30/21 03:22 Elliptocytes Not Reportable 08/30/21 03:22 Acanthocytes (Spur) Not Reportable 08/30/21 03:22 Rouleaux Not Reportable 08/30/21 03:22 Hemoglobin C Crystals Not Reportable 08/30/21 03:22 Schistocytes Not Reportable 08/30/21 03:22 Malaria parasites Not Reportable 08/30/21 03:22 Marco Bodies Not Reportable 08/30/21 03:22 Hem Pathologist Commnt No 08/30/21 03:22 PT 12.8 Sec. (12.2-14.9) 08/19/21 02:24 INR 0.87 (0.87-1.13) 08/19/21 02:24 APTT 20.0 Sec. (24.2-36.6) L 08/19/21 02:24 ABG pH 7.516 pH Units (7.350-7.450) H 08/27/21 03:56 POC ABG pCO2 30.1 mmHg (32.0-48.0) L 08/22/21 10:16 ABG pCO2 34.4 mm Hg 08/27/21 03:56 POC ABG pO2 109.5 mmHg (83-108) H 08/22/21 10:16 ABG pO2 117.0 mm Hg (80.0-90.0) H 08/27/21 03:56 POC ABG HCO3 23.5 08/22/21 10:16 ABG HCO3 27.2 mmol/L (20.0-26.0) H 08/27/21 03:56 ABG O2 Saturation 98.4 % (95.0-99.0) 08/27/21 03:56 ABG O2 Content 15.3 (0.0-44) 08/27/21 03:56 POC ABG Base Excess 1.2 08/22/21 10:16 ABG Base Excess 4.3 mmol/L (-2.0-3.0) H 08/27/21 03:56 ABG Hemoglobin 11.1 gm/dl (12.0-16.0) L 08/27/21 03:56 ABG Oxyhemoglobin 96.8 (94-98) 08/22/21 10:16 ABG Carboxyhemoglobin 1.0 % (0.0-5.0) 08/27/21 03:56 ABG Methemoglobin 0.5 % (0.0-1.5) 08/27/21 03:56 ABG Sodium Not Reportable 08/22/21 10:16 ABG Potassium Not Reportable 08/22/21 10:16 ABG Chloride Not Reportable 08/22/21 10:16 ABG Glucose Not Reportable 08/22/21 10:16 Oxyhemoglobin 96.9 % (95.0-99.0) 08/27/21 03:56 Carboxyhemoglobin 1.1 (0.5-1.5) 08/22/21 10:16 FiO2 40 % 08/27/21 03:56 FiO2 % 30.0 08/22/21 10:16 Sodium 136 mmol/L (137-145) L 09/07/21 06:00 Potassium 3.9 mmol/L (3.6-5.0) 09/07/21 06:00 Chloride 98.0 mmol/L (98-107) 09/07/21 06:00 Carbon Dioxide 28 mmol/L (22-30) D 09/07/21 06:00 Anion Gap 14 mmol/L 09/07/21 06:00 BUN 11 mg/dL (7-17) 09/07/21 06:00 Creatinine 0.6 mg/dL (0.6-1.2) 09/07/21 06:00 Estimated GFR > 60 ml/min 09/07/21 06:00 BUN/Creatinine Ratio 18 % 09/07/21 06:00 Glucose 111 mg/dL (65-100) H 09/07/21 06:00 POC Glucose 113 mg/dL (70-105) H 09/07/21 16:13 Calcium 10.3 mg/dL (8.4-10.2) H 09/07/21 06:00 Phosphorus 3.30 mg/dL (2.5-4.5) D 09/06/21 04:00 Magnesium 2.00 mg/dL (1.7-2.3) 09/06/21 04:00 Total Bilirubin 0.30 mg/dL (0.1-1.2) 09/04/21 04:15 AST 19 units/L (5-40) 09/04/21 04:15 ALT 16 units/L (7-56) 09/04/21 04:15 Alkaline Phosphatase 102 units/L (35-129) 09/04/21 04:15 C-Reactive Protein 29.40 mg/dL (0.00-1.30) H 09/02/21 04:08 Total Protein 6.6 g/dL (6.3-8.2) 09/04/21 04:15 Albumin 2.4 g/dL (3.9-5) L 09/04/21 04:15 Albumin/Globulin Ratio 0.6 % 09/04/21 04:15 Triglycerides 200 mg/dL (2-149) H 08/27/21 04:25 Procalcitonin 1.34 ng/mL (<0.15) 09/02/21 04:08 Arterial Blood Glucose Not Reportable 08/22/21 10:16 Nasal Screen MRSA (PCR) Negative (Negative) 09/01/21 12:15 Blood Type A POSITIVE 08/21/21 15:10 Lewis/IV: Voiding Method Indwelling Catheter Active Medications - Current Medications Current Medications: Generic Name Dose Route Start Last Admin Trade Name Freq PRN Reason Stop Dose Admin Acetaminophen 650 mg 08/19/21 06:00 09/02/21 14:20 Acetaminophen 325 Mg Tab FEEDTUBE 650 mg Q4H PRN Administration Fever >100.5/SAEED/MILD PAIN 1-3 Albuterol 2.5 mg 08/19/21 04:50 Albuterol 2.5 Mg/3 Ml Nebu IH Q3HRT PRN Shortness Of Breath Atorvastatin Calcium 10 mg 09/05/21 22:00 09/06/21 22:14 Atorvastatin 10 Mg Tab FEEDTUBE 10 mg QHS WARD Administration Buspirone HCl 10 mg 09/05/21 10:00 09/07/21 10:03 Buspirone 10 Mg Tab FEEDTUBE 10 mg BID WARD Administration Dextrose 50 ml 08/20/21 10:00 09/03/21 12:34 Dextrose 50% In Water (25gm) 50 Ml Syringe IV 15 ml Q30MIN PRN Administration Hypoglycemia Protocol Diphenhydramine HCl 25 mg 09/07/21 15:00 Diphenhydramine 25 Mg Cap PO Q8H PRN Itching Folic Acid 1 mg 09/05/21 10:00 09/07/21 10:03 Folic Acid 1 Mg Tab FEEDTUBE 1 mg QDAY WARD Administration Haloperidol Lactate 5 mg 08/29/21 09:58 09/03/21 17:39 Haloperidol Lactate 5 Mg/1 Ml Inj IV 5 mg Q6H PRN Administration Agitation Heparin Sodium (Porcine) 5,000 unit 08/19/21 10:00 09/07/21 10:03 Heparin 5,000 Unit/1 Ml Vial SUB-Q 5,000 unit Q12HR WARD Administration Hydralazine HCl 10 mg 08/19/21 05:03 08/24/21 18:09 Hydralazine 20 Mg/1 Ml Inj IV 10 mg Q6H PRN Administration SBP >/=160; DBP >/=100 Fluconazole 200 mg in 100 mls @ 100 mls/hr 09/01/21 20:00 09/06/21 20:50 Diflucan IV 09/14/21 20:59 100 mls/hr Q24H WARD Administration Protocol Insulin Human Regular 0 units 08/20/21 12:00 09/07/21 12:23 Insulin Regular, Human 100 Units/1 Ml SUB-Q Not Given Q6H [facility] Protocol Levothyroxine Sodium 150 mcg 09/07/21 12:00 09/07/21 13:26 Levothyroxine 150 Mcg Tab FEEDTUBE 150 mcg DAILY@0600 WARD Administration Lorazepam 0.25 mg 09/05/21 14:41 09/07/21 13:27 Lorazepam 0.5 Mg Tab FEEDTUBE 0.25 mg BID PRN Administration Agitation Mineral Oil 133 ml 09/05/21 08:49 Mineral Oil Enema 133 Ml UT QDAY PRN Constipation Ondansetron HCl 4 mg 08/19/21 04:50 Ondansetron 4 Mg/2 Ml Inj IV Q8H PRN Nausea And Vomiting Senna 8.8 mg 09/05/21 22:00 09/06/21 22:15 Sennosides Oral Liqd 8.8 Mg/5 Ml Oral Liqd FEEDTUBE 8.8 mg QHS WARD Administration Sodium Chloride 10 ml 08/19/21 10:00 09/07/21 10:04 Sodium Chloride 0.9% 10 Ml Flush Syringe IV 10 ml BID WARD Administration Sodium Chloride 10 ml 08/19/21 04:50 Sodium Chloride 0.9% 10 Ml Flush Syringe IV PRN PRN LINE FLUSH Sucralfate 1 gm 09/05/21 12:00 09/07/21 13:26 Sucralfate 1 Gm/10 Ml Oral Liqd FEEDTUBE 1 gm Q6HR WARD Administration Thiamine HCl 100 mg 09/05/21 10:00 09/07/21 10:04 Thiamine 100 Mg Tab FEEDTUBE 100 mg QDAY WARD Administration Tramadol HCl 50 mg 09/05/21 14:42 09/07/21 13:27 Tramadol 50 Mg Tab FEEDTUBE 50 mg Q4H PRN Administration Pain, Moderate (4-6) Nutrition/Malnutrition Assess - Dietary Evaluation Nutrition/Malnutrition Findings: Nutrition Notes Start: 08/19/21 10:13 Freq: Status: Active Protocol: Document 09/06/21 14:58 ABRAHAM (Rec: 09/06/21 15:18 ABRAHAM [id number]) Nutrition Notes Initial or Follow up Brief Note Current Diagnosis Hypertension,Respiratory Failure Other Pertinent Diagnosis s/p PEG Placement,Angioedema, Urinary Retention, Hypothyroidism, Depression Current Diet TF-Glucerna 1.2 Dieudonne @ 45 ml/hr (since B 09/05). Height 4 ft 11 in Weight 74 kg [place] Body Weight (kg) 43.18 BMI 32.9 Weight change and time frame No body weight change reported in 12 days. Weight Status Obese Subjective/Other Information RD consult for routine F/U on resumed TF and tolerance. TF resumed on B 09/05 and continues as prescribed, well tolerated, according to Progress notes. Pt on Trach-Tube, O2 saturation @ 98%, according to Physical Assessmet History notes. Pt has produced multiple BM, according to Progress notes. Pt to be discharged to SNF, awaiting placemernt, according to Progress notes. Percent of energy/protein needs met: Prescribed TF-Glucerna 1.2 Dieudonne @ 45 ml/hr provides for energy/protein needs (1,269 Kcal/65 g) during LOS, 94% Kcal; 70% AA. #1 Nutrition Diagnosis Inadequate oral intake Diagnosis Progress(for reassessment Continues documentation) Is patient on ventilator? Yes Is Patient Ambulatory and/or Out of Bed No REE-([facility]-confined to bed) 1375.068 Kcal/Kg value to use for calculation 17 Approximate Energy Requirements Using 1258 kcal/Kg Calculation Used for Recommendations Kcal/kg Additional Notes Protein: 2 g/Kg IBW; 86 g/day. Fluids: 1 ml/Kcal, or as per MD. Nutrition Intervention Nutrition Support: Continue TF-Glucerna 1.2 Dieudonne @ 45 ml/hr. Flush: 70 ml water Q 4 hr, or as per MD. Kcal 1,269 Protein (gm) 65 Carbohydrates (gm) 124 Fat (gm) 65 Fluid (mL) 869 Fiber (gm) 17 % RDI: 94% Kcal; 70% AA. Goal #1 Provide at least 75% of energy /protein needs through Enteral Feeding during LOS. Goal #2 Maintain body weight within +/ -3% of admission body weight during LOS. Follow-Up By: 09/13/21 Additional Comments Continue monitoring, Ventilation status, TF tolerance and BM.
--- NOTE | 2021-09-03 17:17 | XRay Report ---
CHEST 1 VIEW INDICATION / CLINICAL INFORMATION: PICC placement. COMPARISON: 08/29/2021 FINDINGS: SUPPORT DEVICES: Interval placement of right-sided PICC line with tip in the mid right atrium. Otherw ise, unchanged HEART / MEDIASTINUM: No significant abnormality. LUNGS / PLEURA: No significant pulmonary or pleural abnormality. No pneumothorax. ADDITIONAL FINDINGS: No significant additional findings. IMPRESSION: 1. Right-sided PICC line noted with tip in the mid right atrium. Signer Name: Nicholas Mosqueda MD Signed: 09/03/2021 5:13 PM Workstation Name: [id number]
--- NOTE | 2021-09-03 18:00 | Progress Note ---
Assessment and Plan Pt with angioedema.Patient status post laparoscopic exploration on 09/01/2021 for a large erosion in the anterior stomach from a PEG tube. Gastrostomy feeding tube revision done laparoscopically. Large erosion is closed with a stapler. Nursing noted increased discharge around new g tube.. Feedings were held and tube placed on suction. Discharge continues this pm. will cont to hold tube feeding and meds. order CT of abdo wo contrast. Subjective Date of service: 09/03/21 Narrative: Nursing noted increased discharge around new g tube.. Feedings were hled and tube placed on sucton. Discharge continues this pm. will cont to hold tube feedign and meds. order CT of abdo wo contrast. Objective Vital Signs - 12hr 09/03/21 09/03/21 09/03/21 06:00 07:00 08:00 Temperature 98.2 F Pulse Rate 69 70 70 Pulse Rate [ 70 From Monitor] Respiratory 14 16 14 Rate Blood Pressure 87/51 88/54 90/47 O2 Sat by Pulse 100 99 100 Oximetry O2 Sat by Pulse Oximetry [ Assessment] 09/03/21 09/03/21 09/03/21 08:10 09:00 10:00 Temperature Pulse Rate 69 69 71 Pulse Rate [ From Monitor] Respiratory 24 23 27 H Rate Blood Pressure 90/47 98/54 116/65 O2 Sat by Pulse 100 100 100 Oximetry O2 Sat by Pulse Oximetry [ Assessment] 09/03/21 09/03/21 09/03/21 10:20 10:25 11:00 Temperature Pulse Rate 89 90 Pulse Rate [ From Monitor] Respiratory 20 Rate Blood Pressure 116/65 131/62 O2 Sat by Pulse 100 95 Oximetry O2 Sat by Pulse 100 Oximetry [ Assessment] 09/03/21 09/03/21 09/03/21 12:00 12:01 13:01 Temperature 99.5 F Pulse Rate 89 87 87 Pulse Rate [ 89 From Monitor] Respiratory 26 H 26 H 28 H Rate Blood Pressure 105/59 104/65 102/76 O2 Sat by Pulse 99 99 98 Oximetry O2 Sat by Pulse Oximetry [ Assessment] 09/03/21 09/03/21 09/03/21 14:00 15:00 17:27 Temperature Pulse Rate 86 79 77 Pulse Rate [ From Monitor] Respiratory 30 H 27 H Rate Blood Pressure 106/70 109/63 134/87 O2 Sat by Pulse 100 98 96 Oximetry O2 Sat by Pulse Oximetry [ Assessment] - Labs 09/03/21 09:09 09/03/21 09:09 Diabetes panel 09/03/21 Range/Units 09:09 Sodium 133 L (137-145) mmol/L Potassium 3.7 (3.6-5.0) mmol/L Chloride 101.0 (98-107) mmol/L Carbon Dioxide 22 (22-30) mmol/L BUN 19 H (7-17) mg/dL Creatinine 0.7 (0.6-1.2) mg/dL Glucose 78 (65-100) mg/dL Calcium 9.5 (8.4-10.2) mg/dL Calcium panel 09/03/21 Range/Units 09:09 Calcium 9.5 (8.4-10.2) mg/dL Pituitary panel 09/03/21 Range/Units 09:09 Sodium 133 L (137-145) mmol/L Potassium 3.7 (3.6-5.0) mmol/L Chloride 101.0 (98-107) mmol/L Carbon Dioxide 22 (22-30) mmol/L BUN 19 H (7-17) mg/dL Creatinine 0.7 (0.6-1.2) mg/dL Glucose 78 (65-100) mg/dL Calcium 9.5 (8.4-10.2) mg/dL Adrenal panel 09/03/21 Range/Units 09:09 Sodium 133 L (137-145) mmol/L Potassium 3.7 (3.6-5.0) mmol/L Chloride 101.0 (98-107) mmol/L Carbon Dioxide 22 (22-30) mmol/L BUN 19 H (7-17) mg/dL Creatinine 0.7 (0.6-1.2) mg/dL Glucose 78 (65-100) mg/dL Calcium 9.5 (8.4-10.2) mg/dL
--- NOTE | 2021-09-03 20:06 | Cat Scan Report ---
CT ABDOMEN AND PELVIS WITHOUT INTRAVENOUS CONTRAST INDICATION / CLINICAL INFORMATION: Recent xlap for mal pos of gtube. TECHNIQUE: All CT scans at this location are performed using CT dose reduction for ALARA by means of automated exposure control. COMPARISON: 09/01/21. FINDINGS: ABDOMEN: There is a gastrostomy tube with the tip barely in the anterior stomach. I do not identify a balloon/bumper at the distal portion of the tube. There is a thin linear radiopaque density overlyin g the stomach in this region. This could be related to interval surgery. The gallbladder is surgicall y absent. There is contrast throughout the colon. I see no evidence of bowel obstruction or free air. The liver , spleen, bile ducts, pancreas, adrenal glands and kidneys are normal. There are small bilateral pleu ral effusions. There is bibasilar compressive and dependent atelectasis. PELVIS: There is a Esquivel catheter in a nondistended urinary bladder. The uterus and ovaries are not i dentified. There is no evidence of appendicitis. There are scattered left colonic diverticula without acute inflammation. No abnormal mass or fluid collection is seen. I do not identify a hernia. There is advanced spondylosis. IMPRESSION: The tip of the gastrostomy tube is barely in the anterior stomach. I do not identify a di stal gastrostomy tube balloon or bumper. No evidence of bowel obstruction or free air. Signer Name: Babatunde Moran MD Signed: 09/03/2021 8:01 PM Workstation Name: [id number]
[2021-09-03] MEDS: LORazepam 2 MG/ML VIAL IV PRN (20:41)
[2021-09-03] MEDS: FLUCONAZOLE 200 MG 200 MG/100 ML BAG IV SCH (20:41)
[2021-09-04] MEDS: SUCRALFATE 1 GM TAB FEEDTUBE SCH ×2 (01:14→06:46)
[2021-09-04] MEDS: INSULIN REGULAR, HUMAN 100 UNITS/1 ML SUB-Q SCH ×4 (01:14→18:48)
[2021-09-04] MEDS: D5W/0.45% NACL 1,000 ML IV SCH (01:53)
[2021-09-04 05:27] LABS: Alanine Aminotransferase 16 units/L (7-56); Albumin 2.4 g/dL (3.9-5); BUN/Creatinine Ratio 18; Blood Urea Nitrogen 11 mg/dL (7-17); Calcium 9.1 mg/dL (8.4-10.2); Hemolysis Index 15
[2021-09-04] MEDS: LEVOTHYROXINE 100 MCG INJ IV SCH ×2 (06:47→12:10)
[2021-09-04] MEDS: FAMOTIDINE 20 MG/2 ML INJ IV SCH ×2 (11:00→21:08)
[2021-09-04] MEDS: HEPARIN 5,000 UNIT/1 ML VIAL SUB-Q SCH ×2 (11:00→21:07)
[2021-09-04] MEDS: POTASSIUM CHLORIDE 20 MEQ 20 MEQ/100 ML BAG IV SCH ×3 (11:26→13:36)
[2021-09-04] MEDS: DOCUSATE SODIUM 100 MG/10 ML ORAL LIQD PO SCH (11:31)
[2021-09-04] MEDS: busPIRone 10 MG TAB FEEDTUBE SCH (11:31)
[2021-09-04] MEDS: POLYETHYLENE GLYCOL 3350 17 GM POWDER PO SCH (11:32)
[2021-09-04] MEDS: FOLIC ACID 1 MG TAB FEEDTUBE SCH (11:32)
[2021-09-04] MEDS: SENNOSIDES ORAL LIQD 8.8 MG/5 ML ORAL LIQD PO SCH (11:32)
[2021-09-04] MEDS: MULTIVITAMIN / MINERAL ORAL LIQUID 15 ML FEEDTUBE SCH (11:32)
[2021-09-04] MEDS: SERTRALINE 25 MG TAB FEEDTUBE SCH (11:33)
[2021-09-04] MEDS: THIAMINE 100 MG TAB FEEDTUBE SCH (11:33)
--- NOTE | 2021-09-04 12:04 | Progress Note ---
Assessment and Plan 76 y/o female with acute respiratory failure secondary to angioedema 09/04/21: Will ask surgery how they feel about possibly downsizing trach to a 6 cuffed. patient not intubated for lung reasons, all upper airway issues. If so then could have speech assess with PMV and possible swallow eval. If tolerated 6 and 4 is need could go to that faster and then have speech see again. Goal of this is to have her on TPN for as little time as possible. Follow up surgery recs after they see patient today. Guarded prognosis. 09/03/21: Enema today. Await surgery eval and recs. Continue T-piece and only rest on PSV if absolutely needed. Abx per ID 09/02/21: Resume feeding today. Tolerating PSV trial, if continues will attempt T-piece tomorrow. Restart Heparin. Guarded prognosis. Back on Diflucan 09/01/21: Hold on any weaning today. Hold heparin for 24 hours. Surgery spoke with IR, they will attempt to replace peg tube. Changed as many meds to IV as possible. ID has now been consulted so will defer all abx therapy to them. Guarded prognosis, family not at bedside this am. 08/31/21: Dropped PSV to 10/6, if tolerates then in a few hours place on T- piece. Rest on PSV tonight. Then 24 hours of T-piece tomorrow. Most likely transfer out of unit on . Will discuss urine situation with nursing staff. Voided and has had no issues so will not place lewis. Spiked a temp. Repeat cultures with next temperature spike and will start on Diflucan empirically for oral candidiasis. 08/30/21: Start bladder training q4 hours. All cultures negative thus far and no further temps. Given Mag Citrate today, if no BM in the next 24, will start some scheduled lactulose. Continue PSV as tolerated. 08/29/21: Agree with hernandez culture, hold on abx, remove lewis. Repeat CXR. Per nursing has not had bowel movement in at least 4 days. Check KUB. PSV trials to start soon 08/28/21: would like to get patient off of continuous sedation so will scheduled tramadol therapy with hopes of weaning Fent Drip. Will order fent 50Q2 PRN pain to help with this as well. Will likely need to be placed on bowel regimen to prevent constipation. Once off continuous drips, can start PSV trials. 08/27/21: Start using peg. Continue PRN fent pushes and will add PRN tramadol as well. Wean sedation off. Can start PSV trials as early as tomorrow. 1. Agree with IV steroids 2. Suggest adding scheduled benadryl and pepcid 3. If swelling does not improve in the next 24-48 hours, suggest a trial of FFP 4. Wean FiO2 for sats > 88% CCT 31 minutes Subjective Date of service: 09/04/21 Interval history: Asleep. CT report back on scan that surgery ordered last night. Not using tube now and TPN has been ordered. Objective Vital Signs - 12hr 09/04/21 09/04/21 09/04/21 00:12 01:00 02:00 Temperature Pulse Rate 86 76 72 Pulse Rate [ From Monitor] Respiratory 18 27 H Rate Blood Pressure 111/65 113/64 103/65 O2 Sat by Pulse 94 97 97 Oximetry O2 Sat by Pulse Oximetry [ Assessment] 09/04/21 09/04/21 09/04/21 03:00 03:50 04:00 Temperature Pulse Rate 80 74 72 Pulse Rate [ 71 From Monitor] Respiratory 29 H 26 H Rate Blood Pressure 114/72 114/72 112/70 O2 Sat by Pulse 96 97 95 Oximetry O2 Sat by Pulse Oximetry [ Assessment] 09/04/21 09/04/21 09/04/21 05:00 06:00 07:00 Temperature Pulse Rate 77 73 77 Pulse Rate [ From Monitor] Respiratory 19 37 H 25 H Rate Blood Pressure 110/59 120/69 131/70 O2 Sat by Pulse 97 95 98 Oximetry O2 Sat by Pulse 96 Oximetry [ Assessment] 09/04/21 09/04/21 09/04/21 07:37 07:39 08:00 Temperature 98.7 F Pulse Rate 73 Pulse Rate [ 74 From Monitor] Respiratory 30 H Rate Blood Pressure 128/72 O2 Sat by Pulse 98 98 Oximetry O2 Sat by Pulse 99 Oximetry [ Assessment] 09/04/21 09/04/21 09:00 10:00 Temperature Pulse Rate 72 72 Pulse Rate [ From Monitor] Respiratory 30 H 29 H Rate Blood Pressure 122/73 120/71 O2 Sat by Pulse 98 97 Oximetry O2 Sat by Pulse Oximetry [ Assessment] Constitutional: no acute distress, other (Sedated) ENT: other (orally intubated, macroglossia) Neck: supple, no lymphadenopathy Effort: other (Supported on ventilator) Ascultation: Bilateral: clear Percussion: Bilateral: not dull Cardiovascular: regular rate and rhythm Gastrointestinal: normoactive bowel sounds Extremities: no cyanosis, no edema, pink and warm Neurologic: other (Sedated) Psychiatric: other (Sedated) CBC and BMP: 09/03/21 09:09 09/04/21 04:15 ABG, PT/INR, D-dimer: ABG ABG pH 7.516 pH Units (7.350-7.450) H 08/27/21 03:56 POC ABG pCO2 30.1 mmHg (32.0-48.0) L 08/22/21 10:16 ABG pCO2 34.4 mm Hg 08/27/21 03:56 POC ABG pO2 109.5 mmHg (83-108) H 08/22/21 10:16 ABG pO2 117.0 mm Hg (80.0-90.0) H 08/27/21 03:56 POC ABG HCO3 23.5 08/22/21 10:16 ABG O2 Saturation 98.4 % (95.0-99.0) 08/27/21 03:56 PT/INR, D-dimer PT 12.8 Sec. (12.2-14.9) 08/19/21 02:24 INR 0.87 (0.87-1.13) 08/19/21 02:24 Abnormal lab findings: Abnormal Labs 08/19/21 08/19/21 08/19/21 02:24 02:24 02:24 WBC 13.9 H RBC Hgb Hct MCV 98 H MCH 33 H RDW 15.7 H Seg Neuts % (Manual) Lymphocytes % (Manual) 52.0 H Seg Neutrophils # Man Lymphocytes # (Manual) 7.2 H APTT 20.0 L ABG pH POC ABG pCO2 POC ABG pO2 ABG pO2 ABG HCO3 ABG O2 Saturation ABG Base Excess ABG Hemoglobin Oxyhemoglobin Sodium Potassium 3.3 L Chloride Carbon Dioxide 20 L BUN Glucose 143 H POC Glucose Calcium Phosphorus Magnesium C-Reactive Protein Total Protein 8.3 H Albumin Triglycerides 08/19/21 08/19/2108/19/22 06:15 10:20 11:10 WBC RBC Hgb Hct MCV MCH RDW Seg Neuts % (Manual) Lymphocytes % (Manual) Seg Neutrophils # Man Lymphocytes # (Manual) APTT ABG pH 7.465 H 7.503 H POC ABG pCO2 POC ABG pO2 ABG pO2 177.7 H 90.5 H ABG HCO3 ABG O2 Saturation 99.2 H ABG Base Excess ABG Hemoglobin Oxyhemoglobin Sodium Potassium Chloride Carbon Dioxide BUN Glucose POC Glucose 171 H Calcium Phosphorus Magnesium C-Reactive Protein Total Protein Albumin Triglycerides 08/19/21 08/20/21 08/20/21 16:33 00:03 04:25 WBC RBC Hgb Hct MCV 98 H MCH 33 H RDW 15.9 H Seg Neuts % (Manual) 83.0 H Lymphocytes % (Manual) Seg Neutrophils # Man Lymphocytes # (Manual) APTT ABG pH POC ABG pCO2 POC ABG pO2 ABG pO2 ABG HCO3 ABG O2 Saturation ABG Base Excess ABG Hemoglobin Oxyhemoglobin Sodium Potassium Chloride Carbon Dioxide BUN Glucose POC Glucose 179 H 133 H Calcium Phosphorus Magnesium C-Reactive Protein Total Protein Albumin Triglycerides 08/20/21 08/20/21 08/20/21 04:25 04:30 05:39 WBC RBC Hgb Hct MCV MCH RDW Seg Neuts % (Manual) Lymphocytes % (Manual) Seg Neutrophils # Man Lymphocytes # (Manual) APTT ABG pH POC ABG pCO2 POC ABG pO2 ABG pO2 95.5 H ABG HCO3 ABG O2 Saturation ABG Base Excess -2.2 L ABG Hemoglobin Oxyhemoglobin Sodium Potassium Chloride Carbon Dioxide 21 L BUN Glucose 143 H POC Glucose 168 H Calcium 8.2 L Phosphorus Magnesium C-Reactive Protein Total Protein Albumin Triglycerides 08/20/21 08/20/21 08/21/21 12:04 16:38 00:12 WBC RBC Hgb Hct MCV MCH RDW Seg Neuts % (Manual) Lymphocytes % (Manual) Seg Neutrophils # Man Lymphocytes # (Manual) APTT ABG pH POC ABG pCO2 POC ABG pO2 ABG pO2 ABG HCO3 ABG O2 Saturation ABG Base Excess ABG Hemoglobin Oxyhemoglobin Sodium Potassium Chloride Carbon Dioxide BUN Glucose POC Glucose 151 H 135 H 123 H Calcium Phosphorus Magnesium C-Reactive Protein Total Protein Albumin Triglycerides 08/21/21 08/21/21 08/21/21 04:58 04:58 04:59 WBC RBC 3.64 L Hgb Hct MCV 100 H MCH RDW 16.4 H Seg Neuts % (Manual) Lymphocytes % (Manual) Seg Neutrophils # Man Lymphocytes # (Manual) APTT ABG pH POC ABG pCO2 POC ABG pO2 ABG pO2 ABG HCO3 ABG O2 Saturation ABG Base Excess -2.6 L ABG Hemoglobin 11.6 L Oxyhemoglobin Sodium Potassium 3.5 L Chloride 109.5 H Carbon Dioxide 19 L BUN Glucose 159 H POC Glucose Calcium 8.3 L Phosphorus Magnesium C-Reactive Protein Total Protein Albumin Triglycerides 08/21/21 08/21/21 08/21/21 05:22 11:21 16:29 WBC RBC Hgb Hct MCV MCH RDW Seg Neuts % (Manual) Lymphocytes % (Manual) Seg Neutrophils # Man Lymphocytes # (Manual) APTT ABG pH POC ABG pCO2 POC ABG pO2 ABG pO2 ABG HCO3 ABG O2 Saturation ABG Base Excess ABG Hemoglobin Oxyhemoglobin Sodium Potassium Chloride Carbon Dioxide BUN Glucose POC Glucose 143 H 133 H 122 H Calcium Phosphorus Magnesium C-Reactive Protein Total Protein Albumin Triglycerides 08/22/21 08/22/21 08/22/21 00:03 03:54 03:54 WBC RBC 3.53 L Hgb Hct MCV 100 H MCH 33 H RDW 16.7 H Seg Neuts % (Manual) Lymphocytes % (Manual) Seg Neutrophils # Man Lymphocytes # (Manual) APTT ABG pH POC ABG pCO2 POC ABG pO2 ABG pO2 ABG HCO3 ABG O2 Saturation ABG Base Excess ABG Hemoglobin Oxyhemoglobin Sodium Potassium Chloride 107.5 H Carbon Dioxide BUN Glucose 123 H POC Glucose 132 H Calcium Phosphorus Magnesium C-Reactive Protein Total Protein Albumin Triglycerides 08/22/21 08/22/21 08/22/21 04:40 06:08 10:16 WBC RBC Hgb Hct MCV MCH RDW Seg Neuts % (Manual) Lymphocytes % (Manual) Seg Neutrophils # Man Lymphocytes # (Manual) APTT ABG pH 7.454 H 7.511 H POC ABG pCO2 30.1 L POC ABG pO2 109.5 H ABG pO2 109.8 H ABG HCO3 ABG O2 Saturation ABG Base Excess ABG Hemoglobin Oxyhemoglobin Sodium Potassium Chloride Carbon Dioxide BUN Glucose POC Glucose 137 H Calcium Phosphorus Magnesium C-Reactive Protein Total Protein Albumin Triglycerides 0508/22/21 08/22/21 10:27 10:27 11:13 WBC RBC Hgb Hct MCV 99 H MCH RDW 16.6 H Seg Neuts % (Manual) Lymphocytes % (Manual) Seg Neutrophils # Man Lymphocytes # (Manual) APTT ABG pH POC ABG pCO2 POC ABG pO2 ABG pO2 ABG HCO3 ABG O2 Saturation ABG Base Excess ABG Hemoglobin Oxyhemoglobin Sodium Potassium Chloride Carbon Dioxide BUN Glucose 129 H POC Glucose 125 H Calcium Phosphorus Magnesium C-Reactive Protein Total Protein Albumin Triglycerides 08/22/21 08/23/21 08/23/21 23:39 04:11 04:11 WBC RBC Hgb Hct MCV 98 H MCH 33 H RDW 16.1 H Seg Neuts % (Manual) Lymphocytes % (Manual) Seg Neutrophils # Man Lymphocytes # (Manual) APTT ABG pH POC ABG pCO2 POC ABG pO2 ABG pO2 ABG HCO3 ABG O2 Saturation ABG Base Excess ABG Hemoglobin Oxyhemoglobin Sodium Potassium Chloride Carbon Dioxide BUN Glucose 148 H POC Glucose 117 H Calcium Phosphorus Magnesium C-Reactive Protein Total Protein Albumin Triglycerides 08/23/21 08/23/21 08/23/21 05:32 11:02 18:04 WBC RBC Hgb Hct MCV MCH RDW Seg Neuts % (Manual) Lymphocytes % (Manual) Seg Neutrophils # Man Lymphocytes # (Manual) APTT ABG pH POC ABG pCO2 POC ABG pO2 ABG pO2 ABG HCO3 ABG O2 Saturation ABG Base Excess ABG Hemoglobin Oxyhemoglobin Sodium Potassium Chloride Carbon Dioxide BUN Glucose POC Glucose 173 H 146 H 129 H Calcium Phosphorus Magnesium C-Reactive Protein Total Protein Albumin Triglycerides 08/24/21 08/24/21 08/24/21 00:27 05:20 06:00 WBC RBC Hgb Hct MCV MCH RDW Seg Neuts % (Manual) Lymphocytes % (Manual) Seg Neutrophils # Man Lymphocytes # (Manual) APTT ABG pH 7.481 H POC ABG pCO2 POC ABG pO2 ABG pO2 95.8 H ABG HCO3 29.8 H ABG O2 Saturation ABG Base Excess 5.8 H ABG Hemoglobin Oxyhemoglobin Sodium Potassium Chloride Carbon Dioxide BUN Glucose POC Glucose 146 H 159 H Calcium Phosphorus Magnesium C-Reactive Protein Total Protein Albumin Triglycerides 08/24/21 08/25/21 08/25/21 11:37 05:13 11:38 WBC RBC Hgb Hct MCV MCH RDW Seg Neuts % (Manual) Lymphocytes % (Manual) Seg Neutrophils # Man Lymphocytes # (Manual) APTT ABG pH POC ABG pCO2 POC ABG pO2 ABG pO2 ABG HCO3 ABG O2 Saturation ABG Base Excess ABG Hemoglobin Oxyhemoglobin Sodium Potassium Chloride Carbon Dioxide BUN Glucose POC Glucose 154 H 121 H 135 H Calcium Phosphorus Magnesium C-Reactive Protein Total Protein Albumin Triglycerides 08/25/21 08/25/21 08/26/21 16:00 17:12 00:04 WBC RBC Hgb Hct MCV MCH RDW Seg Neuts % (Manual) Lymphocytes % (Manual) Seg Neutrophils # Man Lymphocytes # (Manual) APTT ABG pH POC ABG pCO2 POC ABG pO2 ABG pO2 78.3 L ABG HCO3 32.7 H ABG O2 Saturation ABG Base Excess 6.3 H ABG Hemoglobin 11.0 L Oxyhemoglobin 93.9 L Sodium Potassium Chloride Carbon Dioxide BUN Glucose POC Glucose 179 H 140 H Calcium Phosphorus Magnesium C-Reactive Protein Total Protein Albumin Triglycerides 08/26/21 08/26/21 08/26/21 04:22 04:59 04:59 WBC 12.9 H RBC 3.54 L Hgb Hct MCV MCH RDW 15.6 H Seg Neuts % (Manual) Lymphocytes % (Manual) Seg Neutrophils # Man Lymphocytes # (Manual) APTT ABG pH 7.533 H POC ABG pCO2 POC ABG pO2 ABG pO2 76.9 L ABG HCO3 29.2 H ABG O2 Saturation ABG Base Excess 6.4 H ABG Hemoglobin 11.6 L Oxyhemoglobin Sodium Potassium 3.5 L Chloride Carbon Dioxide BUN 28 H Glucose 139 H POC Glucose Calcium Phosphorus Magnesium C-Reactive Protein Total Protein Albumin Triglycerides 08/26/21 08/26/21 08/26/21 05:34 11:21 16:52 WBC RBC Hgb Hct MCV MCH RDW Seg Neuts % (Manual) Lymphocytes % (Manual) Seg Neutrophils # Man Lymphocytes # (Manual) APTT ABG pH POC ABG pCO2 POC ABG pO2 ABG pO2 ABG HCO3 ABG O2 Saturation ABG Base Excess ABG Hemoglobin Oxyhemoglobin Sodium Potassium Chloride Carbon Dioxide BUN Glucose POC Glucose 152 H 145 H 151 H Calcium Phosphorus Magnesium C-Reactive Protein Total Protein Albumin Triglycerides 08/27/21 08/27/21 08/27/21 03:56 04:25 04:25 WBC 12.4 H RBC 3.39 L Hgb Hct MCV 98 H MCH RDW 15.8 H Seg Neuts % (Manual) Lymphocytes % (Manual) Seg Neutrophils # Man Lymphocytes # (Manual) APTT ABG pH 7.516 H POC ABG pCO2 POC ABG pO2 ABG pO2 117.0 H ABG HCO3 27.2 H ABG O2 Saturation ABG Base Excess 4.3 H ABG Hemoglobin 11.1 L Oxyhemoglobin Sodium Potassium Chloride Carbon Dioxide BUN 27 H Glucose POC Glucose Calcium Phosphorus 2.10 L Magnesium 2.50 H C-Reactive Protein Total Protein Albumin Triglycerides 08/27/21 08/27/21 08/27/21 04:25 17:31 23:37 WBC RBC Hgb Hct MCV MCH RDW Seg Neuts % (Manual) Lymphocytes % (Manual) Seg Neutrophils # Man Lymphocytes # (Manual) APTT ABG pH POC ABG pCO2 POC ABG pO2 ABG pO2 ABG HCO3 ABG O2 Saturation ABG Base Excess ABG Hemoglobin Oxyhemoglobin Sodium Potassium Chloride Carbon Dioxide BUN Glucose POC Glucose 111 H 122 H Calcium Phosphorus Magnesium C-Reactive Protein Total Protein Albumin Triglycerides 200 H 08/28/21 08/28/21 08/28/21 04:11 04:11 05:01 WBC 17.2 H RBC 3.29 L Hgb Hct MCV 99 H MCH RDW 16.2 H Seg Neuts % (Manual) Lymphocytes % (Manual) Seg Neutrophils # Man Lymphocytes # (Manual) APTT ABG pH POC ABG pCO2 POC ABG pO2 ABG pO2 ABG HCO3 ABG O2 Saturation ABG Base Excess ABG Hemoglobin Oxyhemoglobin Sodium Potassium Chloride 109.2 H Carbon Dioxide BUN 22 H Glucose 137 H POC Glucose 133 H Calcium Phosphorus Magnesium C-Reactive Protein Total Protein Albumin Triglycerides 08/28/21 08/28/21 08/29/21 11:18 17:34 00:37 WBC RBC Hgb Hct MCV MCH RDW Seg Neuts % (Manual) Lymphocytes % (Manual) Seg Neutrophils # Man Lymphocytes # (Manual) APTT ABG pH POC ABG pCO2 POC ABG pO2 ABG pO2 ABG HCO3 ABG O2 Saturation ABG Base Excess ABG Hemoglobin Oxyhemoglobin Sodium Potassium Chloride Carbon Dioxide BUN Glucose POC Glucose 144 H 131 H 125 H Calcium Phosphorus Magnesium C-Reactive Protein Total Protein Albumin Triglycerides 08/29/21 08/29/21 08/29/21 04:12 04:12 06:17 WBC 22.7 H RBC 3.35 L Hgb Hct MCV 98 H MCH RDW 16.0 H Seg Neuts % (Manual) Lymphocytes % (Manual) Seg Neutrophils # Man Lymphocytes # (Manual) APTT ABG pH POC ABG pCO2 POC ABG pO2 ABG pO2 ABG HCO3 ABG O2 Saturation ABG Base Excess ABG Hemoglobin Oxyhemoglobin Sodium Potassium Chloride Carbon Dioxide BUN 19 H Glucose 121 H POC Glucose 117 H Calcium Phosphorus Magnesium C-Reactive Protein Total Protein Albumin Triglycerides 08/29/21 08/29/21 08/30/21 11:54 18:00 00:17 WBC RBC Hgb Hct MCV MCH RDW Seg Neuts % (Manual) Lymphocytes % (Manual) Seg Neutrophils # Man Lymphocytes # (Manual) APTT ABG pH POC ABG pCO2 POC ABG pO2 ABG pO2 ABG HCO3 ABG O2 Saturation ABG Base Excess ABG Hemoglobin Oxyhemoglobin Sodium Potassium Chloride Carbon Dioxide BUN Glucose POC Glucose 123 H 117 H 115 H Calcium Phosphorus Magnesium C-Reactive Protein Total Protein Albumin Triglycerides 08/30/21 08/30/21 08/30/21 03:22 03:22 11:05 WBC 20.3 H RBC 3.29 L Hgb Hct MCV MCH RDW 15.6 H Seg Neuts % (Manual) 87.0 H Lymphocytes % (Manual) 10.0 L Seg Neutrophils # Man 17.7 H Lymphocytes # (Manual) APTT ABG pH POC ABG pCO2 POC ABG pO2 ABG pO2 ABG HCO3 ABG O2 Saturation ABG Base Excess ABG Hemoglobin Oxyhemoglobin Sodium Potassium Chloride Carbon Dioxide BUN 21 H Glucose 129 H POC Glucose 110 H Calcium Phosphorus Magnesium C-Reactive Protein Total Protein Albumin Triglycerides 08/31/21 08/31/21 08/31/21 00:10 05:26 05:26 WBC 13.2 H RBC 3.28 L Hgb Hct MCV MCH RDW 15.9 H Seg Neuts % (Manual) Lymphocytes % (Manual) Seg Neutrophils # Man Lymphocytes # (Manual) APTT ABG pH POC ABG pCO2 POC ABG pO2 ABG pO2 ABG HCO3 ABG O2 Saturation ABG Base Excess ABG Hemoglobin Oxyhemoglobin Sodium Potassium Chloride Carbon Dioxide BUN 23 H Glucose 123 H POC Glucose 138 H Calcium Phosphorus Magnesium C-Reactive Protein Total Protein Albumin Triglycerides 08/31/21 08/31/21 08/31/21 06:13 11:27 17:19 WBC RBC Hgb Hct MCV MCH RDW Seg Neuts % (Manual) Lymphocytes % (Manual) Seg Neutrophils # Man Lymphocytes # (Manual) APTT ABG pH POC ABG pCO2 POC ABG pO2 ABG pO2 ABG HCO3 ABG O2 Saturation ABG Base Excess ABG Hemoglobin Oxyhemoglobin Sodium Potassium Chloride Carbon Dioxide BUN Glucose POC Glucose 135 H 149 H 152 H Calcium Phosphorus Magnesium C-Reactive Protein Total Protein Albumin Triglycerides 08/31/21 09/01/21 09/01/21 23:29 05:43 11:05 WBC RBC Hgb Hct MCV MCH RDW Seg Neuts % (Manual) Lymphocytes % (Manual) Seg Neutrophils # Man Lymphocytes # (Manual) APTT ABG pH POC ABG pCO2 POC ABG pO2 ABG pO2 ABG HCO3 ABG O2 Saturation ABG Base Excess ABG Hemoglobin Oxyhemoglobin Sodium Potassium Chloride Carbon Dioxide BUN Glucose POC Glucose 121 H 119 H 113 H Calcium Phosphorus Magnesium C-Reactive Protein Total Protein Albumin Triglycerides 09/01/21 09/01/21 09/01/21 11:42 11:42 23:40 WBC 13.0 H RBC 3.38 L Hgb Hct MCV 98 H MCH RDW Seg Neuts % (Manual) Lymphocytes % (Manual) Seg Neutrophils # Man Lymphocytes # (Manual) APTT ABG pH POC ABG pCO2 POC ABG pO2 ABG pO2 ABG HCO3 ABG O2 Saturation ABG Base Excess ABG Hemoglobin Oxyhemoglobin Sodium Potassium Chloride Carbon Dioxide BUN 18 H Glucose 111 H POC Glucose 139 H Calcium Phosphorus Magnesium C-Reactive Protein Total Protein Albumin Triglycerides 09/02/21 09/02/21 09/02/21 04:08 04:08 05:31 WBC RBC 3.30 L Hgb Hct MCV 98 H MCH 33 H RDW 15.6 H Seg Neuts % (Manual) Lymphocytes % (Manual) Seg Neutrophils # Man Lymphocytes # (Manual) APTT ABG pH POC ABG pCO2 POC ABG pO2 ABG pO2 ABG HCO3 ABG O2 Saturation ABG Base Excess ABG Hemoglobin Oxyhemoglobin Sodium 132 L Potassium Chloride Carbon Dioxide 20 L BUN Glucose 131 H POC Glucose 124 H Calcium Phosphorus Magnesium C-Reactive Protein 29.40 H Total Protein Albumin Triglycerides 09/02/21 09/03/21 09/03/21 17:37 09:09 09:09 WBC 11.9 H RBC 2.99 L Hgb 9.5 L Hct 29.0 L MCV MCH RDW 15.6 H Seg Neuts % (Manual) Lymphocytes % (Manual) Seg Neutrophils # Man Lymphocytes # (Manual) APTT ABG pH POC ABG pCO2 POC ABG pO2 ABG pO2 ABG HCO3 ABG O2 Saturation ABG Base Excess ABG Hemoglobin Oxyhemoglobin Sodium 133 L Potassium Chloride Carbon Dioxide BUN 19 H Glucose POC Glucose 108 H Calcium Phosphorus Magnesium C-Reactive Protein Total Protein Albumin Triglycerides 09/03/21 09/04/21 12:00 04:15 WBC RBC Hgb Hct MCV MCH RDW Seg Neuts % (Manual) Lymphocytes % (Manual) Seg Neutrophils # Man Lymphocytes # (Manual) APTT ABG pH POC ABG pCO2 POC ABG pO2 ABG pO2 ABG HCO3 ABG O2 Saturation ABG Base Excess ABG Hemoglobin Oxyhemoglobin Sodium 132 L Potassium 3.0 L Chloride Carbon Dioxide BUN Glucose 113 H POC Glucose 64 L Calcium Phosphorus Magnesium C-Reactive Protein Total Protein Albumin 2.4 L Triglycerides
[2021-09-04] MEDS: MINERAL OIL ENEMA 133 ML PR SCH (12:11)
[2021-09-04 12:27] LABS: Hematocrit 30.4 % (30.3-42.9); Hemoglobin 9.9 gm/dl (10.1-14.3); Mean Corpuscular HGB Conc 33 % (30-34); Mean Corpuscular Volume 97 fl (79-97); Platelet Count 317 K/mm3 (140-440); Red Blood Count 3.13 M/mm3 (3.65-5.03); Red Cell Distribution Width 15.2 % (13.2-15.2)
[2021-09-04] MEDS: LORazepam 2 MG/ML VIAL IV PRN (15:00)
--- NOTE | 2021-09-04 15:41 | Progress Note ---
Assessment and Plan 76 yo F s/p laparoscopic partial gastrectomy, gastrostomy tube placement on 09/01/2021 for a large erosion in the anterior stomach from a PEG tube dislodgement CT scan A/P images and report reviewed independently - Gastric tube in place but no balloon visible. No free air or fluid. Plan: 1. Tube leaking because balloon not filled. This promptly resolved after filling balloon. Will obtain G tube study prior to starting TF. 2. If G tube study shows tube to be in stomach, ok to start TF at goal 3. Would hold off on TPN for now 4. trach management per ICU team D/W Altagracia [employer] TECHNICIAN and patient's RN. G tube study discussed with xray technologist. Thank you, please call with questions. Subjective Date of service: 09/04/21 Narrative: Pt seen and examined. G tube has been leaking around skin and has been placed to LIWS with clear output. Patient c/o pain near trach site. No other issues. Objective Vital Signs - 12hr 09/04/21 09/04/21 09/04/21 03:50 04:00 05:00 Temperature Pulse Rate 74 72 77 Pulse Rate [ 71 From Monitor] Respiratory 26 H 19 Rate Blood Pressure 114/72 112/70 110/59 O2 Sat by Pulse 97 95 97 Oximetry O2 Sat by Pulse 96 Oximetry [ Assessment] 09/04/21 09/04/21 09/04/21 06:00 07:00 07:37 Temperature Pulse Rate 73 77 Pulse Rate [ From Monitor] Respiratory 37 H 25 H Rate Blood Pressure 120/69 131/70 O2 Sat by Pulse 95 98 Oximetry O2 Sat by Pulse 99 Oximetry [ Assessment] 09/04/21 09/04/21 09/04/21 07:39 08:00 09:00 Temperature 98.7 F Pulse Rate 73 72 Pulse Rate [ 74 From Monitor] Respiratory 30 H 30 H Rate Blood Pressure 128/72 122/73 O2 Sat by Pulse 98 98 98 Oximetry O2 Sat by Pulse Oximetry [ Assessment] 09/04/21 09/04/21 09/04/21 10:00 11:01 12:00 Temperature Pulse Rate 72 84 81 Pulse Rate [ 74 From Monitor] Respiratory 29 H 21 37 H Rate Blood Pressure 120/71 122/78 138/83 O2 Sat by Pulse 97 98 96 Oximetry O2 Sat by Pulse Oximetry [ Assessment] 09/04/21 15:26 Temperature Pulse Rate Pulse Rate [ From Monitor] Respiratory Rate Blood Pressure O2 Sat by Pulse Oximetry O2 Sat by Pulse 100 Oximetry [ Assessment] - General physical appearance Narrative Exam: Gen; Awake and alert. ENT: Trach in place, site c/d/i. Angioedema has resolved CV: S1, S2+ Resp; even and unlabored Abd: soft, NT, ND. Clear gastric leakage from around G tube entry site and clear fluid in tubing. Dressing and suction released. Balloon port aspirated and there is no fluid in balloon port. gastric port aspirated with return of gastric fluid without resistance and flushes easily. Balloon port instilled with 8 cc of saline. PEG pulled up towards skin and is secure at 6cm at the skin. Leaking resolved. Gastric port once again aspirated and flushes without resistance and no further leakage from skin. New dressing applied. - Labs 09/04/21 11:15 09/04/21 04:15 Diabetes panel 09/04/21 Range/Units 04:15 Sodium 132 L (137-145) mmol/L Potassium 3.0 L (3.6-5.0) mmol/L Chloride 99.2 (98-107) mmol/L Carbon Dioxide 22 (22-30) mmol/L BUN 11 (7-17) mg/dL Creatinine 0.6 (0.6-1.2) mg/dL Glucose 113 H (65-100) mg/dL Calcium 9.1 (8.4-10.2) mg/dL AST 19 (5-40) units/L ALT 16 (7-56) units/L Alkaline Phosphatase 102 (35-129) units/L Total Protein 6.6 (6.3-8.2) g/dL Albumin 2.4 L (3.9-5) g/dL Calcium panel 09/04/21 Range/Units 04:15 Calcium 9.1 (8.4-10.2) mg/dL Phosphorus 3.00 (2.5-4.5) mg/dL Albumin 2.4 L (3.9-5) g/dL Pituitary panel 09/04/21 Range/Units 04:15 Sodium 132 L (137-145) mmol/L Potassium 3.0 L (3.6-5.0) mmol/L Chloride 99.2 (98-107) mmol/L Carbon Dioxide 22 (22-30) mmol/L BUN 11 (7-17) mg/dL Creatinine 0.6 (0.6-1.2) mg/dL Glucose 113 H (65-100) mg/dL Calcium 9.1 (8.4-10.2) mg/dL Adrenal panel 09/04/21 Range/Units 04:15 Sodium 132 L (137-145) mmol/L Potassium 3.0 L (3.6-5.0) mmol/L Chloride 99.2 (98-107) mmol/L Carbon Dioxide 22 (22-30) mmol/L BUN 11 (7-17) mg/dL Creatinine 0.6 (0.6-1.2) mg/dL Glucose 113 H (65-100) mg/dL Calcium 9.1 (8.4-10.2) mg/dL Total Bilirubin 0.30 (0.1-1.2) mg/dL AST 19 (5-40) units/L ALT 16 (7-56) units/L Alkaline Phosphatase 102 (35-129) units/L Total Protein 6.6 (6.3-8.2) g/dL Albumin 2.4 L (3.9-5) g/dL
[2021-09-04] MEDS ORDERED: D5W/0.45% NACL 1,000 ML IV SCH ×2 (16:00→18:00)
--- NOTE | 2021-09-04 16:26 | XRay Report ---
ABDOMEN 2 VIEWS INDICATION / CLINICAL INFORMATION: G-tube study. COMPARISON: None available. FINDINGS: There is a gastrostomy tube overlying the stomach on the initial image. The second image demonstrates contrast in the stomach without extravasation. No acute abnormality is seen. IMPRESSION: G-tube without complication. Signer Name: Babatunde Moran MD Signed: 09/04/2021 4:22 PM Workstation Name: [id number]
--- NOTE | 2021-09-04 17:06 | Progress Note ---
<SHITALRAQUEL MckennaGideon - Last Filed: 09/04/21 17:01> Assessment and Plan Assessment and plan: This is a 76-year-old female with hypertension, depression and hypothyroidism admitted with angioedema and intubated for airway protection Neuro: h/o depression -Restart home thiamine, multivitamin, Zoloft, BuSpar and as needed Xanax -Tramadol prn -Avoid delirium -Reorientation as needed -Maintain sleep-wake cycle -As needed analgesia Cardiac: h/o htn -Blood pressure monitoring per protocol -Hydralazine as needed -resume home antihypertenisve regimen when available and if needed Respiratory: Acute hypoxic respiratory failure, angioedema -CCM consulted, appreciate recommendations -Intubated in the emergency department on 08/19 with 7.50 ETT at 24 the lips, extubated 08/25 but reintubated shortly after -s/p trach and peg 08/26 -T piece trials -VAP bundle -SPO2 monitoring -s/p Benadryl, Pepcid, Solu-Medrol GI: MO, malpositioned peg tube -s/p peg 08/26 -24 hours -300 mL -PPI -NTR consulted for tube feedings -BR: Senna,colace, miralax -08/29 suppository, 08/30 mag citrate, 08/31 lactulose q2 -CT abd/pelvis shows misposition of PEG -IR consult by surgery for replacement in IR lab under flouro -S/p 09/01 EGD, removal of PEG tube, laparoscopic exploration, lysis of adhesions, stable closure of gastrotomy site, placement of gastric tube 20 Serbian -Noted to have bilious drainage, currently on LIS -Dr. Young replaced air to gtube balloon and gastrografen xray showed no extravastation -will restart TF : Urinary retention -Strict intake and output -Renally dose medications -Avoid nephrotoxic medications -Daily weights -Trend BMP -Lewis reinserted -bladder scan and training ID: Sepsis/SIRS secondary to right lower lobe pneumonia, Intra-Op finding of esophageal candidiasis -Seen on CT A/P -ID consulted, appreciate recommendations -Per ID: Sputum culture growing usual respiratory david and aztreonam discontinued -Vancomycin discontinued as MRSA PCR negative -Antibiotic therapy: Levofloxacin for 5 days and fluconazole for 14 days -f/u blood culture -Monitor WBC and temperature curve Endo: h/o hypothyroidism -continue synthroid -Avoid hypoglycemia -SSI -Accu-Cheks q. 6 Heme: Leukocytosis -Trend CBC -Transfuse hemoglobin less than 7 -Monitor for signs of bleeding -SCDs to BLE while in bed -heparin subq The high probability of a clinically significant, sudden or life threatening deterioration of the [resp] system(s) required my full and direct attention, intervention and personal management. The aggregate critical care time was [60] minutes. This time is in addition to time spent performing reported procedures but includes the following: [x] Data Review and interpretation [x] Patient assessment and monitoring of vital signs [x] Documentation [x] Medication orders and management Disposition Plan: icu Total Time Spent with Patient (Minutes): 60 History Interval history: This is a 76-year-old female with HTN, depression, hypothyroidism who presented to the emergency department on 08/19 via EMS with angioedema reportedly caused by amlodipine however the patient was able to maintain her airway. Per documentation patient was given patient was given 50 mg of IV Benadryl, 0.5 mg epinephrine, 125 mg of IV Solu-Medrol by EMS. At 0235 patient was intubated in the emergency department. Patient was admitted to the hospitalist service with angioedema and mechanical ventilation for airway protection with consults to [facility]. Hospital course to date: 08/19: Patient started on tube feedings, potassium repleted, started on Benadryl and propofol for sedation. SSI started. Air leak present today however due to swelling of the tongue we will hold off extubation. [facility] plans to try FFP in the a.m. if swelling not better. 08/20: Angioedema slightly better so we will hold off FFP today. Updated son at bedside but he did not know what medication she was taking and states that she has not had angioedema in the past. Patient still remains on Versed and propofol. Was given 500 mL bolus overnight for hypotension and will repeat for hypotension. 08/21: Leak test today at bedside with RT shows no leak and will give FFP today. Tongue looks a bit smaller today but given no leak, [facility] will not extubate today. Sedated with propofol and versed. Son at bedside today. 08/22: RT performed leak test in the AM and stated there was a leak noted and placed the patient on CPAP. She was sedated on versed at 4 and propofol at 30 but these are off for CPAP. Will removed lewis. Received FFP yesterday. Angioedema is improved. Leak test performed again with Dr. Bailey and no leak audible. Switched back to AC and sedation restarted 08/23: Remains on the vent and sedated. Cuff leak assessed again today by [facility], still no significant air leak noted. Per [facility] keep patient intubated and sedated and continue IV steroids and histamine therapy for now. Fentanyl gtt added, plan to wean off versed for RASS goal of 0 to -1. 08/24: Arousable and appropriate on the vent and on low dose sedation. No cuff leak again today per RT. D/W [facility] plan for CT neck w/o contrast for further eval. If CT neck normal, PSV trial and possible extubation tomorrow. 08/25: S/p extubation this am, audible stridor appreciated. S/p X2 doses of RaceEpi and IV solumedrol X1 dose. Patient currently stable on 4L NC, SPO2 at 94%. Patient is low threshold for re-intubation, case discussed with anesthesia in case of any decompensation. D/w [facility] patient will need a trach if she is reintubated. Plan of care was thoroughly discussed with patient's son at the bedside by the bill clerk. All question and concerns were addressed at this time. 08/26: Reintubated yesterday due to stridor. General Surgery consulted, plan for possible trach and PEG today. Hypotension resolved this am most likely due to sedation for intubation, VSS today. Wean SPO2 as tolerated for SPO2 above 90%. Continue to monitor and replete electrolytes as needed. 08/27: s/p Trach and PEG overnight. Patient is stable on the vent this am, sedated on propofol and fentanyl. okay to use PEG-tube per general surgery, resume TF as ordered. PRN Analgesia added for pain control, wean off sedation as tolerated. Plan for possible PSV trial tomorrow. 08/28: Stable on the vent, still on sedation. Schedule tramadol and PRN fentanyl added for pain control, plan to wean sedation as tolerated. Possible PSV trial tomorrow if off sedation. PRN Xanax for anxiety. BR added for constipation. 08/29: Back on propofol from overnight due to increase anxiety. Patient is awake and calm this am, will D/C propofol and use PRN Xanax as needed for anxiety. Continue schedule tramadol and PRN fentanyl for pain control. Patient with increase secretion today, orally and via trach. Patient is also febrile with spike in WBCs, Chest XR ordered and will panculture. Hold off IV abx for now. Will also remove lewis catheter, straight/cath and bladder scan per protocol. 08/30: Ordered mag citrate today as suppositories do not yield any results yesterday, will start bladder training today. Remains afebrile. PSV per RT. 08/31: D/w Dr Jenkins, will attempt t peice trial for 24 hrs. Ultimately dispo for this patient will be SNF if able to tolerate trial. Paged in afternoon regarding projectile vomiting. No residual noted in PEG tube. KUB ordered. Will likely order Mag citrate as patient has not had BM. 09/01: This AM noted to have bleeding from trach site and peg tube noted to be misplaced with brown drainage. Dr. Mays alerted and came to bedside. RT states suture was removed from trach which stopped the bleeding. Neck and Abd/Pelvis CT ordered. Abd CT showed pef displacement and surgery contacted vascular surgery who will take the patient to IR. Stat CBC and BMP obtained. ID consulted re PCN allergy and sputum culture sent re concern for Pseudumonas in trach aspirate. meds changed to iv 09/02-patient seen at bedside. Awake-she reports coughing and asking for cough medicine. Pt is s/p peg placement. Pt is NPO and on gently IV fluid for hydration. Will start feeding per surgery. Reviewed lab and v/s. Patient not in acute distress. I discussed plan of care with Dr Jenkins-will restart tube feeding, Heprin subcutaneous, continue IV diflucan and f/u with ID reces for abx. Will continue PS F-SMO-Nexgrmft T-piece tomorrow if patient is stable. 09/03: Patient having bilious drainage from PEG tube entrance site, awaiting surgery around. Started on mineral enemas, T-max 102, aztreonam IV, then discontinued, RN to monitor disimpact the patient. Patient will be started on TPN. PICC consult for PICC 09/04: Dr. Young recommends holding off tube feeds and she inflated the balloon for G-tube. Gastrografin x-ray completed which states PEG tube is in stomach without extravasation and tube feedings will be restarted. Continues on T- piece. No acute events reported overnight. MIVF continues. Hospitalist Physical - Constitutional Vitals: Temp Pulse Resp BP Pulse Ox 98.7 F 74 18 138/83 100 09/04/21 08:00 09/04/21 12:00 09/04/21 12:00 09/04/21 12:00 09/04/21 15:26 General appearance: Present: no acute distress, well-nourished, obese - EENT Eyes: Present: PERRL, EOM intact ENT: hearing intact, clear oral mucosa, dentition normal - Neck Neck: Present: normal ROM - Respiratory Respiratory effort: normal Respiratory: bilateral: diminished - Cardiovascular Rhythm: regular Heart Sounds: Present: S1 & S2. Absent: systolic murmur, diastolic murmur - Extremities Extremities: no ischemia, pulses intact, pulses symmetrical, No edema, normal temperature, normal color Peripheral Pulses: within normal limits - Abdominal General gastrointestinal: soft, non-tender, non-distended, normal bowel sounds - Integumentary Integumentary: Present: warm, dry - Psychiatric Psychiatric: cooperative - Neurologic Neurologic: CNII-XII intact, no focal deficits, moves all extremities - Allied Health Allied health notes reviewed: nursing, RT Results - Labs CBC & Chem 7: 09/04/21 11:15 09/04/21 04:15 Labs: Laboratory Last Values WBC 12.1 K/mm3 (4.5-11.0) H 09/04/21 11:15 RBC 3.13 M/mm3 (3.65-5.03) L 09/04/21 11:15 Hgb 9.9 gm/dl (10.1-14.3) L 09/04/21 11:15 Hct 30.4 % (30.3-42.9) 09/04/21 11:15 MCV 97 fl (79-97) 09/04/21 11:15 MCH 32 pg (28-32) 09/04/21 11:15 MCHC 33 % (30-34) 09/04/21 11:15 RDW 15.2 % (13.2-15.2) 09/04/21 11:15 Plt Count 317 K/mm3 (140-440) 09/04/21 11:15 Lymph # (Auto) [employer]ising [employer] 08/19/21 02:24 Add Manual Diff Complete 08/30/21 03:22 Total Counted 100 08/30/21 03:22 Seg Neuts % (Manual) 87.0 % (40.0-70.0) H 08/30/21 03:22 Band Neutrophils % 0 % 08/30/21 03:22 Lymphocytes % (Manual) 10.0 % (13.4-35.0) L 08/30/21 03:22 Reactive Lymphs % (Man) 0 % 08/30/21 03:22 Monocytes % (Manual) 3.0 % (0.0-7.3) 08/30/21 03:22 Eosinophils % (Manual) 0 % (0.0-4.3) 08/30/21 03:22 Basophils % (Manual) 0 % (0.0-1.8) 08/30/21 03:22 Metamyelocytes % 0 % 08/30/21 03:22 Myelocytes % 0 % 08/30/21 03:22 Promyelocytes % 0 % 08/30/21 03:22 Blast Cells % 0 % 08/30/21 03:22 Nucleated RBC % Not Reportable 08/30/21 03:22 Seg Neutrophils # Man 17.7 K/mm3 (1.8-7.7) H 08/30/21 03:22 Band Neutrophils # 0.0 K/mm3 08/30/21 03:22 Lymphocytes # (Manual) 2.0 K/mm3 (1.2-5.4) 08/30/21 03:22 Abs React Lymphs (Man) 0.0 K/mm3 08/30/21 03:22 Monocytes # (Manual) 0.6 K/mm3 (0.0-0.8) 08/30/21 03:22 Eosinophils # (Manual) 0.0 K/mm3 (0.0-0.4) 08/30/21 03:22 Basophils # (Manual) 0.0 K/mm3 (0.0-0.1) 08/30/21 03:22 Metamyelocytes # 0.0 K/mm3 08/30/21 03:22 Myelocytes # 0.0 K/mm3 08/30/21 03:22 Promyelocytes # 0.0 K/mm3 08/30/21 03:22 Blast Cells # 0.0 K/mm3 08/30/21 03:22 WBC Morphology Not Reportable 08/30/21 03:22 Hypersegmented Neuts Not Reportable 08/30/21 03:22 Hyposegmented Neuts Not Reportable 08/30/21 03:22 Hypogranular Neuts Not Reportable 08/30/21 03:22 Smudge Cells Not Reportable 08/30/21 03:22 Toxic Granulation Not Reportable 08/30/21 03:22 Toxic Vacuolation Not Reportable 08/30/21 03:22 Dohle Bodies Not Reportable 08/30/21 03:22 Pelger-Huet Anomaly Not Reportable 08/30/21 03:22 Erik Rods Not Reportable 08/30/21 03:22 Platelet Estimate Consistent w auto 08/30/21 03:22 Clumped Platelets Not Reportable 08/30/21 03:22 Plt Clumps, EDTA Not Reportable 08/30/21 03:22 Large Platelets Not Reportable 08/30/21 03:22 Giant Platelets Not Reportable 08/30/21 03:22 Platelet Satelliting Not Reportable 08/30/21 03:22 Plt Morphology Comment Not Reportable 08/30/21 03:22 RBC Morphology Normal 08/30/21 03:22 Dimorphic RBCs Not Reportable 08/30/21 03:22 Polychromasia Not Reportable 08/30/21 03:22 Hypochromasia Not Reportable 08/30/21 03:22 Poikilocytosis Not Reportable 08/30/21 03:22 Anisocytosis Not Reportable 08/30/21 03:22 Microcytosis Not Reportable 08/30/21 03:22 Macrocytosis Not Reportable 08/30/21 03:22 Spherocytes Not Reportable 08/30/21 03:22 Pappenheimer Bodies Not Reportable 08/30/21 03:22 Sickle Cells Not Reportable 08/30/21 03:22 Target Cells Not Reportable 08/30/21 03:22 Tear Drop Cells Not Reportable 08/30/21 03:22 Ovalocytes Not Reportable 08/30/21 03:22 Helmet Cells Not Reportable 08/30/21 03:22 Rai-Valdese Bodies Not Reportable 08/30/21 03:22 [place]ino Rings Not Reportable 08/30/21 03:22 Caprice Cells Not Reportable 08/30/21 03:22 Bite Cells Not Reportable 08/30/21 03:22 Crenated Cell Not Reportable 08/30/21 03:22 Elliptocytes Not Reportable 08/30/21 03:22 Acanthocytes (Spur) Not Reportable 08/30/21 03:22 Rouleaux Not Reportable 08/30/21 03:22 Hemoglobin C Crystals Not Reportable 08/30/21 03:22 Schistocytes Not Reportable 08/30/21 03:22 Malaria parasites Not Reportable 08/30/21 03:22 Marco Bodies Not Reportable 08/30/21 03:22 Hem Pathologist Commnt No 08/30/21 03:22 PT 12.8 Sec. (12.2-14.9) 08/19/21 02:24 INR 0.87 (0.87-1.13) 08/19/21 02:24 APTT 20.0 Sec. (24.2-36.6) L 08/19/21 02:24 ABG pH 7.516 pH Units (7.350-7.450) H 08/27/21 03:56 POC ABG pCO2 30.1 mmHg (32.0-48.0) L 08/22/21 10:16 ABG pCO2 34.4 mm Hg 08/27/21 03:56 POC ABG pO2 109.5 mmHg (83-108) H 08/22/21 10:16 ABG pO2 117.0 mm Hg (80.0-90.0) H 08/27/21 03:56 POC ABG HCO3 23.5 08/22/21 10:16 ABG HCO3 27.2 mmol/L (20.0-26.0) H 08/27/21 03:56 ABG O2 Saturation 98.4 % (95.0-99.0) 08/27/21 03:56 ABG O2 Content 15.3 (0.0-44) 08/27/21 03:56 POC ABG Base Excess 1.2 08/22/21 10:16 ABG Base Excess 4.3 mmol/L (-2.0-3.0) H 08/27/21 03:56 ABG Hemoglobin 11.1 gm/dl (12.0-16.0) L 08/27/21 03:56 ABG Oxyhemoglobin 96.8 (94-98) 08/22/21 10:16 ABG Carboxyhemoglobin 1.0 % (0.0-5.0) 08/27/21 03:56 ABG Methemoglobin 0.5 % (0.0-1.5) 08/27/21 03:56 ABG Sodium Not Reportable 08/22/21 10:16 ABG Potassium Not Reportable 08/22/21 10:16 ABG Chloride Not Reportable 08/22/21 10:16 ABG Glucose Not Reportable 08/22/21 10:16 Oxyhemoglobin 96.9 % (95.0-99.0) 08/27/21 03:56 Carboxyhemoglobin 1.1 (0.5-1.5) 08/22/21 10:16 FiO2 40 % 08/27/21 03:56 FiO2 % 30.0 08/22/21 10:16 Sodium 132 mmol/L (137-145) L 09/04/21 04:15 Potassium 3.0 mmol/L (3.6-5.0) L 09/04/21 04:15 Chloride 99.2 mmol/L (98-107) 09/04/21 04:15 Carbon Dioxide 22 mmol/L (22-30) 09/04/21 04:15 Anion Gap 14 mmol/L 09/04/21 04:15 BUN 11 mg/dL (7-17) 09/04/21 04:15 Creatinine 0.6 mg/dL (0.6-1.2) 09/04/21 04:15 Estimated GFR > 60 ml/min 09/04/21 04:15 BUN/Creatinine Ratio 18 % 09/04/21 04:15 Glucose 113 mg/dL (65-100) H 09/04/21 04:15 POC Glucose 109 mg/dL (70-105) H 09/04/21 05:23 Calcium 9.1 mg/dL (8.4-10.2) 09/04/21 04:15 Phosphorus 3.00 mg/dL (2.5-4.5) 09/04/21 04:15 Magnesium 2.10 mg/dL (1.7-2.3) 09/04/21 04:15 Total Bilirubin 0.30 mg/dL (0.1-1.2) 09/04/21 04:15 AST 19 units/L (5-40) 09/04/21 04:15 ALT 16 units/L (7-56) 09/04/21 04:15 Alkaline Phosphatase 102 units/L (35-129) 09/04/21 04:15 C-Reactive Protein 29.40 mg/dL (0.00-1.30) H 09/02/21 04:08 Total Protein 6.6 g/dL (6.3-8.2) 09/04/21 04:15 Albumin 2.4 g/dL (3.9-5) L 09/04/21 04:15 Albumin/Globulin Ratio 0.6 % 09/04/21 04:15 Triglycerides 200 mg/dL (2-149) H 08/27/21 04:25 Procalcitonin 1.34 ng/mL (<0.15) 09/02/21 04:08 Arterial Blood Glucose Not Reportable 08/22/21 10:16 Nasal Screen MRSA (PCR) Negative (Negative) 09/01/21 12:15 Blood Type A POSITIVE 08/21/21 15:10 Microbiology: Microbiology 09/01/21 07:34 Peripheral/Venous Blood Culture - Preliminary NO GROWTH AFTER 72 HOURS 09/01/21 07:34 Peripheral/Venous Blood Culture - Preliminary NO GROWTH AFTER 72 HOURS 09/01/21 12:20 Tracheal Aspirate Sputum Culture - Final Lewis/IV: Voiding Method Indwelling Catheter Active Medications - Current Medications Current Medications: Generic Name Dose Route Start Last Admin Trade Name Freq PRN Reason Stop Dose Admin Acetaminophen 650 mg 08/19/21 06:00 09/02/21 14:20 Acetaminophen 325 Mg Tab FEEDTUBE 650 mg Q4H PRN Administration Fever >100.5/SAEED/MILD PAIN 1-3 Albuterol 2.5 mg 08/19/21 04:50 Albuterol 2.5 Mg/3 Ml Nebu IH Q3HRT PRN Shortness Of Breath Dextrose 50 ml 08/20/21 10:00 09/03/21 12:34 Dextrose 50% In Water (25gm) 50 Ml Syringe IV 15 ml Q30MIN PRN Administration Hypoglycemia Protocol Famotidine 20 mg 09/01/21 13:00 09/04/21 11:00 Famotidine 20 Mg/2 Ml Inj IV 20 mg BID WARD Administration Haloperidol Lactate 5 mg 08/29/21 09:58 09/03/21 17:39 Haloperidol Lactate 5 Mg/1 Ml Inj IV 5 mg Q6H PRN Administration Agitation Heparin Sodium (Porcine) 5,000 unit 08/19/21 10:00 09/04/21 11:00 Heparin 5,000 Unit/1 Ml Vial SUB-Q 5,000 unit Q12HR WARD Administration Hydralazine HCl 10 mg 08/19/21 05:03 08/24/21 18:09 Hydralazine 20 Mg/1 Ml Inj IV 10 mg Q6H PRN Administration SBP >/=160; DBP >/=100 Levofloxacin/Dextrose 750 mg in 150 mls @ 100 mls/hr 09/01/21 14:00 09/04/21 15:00 Levaquin 750mg/150ml IV 09/05/21 15:29 100 mls/hr Q24H WARD Administration Protocol Fluconazole 200 mg in 100 mls @ 100 mls/hr 09/01/21 20:00 09/03/21 22:01 Diflucan IV 09/14/21 20:59 Infused Q24H [facility] Infusion Protocol Dextrose/Sodium Chloride 1,000 mls @ 75 mls/hr 09/04/21 18:00 D5/0.45ns IV DIRECT [facility] Insulin Human Regular 0 units 08/20/21 12:00 09/04/21 12:34 Insulin Regular, Human 100 Units/1 Ml SUB-Q Not Given Q6H [facility] Protocol Levothyroxine Sodium 75 mcg 09/01/21 13:00 09/04/21 12:10 Levothyroxine 100 Mcg Inj IV 75 mcg DAILY@0600 WARD Administration Lorazepam 1 mg 09/03/21 20:22 09/04/21 15:00 Lorazepam 2 Mg/Ml Vial IV 1 mg Q3HR PRN Administration Anxiety Mineral Oil 133 ml 09/03/21 10:00 09/04/21 12:11 Mineral Oil Enema 133 Ml NV 133 ml QDAY WARD Administration Ondansetron HCl 4 mg 08/19/21 04:50 Ondansetron 4 Mg/2 Ml Inj IV Q8H PRN Nausea And Vomiting Sodium Chloride 10 ml 08/19/21 10:00 09/04/21 11:28 Sodium Chloride 0.9% 10 Ml Flush Syringe IV 10 ml BID WARD Administration Sodium Chloride 10 ml 08/19/21 04:50 Sodium Chloride 0.9% 10 Ml Flush Syringe IV PRN PRN LINE FLUSH Nutrition/Malnutrition Assess - Dietary Evaluation Nutrition/Malnutrition Findings: Nutrition Notes Start: 08/19/21 10:13 Freq: Status: Active Protocol: Document 09/04/21 10:03 LOGAN (Rec: 09/04/21 10:07 LOGAN [id number]) Nutrition Notes Need for Assessment generated from: MD Order Initial or Follow up Reassessment Current Diagnosis Respiratory Failure Other Pertinent Diagnosis s/p exp lap with lysis of adhesions, angioedema Current Diet NPO Labs/Tests Na 132 K 3 Pertinent Medications D5 1/2NS at 125ml/hr, Colace, Pepcid, Miralax, Senokot, Sucalfate Height 4 ft 11 in Weight 74 kg [place] Body Weight (kg) 43.18 BMI 32.9 Weight Status Obese Subjective/Other Information RD consulted for TPN. Pt remains on vent support. Pt is s/p EGD on 09/01 with removal of PEG tube and exp lap with lysis of adhesions and closure of gastrostomy site. NGT placed to LIS with bilious drainage noted. PICC line placed yesterday. TF being hel at this time sec to report of increased discharge around new PEG tube. CT of abdomen and pelvis revealed no evidence of bowel obstruction or free air. Pt had an enema yesterday. Burn Absent Trauma Absent #1 Nutrition Diagnosis Inadequate oral intake Diagnosis Progress(for reassessment Continues documentation) Is patient on ventilator? Yes Is Patient Ambulatory and/or Out of Bed No REE-([facility]-confined to bed) 1375.068 Kcal/Kg value to use for calculation 17 Approximate Energy Requirements Using 1258 kcal/Kg Calculation Used for Recommendations Kcal/kg Additional Notes Pro needs 2g/kg IBW: 86g/day Fluid needs 1ml/kcal Nutrition Intervention Nutrition Support: Start CPN at 75ml/hr: MVI, Thiamine, 3.6% amino acids, 5. 6% dextrose, 150mEq Na, 80mEq K, 5mEq Mg, 10mmol Phos, 50%/ 50% chloride/acetate. Osmolality: 900. Kcal 600 Protein (gm) 65 Carbohydrates (gm) 100 Fat (gm) 0 Fluid (mL) 1,800 Fiber (gm) 0 Goal #1 PN to meet nutrient needs as best possible Follow-Up By: 09/05/21 Additional Comments Labs in am: BMP, Mg, Phos F/U: vent status, PEG use, BM <LEVI CONNELL - Last Filed: 09/07/21 16:46> Assessment and Plan Assessment and plan: I saw and evaluated the patient. Discussed with the nurse practitioner and agree with their findings and plan as documented in this note. Hospitalist Physical - Constitutional Vitals: Temp Pulse Resp BP Pulse Ox 98.1 F 88 16 127/79 97 09/07/21 08:13 09/07/21 12:00 09/07/21 08:13 09/07/21 08:13 09/07/21 08:57 Results - Labs CBC & Chem 7: 09/07/21 06:00 09/07/21 06:00 Labs: Laboratory Last Values WBC 9.6 K/mm3 (4.5-11.0) 09/07/21 06:00 RBC 2.92 M/mm3 (3.65-5.03) L 09/07/21 06:00 Hgb 9.5 gm/dl (10.1-14.3) L 09/07/21 06:00 Hct 28.2 % (30.3-42.9) L 09/07/21 06:00 MCV 97 fl (79-97) 09/07/21 06:00 MCH 33 pg (28-32) H 09/07/21 06:00 MCHC 34 % (30-34) 09/07/21 06:00 RDW 15.2 % (13.2-15.2) 09/07/21 06:00 Plt Count 394 K/mm3 (140-440) 09/07/21 06:00 Lymph % (Auto) 30.6 % (13.4-35.0) 09/07/21 06:00 [place] % (Auto) 4.5 % (0.0-7.3) 09/07/21 06:00 Eos % (Auto) 5.7 % (0.0-4.3) H 09/07/21 06:00 Baso % (Auto) 1.3 % (0.0-1.8) 09/07/21 06:00 Lymph # (Auto) 2.9 K/mm3 (1.2-5.4) 09/07/21 06:00 [place] # (Auto) 0.4 K/mm3 (0.0-0.8) 09/07/21 06:00 Eos # (Auto) 0.5 K/mm3 (0.0-0.4) H 09/07/21 06:00 Baso # (Auto) 0.1 K/mm3 (0.0-0.1) 09/07/21 06:00 Add Manual Diff Complete 08/30/21 03:22 Total Counted 100 08/30/21 03:22 Seg Neutrophils % 57.9 % (40.0-70.0) 09/07/21 06:00 Seg Neuts % (Manual) 87.0 % (40.0-70.0) H 08/30/21 03:22 Band Neutrophils % 0 % 08/30/21 03:22 Lymphocytes % (Manual) 10.0 % (13.4-35.0) L 08/30/21 03:22 Reactive Lymphs % (Man) 0 % 08/30/21 03:22 Monocytes % (Manual) 3.0 % (0.0-7.3) 08/30/21 03:22 Eosinophils % (Manual) 0 % (0.0-4.3) 08/30/21 03:22 Basophils % (Manual) 0 % (0.0-1.8) 08/30/21 03:22 Metamyelocytes % 0 % 08/30/21 03:22 Myelocytes % 0 % 08/30/21 03:22 Promyelocytes % 0 % 08/30/21 03:22 Blast Cells % 0 % 08/30/21 03:22 Nucleated RBC % Not Reportable 08/30/21 03:22 Seg Neutrophils # 5.5 K/mm3 (1.8-7.7) 09/07/21 06:00 Seg Neutrophils # Man 17.7 K/mm3 (1.8-7.7) H 08/30/21 03:22 Band Neutrophils # 0.0 K/mm3 08/30/21 03:22 Lymphocytes # (Manual) 2.0 K/mm3 (1.2-5.4) 08/30/21 03:22 Abs React Lymphs (Man) 0.0 K/mm3 08/30/21 03:22 Monocytes # (Manual) 0.6 K/mm3 (0.0-0.8) 08/30/21 03:22 Eosinophils # (Manual) 0.0 K/mm3 (0.0-0.4) 08/30/21 03:22 Basophils # (Manual) 0.0 K/mm3 (0.0-0.1) 08/30/21 03:22 Metamyelocytes # 0.0 K/mm3 08/30/21 03:22 Myelocytes # 0.0 K/mm3 08/30/21 03:22 Promyelocytes # 0.0 K/mm3 08/30/21 03:22 Blast Cells # 0.0 K/mm3 08/30/21 03:22 WBC Morphology Not Reportable 08/30/21 03:22 Hypersegmented Neuts Not Reportable 08/30/21 03:22 Hyposegmented Neuts Not Reportable 08/30/21 03:22 Hypogranular Neuts Not Reportable 08/30/21 03:22 Smudge Cells Not Reportable 08/30/21 03:22 Toxic Granulation Not Reportable 08/30/21 03:22 Toxic Vacuolation Not Reportable 08/30/21 03:22 Dohle Bodies Not Reportable 08/30/21 03:22 Pelger-Huet Anomaly Not Reportable 08/30/21 03:22 Erik Rods Not Reportable 08/30/21 03:22 Platelet Estimate Consistent w auto 08/30/21 03:22 Clumped Platelets Not Reportable 08/30/21 03:22 Plt Clumps, EDTA Not Reportable 08/30/21 03:22 Large Platelets Not Reportable 08/30/21 03:22 Giant Platelets Not Reportable 08/30/21 03:22 Platelet Satelliting Not Reportable 08/30/21 03:22 Plt Morphology Comment Not Reportable 08/30/21 03:22 RBC Morphology Normal 08/30/21 03:22 Dimorphic RBCs Not Reportable 08/30/21 03:22 Polychromasia Not Reportable 08/30/21 03:22 Hypochromasia Not Reportable 08/30/21 03:22 Poikilocytosis Not Reportable 08/30/21 03:22 Anisocytosis Not Reportable 08/30/21 03:22 Microcytosis Not Reportable 08/30/21 03:22 Macrocytosis Not Reportable 08/30/21 03:22 Spherocytes Not Reportable 08/30/21 03:22 Pappenheimer Bodies Not Reportable 08/30/21 03:22 Sickle Cells Not Reportable 08/30/21 03:22 Target Cells Not Reportable 08/30/21 03:22 Tear Drop Cells Not Reportable 08/30/21 03:22 Ovalocytes Not Reportable 08/30/21 03:22 Helmet Cells Not Reportable 08/30/21 03:22 Rai-Valdese Bodies Not Reportable 08/30/21 03:22 [place]ino Rings Not Reportable 08/30/21 03:22 Franklin Cells Not Reportable 08/30/21 03:22 Bite Cells Not Reportable 08/30/21 03:22 Crenated Cell Not Reportable 08/30/21 03:22 Elliptocytes Not Reportable 08/30/21 03:22 Acanthocytes (Spur) Not Reportable 08/30/21 03:22 Rouleaux Not Reportable 08/30/21 03:22 Hemoglobin C Crystals Not Reportable 08/30/21 03:22 Schistocytes Not Reportable 08/30/21 03:22 Malaria parasites Not Reportable 08/30/21 03:22 Marco Bodies Not Reportable 08/30/21 03:22 Hem Pathologist Commnt No 08/30/21 03:22 PT 12.8 Sec. (12.2-14.9) 08/19/21 02:24 INR 0.87 (0.87-1.13) 08/19/21 02:24 APTT 20.0 Sec. (24.2-36.6) L 08/19/21 02:24 ABG pH 7.516 pH Units (7.350-7.450) H 08/27/21 03:56 POC ABG pCO2 30.1 mmHg (32.0-48.0) L 08/22/21 10:16 ABG pCO2 34.4 mm Hg 08/27/21 03:56 POC ABG pO2 109.5 mmHg (83-108) H 08/22/21 10:16 ABG pO2 117.0 mm Hg (80.0-90.0) H 08/27/21 03:56 POC ABG HCO3 23.5 08/22/21 10:16 ABG HCO3 27.2 mmol/L (20.0-26.0) H 08/27/21 03:56 ABG O2 Saturation 98.4 % (95.0-99.0) 08/27/21 03:56 ABG O2 Content 15.3 (0.0-44) 08/27/21 03:56 POC ABG Base Excess 1.2 08/22/21 10:16 ABG Base Excess 4.3 mmol/L (-2.0-3.0) H 08/27/21 03:56 ABG Hemoglobin 11.1 gm/dl (12.0-16.0) L 08/27/21 03:56 ABG Oxyhemoglobin 96.8 (94-98) 08/22/21 10:16 ABG Carboxyhemoglobin 1.0 % (0.0-5.0) 08/27/21 03:56 ABG Methemoglobin 0.5 % (0.0-1.5) 08/27/21 03:56 ABG Sodium Not Reportable 08/22/21 10:16 ABG Potassium Not Reportable 08/22/21 10:16 ABG Chloride Not Reportable 08/22/21 10:16 ABG Glucose Not Reportable 08/22/21 10:16 Oxyhemoglobin 96.9 % (95.0-99.0) 08/27/21 03:56 Carboxyhemoglobin 1.1 (0.5-1.5) 08/22/21 10:16 FiO2 40 % 08/27/21 03:56 FiO2 % 30.0 08/22/21 10:16 Sodium 136 mmol/L (137-145) L 09/07/21 06:00 Potassium 3.9 mmol/L (3.6-5.0) 09/07/21 06:00 Chloride 98.0 mmol/L (98-107) 09/07/21 06:00 Carbon Dioxide 28 mmol/L (22-30) D 09/07/21 06:00 Anion Gap 14 mmol/L 09/07/21 06:00 BUN 11 mg/dL (7-17) 09/07/21 06:00 Creatinine 0.6 mg/dL (0.6-1.2) 09/07/21 06:00 Estimated GFR > 60 ml/min 09/07/21 06:00 BUN/Creatinine Ratio 18 % 09/07/21 06:00 Glucose 111 mg/dL (65-100) H 09/07/21 06:00 POC Glucose 113 mg/dL (70-105) H 09/07/21 16:13 Calcium 10.3 mg/dL (8.4-10.2) H 09/07/21 06:00 Phosphorus 3.30 mg/dL (2.5-4.5) D 09/06/21 04:00 Magnesium 2.00 mg/dL (1.7-2.3) 09/06/21 04:00 Total Bilirubin 0.30 mg/dL (0.1-1.2) 09/04/21 04:15 AST 19 units/L (5-40) 09/04/21 04:15 ALT 16 units/L (7-56) 09/04/21 04:15 Alkaline Phosphatase 102 units/L (35-129) 09/04/21 04:15 C-Reactive Protein 29.40 mg/dL (0.00-1.30) H 09/02/21 04:08 Total Protein 6.6 g/dL (6.3-8.2) 09/04/21 04:15 Albumin 2.4 g/dL (3.9-5) L 09/04/21 04:15 Albumin/Globulin Ratio 0.6 % 09/04/21 04:15 Triglycerides 200 mg/dL (2-149) H 08/27/21 04:25 Procalcitonin 1.34 ng/mL (<0.15) 09/02/21 04:08 Arterial Blood Glucose Not Reportable 08/22/21 10:16 Nasal Screen MRSA (PCR) Negative (Negative) 09/01/21 12:15 Blood Type A POSITIVE 08/21/21 15:10 Lewis/IV: Voiding Method Indwelling Catheter Active Medications - Current Medications Current Medications: Generic Name Dose Route Start Last Admin Trade Name Freq PRN Reason Stop Dose Admin Acetaminophen 650 mg 08/19/21 06:00 09/02/21 14:20 Acetaminophen 325 Mg Tab FEEDTUBE 650 mg Q4H PRN Administration Fever >100.5/SAEED/MILD PAIN 1-3 Albuterol 2.5 mg 08/19/21 04:50 Albuterol 2.5 Mg/3 Ml Nebu IH Q3HRT PRN Shortness Of Breath Atorvastatin Calcium 10 mg 09/05/21 22:00 09/06/21 22:14 Atorvastatin 10 Mg Tab FEEDTUBE 10 mg QHS WARD Administration Buspirone HCl 10 mg 09/05/21 10:00 09/07/21 10:03 Buspirone 10 Mg Tab FEEDTUBE 10 mg BID WARD Administration Dextrose 50 ml 08/20/21 10:00 09/03/21 12:34 Dextrose 50% In Water (25gm) 50 Ml Syringe IV 15 ml Q30MIN PRN Administration Hypoglycemia Protocol Diphenhydramine HCl 25 mg 09/07/21 15:00 Diphenhydramine 25 Mg Cap PO Q8H PRN Itching Folic Acid 1 mg 09/05/21 10:00 09/07/21 10:03 Folic Acid 1 Mg Tab FEEDTUBE 1 mg QDAY WARD Administration Haloperidol Lactate 5 mg 08/29/21 09:58 09/03/21 17:39 Haloperidol Lactate 5 Mg/1 Ml Inj IV 5 mg Q6H PRN Administration Agitation Heparin Sodium (Porcine) 5,000 unit 08/19/21 10:00 09/07/21 10:03 Heparin 5,000 Unit/1 Ml Vial SUB-Q 5,000 unit Q12HR WARD Administration Hydralazine HCl 10 mg 08/19/21 05:03 08/24/21 18:09 Hydralazine 20 Mg/1 Ml Inj IV 10 mg Q6H PRN Administration SBP >/=160; DBP >/=100 Fluconazole 200 mg in 100 mls @ 100 mls/hr 09/01/21 20:00 09/06/21 20:50 Diflucan IV 09/14/21 20:59 100 mls/hr Q24H WARD Administration Protocol Insulin Human Regular 0 units 08/20/21 12:00 09/07/21 12:23 Insulin Regular, Human 100 Units/1 Ml SUB-Q Not Given Q6H WARD Protocol Levothyroxine Sodium 150 mcg 09/07/21 12:00 09/07/21 13:26 Levothyroxine 150 Mcg Tab FEEDTUBE 150 mcg DAILY@0600 WARD Administration Lorazepam 0.25 mg 09/05/21 14:41 09/07/21 13:27 Lorazepam 0.5 Mg Tab FEEDTUBE 0.25 mg BID PRN Administration Agitation Mineral Oil 133 ml 09/05/21 08:49 Mineral Oil Enema 133 Ml NV QDAY PRN Constipation Ondansetron HCl 4 mg 08/19/21 04:50 Ondansetron 4 Mg/2 Ml Inj IV Q8H PRN Nausea And Vomiting Senna 8.8 mg 09/05/21 22:00 09/06/21 22:15 Sennosides Oral Liqd 8.8 Mg/5 Ml Oral Liqd FEEDTUBE 8.8 mg QHS WARD Administration Sodium Chloride 10 ml 08/19/21 10:00 09/07/21 10:04 Sodium Chloride 0.9% 10 Ml Flush Syringe IV 10 ml BID WARD Administration Sodium Chloride 10 ml 08/19/21 04:50 Sodium Chloride 0.9% 10 Ml Flush Syringe IV PRN PRN LINE FLUSH Sucralfate 1 gm 09/05/21 12:00 09/07/21 13:26 Sucralfate 1 Gm/10 Ml Oral Liqd FEEDTUBE 1 gm Q6HR WARD Administration Thiamine HCl 100 mg 09/05/21 10:00 09/07/21 10:04 Thiamine 100 Mg Tab FEEDTUBE 100 mg QDAY WARD Administration Tramadol HCl 50 mg 09/05/21 14:42 09/07/21 13:27 Tramadol 50 Mg Tab FEEDTUBE 50 mg Q4H PRN Administration Pain, Moderate (4-6) Nutrition/Malnutrition Assess - Dietary Evaluation Nutrition/Malnutrition Findings: Nutrition Notes Start: 08/19/21 10:13 Freq: Status: Active Protocol: Document 09/06/21 14:58 ABRAHAM (Rec: 09/06/21 15:18 ABRAHAM [id number]) Nutrition Notes Initial or Follow up Brief Note Current Diagnosis Hypertension,Respiratory Failure Other Pertinent Diagnosis s/p PEG Placement,Angioedema, Urinary Retention, Hypothyroidism, Depression Current Diet TF-Glucerna 1.2 Dieudonne @ 45 ml/hr (since 09/05). Height 4 ft 11 in Weight 74 kg [place] Body Weight (kg) 43.18 BMI 32.9 Weight change and time frame No body weight change reported in 12 days. Weight Status Obese Subjective/Other Information RD consult for routine F/U on resumed TF and tolerance. TF resumed on 09/05 and continues as prescribed, well tolerated, according to Progress notes. Pt on Trach-Tube, O2 saturation @ 98%, according to Physical Assessmet History notes. Pt has produced multiple BM, according to Progress notes. Pt to be discharged to SNF, awaiting placemernt, according to Progress notes. Percent of energy/protein needs met: Prescribed TF-Glucerna 1.2 Dieudonne @ 45 ml/hr provides for energy/protein needs (1,269 Kcal/65 g) during LOS, 94% Kcal; 70% AA. #1 Nutrition Diagnosis Inadequate oral intake Diagnosis Progress(for reassessment Continues documentation) Is patient on ventilator? Yes Is Patient Ambulatory and/or Out of Bed No REE-([place]. Jeor-confined to bed) 1375.068 Kcal/Kg value to use for calculation 17 Approximate Energy Requirements Using 1258 kcal/Kg Calculation Used for Recommendations Kcal/kg Additional Notes Protein: 2 g/Kg IBW; 86 g/day. Fluids: 1 ml/Kcal, or as per MD. Nutrition Intervention Nutrition Support: Continue TF-Glucerna 1.2 Dieudonne @ 45 ml/hr. Flush: 70 ml water Q 4 hr, or as per MD. Kcal 1,269 Protein (gm) 65 Carbohydrates (gm) 124 Fat (gm) 65 Fluid (mL) 869 Fiber (gm) 17 % RDI: 94% Kcal; 70% AA. Goal #1 Provide at least 75% of energy /protein needs through Enteral Feeding during LOS. Goal #2 Maintain body weight within +/ -3% of admission body weight during LOS. Follow-Up By: 09/13/21 Additional Comments Continue monitoring, Ventilation status, TF tolerance and BM.
[2021-09-04] MEDS: FLUCONAZOLE 200 MG 200 MG/100 ML BAG IV SCH (19:50)
[2021-09-04] MEDS ORDERED: TOTAL PARENTERAL NUTRITION 1,800 ML IV SCH (20:00)
[2021-09-05] MEDS: INSULIN REGULAR, HUMAN 100 UNITS/1 ML SUB-Q SCH ×4 (00:05→17:53)
[2021-09-05] MEDS: LORazepam 2 MG/ML VIAL IV PRN (03:57)
[2021-09-05 04:59] LABS: Blood Urea Nitrogen 9 mg/dL (7-17); Calcium 9.4 mg/dL (8.4-10.2); Hemolysis Index 2
[2021-09-05 05:13] LABS: BUN/Creatinine Ratio 15
[2021-09-05] MEDS: LEVOTHYROXINE 100 MCG INJ IV SCH (05:19)
[2021-09-05] MEDS ORDERED: MINERAL OIL ENEMA 133 ML PR PRN (08:49)
[2021-09-05] MEDS: busPIRone 10 MG TAB FEEDTUBE SCH ×2 (09:40→21:56)
[2021-09-05] MEDS: THIAMINE 100 MG TAB FEEDTUBE SCH (09:40)
[2021-09-05] MEDS: FOLIC ACID 1 MG TAB FEEDTUBE SCH (09:40)
--- NOTE | 2021-09-05 09:40 | Progress Note ---
Assessment and Plan 76 y/o female with acute respiratory failure secondary to angioedema 09/05/21: Feeding patient and tolerating. No TPN needed right now. Change meds back to PO. Stable for transfer to floor. 09/04/21: Will ask surgery how they feel about possibly downsizing trach to a 6 cuffed. patient not intubated for lung reasons, all upper airway issues. If so then could have speech assess with PMV and possible swallow eval. If tolerated 6 and 4 is need could go to that faster and then have speech see again. Goal of this is to have her on TPN for as little time as possible. Follow up surgery recs after they see patient today. Guarded prognosis. 09/03/21: Enema today. Await surgery eval and recs. Continue T-piece and only rest on PSV if absolutely needed. Abx per ID 09/02/21: Resume feeding today. Tolerating PSV trial, if continues will attempt T-piece tomorrow. Restart Heparin. Guarded prognosis. Back on Diflucan 09/01/21: Hold on any weaning today. Hold heparin for 24 hours. Surgery spoke with IR, they will attempt to replace peg tube. Changed as many meds to IV as possible. ID has now been consulted so will defer all abx therapy to them. Guarded prognosis, family not at bedside this am. 08/31/21: Dropped PSV to 10/6, if tolerates then in a few hours place on T- piece. Rest on PSV tonight. Then 24 hours of T-piece tomorrow. Most likely transfer out of unit on . Will discuss urine situation with nursing staff. Voided and has had no issues so will not place lewis. Spiked a temp. Repeat cultures with next temperature spike and will start on Diflucan empirically for oral candidiasis. 08/30/21: Start bladder training q4 hours. All cultures negative thus far and no further temps. Given Mag Citrate today, if no BM in the next 24, will start some scheduled lactulose. Continue PSV as tolerated. 08/29/21: Agree with hernandez culture, hold on abx, remove lewis. Repeat CXR. Per nursing has not had bowel movement in at least 4 days. Check KUB. PSV trials to start soon 08/28/21: would like to get patient off of continuous sedation so will scheduled tramadol therapy with hopes of weaning Fent Drip. Will order fent 50Q2 PRN pain to help with this as well. Will likely need to be placed on bowel regimen to prevent constipation. Once off continuous drips, can start PSV trials. 08/27/21: Start using peg. Continue PRN fent pushes and will add PRN tramadol as well. Wean sedation off. Can start PSV trials as early as tomorrow. 1. Agree with IV steroids 2. Suggest adding scheduled benadryl and pepcid 3. If swelling does not improve in the next 24-48 hours, suggest a trial of FFP 4. Wean FiO2 for sats > 88% CCT 31 minutes Subjective Date of service: 09/05/21 Interval history: No acute events. Remains on T-piece. tube study shows good placement Objective Vital Signs - 12hr 09/04/21 09/04/21 09/05/21 22:00 23:00 00:00 Temperature 99.4 F Pulse Rate 81 Pulse Rate [ 81 From Monitor] Pulse Rate [ 84 85 79 Radial] Respiratory 27 H 40 H 24 Rate Blood Pressure 105/63 105/63 111/72 O2 Sat by Pulse 96 95 96 Oximetry O2 Sat by Pulse Oximetry [ Assessment] 09/05/21 09/05/21 09/05/21 01:00 01:05 02:00 Temperature Pulse Rate Pulse Rate [ From Monitor] Pulse Rate [ 82 71 Radial] Respiratory 28 H 31 H Rate Blood Pressure 108/75 117/67 O2 Sat by Pulse 98 98 Oximetry O2 Sat by Pulse 99 Oximetry [ Assessment] 09/05/21 09/05/21 09/05/21 03:00 04:00 06:00 Temperature 99.7 F H Pulse Rate 79 Pulse Rate [ 81 From Monitor] Pulse Rate [ 82 83 83 Radial] Respiratory 28 H 20 18 Rate Blood Pressure 126/74 124/74 116/74 O2 Sat by Pulse 97 97 98 Oximetry O2 Sat by Pulse Oximetry [ Assessment] 09/05/21 08:07 Temperature Pulse Rate 93 H Pulse Rate [ From Monitor] Pulse Rate [ Radial] Respiratory Rate Blood Pressure 123/72 O2 Sat by Pulse 98 Oximetry O2 Sat by Pulse Oximetry [ Assessment] Constitutional: no acute distress, other (Sedated) ENT: other (orally intubated, macroglossia) Neck: supple, no lymphadenopathy Effort: other (Supported on ventilator) Ascultation: Bilateral: clear Percussion: Bilateral: not dull Cardiovascular: regular rate and rhythm Gastrointestinal: normoactive bowel sounds Extremities: no cyanosis, no edema, pink and warm Neurologic: other (Sedated) Psychiatric: other (Sedated) CBC and BMP: 09/04/21 11:15 09/05/21 Unknown ABG, PT/INR, D-dimer: ABG ABG pH 7.516 pH Units (7.350-7.450) H 08/27/21 03:56 POC ABG pCO2 30.1 mmHg (32.0-48.0) L 08/22/21 10:16 ABG pCO2 34.4 mm Hg 08/27/21 03:56 POC ABG pO2 109.5 mmHg (83-108) H 08/22/21 10:16 ABG pO2 117.0 mm Hg (80.0-90.0) H 08/27/21 03:56 POC ABG HCO3 23.5 08/22/21 10:16 ABG O2 Saturation 98.4 % (95.0-99.0) 08/27/21 03:56 PT/INR, D-dimer PT 12.8 Sec. (12.2-14.9) 08/19/21 02:24 INR 0.87 (0.87-1.13) 08/19/21 02:24 Abnormal lab findings: Abnormal Labs 08/19/21 08/19/21 08/19/21 02:24 02:24 02:24 WBC 13.9 H RBC Hgb Hct MCV 98 H MCH 33 H RDW 15.7 H Seg Neuts % (Manual) Lymphocytes % (Manual) 52.0 H Seg Neutrophils # Man Lymphocytes # (Manual) 7.2 H APTT 20.0 L ABG pH POC ABG pCO2 POC ABG pO2 ABG pO2 ABG HCO3 ABG O2 Saturation ABG Base Excess ABG Hemoglobin Oxyhemoglobin Sodium Potassium 3.3 L Chloride Carbon Dioxide 20 L BUN Glucose 143 H POC Glucose Calcium Phosphorus Magnesium C-Reactive Protein Total Protein 8.3 H Albumin Triglycerides 08/19/21 08/19/21 08/19/21 06:15 10:20 11:10 WBC RBC Hgb Hct MCV MCH RDW Seg Neuts % (Manual) Lymphocytes % (Manual) Seg Neutrophils # Man Lymphocytes # (Manual) APTT ABG pH 7.465 H 7.503 H POC ABG pCO2 POC ABG pO2 ABG pO2 177.7 H 90.5 H ABG HCO3 ABG O2 Saturation 99.2 H ABG Base Excess ABG Hemoglobin Oxyhemoglobin Sodium Potassium Chloride Carbon Dioxide BUN Glucose POC Glucose 171 H Calcium Phosphorus Magnesium C-Reactive Protein Total Protein Albumin Triglycerides 08/19/21 08/20/21 08/20/21 16:33 00:03 04:25 WBC RBC Hgb Hct MCV 98 H MCH 33 H RDW 15.9 H Seg Neuts % (Manual) 83.0 H Lymphocytes % (Manual) Seg Neutrophils # Man Lymphocytes # (Manual) APTT ABG pH POC ABG pCO2 POC ABG pO2 ABG pO2 ABG HCO3 ABG O2 Saturation ABG Base Excess ABG Hemoglobin Oxyhemoglobin Sodium Potassium Chloride Carbon Dioxide BUN Glucose POC Glucose 179 H 133 H Calcium Phosphorus Magnesium C-Reactive Protein Total Protein Albumin Triglycerides 08/20/21 08/20/21 08/20/21 04:25 04:30 05:39 WBC RBC Hgb Hct MCV MCH RDW Seg Neuts % (Manual) Lymphocytes % (Manual) Seg Neutrophils # Man Lymphocytes # (Manual) APTT ABG pH POC ABG pCO2 POC ABG pO2 ABG pO2 95.5 H ABG HCO3 ABG O2 Saturation ABG Base Excess -2.2 L ABG Hemoglobin Oxyhemoglobin Sodium Potassium Chloride Carbon Dioxide 21 L BUN Glucose 143 H POC Glucose 168 H Calcium 8.2 L Phosphorus Magnesium C-Reactive Protein Total Protein Albumin Triglycerides 08/20/21 08/20/21 08/21/21 12:04 16:38 00:12 WBC RBC Hgb Hct MCV MCH RDW Seg Neuts % (Manual) Lymphocytes % (Manual) Seg Neutrophils # Man Lymphocytes # (Manual) APTT ABG pH POC ABG pCO2 POC ABG pO2 ABG pO2 ABG HCO3 ABG O2 Saturation ABG Base Excess ABG Hemoglobin Oxyhemoglobin Sodium Potassium Chloride Carbon Dioxide BUN Glucose POC Glucose 151 H 135 H 123 H Calcium Phosphorus Magnesium C-Reactive Protein Total Protein Albumin Triglycerides 08/21/21 08/21/21 08/21/21 04:58 04:58 04:59 WBC RBC 3.64 L Hgb Hct MCV 100 H MCH RDW 16.4 H Seg Neuts % (Manual) Lymphocytes % (Manual) Seg Neutrophils # Man Lymphocytes # (Manual) APTT ABG pH POC ABG pCO2 POC ABG pO2 ABG pO2 ABG HCO3 ABG O2 Saturation ABG Base Excess -2.6 L ABG Hemoglobin 11.6 L Oxyhemoglobin Sodium Potassium 3.5 L Chloride 109.5 H Carbon Dioxide 19 L BUN Glucose 159 H POC Glucose Calcium 8.3 L Phosphorus Magnesium C-Reactive Protein Total Protein Albumin Triglycerides 08/21/21 08/21/21 08/21/21 05:22 11:21 16:29 WBC RBC Hgb Hct MCV MCH RDW Seg Neuts % (Manual) Lymphocytes % (Manual) Seg Neutrophils # Man Lymphocytes # (Manual) APTT ABG pH POC ABG pCO2 POC ABG pO2 ABG pO2 ABG HCO3 ABG O2 Saturation ABG Base Excess ABG Hemoglobin Oxyhemoglobin Sodium Potassium Chloride Carbon Dioxide BUN Glucose POC Glucose 143 H 133 H 122 H Calcium Phosphorus Magnesium C-Reactive Protein Total Protein Albumin Triglycerides 08/22/21 08/22/21 08/22/21 00:03 03:54 03:54 WBC RBC 3.53 L Hgb Hct MCV 100 H MCH 33 H RDW 16.7 H Seg Neuts % (Manual) Lymphocytes % (Manual) Seg Neutrophils # Man Lymphocytes # (Manual) APTT ABG pH POC ABG pCO2 POC ABG pO2 ABG pO2 ABG HCO3 ABG O2 Saturation ABG Base Excess ABG Hemoglobin Oxyhemoglobin Sodium Potassium Chloride 107.5 H Carbon Dioxide BUN Glucose 123 H POC Glucose 132 H Calcium Phosphorus Magnesium C-Reactive Protein Total Protein Albumin Triglycerides 08/22/21 08/22/21 08/22/21 04:40 06:08 10:16 WBC RBC Hgb Hct MCV MCH RDW Seg Neuts % (Manual) Lymphocytes % (Manual) Seg Neutrophils # Man Lymphocytes # (Manual) APTT ABG pH 7.454 H 7.511 H POC ABG pCO2 30.1 L POC ABG pO2 109.5 H ABG pO2 109.8 H ABG HCO3 ABG O2 Saturation ABG Base Excess ABG Hemoglobin Oxyhemoglobin Sodium Potassium Chloride Carbon Dioxide BUN Glucose POC Glucose 137 H Calcium Phosphorus Magnesium C-Reactive Protein Total Protein Albumin Triglycerides 08/22/21 08/22/21 08/22/21 10:27 10:27 11:13 WBC RBC Hgb Hct MCV 99 H MCH RDW 16.6 H Seg Neuts % (Manual) Lymphocytes % (Manual) Seg Neutrophils # Man Lymphocytes # (Manual) APTT ABG pH POC ABG pCO2 POC ABG pO2 ABG pO2 ABG HCO3 ABG O2 Saturation ABG Base Excess ABG Hemoglobin Oxyhemoglobin Sodium Potassium Chloride Carbon Dioxide BUN Glucose 129 H POC Glucose 125 H Calcium Phosphorus Magnesium C-Reactive Protein Total Protein Albumin Triglycerides 08/22/21 08/23/21 08/23/21 23:39 04:11 04:11 WBC RBC Hgb Hct MCV 98 H MCH 33 H RDW 16.1 H Seg Neuts % (Manual) Lymphocytes % (Manual) Seg Neutrophils # Man Lymphocytes # (Manual) APTT ABG pH POC ABG pCO2 POC ABG pO2 ABG pO2 ABG HCO3 ABG O2 Saturation ABG Base Excess ABG Hemoglobin Oxyhemoglobin Sodium Potassium Chloride Carbon Dioxide BUN Glucose 148 H POC Glucose 117 H Calcium Phosphorus Magnesium C-Reactive Protein Total Protein Albumin Triglycerides 08/23/21 08/23/21 08/23/21 05:32 11:02 18:04 WBC RBC Hgb Hct MCV MCH RDW Seg Neuts % (Manual) Lymphocytes % (Manual) Seg Neutrophils # Man Lymphocytes # (Manual) APTT ABG pH POC ABG pCO2 POC ABG pO2 ABG pO2 ABG HCO3 ABG O2 Saturation ABG Base Excess ABG Hemoglobin Oxyhemoglobin Sodium Potassium Chloride Carbon Dioxide BUN Glucose POC Glucose 173 H 146 H 129 H Calcium Phosphorus Magnesium C-Reactive Protein Total Protein Albumin Triglycerides 08/24/21 08/24/21 08/24/21 00:27 05:20 06:00 WBC RBC Hgb Hct MCV MCH RDW Seg Neuts % (Manual) Lymphocytes % (Manual) Seg Neutrophils # Man Lymphocytes # (Manual) APTT ABG pH 7.481 H POC ABG pCO2 POC ABG pO2 ABG pO2 95.8 H ABG HCO3 29.8 H ABG O2 Saturation ABG Base Excess 5.8 H ABG Hemoglobin Oxyhemoglobin Sodium Potassium Chloride Carbon Dioxide BUN Glucose POC Glucose 146 H 159 H Calcium Phosphorus Magnesium C-Reactive Protein Total Protein Albumin Triglycerides 08/24/21 08/25/21 08/25/21 11:37 05:13 11:38 WBC RBC Hgb Hct MCV MCH RDW Seg Neuts % (Manual) Lymphocytes % (Manual) Seg Neutrophils # Man Lymphocytes # (Manual) APTT ABG pH POC ABG pCO2 POC ABG pO2 ABG pO2 ABG HCO3 ABG O2 Saturation ABG Base Excess ABG Hemoglobin Oxyhemoglobin Sodium Potassium Chloride Carbon Dioxide BUN Glucose POC Glucose 154 H 121 H 135 H Calcium Phosphorus Magnesium C-Reactive Protein Total Protein Albumin Triglycerides 08/25/21 08/25/21 08/26/21 16:00 17:12 00:04 WBC RBC Hgb Hct MCV MCH RDW Seg Neuts % (Manual) Lymphocytes % (Manual) Seg Neutrophils # Man Lymphocytes # (Manual) APTT ABG pH POC ABG pCO2 POC ABG pO2 ABG pO2 78.3 L ABG HCO3 32.7 H ABG O2 Saturation ABG Base Excess 6.3 H ABG Hemoglobin 11.0 L Oxyhemoglobin 93.9 L Sodium Potassium Chloride Carbon Dioxide BUN Glucose POC Glucose 179 H 140 H Calcium Phosphorus Magnesium C-Reactive Protein Total Protein Albumin Triglycerides 08/26/21 08/26/21 08/26/21 04:22 04:59 04:59 WBC 12.9 H RBC 3.54 L Hgb Hct MCV MCH RDW 15.6 H Seg Neuts % (Manual) Lymphocytes % (Manual) Seg Neutrophils # Man Lymphocytes # (Manual) APTT ABG pH 7.533 H POC ABG pCO2 POC ABG pO2 ABG pO2 76.9 L ABG HCO3 29.2 H ABG O2 Saturation ABG Base Excess 6.4 H ABG Hemoglobin 11.6 L Oxyhemoglobin Sodium Potassium 3.5 L Chloride Carbon Dioxide BUN 28 H Glucose 139 H POC Glucose Calcium Phosphorus Magnesium C-Reactive Protein Total Protein Albumin Triglycerides 08/26/21 08/26/21 08/26/21 05:34 11:21 16:52 WBC RBC Hgb Hct MCV MCH RDW Seg Neuts % (Manual) Lymphocytes % (Manual) Seg Neutrophils # Man Lymphocytes # (Manual) APTT ABG pH POC ABG pCO2 POC ABG pO2 ABG pO2 ABG HCO3 ABG O2 Saturation ABG Base Excess ABG Hemoglobin Oxyhemoglobin Sodium Potassium Chloride Carbon Dioxide BUN Glucose POC Glucose 152 H 145 H 151 H Calcium Phosphorus Magnesium C-Reactive Protein Total Protein Albumin Triglycerides 08/27/21 08/27/21 08/27/21 03:56 04:25 04:25 WBC 12.4 H RBC 3.39 L Hgb Hct MCV 98 H MCH RDW 15.8 H Seg Neuts % (Manual) Lymphocytes % (Manual) Seg Neutrophils # Man Lymphocytes # (Manual) APTT ABG pH 7.516 H POC ABG pCO2 POC ABG pO2 ABG pO2 117.0 H ABG HCO3 27.2 H ABG O2 Saturation ABG Base Excess 4.3 H ABG Hemoglobin 11.1 L Oxyhemoglobin Sodium Potassium Chloride Carbon Dioxide BUN 27 H Glucose POC Glucose Calcium Phosphorus 2.10 L Magnesium 2.50 H C-Reactive Protein Total Protein Albumin Triglycerides 08/27/21 08/27/21 08/27/21 04:25 17:31 23:37 WBC RBC Hgb Hct MCV MCH RDW Seg Neuts % (Manual) Lymphocytes % (Manual) Seg Neutrophils # Man Lymphocytes # (Manual) APTT ABG pH POC ABG pCO2 POC ABG pO2 ABG pO2 ABG HCO3 ABG O2 Saturation ABG Base Excess ABG Hemoglobin Oxyhemoglobin Sodium Potassium Chloride Carbon Dioxide BUN Glucose POC Glucose 111 H 122 H Calcium Phosphorus Magnesium C-Reactive Protein Total Protein Albumin Triglycerides 200 H 08/28/21 08/28/21 08/28/21 04:11 04:11 05:01 WBC 17.2 H RBC 3.29 L Hgb Hct MCV 99 H MCH RDW 16.2 H Seg Neuts % (Manual) Lymphocytes % (Manual) Seg Neutrophils # Man Lymphocytes # (Manual) APTT ABG pH POC ABG pCO2 POC ABG pO2 ABG pO2 ABG HCO3 ABG O2 Saturation ABG Base Excess ABG Hemoglobin Oxyhemoglobin Sodium Potassium Chloride 109.2 H Carbon Dioxide BUN 22 H Glucose 137 H POC Glucose 133 H Calcium Phosphorus Magnesium C-Reactive Protein Total Protein Albumin Triglycerides 08/28/21 08/28/21 08/29/21 11:18 17:34 00:37 WBC RBC Hgb Hct MCV MCH RDW Seg Neuts % (Manual) Lymphocytes % (Manual) Seg Neutrophils # Man Lymphocytes # (Manual) APTT ABG pH POC ABG pCO2 POC ABG pO2 ABG pO2 ABG HCO3 ABG O2 Saturation ABG Base Excess ABG Hemoglobin Oxyhemoglobin Sodium Potassium Chloride Carbon Dioxide BUN Glucose POC Glucose 144 H 131 H 125 H Calcium Phosphorus Magnesium C-Reactive Protein Total Protein Albumin Triglycerides 08/29/21 08/29/21 08/29/21 04:12 04:12 06:17 WBC 22.7 H RBC 3.35 L Hgb Hct MCV 98 H MCH RDW 16.0 H Seg Neuts % (Manual) Lymphocytes % (Manual) Seg Neutrophils # Man Lymphocytes # (Manual) APTT ABG pH POC ABG pCO2 POC ABG pO2 ABG pO2 ABG HCO3 ABG O2 Saturation ABG Base Excess ABG Hemoglobin Oxyhemoglobin Sodium Potassium Chloride Carbon Dioxide BUN 19 H Glucose 121 H POC Glucose 117 H Calcium Phosphorus Magnesium C-Reactive Protein Total Protein Albumin Triglycerides 08/29/21 08/29/21 08/30/21 11:54 18:00 00:17 WBC RBC Hgb Hct MCV MCH RDW Seg Neuts % (Manual) Lymphocytes % (Manual) Seg Neutrophils # Man Lymphocytes # (Manual) APTT ABG pH POC ABG pCO2 POC ABG pO2 ABG pO2 ABG HCO3 ABG O2 Saturation ABG Base Excess ABG Hemoglobin Oxyhemoglobin Sodium Potassium Chloride Carbon Dioxide BUN Glucose POC Glucose 123 H 117 H 115 H Calcium Phosphorus Magnesium C-Reactive Protein Total Protein Albumin Triglycerides 08/30/21 08/30/21 08/30/21 03:22 03:22 11:05 WBC 20.3 H RBC 3.29 L Hgb Hct MCV MCH RDW 15.6 H Seg Neuts % (Manual) 87.0 H Lymphocytes % (Manual) 10.0 L Seg Neutrophils # Man 17.7 H Lymphocytes # (Manual) APTT ABG pH POC ABG pCO2 POC ABG pO2 ABG pO2 ABG HCO3 ABG O2 Saturation ABG Base Excess ABG Hemoglobin Oxyhemoglobin Sodium Potassium Chloride Carbon Dioxide BUN 21 H Glucose 129 H POC Glucose 110 H Calcium Phosphorus Magnesium C-Reactive Protein Total Protein Albumin Triglycerides 08/31/21 08/31/21 08/31/21 00:10 05:26 05:26 WBC 13.2 H RBC 3.28 L Hgb Hct MCV MCH RDW 15.9 H Seg Neuts % (Manual) Lymphocytes % (Manual) Seg Neutrophils # Man Lymphocytes # (Manual) APTT ABG pH POC ABG pCO2 POC ABG pO2 ABG pO2 ABG HCO3 ABG O2 Saturation ABG Base Excess ABG Hemoglobin Oxyhemoglobin Sodium Potassium Chloride Carbon Dioxide BUN 23 H Glucose 123 H POC Glucose 138 H Calcium Phosphorus Magnesium C-Reactive Protein Total Protein Albumin Triglycerides 08/31/21 08/31/21 08/31/21 06:13 11:27 17:19 WBC RBC Hgb Hct MCV MCH RDW Seg Neuts % (Manual) Lymphocytes % (Manual) Seg Neutrophils # Man Lymphocytes # (Manual) APTT ABG pH POC ABG pCO2 POC ABG pO2 ABG pO2 ABG HCO3 ABG O2 Saturation ABG Base Excess ABG Hemoglobin Oxyhemoglobin Sodium Potassium Chloride Carbon Dioxide BUN Glucose POC Glucose 135 H 149 H 152 H Calcium Phosphorus Magnesium C-Reactive Protein Total Protein Albumin Triglycerides 08/31/21 09/01/21 09/01/21 23:29 05:43 11:05 WBC RBC Hgb Hct MCV MCH RDW Seg Neuts % (Manual) Lymphocytes % (Manual) Seg Neutrophils # Man Lymphocytes # (Manual) APTT ABG pH POC ABG pCO2 POC ABG pO2 ABG pO2 ABG HCO3 ABG O2 Saturation ABG Base Excess ABG Hemoglobin Oxyhemoglobin Sodium Potassium Chloride Carbon Dioxide BUN Glucose POC Glucose 121 H 119 H 113 H Calcium Phosphorus Magnesium C-Reactive Protein Total Protein Albumin Triglycerides 09/01/21 09/01/21 09/01/21 11:42 11:42 23:40 WBC 13.0 H RBC 3.38 L Hgb Hct MCV 98 H MCH RDW Seg Neuts % (Manual) Lymphocytes % (Manual) Seg Neutrophils # Man Lymphocytes # (Manual) APTT ABG pH POC ABG pCO2 POC ABG pO2 ABG pO2 ABG HCO3 ABG O2 Saturation ABG Base Excess ABG Hemoglobin Oxyhemoglobin Sodium Potassium Chloride Carbon Dioxide BUN 18 H Glucose 111 H POC Glucose 139 H Calcium Phosphorus Magnesium C-Reactive Protein Total Protein Albumin Triglycerides 09/02/21 09/02/21 09/02/21 04:08 04:08 05:31 WBC RBC 3.30 L Hgb Hct MCV 98 H MCH 33 H RDW 15.6 H Seg Neuts % (Manual) Lymphocytes % (Manual) Seg Neutrophils # Man Lymphocytes # (Manual) APTT ABG pH POC ABG pCO2 POC ABG pO2 ABG pO2 ABG HCO3 ABG O2 Saturation ABG Base Excess ABG Hemoglobin Oxyhemoglobin Sodium 132 L Potassium Chloride Carbon Dioxide 20 L BUN Glucose 131 H POC Glucose 124 H Calcium Phosphorus Magnesium C-Reactive Protein 29.40 H Total Protein Albumin Triglycerides 09/02/21 09/03/21 09/03/21 17:37 09:09 09:09 WBC 11.9 H RBC 2.99 L Hgb 9.5 L Hct 29.0 L MCV MCH RDW 15.6 H Seg Neuts % (Manual) Lymphocytes % (Manual) Seg Neutrophils # Man Lymphocytes # (Manual) APTT ABG pH POC ABG pCO2 POC ABG pO2 ABG pO2 ABG HCO3 ABG O2 Saturation ABG Base Excess ABG Hemoglobin Oxyhemoglobin Sodium 133 L Potassium Chloride Carbon Dioxide BUN 19 H Glucose POC Glucose 108 H Calcium Phosphorus Magnesium C-Reactive Protein Total Protein Albumin Triglycerides 09/03/21 09/04/21 09/04/21 12:00 04:15 05:23 WBC RBC Hgb Hct MCV MCH RDW Seg Neuts % (Manual) Lymphocytes % (Manual) Seg Neutrophils # Man Lymphocytes # (Manual) APTT ABG pH POC ABG pCO2 POC ABG pO2 ABG pO2 ABG HCO3 ABG O2 Saturation ABG Base Excess ABG Hemoglobin Oxyhemoglobin Sodium 132 L Potassium 3.0 L Chloride Carbon Dioxide BUN Glucose 113 H POC Glucose 64 L 109 H Calcium Phosphorus Magnesium C-Reactive Protein Total Protein Albumin 2.4 L Triglycerides 09/04/21 09/05/21 11:15 Unknown WBC 12.1 H RBC 3.13 L Hgb 9.9 L Hct MCV MCH RDW Seg Neuts % (Manual) Lymphocytes % (Manual) Seg Neutrophils # Man Lymphocytes # (Manual) APTT ABG pH POC ABG pCO2 POC ABG pO2 ABG pO2 ABG HCO3 ABG O2 Saturation ABG Base Excess ABG Hemoglobin Oxyhemoglobin Sodium Potassium Chloride Carbon Dioxide BUN Glucose 115 H POC Glucose Calcium Phosphorus Magnesium C-Reactive Protein Total Protein Albumin Triglycerides
[2021-09-05] MEDS: FAMOTIDINE 20 MG/2 ML INJ IV SCH (09:41)
[2021-09-05] MEDS: HEPARIN 5,000 UNIT/1 ML VIAL SUB-Q SCH ×2 (09:41→21:19)
[2021-09-05] MEDS: MULTIVITAMIN / MINERAL ORAL LIQUID 15 ML PO SCH (09:45)
[2021-09-05] MEDS ORDERED: FOLIC ACID 1 MG in SODIUM CHLORIDE 0.9% 50 ML IV SCH (10:00)
[2021-09-05] MEDS ORDERED: THIAMINE 100 MG in SODIUM CHLORIDE 0.9% 50 ML IV SCH (10:00)
--- NOTE | 2021-09-05 11:28 | Progress Note ---
<SHITALRAQUEL HGideon - Last Filed: 09/05/21 14:43> Assessment and Plan Assessment and plan: This is a 76-year-old female with hypertension, depression and hypothyroidism admitted with angioedema and intubated for airway protection Neuro: h/o depression -Restart home thiamine, multivitamin, Zoloft, BuSpar and as needed Xanax -Tramadol prn -Avoid delirium -Reorientation as needed -Maintain sleep-wake cycle -As needed analgesia Cardiac: h/o htn -Blood pressure monitoring per protocol -Hydralazine as needed -resume home antihypertenisve regimen when available and if needed Respiratory: Acute hypoxic respiratory failure, angioedema -CCM consulted, appreciate recommendations -Intubated in the emergency department on 08/19 with 7.50 ETT at 24 the lips, extubated 08/25 but reintubated shortly after -s/p trach and peg 08/26 -T piece trials -VAP bundle -SPO2 monitoring -s/p Benadryl, Pepcid, Solu-Medrol GI: MO, malpositioned peg tube -s/p peg 08/26 -24 hours -300 mL -PPI -NTR consulted for tube feedings -BR: Senna,colace, miralax -08/29 suppository, 08/30 mag citrate, 08/31 lactulose q2 -CT abd/pelvis shows misposition of PEG -IR consult by surgery for replacement in IR lab under flouro -S/p 09/01 EGD, removal of PEG tube, laparoscopic exploration, lysis of adhesions, stable closure of gastrotomy site, placement of gastric tube 20 Amharic -Dr. Young replaced air to gtube balloon and gastrografen xray showed no extravastation on 09/04 -tolerating TF : Urinary retention -Strict intake and output -Renally dose medications -Avoid nephrotoxic medications -Daily weights -Trend BMP -Lewis reinserted -bladder scan and training ID: Sepsis/SIRS secondary to right lower lobe pneumonia, Intra-Op finding of esophageal candidiasis -Seen on CT A/P -ID consulted, appreciate recommendations -Per ID: Sputum culture growing usual respiratory david and aztreonam discontinued -Vancomycin discontinued as MRSA PCR negative -Antibiotic therapy: Levofloxacin for 5 days and fluconazole for 14 days -f/u blood culture -Monitor WBC and temperature curve Endo: h/o hypothyroidism -continue synthroid -Avoid hypoglycemia -SSI -Accu-Cheks q. 6 Heme: Leukocytosis -Trend CBC -Transfuse hemoglobin less than 7 -Monitor for signs of bleeding -SCDs to BLE while in bed -heparin subq The high probability of a clinically significant, sudden or life threatening deterioration of the [resp] system(s) required my full and direct attention, intervention and personal management. The aggregate critical care time was [60] minutes. This time is in addition to time spent performing reported procedures but includes the following: [x] Data Review and interpretation [x] Patient assessment and monitoring of vital signs [x] Documentation [x] Medication orders and management Disposition Plan: transfer to floor Total Time Spent with Patient (Minutes): 60 History Interval history: This is a 76-year-old female with HTN, depression, hypothyroidism who presented to the emergency department on 08/19 via EMS with angioedema reportedly caused by amlodipine however the patient was able to maintain her airway. Per documentation patient was given patient was given 50 mg of IV Benadryl, 0.5 mg epinephrine, 125 mg of IV Solu-Medrol by EMS. At 0235 patient was intubated in the emergency department. Patient was admitted to the hospitalist service with angioedema and mechanical ventilation for airway protection with consults to [facility]. Hospital course to date: 08/19: Patient started on tube feedings, potassium repleted, started on Benadryl and propofol for sedation. SSI started. Air leak present today however due to swelling of the tongue we will hold off extubation. [facility] plans to try FFP in the a.m. if swelling not better. 08/20: Angioedema slightly better so we will hold off FFP today. Updated son at bedside but he did not know what medication she was taking and states that she has not had angioedema in the past. Patient still remains on Versed and propofol. Was given 500 mL bolus overnight for hypotension and will repeat for hypotension. 08/21: Leak test today at bedside with RT shows no leak and will give FFP today. Tongue looks a bit smaller today but given no leak, [facility] will not extubate today. Sedated with propofol and versed. Son at bedside today. 08/22: RT performed leak test in the AM and stated there was a leak noted and placed the patient on CPAP. She was sedated on versed at 4 and propofol at 30 but these are off for CPAP. Will removed lewis. Received FFP yesterday. Clarita oedema is improved. Leak test performed again with Dr. Bailey and no leak audible. Switched back to AC and sedation restarted 08/23: Remains on the vent and sedated. Cuff leak assessed again today by [facility], still no significant air leak noted. Per CCM keep patient intubated and sedated and continue IV steroids and histamine therapy for now. Fentanyl gtt added, plan to wean off versed for RASS goal of 0 to -1. 08/24: Arousable and appropriate on the vent and on low dose sedation. No cuff leak again today per RT. D/W [facility] plan for CT neck w/o contrast for further eval. If CT neck normal, PSV trial and possible extubation tomorrow. 08/25: S/p extubation this am, audible stridor appreciated. S/p X2 doses of RaceEpi and IV solumedrol X1 dose. Patient currently stable on 4L NC, SPO2 at 94%. Patient is low threshold for re-intubation, case discussed with anesthesia in case of any decompensation. D/w CCM patient will need a trach if she is reintubated. Plan of care was thoroughly discussed with patient's son at the bedside by the ruby on rails engineer. All question and concerns were addressed at this antoni e. 08/26: Reintubated yesterday due to stridor. General Surgery consulted, plan for possible trach and PEG today. Hypotension resolved this am most likely due to sedation for intubation, VSS today. Wean SPO2 as tolerated for SPO2 above 90%. Continue to monitor and replete electrolytes as needed. 08/27: s/p Trach and PEG overnight. Patient is stable on the vent this am, sedated on propofol and fentanyl. okay to use PEG-tube per general surgery, resume TF as ordered. PRN Analgesia added for pain control, wean off sedation as tolerated. Plan for possible PSV trial tomorrow. 08/28: Stable on the vent, still on sedation. Schedule tramadol and PRN fentanyl added for pain control, plan to wean sedation as tolerated. Possible PSV trial tomorrow if off sedation. PRN Xanax for anxiety. BR added for constipation. 08/29: Back on propofol from overnight due to increase anxiety. Patient is awake and calm this am, will D/C propofol and use PRN Xanax as needed for anxiety. Continue schedule tramadol and PRN fentanyl for pain control. Patient with increase secretion today, orally and via trach. Patient is also febrile with spike in WBCs, Chest XR ordered and will panculture. Hold off IV abx for now. Will also remove lewis catheter, straight/cath and bladder scan per protocol. 08/30: Ordered mag citrate today as suppositories do not yield any results yesterday, will start bladder training today. Remains afebrile. PSV per RT. 08/31: D/w Dr Jenkins, will attempt t peice trial for 24 hrs. Ultimately dispo for this patient will be SNF if able to tolerate trial. Paged in afternoon regarding projectile vomiting. No residual noted in PEG tube. KUB ordered. Will likely order Mag citrate as patient has not had BM. 09/01: This AM noted to have bleeding from trach site and peg tube noted to be misplaced with brown drainage. Dr. Mays alerted and came to bedside. RT states suture was removed from trach which stopped the bleeding. Neck and Abd/Pelvis CT ordered. Abd CT showed pef displacement and surgery contacted vascular surgery who will take the patient to IR. Stat CBC and BMP obtained. ID consulted re PCN allergy and sputum culture sent re concern for Pseudumonas in trach aspirate. m eds changed to iv 09/02-patient seen at bedside. Awake-she reports coughing and asking for cough medicine. Pt is s/p peg placement. Pt is NPO and on gently IV fluid for hydration. Will start feeding per surgery. Reviewed lab and v/s. Patient not in acute distress. I discussed plan of care with Dr Jenkins-will restart tube feeding, Heprin subcutaneous, continue IV diflucan and f/u with ID reces for abx. Will continue PS [id number] T-piece tomorrow if patient is stable. 09/03: Patient having bilious drainage from PEG tube entrance site, awaiting surgery around. Started on mineral enemas, T-max 102, aztreonam IV, then discontinued, RN to monitor disimpact the patient. Patient will be started on TPN. PICC consult for PICC 09/04: Dr. Young recommends holding off tube feeds and she inflated the balloon for G-tube. Gastrografin x-ray completed which states PEG tube is in stomach without extravasation and tube feedings will be restarted. Continues on T- piece. No acute events reported overnight. MIVF continues. 09/05: Patient restarted on tube feedings overnight and has been tolerating, restarted p.o. medications. Per RN patient has had multiple large BMs. Patient is a tolerating T-piece and will be transferred to the floor today. Hospitalist Physical - Constitutional Vitals: Temp Pulse Resp BP Pulse Ox 98.8 F 93 H 16 123/72 98 09/05/21 08:00 09/05/21 08:07 09/05/21 08:00 09/05/21 08:07 09/05/21 08:07 General appearance: Present: no acute distress, well-nourished, obese - EENT Eyes: Present: PERRL, EOM intact ENT: hearing intact, clear oral mucosa, poor dentition - Neck Neck: Present: normal ROM - Respiratory Respiratory effort: normal Respiratory: bilateral: CTA - Cardiovascular Rhythm: regular Heart Sounds: Present: S1 & S2. Absent: systolic murmur, diastolic murmur - Extremities Extremities: no ischemia, pulses intact, pulses symmetrical, No edema, normal temperature, normal color Peripheral Pulses: within normal limits - Abdominal General gastrointestinal: soft, non-tender, non-distended, normal bowel sounds - Integumentary Integumentary: Present: warm, dry - Psychiatric Psychiatric: appropriate mood/affect, cooperative - Neurologic Neurologic: CNII-XII intact, no focal deficits, moves all extremities - Allied Health Allied health notes reviewed: nursing, RT Results - Labs CBC & Chem 7: 09/04/21 11:15 09/05/21 Unknown Labs: Laboratory Last Values WBC 12.1 K/mm3 (4.5-11.0) H 09/04/21 11:15 RBC 3.13 M/mm3 (3.65-5.03) L 09/04/21 11:15 Hgb 9.9 gm/dl (10.1-14.3) L 09/04/21 11:15 Hct 30.4 % (30.3-42.9) 09/04/21 11:15 MCV 97 fl (79-97) 09/04/21 11:15 MCH 32 pg (28-32) 09/04/21 11:15 MCHC 33 % (30-34) 09/04/21 11:15 RDW 15.2 % (13.2-15.2) 09/04/21 11:15 Plt Count 317 K/mm3 (140-440) 09/04/21 11:15 Lymph # (Auto) [employer]er 08/19/21 02:24 Add Manual Diff Complete 08/30/21 03:22 Total Counted 100 08/30/21 03:22 Seg Neuts % (Manual) 87.0 % (40.0-70.0) H 08/30/21 03:22 Band Neutrophils % 0 % 08/30/21 03:22 Lymphocytes % (Manual) 10.0 % (13.4-35.0) L 08/30/21 03:22 Reactive Lymphs % (Man) 0 % 08/30/21 03:22 Monocytes % (Manual) 3.0 % (0.0-7.3) 08/30/21 03:22 Eosinophils % (Manual) 0 % (0.0-4.3) 08/30/21 03:22 Basophils % (Manual) 0 % (0.0-1.8) 08/30/21 03:22 Metamyelocytes % 0 % 08/30/21 03:22 Myelocytes % 0 % 08/30/21 03:22 Promyelocytes % 0 % 08/30/21 03:22 Blast Cells % 0 % 08/30/21 03:22 Nucleated RBC % Not Reportable 08/30/21 03:22 Seg Neutrophils # Man 17.7 K/mm3 (1.8-7.7) H 08/30/21 03:22 Band Neutrophils # 0.0 K/mm3 08/30/21 03:22 Lymphocytes # (Manual) 2.0 K/mm3 (1.2-5.4) 08/30/21 03:22 Abs React Lymphs (Man) 0.0 K/mm3 08/30/21 03:22 Monocytes # (Manual) 0.6 K/mm3 (0.0-0.8) 08/30/21 03:22 Eosinophils # (Manual) 0.0 K/mm3 (0.0-0.4) 08/30/21 03:22 Basophils # (Manual) 0.0 K/mm3 (0.0-0.1) 08/30/21 03:22 Metamyelocytes # 0.0 K/mm3 08/30/21 03:22 Myelocytes # 0.0 K/mm3 08/30/21 03:22 Promyelocytes # 0.0 K/mm3 08/30/21 03:22 Blast Cells # 0.0 K/mm3 08/30/21 03:22 WBC Morphology Not Reportable 08/30/21 03:22 Hypersegmented Neuts Not Reportable 08/30/21 03:22 Hyposegmented Neuts Not Reportable 08/30/21 03:22 Hypogranular Neuts Not Reportable 08/30/21 03:22 Smudge Cells Not Reportable 08/30/21 03:22 Toxic Granulation Not Reportable 08/30/21 03:22 Toxic Vacuolation Not Reportable 08/30/21 03:22 Dohle Bodies Not Reportable 08/30/21 03:22 Pelger-Huet Anomaly Not Reportable 08/30/21 03:22 Erik Rods Not Reportable 08/30/21 03:22 Platelet Estimate Consistent w auto 08/30/21 03:22 Clumped Platelets Not Reportable 08/30/21 03:22 Plt Clumps, EDTA Not Reportable 08/30/21 03:22 Large Platelets Not Reportable 08/30/21 03:22 Giant Platelets Not Reportable 08/30/21 03:22 Platelet Satelliting Not Reportable 08/30/21 03:22 Plt Morphology Comment Not Reportable 08/30/21 03:22 RBC Morphology Normal 08/30/21 03:22 Dimorphic RBCs Not Reportable 08/30/21 03:22 Polychromasia Not Reportable 08/30/21 03:22 Hypochromasia Not Reportable 08/30/21 03:22 Poikilocytosis Not Reportable 08/30/21 03:22 Anisocytosis Not Reportable 08/30/21 03:22 Microcytosis Not Reportable 08/30/21 03:22 Macrocytosis Not Reportable 08/30/21 03:22 Spherocytes Not Reportable 08/30/21 03:22 Pappenheimer Bodies Not Reportable 08/30/21 03:22 Sickle Cells Not Reportable 08/30/21 03:22 Target Cells Not Reportable 08/30/21 03:22 Tear Drop Cells Not Reportable 08/30/21 03:22 Ovalocytes Not Reportable 08/30/21 03:22 Helmet Cells Not Reportable 08/30/21 03:22 [place] Bodies Not Reportable 08/30/21 03:22 [place] Rings Not Reportable 08/30/21 03:22 Caprice Cells Not Reportable 08/30/21 03:22 Bite Cells Not Reportable 08/30/21 03:22 Crenated Cell Not Reportable 08/30/21 03:22 Elliptocytes Not Reportable 08/30/21 03:22 Acanthocytes (Spur) Not Reportable 08/30/21 03:22 Rouleaux Not Reportable 08/30/21 03:22 Hemoglobin C Crystals Not Reportable 08/30/21 03:22 Schistocytes Not Reportable 08/30/21 03:22 Malaria parasites Not Reportable 08/30/21 03:22 Marco Bodies Not Reportable 08/30/21 03:22 Hem Pathologist Commnt No 08/30/21 03:22 PT 12.8 Sec. (12.2-14.9) 08/19/21 02:24 INR 0.87 (0.87-1.13) 08/19/21 02:24 APTT 20.0 Sec. (24.2-36.6) L 08/19/21 02:24 ABG pH 7.516 pH Units (7.350-7.450) H 08/27/21 03:56 POC ABG pCO2 30.1 mmHg (32.0-48.0) L 08/22/21 10:16 ABG pCO2 34.4 mm Hg 08/27/21 03:56 POC ABG pO2 109.5 mmHg (83-108) H 08/22/21 10:16 ABG pO2 117.0 mm Hg (80.0-90.0) H 08/27/21 03:56 POC ABG HCO3 23.5 08/22/21 10:16 ABG HCO3 27.2 mmol/L (20.0-26.0) H 08/27/21 03:56 ABG O2 Saturation 98.4 % (95.0-99.0) 08/27/21 03:56 ABG O2 Content 15.3 (0.0-44) 08/27/21 03:56 POC ABG Base Excess 1.2 08/22/21 10:16 ABG Base Excess 4.3 mmol/L (-2.0-3.0) H 08/27/21 03:56 ABG Hemoglobin 11.1 gm/dl (12.0-16.0) L 08/27/21 03:56 ABG Oxyhemoglobin 96.8 (94-98) 08/22/21 10:16 ABG Carboxyhemoglobin 1.0 % (0.0-5.0) 08/27/21 03:56 ABG Methemoglobin 0.5 % (0.0-1.5) 08/27/21 03:56 ABG Sodium Not Reportable 08/22/21 10:16 ABG Potassium Not Reportable 08/22/21 10:16 ABG Chloride Not Reportable 08/22/21 10:16 ABG Glucose Not Reportable 08/22/21 10:16 Oxyhemoglobin 96.9 % (95.0-99.0) 08/27/21 03:56 Carboxyhemoglobin 1.1 (0.5-1.5) 08/22/21 10:16 FiO2 40 % 08/27/21 03:56 FiO2 % 30.0 08/22/21 10:16 Sodium 137 mmol/L (137-145) 09/05/21 Unknown Potassium 3.7 mmol/L (3.6-5.0) D 09/05/21 Unknown Chloride 105.6 mmol/L (98-107) 09/05/21 Unknown Carbon Dioxide 22 mmol/L (22-30) 09/05/21 Unknown Anion Gap 13 mmol/L 09/05/21 Unknown BUN 9 mg/dL (7-17) 09/05/21 Unknown Creatinine 0.6 mg/dL (0.6-1.2) 09/05/21 Unknown Estimated GFR > 60 ml/min 09/05/21 Unknown BUN/Creatinine Ratio 15 % 09/05/21 Unknown Glucose 115 mg/dL (65-100) H 09/05/21 Unknown POC Glucose 99 mg/dL (70-105) 09/04/21 18:08 Calcium 9.4 mg/dL (8.4-10.2) 09/05/21 Unknown Phosphorus 2.50 mg/dL (2.5-4.5) 09/05/21 Unknown Magnesium 1.90 mg/dL (1.7-2.3) 09/05/21 Unknown Total Bilirubin 0.30 mg/dL (0.1-1.2) 09/04/21 04:15 AST 19 units/L (5-40) 09/04/21 04:15 ALT 16 units/L (7-56) 09/04/21 04:15 Alkaline Phosphatase 102 units/L (35-129) 09/04/21 04:15 C-Reactive Protein 29.40 mg/dL (0.00-1.30) H 09/02/21 04:08 Total Protein 6.6 g/dL (6.3-8.2) 09/04/21 04:15 Albumin 2.4 g/dL (3.9-5) L 09/04/21 04:15 Albumin/Globulin Ratio 0.6 % 09/04/21 04:15 Triglycerides 200 mg/dL (2-149) H 08/27/21 04:25 Procalcitonin 1.34 ng/mL (<0.15) 09/02/21 04:08 Arterial Blood Glucose Not Reportable 08/22/21 10:16 Nasal Screen MRSA (PCR) Negative (Negative) 09/01/21 12:15 Blood Type A POSITIVE 08/21/21 15:10 Microbiology: Microbiology 09/01/21 07:34 Peripheral/Venous Blood Culture - Preliminary NO GROWTH AFTER 4 DAYS 09/01/21 07:34 Peripheral/Venous Blood Culture - Preliminary NO GROWTH AFTER 4 DAYS Lewis/IV: Voiding Method Indwelling Catheter Active Medications - Current Medications Current Medications: Generic Name Dose Route Start Last Admin Trade Name Freq PRN Reason Stop Dose Admin Acetaminophen 650 mg 08/19/21 06:00 09/02/21 14:20 Acetaminophen 325 Mg Tab FEEDTUBE 650 mg Q4H PRN Administration Fever >100.5/SAEED/MILD PAIN 1-3 Albuterol 2.5 mg 08/19/21 04:50 Albuterol 2.5 Mg/3 Ml Nebu IH Q3HRT PRN Shortness Of Breath Atorvastatin Calcium 10 mg 09/05/21 22:00 Atorvastatin 10 Mg Tab FEEDTUBE QHS WARD Buspirone HCl 10 mg 09/05/21 10:00 09/05/21 09:40 Buspirone 10 Mg Tab FEEDTUBE 10 mg BID WARD Administration Dextrose 50 ml 08/20/21 10:00 09/03/21 12:34 Dextrose 50% In Water (25gm) 50 Ml Syringe IV 15 ml Q30MIN PRN Administration Hypoglycemia Protocol Folic Acid 1 mg 09/05/21 10:00 09/05/21 09:40 Folic Acid 1 Mg Tab FEEDTUBE 1 mg QDAY WARD Administration Haloperidol Lactate 5 mg 08/29/21 09:58 09/03/21 17:39 Haloperidol Lactate 5 Mg/1 Ml Inj IV 5 mg Q6H PRN Administration Agitation Heparin Sodium (Porcine) 5,000 unit 08/19/21 10:00 09/05/21 09:41 Heparin 5,000 Unit/1 Ml Vial SUB-Q 5,000 unit Q12HR WARD Administration Hydralazine HCl 10 mg 08/19/21 05:03 08/24/21 18:09 Hydralazine 20 Mg/1 Ml Inj IV 10 mg Q6H PRN Administration SBP >/=160; DBP >/=100 Levofloxacin/Dextrose 750 mg in 150 mls @ 100 mls/hr 09/01/21 14:00 09/04/21 15:00 Levaquin 750mg/150ml IV 09/05/21 15:29 100 mls/hr Q24H WARD Administration Protocol Fluconazole 200 mg in 100 mls @ 100 mls/hr 09/01/21 20:00 09/04/21 19:50 Diflucan IV 09/14/21 20:59 100 mls/hr Q24H WARD Administration Protocol Insulin Human Regular 0 units 08/20/21 12:00 09/05/21 06:27 Insulin Regular, Human 100 Units/1 Ml SUB-Q Not Given Q6H WARD Protocol Mineral Oil 133 ml 09/05/21 08:49 Mineral Oil Enema 133 Ml MI QDAY PRN Constipation Ondansetron HCl 4 mg 08/19/21 04:50 Ondansetron 4 Mg/2 Ml Inj IV Q8H PRN Nausea And Vomiting Senna 8.8 mg 09/05/21 22:00 Sennosides Oral Liqd 8.8 Mg/5 Ml Oral Liqd FEEDTUBE QHS WARD Sodium Chloride 10 ml 08/19/21 10:00 09/05/21 09:42 Sodium Chloride 0.9% 10 Ml Flush Syringe IV 10 ml BID WARD Administration Sodium Chloride 10 ml 08/19/21 04:50 Sodium Chloride 0.9% 10 Ml Flush Syringe IV PRN PRN LINE FLUSH Sucralfate 1 gm 09/05/21 12:00 Sucralfate 1 Gm/10 Ml Oral Liqd FEEDTUBE Q6HR WARD Thiamine HCl 100 mg 09/05/21 10:00 09/05/21 09:40 Thiamine 100 Mg Tab FEEDTUBE 100 mg QDAY WARD Administration Nutrition/Malnutrition Assess - Dietary Evaluation Nutrition/Malnutrition Findings: Nutrition Notes Start: 08/19/21 10:13 Freq: Status: Active Protocol: Document 09/05/21 10:15 [facility] (Rec: 09/05/21 10:26 [facility] [id number]) Nutrition Notes Need for Assessment generated from: MD Order Initial or Follow up Reassessment Current Diagnosis Respiratory Failure Other Pertinent Diagnosis s/p exp lap with lysis of adhesions, angioedema Current Diet TPN at 75ml/hr Labs/Tests Reviewed Pertinent Medications Reviewed Height 4 ft 11 in Weight 74 kg [place] Body Weight (kg) 43.18 BMI 32.9 Weight Status Obese Subjective/Other Information RD consulted to resume TF. Per surgeon, gastric tube leak was sec to balloon not being filled; this has been resolved and G-tube study showed that tube is in stomach with no signs of leakage. Pt remains on vent support. Burn Absent Trauma Absent #1 Nutrition Diagnosis Inadequate oral intake Diagnosis Progress(for reassessment Continues documentation) Is patient on ventilator? Yes Is Patient Ambulatory and/or Out of Bed No REE-([place] [facility]-confined to bed) 1375.068 Kcal/Kg value to use for calculation 17 Approximate Energy Requirements Using 1258 kcal/Kg Calculation Used for Recommendations Kcal/kg Additional Notes Pro needs 2g/kg IBW: 86g/day Fluid needs 1ml/kcal Nutrition Intervention Nutrition Support: D/C CPN and resume TF ( Glucerna 1.2) at 45ml/hr with 70ml water flush q4h. Kcal 1,296 Protein (gm) 65 Carbohydrates (gm) 124 Fat (gm) 65 Fluid (mL) 869 Fiber (gm) 17 Goal #1 TF tolerance Goal #2 TF to meet at least 75% energy and pro needs Follow-Up By: 09/06/21 Additional Comments F/U: TF restart/tolerance, vent status, BM <LEVI CONNELL - Last Filed: 09/07/21 16:45> Assessment and Plan Assessment and plan: I saw and evaluated the patient. Discussed with the nurse practitioner and agree with their findings and plan as documented in this note. Hospitalist Physical - Constitutional Vitals: Temp Pulse Resp BP Pulse Ox 98.1 F 88 16 127/79 97 09/07/21 08:13 09/07/21 12:00 09/07/21 08:13 09/07/21 08:13 09/07/21 08:57 Results - Labs CBC & Chem 7: 09/07/21 06:00 09/07/21 06:00 Labs: Laboratory Last Values WBC 9.6 K/mm3 (4.5-11.0) 09/07/21 06:00 RBC 2.92 M/mm3 (3.65-5.03) L 09/07/21 06:00 Hgb 9.5 gm/dl (10.1-14.3) L 09/07/21 06:00 Hct 28.2 % (30.3-42.9) L 09/07/21 06:00 MCV 97 fl (79-97) 09/07/21 06:00 MCH 33 pg (28-32) H 09/07/21 06:00 MCHC 34 % (30-34) 09/07/21 06:00 RDW 15.2 % (13.2-15.2) 09/07/21 06:00 Plt Count 394 K/mm3 (140-440) 09/07/21 06:00 Lymph % (Auto) 30.6 % (13.4-35.0) 09/07/21 06:00 [place] % (Auto) 4.5 % (0.0-7.3) 09/07/21 06:00 Eos % (Auto) 5.7 % (0.0-4.3) H 09/07/21 06:00 Baso % (Auto) 1.3 % (0.0-1.8) 09/07/21 06:00 Lymph # (Auto) 2.9 K/mm3 (1.2-5.4) 09/07/21 06:00 [place] # (Auto) 0.4 K/mm3 (0.0-0.8) 09/07/21 06:00 Eos # (Auto) 0.5 K/mm3 (0.0-0.4) H 09/07/21 06:00 Baso # (Auto) 0.1 K/mm3 (0.0-0.1) 09/07/21 06:00 Add Manual Diff Complete 08/30/21 03:22 Total Counted 100 08/30/21 03:22 Seg Neutrophils % 57.9 % (40.0-70.0) 09/07/21 06:00 Seg Neuts % (Manual) 87.0 % (40.0-70.0) H 08/30/21 03:22 Band Neutrophils % 0 % 08/30/21 03:22 Lymphocytes % (Manual) 10.0 % (13.4-35.0) L 08/30/21 03:22 Reactive Lymphs % (Man) 0 % 08/30/21 03:22 Monocytes % (Manual) 3.0 % (0.0-7.3) 08/30/21 03:22 Eosinophils % (Manual) 0 % (0.0-4.3) 08/30/21 03:22 Basophils % (Manual) 0 % (0.0-1.8) 08/30/21 03:22 Metamyelocytes % 0 % 08/30/21 03:22 Myelocytes % 0 % 08/30/21 03:22 Promyelocytes % 0 % 08/30/21 03:22 Blast Cells % 0 % 08/30/21 03:22 Nucleated RBC % Not Reportable 08/30/21 03:22 Seg Neutrophils # 5.5 K/mm3 (1.8-7.7) 09/07/21 06:00 Seg Neutrophils # Man 17.7 K/mm3 (1.8-7.7) H 08/30/21 03:22 Band Neutrophils # 0.0 K/mm3 08/30/21 03:22 Lymphocytes # (Manual) 2.0 K/mm3 (1.2-5.4) 08/30/21 03:22 Abs React Lymphs (Man) 0.0 K/mm3 08/30/21 03:22 Monocytes # (Manual) 0.6 K/mm3 (0.0-0.8) 08/30/21 03:22 Eosinophils # (Manual) 0.0 K/mm3 (0.0-0.4) 08/30/21 03:22 Basophils # (Manual) 0.0 K/mm3 (0.0-0.1) 08/30/21 03:22 Metamyelocytes # 0.0 K/mm3 08/30/21 03:22 Myelocytes # 0.0 K/mm3 08/30/21 03:22 Promyelocytes # 0.0 K/mm3 08/30/21 03:22 Blast Cells # 0.0 K/mm3 08/30/21 03:22 WBC Morphology Not Reportable 08/30/21 03:22 Hypersegmented Neuts Not Reportable 08/30/21 03:22 Hyposegmented Neuts Not Reportable 08/30/21 03:22 Hypogranular Neuts Not Reportable 08/30/21 03:22 Smudge Cells Not Reportable 08/30/21 03:22 Toxic Granulation Not Reportable 08/30/21 03:22 Toxic Vacuolation Not Reportable 08/30/21 03:22 Dohle Bodies Not Reportable 08/30/21 03:22 Pelger-Huet Anomaly Not Reportable 08/30/21 03:22 Erik Rods Not Reportable 08/30/21 03:22 Platelet Estimate Consistent w auto 08/30/21 03:22 Clumped Platelets Not Reportable 08/30/21 03:22 Plt Clumps, EDTA Not Reportable 08/30/21 03:22 Large Platelets Not Reportable 08/30/21 03:22 Giant Platelets Not Reportable 08/30/21 03:22 Platelet Satelliting Not Reportable 08/30/21 03:22 Plt Morphology Comment Not Reportable 08/30/21 03:22 RBC Morphology Normal 08/30/21 03:22 Dimorphic RBCs Not Reportable 08/30/21 03:22 Polychromasia Not Reportable 08/30/21 03:22 Hypochromasia Not Reportable 08/30/21 03:22 Poikilocytosis Not Reportable 08/30/21 03:22 Anisocytosis Not Reportable 08/30/21 03:22 Microcytosis Not Reportable 08/30/21 03:22 Macrocytosis Not Reportable 08/30/21 03:22 Spherocytes Not Reportable 08/30/21 03:22 Pappenheimer Bodies Not Reportable 08/30/21 03:22 Sickle Cells Not Reportable 08/30/21 03:22 Target Cells Not Reportable 08/30/21 03:22 Tear Drop Cells Not Reportable 08/30/21 03:22 Ovalocytes Not Reportable 08/30/21 03:22 Helmet Cells Not Reportable 08/30/21 03:22 [place] Bodies Not Reportable 08/30/21 03:22 [place] Rings Not Reportable 08/30/21 03:22 [place] Cells Not Reportable 08/30/21 03:22 Bite Cells Not Reportable 08/30/21 03:22 Crenated Cell Not Reportable 08/30/21 03:22 Elliptocytes Not Reportable 08/30/21 03:22 Acanthocytes (Spur) Not Reportable 08/30/21 03:22 Rouleaux Not Reportable 08/30/21 03:22 Hemoglobin C Crystals Not Reportable 08/30/21 03:22 Schistocytes Not Reportable 08/30/21 03:22 Malaria parasites Not Reportable 08/30/21 03:22 Marco Bodies Not Reportable 08/30/21 03:22 Hem Pathologist Commnt No 08/30/21 03:22 PT 12.8 Sec. (12.2-14.9) 08/19/21 02:24 INR 0.87 (0.87-1.13) 08/19/21 02:24 APTT 20.0 Sec. (24.2-36.6) L 08/19/21 02:24 ABG pH 7.516 pH Units (7.350-7.450) H 08/27/21 03:56 POC ABG pCO2 30.1 mmHg (32.0-48.0) L 08/22/21 10:16 ABG pCO2 34.4 mm Hg 08/27/21 03:56 POC ABG pO2 109.5 mmHg (83-108) H 08/22/21 10:16 ABG pO2 117.0 mm Hg (80.0-90.0) H 08/27/21 03:56 POC ABG HCO3 23.5 08/22/21 10:16 ABG HCO3 27.2 mmol/L (20.0-26.0) H 08/27/21 03:56 ABG O2 Saturation 98.4 % (95.0-99.0) 08/27/21 03:56 ABG O2 Content 15.3 (0.0-44) 08/27/21 03:56 POC ABG Base Excess 1.2 08/22/21 10:16 ABG Base Excess 4.3 mmol/L (-2.0-3.0) H 08/27/21 03:56 ABG Hemoglobin 11.1 gm/dl (12.0-16.0) L 08/27/21 03:56 ABG Oxyhemoglobin 96.8 (94-98) 08/22/21 10:16 ABG Carboxyhemoglobin 1.0 % (0.0-5.0) 08/27/21 03:56 ABG Methemoglobin 0.5 % (0.0-1.5) 08/27/21 03:56 ABG Sodium Not Reportable 08/22/21 10:16 ABG Potassium Not Reportable 08/22/21 10:16 ABG Chloride Not Reportable 08/22/21 10:16 ABG Glucose Not Reportable 08/22/21 10:16 Oxyhemoglobin 96.9 % (95.0-99.0) 08/27/21 03:56 Carboxyhemoglobin 1.1 (0.5-1.5) 08/22/21 10:16 FiO2 40 % 08/27/21 03:56 FiO2 % 30.0 08/22/21 10:16 Sodium 136 mmol/L (137-145) L 09/07/21 06:00 Potassium 3.9 mmol/L (3.6-5.0) 09/07/21 06:00 Chloride 98.0 mmol/L (98-107) 09/07/21 06:00 Carbon Dioxide 28 mmol/L (22-30) D 09/07/21 06:00 Anion Gap 14 mmol/L 09/07/21 06:00 BUN 11 mg/dL (7-17) 09/07/21 06:00 Creatinine 0.6 mg/dL (0.6-1.2) 09/07/21 06:00 Estimated GFR > 60 ml/min 09/07/21 06:00 BUN/Creatinine Ratio 18 % 09/07/21 06:00 Glucose 111 mg/dL (65-100) H 09/07/21 06:00 POC Glucose 113 mg/dL (70-105) H 09/07/21 16:13 Calcium 10.3 mg/dL (8.4-10.2) H 09/07/21 06:00 Phosphorus 3.30 mg/dL (2.5-4.5) D 09/06/21 04:00 Magnesium 2.00 mg/dL (1.7-2.3) 09/06/21 04:00 Total Bilirubin 0.30 mg/dL (0.1-1.2) 09/04/21 04:15 AST 19 units/L (5-40) 09/04/21 04:15 ALT 16 units/L (7-56) 09/04/21 04:15 Alkaline Phosphatase 102 units/L (35-129) 09/04/21 04:15 C-Reactive Protein 29.40 mg/dL (0.00-1.30) H 09/02/21 04:08 Total Protein 6.6 g/dL (6.3-8.2) 09/04/21 04:15 Albumin 2.4 g/dL (3.9-5) L 09/04/21 04:15 Albumin/Globulin Ratio 0.6 % 09/04/21 04:15 Triglycerides 200 mg/dL (2-149) H 08/27/21 04:25 Procalcitonin 1.34 ng/mL (<0.15) 09/02/21 04:08 Arterial Blood Glucose Not Reportable 08/22/21 10:16 Nasal Screen MRSA (PCR) Negative (Negative) 09/01/21 12:15 Blood Type A POSITIVE 08/21/21 15:10 Lewis/IV: Voiding Method Indwelling Catheter Active Medications - Current Medications Current Medications: Generic Name Dose Route Start Last Admin Trade Name Freq PRN Reason Stop Dose Admin Acetaminophen 650 mg 08/19/21 06:00 09/02/21 14:20 Acetaminophen 325 Mg Tab FEEDTUBE 650 mg Q4H PRN Administration Fever >100.5/SAEED/MILD PAIN 1-3 Albuterol 2.5 mg 08/19/21 04:50 Albuterol 2.5 Mg/3 Ml Nebu IH Q3HRT PRN Shortness Of Breath Atorvastatin Calcium 10 mg 09/05/21 22:00 09/06/21 22:14 Atorvastatin 10 Mg Tab FEEDTUBE 10 mg QHS WARD Administration Buspirone HCl 10 mg 09/05/21 10:00 09/07/21 10:03 Buspirone 10 Mg Tab FEEDTUBE 10 mg BID WARD Administration Dextrose 50 ml 08/20/21 10:00 09/03/21 12:34 Dextrose 50% In Water (25gm) 50 Ml Syringe IV 15 ml Q30MIN PRN Administration Hypoglycemia Protocol Diphenhydramine HCl 25 mg 09/07/21 15:00 Diphenhydramine 25 Mg Cap PO Q8H PRN Itching Folic Acid 1 mg 09/05/21 10:00 09/07/21 10:03 Folic Acid 1 Mg Tab FEEDTUBE 1 mg QDAY WARD Administration Haloperidol Lactate 5 mg 08/29/21 09:58 09/03/21 17:39 Haloperidol Lactate 5 Mg/1 Ml Inj IV 5 mg Q6H PRN Administration Agitation Heparin Sodium (Porcine) 5,000 unit 08/19/21 10:00 09/07/21 10:03 Heparin 5,000 Unit/1 Ml Vial SUB-Q 5,000 unit Q12HR WARD Administration Hydralazine HCl 10 mg 08/19/21 05:03 08/24/21 18:09 Hydralazine 20 Mg/1 Ml Inj IV 10 mg Q6H PRN Administration SBP >/=160; DBP >/=100 Fluconazole 200 mg in 100 mls @ 100 mls/hr 09/01/21 20:00 09/06/21 20:50 Diflucan IV 09/14/21 20:59 100 mls/hr Q24H WARD Administration Protocol Insulin Human Regular 0 units 08/20/21 12:00 09/07/21 12:23 Insulin Regular, Human 100 Units/1 Ml SUB-Q Not Given Q6H WARD Protocol Levothyroxine Sodium 150 mcg 09/07/21 12:00 09/07/21 13:26 Levothyroxine 150 Mcg Tab FEEDTUBE 150 mcg DAILY@0600 WARD Administration Lorazepam 0.25 mg 09/05/21 14:41 09/07/21 13:27 Lorazepam 0.5 Mg Tab FEEDTUBE 0.25 mg BID PRN Administration Agitation Mineral Oil 133 ml 09/05/21 08:49 Mineral Oil Enema 133 Ml MI QDAY PRN Constipation Ondansetron HCl 4 mg 08/19/21 04:50 Ondansetron 4 Mg/2 Ml Inj IV Q8H PRN Nausea And Vomiting Senna 8.8 mg 09/05/21 22:00 09/06/21 22:15 Sennosides Oral Liqd 8.8 Mg/5 Ml Oral Liqd FEEDTUBE 8.8 mg QHS WARD Administration Sodium Chloride 10 ml 08/19/21 10:00 09/07/21 10:04 Sodium Chloride 0.9% 10 Ml Flush Syringe IV 10 ml BID WARD Administration Sodium Chloride 10 ml 08/19/21 04:50 Sodium Chloride 0.9% 10 Ml Flush Syringe IV PRN PRN LINE FLUSH Sucralfate 1 gm 09/05/21 12:00 09/07/21 13:26 Sucralfate 1 Gm/10 Ml Oral Liqd FEEDTUBE 1 gm Q6HR WARD Administration Thiamine HCl 100 mg 09/05/21 10:00 09/07/21 10:04 Thiamine 100 Mg Tab FEEDTUBE 100 mg QDAY WARD Administration Tramadol HCl 50 mg 09/05/21 14:42 09/07/21 13:27 Tramadol 50 Mg Tab FEEDTUBE 50 mg Q4H PRN Administration Pain, Moderate (4-6) Nutrition/Malnutrition Assess - Dietary Evaluation Nutrition/Malnutrition Findings: Nutrition Notes Start: 08/19/21 10:13 Freq: Status: Active Protocol: Document 09/06/21 14:58 ABRAHAM (Rec: 09/06/21 15:18 ABRAHAM [id number]) Nutrition Notes Initial or Follow up Brief Note Current Diagnosis Hypertension,Respiratory Failure Other Pertinent Diagnosis s/p PEG Placement,Angioedema, Urinary Retention, Hypothyroidism, Depression Current Diet TF-Glucerna 1.2 Dieud[place] @ 45 ml/hr (since 09/05). Height 4 ft 11 in Weight 74 kg [place] Body Weight (kg) 43.18 BMI 32.9 Weight change and time frame No body weight change reported in 12 days. Weight Status Obese Subjective/Other Information RD consult for routine F/U on resumed TF and tolerance. TF resumed on 09/05 and continues as prescribed, well tolerated, according to Progress notes. Pt on Trach-Tube, O2 saturation @ 98%, according to Physical Assessmet History notes. Pt has produced multiple BM, according to Progress notes. Pt to be discharged to SNF, awaiting placemernt, according to Progress notes. Percent of energy/protein needs met: Prescribed TF-Glucerna 1.2 Dieud[place] @ 45 ml/hr provides for energy/protein needs (1,269 Kcal/65 g) during LOS, 94% Kcal; 70% AA. #1 Nutrition Diagnosis Inadequate oral intake Diagnosis Progress(for reassessment Continues documentation) Is patient on ventilator? Yes Is Patient Ambulatory and/or Out of Bed No REE-([place] [facility]-confined to bed) 1375.068 Kcal/Kg value to use for calculation 17 Approximate Energy Requirements Using 1258 kcal/Kg Calculation Used for Recommendations Kcal/kg Additional Notes Protein: 2 g/Kg IBW; 86 g/day. Fluids: 1 ml/Kcal, or as per MD. Nutrition Intervention Nutrition Support: Continue TF-Glucerna 1.2 [place] @ 45 ml/hr. Flush: 70 ml water Q 4 hr, or as per MD. Kcal 1,269 Protein (gm) 65 Carbohydrates (gm) 124 Fat (gm) 65 Fluid (mL) 869 Fiber (gm) 17 % RDI: 94% Kcal; 70% AA. Goal #1 Provide at least 75% of energy /protein needs through Enteral Feeding during LOS. Goal #2 Maintain body weight within +/ -3% of admission body weight during LOS. Follow-Up By: 09/13/21 Additional Comments Continue monitoring, Ventilation status, TF tolerance and BM.
[2021-09-05] MEDS: SUCRALFATE 1 GM/10 ML ORAL LIQD FEEDTUBE SCH ×2 (12:25→17:53)
[2021-09-05] MEDS: traMADol 50 MG TAB FEEDTUBE PRN (14:53)
[2021-09-05] MEDS: LORazepam 0.5 MG TAB FEEDTUBE PRN (14:53)
[2021-09-05] MEDS: FLUCONAZOLE 200 MG 200 MG/100 ML BAG IV SCH (20:10)
[2021-09-05] MEDS: SENNOSIDES ORAL LIQD 8.8 MG/5 ML ORAL LIQD FEEDTUBE SCH (21:57)
[2021-09-06] MEDS: INSULIN REGULAR, HUMAN 100 UNITS/1 ML SUB-Q SCH ×4 (00:31→17:11)
[2021-09-06] MEDS: SUCRALFATE 1 GM/10 ML ORAL LIQD FEEDTUBE SCH ×4 (00:32→17:16)
[2021-09-06] MEDS: LORazepam 0.5 MG TAB FEEDTUBE PRN ×2 (03:12→22:35)
[2021-09-06 05:38] LABS: Hematocrit 28.6 % (30.3-42.9); Hemoglobin 9.4 gm/dl (10.1-14.3); Mean Corpuscular HGB Conc 33 % (30-34); Mean Corpuscular Volume 98 fl (79-97); Platelet Count 349 K/mm3 (140-440); Red Blood Count 2.93 M/mm3 (3.65-5.03); Red Cell Distribution Width 15.3 % (13.2-15.2)
[2021-09-06 06:03] LABS: Blood Urea Nitrogen 8 mg/dL (7-17); Calcium 9.3 mg/dL (8.4-10.2); Hemolysis Index 26
[2021-09-06 06:05] LABS: BUN/Creatinine Ratio 16
[2021-09-06] MEDS: traMADol 50 MG TAB FEEDTUBE PRN ×3 (06:22→22:34)
[2021-09-06] MEDS: FOLIC ACID 1 MG TAB FEEDTUBE SCH (09:09)
[2021-09-06] MEDS: HEPARIN 5,000 UNIT/1 ML VIAL SUB-Q SCH ×2 (09:10→22:15)
[2021-09-06] MEDS: THIAMINE 100 MG TAB FEEDTUBE SCH (09:10)
[2021-09-06] MEDS: busPIRone 10 MG TAB FEEDTUBE SCH ×2 (09:15→22:14)
--- NOTE | 2021-09-06 09:18 | Progress Note ---
Assessment and Plan Pt with angioedema.Patient status post laparoscopic exploration on 09/01/2021 for a large erosion in the anterior stomach from a PEG tube. Gastrostomy feeding tube revision done laparoscopically. Large erosion is closed with a stapler. Nursing noted increased discharge around new g tube. Feedings were held and tube placed on suction. Dr. Young subsequently discovered balloon was not inflated. After inflation the balloon no further reports of drainage around the G-tube site. Subjective Date of service: 09/06/21 Patient Reports: Positive: no new complaints, feels better, tolerating liquids well Objective Vital Signs - 12hr 09/05/21 09/05/21 09/06/21 21:55 22:00 00:00 Temperature 98.3 F Pulse Rate 75 75 80 Respiratory 20 Rate Blood Pressure Blood Pressure 128/74 [Left] O2 Sat by Pulse 100 98 Oximetry 09/06/21 09/06/21 09/06/21 00:02 00:16 03:29 Temperature 98.5 F Pulse Rate 73 81 Respiratory 20 Rate Blood Pressure 134/83 Blood Pressure [Left] O2 Sat by Pulse 97 98 Oximetry 09/06/21 09/06/21 09/06/21 05:44 08:00 08:52 Temperature 98.8 F 98.9 F Pulse Rate 79 78 84 Respiratory 20 18 Rate Blood Pressure 137/82 119/81 Blood Pressure [Left] O2 Sat by Pulse 98 99 Oximetry - Labs 09/06/21 04:00 09/06/21 04:00 Diabetes panel 09/06/21 Range/Units 04:00 Sodium 135 L (137-145) mmol/L Potassium 4.2 (3.6-5.0) mmol/L Chloride 103.4 (98-107) mmol/L Carbon Dioxide 19 L (22-30) mmol/L BUN 8 (7-17) mg/dL Creatinine 0.5 L (0.6-1.2) mg/dL Glucose 110 H (65-100) mg/dL Calcium 9.3 (8.4-10.2) mg/dL Calcium panel 09/06/21 Range/Units 04:00 Calcium 9.3 (8.4-10.2) mg/dL Phosphorus 3.30 D (2.5-4.5) mg/dL Pituitary panel 09/06/21 Range/Units 04:00 Sodium 135 L (137-145) mmol/L Potassium 4.2 (3.6-5.0) mmol/L Chloride 103.4 (98-107) mmol/L Carbon Dioxide 19 L (22-30) mmol/L BUN 8 (7-17) mg/dL Creatinine 0.5 L (0.6-1.2) mg/dL Glucose 110 H (65-100) mg/dL Calcium 9.3 (8.4-10.2) mg/dL Adrenal panel 09/06/21 Range/Units 04:00 Sodium 135 L (137-145) mmol/L Potassium 4.2 (3.6-5.0) mmol/L Chloride 103.4 (98-107) mmol/L Carbon Dioxide 19 L (22-30) mmol/L BUN 8 (7-17) mg/dL Creatinine 0.5 L (0.6-1.2) mg/dL Glucose 110 H (65-100) mg/dL Calcium 9.3 (8.4-10.2) mg/dL
--- NOTE | 2021-09-06 11:01 | Progress Note ---
Assessment and Plan Cultures: 08/29/2021 blood culture: No growth 08/29/2021 tracheal aspirate culture: Usual respiratory david 09/01/2021 blood culture: In process 09/01/2021 tracheal aspirate culture: Usual respiratory david 09/02/2021 CRP 29.4 Procalcitonin 1.34 MRSA nasal PCR: Negative A/P: 76-year-old female with depression, hypothyroidism, HTN was admitted on 08/19/2021 with angioedema reportedly due to amlodipine. She was seen in the ER, intubated. She was extubated on 08/25/2021, developed stridor, was reintubated on 08/26/2021 and subsequently underwent tracheostomy and PEG tube placement: #Sepsis/SIRS, secondary to right lower lobe pneumonia, dislodged PEG tube: minimal pneumonia. Had removal of PEG tube, laparoscopic exploration, lysis of adhesions, staple closure of gastrostomy site on 09/01/2021. Also noted was possible esophageal candidiasis. #Angioedema #Acute respiratory failure: trach #Penicillin allergy Recs: -Continue levofloxacin x 5 days total -Continue fluconazole for presumed esophageal candidiasis, D5 of 14 G. Anitha Cedillo MD [facility] O: [phone] F: [phone] Subjective Date of service: 09/06/21 Interval history: Afebrile, normal white count. Now on the floor. All cultures negative. Objective - Exam Narrative Exam: Physical Exam: Constitutional: Awake trached, Head, Ears, Nose: Normocephalic, atraumatic. External ears, nose normal Eyes: Conjunctivae/corneas clear. No icterus. No ptosis. Neck: Trach + Cardiovascular: S1, S2 + Respiratory: AE fair bilaterally GI: Soft, dressing + Musculoskeletal: No pedal edema, no cyanosis. Skin: No rash or abscess Hem/Lymphatic: No palpable cervical or supraclavicular nodes. No lymphangitis Psych: no agitation Neurological: trach, exam limited - Constitutional Vitals: Vital Signs Temp Pulse Resp BP Pulse Ox 98.9 F 84 18 119/81 99 09/06/21 08:52 09/06/21 08:52 09/06/21 08:52 09/06/21 08:52 09/06/21 08:52 Temperature -Last 24 Hours Temperature 98.9 F Temperature 98.8 F Temperature 98.5 F Temperature 98.3 F Temperature 99.1 F Temperature 98.9 F Temperature 99.8 F - Labs CBC & Chem 7: 09/06/21 04:00 09/06/21 04:00 Labs: Abnormal lab results 09/05/21 09/06/21 09/06/21 Range/Units 23:59 04:00 04:00 RBC 2.93 L (3.65-5.03) M/mm3 Hgb 9.4 L (10.1-14.3) gm/dl Hct 28.6 L (30.3-42.9) % MCV 98 H (79-97) fl RDW 15.3 H (13.2-15.2) % Sodium 135 L (137-145) mmol/L Carbon Dioxide 19 L (22-30) mmol/L Creatinine 0.5 L (0.6-1.2) mg/dL Glucose 110 H (65-100) mg/dL POC Glucose 107 H (70-105) mg/dL 09/06/21 Range/Units 05:38 RBC (3.65-5.03) M/mm3 Hgb (10.1-14.3) gm/dl Hct (30.3-42.9) % MCV (79-97) fl RDW (13.2-15.2) % Sodium (137-145) mmol/L Carbon Dioxide (22-30) mmol/L Creatinine (0.6-1.2) mg/dL Glucose (65-100) mg/dL POC Glucose 119 H (70-105) mg/dL
[2021-09-06] MEDS: MULTIVITAMIN / MINERAL ORAL LIQUID 15 ML PO SCH (12:45)
--- NOTE | 2021-09-06 14:19 | Progress Note ---
Assessment and Plan 76 y/o female with acute respiratory failure secondary to angioedema 09/06/21: Continue T-piece. Continue feeds. 09/05/21: Feeding patient and tolerating. No TPN needed right now. Change meds back to PO. Stable for transfer to floor. 09/04/21: Will ask surgery how they feel about possibly downsizing trach to a 6 cuffed. patient not intubated for lung reasons, all upper airway issues. If so then could have speech assess with PMV and possible swallow eval. If tolerated 6 and 4 is need could go to that faster and then have speech see again. Goal of this is to have her on TPN for as little time as possible. Follow up surgery recs after they see patient today. Guarded prognosis. 09/03/21: Enema today. Await surgery eval and recs. Continue T-piece and only rest on PSV if absolutely needed. Abx per ID 09/02/21: Resume feeding today. Tolerating PSV trial, if continues will attempt T-piece tomorrow. Restart Heparin. Guarded prognosis. Back on Diflucan 09/01/21: Hold on any weaning today. Hold heparin for 24 hours. Surgery spoke with IR, they will attempt to replace peg tube. Changed as many meds to IV as p ossible. ID has now been consulted so will defer all abx therapy to them. Guarded prognosis, family not at bedside this am. 08/31/21: Dropped PSV to 10/6, if tolerates then in a few hours place on T- piece. Rest on PSV tonight. Then 24 hours of T-piece tomorrow. Most likely transfer out of unit on . Will discuss urine situation with nursing staff. Voided and has had no issues so will not place lewis. Spiked a temp. Repeat cultures with next temperature spike and will start on Diflucan empirically for oral candidiasis. 08/30/21: Start bladder training q4 hours. All cultures negative thus far and no further temps. Given Mag Citrate today, if no BM in the next 24, will start some scheduled lactulose. Continue PSV as tolerated. 08/29/21: Agree with hernandez culture, hold on abx, remove lewis. Repeat CXR. Per nursing has not had bowel movement in at least 4 days. Check KUB. PSV trials to start soon 08/28/21: would like to get patient off of continuous sedation so will scheduled tramadol therapy with hopes of weaning Fent Drip. Will order fent 50Q2 PRN pain to help with this as well. Will likely need to be placed on bowel regimen to prevent constipation. Once off continuous drips, can start PSV trials. 08/27/21: Start using peg. Continue PRN fent pushes and will add PRN tramadol as well. Wean sedation off. Can start PSV trials as early as tomorrow. 1. Agree with IV steroids 2. Suggest adding scheduled benadryl and pepcid 3. If swelling does not improve in the next 24-48 hours, suggest a trial of FFP 4. Wean FiO2 for sats > 88% CCT 31 minutes Subjective Date of service: 09/06/21 Interval history: No acute events. Successful transfer to the floor. Objective Vital Signs - 12hr 09/06/21 09/06/21 09/06/21 03:29 05:44 08:00 Temperature 98.8 F Pulse Rate 81 79 78 Respiratory 20 Rate Blood Pressure 137/82 O2 Sat by Pulse 98 98 Oximetry O2 Sat by Pulse Oximetry [ Assessment] 09/06/21 09/06/21 09/06/21 08:44 08:52 12:00 Temperature 98.9 F Pulse Rate 84 81 Respiratory 18 Rate Blood Pressure 119/81 O2 Sat by Pulse 99 98 Oximetry O2 Sat by Pulse 98 Oximetry [ Assessment] 09/06/21 12:03 Temperature 99.0 F Pulse Rate 80 Respiratory 18 Rate Blood Pressure 144/88 O2 Sat by Pulse 99 Oximetry O2 Sat by Pulse Oximetry [ Assessment] Constitutional: no acute distress, other (Sedated) ENT: other (orally intubated, macroglossia) Neck: supple, no lymphadenopathy Effort: other (Supported on ventilator) Ascultation: Bilateral: clear Percussion: Bilateral: not dull Cardiovascular: regular rate and rhythm Gastrointestinal: normoactive bowel sounds Extremities: no cyanosis, no edema, pink and warm Neurologic: other (Sedated) Psychiatric: other (Sedated) CBC and BMP: 09/06/21 04:00 09/06/21 04:00 ABG, PT/INR, D-dimer: ABG ABG pH 7.516 pH Units (7.350-7.450) H 08/27/21 03:56 POC ABG pCO2 30.1 mmHg (32.0-48.0) L 08/22/21 10:16 ABG pCO2 34.4 mm Hg 08/27/21 03:56 POC ABG pO2 109.5 mmHg (83-108) H 08/22/21 10:16 ABG pO2 117.0 mm Hg (80.0-90.0) H 08/27/21 03:56 POC ABG HCO3 23.5 08/22/21 10:16 ABG O2 Saturation 98.4 % (95.0-99.0) 08/27/21 03:56 PT/INR, D-dimer PT 12.8 Sec. (12.2-14.9) 08/19/21 02:24 INR 0.87 (0.87-1.13) 08/19/21 02:24 Abnormal lab findings: Abnormal Labs 08/19/21 08/19/21 08/19/21 02:24 02:24 02:24 WBC 13.9 H RBC Hgb Hct MCV 98 H MCH 33 H RDW 15.7 H Seg Neuts % (Manual) Lymphocytes % (Manual) 52.0 H Seg Neutrophils # Man Lymphocytes # (Manual) 7.2 H APTT 20.0 L ABG pH POC ABG pCO2 POC ABG pO2 ABG pO2 ABG HCO3 ABG O2 Saturation ABG Base Excess ABG Hemoglobin Oxyhemoglobin Sodium Potassium 3.3 L Chloride Carbon Dioxide 20 L BUN Creatinine Glucose 143 H POC Glucose Calcium Phosphorus Magnesium C-Reactive Protein Total Protein 8.3 H Albumin Triglycerides 08/19/21 08/19/21 08/19/21 06:15 10:20 11:10 WBC RBC Hgb Hct MCV MCH RDW Seg Neuts % (Manual) Lymphocytes % (Manual) Seg Neutrophils # Man Lymphocytes # (Manual) APTT ABG pH 7.465 H 7.503 H POC ABG pCO2 POC ABG pO2 ABG pO2 177.7 H 90.5 H ABG HCO3 ABG O2 Saturation 99.2 H ABG Base Excess ABG Hemoglobin Oxyhemoglobin Sodium Potassium Chloride Carbon Dioxide BUN Creatinine Glucose POC Glucose 171 H Calcium Phosphorus Magnesium C-Reactive Protein Total Protein Albumin Triglycerides 08/19/21 08/20/21 08/20/21 16:33 00:03 04:25 WBC RBC Hgb Hct MCV 98 H MCH 33 H RDW 15.9 H Seg Neuts % (Manual) 83.0 H Lymphocytes % (Manual) Seg Neutrophils # Man Lymphocytes # (Manual) APTT ABG pH POC ABG pCO2 POC ABG pO2 ABG pO2 ABG HCO3 ABG O2 Saturation ABG Base Excess ABG Hemoglobin Oxyhemoglobin Sodium Potassium Chloride Carbon Dioxide BUN Creatinine Glucose POC Glucose 179 H 133 H Calcium Phosphorus Magnesium C-Reactive Protein Total Protein Albumin Triglycerides 08/20/21 08/20/21 08/20/21 04:25 04:30 05:39 WBC RBC Hgb Hct MCV MCH RDW Seg Neuts % (Manual) Lymphocytes % (Manual) Seg Neutrophils # Man Lymphocytes # (Manual) APTT ABG pH POC ABG pCO2 POC ABG pO2 ABG pO2 95.5 H ABG HCO3 ABG O2 Saturation ABG Base Excess -2.2 L ABG Hemoglobin Oxyhemoglobin Sodium Potassium Chloride Carbon Dioxide 21 L BUN Creatinine Glucose 143 H POC Glucose 168 H Calcium 8.2 L Phosphorus Magnesium C-Reactive Protein Total Protein Albumin Triglycerides 08/20/21 08/20/21 08/21/21 12:04 16:38 00:12 WBC RBC Hgb Hct MCV MCH RDW Seg Neuts % (Manual) Lymphocytes % (Manual) Seg Neutrophils # Man Lymphocytes # (Manual) APTT ABG pH POC ABG pCO2 POC ABG pO2 ABG pO2 ABG HCO3 ABG O2 Saturation ABG Base Excess ABG Hemoglobin Oxyhemoglobin Sodium Potassium Chloride Carbon Dioxide BUN Creatinine Glucose POC Glucose 151 H 135 H 123 H Calcium Phosphorus Magnesium C-Reactive Protein Total Protein Albumin Triglycerides 08/21/21 08/21/21 08/21/21 04:58 04:58 04:59 WBC RBC 3.64 L Hgb Hct MCV 100 H MCH RDW 16.4 H Seg Neuts % (Manual) Lymphocytes % (Manual) Seg Neutrophils # Man Lymphocytes # (Manual) APTT ABG pH POC ABG pCO2 POC ABG pO2 ABG pO2 ABG HCO3 ABG O2 Saturation ABG Base Excess -2.6 L ABG Hemoglobin 11.6 L Oxyhemoglobin Sodium Potassium 3.5 L Chloride 109.5 H Carbon Dioxide 19 L BUN Creatinine Glucose 159 H POC Glucose Calcium 8.3 L Phosphorus Magnesium C-Reactive Protein Total Protein Albumin Triglycerides 08/21/21 08/21/21 08/21/21 05:22 11:21 16:29 WBC RBC Hgb Hct MCV MCH RDW Seg Neuts % (Manual) Lymphocytes % (Manual) Seg Neutrophils # Man Lymphocytes # (Manual) APTT ABG pH POC ABG pCO2 POC ABG pO2 ABG pO2 ABG HCO3 ABG O2 Saturation ABG Base Excess ABG Hemoglobin Oxyhemoglobin Sodium Potassium Chloride Carbon Dioxide BUN Creatinine Glucose POC Glucose 143 H 133 H 122 H Calcium Phosphorus Magnesium C-Reactive Protein Total Protein Albumin Triglycerides 08/22/21 08/22/21 08/22/21 00:03 03:54 03:54 WBC RBC 3.53 L Hgb Hct MCV 100 H MCH 33 H RDW 16.7 H Seg Neuts % (Manual) Lymphocytes % (Manual) Seg Neutrophils # Man Lymphocytes # (Manual) APTT ABG pH POC ABG pCO2 POC ABG pO2 ABG pO2 ABG HCO3 ABG O2 Saturation ABG Base Excess ABG Hemoglobin Oxyhemoglobin Sodium Potassium Chloride 107.5 H Carbon Dioxide BUN Creatinine Glucose 123 H POC Glucose 132 H Calcium Phosphorus Magnesium C-Reactive Protein Total Protein Albumin Triglycerides 08/22/21 08/22/21 08/22/21 04:40 06:08 10:16 WBC RBC Hgb Hct MCV MCH RDW Seg Neuts % (Manual) Lymphocytes % (Manual) Seg Neutrophils # Man Lymphocytes # (Manual) APTT ABG pH 7.454 H 7.511 H POC ABG pCO2 30.1 L POC ABG pO2 109.5 H ABG pO2 109.8 H ABG HCO3 ABG O2 Saturation ABG Base Excess ABG Hemoglobin Oxyhemoglobin Sodium Potassium Chloride Carbon Dioxide BUN Creatinine Glucose POC Glucose 137 H Calcium Phosphorus Magnesium C-Reactive Protein Total Protein Albumin Triglycerides 08/22/21 08/22/21 08/22/21 10:27 10:27 11:13 WBC RBC Hgb Hct MCV 99 H MCH RDW 16.6 H Seg Neuts % (Manual) Lymphocytes % (Manual) Seg Neutrophils # Man Lymphocytes # (Manual) APTT ABG pH POC ABG pCO2 POC ABG pO2 ABG pO2 ABG HCO3 ABG O2 Saturation ABG Base Excess ABG Hemoglobin Oxyhemoglobin Sodium Potassium Chloride Carbon Dioxide BUN Creatinine Glucose 129 H POC Glucose 125 H Calcium Phosphorus Magnesium C-Reactive Protein Total Protein Albumin Triglycerides 08/22/21 08/23/21 08/23/21 23:39 04:11 04:11 WBC RBC Hgb Hct MCV 98 H MCH 33 H RDW 16.1 H Seg Neuts % (Manual) Lymphocytes % (Manual) Seg Neutrophils # Man Lymphocytes # (Manual) APTT ABG pH POC ABG pCO2 POC ABG pO2 ABG pO2 ABG HCO3 ABG O2 Saturation ABG Base Excess ABG Hemoglobin Oxyhemoglobin Sodium Potassium Chloride Carbon Dioxide BUN Creatinine Glucose 148 H POC Glucose 117 H Calcium Phosphorus Magnesium C-Reactive Protein Total Protein Albumin Triglycerides 08/23/21 08/23/21 08/23/21 05:32 11:02 18:04 WBC RBC Hgb Hct MCV MCH RDW Seg Neuts % (Manual) Lymphocytes % (Manual) Seg Neutrophils # Man Lymphocytes # (Manual) APTT ABG pH POC ABG pCO2 POC ABG pO2 ABG pO2 ABG HCO3 ABG O2 Saturation ABG Base Excess ABG Hemoglobin Oxyhemoglobin Sodium Potassium Chloride Carbon Dioxide BUN Creatinine Glucose POC Glucose 173 H 146 H 129 H Calcium Phosphorus Magnesium C-Reactive Protein Total Protein Albumin Triglycerides 08/24/21 08/24/21 08/24/21 00:27 05:20 06:00 WBC RBC Hgb Hct MCV MCH RDW Seg Neuts % (Manual) Lymphocytes % (Manual) Seg Neutrophils # Man Lymphocytes # (Manual) APTT ABG pH 7.481 H POC ABG pCO2 POC ABG pO2 ABG pO2 95.8 H ABG HCO3 29.8 H ABG O2 Saturation ABG Base Excess 5.8 H ABG Hemoglobin Oxyhemoglobin Sodium Potassium Chloride Carbon Dioxide BUN Creatinine Glucose POC Glucose 146 H 159 H Calcium Phosphorus Magnesium C-Reactive Protein Total Protein Albumin Triglycerides 08/24/21 08/25/21 08/25/21 11:37 05:13 11:38 WBC RBC Hgb Hct MCV MCH RDW Seg Neuts % (Manual) Lymphocytes % (Manual) Seg Neutrophils # Man Lymphocytes # (Manual) APTT ABG pH POC ABG pCO2 POC ABG pO2 ABG pO2 ABG HCO3 ABG O2 Saturation ABG Base Excess ABG Hemoglobin Oxyhemoglobin Sodium Potassium Chloride Carbon Dioxide BUN Creatinine Glucose POC Glucose 154 H 121 H 135 H Calcium Phosphorus Magnesium C-Reactive Protein Total Protein Albumin Triglycerides 08/25/21 08/25/21 08/26/21 16:00 17:12 00:04 WBC RBC Hgb Hct MCV MCH RDW Seg Neuts % (Manual) Lymphocytes % (Manual) Seg Neutrophils # Man Lymphocytes # (Manual) APTT ABG pH POC ABG pCO2 POC ABG pO2 ABG pO2 78.3 L ABG HCO3 32.7 H ABG O2 Saturation ABG Base Excess 6.3 H ABG Hemoglobin 11.0 L Oxyhemoglobin 93.9 L Sodium Potassium Chloride Carbon Dioxide BUN Creatinine Glucose POC Glucose 179 H 140 H Calcium Phosphorus Magnesium C-Reactive Protein Total Protein Albumin Triglycerides 08/26/21 08/26/21 08/26/21 04:22 04:59 04:59 WBC 12.9 H RBC 3.54 L Hgb Hct MCV MCH RDW 15.6 H Seg Neuts % (Manual) Lymphocytes % (Manual) Seg Neutrophils # Man Lymphocytes # (Manual) APTT ABG pH 7.533 H POC ABG pCO2 POC ABG pO2 ABG pO2 76.9 L ABG HCO3 29.2 H ABG O2 Saturation ABG Base Excess 6.4 H ABG Hemoglobin 11.6 L Oxyhemoglobin Sodium Potassium 3.5 L Chloride Carbon Dioxide BUN 28 H Creatinine Glucose 139 H POC Glucose Calcium Phosphorus Magnesium C-Reactive Protein Total Protein Albumin Triglycerides 08/26/21 08/26/21 08/26/21 05:34 11:21 16:52 WBC RBC Hgb Hct MCV MCH RDW Seg Neuts % (Manual) Lymphocytes % (Manual) Seg Neutrophils # Man Lymphocytes # (Manual) APTT ABG pH POC ABG pCO2 POC ABG pO2 ABG pO2 ABG HCO3 ABG O2 Saturation ABG Base Excess ABG Hemoglobin Oxyhemoglobin Sodium Potassium Chloride Carbon Dioxide BUN Creatinine Glucose POC Glucose 152 H 145 H 151 H Calcium Phosphorus Magnesium C-Reactive Protein Total Protein Albumin Triglycerides 08/27/21 08/27/21 08/27/21 03:56 04:25 04:25 WBC 12.4 H RBC 3.39 L Hgb Hct MCV 98 H MCH RDW 15.8 H Seg Neuts % (Manual) Lymphocytes % (Manual) Seg Neutrophils # Man Lymphocytes # (Manual) APTT ABG pH 7.516 H POC ABG pCO2 POC ABG pO2 ABG pO2 117.0 H ABG HCO3 27.2 H ABG O2 Saturation ABG Base Excess 4.3 H ABG Hemoglobin 11.1 L Oxyhemoglobin Sodium Potassium Chloride Carbon Dioxide BUN 27 H Creatinine Glucose POC Glucose Calcium Phosphorus 2.10 L Magnesium 2.50 H C-Reactive Protein Total Protein Albumin Triglycerides 08/27/21 08/27/21 08/27/21 04:25 17:31 23:37 WBC RBC Hgb Hct MCV MCH RDW Seg Neuts % (Manual) Lymphocytes % (Manual) Seg Neutrophils # Man Lymphocytes # (Manual) APTT ABG pH POC ABG pCO2 POC ABG pO2 ABG pO2 ABG HCO3 ABG O2 Saturation ABG Base Excess ABG Hemoglobin Oxyhemoglobin Sodium Potassium Chloride Carbon Dioxide BUN Creatinine Glucose POC Glucose 111 H 122 H Calcium Phosphorus Magnesium C-Reactive Protein Total Protein Albumin Triglycerides 200 H 08/28/21 08/28/21 08/28/21 04:11 04:11 05:01 WBC 17.2 H RBC 3.29 L Hgb Hct MCV 99 H MCH RDW 16.2 H Seg Neuts % (Manual) Lymphocytes % (Manual) Seg Neutrophils # Man Lymphocytes # (Manual) APTT ABG pH POC ABG pCO2 POC ABG pO2 ABG pO2 ABG HCO3 ABG O2 Saturation ABG Base Excess ABG Hemoglobin Oxyhemoglobin Sodium Potassium Chloride 109.2 H Carbon Dioxide BUN 22 H Creatinine Glucose 137 H POC Glucose 133 H Calcium Phosphorus Magnesium C-Reactive Protein Total Protein Albumin Triglycerides 08/28/21 08/28/21 08/29/21 11:18 17:34 00:37 WBC RBC Hgb Hct MCV MCH RDW Seg Neuts % (Manual) Lymphocytes % (Manual) Seg Neutrophils # Man Lymphocytes # (Manual) APTT ABG pH POC ABG pCO2 POC ABG pO2 ABG pO2 ABG HCO3 ABG O2 Saturation ABG Base Excess ABG Hemoglobin Oxyhemoglobin Sodium Potassium Chloride Carbon Dioxide BUN Creatinine Glucose POC Glucose 144 H 131 H 125 H Calcium Phosphorus Magnesium C-Reactive Protein Total Protein Albumin Triglycerides 08/29/21 08/29/21 08/29/21 04:12 04:12 06:17 WBC 22.7 H RBC 3.35 L Hgb Hct MCV 98 H MCH RDW 16.0 H Seg Neuts % (Manual) Lymphocytes % (Manual) Seg Neutrophils # Man Lymphocytes # (Manual) APTT ABG pH POC ABG pCO2 POC ABG pO2 ABG pO2 ABG HCO3 ABG O2 Saturation ABG Base Excess ABG Hemoglobin Oxyhemoglobin Sodium Potassium Chloride Carbon Dioxide BUN 19 H Creatinine Glucose 121 H POC Glucose 117 H Calcium Phosphorus Magnesium C-Reactive Protein Total Protein Albumin Triglycerides 08/29/21 08/29/21 08/30/21 11:54 18:00 00:17 WBC RBC Hgb Hct MCV MCH RDW Seg Neuts % (Manual) Lymphocytes % (Manual) Seg Neutrophils # Man Lymphocytes # (Manual) APTT ABG pH POC ABG pCO2 POC ABG pO2 ABG pO2 ABG HCO3 ABG O2 Saturation ABG Base Excess ABG Hemoglobin Oxyhemoglobin Sodium Potassium Chloride Carbon Dioxide BUN Creatinine Glucose POC Glucose 123 H 117 H 115 H Calcium Phosphorus Magnesium C-Reactive Protein Total Protein Albumin Triglycerides 08/30/21 08/30/21 08/30/21 03:22 03:22 11:05 WBC 20.3 H RBC 3.29 L Hgb Hct MCV MCH RDW 15.6 H Seg Neuts % (Manual) 87.0 H Lymphocytes % (Manual) 10.0 L Seg Neutrophils # Man 17.7 H Lymphocytes # (Manual) APTT ABG pH POC ABG pCO2 POC ABG pO2 ABG pO2 ABG HCO3 ABG O2 Saturation ABG Base Excess ABG Hemoglobin Oxyhemoglobin Sodium Potassium Chloride Carbon Dioxide BUN 21 H Creatinine Glucose 129 H POC Glucose 110 H Calcium Phosphorus Magnesium C-Reactive Protein Total Protein Albumin Triglycerides 08/31/21 08/31/21 08/31/21 00:10 05:26 05:26 WBC 13.2 H RBC 3.28 L Hgb Hct MCV MCH RDW 15.9 H Seg Neuts % (Manual) Lymphocytes % (Manual) Seg Neutrophils # Man Lymphocytes # (Manual) APTT ABG pH POC ABG pCO2 POC ABG pO2 ABG pO2 ABG HCO3 ABG O2 Saturation ABG Base Excess ABG Hemoglobin Oxyhemoglobin Sodium Potassium Chloride Carbon Dioxide BUN 23 H Creatinine Glucose 123 H POC Glucose 138 H Calcium Phosphorus Magnesium C-Reactive Protein Total Protein Albumin Triglycerides 08/31/21 08/31/21 08/31/21 06:13 11:27 17:19 WBC RBC Hgb Hct MCV MCH RDW Seg Neuts % (Manual) Lymphocytes % (Manual) Seg Neutrophils # Man Lymphocytes # (Manual) APTT ABG pH POC ABG pCO2 POC ABG pO2 ABG pO2 ABG HCO3 ABG O2 Saturation ABG Base Excess ABG Hemoglobin Oxyhemoglobin Sodium Potassium Chloride Carbon Dioxide BUN Creatinine Glucose POC Glucose 135 H 149 H 152 H Calcium Phosphorus Magnesium C-Reactive Protein Total Protein Albumin Triglycerides 08/31/21 09/01/21 09/01/21 23:29 05:43 11:05 WBC RBC Hgb Hct MCV MCH RDW Seg Neuts % (Manual) Lymphocytes % (Manual) Seg Neutrophils # Man Lymphocytes # (Manual) APTT ABG pH POC ABG pCO2 POC ABG pO2 ABG pO2 ABG HCO3 ABG O2 Saturation ABG Base Excess ABG Hemoglobin Oxyhemoglobin Sodium Potassium Chloride Carbon Dioxide BUN Creatinine Glucose POC Glucose 121 H 119 H 113 H Calcium Phosphorus Magnesium C-Reactive Protein Total Protein Albumin Triglycerides 09/01/21 09/01/21 09/01/21 11:42 11:42 23:40 WBC 13.0 H RBC 3.38 L Hgb Hct MCV 98 H MCH RDW Seg Neuts % (Manual) Lymphocytes % (Manual) Seg Neutrophils # Man Lymphocytes # (Manual) APTT ABG pH POC ABG pCO2 POC ABG pO2 ABG pO2 ABG HCO3 ABG O2 Saturation ABG Base Excess ABG Hemoglobin Oxyhemoglobin Sodium Potassium Chloride Carbon Dioxide BUN 18 H Creatinine Glucose 111 H POC Glucose 139 H Calcium Phosphorus Magnesium C-Reactive Protein Total Protein Albumin Triglycerides 09/02/21 09/02/21 09/02/21 04:08 04:08 05:31 WBC RBC 3.30 L Hgb Hct MCV 98 H MCH 33 H RDW 15.6 H Seg Neuts % (Manual) Lymphocytes % (Manual) Seg Neutrophils # Man Lymphocytes # (Manual) APTT ABG pH POC ABG pCO2 POC ABG pO2 ABG pO2 ABG HCO3 ABG O2 Saturation ABG Base Excess ABG Hemoglobin Oxyhemoglobin Sodium 132 L Potassium Chloride Carbon Dioxide 20 L BUN Creatinine Glucose 131 H POC Glucose 124 H Calcium Phosphorus Magnesium C-Reactive Protein 29.40 H Total Protein Albumin Triglycerides 09/02/21 09/03/21 09/03/21 17:37 09:09 09:09 WBC 11.9 H RBC 2.99 L Hgb 9.5 L Hct 29.0 L MCV MCH RDW 15.6 H Seg Neuts % (Manual) Lymphocytes % (Manual) Seg Neutrophils # Man Lymphocytes # (Manual) APTT ABG pH POC ABG pCO2 POC ABG pO2 ABG pO2 ABG HCO3 ABG O2 Saturation ABG Base Excess ABG Hemoglobin Oxyhemoglobin Sodium 133 L Potassium Chloride Carbon Dioxide BUN 19 H Creatinine Glucose POC Glucose 108 H Calcium Phosphorus Magnesium C-Reactive Protein Total Protein Albumin Triglycerides 09/03/21 09/04/21 09/04/21 12:00 04:15 05:23 WBC RBC Hgb Hct MCV MCH RDW Seg Neuts % (Manual) Lymphocytes % (Manual) Seg Neutrophils # Man Lymphocytes # (Manual) APTT ABG pH POC ABG pCO2 POC ABG pO2 ABG pO2 ABG HCO3 ABG O2 Saturation ABG Base Excess ABG Hemoglobin Oxyhemoglobin Sodium 132 L Potassium 3.0 L Chloride Carbon Dioxide BUN Creatinine Glucose 113 H POC Glucose 64 L 109 H Calcium Phosphorus Magnesium C-Reactive Protein Total Protein Albumin 2.4 L Triglycerides 09/04/21 09/05/21 09/05/21 11:15 Unknown 23:59 WBC 12.1 H RBC 3.13 L Hgb 9.9 L Hct MCV MCH RDW Seg Neuts % (Manual) Lymphocytes % (Manual) Seg Neutrophils # Man Lymphocytes # (Manual) APTT ABG pH POC ABG pCO2 POC ABG pO2 ABG pO2 ABG HCO3 ABG O2 Saturation ABG Base Excess ABG Hemoglobin Oxyhemoglobin Sodium Potassium Chloride Carbon Dioxide BUN Creatinine Glucose 115 H POC Glucose 107 H Calcium Phosphorus Magnesium C-Reactive Protein Total Protein Albumin Triglycerides 09/06/21 09/06/21 09/06/21 04:00 04:00 05:38 WBC RBC 2.93 L Hgb 9.4 L Hct 28.6 L MCV 98 H MCH RDW 15.3 H Seg Neuts % (Manual) Lymphocytes % (Manual) Seg Neutrophils # Man Lymphocytes # (Manual) APTT ABG pH POC ABG pCO2 POC ABG pO2 ABG pO2 ABG HCO3 ABG O2 Saturation ABG Base Excess ABG Hemoglobin Oxyhemoglobin Sodium 135 L Potassium Chloride Carbon Dioxide 19 L BUN Creatinine 0.5 L Glucose 110 H POC Glucose 119 H Calcium Phosphorus Magnesium C-Reactive Protein Total Protein Albumin Triglycerides 09/06/21 12:04 WBC RBC Hgb Hct MCV MCH RDW Seg Neuts % (Manual) Lymphocytes % (Manual) Seg Neutrophils # Man Lymphocytes # (Manual) APTT ABG pH POC ABG pCO2 POC ABG pO2 ABG pO2 ABG HCO3 ABG O2 Saturation ABG Base Excess ABG Hemoglobin Oxyhemoglobin Sodium Potassium Chloride Carbon Dioxide BUN Creatinine Glucose POC Glucose 112 H Calcium Phosphorus Magnesium C-Reactive Protein Total Protein Albumin Triglycerides
--- NOTE | 2021-09-06 14:57 | Progress Note ---
Assessment and Plan Assessment and plan: Interval history: This is a 76-year-old female with HTN, depression, hypothyroidism who presented to the emergency department on 08/19 via EMS with angioedema reportedly caused by amlodipine however the patient was able to maintain her airway. Per documentation patient was given patient was given 50 mg of IV Benadryl, 0.5 mg epinephrine, 125 mg of IV Solu-Medrol by EMS. At 0235 patient was intubated in the emergency department. Patient was admitted to the hospitalist service with angioedema and mechanical ventilation for airway protection with consults to [facility]. Hospital course to date: 08/19: Patient started on tube feedings, potassium repleted, started on Benadryl and propofol for sedation. SSI started. Air leak present today however due to swelling of the tongue we will hold off extubation. [facility] plans to try FFP in the a.m. if swelling not better. 08/20: Angioedema slightly better so we will hold off FFP today. Updated son at bedside but he did not know what medication she was taking and states that she has not had angioedema in the past. Patient still remains on Versed and propofol. Was given 500 mL bolus overnight for hypotension and will repeat for hypotension. 08/21: Leak test today at bedside with RT shows no leak and will give FFP today. Tongue looks a bit smaller today but given no leak, CCM will not extubate today. Sedated with propofol and versed. Son at bedside today. 08/22: RT performed leak test in the AM and stated there was a leak noted and placed the patient on CPAP. She was sedated on versed at 4 and propofol at 30 but these are off for CPAP. Will removed lewis. Received FFP yesterday. Angioedema is improved. Leak test performed again with Dr. Bailey and no leak audible. Switched back to AC and sedation restarted 08/23: Remains on the vent and sedated. Cuff leak assessed again today by [facility], still no significant air leak noted. Per CCM keep patient intubated and sedated and continue IV steroids and histamine therapy for now. Fentanyl gtt added, plan to wean off versed for RASS goal of 0 to -1. 5/10: Arousable and appropriate on the vent and on low dose sedation. No cuff leak again today per RT. D/W CCM plan for CT neck w/o contrast for further eval. If CT neck normal, PSV trial and possible extubation tomorrow. 08/25: S/p extubation this am, audible stridor appreciated. S/p X2 doses of RaceEpi and IV solumedrol X1 dose. Patient currently stable on 4L NC, SPO2 at 94%. Patient is low threshold for re-intubation, case discussed with anesthesia in case of any decompensation. D/w CCM patient will need a trach if she is reintubated. Plan of care was thoroughly discussed with patient's son at the bedside by the auto collision repair instructor. All question and concerns were addressed at this time. 08/26: Reintubated yesterday due to stridor. General Surgery consulted, plan for possible trach and PEG today. Hypotension resolved this am most likely due to sedation for intubation, VSS today. Wean SPO2 as tolerated for SPO2 above 90%. Continue to monitor and replete electrolytes as needed. 08/27: s/p Trach and PEG overnight. Patient is stable on the vent this am, sedated on propofol and fentanyl. okay to use PEG-tube per general surgery, resume TF as ordered. PRN Analgesia added for pain control, wean off sedation as tolerated. Plan for possible PSV trial tomorrow. 08/28: Stable on the vent, still on sedation. Schedule tramadol and PRN fentanyl added for pain control, plan to wean sedation as tolerated. Possible PSV trial t omorrow if off sedation. PRN Xanax for anxiety. BR added for constipation. 08/29: Back on propofol from overnight due to increase anxiety. Patient is awake and calm this am, will D/C propofol and use PRN Xanax as needed for anxiety. Continue schedule tramadol and PRN fentanyl for pain control. Patient with increase secretion today, orally and via trach. Patient is also febrile with spike in WBCs, Chest XR ordered and will panculture. Hold off IV abx for now. Will also remove lewis catheter, straight/cath and bladder scan per protocol. 08/30: Ordered mag citrate today as suppositories do not yield any results yesterday, will start bladder training today. Remains afebrile. PSV per RT. 08/31: D/w Dr Jenkins, will attempt t peice trial for 24 hrs. Ultimately dispo for this patient will be SNF if able to tolerate trial. Paged in afternoon regarding projectile vomiting. No residual noted in PEG tube. KUB ordered. Will likely order Mag citrate as patient has not had BM. 09/01: This AM noted to have bleeding from trach site and peg tube noted to be misplaced with brown drainage. Dr. Mays alerted and came to bedside. RT states suture was removed from trach which stopped the bleeding. Neck and Abd/Pelvis CT ordered. Abd CT showed pef displacement and surgery contacted vascular surgery who will take the patient to IR. Stat CBC and BMP obtained. ID consulted re PCN allergy and sputum culture sent re concern for Pseudumonas in trach aspirate. meds changed to iv 09/02-patient seen at bedside. Awake-she reports coughing and asking for cough medicine. Pt is s/p peg placement. Pt is NPO and on gently IV fluid for hydration. Will start feeding per surgery. Reviewed lab and v/s. Patient not in acute distress. I discussed plan of care with Dr Jenkins-will restart tube feeding, Heprin richard bcutaneous, continue IV diflucan and f/u with ID reces for abx. Will continue PS C-JBA-Cxixzapp T-piece tomorrow if patient is stable. 09/03: Patient having bilious drainage from PEG tube entrance site, awaiting surgery around. Started on mineral enemas, T-max 102, aztreonam IV, then discontinued, RN to monitor disimpact the patient. Patient will be started on TPN. PICC consult for PICC 09/04: Dr. Young recommends holding off tube feeds and she inflated the balloon for G-tube. Gastrografin x-ray completed which states PEG tube is in stomach without extravasation and tube feedings will be restarted. Continues on T- piece. No acute events reported overnight. MIVF continues. 09/05: Patient restarted on tube feedings overnight and has been tolerating, restarted p.o. medications. Per RN patient has had multiple large BMs. Patient is a tolerating T-piece and will be transferred to the floor today. 09/06: Awaiting placement to snf. d/w cm during rounds this am. Assessment and plan: Neuro: h/o depression -Restart home thiamine, multivitamin, Zoloft, BuSpar and as needed Xanax -Tramadol prn -Avoid delirium -Reorientation as needed -Maintain sleep-wake cycle -As needed analgesia Cardiac: h/o htn -Blood pressure monitoring per protocol -Hydralazine as needed -resume home antihypertenisve regimen when available and if needed Respiratory: Acute hypoxic respiratory failure, angioedema -CCM consulted, appreciate recommendations -Intubated in the emergency department on 08/19 with 7.50 ETT at 24 the lips, extubated 08/25 but reintubated shortly after -s/p trach and peg 08/26 -T piece trials -VAP bundle -SPO2 monitoring -s/p Benadryl, Pepcid, Solu-Medrol GI: MO, malpositioned peg tube -s/p peg 08/26 -24 hours -300 mL -PPI -NTR consulted for tube feedings -BR: Senna,colace, miralax -08/29 suppository, 08/30 mag citrate, 08/31 lactulose q2 -CT abd/pelvis shows misposition of PEG -IR consult by surgery for replacement in IR lab under flouro -S/p 09/01 EGD, removal of PEG tube, laparoscopic exploration, lysis of adhesions, stable closure of gastrotomy site, placement of gastric tube 20 Croatian -Dr. Young replaced air to gtube balloon and gastrografen xray showed no extravastation on 09/04 -tolerating TF : Urinary retention -Strict intake and output -Renally dose medications -Avoid nephrotoxic medications -Daily weights -Trend BMP -Lewis reinserted -bladder scan and training ID: Sepsis/SIRS secondary to right lower lobe pneumonia, Intra-Op finding of esophageal candidiasis -Seen on CT A/P -ID consulted, appreciate recommendations -Per ID: Sputum culture growing usual respiratory david and aztreonam discontinued -Vancomycin discontinued as MRSA PCR negative -Antibiotic therapy: Levofloxacin for 5 days and fluconazole for 14 days -f/u blood culture -Monitor WBC and temperature curve Endo: h/o hypothyroidism -continue synthroid -Avoid hypoglycemia -SSI -Accu-Cheks q. 6 Heme: Leukocytosis -Trend CBC -Transfuse hemoglobin less than 7 -Monitor for signs of bleeding -SCDs to BLE while in bed -heparin subq History Interval history: NO acute complaints. Son at bedside. Discussed care plan and ultimate disposition for snf. Son verbalized understanding and agreeable with plan for today as was patient. Hospitalist Physical - Physical exam Narrative exam: General appearance: Present: no acute distress, well-nourished, obese - EENT Eyes: Present: PERRL, EOM intact ENT: hearing intact, clear oral mucosa, poor dentition - Neck Neck: Present: normal ROM - Respiratory Respiratory effort: normal Respiratory: bilateral: CTA - Cardiovascular Rhythm: regular Heart Sounds: Present: S1 & S2. Absent: systolic murmur, diastolic murmur - Extremities Extremities: no ischemia, pulses intact, pulses symmetrical, No edema, normal temperature, normal color Peripheral Pulses: within normal limits - Abdominal General gastrointestinal: soft, non-tender, non-distended, normal bowel sounds - Integumentary Integumentary: Present: warm, dry - Psychiatric Psychiatric: appropriate mood/affect, cooperative - Neurologic Neurologic: CNII-XII intact, no focal deficits, moves all extremities - Allied Health Allied health notes reviewed: nursing, RT - Constitutional Vitals: Temp Pulse Resp BP Pulse Ox 99.0 F 80 18 144/88 99 09/06/21 12:03 09/06/21 12:03 09/06/21 12:03 09/06/21 12:03 09/06/21 12:03 General appearance: Present: no acute distress, well-nourished, obese Results - Labs CBC & Chem 7: 09/06/21 04:00 09/06/21 04:00 Labs: Laboratory Last Values WBC 8.3 K/mm3 (4.5-11.0) 09/06/21 04:00 RBC 2.93 M/mm3 (3.65-5.03) L 09/06/21 04:00 Hgb 9.4 gm/dl (10.1-14.3) L 09/06/21 04:00 Hct 28.6 % (30.3-42.9) L 09/06/21 04:00 MCV 98 fl (79-97) H 09/06/21 04:00 MCH 32 pg (28-32) 09/06/21 04:00 MCHC 33 % (30-34) 09/06/21 04:00 RDW 15.3 % (13.2-15.2) H 09/06/21 04:00 Plt Count 349 K/mm3 (140-440) 09/06/21 04:00 Lymph # (Auto) Coke Worker 08/19/21 02:24 Add Manual Diff Complete 08/30/21 03:22 Total Counted 100 08/30/21 03:22 Seg Neuts % (Manual) 87.0 % (40.0-70.0) H 08/30/21 03:22 Band Neutrophils % 0 % 08/30/21 03:22 Lymphocytes % (Manual) 10.0 % (13.4-35.0) L 08/30/21 03:22 Reactive Lymphs % (Man) 0 % 08/30/21 03:22 Monocytes % (Manual) 3.0 % (0.0-7.3) 08/30/21 03:22 Eosinophils % (Manual) 0 % (0.0-4.3) 08/30/21 03:22 Basophils % (Manual) 0 % (0.0-1.8) 08/30/21 03:22 Metamyelocytes % 0 % 08/30/21 03:22 Myelocytes % 0 % 08/30/21 03:22 Promyelocytes % 0 % 08/30/21 03:22 Blast Cells % 0 % 08/30/21 03:22 Nucleated RBC % Not Reportable 08/30/21 03:22 Seg Neutrophils # Man 17.7 K/mm3 (1.8-7.7) H 08/30/21 03:22 Band Neutrophils # 0.0 K/mm3 08/30/21 03:22 Lymphocytes # (Manual) 2.0 K/mm3 (1.2-5.4) 08/30/21 03:22 Abs React Lymphs (Man) 0.0 K/mm3 08/30/21 03:22 Monocytes # (Manual) 0.6 K/mm3 (0.0-0.8) 08/30/21 03:22 Eosinophils # (Manual) 0.0 K/mm3 (0.0-0.4) 08/30/21 03:22 Basophils # (Manual) 0.0 K/mm3 (0.0-0.1) 08/30/21 03:22 Metamyelocytes # 0.0 K/mm3 08/30/21 03:22 Myelocytes # 0.0 K/mm3 08/30/21 03:22 Promyelocytes # 0.0 K/mm3 08/30/21 03:22 Blast Cells # 0.0 K/mm3 08/30/21 03:22 WBC Morphology Not Reportable 08/30/21 03:22 Hypersegmented Neuts Not Reportable 08/30/21 03:22 Hyposegmented Neuts Not Reportable 08/30/21 03:22 Hypogranular Neuts Not Reportable 08/30/21 03:22 Smudge Cells Not Reportable 08/30/21 03:22 Toxic Granulation Not Reportable 08/30/21 03:22 Toxic Vacuolation Not Reportable 08/30/21 03:22 Dohle Bodies Not Reportable 08/30/21 03:22 Pelger-Huet Anomaly Not Reportable 08/30/21 03:22 Erik Rods Not Reportable 08/30/21 03:22 Platelet Estimate Consistent w auto 08/30/21 03:22 Clumped Platelets Not Reportable 08/30/21 03:22 Plt Clumps, EDTA Not Reportable 08/30/21 03:22 Large Platelets Not Reportable 08/30/21 03:22 Giant Platelets Not Reportable 08/30/21 03:22 Platelet Satelliting Not Reportable 08/30/21 03:22 Plt Morphology Comment Not Reportable 08/30/21 03:22 RBC Morphology Normal 08/30/21 03:22 Dimorphic RBCs Not Reportable 08/30/21 03:22 Polychromasia Not Reportable 08/30/21 03:22 Hypochromasia Not Reportable 08/30/21 03:22 Poikilocytosis Not Reportable 08/30/21 03:22 Anisocytosis Not Reportable 08/30/21 03:22 Microcytosis Not Reportable 08/30/21 03:22 Macrocytosis Not Reportable 08/30/21 03:22 Spherocytes Not Reportable 08/30/21 03:22 Pappenheimer Bodies Not Reportable 08/30/21 03:22 Sickle Cells Not Reportable 08/30/21 03:22 Target Cells Not Reportable 08/30/21 03:22 Tear Drop Cells Not Reportable 08/30/21 03:22 Ovalocytes Not Reportable 08/30/21 03:22 Helmet Cells Not Reportable 08/30/21 03:22 Rai-[place] Bodies Not Reportable 08/30/21 03:22 [place] Rings Not Reportable 08/30/21 03:22 Caprice Cells Not Reportable 08/30/21 03:22 Bite Cells Not Reportable 08/30/21 03:22 Crenated Cell Not Reportable 08/30/21 03:22 Elliptocytes Not Reportable 08/30/21 03:22 Acanthocytes (Spur) Not Reportable 08/30/21 03:22 Rouleaux Not Reportable 08/30/21 03:22 Hemoglobin C Crystals Not Reportable 08/30/21 03:22 Schistocytes Not Reportable 08/30/21 03:22 Malaria parasites Not Reportable 08/30/21 03:22 Marco Bodies Not Reportable 08/30/21 03:22 Hem Pathologist Commnt No 08/30/21 03:22 PT 12.8 Sec. (12.2-14.9) 08/19/21 02:24 INR 0.87 (0.87-1.13) 08/19/21 02:24 APTT 20.0 Sec. (24.2-36.6) L 08/19/21 02:24 ABG pH 7.516 pH Units (7.350-7.450) H 08/27/21 03:56 POC ABG pCO2 30.1 mmHg (32.0-48.0) L 08/22/21 10:16 ABG pCO2 34.4 mm Hg 08/27/21 03:56 POC ABG pO2 109.5 mmHg (83-108) H 08/22/21 10:16 ABG pO2 117.0 mm Hg (80.0-90.0) H 08/27/21 03:56 POC ABG HCO3 23.5 08/22/21 10:16 ABG HCO3 27.2 mmol/L (20.0-26.0) H 08/27/21 03:56 ABG O2 Saturation 98.4 % (95.0-99.0) 08/27/21 03:56 ABG O2 Content 15.3 (0.0-44) 08/27/21 03:56 POC ABG Base Excess 1.2 08/22/21 10:16 ABG Base Excess 4.3 mmol/L (-2.0-3.0) H 08/27/21 03:56 ABG Hemoglobin 11.1 gm/dl (12.0-16.0) L 08/27/21 03:56 ABG Oxyhemoglobin 96.8 (94-98) 08/22/21 10:16 ABG Carboxyhemoglobin 1.0 % (0.0-5.0) 08/27/21 03:56 ABG Methemoglobin 0.5 % (0.0-1.5) 08/27/21 03:56 ABG Sodium Not Reportable 08/22/21 10:16 ABG Potassium Not Reportable 08/22/21 10:16 ABG Chloride Not Reportable 08/22/21 10:16 ABG Glucose Not Reportable 08/22/21 10:16 Oxyhemoglobin 96.9 % (95.0-99.0) 08/27/21 03:56 Carboxyhemoglobin 1.1 (0.5-1.5) 08/22/21 10:16 FiO2 40 % 08/27/21 03:56 FiO2 % 30.0 08/22/21 10:16 Sodium 135 mmol/L (137-145) L 09/06/21 04:00 Potassium 4.2 mmol/L (3.6-5.0) 09/06/21 04:00 Chloride 103.4 mmol/L (98-107) 09/06/21 04:00 Carbon Dioxide 19 mmol/L (22-30) L 09/06/21 04:00 Anion Gap 17 mmol/L 09/06/21 04:00 BUN 8 mg/dL (7-17) 09/06/21 04:00 Creatinine 0.5 mg/dL (0.6-1.2) L 09/06/21 04:00 Estimated GFR > 60 ml/min 09/06/21 04:00 BUN/Creatinine Ratio 16 % 09/06/21 04:00 Glucose 110 mg/dL (65-100) H 09/06/21 04:00 POC Glucose 112 mg/dL (70-105) H 09/06/21 12:04 Calcium 9.3 mg/dL (8.4-10.2) 09/06/21 04:00 Phosphorus 3.30 mg/dL (2.5-4.5) D 09/06/21 04:00 Magnesium 2.00 mg/dL (1.7-2.3) 09/06/21 04:00 Total Bilirubin 0.30 mg/dL (0.1-1.2) 09/04/21 04:15 AST 19 units/L (5-40) 09/04/21 04:15 ALT 16 units/L (7-56) 09/04/21 04:15 Alkaline Phosphatase 102 units/L (35-129) 09/04/21 04:15 C-Reactive Protein 29.40 mg/dL (0.00-1.30) H 09/02/21 04:08 Total Protein 6.6 g/dL (6.3-8.2) 09/04/21 04:15 Albumin 2.4 g/dL (3.9-5) L 09/04/21 04:15 Albumin/Globulin Ratio 0.6 % 09/04/21 04:15 Triglycerides 200 mg/dL (2-149) H 08/27/21 04:25 Procalcitonin 1.34 ng/mL (<0.15) 09/02/21 04:08 Arterial Blood Glucose Not Reportable 08/22/21 10:16 Nasal Screen MRSA (PCR) Negative (Negative) 09/01/21 12:15 Blood Type A POSITIVE 08/21/21 15:10 Microbiology: Microbiology 09/01/21 07:34 Peripheral/Venous Blood Culture - Final NO GROWTH AFTER 5 DAYS 09/01/21 07:34 Peripheral/Venous Blood Culture - Final NO GROWTH AFTER 5 DAYS Lewis/IV: Voiding Method Indwelling Catheter Active Medications - Current Medications Current Medications: Generic Name Dose Route Start Last Admin Trade Name Freq PRN Reason Stop Dose Admin Acetaminophen 650 mg 08/19/21 06:00 09/02/21 14:20 Acetaminophen 325 Mg Tab FEEDTUBE 650 mg Q4H PRN Administration Fever >100.5/SAEED/MILD PAIN 1-3 Albuterol 2.5 mg 08/19/21 04:50 Albuterol 2.5 Mg/3 Ml Nebu IH Q3HRT PRN Shortness Of Breath Atorvastatin Calcium 10 mg 09/05/21 22:00 09/05/21 21:56 Atorvastatin 10 Mg Tab FEEDTUBE 10 mg QHS WARD Administration Buspirone HCl 10 mg 09/05/21 10:00 09/06/21 09:15 Buspirone 10 Mg Tab FEEDTUBE 10 mg BID WARD Administration Dextrose 50 ml 08/20/21 10:00 09/03/21 12:34 Dextrose 50% In Water (25gm) 50 Ml Syringe IV 15 ml Q30MIN PRN Administration Hypoglycemia Protocol Folic Acid 1 mg 09/05/21 10:00 09/06/21 09:09 Folic Acid 1 Mg Tab FEEDTUBE 1 mg QDAY WARD Administration Haloperidol Lactate 5 mg 08/29/21 09:58 09/03/21 17:39 Haloperidol Lactate 5 Mg/1 Ml Inj IV 5 mg Q6H PRN Administration Agitation Heparin Sodium (Porcine) 5,000 unit 08/19/21 10:00 09/06/21 09:10 Heparin 5,000 Unit/1 Ml Vial SUB-Q 5,000 unit Q12HR WARD Administration Hydralazine HCl 10 mg 08/19/21 05:03 08/24/21 18:09 Hydralazine 20 Mg/1 Ml Inj IV 10 mg Q6H PRN Administration SBP >/=160; DBP >/=100 Fluconazole 200 mg in 100 mls @ 100 mls/hr 09/01/21 20:00 09/05/21 20:10 Diflucan IV 09/14/21 20:59 100 mls/hr Q24H WARD Administration Protocol Insulin Human Regular 0 units 08/20/21 12:00 09/06/21 05:49 Insulin Regular, Human 100 Units/1 Ml SUB-Q Not Given Q6H WARD Protocol Lorazepam 0.25 mg 09/05/21 14:41 09/06/21 03:12 Lorazepam 0.5 Mg Tab FEEDTUBE 0.25 mg BID PRN Administration Agitation Mineral Oil 133 ml 09/05/21 08:49 Mineral Oil Enema 133 Ml TX QDAY PRN Constipation Ondansetron HCl 4 mg 08/19/21 04:50 Ondansetron 4 Mg/2 Ml Inj IV Q8H PRN Nausea And Vomiting Senna 8.8 mg 09/05/21 22:00 09/05/21 21:57 Sennosides Oral Liqd 8.8 Mg/5 Ml Oral Liqd FEEDTUBE Not Given QHS WARD Sodium Chloride 10 ml 08/19/21 10:00 09/06/21 09:11 Sodium Chloride 0.9% 10 Ml Flush Syringe IV 10 ml BID WARD Administration Sodium Chloride 10 ml 08/19/21 04:50 Sodium Chloride 0.9% 10 Ml Flush Syringe IV PRN PRN LINE FLUSH Sucralfate 1 gm 09/05/21 12:00 09/06/21 11:51 Sucralfate 1 Gm/10 Ml Oral Liqd FEEDTUBE 1 gm Q6HR WARD Administration Thiamine HCl 100 mg 09/05/21 10:00 09/06/21 09:10 Thiamine 100 Mg Tab FEEDTUBE 100 mg QDAY WARD Administration Tramadol HCl 50 mg 09/05/21 14:42 09/06/21 11:50 Tramadol 50 Mg Tab FEEDTUBE 50 mg Q4H PRN Administration Pain, Moderate (4-6) Nutrition/Malnutrition Assess - Dietary Evaluation Nutrition/Malnutrition Findings: Nutrition Notes Start: 08/19/21 10:13 Freq: Status: Active Protocol: Document 09/05/21 10:15 LOGAN (Rec: 09/05/21 10:26 [facility] [id number]) Nutrition Notes Need for Assessment generated from: MD Order Initial or Follow up Reassessment Current Diagnosis Respiratory Failure Other Pertinent Diagnosis s/p exp lap with lysis of adhesions, angioedema Current Diet TPN at 75ml/hr Labs/Tests Reviewed Pertinent Medications Reviewed Height 4 ft 11 in Weight 74 kg [place] Body Weight (kg) 43.18 BMI 32.9 Weight Status Obese Subjective/Other Information RD consulted to resume TF. Per surgeon, gastric tube leak was sec to balloon not being filled; this has been resolved and G-tube study showed that tube is in stomach with no signs of leakage. Pt remains on vent support. Burn Absent Trauma Absent #1 Nutrition Diagnosis Inadequate oral intake Diagnosis Progress(for reassessment Continues documentation) Is patient on ventilator? Yes Is Patient Ambulatory and/or Out of Bed No REE-([facility]-confined to bed) 1375.068 Kcal/Kg value to use for calculation 17 Approximate Energy Requirements Using 1258 kcal/Kg Calculation Used for Recommendations Kcal/kg Additional Notes Pro needs 2g/kg IBW: 86g/day Fluid needs 1ml/kcal Nutrition Intervention Nutrition Support: D/C CPN and resume TF ( Glucerna 1.2) at 45ml/hr with 70ml water flush q4h. Kcal 1,296 Protein (gm) 65 Carbohydrates (gm) 124 Fat (gm) 65 Fluid (mL) 869 Fiber (gm) 17 Goal #1 TF tolerance Goal #2 TF to meet at least 75% energy and pro needs Follow-Up By: 05/23/22 Additional Comments F/U: TF restart/tolerance, vent status, BM
[2021-09-06] MEDS: FLUCONAZOLE 200 MG 200 MG/100 ML BAG IV SCH (20:50)
[2021-09-06] MEDS: SENNOSIDES ORAL LIQD 8.8 MG/5 ML ORAL LIQD FEEDTUBE SCH (22:15)
[2021-09-07] MEDS: SUCRALFATE 1 GM/10 ML ORAL LIQD FEEDTUBE SCH ×4 (00:42→17:45)
[2021-09-07] MEDS: INSULIN REGULAR, HUMAN 100 UNITS/1 ML SUB-Q SCH ×4 (05:19→17:01)
[2021-09-07 06:48] LABS: Basophils # (Auto) 0.1 K/mm3 (0.0-0.1); Basophils % (Auto) 1.3 % (0.0-1.8); Eosinophils # (Auto) 0.5 K/mm3 (0.0-0.4); Eosinophils % (Auto) 5.7 % (0.0-4.3); Hematocrit 28.2 % (30.3-42.9); Hemoglobin 9.5 gm/dl (10.1-14.3); Lymphocytes # (Auto) 2.9 K/mm3 (1.2-5.4); Lymphocytes % (Auto) 30.6 % (13.4-35.0); Mean Corpuscular HGB Conc 34 % (30-34); Mean Corpuscular Volume 97 fl (79-97); Monocytes # (Auto) 0.4 K/mm3 (0.0-0.8); Monocytes % (Auto) 4.5 % (0.0-7.3); Platelet Count 394 K/mm3 (140-440); Red Blood Count 2.92 M/mm3 (3.65-5.03); Red Cell Distribution Width 15.2 % (13.2-15.2)
[2021-09-07 07:12] LABS: BUN/Creatinine Ratio 18; Blood Urea Nitrogen 11 mg/dL (7-17); Calcium 10.3 mg/dL (8.4-10.2); Hemolysis Index 1
--- NOTE | 2021-09-07 08:25 | Progress Note ---
Assessment and Plan Assessment and plan: 76-year-old female patient with history of depression hypothyroidism, hypertension was admitted on 08/19/2021 with angioedema due to amlodipine intubated on 08/19/2021 stabilized and extubated on 08/25/2021 patient developed stridor and was reintubated on 08/26/2021 and subsequently underwent tracheostomy and PEG tube placement on 08/26/2021 Neuro: h/o depression -Restart home thiamine, multivitamin, Zoloft, BuSpar and as needed Xanax -Tramadol prn -Avoid delirium -Reorientation as needed -Maintain sleep-wake cycle -As needed analgesia Cardiac: h/o htn -Blood pressure monitoring per protocol -Hydralazine as needed -resume home antihypertenisve regimen when available and if needed Respiratory: Acute hypoxic respiratory failure, angioedema -CCM consulted, appreciate recommendations -Intubated in the emergency department on 08/19 with 7.50 ETT at 24 the lips, extubated 08/25 but reintubated shortly after -s/p trach and peg 08/26 -T piece trials -VAP bundle -SPO2 monitoring -s/p Benadryl, Pepcid, Solu-Medrol GI: MO, malpositioned peg tube -s/p peg 08/26 -24 hours -300 mL -PPI -NTR consulted for tube feedings -BR: Senna,colace, miralax -08/29 suppository, 08/30 mag citrate, 08/31 lactulose q2 -CT abd/pelvis shows misposition of PEG -IR consult by surgery for replacement in IR lab under flouro -S/p 09/01 EGD, removal of PEG tube, laparoscopic exploration, lysis of adhesions, stable closure of gastrotomy site, placement of gastric tube 20 [place] -Dr. Young replaced air to gtube balloon and gastrografen xray showed no extravastation on 09/04 -tolerating TF : Urinary retention -Strict intake and output -Renally dose medications -Avoid nephrotoxic medications -Daily weights -Trend BMP -Lewis reinserted -bladder scan and training ID: Sepsis/SIRS secondary to right lower lobe pneumonia, Intra-Op finding of esophageal candidiasis -Seen on CT A/P -ID consulted, appreciate recommendations -Per ID: Sputum culture growing usual respiratory david and aztreonam discontinued -Vancomycin discontinued as MRSA PCR negative -Antibiotic therapy: Levofloxacin for 5 days and fluconazole for 14 days -f/u blood culture -Monitor WBC and temperature curve Endo: h/o hypothyroidism -continue synthroid -Avoid hypoglycemia -SSI -Accu-Cheks q. 6 Heme: Leukocytosis -Trend CBC -Transfuse hemoglobin less than 7 -Monitor for signs of bleeding -SCDs to BLE while in bed -heparin subq Wean oxygen as tolerated We will closely monitor the patient and adjust management as needed Plan of care reviewed with the patient and nurse and the case management Awaiting placement SNF/LTAC/subacute. CM assisting with discharge planning Brief history and daily hospital course; 08/19: Patient started on tube feedings, potassium repleted, started on Benadryl and propofol for sedation. SSI started. Air leak present today however due to swelling of the tongue we will hold off extubation. [facility] plans to try FFP in the a.m. if swelling not better. 08/20: Angioedema slightly better so we will hold off FFP today. Updated son at bedside but he did not know what medication she was taking and states that she has not had angioedema in the past. Patient still remains on Versed and propofol. Was given 500 mL bolus overnight for hypotension and will repeat for hypotension. 08/21: Leak test today at bedside with RT shows no leak and will give FFP today. Tongue looks a bit smaller today but given no leak, CCM will not extubate today. Sedated with propofol and versed. Son at bedside today. 08/22: RT performed leak test in the AM and stated there was a leak noted and placed the patient on CPAP. She was sedated on versed at 4 and propofol at 30 but these are off for CPAP. Will removed lewis. Received FFP yesterday. Angioedema is improved. Leak test performed again with Dr. Bailey and no leak audible. Switched back to AC and sedation restarted 08/23: Remains on the vent and sedated. Cuff leak assessed again today by [facility], still no significant air leak noted. Per CCM keep patient intubated and sedated and continue IV steroids and histamine therapy for now. Fentanyl gtt added, plan to wean off versed for RASS goal of 0 to -1. /10: Arousable and appropriate on the vent and on low dose sedation. No cuff leak again today per RT. D/W CCM plan for CT neck w/o contrast for further eval. If CT neck normal, PSV trial and possible extubation tomorrow. 08/25: S/p extubation this am, audible stridor appreciated. S/p X2 doses of RaceEpi and IV solumedrol X1 dose. Patient currently stable on 4L NC, SPO2 at 94%. Patient is low threshold for re-intubation, case discussed with anesthesia in case of any decompensation. D/w CCM patient will need a trach if she is reintubated. Plan of care was thoroughly discussed with patient's son at the bedside by the ocean freight agent. All question and concerns were addressed at this time. 08/26: Reintubated yesterday due to stridor. General Surgery consulted, plan for possible trach and PEG today. Hypotension resolved this am most likely due to sedation for intubation, VSS today. Wean SPO2 as tolerated for SPO2 above 90%. Continue to monitor and replete electrolytes as needed. 08/27: s/p Trach and PEG overnight. Patient is stable on the vent this am, sedated on propofol and fentanyl. okay to use PEG-tube per general surgery, resume TF as ordered. PRN Analgesia added for pain control, wean off sedation as tolerated. Plan for possible PSV trial tomorrow. 08/28: Stable on the vent, still on sedation. Schedule tramadol and PRN fentanyl added for pain control, plan to wean sedation as tolerated. Possible PSV trial tomorrow if off sedation. PRN Xanax for anxiety. BR added for constipation. 08/29: Back on propofol from overnight due to increase anxiety. Patient is awake and calm this am, will D/C propofol and use PRN Xanax as needed for anxiety. Continue schedule tramadol and PRN fentanyl for pain control. Patient with increase secretion today, orally and via trach. Patient is also febrile with spike in WBCs, Chest XR ordered and will panculture. Hold off IV abx for now. Will also remove lewis catheter, straight/cath and bladder scan per protocol. 08/30: Ordered mag citrate today as suppositories do not yield any results yesterday, will start bladder training today. Remains afebrile. PSV per RT. 08/31: D/w Dr Jenkins, will attempt t peice trial for 24 hrs. Ultimately dispo for this patient will be SNF if able to tolerate trial. Paged in afternoon regarding projectile vomiting. No residual noted in PEG tube. KUB ordered. Will likely order Mag citrate as patient has not had BM. 09/01: This AM noted to have bleeding from trach site and peg tube noted to be misplaced with brown drainage. Dr. Mays alerted and came to bedside. RT states suture was removed from trach which stopped the bleeding. Neck and Abd/Pelvis CT ordered. Abd CT showed pef displacement and surgery contacted vascular surgery who will take the patient to IR. Stat CBC and BMP obtained. ID consulted re PCN allergy and sputum culture sent re concern for Pseudumonas in trach aspirate. meds changed to iv 09/02-patient seen at bedside. Awake-she reports coughing and asking for cough medicine. Pt is s/p peg placement. Pt is NPO and on gently IV fluid for hydration. Will start feeding per surgery. Reviewed lab and v/s. Patient not in acute distress. I discussed plan of care with Dr Jenkins-will restart tube feeding, Heprin subcutaneous, continue IV diflucan and f/u with ID reces for abx. Will continue PS [id number] T-piece tomorrow if patient is stable. 09/03: Patient having bilious drainage from PEG tube entrance site, awaiting richard rgery around. Started on mineral enemas, T-max 102, aztreonam IV, then discontinued, RN to monitor disimpact the patient. Patient will be started on TPN. PICC consult for PICC 09/04: Dr. Young recommends holding off tube feeds and she inflated the balloon for G-tube. Gastrografin x-ray completed which states PEG tube is in stomach without extravasation and tube feedings will be restarted. Continues on T- piece. No acute events reported overnight. MIVF continues. 09/05: Patient restarted on tube feedings overnight and has been tolerating, restarted p.o. medications. Per RN patient has had multiple large BMs. Patient is a tolerating T-piece and will be transferred to the floor today. 09/06: Awaiting placement to snf. d/w cm during rounds this am. 09/07; awaiting placement LTAC/SNF/rehab Disposition; discharge when medically stable and when placement is processed. History Interval history: I have seen and examined the patient at the bedside Patient's chart and medications reviewed Patient is alert and awake status post tracheostomy on T-piece oxygen Responding to simple questions appropriately Not in acute distress Vital signs reviewed Hospitalist Physical - Constitutional Vitals: Temp Pulse Resp BP Pulse Ox 98.2 F 93 H 18 120/80 98 09/06/21 22:46 09/07/21 04:00 09/06/21 20:53 09/06/21 20:53 09/07/21 08:18 General appearance: Present: no acute distress, well-nourished, obese, other (Tracheostomy on T-piece, 35% O2 8 L saturating well) - EENT Eyes: Present: PERRL, EOM intact ENT: other (Tracheostomy in place) - Neck Neck: Present: supple, normal ROM - Respiratory Respiratory effort: normal Respiratory: bilateral: diminished, rhonchi, negative: rales, wheezing - Cardiovascular Rhythm: regular Heart Sounds: Present: S1 & S2 - Extremities Extremities: no ischemia, No edema - Abdominal General gastrointestinal: soft, non-tender, non-distended, normal bowel sounds - Integumentary Integumentary: Present: clear, warm - Psychiatric Psychiatric: appropriate mood/affect, cooperative - Neurologic Neurologic: moves all extremities Results - Labs CBC & Chem 7: 09/07/21 06:00 09/07/21 06:00 Labs: Laboratory Last Values WBC 9.6 K/mm3 (4.5-11.0) 09/07/21 06:00 RBC 2.92 M/mm3 (3.65-5.03) L 09/07/21 06:00 Hgb 9.5 gm/dl (10.1-14.3) L 09/07/21 06:00 Hct 28.2 % (30.3-42.9) L 09/07/21 06:00 MCV 97 fl (79-97) 09/07/21 06:00 MCH 33 pg (28-32) H 09/07/21 06:00 MCHC 34 % (30-34) 09/07/21 06:00 RDW 15.2 % (13.2-15.2) 09/07/21 06:00 Plt Count 394 K/mm3 (140-440) 09/07/21 06:00 Lymph % (Auto) 30.6 % (13.4-35.0) 09/07/21 06:00 Gillespie % (Auto) 4.5 % (0.0-7.3) 09/07/21 06:00 Eos % (Auto) 5.7 % (0.0-4.3) H 09/07/21 06:00 Baso % (Auto) 1.3 % (0.0-1.8) 09/07/21 06:00 Lymph # (Auto) 2.9 K/mm3 (1.2-5.4) 09/07/21 06:00 Gillespie # (Auto) 0.4 K/mm3 (0.0-0.8) 09/07/21 06:00 Eos # (Auto) 0.5 K/mm3 (0.0-0.4) H 09/07/21 06:00 Baso # (Auto) 0.1 K/mm3 (0.0-0.1) 09/07/21 06:00 Add Manual Diff Complete 08/30/21 03:22 Total Counted 100 08/30/21 03:22 Seg Neutrophils % 57.9 % (40.0-70.0) 09/07/21 06:00 Seg Neuts % (Manual) 87.0 % (40.0-70.0) H 08/30/21 03:22 Band Neutrophils % 0 % 08/30/21 03:22 Lymphocytes % (Manual) 10.0 % (13.4-35.0) L 08/30/21 03:22 Reactive Lymphs % (Man) 0 % 08/30/21 03:22 Monocytes % (Manual) 3.0 % (0.0-7.3) 08/30/21 03:22 Eosinophils % (Manual) 0 % (0.0-4.3) 08/30/21 03:22 Basophils % (Manual) 0 % (0.0-1.8) 08/30/21 03:22 Metamyelocytes % 0 % 08/30/21 03:22 Myelocytes % 0 % 08/30/21 03:22 Promyelocytes % 0 % 08/30/21 03:22 Blast Cells % 0 % 08/30/21 03:22 Nucleated RBC % Not Reportable 08/30/21 03:22 Seg Neutrophils # 5.5 K/mm3 (1.8-7.7) 09/07/21 06:00 Seg Neutrophils # Man 17.7 K/mm3 (1.8-7.7) H 08/30/21 03:22 Band Neutrophils # 0.0 K/mm3 08/30/21 03:22 Lymphocytes # (Manual) 2.0 K/mm3 (1.2-5.4) 08/30/21 03:22 Abs React Lymphs (Man) 0.0 K/mm3 08/30/21 03:22 Monocytes # (Manual) 0.6 K/mm3 (0.0-0.8) 08/30/21 03:22 Eosinophils # (Manual) 0.0 K/mm3 (0.0-0.4) 08/30/21 03:22 Basophils # (Manual) 0.0 K/mm3 (0.0-0.1) 08/30/21 03:22 Metamyelocytes # 0.0 K/mm3 08/30/21 03:22 Myelocytes # 0.0 K/mm3 08/30/21 03:22 Promyelocytes # 0.0 K/mm3 08/30/21 03:22 Blast Cells # 0.0 K/mm3 08/30/21 03:22 WBC Morphology Not Reportable 08/30/21 03:22 Hypersegmented Neuts Not Reportable 08/30/21 03:22 Hyposegmented Neuts Not Reportable 08/30/21 03:22 Hypogranular Neuts Not Reportable 08/30/21 03:22 Smudge Cells Not Reportable 08/30/21 03:22 Toxic Granulation Not Reportable 08/30/21 03:22 Toxic Vacuolation Not Reportable 08/30/21 03:22 Dohle Bodies Not Reportable 08/30/21 03:22 Pelger-Huet Anomaly Not Reportable 08/30/21 03:22 Erik Rods Not Reportable 08/30/21 03:22 Platelet Estimate Consistent w auto 08/30/21 03:22 Clumped Platelets Not Reportable 08/30/21 03:22 Plt Clumps, EDTA Not Reportable 08/30/21 03:22 Large Platelets Not Reportable 08/30/21 03:22 Giant Platelets Not Reportable 08/30/21 03:22 Platelet Satelliting Not Reportable 08/30/21 03:22 Plt Morphology Comment Not Reportable 05/16/22 03:22 RBC Morphology Normal 08/30/21 03:22 Dimorphic RBCs Not Reportable 08/30/21 03:22 Polychromasia Not Reportable 08/30/21 03:22 Hypochromasia Not Reportable 08/30/21 03:22 Poikilocytosis Not Reportable 08/30/21 03:22 Anisocytosis Not Reportable 08/30/21 03:22 Microcytosis Not Reportable 08/30/21 03:22 Macrocytosis Not Reportable 08/30/21 03:22 Spherocytes Not Reportable 08/30/21 03:22 Pappenheimer Bodies Not Reportable 08/30/21 03:22 Sickle Cells Not Reportable 08/30/21 03:22 Target Cells Not Reportable 08/30/21 03:22 Tear Drop Cells Not Reportable 08/30/21 03:22 Ovalocytes Not Reportable 08/30/21 03:22 Helmet Cells Not Reportable 08/30/21 03:22 [place] Bodies Not Reportable 08/30/21 03:22 [place] Rings Not Reportable 08/30/21 03:22 Caprice Cells Not Reportable 08/30/21 03:22 Bite Cells Not Reportable 08/30/21 03:22 Crenated Cell Not Reportable 08/30/21 03:22 Elliptocytes Not Reportable 08/30/21 03:22 Acanthocytes (Spur) Not Reportable 08/30/21 03:22 Rouleaux Not Reportable 08/30/21 03:22 Hemoglobin C Crystals Not Reportable 08/30/21 03:22 Schistocytes Not Reportable 08/30/21 03:22 Malaria parasites Not Reportable 08/30/21 03:22 Marco Bodies Not Reportable 08/30/21 03:22 Hem Pathologist Commnt No 08/30/21 03:22 PT 12.8 Sec. (12.2-14.9) 08/19/21 02:24 INR 0.87 (0.87-1.13) 08/19/21 02:24 APTT 20.0 Sec. (24.2-36.6) L 08/19/21 02:24 ABG pH 7.516 pH Units (7.350-7.450) H 08/27/21 03:56 POC ABG pCO2 30.1 mmHg (32.0-48.0) L 08/22/21 10:16 ABG pCO2 34.4 mm Hg 08/27/21 03:56 POC ABG pO2 109.5 mmHg (83-108) H 08/22/21 10:16 ABG pO2 117.0 mm Hg (80.0-90.0) H 08/27/21 03:56 POC ABG HCO3 23.5 08/22/21 10:16 ABG HCO3 27.2 mmol/L (20.0-26.0) H 08/27/21 03:56 ABG O2 Saturation 98.4 % (95.0-99.0) 08/27/21 03:56 ABG O2 Content 15.3 (0.0-44) 08/27/21 03:56 POC ABG Base Excess 1.2 08/22/21 10:16 ABG Base Excess 4.3 mmol/L (-2.0-3.0) H 08/27/21 03:56 ABG Hemoglobin 11.1 gm/dl (12.0-16.0) L 08/27/21 03:56 ABG Oxyhemoglobin 96.8 (94-98) 08/22/21 10:16 ABG Carboxyhemoglobin 1.0 % (0.0-5.0) 08/27/21 03:56 ABG Methemoglobin 0.5 % (0.0-1.5) 08/27/21 03:56 ABG Sodium Not Reportable 08/22/21 10:16 ABG Potassium Not Reportable 08/22/21 10:16 ABG Chloride Not Reportable 08/22/21 10:16 ABG Glucose Not Reportable 08/22/21 10:16 Oxyhemoglobin 96.9 % (95.0-99.0) 08/27/21 03:56 Carboxyhemoglobin 1.1 (0.5-1.5) 08/22/21 10:16 FiO2 40 % 08/27/21 03:56 FiO2 % 30.0 08/22/21 10:16 Sodium 136 mmol/L (137-145) L 09/07/21 06:00 Potassium 3.9 mmol/L (3.6-5.0) 09/07/21 06:00 Chloride 98.0 mmol/L (98-107) 09/07/21 06:00 Carbon Dioxide 28 mmol/L (22-30) D 09/07/21 06:00 Anion Gap 14 mmol/L 09/07/21 06:00 BUN 11 mg/dL (7-17) 09/07/21 06:00 Creatinine 0.6 mg/dL (0.6-1.2) 09/07/21 06:00 Estimated GFR > 60 ml/min 09/07/21 06:00 BUN/Creatinine Ratio 18 % 09/07/21 06:00 Glucose 111 mg/dL (65-100) H 09/07/21 06:00 POC Glucose 110 mg/dL (70-105) H 09/07/21 04:47 Calcium 10.3 mg/dL (8.4-10.2) H 09/07/21 06:00 Phosphorus 3.30 mg/dL (2.5-4.5) D 09/06/21 04:00 Magnesium 2.00 mg/dL (1.7-2.3) 09/06/21 04:00 Total Bilirubin 0.30 mg/dL (0.1-1.2) 09/04/21 04:15 AST 19 units/L (5-40) 09/04/21 04:15 ALT 16 units/L (7-56) 09/04/21 04:15 Alkaline Phosphatase 102 units/L (35-129) 09/04/21 04:15 C-Reactive Protein 29.40 mg/dL (0.00-1.30) H 09/02/21 04:08 Total Protein 6.6 g/dL (6.3-8.2) 09/04/21 04:15 Albumin 2.4 g/dL (3.9-5) L 09/04/21 04:15 Albumin/Globulin Ratio 0.6 % 09/04/21 04:15 Triglycerides 200 mg/dL (2-149) H 08/27/21 04:25 Procalcitonin 1.34 ng/mL (<0.15) 09/02/21 04:08 Arterial Blood Glucose Not Reportable 08/22/21 10:16 Nasal Screen MRSA (PCR) Negative (Negative) 09/01/21 12:15 Blood Type A POSITIVE 08/21/21 15:10 Microbiology: Microbiology 09/01/21 07:34 Peripheral/Venous Blood Culture - Final NO GROWTH AFTER 5 DAYS 09/01/21 07:34 Peripheral/Venous Blood Culture - Final NO GROWTH AFTER 5 DAYS Lewis/IV: Voiding Method Indwelling Catheter Active Medications - Current Medications Current Medications: Generic Name Dose Route Start Last Admin Trade Name Freq PRN Reason Stop Dose Admin Acetaminophen 650 mg 08/19/21 06:00 09/02/21 14:20 Acetaminophen 325 Mg Tab FEEDTUBE 650 mg Q4H PRN Administration Fever >100.5/SAEED/MILD PAIN 1-3 Albuterol 2.5 mg 08/19/21 04:50 Albuterol 2.5 Mg/3 Ml Nebu IH Q3HRT PRN Shortness Of Breath Atorvastatin Calcium 10 mg 09/05/21 22:00 09/06/21 22:14 Atorvastatin 10 Mg Tab FEEDTUBE 10 mg QHS WARD Administration Buspirone HCl 10 mg 09/05/21 10:00 09/06/21 22:14 Buspirone 10 Mg Tab FEEDTUBE 10 mg BID WARD Administration Dextrose 50 ml 08/20/21 10:00 09/03/21 12:34 Dextrose 50% In Water (25gm) 50 Ml Syringe IV 15 ml Q30MIN PRN Administration Hypoglycemia Protocol Folic Acid 1 mg 09/05/21 10:00 09/06/21 09:09 Folic Acid 1 Mg Tab FEEDTUBE 1 mg QDAY WARD Administration Haloperidol Lactate 5 mg 08/29/21 09:58 09/03/21 17:39 Haloperidol Lactate 5 Mg/1 Ml Inj IV 5 mg Q6H PRN Administration Agitation Heparin Sodium (Porcine) 5,000 unit 08/19/21 10:00 09/06/21 22:15 Heparin 5,000 Unit/1 Ml Vial SUB-Q 5,000 unit Q12HR WARD Administration Hydralazine HCl 10 mg 08/19/21 05:03 08/24/21 18:09 Hydralazine 20 Mg/1 Ml Inj IV 10 mg Q6H PRN Administration SBP >/=160; DBP >/=100 Fluconazole 200 mg in 100 mls @ 100 mls/hr 09/01/21 20:00 09/06/21 20:50 Diflucan IV 09/14/21 20:59 100 mls/hr Q24H WARD Administration Protocol Insulin Human Regular 0 units 08/20/21 12:00 09/07/21 05:19 Insulin Regular, Human 100 Units/1 Ml SUB-Q Not Given Q6H [facility] Protocol Lorazepam 0.25 mg 09/05/21 14:41 09/06/21 22:35 Lorazepam 0.5 Mg Tab FEEDTUBE 0.25 mg BID PRN Administration Agitation Mineral Oil 133 ml 09/05/21 08:49 Mineral Oil Enema 133 Ml [place] QDAY PRN Constipation Ondansetron HCl 4 mg 08/19/21 04:50 Ondansetron 4 Mg/2 Ml Inj IV Q8H PRN Nausea And Vomiting Senna 8.8 mg 09/05/21 22:00 09/06/21 22:15 Sennosides Oral Liqd 8.8 Mg/5 Ml Oral Liqd FEEDTUBE 8.8 mg QHS WARD Administration Sodium Chloride 10 ml 08/19/21 10:00 09/06/21 22:15 Sodium Chloride 0.9% 10 Ml Flush Syringe IV 10 ml BID WARD Administration Sodium Chloride 10 ml 08/19/21 04:50 Sodium Chloride 0.9% 10 Ml Flush Syringe IV PRN PRN LINE FLUSH Sucralfate 1 gm 09/05/21 12:00 09/07/21 06:21 Sucralfate 1 Gm/10 Ml Oral Liqd FEEDTUBE 1 gm Q6HR WARD Administration Thiamine HCl 100 mg 09/05/21 10:00 09/06/21 09:10 Thiamine 100 Mg Tab FEEDTUBE 100 mg QDAY WARD Administration Tramadol HCl 50 mg 09/05/21 14:42 09/06/21 22:34 Tramadol 50 Mg Tab FEEDTUBE 50 mg Q4H PRN Administration Pain, Moderate (4-6) Nutrition/Malnutrition Assess - Dietary Evaluation Nutrition/Malnutrition Findings: Nutrition Notes Start: 08/19/21 10:13 Freq: Status: Active Protocol: Document 09/06/21 14:58 ABRAHAM (Rec: 09/06/21 15:18 ABRAHAM [id number]) Nutrition Notes Initial or Follow up Brief Note Current Diagnosis Hypertension,Respiratory Failure Other Pertinent Diagnosis s/p PEG Placement,Angioedema, Urinary Retention, Hypothyroidism, Depression Current Diet TF-Glucerna 1.2 Dieudonne @ 45 ml/hr (since B 09/05). Height 4 ft 11 in Weight 74 kg [place] Body Weight (kg) 43.18 BMI 32.9 Weight change and time frame No body weight change reported in 12 days. Weight Status Obese Subjective/Other Information RD consult for routine F/U on resumed TF and tolerance. TF resumed on B 09/05 and continues as prescribed, well tolerated, according to Progress notes. Pt on Trach-Tube, O2 saturation @ 98%, according to Physical Assessmet History notes. Pt has produced multiple BM, according to Progress notes. Pt to be discharged to SNF, awaiting placemernt, according to Progress notes. Percent of energy/protein needs met: Prescribed TF-Glucerna 1.2 Dieudonne @ 45 ml/hr provides for energy/protein needs (1,269 Kcal/65 g) during LOS, 94% Kcal; 70% AA. #1 Nutrition Diagnosis Inadequate oral intake Diagnosis Progress(for reassessment Continues documentation) Is patient on ventilator? Yes Is Patient Ambulatory and/or Out of Bed No REE-([facility]-confined to bed) 1375.068 Kcal/Kg value to use for calculation 17 Approximate Energy Requirements Using 1258 kcal/Kg Calculation Used for Recommendations Kcal/kg Additional Notes Protein: 2 g/Kg IBW; 86 g/day. Fluids: 1 ml/Kcal, or as per MD. Nutrition Intervention Nutrition Support: Continue TF-Glucerna 1.2 Dieudonne @ 45 ml/hr. Flush: 70 ml water Q 4 hr, or as per MD. Kcal 1,269 Protein (gm) 65 Carbohydrates (gm) 124 Fat (gm) 65 Fluid (mL) 869 Fiber (gm) 17 % RDI: 94% Kcal; 70% AA. Goal #1 Provide at least 75% of energy /protein needs through Enteral Feeding during LOS. Goal #2 Maintain body weight within +/ -3% of admission body weight during LOS. Follow-Up By: 09/13/21 Additional Comments Continue monitoring, Ventilation status, TF tolerance and BM.
[2021-09-07] MEDS: FOLIC ACID 1 MG TAB FEEDTUBE SCH (10:03)
[2021-09-07] MEDS: HEPARIN 5,000 UNIT/1 ML VIAL SUB-Q SCH ×2 (10:03→21:06)
[2021-09-07] MEDS: busPIRone 10 MG TAB FEEDTUBE SCH ×2 (10:03→21:05)
[2021-09-07] MEDS: MULTIVITAMIN / MINERAL ORAL LIQUID 15 ML PO SCH (10:04)
[2021-09-07] MEDS: THIAMINE 100 MG TAB FEEDTUBE SCH (10:04)
--- NOTE | 2021-09-07 10:04 | Progress Note ---
Assessment and Plan 76 y/o female with acute respiratory failure secondary to angioedema 09/07/21: Stable pulm status, hopefully placement is being pursued. Will continue to follow. Stable for transfer pulm riddle when bed available 09/06/21: Continue T-piece. Continue feeds. 09/05/21: Feeding patient and tolerating. No TPN needed right now. Change meds back to PO. Stable for transfer to floor. 09/04/21: Will ask surgery how they feel about possibly downsizing trach to a 6 cuffed. patient not intubated for lung reasons, all upper airway issues. If so then could have speech assess with PMV and possible swallow eval. If tolerated 6 and 4 is need could go to that faster and then have speech see again. Goal of this is to have her on TPN for as little time as possible. Follow up surgery recs after they see patient today. Guarded prognosis. 09/03/21: Enema today. Await surgery eval and recs. Continue T-piece and only rest on PSV if absolutely needed. Abx per ID 09/02/21: Resume feeding today. Tolerating PSV trial, if continues will attempt T-piece tomorrow. Restart Heparin. Guarded prognosis. Back on Diflucan 09/01/21: Hold on any weaning today. Hold heparin for 24 hours. Surgery spoke with IR, they will attempt to replace peg tube. Changed as many meds to IV as possible. ID has now been consulted so will defer all abx therapy to them. Guarded prognosis, family not at bedside this am. 08/31/21: Dropped PSV to 10/6, if tolerates then in a few hours place on T- piece. Rest on PSV tonight. Then 24 hours of T-piece tomorrow. Most likely transfer out of unit on . Will discuss urine situation with nursing staff. Voided and has had no issues so will not place lewis. Spiked a temp. Repeat cultures with next temperature spike and will start on Diflucan empirically for oral candidiasis. 08/30/21: Start bladder training q4 hours. All cultures negative thus far and no further temps. Given Mag Citrate today, if no BM in the next 24, will start some scheduled lactulose. Continue PSV as tolerated. 08/29/21: Agree with hernandez culture, hold on abx, remove lewis. Repeat CXR. Per nursing has not had bowel movement in at least 4 days. Check KUB. PSV trials to start soon 08/28/21: would like to get patient off of continuous sedation so will scheduled tramadol therapy with hopes of weaning Fent Drip. Will order fent 50Q2 PRN pain to help with this as well. Will likely need to be placed on bowel regimen to prevent constipation. Once off continuous drips, can start PSV trials. 08/27/21: Start using peg. Continue PRN fent pushes and will add PRN tramadol as well. Wean sedation off. Can start PSV trials as early as tomorrow. 1. Agree with IV steroids 2. Suggest adding scheduled benadryl and pepcid 3. If swelling does not improve in the next 24-48 hours, suggest a trial of FFP 4. Wean FiO2 for sats > 88% CCT 31 minutes Subjective Date of service: 09/07/21 Interval history: No acute events. Stable pulm status. Objective Vital Signs - 12hr 09/06/21 09/07/21 09/07/21 22:46 00:40 03:20 Temperature 98.2 F Pulse Rate Respiratory Rate Blood Pressure O2 Sat by Pulse Oximetry O2 Sat by Pulse 99 98 Oximetry [ Assessment] 09/07/21 09/07/21 09/07/21 04:00 06:00 08:13 Temperature 98.1 F Pulse Rate 93 H 81 79 Respiratory 18 16 Rate Blood Pressure 139/88 127/79 O2 Sat by Pulse 98 98 100 Oximetry O2 Sat by Pulse Oximetry [ Assessment] 09/07/21 09/07/21 08:18 08:57 Temperature Pulse Rate Respiratory Rate Blood Pressure O2 Sat by Pulse 98 97 Oximetry O2 Sat by Pulse Oximetry [ Assessment] Constitutional: no acute distress, other (Sedated) ENT: other (orally intubated, macroglossia) Neck: supple, no lymphadenopathy Effort: other (Supported on ventilator) Ascultation: Bilateral: clear Percussion: Bilateral: not dull Cardiovascular: regular rate and rhythm Gastrointestinal: normoactive bowel sounds Extremities: no cyanosis, no edema, pink and warm Neurologic: other (Sedated) Psychiatric: other (Sedated) CBC and BMP: 09/07/21 06:00 09/07/21 06:00 ABG, PT/INR, D-dimer: ABG ABG pH 7.516 pH Units (7.350-7.450) H 08/27/21 03:56 POC ABG pCO2 30.1 mmHg (32.0-48.0) L 08/22/21 10:16 ABG pCO2 34.4 mm Hg 08/27/21 03:56 POC ABG pO2 109.5 mmHg (83-108) H 08/22/21 10:16 ABG pO2 117.0 mm Hg (80.0-90.0) H 08/27/21 03:56 POC ABG HCO3 23.5 08/22/21 10:16 ABG O2 Saturation 98.4 % (95.0-99.0) 08/27/21 03:56 PT/INR, D-dimer PT 12.8 Sec. (12.2-14.9) 08/19/21 02:24 INR 0.87 (0.87-1.13) 08/19/21 02:24 Abnormal lab findings: Abnormal Labs 08/19/21 08/19/21 08/19/21 02:24 02:24 02:24 WBC 13.9 H RBC Hgb Hct MCV 98 H MCH 33 H RDW 15.7 H Eos % (Auto) Eos # (Auto) Seg Neuts % (Manual) Lymphocytes % (Manual) 52.0 H Seg Neutrophils # Man Lymphocytes # (Manual) 7.2 H APTT 20.0 L ABG pH POC ABG pCO2 POC ABG pO2 ABG pO2 ABG HCO3 ABG O2 Saturation ABG Base Excess ABG Hemoglobin Oxyhemoglobin Sodium Potassium 3.3 L Chloride Carbon Dioxide 20 L BUN Creatinine Glucose 143 H POC Glucose Calcium Phosphorus Magnesium C-Reactive Protein Total Protein 8.3 H Albumin Triglycerides 08/19/21 08/19/21 08/19/21 06:15 10:20 11:10 WBC RBC Hgb Hct MCV MCH RDW Eos % (Auto) Eos # (Auto) Seg Neuts % (Manual) Lymphocytes % (Manual) Seg Neutrophils # Man Lymphocytes # (Manual) APTT ABG pH 7.465 H 7.503 H POC ABG pCO2 POC ABG pO2 ABG pO2 177.7 H 90.5 H ABG HCO3 ABG O2 Saturation 99.2 H ABG Base Excess ABG Hemoglobin Oxyhemoglobin Sodium Potassium Chloride Carbon Dioxide BUN Creatinine Glucose POC Glucose 171 H Calcium Phosphorus Magnesium C-Reactive Protein Total Protein Albumin Triglycerides 08/19/21 08/20/21 08/20/21 16:33 00:03 04:25 WBC RBC Hgb Hct MCV 98 H MCH 33 H RDW 15.9 H Eos % (Auto) Eos # (Auto) Seg Neuts % (Manual) 83.0 H Lymphocytes % (Manual) Seg Neutrophils # Man Lymphocytes # (Manual) APTT ABG pH POC ABG pCO2 POC ABG pO2 ABG pO2 ABG HCO3 ABG O2 Saturation ABG Base Excess ABG Hemoglobin Oxyhemoglobin Sodium Potassium Chloride Carbon Dioxide BUN Creatinine Glucose POC Glucose 179 H 133 H Calcium Phosphorus Magnesium C-Reactive Protein Total Protein Albumin Triglycerides 08/20/21 08/20/21 08/20/21 04:25 04:30 05:39 WBC RBC Hgb Hct MCV MCH RDW Eos % (Auto) Eos # (Auto) Seg Neuts % (Manual) Lymphocytes % (Manual) Seg Neutrophils # Man Lymphocytes # (Manual) APTT ABG pH POC ABG pCO2 POC ABG pO2 ABG pO2 95.5 H ABG HCO3 ABG O2 Saturation ABG Base Excess -2.2 L ABG Hemoglobin Oxyhemoglobin Sodium Potassium Chloride Carbon Dioxide 21 L BUN Creatinine Glucose 143 H POC Glucose 168 H Calcium 8.2 L Phosphorus Magnesium C-Reactive Protein Total Protein Albumin Triglycerides 08/20/21 08/20/21 08/21/21 12:04 16:38 00:12 WBC RBC Hgb Hct MCV MCH RDW Eos % (Auto) Eos # (Auto) Seg Neuts % (Manual) Lymphocytes % (Manual) Seg Neutrophils # Man Lymphocytes # (Manual) APTT ABG pH POC ABG pCO2 POC ABG pO2 ABG pO2 ABG HCO3 ABG O2 Saturation ABG Base Excess ABG Hemoglobin Oxyhemoglobin Sodium Potassium Chloride Carbon Dioxide BUN Creatinine Glucose POC Glucose 151 H 135 H 123 H Calcium Phosphorus Magnesium C-Reactive Protein Total Protein Albumin Triglycerides 08/21/21 08/21/21 08/21/21 04:58 04:58 04:59 WBC RBC 3.64 L Hgb Hct MCV 100 H MCH RDW 16.4 H Eos % (Auto) Eos # (Auto) Seg Neuts % (Manual) Lymphocytes % (Manual) Seg Neutrophils # Man Lymphocytes # (Manual) APTT ABG pH POC ABG pCO2 POC ABG pO2 ABG pO2 ABG HCO3 ABG O2 Saturation ABG Base Excess -2.6 L ABG Hemoglobin 11.6 L Oxyhemoglobin Sodium Potassium 3.5 L Chloride 109.5 H Carbon Dioxide 19 L BUN Creatinine Glucose 159 H POC Glucose Calcium 8.3 L Phosphorus Magnesium C-Reactive Protein Total Protein Albumin Triglycerides 08/21/21 08/21/21 08/21/21 05:22 11:21 16:29 WBC RBC Hgb Hct MCV MCH RDW Eos % (Auto) Eos # (Auto) Seg Neuts % (Manual) Lymphocytes % (Manual) Seg Neutrophils # Man Lymphocytes # (Manual) APTT ABG pH POC ABG pCO2 POC ABG pO2 ABG pO2 ABG HCO3 ABG O2 Saturation ABG Base Excess ABG Hemoglobin Oxyhemoglobin Sodium Potassium Chloride Carbon Dioxide BUN Creatinine Glucose POC Glucose 143 H 133 H 122 H Calcium Phosphorus Magnesium C-Reactive Protein Total Protein Albumin Triglycerides 08/22/21 08/22/21 08/22/21 00:03 03:54 03:54 WBC RBC 3.53 L Hgb Hct MCV 100 H MCH 33 H RDW 16.7 H Eos % (Auto) Eos # (Auto) Seg Neuts % (Manual) Lymphocytes % (Manual) Seg Neutrophils # Man Lymphocytes # (Manual) APTT ABG pH POC ABG pCO2 POC ABG pO2 ABG pO2 ABG HCO3 ABG O2 Saturation ABG Base Excess ABG Hemoglobin Oxyhemoglobin Sodium Potassium Chloride 107.5 H Carbon Dioxide BUN Creatinine Glucose 123 H POC Glucose 132 H Calcium Phosphorus Magnesium C-Reactive Protein Total Protein Albumin Triglycerides 08/22/21 08/22/21 08/22/21 04:40 06:08 10:16 WBC RBC Hgb Hct MCV MCH RDW Eos % (Auto) Eos # (Auto) Seg Neuts % (Manual) Lymphocytes % (Manual) Seg Neutrophils # Man Lymphocytes # (Manual) APTT ABG pH 7.454 H 7.511 H POC ABG pCO2 30.1 L POC ABG pO2 109.5 H ABG pO2 109.8 H ABG HCO3 ABG O2 Saturation ABG Base Excess ABG Hemoglobin Oxyhemoglobin Sodium Potassium Chloride Carbon Dioxide BUN Creatinine Glucose POC Glucose 137 H Calcium Phosphorus Magnesium C-Reactive Protein Total Protein Albumin Triglycerides 08/22/21 08/22/21 08/22/21 10:27 10:27 11:13 WBC RBC Hgb Hct MCV 99 H MCH RDW 16.6 H Eos % (Auto) Eos # (Auto) Seg Neuts % (Manual) Lymphocytes % (Manual) Seg Neutrophils # Man Lymphocytes # (Manual) APTT ABG pH POC ABG pCO2 POC ABG pO2 ABG pO2 ABG HCO3 ABG O2 Saturation ABG Base Excess ABG Hemoglobin Oxyhemoglobin Sodium Potassium Chloride Carbon Dioxide BUN Creatinine Glucose 129 H POC Glucose 125 H Calcium Phosphorus Magnesium C-Reactive Protein Total Protein Albumin Triglycerides 08/22/21 08/23/21 08/23/21 23:39 04:11 04:11 WBC RBC Hgb Hct MCV 98 H MCH 33 H RDW 16.1 H Eos % (Auto) Eos # (Auto) Seg Neuts % (Manual) Lymphocytes % (Manual) Seg Neutrophils # Man Lymphocytes # (Manual) APTT ABG pH POC ABG pCO2 POC ABG pO2 ABG pO2 ABG HCO3 ABG O2 Saturation ABG Base Excess ABG Hemoglobin Oxyhemoglobin Sodium Potassium Chloride Carbon Dioxide BUN Creatinine Glucose 148 H POC Glucose 117 H Calcium Phosphorus Magnesium C-Reactive Protein Total Protein Albumin Triglycerides 08/23/21 08/23/21 08/23/21 05:32 11:02 18:04 WBC RBC Hgb Hct MCV MCH RDW Eos % (Auto) Eos # (Auto) Seg Neuts % (Manual) Lymphocytes % (Manual) Seg Neutrophils # Man Lymphocytes # (Manual) APTT ABG pH POC ABG pCO2 POC ABG pO2 ABG pO2 ABG HCO3 ABG O2 Saturation ABG Base Excess ABG Hemoglobin Oxyhemoglobin Sodium Potassium Chloride Carbon Dioxide BUN Creatinine Glucose POC Glucose 173 H 146 H 129 H Calcium Phosphorus Magnesium C-Reactive Protein Total Protein Albumin Triglycerides 08/24/21 08/24/21 08/24/21 00:27 05:20 06:00 WBC RBC Hgb Hct MCV MCH RDW Eos % (Auto) Eos # (Auto) Seg Neuts % (Manual) Lymphocytes % (Manual) Seg Neutrophils # Man Lymphocytes # (Manual) APTT ABG pH 7.481 H POC ABG pCO2 POC ABG pO2 ABG pO2 95.8 H ABG HCO3 29.8 H ABG O2 Saturation ABG Base Excess 5.8 H ABG Hemoglobin Oxyhemoglobin Sodium Potassium Chloride Carbon Dioxide BUN Creatinine Glucose POC Glucose 146 H 159 H Calcium Phosphorus Magnesium C-Reactive Protein Total Protein Albumin Triglycerides 05/02/0508/25/21 08/25/21 11:37 05:13 11:38 WBC RBC Hgb Hct MCV MCH RDW Eos % (Auto) Eos # (Auto) Seg Neuts % (Manual) Lymphocytes % (Manual) Seg Neutrophils # Man Lymphocytes # (Manual) APTT ABG pH POC ABG pCO2 POC ABG pO2 ABG pO2 ABG HCO3 ABG O2 Saturation ABG Base Excess ABG Hemoglobin Oxyhemoglobin Sodium Potassium Chloride Carbon Dioxide BUN Creatinine Glucose POC Glucose 154 H 121 H 135 H Calcium Phosphorus Magnesium C-Reactive Protein Total Protein Albumin Triglycerides 08/25/21 08/25/21 08/26/21 16:00 17:12 00:04 WBC RBC Hgb Hct MCV MCH RDW Eos % (Auto) Eos # (Auto) Seg Neuts % (Manual) Lymphocytes % (Manual) Seg Neutrophils # Man Lymphocytes # (Manual) APTT ABG pH POC ABG pCO2 POC ABG pO2 ABG pO2 78.3 L ABG HCO3 32.7 H ABG O2 Saturation ABG Base Excess 6.3 H ABG Hemoglobin 11.0 L Oxyhemoglobin 93.9 L Sodium Potassium Chloride Carbon Dioxide BUN Creatinine Glucose POC Glucose 179 H 140 H Calcium Phosphorus Magnesium C-Reactive Protein Total Protein Albumin Triglycerides 08/26/21 08/26/21 08/26/21 04:22 04:59 04:59 WBC 12.9 H RBC 3.54 L Hgb Hct MCV MCH RDW 15.6 H Eos % (Auto) Eos # (Auto) Seg Neuts % (Manual) Lymphocytes % (Manual) Seg Neutrophils # Man Lymphocytes # (Manual) APTT ABG pH 7.533 H POC ABG pCO2 POC ABG pO2 ABG pO2 76.9 L ABG HCO3 29.2 H ABG O2 Saturation ABG Base Excess 6.4 H ABG Hemoglobin 11.6 L Oxyhemoglobin Sodium Potassium 3.5 L Chloride Carbon Dioxide BUN 28 H Creatinine Glucose 139 H POC Glucose Calcium Phosphorus Magnesium C-Reactive Protein Total Protein Albumin Triglycerides 08/26/21 08/26/21 08/26/21 05:34 11:21 16:52 WBC RBC Hgb Hct MCV MCH RDW Eos % (Auto) Eos # (Auto) Seg Neuts % (Manual) Lymphocytes % (Manual) Seg Neutrophils # Man Lymphocytes # (Manual) APTT ABG pH POC ABG pCO2 POC ABG pO2 ABG pO2 ABG HCO3 ABG O2 Saturation ABG Base Excess ABG Hemoglobin Oxyhemoglobin Sodium Potassium Chloride Carbon Dioxide BUN Creatinine Glucose POC Glucose 152 H 145 H 151 H Calcium Phosphorus Magnesium C-Reactive Protein Total Protein Albumin Triglycerides 08/27/21 08/27/21 08/27/21 03:56 04:25 04:25 WBC 12.4 H RBC 3.39 L Hgb Hct MCV 98 H MCH RDW 15.8 H Eos % (Auto) Eos # (Auto) Seg Neuts % (Manual) Lymphocytes % (Manual) Seg Neutrophils # Man Lymphocytes # (Manual) APTT ABG pH 7.516 H POC ABG pCO2 POC ABG pO2 ABG pO2 117.0 H ABG HCO3 27.2 H ABG O2 Saturation ABG Base Excess 4.3 H ABG Hemoglobin 11.1 L Oxyhemoglobin Sodium Potassium Chloride Carbon Dioxide BUN 27 H Creatinine Glucose POC Glucose Calcium Phosphorus 2.10 L Magnesium 2.50 H C-Reactive Protein Total Protein Albumin Triglycerides 08/27/21 08/27/21 08/27/21 04:25 17:31 23:37 WBC RBC Hgb Hct MCV MCH RDW Eos % (Auto) Eos # (Auto) Seg Neuts % (Manual) Lymphocytes % (Manual) Seg Neutrophils # Man Lymphocytes # (Manual) APTT ABG pH POC ABG pCO2 POC ABG pO2 ABG pO2 ABG HCO3 ABG O2 Saturation ABG Base Excess ABG Hemoglobin Oxyhemoglobin Sodium Potassium Chloride Carbon Dioxide BUN Creatinine Glucose POC Glucose 111 H 122 H Calcium Phosphorus Magnesium C-Reactive Protein Total Protein Albumin Triglycerides 200 H 08/28/21 08/28/21 08/28/21 04:11 04:11 05:01 WBC 17.2 H RBC 3.29 L Hgb Hct MCV 99 H MCH RDW 16.2 H Eos % (Auto) Eos # (Auto) Seg Neuts % (Manual) Lymphocytes % (Manual) Seg Neutrophils # Man Lymphocytes # (Manual) APTT ABG pH POC ABG pCO2 POC ABG pO2 ABG pO2 ABG HCO3 ABG O2 Saturation ABG Base Excess ABG Hemoglobin Oxyhemoglobin Sodium Potassium Chloride 109.2 H Carbon Dioxide BUN 22 H Creatinine Glucose 137 H POC Glucose 133 H Calcium Phosphorus Magnesium C-Reactive Protein Total Protein Albumin Triglycerides 08/28/21 08/28/21 08/29/21 11:18 17:34 00:37 WBC RBC Hgb Hct MCV MCH RDW Eos % (Auto) Eos # (Auto) Seg Neuts % (Manual) Lymphocytes % (Manual) Seg Neutrophils # Man Lymphocytes # (Manual) APTT ABG pH POC ABG pCO2 POC ABG pO2 ABG pO2 ABG HCO3 ABG O2 Saturation ABG Base Excess ABG Hemoglobin Oxyhemoglobin Sodium Potassium Chloride Carbon Dioxide BUN Creatinine Glucose POC Glucose 144 H 131 H 125 H Calcium Phosphorus Magnesium C-Reactive Protein Total Protein Albumin Triglycerides 08/29/21 08/29/21 08/29/21 04:12 04:12 06:17 WBC 22.7 H RBC 3.35 L Hgb Hct MCV 98 H MCH RDW 16.0 H Eos % (Auto) Eos # (Auto) Seg Neuts % (Manual) Lymphocytes % (Manual) Seg Neutrophils # Man Lymphocytes # (Manual) APTT ABG pH POC ABG pCO2 POC ABG pO2 ABG pO2 ABG HCO3 ABG O2 Saturation ABG Base Excess ABG Hemoglobin Oxyhemoglobin Sodium Potassium Chloride Carbon Dioxide BUN 19 H Creatinine Glucose 121 H POC Glucose 117 H Calcium Phosphorus Magnesium C-Reactive Protein Total Protein Albumin Triglycerides 08/29/21 08/29/21 08/30/21 11:54 18:00 00:17 WBC RBC Hgb Hct MCV MCH RDW Eos % (Auto) Eos # (Auto) Seg Neuts % (Manual) Lymphocytes % (Manual) Seg Neutrophils # Man Lymphocytes # (Manual) APTT ABG pH POC ABG pCO2 POC ABG pO2 ABG pO2 ABG HCO3 ABG O2 Saturation ABG Base Excess ABG Hemoglobin Oxyhemoglobin Sodium Potassium Chloride Carbon Dioxide BUN Creatinine Glucose POC Glucose 123 H 117 H 115 H Calcium Phosphorus Magnesium C-Reactive Protein Total Protein Albumin Triglycerides 08/30/21 08/30/21 08/30/21 03:22 03:22 11:05 WBC 20.3 H RBC 3.29 L Hgb Hct MCV MCH RDW 15.6 H Eos % (Auto) Eos # (Auto) Seg Neuts % (Manual) 87.0 H Lymphocytes % (Manual) 10.0 L Seg Neutrophils # Man 17.7 H Lymphocytes # (Manual) APTT ABG pH POC ABG pCO2 POC ABG pO2 ABG pO2 ABG HCO3 ABG O2 Saturation ABG Base Excess ABG Hemoglobin Oxyhemoglobin Sodium Potassium Chloride Carbon Dioxide BUN 21 H Creatinine Glucose 129 H POC Glucose 110 H Calcium Phosphorus Magnesium C-Reactive Protein Total Protein Albumin Triglycerides 08/31/21 08/31/21 08/31/21 00:10 05:26 05:26 WBC 13.2 H RBC 3.28 L Hgb Hct MCV MCH RDW 15.9 H Eos % (Auto) Eos # (Auto) Seg Neuts % (Manual) Lymphocytes % (Manual) Seg Neutrophils # Man Lymphocytes # (Manual) APTT ABG pH POC ABG pCO2 POC ABG pO2 ABG pO2 ABG HCO3 ABG O2 Saturation ABG Base Excess ABG Hemoglobin Oxyhemoglobin Sodium Potassium Chloride Carbon Dioxide BUN 23 H Creatinine Glucose 123 H POC Glucose 138 H Calcium Phosphorus Magnesium C-Reactive Protein Total Protein Albumin Triglycerides 08/31/21 08/31/21 08/31/21 06:13 11:27 17:19 WBC RBC Hgb Hct MCV MCH RDW Eos % (Auto) Eos # (Auto) Seg Neuts % (Manual) Lymphocytes % (Manual) Seg Neutrophils # Man Lymphocytes # (Manual) APTT ABG pH POC ABG pCO2 POC ABG pO2 ABG pO2 ABG HCO3 ABG O2 Saturation ABG Base Excess ABG Hemoglobin Oxyhemoglobin Sodium Potassium Chloride Carbon Dioxide BUN Creatinine Glucose POC Glucose 135 H 149 H 152 H Calcium Phosphorus Magnesium C-Reactive Protein Total Protein Albumin Triglycerides 08/31/21 09/01/21 09/01/21 23:29 05:43 11:05 WBC RBC Hgb Hct MCV MCH RDW Eos % (Auto) Eos # (Auto) Seg Neuts % (Manual) Lymphocytes % (Manual) Seg Neutrophils # Man Lymphocytes # (Manual) APTT ABG pH POC ABG pCO2 POC ABG pO2 ABG pO2 ABG HCO3 ABG O2 Saturation ABG Base Excess ABG Hemoglobin Oxyhemoglobin Sodium Potassium Chloride Carbon Dioxide BUN Creatinine Glucose POC Glucose 121 H 119 H 113 H Calcium Phosphorus Magnesium C-Reactive Protein Total Protein Albumin Triglycerides 09/01/21 09/01/21 09/01/21 11:42 11:42 23:40 WBC 13.0 H RBC 3.38 L Hgb Hct MCV 98 H MCH RDW Eos % (Auto) Eos # (Auto) Seg Neuts % (Manual) Lymphocytes % (Manual) Seg Neutrophils # Man Lymphocytes # (Manual) APTT ABG pH POC ABG pCO2 POC ABG pO2 ABG pO2 ABG HCO3 ABG O2 Saturation ABG Base Excess ABG Hemoglobin Oxyhemoglobin Sodium Potassium Chloride Carbon Dioxide BUN 18 H Creatinine Glucose 111 H POC Glucose 139 H Calcium Phosphorus Magnesium C-Reactive Protein Total Protein Albumin Triglycerides 09/02/21 09/02/21 09/02/21 04:08 04:08 05:31 WBC RBC 3.30 L Hgb Hct MCV 98 H MCH 33 H RDW 15.6 H Eos % (Auto) Eos # (Auto) Seg Neuts % (Manual) Lymphocytes % (Manual) Seg Neutrophils # Man Lymphocytes # (Manual) APTT ABG pH POC ABG pCO2 POC ABG pO2 ABG pO2 ABG HCO3 ABG O2 Saturation ABG Base Excess ABG Hemoglobin Oxyhemoglobin Sodium 132 L Potassium Chloride Carbon Dioxide 20 L BUN Creatinine Glucose 131 H POC Glucose 124 H Calcium Phosphorus Magnesium C-Reactive Protein 29.40 H Total Protein Albumin Triglycerides 09/02/21 09/03/21 09/03/21 17:37 09:09 09:09 WBC 11.9 H RBC 2.99 L Hgb 9.5 L Hct 29.0 L MCV MCH RDW 15.6 H Eos % (Auto) Eos # (Auto) Seg Neuts % (Manual) Lymphocytes % (Manual) Seg Neutrophils # Man Lymphocytes # (Manual) APTT ABG pH POC ABG pCO2 POC ABG pO2 ABG pO2 ABG HCO3 ABG O2 Saturation ABG Base Excess ABG Hemoglobin Oxyhemoglobin Sodium 133 L Potassium Chloride Carbon Dioxide BUN 19 H Creatinine Glucose POC Glucose 108 H Calcium Phosphorus Magnesium C-Reactive Protein Total Protein Albumin Triglycerides 09/03/21 09/04/21 09/04/21 12:00 04:15 05:23 WBC RBC Hgb Hct MCV MCH RDW Eos % (Auto) Eos # (Auto) Seg Neuts % (Manual) Lymphocytes % (Manual) Seg Neutrophils # Man Lymphocytes # (Manual) APTT ABG pH POC ABG pCO2 POC ABG pO2 ABG pO2 ABG HCO3 ABG O2 Saturation ABG Base Excess ABG Hemoglobin Oxyhemoglobin Sodium 132 L Potassium 3.0 L Chloride Carbon Dioxide BUN Creatinine Glucose 113 H POC Glucose 64 L 109 H Calcium Phosphorus Magnesium C-Reactive Protein Total Protein Albumin 2.4 L Triglycerides 09/04/21 09/05/21 09/05/21 11:15 Unknown 23:59 WBC 12.1 H RBC 3.13 L Hgb 9.9 L Hct MCV MCH RDW Eos % (Auto) Eos # (Auto) Seg Neuts % (Manual) Lymphocytes % (Manual) Seg Neutrophils # Man Lymphocytes # (Manual) APTT ABG pH POC ABG pCO2 POC ABG pO2 ABG pO2 ABG HCO3 ABG O2 Saturation ABG Base Excess ABG Hemoglobin Oxyhemoglobin Sodium Potassium Chloride Carbon Dioxide BUN Creatinine Glucose 115 H POC Glucose 107 H Calcium Phosphorus Magnesium C-Reactive Protein Total Protein Albumin Triglycerides 09/06/21 09/06/21 09/06/21 04:00 04:00 05:38 WBC RBC 2.93 L Hgb 9.4 L Hct 28.6 L MCV 98 H MCH RDW 15.3 H Eos % (Auto) Eos # (Auto) Seg Neuts % (Manual) Lymphocytes % (Manual) Seg Neutrophils # Man Lymphocytes # (Manual) APTT ABG pH POC ABG pCO2 POC ABG pO2 ABG pO2 ABG HCO3 ABG O2 Saturation ABG Base Excess ABG Hemoglobin Oxyhemoglobin Sodium 135 L Potassium Chloride Carbon Dioxide 19 L BUN Creatinine 0.5 L Glucose 110 H POC Glucose 119 H Calcium Phosphorus Magnesium C-Reactive Protein Total Protein Albumin Triglycerides 09/06/21 09/06/21 09/06/21 12:04 16:13 23:42 WBC RBC Hgb Hct MCV MCH RDW Eos % (Auto) Eos # (Auto) Seg Neuts % (Manual) Lymphocytes % (Manual) Seg Neutrophils # Man Lymphocytes # (Manual) APTT ABG pH POC ABG pCO2 POC ABG pO2 ABG pO2 ABG HCO3 ABG O2 Saturation ABG Base Excess ABG Hemoglobin Oxyhemoglobin Sodium Potassium Chloride Carbon Dioxide BUN Creatinine Glucose POC Glucose 112 H 128 H 122 H Calcium Phosphorus Magnesium C-Reactive Protein Total Protein Albumin Triglycerides 09/07/21 09/07/21 09/07/21 04:47 06:00 06:00 WBC RBC 2.92 L Hgb 9.5 L Hct 28.2 L MCV MCH 33 H RDW Eos % (Auto) 5.7 H Eos # (Auto) 0.5 H Seg Neuts % (Manual) Lymphocytes % (Manual) Seg Neutrophils # Man Lymphocytes # (Manual) APTT ABG pH POC ABG pCO2 POC ABG pO2 ABG pO2 ABG HCO3 ABG O2 Saturation ABG Base Excess ABG Hemoglobin Oxyhemoglobin Sodium 136 L Potassium Chloride Carbon Dioxide BUN Creatinine Glucose 111 H POC Glucose 110 H Calcium 10.3 H Phosphorus Magnesium C-Reactive Protein Total Protein Albumin Triglycerides
[2021-09-07] MEDS: LEVOTHYROXINE 150 MCG TAB FEEDTUBE SCH (13:26)
[2021-09-07] MEDS: traMADol 50 MG TAB FEEDTUBE PRN (13:27)
[2021-09-07] MEDS: LORazepam 0.5 MG TAB FEEDTUBE PRN (13:27)
[2021-09-07] MEDS ORDERED: diphenhydrAMINE 50 MG/ML VIAL IV NR (14:26)
--- NOTE | 2021-09-07 18:06 | Progress Note ---
Assessment and Plan Cultures: 08/29/2021 blood culture: No growth 08/29/2021 tracheal aspirate culture: Usual respiratory david 09/01/2021 blood culture: In process 09/01/2021 tracheal aspirate culture: Usual respiratory david 09/02/2021 CRP 29.4 Procalcitonin 1.34 MRSA nasal PCR: Negative A/P: 76-year-old female with depression, hypothyroidism, HTN was admitted on 08/19/2021 with angioedema reportedly due to amlodipine. She was seen in the ER, intubated. She was extubated on 08/25/2021, developed stridor, was reintubated on 08/26/2021 and subsequently underwent tracheostomy and PEG tube placement: #Sepsis/SIRS, secondary to right lower lobe pneumonia, dislodged PEG tube: minimal pneumonia. Had removal of PEG tube, laparoscopic exploration, lysis of adhesions, staple closure of gastrostomy site on 09/01/2021. Also noted was possible esophageal candidiasis. #Angioedema #Acute respiratory failure: trach #Penicillin allergy Recs: -Continue levofloxacin x 5 days total -Continue fluconazole for presumed esophageal candidiasis, D6 of 14. Can be given PO to DARIEN Cedillo MD [facility] ([facility] O: [phone] F: [phone] Subjective Date of service: 09/07/21 Interval history: Afebrile, normal white count. Objective - Exam Narrative Exam: Physical Exam: Constitutional: Awake trached, Head, Ears, Nose: Normocephalic, atraumatic. External ears, nose normal Eyes: Conjunctivae/corneas clear. No icterus. No ptosis. Neck: Trach + Cardiovascular: S1, S2 + Respiratory: AE fair bilaterally GI: Soft, dressing + Musculoskeletal: No pedal edema, no cyanosis. Skin: No rash or abscess Hem/Lymphatic: No palpable cervical or supraclavicular nodes. No lymphangitis Psych: no agitation Neurological: trach, exam limited - Constitutional Vitals: Vital Signs Temp Pulse Resp BP Pulse Ox 98.1 F 96 H 16 135/89 94 09/07/21 08:13 09/07/21 16:14 09/07/21 16:14 09/07/21 16:14 09/07/21 16:14 Temperature -Last 24 Hours Temperature 98.1 F Temperature 98.2 F - Labs CBC & Chem 7: 09/07/21 06:00 09/07/21 06:00 Labs: Abnormal lab results 09/06/21 09/07/21 09/07/21 Range/Units 23:42 04:47 06:00 RBC 2.92 L (3.65-5.03) M/mm3 Hgb 9.5 L (10.1-14.3) gm/dl Hct 28.2 L (30.3-42.9) % MCH 33 H (28-32) pg Eos % (Auto) 5.7 H (0.0-4.3) % Eos # (Auto) 0.5 H (0.0-0.4) K/mm3 Sodium (137-145) mmol/L Glucose (65-100) mg/dL POC Glucose 122 H 110 H (70-105) mg/dL Calcium (8.4-10.2) mg/dL 09/07/21 09/07/21 09/07/21 Range/Units 06:00 12:14 16:13 RBC (3.65-5.03) M/mm3 Hgb (10.1-14.3) gm/dl Hct (30.3-42.9) % MCH (28-32) pg Eos % (Auto) (0.0-4.3) % Eos # (Auto) (0.0-0.4) K/mm3 Sodium 136 L (137-145) mmol/L Glucose 111 H (65-100) mg/dL POC Glucose 115 H 113 H (70-105) mg/dL Calcium 10.3 H (8.4-10.2) mg/dL
[2021-09-07] MEDS: FLUCONAZOLE 200 MG 200 MG/100 ML BAG IV SCH (21:03)
[2021-09-07] MEDS: SENNOSIDES ORAL LIQD 8.8 MG/5 ML ORAL LIQD FEEDTUBE SCH (21:05)
[2021-09-08] MEDS: SUCRALFATE 1 GM/10 ML ORAL LIQD FEEDTUBE SCH ×4 (00:30→18:21)
[2021-09-08] MEDS: LEVOTHYROXINE 150 MCG TAB FEEDTUBE SCH (06:11)
[2021-09-08] MEDS: INSULIN REGULAR, HUMAN 100 UNITS/1 ML SUB-Q SCH ×4 (06:38→17:26)
[2021-09-08] MEDS: THIAMINE 100 MG TAB FEEDTUBE SCH (09:06)
[2021-09-08] MEDS: HEPARIN 5,000 UNIT/1 ML VIAL SUB-Q SCH ×2 (09:06→21:50)
[2021-09-08] MEDS: MULTIVITAMIN / MINERAL ORAL LIQUID 15 ML PO SCH (09:07)
[2021-09-08] MEDS: FOLIC ACID 1 MG TAB FEEDTUBE SCH (09:07)
[2021-09-08] MEDS: busPIRone 10 MG TAB FEEDTUBE SCH ×2 (09:07→21:51)
[2021-09-08] MEDS: traMADol 50 MG TAB FEEDTUBE PRN (11:30)
[2021-09-08] MEDS: LORazepam 0.5 MG TAB FEEDTUBE PRN (11:33)
--- NOTE | 2021-09-08 12:34 | Progress Note ---
Assessment and Plan Cultures: 08/29/2021 blood culture: No growth 08/29/2021 tracheal aspirate culture: Usual respiratory david 09/01/2021 blood culture: In process 09/01/2021 tracheal aspirate culture: Usual respiratory david 09/02/2021 CRP 29.4 Procalcitonin 1.34 MRSA nasal PCR: Negative A/P: 76-year-old female with depression, hypothyroidism, HTN was admitted on 08/19/2021 with angioedema reportedly due to amlodipine. She was seen in the ER, intubated. She was extubated on 08/25/2021, developed stridor, was reintubated on 08/26/2021 and subsequently underwent tracheostomy and PEG tube placement: #Sepsis/SIRS, secondary to right lower lobe pneumonia, dislodged PEG tube: minimal pneumonia. Had removal of PEG tube, laparoscopic exploration, lysis of adhesions, staple closure of gastrostomy site on 09/01/2021. Also noted was possible esophageal candidiasis. #Angioedema #Acute respiratory failure: trach #Penicillin allergy Recs: -Completed levofloxacin 7 -Continue fluconazole for presumed esophageal candidiasis, D7 of 14. Can be given PO to DC ID will sign off. Please call questions. Wendy Cedillo MD [facility] ([facility] O: [phone] F: [phone] Subjective Date of service: 09/08/21 Interval history: Afebrile, normal white count. Remains on tracheostomy. Objective - Exam Narrative Exam: Physical Exam: Constitutional: Awake trached, Head, Ears, Nose: Normocephalic, atraumatic. External ears, nose normal Eyes: Conjunctivae/corneas clear. No icterus. No ptosis. Neck: Trach + Cardiovascular: S1, S2 + Respiratory: AE fair bilaterally GI: Soft, dressing + Musculoskeletal: No pedal edema, no cyanosis. Skin: No rash or abscess Hem/Lymphatic: No palpable cervical or supraclavicular nodes. No lymphangitis Psych: no agitation Neurological: trach, exam limited - Constitutional Vitals: Vital Signs Temp Pulse Resp BP Pulse Ox 97.1 F L 84 18 116/71 96 09/08/21 11:52 09/08/21 11:52 09/08/21 11:52 09/08/21 11:52 09/08/21 11:52 Temperature -Last 24 Hours Temperature 97.1 F Temperature 98.7 F Temperature 97.8 F - Labs CBC & Chem 7: 09/07/21 06:00 09/07/21 06:00 Labs: Abnormal lab results 09/07/21 09/07/21 09/08/21 Range/Units 16:13 23:38 05:11 POC Glucose 113 H 127 H 115 H (70-105) mg/dL 09/08/21 Range/Units 11:50 POC Glucose 108 H (70-105) mg/dL
--- NOTE | 2021-09-08 13:31 | Progress Note ---
Assessment and Plan 76 y/o female with acute respiratory failure secondary to angioedema 09/08/21: No new recs pulm riddle. continue trach care and wean FiO2 as tolerated. 09/07/21: Stable pulm status, hopefully placement is being pursued. Will continue to follow. Stable for transfer pulm riddle when bed available 09/06/21: Continue T-piece. Continue feeds. 09/05/21: Feeding patient and tolerating. No TPN needed right now. Change meds back to PO. Stable for transfer to floor. 09/04/21: Will ask surgery how they feel about possibly downsizing trach to a 6 cuffed. patient not intubated for lung reasons, all upper airway issues. If so then could have speech assess with PMV and possible swallow eval. If tolerated 6 and 4 is need could go to that faster and then have speech see again. Goal of this is to have her on TPN for as little time as possible. Follow up surgery recs after they see patient today. Guarded prognosis. 09/03/21: Enema today. Await surgery eval and recs. Continue T-piece and only rest on PSV if absolutely needed. Abx per ID 09/02/21: Resume feeding today. Tolerating PSV trial, if continues will attempt T-piece tomorrow. Restart Heparin. Guarded prognosis. Back on Diflucan 09/01/21: Hold on any weaning today. Hold heparin for 24 hours. Surgery spoke with IR, they will attempt to replace peg tube. Changed as many meds to IV as possible. ID has now been consulted so will defer all abx therapy to them. Guarded prognosis, family not at bedside this am. 08/31/21: Dropped PSV to 10/6, if tolerates then in a few hours place on T- piece. Rest on PSV tonight. Then 24 hours of T-piece tomorrow. Most likely transfer out of unit on . Will discuss urine situation with nursing staff. Voided and has had no issues so will not place lewis. Spiked a temp. Repeat cultures with next temperature spike and will start on Diflucan empirically for oral candidiasis. 08/30/21: Start bladder training q4 hours. All cultures negative thus far and no further temps. Given Mag Citrate today, if no BM in the next 24, will start some scheduled lactulose. Continue PSV as tolerated. 08/29/21: Agree with hernandez culture, hold on abx, remove lewis. Repeat CXR. Per nursing has not had bowel movement in at least 4 days. Check KUB. PSV trials to start soon 08/28/21: would like to get patient off of continuous sedation so will scheduled tramadol therapy with hopes of weaning Fent Drip. Will order fent 50Q2 PRN pain to help with this as well. Will likely need to be placed on bowel regimen to prevent constipation. Once off continuous drips, can start PSV trials. 08/27/21: Start using peg. Continue PRN fent pushes and will add PRN tramadol as well. Wean sedation off. Can start PSV trials as early as tomorrow. 1. Agree with IV steroids 2. Suggest adding scheduled benadryl and pepcid 3. If swelling does not improve in the next 24-48 hours, suggest a trial of FFP 4. Wean FiO2 for sats > 88% CCT 31 minutes Subjective Date of service: 09/08/21 Interval history: No acute events. Objective Vital Signs - 12hr 09/08/21 09/08/21 09/08/21 04:00 06:19 07:35 Temperature 97.8 F Pulse Rate 82 86 80 Respiratory 18 Rate Blood Pressure Blood Pressure 116/71 [Left] O2 Sat by Pulse 97 Oximetry 09/08/21 09/08/21 07:58 11:52 Temperature 98.7 F 97.1 F L Pulse Rate 87 84 Respiratory 16 18 Rate Blood Pressure 116/71 Blood Pressure 109/67 [Left] O2 Sat by Pulse 94 96 Oximetry Constitutional: no acute distress, other (Sedated) ENT: other (orally intubated, macroglossia) Neck: supple, no lymphadenopathy Effort: other (Supported on ventilator) Ascultation: Bilateral: clear Percussion: Bilateral: not dull Cardiovascular: regular rate and rhythm Gastrointestinal: normoactive bowel sounds Extremities: no cyanosis, no edema, pink and warm Neurologic: other (Sedated) Psychiatric: other (Sedated) CBC and BMP: 09/07/21 06:00 09/07/21 06:00 ABG, PT/INR, D-dimer: ABG ABG pH 7.516 pH Units (7.350-7.450) H 08/27/21 03:56 POC ABG pCO2 30.1 mmHg (32.0-48.0) L 08/22/21 10:16 ABG pCO2 34.4 mm Hg 08/27/21 03:56 POC ABG pO2 109.5 mmHg (83-108) H 08/22/21 10:16 ABG pO2 117.0 mm Hg (80.0-90.0) H 08/27/21 03:56 POC ABG HCO3 23.5 08/22/21 10:16 ABG O2 Saturation 98.4 % (95.0-99.0) 08/27/21 03:56 PT/INR, D-dimer PT 12.8 Sec. (12.2-14.9) 08/19/21 02:24 INR 0.87 (0.87-1.13) 08/19/21 02:24 Abnormal lab findings: Abnormal Labs 08/19/21 08/19/21 08/19/21 02:24 02:24 02:24 WBC 13.9 H RBC Hgb Hct MCV 98 H MCH 33 H RDW 15.7 H Eos % (Auto) Eos # (Auto) Seg Neuts % (Manual) Lymphocytes % (Manual) 52.0 H Seg Neutrophils # Man Lymphocytes # (Manual) 7.2 H APTT 20.0 L ABG pH POC ABG pCO2 POC ABG pO2 ABG pO2 ABG HCO3 ABG O2 Saturation ABG Base Excess ABG Hemoglobin Oxyhemoglobin Sodium Potassium 3.3 L Chloride Carbon Dioxide 20 L BUN Creatinine Glucose 143 H POC Glucose Calcium Phosphorus Magnesium C-Reactive Protein Total Protein 8.3 H Albumin Triglycerides 08/19/21 08/19/21 08/19/21 06:15 10:20 11:10 WBC RBC Hgb Hct MCV MCH RDW Eos % (Auto) Eos # (Auto) Seg Neuts % (Manual) Lymphocytes % (Manual) Seg Neutrophils # Man Lymphocytes # (Manual) APTT ABG pH 7.465 H 7.503 H POC ABG pCO2 POC ABG pO2 ABG pO2 177.7 H 90.5 H ABG HCO3 ABG O2 Saturation 99.2 H ABG Base Excess ABG Hemoglobin Oxyhemoglobin Sodium Potassium Chloride Carbon Dioxide BUN Creatinine Glucose POC Glucose 171 H Calcium Phosphorus Magnesium C-Reactive Protein Total Protein Albumin Triglycerides 08/19/21 08/20/2108/20/22 16:33 00:03 04:25 WBC RBC Hgb Hct MCV 98 H MCH 33 H RDW 15.9 H Eos % (Auto) Eos # (Auto) Seg Neuts % (Manual) 83.0 H Lymphocytes % (Manual) Seg Neutrophils # Man Lymphocytes # (Manual) APTT ABG pH POC ABG pCO2 POC ABG pO2 ABG pO2 ABG HCO3 ABG O2 Saturation ABG Base Excess ABG Hemoglobin Oxyhemoglobin Sodium Potassium Chloride Carbon Dioxide BUN Creatinine Glucose POC Glucose 179 H 133 H Calcium Phosphorus Magnesium C-Reactive Protein Total Protein Albumin Triglycerides 08/20/21 08/20/21 08/20/21 04:25 04:30 05:39 WBC RBC Hgb Hct MCV MCH RDW Eos % (Auto) Eos # (Auto) Seg Neuts % (Manual) Lymphocytes % (Manual) Seg Neutrophils # Man Lymphocytes # (Manual) APTT ABG pH POC ABG pCO2 POC ABG pO2 ABG pO2 95.5 H ABG HCO3 ABG O2 Saturation ABG Base Excess -2.2 L ABG Hemoglobin Oxyhemoglobin Sodium Potassium Chloride Carbon Dioxide 21 L BUN Creatinine Glucose 143 H POC Glucose 168 H Calcium 8.2 L Phosphorus Magnesium C-Reactive Protein Total Protein Albumin Triglycerides 08/20/21 08/20/21 08/21/21 12:04 16:38 00:12 WBC RBC Hgb Hct MCV MCH RDW Eos % (Auto) Eos # (Auto) Seg Neuts % (Manual) Lymphocytes % (Manual) Seg Neutrophils # Man Lymphocytes # (Manual) APTT ABG pH POC ABG pCO2 POC ABG pO2 ABG pO2 ABG HCO3 ABG O2 Saturation ABG Base Excess ABG Hemoglobin Oxyhemoglobin Sodium Potassium Chloride Carbon Dioxide BUN Creatinine Glucose POC Glucose 151 H 135 H 123 H Calcium Phosphorus Magnesium C-Reactive Protein Total Protein Albumin Triglycerides 08/21/21 08/21/21 08/21/21 04:58 04:58 04:59 WBC RBC 3.64 L Hgb Hct MCV 100 H MCH RDW 16.4 H Eos % (Auto) Eos # (Auto) Seg Neuts % (Manual) Lymphocytes % (Manual) Seg Neutrophils # Man Lymphocytes # (Manual) APTT ABG pH POC ABG pCO2 POC ABG pO2 ABG pO2 ABG HCO3 ABG O2 Saturation ABG Base Excess -2.6 L ABG Hemoglobin 11.6 L Oxyhemoglobin Sodium Potassium 3.5 L Chloride 109.5 H Carbon Dioxide 19 L BUN Creatinine Glucose 159 H POC Glucose Calcium 8.3 L Phosphorus Magnesium C-Reactive Protein Total Protein Albumin Triglycerides 08/21/21 08/21/21 08/21/21 05:22 11:21 16:29 WBC RBC Hgb Hct MCV MCH RDW Eos % (Auto) Eos # (Auto) Seg Neuts % (Manual) Lymphocytes % (Manual) Seg Neutrophils # Man Lymphocytes # (Manual) APTT ABG pH POC ABG pCO2 POC ABG pO2 ABG pO2 ABG HCO3 ABG O2 Saturation ABG Base Excess ABG Hemoglobin Oxyhemoglobin Sodium Potassium Chloride Carbon Dioxide BUN Creatinine Glucose POC Glucose 143 H 133 H 122 H Calcium Phosphorus Magnesium C-Reactive Protein Total Protein Albumin Triglycerides 08/22/21 08/22/21 08/22/21 00:03 03:54 03:54 WBC RBC 3.53 L Hgb Hct MCV 100 H MCH 33 H RDW 16.7 H Eos % (Auto) Eos # (Auto) Seg Neuts % (Manual) Lymphocytes % (Manual) Seg Neutrophils # Man Lymphocytes # (Manual) APTT ABG pH POC ABG pCO2 POC ABG pO2 ABG pO2 ABG HCO3 ABG O2 Saturation ABG Base Excess ABG Hemoglobin Oxyhemoglobin Sodium Potassium Chloride 107.5 H Carbon Dioxide BUN Creatinine Glucose 123 H POC Glucose 132 H Calcium Phosphorus Magnesium C-Reactive Protein Total Protein Albumin Triglycerides 08/22/21 08/22/21 08/22/21 04:40 06:08 10:16 WBC RBC Hgb Hct MCV MCH RDW Eos % (Auto) Eos # (Auto) Seg Neuts % (Manual) Lymphocytes % (Manual) Seg Neutrophils # Man Lymphocytes # (Manual) APTT ABG pH 7.454 H 7.511 H POC ABG pCO2 30.1 L POC ABG pO2 109.5 H ABG pO2 109.8 H ABG HCO3 ABG O2 Saturation ABG Base Excess ABG Hemoglobin Oxyhemoglobin Sodium Potassium Chloride Carbon Dioxide BUN Creatinine Glucose POC Glucose 137 H Calcium Phosphorus Magnesium C-Reactive Protein Total Protein Albumin Triglycerides 08/22/21 08/22/21 08/22/21 10:27 10:27 11:13 WBC RBC Hgb Hct MCV 99 H MCH RDW 16.6 H Eos % (Auto) Eos # (Auto) Seg Neuts % (Manual) Lymphocytes % (Manual) Seg Neutrophils # Man Lymphocytes # (Manual) APTT ABG pH POC ABG pCO2 POC ABG pO2 ABG pO2 ABG HCO3 ABG O2 Saturation ABG Base Excess ABG Hemoglobin Oxyhemoglobin Sodium Potassium Chloride Carbon Dioxide BUN Creatinine Glucose 129 H POC Glucose 125 H Calcium Phosphorus Magnesium C-Reactive Protein Total Protein Albumin Triglycerides 08/22/21 08/23/21 08/23/21 23:39 04:11 04:11 WBC RBC Hgb Hct MCV 98 H MCH 33 H RDW 16.1 H Eos % (Auto) Eos # (Auto) Seg Neuts % (Manual) Lymphocytes % (Manual) Seg Neutrophils # Man Lymphocytes # (Manual) APTT ABG pH POC ABG pCO2 POC ABG pO2 ABG pO2 ABG HCO3 ABG O2 Saturation ABG Base Excess ABG Hemoglobin Oxyhemoglobin Sodium Potassium Chloride Carbon Dioxide BUN Creatinine Glucose 148 H POC Glucose 117 H Calcium Phosphorus Magnesium C-Reactive Protein Total Protein Albumin Triglycerides 08/23/21 08/23/21 08/23/21 05:32 11:02 18:04 WBC RBC Hgb Hct MCV MCH RDW Eos % (Auto) Eos # (Auto) Seg Neuts % (Manual) Lymphocytes % (Manual) Seg Neutrophils # Man Lymphocytes # (Manual) APTT ABG pH POC ABG pCO2 POC ABG pO2 ABG pO2 ABG HCO3 ABG O2 Saturation ABG Base Excess ABG Hemoglobin Oxyhemoglobin Sodium Potassium Chloride Carbon Dioxide BUN Creatinine Glucose POC Glucose 173 H 146 H 129 H Calcium Phosphorus Magnesium C-Reactive Protein Total Protein Albumin Triglycerides 08/24/21 08/24/21 08/24/21 00:27 05:20 06:00 WBC RBC Hgb Hct MCV MCH RDW Eos % (Auto) Eos # (Auto) Seg Neuts % (Manual) Lymphocytes % (Manual) Seg Neutrophils # Man Lymphocytes # (Manual) APTT ABG pH 7.481 H POC ABG pCO2 POC ABG pO2 ABG pO2 95.8 H ABG HCO3 29.8 H ABG O2 Saturation ABG Base Excess 5.8 H ABG Hemoglobin Oxyhemoglobin Sodium Potassium Chloride Carbon Dioxide BUN Creatinine Glucose POC Glucose 146 H 159 H Calcium Phosphorus Magnesium C-Reactive Protein Total Protein Albumin Triglycerides 08/24/21 08/25/21 08/25/21 11:37 05:13 11:38 WBC RBC Hgb Hct MCV MCH RDW Eos % (Auto) Eos # (Auto) Seg Neuts % (Manual) Lymphocytes % (Manual) Seg Neutrophils # Man Lymphocytes # (Manual) APTT ABG pH POC ABG pCO2 POC ABG pO2 ABG pO2 ABG HCO3 ABG O2 Saturation ABG Base Excess ABG Hemoglobin Oxyhemoglobin Sodium Potassium Chloride Carbon Dioxide BUN Creatinine Glucose POC Glucose 154 H 121 H 135 H Calcium Phosphorus Magnesium C-Reactive Protein Total Protein Albumin Triglycerides 08/25/21 08/25/21 08/26/21 16:00 17:12 00:04 WBC RBC Hgb Hct MCV MCH RDW Eos % (Auto) Eos # (Auto) Seg Neuts % (Manual) Lymphocytes % (Manual) Seg Neutrophils # Man Lymphocytes # (Manual) APTT ABG pH POC ABG pCO2 POC ABG pO2 ABG pO2 78.3 L ABG HCO3 32.7 H ABG O2 Saturation ABG Base Excess 6.3 H ABG Hemoglobin 11.0 L Oxyhemoglobin 93.9 L Sodium Potassium Chloride Carbon Dioxide BUN Creatinine Glucose POC Glucose 179 H 140 H Calcium Phosphorus Magnesium C-Reactive Protein Total Protein Albumin Triglycerides 08/26/21 08/26/21 08/26/21 04:22 04:59 04:59 WBC 12.9 H RBC 3.54 L Hgb Hct MCV MCH RDW 15.6 H Eos % (Auto) Eos # (Auto) Seg Neuts % (Manual) Lymphocytes % (Manual) Seg Neutrophils # Man Lymphocytes # (Manual) APTT ABG pH 7.533 H POC ABG pCO2 POC ABG pO2 ABG pO2 76.9 L ABG HCO3 29.2 H ABG O2 Saturation ABG Base Excess 6.4 H ABG Hemoglobin 11.6 L Oxyhemoglobin Sodium Potassium 3.5 L Chloride Carbon Dioxide BUN 28 H Creatinine Glucose 139 H POC Glucose Calcium Phosphorus Magnesium C-Reactive Protein Total Protein Albumin Triglycerides 08/26/21 08/26/21 08/26/21 05:34 11:21 16:52 WBC RBC Hgb Hct MCV MCH RDW Eos % (Auto) Eos # (Auto) Seg Neuts % (Manual) Lymphocytes % (Manual) Seg Neutrophils # Man Lymphocytes # (Manual) APTT ABG pH POC ABG pCO2 POC ABG pO2 ABG pO2 ABG HCO3 ABG O2 Saturation ABG Base Excess ABG Hemoglobin Oxyhemoglobin Sodium Potassium Chloride Carbon Dioxide BUN Creatinine Glucose POC Glucose 152 H 145 H 151 H Calcium Phosphorus Magnesium C-Reactive Protein Total Protein Albumin Triglycerides 08/27/21 08/27/21 08/27/21 03:56 04:25 04:25 WBC 12.4 H RBC 3.39 L Hgb Hct MCV 98 H MCH RDW 15.8 H Eos % (Auto) Eos # (Auto) Seg Neuts % (Manual) Lymphocytes % (Manual) Seg Neutrophils # Man Lymphocytes # (Manual) APTT ABG pH 7.516 H POC ABG pCO2 POC ABG pO2 ABG pO2 117.0 H ABG HCO3 27.2 H ABG O2 Saturation ABG Base Excess 4.3 H ABG Hemoglobin 11.1 L Oxyhemoglobin Sodium Potassium Chloride Carbon Dioxide BUN 27 H Creatinine Glucose POC Glucose Calcium Phosphorus 2.10 L Magnesium 2.50 H C-Reactive Protein Total Protein Albumin Triglycerides 08/27/21 08/27/21 08/27/21 04:25 17:31 23:37 WBC RBC Hgb Hct MCV MCH RDW Eos % (Auto) Eos # (Auto) Seg Neuts % (Manual) Lymphocytes % (Manual) Seg Neutrophils # Man Lymphocytes # (Manual) APTT ABG pH POC ABG pCO2 POC ABG pO2 ABG pO2 ABG HCO3 ABG O2 Saturation ABG Base Excess ABG Hemoglobin Oxyhemoglobin Sodium Potassium Chloride Carbon Dioxide BUN Creatinine Glucose POC Glucose 111 H 122 H Calcium Phosphorus Magnesium C-Reactive Protein Total Protein Albumin Triglycerides 200 H 08/28/21 08/28/21 08/28/21 04:11 04:11 05:01 WBC 17.2 H RBC 3.29 L Hgb Hct MCV 99 H MCH RDW 16.2 H Eos % (Auto) Eos # (Auto) Seg Neuts % (Manual) Lymphocytes % (Manual) Seg Neutrophils # Man Lymphocytes # (Manual) APTT ABG pH POC ABG pCO2 POC ABG pO2 ABG pO2 ABG HCO3 ABG O2 Saturation ABG Base Excess ABG Hemoglobin Oxyhemoglobin Sodium Potassium Chloride 109.2 H Carbon Dioxide BUN 22 H Creatinine Glucose 137 H POC Glucose 133 H Calcium Phosphorus Magnesium C-Reactive Protein Total Protein Albumin Triglycerides 08/28/21 08/28/21 08/29/21 11:18 17:34 00:37 WBC RBC Hgb Hct MCV MCH RDW Eos % (Auto) Eos # (Auto) Seg Neuts % (Manual) Lymphocytes % (Manual) Seg Neutrophils # Man Lymphocytes # (Manual) APTT ABG pH POC ABG pCO2 POC ABG pO2 ABG pO2 ABG HCO3 ABG O2 Saturation ABG Base Excess ABG Hemoglobin Oxyhemoglobin Sodium Potassium Chloride Carbon Dioxide BUN Creatinine Glucose POC Glucose 144 H 131 H 125 H Calcium Phosphorus Magnesium C-Reactive Protein Total Protein Albumin Triglycerides 08/29/21 08/29/21 08/29/21 04:12 04:12 06:17 WBC 22.7 H RBC 3.35 L Hgb Hct MCV 98 H MCH RDW 16.0 H Eos % (Auto) Eos # (Auto) Seg Neuts % (Manual) Lymphocytes % (Manual) Seg Neutrophils # Man Lymphocytes # (Manual) APTT ABG pH POC ABG pCO2 POC ABG pO2 ABG pO2 ABG HCO3 ABG O2 Saturation ABG Base Excess ABG Hemoglobin Oxyhemoglobin Sodium Potassium Chloride Carbon Dioxide BUN 19 H Creatinine Glucose 121 H POC Glucose 117 H Calcium Phosphorus Magnesium C-Reactive Protein Total Protein Albumin Triglycerides 08/29/21 08/29/21 08/30/21 11:54 18:00 00:17 WBC RBC Hgb Hct MCV MCH RDW Eos % (Auto) Eos # (Auto) Seg Neuts % (Manual) Lymphocytes % (Manual) Seg Neutrophils # Man Lymphocytes # (Manual) APTT ABG pH POC ABG pCO2 POC ABG pO2 ABG pO2 ABG HCO3 ABG O2 Saturation ABG Base Excess ABG Hemoglobin Oxyhemoglobin Sodium Potassium Chloride Carbon Dioxide BUN Creatinine Glucose POC Glucose 123 H 117 H 115 H Calcium Phosphorus Magnesium C-Reactive Protein Total Protein Albumin Triglycerides 08/30/21 08/30/21 08/30/21 03:22 03:22 11:05 WBC 20.3 H RBC 3.29 L Hgb Hct MCV MCH RDW 15.6 H Eos % (Auto) Eos # (Auto) Seg Neuts % (Manual) 87.0 H Lymphocytes % (Manual) 10.0 L Seg Neutrophils # Man 17.7 H Lymphocytes # (Manual) APTT ABG pH POC ABG pCO2 POC ABG pO2 ABG pO2 ABG HCO3 ABG O2 Saturation ABG Base Excess ABG Hemoglobin Oxyhemoglobin Sodium Potassium Chloride Carbon Dioxide BUN 21 H Creatinine Glucose 129 H POC Glucose 110 H Calcium Phosphorus Magnesium C-Reactive Protein Total Protein Albumin Triglycerides 08/31/21 08/31/21 08/31/21 00:10 05:26 05:26 WBC 13.2 H RBC 3.28 L Hgb Hct MCV MCH RDW 15.9 H Eos % (Auto) Eos # (Auto) Seg Neuts % (Manual) Lymphocytes % (Manual) Seg Neutrophils # Man Lymphocytes # (Manual) APTT ABG pH POC ABG pCO2 POC ABG pO2 ABG pO2 ABG HCO3 ABG O2 Saturation ABG Base Excess ABG Hemoglobin Oxyhemoglobin Sodium Potassium Chloride Carbon Dioxide BUN 23 H Creatinine Glucose 123 H POC Glucose 138 H Calcium Phosphorus Magnesium C-Reactive Protein Total Protein Albumin Triglycerides 08/31/21 08/31/21 08/31/21 06:13 11:27 17:19 WBC RBC Hgb Hct MCV MCH RDW Eos % (Auto) Eos # (Auto) Seg Neuts % (Manual) Lymphocytes % (Manual) Seg Neutrophils # Man Lymphocytes # (Manual) APTT ABG pH POC ABG pCO2 POC ABG pO2 ABG pO2 ABG HCO3 ABG O2 Saturation ABG Base Excess ABG Hemoglobin Oxyhemoglobin Sodium Potassium Chloride Carbon Dioxide BUN Creatinine Glucose POC Glucose 135 H 149 H 152 H Calcium Phosphorus Magnesium C-Reactive Protein Total Protein Albumin Triglycerides 08/31/21 09/01/21 09/01/21 23:29 05:43 11:05 WBC RBC Hgb Hct MCV MCH RDW Eos % (Auto) Eos # (Auto) Seg Neuts % (Manual) Lymphocytes % (Manual) Seg Neutrophils # Man Lymphocytes # (Manual) APTT ABG pH POC ABG pCO2 POC ABG pO2 ABG pO2 ABG HCO3 ABG O2 Saturation ABG Base Excess ABG Hemoglobin Oxyhemoglobin Sodium Potassium Chloride Carbon Dioxide BUN Creatinine Glucose POC Glucose 121 H 119 H 113 H Calcium Phosphorus Magnesium C-Reactive Protein Total Protein Albumin Triglycerides 09/01/21 09/01/21 09/01/21 11:42 11:42 23:40 WBC 13.0 H RBC 3.38 L Hgb Hct MCV 98 H MCH RDW Eos % (Auto) Eos # (Auto) Seg Neuts % (Manual) Lymphocytes % (Manual) Seg Neutrophils # Man Lymphocytes # (Manual) APTT ABG pH POC ABG pCO2 POC ABG pO2 ABG pO2 ABG HCO3 ABG O2 Saturation ABG Base Excess ABG Hemoglobin Oxyhemoglobin Sodium Potassium Chloride Carbon Dioxide BUN 18 H Creatinine Glucose 111 H POC Glucose 139 H Calcium Phosphorus Magnesium C-Reactive Protein Total Protein Albumin Triglycerides 05/09/02/21 09/02/21 04:08 04:08 05:31 WBC RBC 3.30 L Hgb Hct MCV 98 H MCH 33 H RDW 15.6 H Eos % (Auto) Eos # (Auto) Seg Neuts % (Manual) Lymphocytes % (Manual) Seg Neutrophils # Man Lymphocytes # (Manual) APTT ABG pH POC ABG pCO2 POC ABG pO2 ABG pO2 ABG HCO3 ABG O2 Saturation ABG Base Excess ABG Hemoglobin Oxyhemoglobin Sodium 132 L Potassium Chloride Carbon Dioxide 20 L BUN Creatinine Glucose 131 H POC Glucose 124 H Calcium Phosphorus Magnesium C-Reactive Protein 29.40 H Total Protein Albumin Triglycerides 09/02/21 09/03/21 09/03/21 17:37 09:09 09:09 WBC 11.9 H RBC 2.99 L Hgb 9.5 L Hct 29.0 L MCV MCH RDW 15.6 H Eos % (Auto) Eos # (Auto) Seg Neuts % (Manual) Lymphocytes % (Manual) Seg Neutrophils # Man Lymphocytes # (Manual) APTT ABG pH POC ABG pCO2 POC ABG pO2 ABG pO2 ABG HCO3 ABG O2 Saturation ABG Base Excess ABG Hemoglobin Oxyhemoglobin Sodium 133 L Potassium Chloride Carbon Dioxide BUN 19 H Creatinine Glucose POC Glucose 108 H Calcium Phosphorus Magnesium C-Reactive Protein Total Protein Albumin Triglycerides 09/03/21 09/04/21 09/04/21 12:00 04:15 05:23 WBC RBC Hgb Hct MCV MCH RDW Eos % (Auto) Eos # (Auto) Seg Neuts % (Manual) Lymphocytes % (Manual) Seg Neutrophils # Man Lymphocytes # (Manual) APTT ABG pH POC ABG pCO2 POC ABG pO2 ABG pO2 ABG HCO3 ABG O2 Saturation ABG Base Excess ABG Hemoglobin Oxyhemoglobin Sodium 132 L Potassium 3.0 L Chloride Carbon Dioxide BUN Creatinine Glucose 113 H POC Glucose 64 L 109 H Calcium Phosphorus Magnesium C-Reactive Protein Total Protein Albumin 2.4 L Triglycerides 09/04/21 09/05/21 09/05/21 11:15 Unknown 23:59 WBC 12.1 H RBC 3.13 L Hgb 9.9 L Hct MCV MCH RDW Eos % (Auto) Eos # (Auto) Seg Neuts % (Manual) Lymphocytes % (Manual) Seg Neutrophils # Man Lymphocytes # (Manual) APTT ABG pH POC ABG pCO2 POC ABG pO2 ABG pO2 ABG HCO3 ABG O2 Saturation ABG Base Excess ABG Hemoglobin Oxyhemoglobin Sodium Potassium Chloride Carbon Dioxide BUN Creatinine Glucose 115 H POC Glucose 107 H Calcium Phosphorus Magnesium C-Reactive Protein Total Protein Albumin Triglycerides 09/06/21 09/06/21 09/06/21 04:00 04:00 05:38 WBC RBC 2.93 L Hgb 9.4 L Hct 28.6 L MCV 98 H MCH RDW 15.3 H Eos % (Auto) Eos # (Auto) Seg Neuts % (Manual) Lymphocytes % (Manual) Seg Neutrophils # Man Lymphocytes # (Manual) APTT ABG pH POC ABG pCO2 POC ABG pO2 ABG pO2 ABG HCO3 ABG O2 Saturation ABG Base Excess ABG Hemoglobin Oxyhemoglobin Sodium 135 L Potassium Chloride Carbon Dioxide 19 L BUN Creatinine 0.5 L Glucose 110 H POC Glucose 119 H Calcium Phosphorus Magnesium C-Reactive Protein Total Protein Albumin Triglycerides 09/06/21 09/06/21 09/06/21 12:04 16:13 23:42 WBC RBC Hgb Hct MCV MCH RDW Eos % (Auto) Eos # (Auto) Seg Neuts % (Manual) Lymphocytes % (Manual) Seg Neutrophils # Man Lymphocytes # (Manual) APTT ABG pH POC ABG pCO2 POC ABG pO2 ABG pO2 ABG HCO3 ABG O2 Saturation ABG Base Excess ABG Hemoglobin Oxyhemoglobin Sodium Potassium Chloride Carbon Dioxide BUN Creatinine Glucose POC Glucose 112 H 128 H 122 H Calcium Phosphorus Magnesium C-Reactive Protein Total Protein Albumin Triglycerides 09/07/21 09/07/21 09/07/21 04:47 06:00 06:00 WBC RBC 2.92 L Hgb 9.5 L Hct 28.2 L MCV MCH 33 H RDW Eos % (Auto) 5.7 H Eos # (Auto) 0.5 H Seg Neuts % (Manual) Lymphocytes % (Manual) Seg Neutrophils # Man Lymphocytes # (Manual) APTT ABG pH POC ABG pCO2 POC ABG pO2 ABG pO2 ABG HCO3 ABG O2 Saturation ABG Base Excess ABG Hemoglobin Oxyhemoglobin Sodium 136 L Potassium Chloride Carbon Dioxide BUN Creatinine Glucose 111 H POC Glucose 110 H Calcium 10.3 H Phosphorus Magnesium C-Reactive Protein Total Protein Albumin Triglycerides 09/07/21 09/07/21 09/07/21 12:14 16:13 23:38 WBC RBC Hgb Hct MCV MCH RDW Eos % (Auto) Eos # (Auto) Seg Neuts % (Manual) Lymphocytes % (Manual) Seg Neutrophils # Man Lymphocytes # (Manual) APTT ABG pH POC ABG pCO2 POC ABG pO2 ABG pO2 ABG HCO3 ABG O2 Saturation ABG Base Excess ABG Hemoglobin Oxyhemoglobin Sodium Potassium Chloride Carbon Dioxide BUN Creatinine Glucose POC Glucose 115 H 113 H 127 H Calcium Phosphorus Magnesium C-Reactive Protein Total Protein Albumin Triglycerides 09/08/21 09/08/21 05:11 11:50 WBC RBC Hgb Hct MCV MCH RDW Eos % (Auto) Eos # (Auto) Seg Neuts % (Manual) Lymphocytes % (Manual) Seg Neutrophils # Man Lymphocytes # (Manual) APTT ABG pH POC ABG pCO2 POC ABG pO2 ABG pO2 ABG HCO3 ABG O2 Saturation ABG Base Excess ABG Hemoglobin Oxyhemoglobin Sodium Potassium Chloride Carbon Dioxide BUN Creatinine Glucose POC Glucose 115 H 108 H Calcium Phosphorus Magnesium C-Reactive Protein Total Protein Albumin Triglycerides
[2021-09-08] MEDS: diphenhydrAMINE 25 MG CAP PO PRN (18:27)
--- NOTE | 2021-09-08 18:40 | Progress Note ---
Assessment and Plan 76-year-old female patient with history of depression hypothyroidism, hypertension was admitted on 08/19/2021 with angioedema due to amlodipine intubated on 08/19/2021 stabilized and extubated on 08/25/2021 patient developed stridor and was reintubated on 08/26/2021 and subsequently underwent tracheostomy and PEG tube placement on 08/26/2021. Brief history and daily hospital course; 08/19: Patient started on tube feedings, potassium repleted, started on Benadryl and propofol for sedation. SSI started. Air leak present today however due to swelling of the tongue we will hold off extubation. [facility] plans to try FFP in the a.m. if swelling not better. 08/20: Angioedema slightly better so we will hold off FFP today. Updated son at bedside but he did not know what medication she was taking and states that she has not had angioedema in the past. Patient still remains on Versed and propofol. Was given 500 mL bolus overnight for hypotension and will repeat for hypotension. 08/21: Leak test today at bedside with RT shows no leak and will give FFP today. Tongue looks a bit smaller today but given no leak, CCM will not extubate today. Sedated with propofol and versed. Son at bedside today. 08/22: RT performed leak test in the AM and stated there was a leak noted and placed the patient on CPAP. She was sedated on versed at 4 and propofol at 30 but these are off for CPAP. Will removed lewis. Received FFP yesterday. Angioedema is improved. Leak test performed again with Dr. Bailey and no leak audible. Switched back to AC and sedation restarted 08/23: Remains on the vent and sedated. Cuff leak assessed again today by CCM, still no significant air leak noted. Per CCM keep patient intubated and sedated and continue IV steroids and histamine therapy for now. Fentanyl gtt added, plan to wean off versed for RASS goal of 0 to -1. 08/24: Arousable and appropriate on the vent and on low dose sedation. No cuff leak again today per RT. D/W CCM plan for CT neck w/o contrast for further eval. If CT neck normal, PSV trial and possible extubation tomorrow. 08/25: S/p extubation this am, audible stridor appreciated. S/p X2 doses of RaceEpi and IV solumedrol X1 dose. Patient currently stable on 4L NC, SPO2 at 9 4%. Patient is low threshold for re-intubation, case discussed with anesthesia in case of any decompensation. D/w CCM patient will need a trach if she is reintubated. Plan of care was thoroughly discussed with patient's son at the bedside by the belt changer. All question and concerns were addressed at this time. 08/26: Reintubated yesterday due to stridor. General Surgery consulted, plan for possible trach and PEG today. Hypotension resolved this am most likely due to sedation for intubation, VSS today. Wean SPO2 as tolerated for SPO2 above 90%. Continue to monitor and replete electrolytes as needed. 08/27: s/p Trach and PEG overnight. Patient is stable on the vent this am, sedated on propofol and fentanyl. okay to use PEG-tube per general surgery, resume TF as ordered. PRN Analgesia added for pain control, wean off sedation as tolerated. Plan for possible PSV trial tomorrow. 08/28: Stable on the vent, still on sedation. Schedule tramadol and PRN fentanyl added for pain control, plan to wean sedation as tolerated. Possible PSV trial tomorrow if off sedation. PRN Xanax for anxiety. BR added for constipation. 08/29: Back on propofol from overnight due to increase anxiety. Patient is awake and calm this am, will D/C propofol and use PRN Xanax as needed for anxiety. Continue schedule tramadol and PRN fentanyl for pain control. Patient with increase secretion today, orally and via trach. Patient is also febrile with spike in WBCs, Chest XR ordered and will panculture. Hold off IV abx for now. Will also remove lewis catheter, straight/cath and bladder scan per protocol. 08/30: Ordered mag citrate today as suppositories do not yield any results yesterday, will start bladder training today. Remains afebrile. PSV per RT. 08/31: D/w Dr Jenkins, will attempt t peice trial for 24 hrs. Ultimately dispo for this patient will be SNF if able to tolerate trial. Paged in afternoon regarding projectile vomiting. No residual noted in PEG tube. KUB ordered. Will likely order Mag citrate as patient has not had BM. 5/18: This AM noted to have bleeding from trach site and peg tube noted to be misplaced with brown drainage. Dr. Mays alerted and came to bedside. RT states suture was removed from trach which stopped the bleeding. Neck and Abd/Pelvis CT ordered. Abd CT showed pef displacement and surgery contacted vascular surgery who will take the patient to IR. Stat CBC and BMP obtained. ID consulted re PCN allergy and sputum culture sent re concern for Pseudumonas in trach aspirate. meds changed to iv 09/02-patient seen at bedside. Awake-she reports coughing and asking for cough medicine. Pt is s/p peg placement. Pt is NPO and on gently IV fluid for hydration. Will start feeding per surgery. Reviewed lab and v/s. Patient not in acute distress. I discussed plan of care with Dr Jenkins-will restart tube feeding, Heprin subcutaneous, continue IV diflucan and f/u with ID reces for abx. Will continue PS P-NFL-I[place]h T-piece tomorrow if patient is stable. 09/03: Patient having bilious drainage from PEG tube entrance site, awaiting surgery around. Started on mineral enemas, T-max 102, aztreonam IV, then discontinued, RN to monitor disimpact the patient. Patient will be started on TPN. PICC consult for PICC 09/04: Dr. Young recommends holding off tube feeds and she inflated the balloon for G-tube. Gastrografin x-ray completed which states PEG tube is in stomach without extravasation and tube feedings will be restarted. Continues on T- piece. No acute events reported overnight. MIVF continues. 09/05: Patient restarted on tube feedings overnight and has been tolerating, restarted p.o. medications. Per RN patient has had multiple large BMs. Patient is a tolerating T-piece and will be transferred to the floor today. 09/06: Awaiting placement to snf. d/w cm during rounds this am. 09/07; awaiting placement LTAC/SNF/rehab 09/08: Patient on 5 to 6 L O2 with T-piece. Discharge when medically stable and when placement is processed. Assessment and plan: Neuro: h/o depression -Restart home thiamine, multivitamin, Zoloft, BuSpar and as needed Xanax -Tramadol prn -Avoid delirium -Reorientation as needed -Maintain sleep-wake cycle -As needed analgesia Cardiac: h/o htn -Blood pressure monitoring per protocol -Hydralazine as needed -resume home antihypertenisve regimen when available and if needed Respiratory: Acute hypoxic respiratory failure, angioedema -CCM consulted, appreciate recommendations -Intubated in the emergency department on 08/19 with 7.50 ETT at 24 the lips, extubated 08/25 but reintubated shortly after -s/p trach and peg 08/26 -T piece trials -VAP bundle -SPO2 monitoring -s/p Benadryl, Pepcid, Solu-Medrol GI: MO, malpositioned peg tube -s/p peg 08/26 -24 hours -300 mL -PPI -NTR consulted for tube feedings -BR: Senna,colace, miralax -08/29 suppository, 08/30 mag citrate, 08/31 lactulose q2 -CT abd/pelvis shows misposition of PEG -IR consult by surgery for replacement in IR lab under flouro -S/p 09/01 EGD, removal of PEG tube, laparoscopic exploration, lysis of adhesions, stable closure of gastrotomy site, placement of gastric tube 20 [place] -Dr. Young replaced air to gtube balloon and gastrografen xray showed no extravastation on 09/04 -tolerating TF : Urinary retention -Strict intake and output -Renally dose medications -Avoid nephrotoxic medications -Daily weights -Trend BMP -Lewis reinserted -bladder scan and training ID: Sepsis/SIRS secondary to right lower lobe pneumonia, Intra-Op finding of esophageal candidiasis -Seen on CT A/P -ID consulted, appreciate recommendations -Per ID: Sputum culture growing usual respiratory david and aztreonam discontinued -Vancomycin discontinued as MRSA PCR negative -Antibiotic therapy: Levofloxacin for 5 days and fluconazole for 14 days -f/u blood culture -Monitor WBC and temperature curve Endo: h/o hypothyroidism -continue synthroid -Avoid hypoglycemia -SSI -Accu-Cheks q. 6 Heme: Leukocytosis -Trend CBC -Transfuse hemoglobin less than 7 -Monitor for signs of bleeding -SCDs to BLE while in bed -heparin subq Wean oxygen as tolerated We will closely monitor the patient and adjust management as needed Plan of care reviewed with the patient and nurse and the case management Awaiting placement SNF/LTAC/subacute. CM assisting with discharge planning Subjective Date of service: 09/08/21 Interval history: Patient seen and examined. Medical records and medication list reviewed. No acute event overnight noted by the RN. Patient tolerating tube feeding diet, remains on trach with T-piece Discussed plan of care at bedside with patient. Objective - Exam Narrative Exam: General appearance: Present: no acute distress, well-nourished, obese, other (Tracheostomy on T-piece, 6 L saturating well) - EENT Eyes: Present: PERRL, EOM intact ENT: other (Tracheostomy in place) - Neck Neck: Present: supple, normal ROM - Respiratory Respiratory effort: normal Respiratory: bilateral: diminished, rhonchi, negative: rales, wheezing - Cardiovascular Rhythm: regular Heart Sounds: Present: S1 & S2 - Extremities Extremities: no ischemia, No edema - Abdominal General gastrointestinal: soft, non-tender, non-distended, normal bowel sounds - Integumentary Integumentary: Present: clear, warm - Psychiatric Psychiatric: appropriate mood/affect, cooperative - Neurologic Neurologic: moves all extremities - Constitutional Vitals: Vital Signs - 12hr 09/08/21 09/08/21 09/08/21 07:35 07:58 08:00 Temperature 98.7 F Pulse Rate 80 87 Respiratory 16 Rate Blood Pressure Blood Pressure 109/67 [Left] O2 Sat by Pulse 94 98 Oximetry O2 Sat by Pulse 94 Oximetry [ Assessment] 09/08/21 09/08/21 09/08/21 10:00 11:52 15:57 Temperature 97.1 F L Pulse Rate 84 Respiratory 18 Rate Blood Pressure 116/71 Blood Pressure [Left] O2 Sat by Pulse 98 96 Oximetry O2 Sat by Pulse 97 Oximetry [ Assessment] 09/08/21 15:58 Temperature 97.5 F L Pulse Rate 83 Respiratory 18 Rate Blood Pressure 111/82 Blood Pressure [Left] O2 Sat by Pulse 90 Oximetry O2 Sat by Pulse Oximetry [ Assessment] - Labs CBC & Chem 7: 09/07/21 06:00 09/07/21 06:00 Labs: Abnormal lab results 09/07/21 09/08/21 09/08/21 Range/Units 23:38 05:11 11:50 POC Glucose 127 H 115 H 108 H (70-105) mg/dL 09/08/21 Range/Units 15:55 POC Glucose 109 H (70-105) mg/dL
[2021-09-08] MEDS: SENNOSIDES ORAL LIQD 8.8 MG/5 ML ORAL LIQD FEEDTUBE SCH (21:50)
[2021-09-08] MEDS: FLUCONAZOLE 200 MG TAB FEEDTUBE SCH (21:54)
[2021-09-09] MEDS: INSULIN REGULAR, HUMAN 100 UNITS/1 ML SUB-Q SCH ×4 (01:00→17:09)
[2021-09-09] MEDS: SUCRALFATE 1 GM/10 ML ORAL LIQD FEEDTUBE SCH ×4 (01:30→17:09)
[2021-09-09] MEDS: LEVOTHYROXINE 150 MCG TAB FEEDTUBE SCH (05:19)
[2021-09-09] MEDS: traMADol 50 MG TAB FEEDTUBE PRN ×2 (05:31→23:23)
[2021-09-09] MEDS: LORazepam 0.5 MG TAB FEEDTUBE PRN ×2 (05:32→15:49)
--- NOTE | 2021-09-09 10:12 | Progress Note ---
Assessment and Plan 76 y/o female with acute respiratory failure secondary to angioedema 09/09/21: Stable pulm status. Await placement. Trach care. 09/08/21: No new recs pulm riddle. continue trach care and wean FiO2 as tolerated. 09/07/21: Stable pulm status, hopefully placement is being pursued. Will continue to follow. Stable for transfer pulm riddle when bed available 09/06/21: Continue T-piece. Continue feeds. 09/05/21: Feeding patient and tolerating. No TPN needed right now. Change meds back to PO. Stable for transfer to floor. 09/04/21: Will ask surgery how they feel about possibly downsizing trach to a 6 cuffed. patient not intubated for lung reasons, all upper airway issues. If so then could have speech assess with PMV and possible swallow eval. If tolerated 6 and 4 is need could go to that faster and then have speech see again. Goal of this is to have her on TPN for as little time as possible. Follow up surgery recs after they see patient today. Guarded prognosis. 09/03/21: Enema today. Await surgery eval and recs. Continue T-piece and only rest on PSV if absolutely needed. Abx per ID 09/02/21: Resume feeding today. Tolerating PSV trial, if continues will attempt T-piece tomorrow. Restart Heparin. Guarded prognosis. Back on Diflucan 09/01/21: Hold on any weaning today. Hold heparin for 24 hours. Surgery spoke with IR, they will attempt to replace peg tube. Changed as many meds to IV as possible. ID has now been consulted so will defer all abx therapy to them. Guarded prognosis, family not at bedside this am. 08/31/21: Dropped PSV to 10/6, if tolerates then in a few hours place on T- piece. Rest on PSV tonight. Then 24 hours of T-piece tomorrow. Most likely transfer out of unit on . Will discuss urine situation with nursing staff. Voided and has had no issues so will not place lewis. Spiked a temp. Repeat cultures with next temperature spike and will start on Diflucan empi rically for oral candidiasis. 08/30/21: Start bladder training q4 hours. All cultures negative thus far and no further temps. Given Mag Citrate today, if no BM in the next 24, will start some scheduled lactulose. Continue PSV as tolerated. 08/29/21: Agree with hernandez culture, hold on abx, remove lewis. Repeat CXR. Per nursing has not had bowel movement in at least 4 days. Check KUB. PSV trials to start soon 08/28/21: would like to get patient off of continuous sedation so will scheduled tramadol therapy with hopes of weaning Fent Drip. Will order fent 50Q2 PRN pain to help with this as well. Will likely need to be placed on bowel regimen to prevent constipation. Once off continuous drips, can start PSV trials. 08/27/21: Start using peg. Continue PRN fent pushes and will add PRN tramadol as well. Wean sedation off. Can start PSV trials as early as tomorrow. 1. Agree with IV steroids 2. Suggest adding scheduled benadryl and pepcid 3. If swelling does not improve in the next 24-48 hours, suggest a trial of FFP 4. Wean FiO2 for sats > 88% CCT 31 minutes Subjective Date of service: 09/09/21 Interval history: no acute events. stable on t-piece. Awaiting placement. Objective Vital Signs - 12hr 09/08/21 09/09/21 09/09/21 22:15 02:52 03:04 Temperature Pulse Rate Respiratory Rate Blood Pressure O2 Sat by Pulse 98 99 Oximetry O2 Sat by Pulse 99 Oximetry [ Assessment] 09/09/21 09/09/21 09/09/21 04:18 08:18 08:34 Temperature 98.5 F Pulse Rate 90 105 H Respiratory 18 18 Rate Blood Pressure 128/86 117/90 O2 Sat by Pulse 99 97 100 Oximetry O2 Sat by Pulse 100 Oximetry [ Assessment] 09/09/21 09:13 Temperature Pulse Rate Respiratory Rate Blood Pressure O2 Sat by Pulse 99 Oximetry O2 Sat by Pulse Oximetry [ Assessment] Constitutional: no acute distress, other (Sedated) ENT: other (orally intubated, macroglossia) Neck: supple, no lymphadenopathy Effort: other (Supported on ventilator) Ascultation: Bilateral: clear Percussion: Bilateral: not dull Cardiovascular: regular rate and rhythm Gastrointestinal: normoactive bowel sounds Extremities: no cyanosis, no edema, pink and warm Neurologic: other (Sedated) Psychiatric: other (Sedated) CBC and BMP: 09/07/21 06:00 09/07/21 06:00 ABG, PT/INR, D-dimer: ABG ABG pH 7.516 pH Units (7.350-7.450) H 08/27/21 03:56 POC ABG pCO2 30.1 mmHg (32.0-48.0) L 08/22/21 10:16 ABG pCO2 34.4 mm Hg 08/27/21 03:56 POC ABG pO2 109.5 mmHg (83-108) H 08/22/21 10:16 ABG pO2 117.0 mm Hg (80.0-90.0) H 08/27/21 03:56 POC ABG HCO3 23.5 08/22/21 10:16 ABG O2 Saturation 98.4 % (95.0-99.0) 08/27/21 03:56 PT/INR, D-dimer PT 12.8 Sec. (12.2-14.9) 08/19/21 02:24 INR 0.87 (0.87-1.13) 08/19/21 02:24 Abnormal lab findings: Abnormal Labs 08/19/21 08/19/21 08/19/21 02:24 02:24 02:24 WBC 13.9 H RBC Hgb Hct MCV 98 H MCH 33 H RDW 15.7 H Eos % (Auto) Eos # (Auto) Seg Neuts % (Manual) Lymphocytes % (Manual) 52.0 H Seg Neutrophils # Man Lymphocytes # (Manual) 7.2 H APTT 20.0 L ABG pH POC ABG pCO2 POC ABG pO2 ABG pO2 ABG HCO3 ABG O2 Saturation ABG Base Excess ABG Hemoglobin Oxyhemoglobin Sodium Potassium 3.3 L Chloride Carbon Dioxide 20 L BUN Creatinine Glucose 143 H POC Glucose Calcium Phosphorus Magnesium C-Reactive Protein Total Protein 8.3 H Albumin Triglycerides 08/19/21 08/19/21 08/19/21 06:15 10:20 11:10 WBC RBC Hgb Hct MCV MCH RDW Eos % (Auto) Eos # (Auto) Seg Neuts % (Manual) Lymphocytes % (Manual) Seg Neutrophils # Man Lymphocytes # (Manual) APTT ABG pH 7.465 H 7.503 H POC ABG pCO2 POC ABG pO2 ABG pO2 177.7 H 90.5 H ABG HCO3 ABG O2 Saturation 99.2 H ABG Base Excess ABG Hemoglobin Oxyhemoglobin Sodium Potassium Chloride Carbon Dioxide BUN Creatinine Glucose POC Glucose 171 H Calcium Phosphorus Magnesium C-Reactive Protein Total Protein Albumin Triglycerides 08/19/21 08/20/21 08/20/21 16:33 00:03 04:25 WBC RBC Hgb Hct MCV 98 H MCH 33 H RDW 15.9 H Eos % (Auto) Eos # (Auto) Seg Neuts % (Manual) 83.0 H Lymphocytes % (Manual) Seg Neutrophils # Man Lymphocytes # (Manual) APTT ABG pH POC ABG pCO2 POC ABG pO2 ABG pO2 ABG HCO3 ABG O2 Saturation ABG Base Excess ABG Hemoglobin Oxyhemoglobin Sodium Potassium Chloride Carbon Dioxide BUN Creatinine Glucose POC Glucose 179 H 133 H Calcium Phosphorus Magnesium C-Reactive Protein Total Protein Albumin Triglycerides 08/20/21 08/20/21 08/20/21 04:25 04:30 05:39 WBC RBC Hgb Hct MCV MCH RDW Eos % (Auto) Eos # (Auto) Seg Neuts % (Manual) Lymphocytes % (Manual) Seg Neutrophils # Man Lymphocytes # (Manual) APTT ABG pH POC ABG pCO2 POC ABG pO2 ABG pO2 95.5 H ABG HCO3 ABG O2 Saturation ABG Base Excess -2.2 L ABG Hemoglobin Oxyhemoglobin Sodium Potassium Chloride Carbon Dioxide 21 L BUN Creatinine Glucose 143 H POC Glucose 168 H Calcium 8.2 L Phosphorus Magnesium C-Reactive Protein Total Protein Albumin Triglycerides 08/20/21 08/20/21 08/21/21 12:04 16:38 00:12 WBC RBC Hgb Hct MCV MCH RDW Eos % (Auto) Eos # (Auto) Seg Neuts % (Manual) Lymphocytes % (Manual) Seg Neutrophils # Man Lymphocytes # (Manual) APTT ABG pH POC ABG pCO2 POC ABG pO2 ABG pO2 ABG HCO3 ABG O2 Saturation ABG Base Excess ABG Hemoglobin Oxyhemoglobin Sodium Potassium Chloride Carbon Dioxide BUN Creatinine Glucose POC Glucose 151 H 135 H 123 H Calcium Phosphorus Magnesium C-Reactive Protein Total Protein Albumin Triglycerides 08/21/21 08/21/21 08/21/21 04:58 04:58 04:59 WBC RBC 3.64 L Hgb Hct MCV 100 H MCH RDW 16.4 H Eos % (Auto) Eos # (Auto) Seg Neuts % (Manual) Lymphocytes % (Manual) Seg Neutrophils # Man Lymphocytes # (Manual) APTT ABG pH POC ABG pCO2 POC ABG pO2 ABG pO2 ABG HCO3 ABG O2 Saturation ABG Base Excess -2.6 L ABG Hemoglobin 11.6 L Oxyhemoglobin Sodium Potassium 3.5 L Chloride 109.5 H Carbon Dioxide 19 L BUN Creatinine Glucose 159 H POC Glucose Calcium 8.3 L Phosphorus Magnesium C-Reactive Protein Total Protein Albumin Triglycerides 08/21/21 08/21/21 08/21/21 05:22 11:21 16:29 WBC RBC Hgb Hct MCV MCH RDW Eos % (Auto) Eos # (Auto) Seg Neuts % (Manual) Lymphocytes % (Manual) Seg Neutrophils # Man Lymphocytes # (Manual) APTT ABG pH POC ABG pCO2 POC ABG pO2 ABG pO2 ABG HCO3 ABG O2 Saturation ABG Base Excess ABG Hemoglobin Oxyhemoglobin Sodium Potassium Chloride Carbon Dioxide BUN Creatinine Glucose POC Glucose 143 H 133 H 122 H Calcium Phosphorus Magnesium C-Reactive Protein Total Protein Albumin Triglycerides 08/22/21 08/22/21 08/22/21 00:03 03:54 03:54 WBC RBC 3.53 L Hgb Hct MCV 100 H MCH 33 H RDW 16.7 H Eos % (Auto) Eos # (Auto) Seg Neuts % (Manual) Lymphocytes % (Manual) Seg Neutrophils # Man Lymphocytes # (Manual) APTT ABG pH POC ABG pCO2 POC ABG pO2 ABG pO2 ABG HCO3 ABG O2 Saturation ABG Base Excess ABG Hemoglobin Oxyhemoglobin Sodium Potassium Chloride 107.5 H Carbon Dioxide BUN Creatinine Glucose 123 H POC Glucose 132 H Calcium Phosphorus Magnesium C-Reactive Protein Total Protein Albumin Triglycerides 08/22/21 08/22/21 08/22/21 04:40 06:08 10:16 WBC RBC Hgb Hct MCV MCH RDW Eos % (Auto) Eos # (Auto) Seg Neuts % (Manual) Lymphocytes % (Manual) Seg Neutrophils # Man Lymphocytes # (Manual) APTT ABG pH 7.454 H 7.511 H POC ABG pCO2 30.1 L POC ABG pO2 109.5 H ABG pO2 109.8 H ABG HCO3 ABG O2 Saturation ABG Base Excess ABG Hemoglobin Oxyhemoglobin Sodium Potassium Chloride Carbon Dioxide BUN Creatinine Glucose POC Glucose 137 H Calcium Phosphorus Magnesium C-Reactive Protein Total Protein Albumin Triglycerides 08/22/21 08/22/21 08/22/21 10:27 10:27 11:13 WBC RBC Hgb Hct MCV 99 H MCH RDW 16.6 H Eos % (Auto) Eos # (Auto) Seg Neuts % (Manual) Lymphocytes % (Manual) Seg Neutrophils # Man Lymphocytes # (Manual) APTT ABG pH POC ABG pCO2 POC ABG pO2 ABG pO2 ABG HCO3 ABG O2 Saturation ABG Base Excess ABG Hemoglobin Oxyhemoglobin Sodium Potassium Chloride Carbon Dioxide BUN Creatinine Glucose 129 H POC Glucose 125 H Calcium Phosphorus Magnesium C-Reactive Protein Total Protein Albumin Triglycerides 08/22/21 08/23/21 08/23/21 23:39 04:11 04:11 WBC RBC Hgb Hct MCV 98 H MCH 33 H RDW 16.1 H Eos % (Auto) Eos # (Auto) Seg Neuts % (Manual) Lymphocytes % (Manual) Seg Neutrophils # Man Lymphocytes # (Manual) APTT ABG pH POC ABG pCO2 POC ABG pO2 ABG pO2 ABG HCO3 ABG O2 Saturation ABG Base Excess ABG Hemoglobin Oxyhemoglobin Sodium Potassium Chloride Carbon Dioxide BUN Creatinine Glucose 148 H POC Glucose 117 H Calcium Phosphorus Magnesium C-Reactive Protein Total Protein Albumin Triglycerides 08/23/21 08/23/21 08/23/21 05:32 11:02 18:04 WBC RBC Hgb Hct MCV MCH RDW Eos % (Auto) Eos # (Auto) Seg Neuts % (Manual) Lymphocytes % (Manual) Seg Neutrophils # Man Lymphocytes # (Manual) APTT ABG pH POC ABG pCO2 POC ABG pO2 ABG pO2 ABG HCO3 ABG O2 Saturation ABG Base Excess ABG Hemoglobin Oxyhemoglobin Sodium Potassium Chloride Carbon Dioxide BUN Creatinine Glucose POC Glucose 173 H 146 H 129 H Calcium Phosphorus Magnesium C-Reactive Protein Total Protein Albumin Triglycerides 08/24/21 08/24/21 08/24/21 00:27 05:20 06:00 WBC RBC Hgb Hct MCV MCH RDW Eos % (Auto) Eos # (Auto) Seg Neuts % (Manual) Lymphocytes % (Manual) Seg Neutrophils # Man Lymphocytes # (Manual) APTT ABG pH 7.481 H POC ABG pCO2 POC ABG pO2 ABG pO2 95.8 H ABG HCO3 29.8 H ABG O2 Saturation ABG Base Excess 5.8 H ABG Hemoglobin Oxyhemoglobin Sodium Potassium Chloride Carbon Dioxide BUN Creatinine Glucose POC Glucose 146 H 159 H Calcium Phosphorus Magnesium C-Reactive Protein Total Protein Albumin Triglycerides 08/24/21 08/25/21 08/25/21 11:37 05:13 11:38 WBC RBC Hgb Hct MCV MCH RDW Eos % (Auto) Eos # (Auto) Seg Neuts % (Manual) Lymphocytes % (Manual) Seg Neutrophils # Man Lymphocytes # (Manual) APTT ABG pH POC ABG pCO2 POC ABG pO2 ABG pO2 ABG HCO3 ABG O2 Saturation ABG Base Excess ABG Hemoglobin Oxyhemoglobin Sodium Potassium Chloride Carbon Dioxide BUN Creatinine Glucose POC Glucose 154 H 121 H 135 H Calcium Phosphorus Magnesium C-Reactive Protein Total Protein Albumin Triglycerides 08/25/21 08/25/21 08/26/21 16:00 17:12 00:04 WBC RBC Hgb Hct MCV MCH RDW Eos % (Auto) Eos # (Auto) Seg Neuts % (Manual) Lymphocytes % (Manual) Seg Neutrophils # Man Lymphocytes # (Manual) APTT ABG pH POC ABG pCO2 POC ABG pO2 ABG pO2 78.3 L ABG HCO3 32.7 H ABG O2 Saturation ABG Base Excess 6.3 H ABG Hemoglobin 11.0 L Oxyhemoglobin 93.9 L Sodium Potassium Chloride Carbon Dioxide BUN Creatinine Glucose POC Glucose 179 H 140 H Calcium Phosphorus Magnesium C-Reactive Protein Total Protein Albumin Triglycerides 08/26/21 08/26/21 08/26/21 04:22 04:59 04:59 WBC 12.9 H RBC 3.54 L Hgb Hct MCV MCH RDW 15.6 H Eos % (Auto) Eos # (Auto) Seg Neuts % (Manual) Lymphocytes % (Manual) Seg Neutrophils # Man Lymphocytes # (Manual) APTT ABG pH 7.533 H POC ABG pCO2 POC ABG pO2 ABG pO2 76.9 L ABG HCO3 29.2 H ABG O2 Saturation ABG Base Excess 6.4 H ABG Hemoglobin 11.6 L Oxyhemoglobin Sodium Potassium 3.5 L Chloride Carbon Dioxide BUN 28 H Creatinine Glucose 139 H POC Glucose Calcium Phosphorus Magnesium C-Reactive Protein Total Protein Albumin Triglycerides 08/26/21 08/26/21 08/26/21 05:34 11:21 16:52 WBC RBC Hgb Hct MCV MCH RDW Eos % (Auto) Eos # (Auto) Seg Neuts % (Manual) Lymphocytes % (Manual) Seg Neutrophils # Man Lymphocytes # (Manual) APTT ABG pH POC ABG pCO2 POC ABG pO2 ABG pO2 ABG HCO3 ABG O2 Saturation ABG Base Excess ABG Hemoglobin Oxyhemoglobin Sodium Potassium Chloride Carbon Dioxide BUN Creatinine Glucose POC Glucose 152 H 145 H 151 H Calcium Phosphorus Magnesium C-Reactive Protein Total Protein Albumin Triglycerides 08/27/21 08/27/21 08/27/21 03:56 04:25 04:25 WBC 12.4 H RBC 3.39 L Hgb Hct MCV 98 H MCH RDW 15.8 H Eos % (Auto) Eos # (Auto) Seg Neuts % (Manual) Lymphocytes % (Manual) Seg Neutrophils # Man Lymphocytes # (Manual) APTT ABG pH 7.516 H POC ABG pCO2 POC ABG pO2 ABG pO2 117.0 H ABG HCO3 27.2 H ABG O2 Saturation ABG Base Excess 4.3 H ABG Hemoglobin 11.1 L Oxyhemoglobin Sodium Potassium Chloride Carbon Dioxide BUN 27 H Creatinine Glucose POC Glucose Calcium Phosphorus 2.10 L Magnesium 2.50 H C-Reactive Protein Total Protein Albumin Triglycerides 08/27/21 08/27/21 08/27/21 04:25 17:31 23:37 WBC RBC Hgb Hct MCV MCH RDW Eos % (Auto) Eos # (Auto) Seg Neuts % (Manual) Lymphocytes % (Manual) Seg Neutrophils # Man Lymphocytes # (Manual) APTT ABG pH POC ABG pCO2 POC ABG pO2 ABG pO2 ABG HCO3 ABG O2 Saturation ABG Base Excess ABG Hemoglobin Oxyhemoglobin Sodium Potassium Chloride Carbon Dioxide BUN Creatinine Glucose POC Glucose 111 H 122 H Calcium Phosphorus Magnesium C-Reactive Protein Total Protein Albumin Triglycerides 200 H 08/28/21 08/28/21 08/28/21 04:11 04:11 05:01 WBC 17.2 H RBC 3.29 L Hgb Hct MCV 99 H MCH RDW 16.2 H Eos % (Auto) Eos # (Auto) Seg Neuts % (Manual) Lymphocytes % (Manual) Seg Neutrophils # Man Lymphocytes # (Manual) APTT ABG pH POC ABG pCO2 POC ABG pO2 ABG pO2 ABG HCO3 ABG O2 Saturation ABG Base Excess ABG Hemoglobin Oxyhemoglobin Sodium Potassium Chloride 109.2 H Carbon Dioxide BUN 22 H Creatinine Glucose 137 H POC Glucose 133 H Calcium Phosphorus Magnesium C-Reactive Protein Total Protein Albumin Triglycerides 08/28/21 08/28/21 08/29/21 11:18 17:34 00:37 WBC RBC Hgb Hct MCV MCH RDW Eos % (Auto) Eos # (Auto) Seg Neuts % (Manual) Lymphocytes % (Manual) Seg Neutrophils # Man Lymphocytes # (Manual) APTT ABG pH POC ABG pCO2 POC ABG pO2 ABG pO2 ABG HCO3 ABG O2 Saturation ABG Base Excess ABG Hemoglobin Oxyhemoglobin Sodium Potassium Chloride Carbon Dioxide BUN Creatinine Glucose POC Glucose 144 H 131 H 125 H Calcium Phosphorus Magnesium C-Reactive Protein Total Protein Albumin Triglycerides 08/29/21 08/29/21 08/29/21 04:12 04:12 06:17 WBC 22.7 H RBC 3.35 L Hgb Hct MCV 98 H MCH RDW 16.0 H Eos % (Auto) Eos # (Auto) Seg Neuts % (Manual) Lymphocytes % (Manual) Seg Neutrophils # Man Lymphocytes # (Manual) APTT ABG pH POC ABG pCO2 POC ABG pO2 ABG pO2 ABG HCO3 ABG O2 Saturation ABG Base Excess ABG Hemoglobin Oxyhemoglobin Sodium Potassium Chloride Carbon Dioxide BUN 19 H Creatinine Glucose 121 H POC Glucose 117 H Calcium Phosphorus Magnesium C-Reactive Protein Total Protein Albumin Triglycerides 08/29/21 08/29/21 08/30/21 11:54 18:00 00:17 WBC RBC Hgb Hct MCV MCH RDW Eos % (Auto) Eos # (Auto) Seg Neuts % (Manual) Lymphocytes % (Manual) Seg Neutrophils # Man Lymphocytes # (Manual) APTT ABG pH POC ABG pCO2 POC ABG pO2 ABG pO2 ABG HCO3 ABG O2 Saturation ABG Base Excess ABG Hemoglobin Oxyhemoglobin Sodium Potassium Chloride Carbon Dioxide BUN Creatinine Glucose POC Glucose 123 H 117 H 115 H Calcium Phosphorus Magnesium C-Reactive Protein Total Protein Albumin Triglycerides 08/30/21 08/30/21 08/30/21 03:22 03:22 11:05 WBC 20.3 H RBC 3.29 L Hgb Hct MCV MCH RDW 15.6 H Eos % (Auto) Eos # (Auto) Seg Neuts % (Manual) 87.0 H Lymphocytes % (Manual) 10.0 L Seg Neutrophils # Man 17.7 H Lymphocytes # (Manual) APTT ABG pH POC ABG pCO2 POC ABG pO2 ABG pO2 ABG HCO3 ABG O2 Saturation ABG Base Excess ABG Hemoglobin Oxyhemoglobin Sodium Potassium Chloride Carbon Dioxide BUN 21 H Creatinine Glucose 129 H POC Glucose 110 H Calcium Phosphorus Magnesium C-Reactive Protein Total Protein Albumin Triglycerides 08/31/21 08/31/21 08/31/21 00:10 05:26 05:26 WBC 13.2 H RBC 3.28 L Hgb Hct MCV MCH RDW 15.9 H Eos % (Auto) Eos # (Auto) Seg Neuts % (Manual) Lymphocytes % (Manual) Seg Neutrophils # Man Lymphocytes # (Manual) APTT ABG pH POC ABG pCO2 POC ABG pO2 ABG pO2 ABG HCO3 ABG O2 Saturation ABG Base Excess ABG Hemoglobin Oxyhemoglobin Sodium Potassium Chloride Carbon Dioxide BUN 23 H Creatinine Glucose 123 H POC Glucose 138 H Calcium Phosphorus Magnesium C-Reactive Protein Total Protein Albumin Triglycerides 08/31/21 08/31/21 08/31/21 06:13 11:27 17:19 WBC RBC Hgb Hct MCV MCH RDW Eos % (Auto) Eos # (Auto) Seg Neuts % (Manual) Lymphocytes % (Manual) Seg Neutrophils # Man Lymphocytes # (Manual) APTT ABG pH POC ABG pCO2 POC ABG pO2 ABG pO2 ABG HCO3 ABG O2 Saturation ABG Base Excess ABG Hemoglobin Oxyhemoglobin Sodium Potassium Chloride Carbon Dioxide BUN Creatinine Glucose POC Glucose 135 H 149 H 152 H Calcium Phosphorus Magnesium C-Reactive Protein Total Protein Albumin Triglycerides 08/31/21 09/01/21 09/01/21 23:29 05:43 11:05 WBC RBC Hgb Hct MCV MCH RDW Eos % (Auto) Eos # (Auto) Seg Neuts % (Manual) Lymphocytes % (Manual) Seg Neutrophils # Man Lymphocytes # (Manual) APTT ABG pH POC ABG pCO2 POC ABG pO2 ABG pO2 ABG HCO3 ABG O2 Saturation ABG Base Excess ABG Hemoglobin Oxyhemoglobin Sodium Potassium Chloride Carbon Dioxide BUN Creatinine Glucose POC Glucose 121 H 119 H 113 H Calcium Phosphorus Magnesium C-Reactive Protein Total Protein Albumin Triglycerides 09/01/21 09/01/21 09/01/21 11:42 11:42 23:40 WBC 13.0 H RBC 3.38 L Hgb Hct MCV 98 H MCH RDW Eos % (Auto) Eos # (Auto) Seg Neuts % (Manual) Lymphocytes % (Manual) Seg Neutrophils # Man Lymphocytes # (Manual) APTT ABG pH POC ABG pCO2 POC ABG pO2 ABG pO2 ABG HCO3 ABG O2 Saturation ABG Base Excess ABG Hemoglobin Oxyhemoglobin Sodium Potassium Chloride Carbon Dioxide BUN 18 H Creatinine Glucose 111 H POC Glucose 139 H Calcium Phosphorus Magnesium C-Reactive Protein Total Protein Albumin Triglycerides 09/02/21 09/02/21 09/02/21 04:08 04:08 05:31 WBC RBC 3.30 L Hgb Hct MCV 98 H MCH 33 H RDW 15.6 H Eos % (Auto) Eos # (Auto) Seg Neuts % (Manual) Lymphocytes % (Manual) Seg Neutrophils # Man Lymphocytes # (Manual) APTT ABG pH POC ABG pCO2 POC ABG pO2 ABG pO2 ABG HCO3 ABG O2 Saturation ABG Base Excess ABG Hemoglobin Oxyhemoglobin Sodium 132 L Potassium Chloride Carbon Dioxide 20 L BUN Creatinine Glucose 131 H POC Glucose 124 H Calcium Phosphorus Magnesium C-Reactive Protein 29.40 H Total Protein Albumin Triglycerides 09/02/21 09/03/21 09/03/21 17:37 09:09 09:09 WBC 11.9 H RBC 2.99 L Hgb 9.5 L Hct 29.0 L MCV MCH RDW 15.6 H Eos % (Auto) Eos # (Auto) Seg Neuts % (Manual) Lymphocytes % (Manual) Seg Neutrophils # Man Lymphocytes # (Manual) APTT ABG pH POC ABG pCO2 POC ABG pO2 ABG pO2 ABG HCO3 ABG O2 Saturation ABG Base Excess ABG Hemoglobin Oxyhemoglobin Sodium 133 L Potassium Chloride Carbon Dioxide BUN 19 H Creatinine Glucose POC Glucose 108 H Calcium Phosphorus Magnesium C-Reactive Protein Total Protein Albumin Triglycerides 09/03/21 09/04/21 09/04/21 12:00 04:15 05:23 WBC RBC Hgb Hct MCV MCH RDW Eos % (Auto) Eos # (Auto) Seg Neuts % (Manual) Lymphocytes % (Manual) Seg Neutrophils # Man Lymphocytes # (Manual) APTT ABG pH POC ABG pCO2 POC ABG pO2 ABG pO2 ABG HCO3 ABG O2 Saturation ABG Base Excess ABG Hemoglobin Oxyhemoglobin Sodium 132 L Potassium 3.0 L Chloride Carbon Dioxide BUN Creatinine Glucose 113 H POC Glucose 64 L 109 H Calcium Phosphorus Magnesium C-Reactive Protein Total Protein Albumin 2.4 L Triglycerides 09/04/21 09/05/21 09/05/21 11:15 Unknown 23:59 WBC 12.1 H RBC 3.13 L Hgb 9.9 L Hct MCV MCH RDW Eos % (Auto) Eos # (Auto) Seg Neuts % (Manual) Lymphocytes % (Manual) Seg Neutrophils # Man Lymphocytes # (Manual) APTT ABG pH POC ABG pCO2 POC ABG pO2 ABG pO2 ABG HCO3 ABG O2 Saturation ABG Base Excess ABG Hemoglobin Oxyhemoglobin Sodium Potassium Chloride Carbon Dioxide BUN Creatinine Glucose 115 H POC Glucose 107 H Calcium Phosphorus Magnesium C-Reactive Protein Total Protein Albumin Triglycerides 09/06/21 09/06/21 09/06/21 04:00 04:00 05:38 WBC RBC 2.93 L Hgb 9.4 L Hct 28.6 L MCV 98 H MCH RDW 15.3 H Eos % (Auto) Eos # (Auto) Seg Neuts % (Manual) Lymphocytes % (Manual) Seg Neutrophils # Man Lymphocytes # (Manual) APTT ABG pH POC ABG pCO2 POC ABG pO2 ABG pO2 ABG HCO3 ABG O2 Saturation ABG Base Excess ABG Hemoglobin Oxyhemoglobin Sodium 135 L Potassium Chloride Carbon Dioxide 19 L BUN Creatinine 0.5 L Glucose 110 H POC Glucose 119 H Calcium Phosphorus Magnesium C-Reactive Protein Total Protein Albumin Triglycerides 09/06/21 09/06/21 09/06/21 12:04 16:13 23:42 WBC RBC Hgb Hct MCV MCH RDW Eos % (Auto) Eos # (Auto) Seg Neuts % (Manual) Lymphocytes % (Manual) Seg Neutrophils # Man Lymphocytes # (Manual) APTT ABG pH POC ABG pCO2 POC ABG pO2 ABG pO2 ABG HCO3 ABG O2 Saturation ABG Base Excess ABG Hemoglobin Oxyhemoglobin Sodium Potassium Chloride Carbon Dioxide BUN Creatinine Glucose POC Glucose 112 H 128 H 122 H Calcium Phosphorus Magnesium C-Reactive Protein Total Protein Albumin Triglycerides 09/07/21 09/07/21 09/07/21 04:47 06:00 06:00 WBC RBC 2.92 L Hgb 9.5 L Hct 28.2 L MCV MCH 33 H RDW Eos % (Auto) 5.7 H Eos # (Auto) 0.5 H Seg Neuts % (Manual) Lymphocytes % (Manual) Seg Neutrophils # Man Lymphocytes # (Manual) APTT ABG pH POC ABG pCO2 POC ABG pO2 ABG pO2 ABG HCO3 ABG O2 Saturation ABG Base Excess ABG Hemoglobin Oxyhemoglobin Sodium 136 L Potassium Chloride Carbon Dioxide BUN Creatinine Glucose 111 H POC Glucose 110 H Calcium 10.3 H Phosphorus Magnesium C-Reactive Protein Total Protein Albumin Triglycerides 09/07/21 09/07/21 09/07/21 12:14 16:13 23:38 WBC RBC Hgb Hct MCV MCH RDW Eos % (Auto) Eos # (Auto) Seg Neuts % (Manual) Lymphocytes % (Manual) Seg Neutrophils # Man Lymphocytes # (Manual) APTT ABG pH POC ABG pCO2 POC ABG pO2 ABG pO2 ABG HCO3 ABG O2 Saturation ABG Base Excess ABG Hemoglobin Oxyhemoglobin Sodium Potassium Chloride Carbon Dioxide BUN Creatinine Glucose POC Glucose 115 H 113 H 127 H Calcium Phosphorus Magnesium C-Reactive Protein Total Protein Albumin Triglycerides 09/08/21 09/08/21 09/08/21 05:11 11:50 15:55 WBC RBC Hgb Hct MCV MCH RDW Eos % (Auto) Eos # (Auto) Seg Neuts % (Manual) Lymphocytes % (Manual) Seg Neutrophils # Man Lymphocytes # (Manual) APTT ABG pH POC ABG pCO2 POC ABG pO2 ABG pO2 ABG HCO3 ABG O2 Saturation ABG Base Excess ABG Hemoglobin Oxyhemoglobin Sodium Potassium Chloride Carbon Dioxide BUN Creatinine Glucose POC Glucose 115 H 108 H 109 H Calcium Phosphorus Magnesium C-Reactive Protein Total Protein Albumin Triglycerides 09/09/21 09/09/21 01:31 05:24 WBC RBC Hgb Hct MCV MCH RDW Eos % (Auto) Eos # (Auto) Seg Neuts % (Manual) Lymphocytes % (Manual) Seg Neutrophils # Man Lymphocytes # (Manual) APTT ABG pH POC ABG pCO2 POC ABG pO2 ABG pO2 ABG HCO3 ABG O2 Saturation ABG Base Excess ABG Hemoglobin Oxyhemoglobin Sodium Potassium Chloride Carbon Dioxide BUN Creatinine Glucose POC Glucose 119 H 110 H Calcium Phosphorus Magnesium C-Reactive Protein Total Protein Albumin Triglycerides
[2021-09-09] MEDS: THIAMINE 100 MG TAB FEEDTUBE SCH (10:33)
[2021-09-09] MEDS: busPIRone 10 MG TAB FEEDTUBE SCH ×2 (10:33→21:33)
[2021-09-09] MEDS: FOLIC ACID 1 MG TAB FEEDTUBE SCH (10:33)
[2021-09-09] MEDS: HEPARIN 5,000 UNIT/1 ML VIAL SUB-Q SCH ×2 (10:33→21:33)
[2021-09-09] MEDS: MULTIVITAMIN / MINERAL ORAL LIQUID 15 ML PO SCH (10:34)
--- NOTE | 2021-09-09 13:58 | Progress Note ---
Assessment and Plan 76-year-old female patient with history of depression hypothyroidism, hypertension was admitted on 08/19/2021 with angioedema due to amlodipine intubated on 08/19/2021 stabilized and extubated on 08/25/2021 patient developed stridor and was reintubated on 08/26/2021 and subsequently underwent tracheostomy and PEG tube placement on 08/26/2021. Brief history and daily hospital course; 08/19: Patient started on tube feedings, potassium repleted, started on Benadryl and propofol for sedation. SSI started. Air leak present today however due to swelling of the tongue we will hold off extubation. [facility] plans to try FFP in the a.m. if swelling not better. 08/20: Angioedema slightly better so we will hold off FFP today. Updated son at bedside but he did not know what medication she was taking and states that she has not had angioedema in the past. Patient still remains on Versed and propofol. Was given 500 mL bolus overnight for hypotension and will repeat for hypotension. 08/21: Leak test today at bedside with RT shows no leak and will give FFP today. Tongue looks a bit smaller today but given no leak, CCM will not extubate today. Sedated with propofol and versed. Son at bedside today. 08/22: RT performed leak test in the AM and stated there was a leak noted and placed the patient on CPAP. She was sedated on versed at 4 and propofol at 30 but these are off for CPAP. Will removed lewis. Received FFP yesterday. Angioedema is improved. Leak test performed again with Dr. Bailey and no leak audible. Switched back to AC and sedation restarted 08/23: Remains on the vent and sedated. Cuff leak assessed again today by CCM, still no significant air leak noted. Per CCM keep patient intubated and sedated and continue IV steroids and histamine therapy for now. Fentanyl gtt added, plan to wean off versed for RASS goal of 0 to -1. 08/24: Arousable and appropriate on the vent and on low dose sedation. No cuff leak again today per RT. D/W CCM plan for CT neck w/o contrast for further eval. If CT neck normal, PSV trial and possible extubation tomorrow. 08/25: S/p extubation this am, audible stridor appreciated. S/p X2 doses of RaceEpi and IV solumedrol X1 dose. Patient currently stable on 4L NC, SPO2 at 9 4%. Patient is low threshold for re-intubation, case discussed with anesthesia in case of any decompensation. D/w CCM patient will need a trach if she is reintubated. Plan of care was thoroughly discussed with patient's son at the bedside by the ground crew lines person. All question and concerns were addressed at this time. 08/26: Reintubated yesterday due to stridor. General Surgery consulted, plan for possible trach and PEG today. Hypotension resolved this am most likely due to sedation for intubation, VSS today. Wean SPO2 as tolerated for SPO2 above 90%. Continue to monitor and replete electrolytes as needed. 08/27: s/p Trach and PEG overnight. Patient is stable on the vent this am, sedated on propofol and fentanyl. okay to use PEG-tube per general surgery, resume TF as ordered. PRN Analgesia added for pain control, wean off sedation as tolerated. Plan for possible PSV trial tomorrow. 08/28: Stable on the vent, still on sedation. Schedule tramadol and PRN fentanyl added for pain control, plan to wean sedation as tolerated. Possible PSV trial tomorrow if off sedation. PRN Xanax for anxiety. BR added for constipation. 08/29: Back on propofol from overnight due to increase anxiety. Patient is awake and calm this am, will D/C propofol and use PRN Xanax as needed for anxiety. Continue schedule tramadol and PRN fentanyl for pain control. Patient with increase secretion today, orally and via trach. Patient is also febrile with spike in WBCs, Chest XR ordered and will panculture. Hold off IV abx for now. Will also remove lewis catheter, straight/cath and bladder scan per protocol. 08/30: Ordered mag citrate today as suppositories do not yield any results yesterday, will start bladder training today. Remains afebrile. PSV per RT. 08/31: D/w Dr Jenkins, will attempt t peice trial for 24 hrs. Ultimately dispo for this patient will be SNF if able to tolerate trial. Paged in afternoon regarding projectile vomiting. No residual noted in PEG tube. KUB ordered. Will likely order Mag citrate as patient has not had BM. 5/18: This AM noted to have bleeding from trach site and peg tube noted to be misplaced with brown drainage. Dr. Mays alerted and came to bedside. RT states suture was removed from trach which stopped the bleeding. Neck and Abd/Pelvis CT ordered. Abd CT showed pef displacement and surgery contacted vascular surgery who will take the patient to IR. Stat CBC and BMP obtained. ID consulted re PCN allergy and sputum culture sent re concern for Pseudumonas in trach aspirate. meds changed to iv 09/02-patient seen at bedside. Awake-she reports coughing and asking for cough medicine. Pt is s/p peg placement. Pt is NPO and on gently IV fluid for hydration. Will start feeding per surgery. Reviewed lab and v/s. Patient not in acute distress. I discussed plan of care with Dr Jenkins-will restart tube feeding, Heprin subcutaneous, continue IV diflucan and f/u with ID reces for abx. Will continue PS [id number] T-piece tomorrow if patient is stable. 09/03: Patient having bilious drainage from PEG tube entrance site, awaiting surgery around. Started on mineral enemas, T-max 102, aztreonam IV, then discontinued, RN to monitor disimpact the patient. Patient will be started on TPN. PICC consult for PICC 09/04: Dr. Young recommends holding off tube feeds and she inflated the balloon for G-tube. Gastrografin x-ray completed which states PEG tube is in stomach without extravasation and tube feedings will be restarted. Continues on T- piece. No acute events reported overnight. MIVF continues. 09/05: Patient restarted on tube feedings overnight and has been tolerating, restarted p.o. medications. Per RN patient has had multiple large BMs. Patient is a tolerating T-piece and will be transferred to the floor today. 09/06: Awaiting placement to snf. d/w cm during rounds this am. 09/07; awaiting placement LTAC/SNF/rehab 09/08: Patient on 5 to 6 L O2 with T-piece. Discharge when medically stable and when placement is processed. 09/09: Had Peer to peer with insurance company today for LTAC placement. Patient currently on 5 to 6 L with T-piece which according to her insurance not a strong criteria for LTAC placement. Patient will be referred for intermediate placement by insurance, outpatient case manager updated. Continue current management and wean off from O2 as tolerated. Assessment and plan: Neuro: h/o depression -Restart home thiamine, multivitamin, Zoloft, BuSpar and as needed Xanax -Tramadol prn -Avoid delirium -Reorientation as needed -Maintain sleep-wake cycle -As needed analgesia Cardiac: h/o htn -Blood pressure monitoring per protocol -Hydralazine as needed -resume home antihypertenisve regimen when available and if needed Respiratory: Acute hypoxic respiratory failure, angioedema -CCM consulted, appreciate recommendations -Intubated in the emergency department on 08/19 with 7.50 ETT at 24 the lips, extubated 08/25 but reintubated shortly after -s/p trach and peg 08/26 -T piece trials -VAP bundle -SPO2 monitoring -s/p Benadryl, Pepcid, Solu-Medrol GI: MO, malpositioned peg tube -s/p peg 08/26 -24 hours -300 mL -PPI -NTR consulted for tube feedings -BR: Senna,colace, miralax -08/29 suppository, 08/30 mag citrate, 08/31 lactulose q2 -CT abd/pelvis shows misposition of PEG -IR consult by surgery for replacement in IR lab under flouro -S/p 09/01 EGD, removal of PEG tube, laparoscopic exploration, lysis of adhesions, stable closure of gastrotomy site, placement of gastric tube 20 [place] -Dr. Young replaced air to gtube balloon and gastrografen xray showed no extravastation on 09/04 -tolerating TF : Urinary retention -Strict intake and output -Renally dose medications -Avoid nephrotoxic medications -Daily weights -Trend BMP -Lewis reinserted -bladder scan and training ID: Sepsis/SIRS secondary to right lower lobe pneumonia, Intra-Op finding of esophageal candidiasis -Seen on CT A/P -ID consulted, appreciate recommendations -Per ID: Sputum culture growing usual respiratory david and aztreonam discontinued -Vancomycin discontinued as MRSA PCR negative -Antibiotic therapy: Levofloxacin for 5 days and fluconazole for 14 days -f/u blood culture -Monitor WBC and temperature curve Endo: h/o hypothyroidism -continue synthroid -Avoid hypoglycemia -SSI -Accu-Cheks q. 6 Heme: Leukocytosis -Trend CBC -Transfuse hemoglobin less than 7 -Monitor for signs of bleeding -SCDs to BLE while in bed -heparin subq Wean oxygen as tolerated We will closely monitor the patient and adjust management as needed Plan of care reviewed with the patient and nurse and the case management Awaiting placement SNF/LTAC/subacute. CM assisting with discharge planning Subjective Date of service: 09/09/21 Interval history: Patient seen and examined. Medical records and medication list reviewed. No acute event overnight noted by the RN. Patient tolerating tube feeding diet, remains on trach with T-piece Discussed plan of care at bedside with patient. Objective - Exam Narrative Exam: General appearance: Present: no acute distress, well-nourished, obese, other (Tracheostomy on T-piece, 6 L saturating well) - EENT Eyes: Present: PERRL, EOM intact ENT: other (Tracheostomy in place) - Neck Neck: Present: supple, normal ROM - Respiratory Respiratory effort: normal Respiratory: bilateral: diminished, rhonchi, negative: rales, wheezing - Cardiovascular Rhythm: regular Heart Sounds: Present: S1 & S2 - Extremities Extremities: no ischemia, No edema - Abdominal General gastrointestinal: soft, non-tender, non-distended, normal bowel sounds - Integumentary Integumentary: Present: clear, warm - Psychiatric Psychiatric: appropriate mood/affect, cooperative - Neurologic Neurologic: moves all extremities - Constitutional Vitals: Vital Signs - 12hr 09/09/21 09/09/21 09/09/21 02:52 03:04 04:18 Temperature Pulse Rate 90 Respiratory 18 Rate Blood Pressure 128/86 O2 Sat by Pulse 99 99 Oximetry O2 Sat by Pulse 99 Oximetry [ Assessment] 09/09/21 09/09/21 09/09/21 08:18 08:34 09:13 Temperature 98.5 F Pulse Rate 105 H Respiratory 18 Rate Blood Pressure 117/90 O2 Sat by Pulse 97 100 99 Oximetry O2 Sat by Pulse 100 Oximetry [ Assessment] 09/09/21 12:13 Temperature 98.4 F Pulse Rate 84 Respiratory 18 Rate Blood Pressure 129/77 O2 Sat by Pulse 93 Oximetry O2 Sat by Pulse Oximetry [ Assessment] - Labs CBC & Chem 7: 09/07/21 06:00 09/07/21 06:00 Labs: Abnormal lab results 09/08/21 09/09/21 09/09/21 Range/Units 15:55 01:31 05:24 POC Glucose 109 H 119 H 110 H (70-105) mg/dL 09/09/21 Range/Units 12:11 POC Glucose 115 H (70-105) mg/dL
[2021-09-09] MEDS: FLUCONAZOLE 200 MG TAB FEEDTUBE SCH (21:33)
[2021-09-09] MEDS: SENNOSIDES ORAL LIQD 8.8 MG/5 ML ORAL LIQD FEEDTUBE SCH (21:33)
[2021-09-09] MEDS: diphenhydrAMINE 25 MG CAP PO PRN (21:38)
[2021-09-10] MEDS: SUCRALFATE 1 GM/10 ML ORAL LIQD FEEDTUBE SCH ×2 (01:34→06:01)
[2021-09-10] MEDS: INSULIN REGULAR, HUMAN 100 UNITS/1 ML SUB-Q SCH (01:34)
[2021-09-10 05:22] LABS: Basophils # (Auto) 0.1 K/mm3 (0.0-0.1); Basophils % (Auto) 1.2 % (0.0-1.8); Eosinophils # (Auto) 0.6 K/mm3 (0.0-0.4); Eosinophils % (Auto) 5.2 % (0.0-4.3); Hematocrit 31.3 % (30.3-42.9); Hemoglobin 10.3 gm/dl (10.1-14.3); Lymphocytes # (Auto) 3.4 K/mm3 (1.2-5.4); Lymphocytes % (Auto) 31.3 % (13.4-35.0); Mean Corpuscular HGB Conc 33 % (30-34); Mean Corpuscular Volume 96 fl (79-97); Monocytes # (Auto) 0.7 K/mm3 (0.0-0.8); Monocytes % (Auto) 6.6 % (0.0-7.3); Platelet Count 431 K/mm3 (140-440); Red Blood Count 3.27 M/mm3 (3.65-5.03); Red Cell Distribution Width 14.8 % (13.2-15.2)
[2021-09-10 05:34] LABS: Blood Urea Nitrogen 14 mg/dL (7-17); Calcium 10.8 mg/dL (8.4-10.2); Hemolysis Index 0
[2021-09-10 05:41] LABS: BUN/Creatinine Ratio 20
[2021-09-10] MEDS: LEVOTHYROXINE 150 MCG TAB FEEDTUBE SCH (06:01)
[2021-09-10] MEDS: LORazepam 0.5 MG TAB FEEDTUBE PRN (06:02)
[2021-09-10 08:54] VITALS: BP 115/82
[2021-09-10] MEDS: HEPARIN 5,000 UNIT/1 ML VIAL SUB-Q SCH (09:28)
[2021-09-10] MEDS: busPIRone 10 MG TAB FEEDTUBE SCH (09:28)
[2021-09-10] MEDS: THIAMINE 100 MG TAB FEEDTUBE SCH (09:28)
[2021-09-10] MEDS: MULTIVITAMIN / MINERAL ORAL LIQUID 15 ML PO SCH (09:28)
[2021-09-10] MEDS: FOLIC ACID 1 MG TAB FEEDTUBE SCH (09:28)
--- NOTE | 2021-09-10 10:04 | Progress Note ---
Assessment and Plan 76 y/o female with acute respiratory failure secondary to angioedema 09/10/21: Stable pulm status. Awaiting placement 09/09/21: Stable pulm status. Await placement. Trach care. 09/08/21: No new recs pulm riddle. continue trach care and wean FiO2 as tolerated. 09/07/21: Stable pulm status, hopefully placement is being pursued. Will continue to follow. Stable for transfer pulm riddle when bed available 09/06/21: Continue T-piece. Continue feeds. 09/05/21: Feeding patient and tolerating. No TPN needed right now. Change meds back to PO. Stable for transfer to floor. 09/04/21: Will ask surgery how they feel about possibly downsizing trach to a 6 cuffed. patient not intubated for lung reasons, all upper airway issues. If so then could have speech assess with PMV and possible swallow eval. If tolerated 6 and 4 is need could go to that faster and then have speech see again. Goal of this is to have her on TPN for as little time as possible. Follow up surgery recs after they see patient today. Guarded prognosis. 09/03/21: Enema today. Await surgery eval and recs. Continue T-piece and only rest on PSV if absolutely needed. Abx per ID 09/02/21: Resume feeding today. Tolerating PSV trial, if continues will attempt T-piece tomorrow. Restart Heparin. Guarded prognosis. Back on Diflucan 09/01/21: Hold on any weaning today. Hold heparin for 24 hours. Surgery spoke with IR, they will attempt to replace peg tube. Changed as many meds to IV as possible. ID has now been consulted so will defer all abx therapy to them. Guarded prognosis, family not at bedside this am. 08/31/21: Dropped PSV to 10/6, if tolerates then in a few hours place on T- piece. Rest on PSV tonight. Then 24 hours of T-piece tomorrow. Most likely transfer out of unit on . Will discuss urine situation with nursing sta ff. Voided and has had no issues so will not place lewis. Spiked a temp. Repeat cultures with next temperature spike and will start on Diflucan empirically for oral candidiasis. 08/30/21: Start bladder training q4 hours. All cultures negative thus far and no further temps. Given Mag Citrate today, if no BM in the next 24, will start some scheduled lactulose. Continue PSV as tolerated. 08/29/21: Agree with hernandez culture, hold on abx, remove lewis. Repeat CXR. Per nursing has not had bowel movement in at least 4 days. Check KUB. PSV trials to start soon 08/28/21: would like to get patient off of continuous sedation so will scheduled tramadol therapy with hopes of weaning Fent Drip. Will order fent 50Q2 PRN pain to help with this as well. Will likely need to be placed on bowel regimen to prevent constipation. Once off continuous drips, can start PSV trials. 08/27/21: Start using peg. Continue PRN fent pushes and will add PRN tramadol as well. Wean sedation off. Can start PSV trials as early as tomorrow. 1. Agree with IV steroids 2. Suggest adding scheduled benadryl and pepcid 3. If swelling does not improve in the next 24-48 hours, suggest a trial of FFP 4. Wean FiO2 for sats > 88% CCT 31 minutes Subjective Date of service: 09/10/21 Interval history: No acute events. Still waiting for placement. Objective Vital Signs - 12hr 09/10/21 09/10/21 04:44 08:25 Temperature 98.3 F Pulse Rate 112 H 101 H Respiratory 20 Rate Blood Pressure 123/83 115/82 O2 Sat by Pulse 100 100 Oximetry Constitutional: no acute distress, other (Sedated) ENT: other (orally intubated, macroglossia) Neck: supple, no lymphadenopathy Effort: other (Supported on ventilator) Ascultation: Bilateral: clear Percussion: Bilateral: not dull Cardiovascular: regular rate and rhythm Gastrointestinal: normoactive bowel sounds Extremities: no cyanosis, no edema, pink and warm Neurologic: other (Sedated) Psychiatric: other (Sedated) CBC and BMP: 09/10/21 04:35 09/10/21 04:35 ABG, PT/INR, D-dimer: ABG ABG pH 7.516 pH Units (7.350-7.450) H 08/27/21 03:56 POC ABG pCO2 30.1 mmHg (32.0-48.0) L 08/22/21 10:16 ABG pCO2 34.4 mm Hg 08/27/21 03:56 POC ABG pO2 109.5 mmHg (83-108) H 08/22/21 10:16 ABG pO2 117.0 mm Hg (80.0-90.0) H 08/27/21 03:56 POC ABG HCO3 23.5 08/22/21 10:16 ABG O2 Saturation 98.4 % (95.0-99.0) 08/27/21 03:56 PT/INR, D-dimer PT 12.8 Sec. (12.2-14.9) 08/19/21 02:24 INR 0.87 (0.87-1.13) 08/19/21 02:24 Abnormal lab findings: Abnormal Labs 08/19/21 08/19/21 08/19/21 02:24 02:24 02:24 WBC 13.9 H RBC Hgb Hct MCV 98 H MCH 33 H RDW 15.7 H Eos % (Auto) Eos # (Auto) Seg Neuts % (Manual) Lymphocytes % (Manual) 52.0 H Seg Neutrophils # Man Lymphocytes # (Manual) 7.2 H APTT 20.0 L ABG pH POC ABG pCO2 POC ABG pO2 ABG pO2 ABG HCO3 ABG O2 Saturation ABG Base Excess ABG Hemoglobin Oxyhemoglobin Sodium Potassium 3.3 L Chloride Carbon Dioxide 20 L BUN Creatinine Glucose 143 H POC Glucose Calcium Phosphorus Magnesium C-Reactive Protein Total Protein 8.3 H Albumin Triglycerides 08/19/21 08/19/21 08/19/21 06:15 10:20 11:10 WBC RBC Hgb Hct MCV MCH RDW Eos % (Auto) Eos # (Auto) Seg Neuts % (Manual) Lymphocytes % (Manual) Seg Neutrophils # Man Lymphocytes # (Manual) APTT ABG pH 7.465 H 7.503 H POC ABG pCO2 POC ABG pO2 ABG pO2 177.7 H 90.5 H ABG HCO3 ABG O2 Saturation 99.2 H ABG Base Excess ABG Hemoglobin Oxyhemoglobin Sodium Potassium Chloride Carbon Dioxide BUN Creatinine Glucose POC Glucose 171 H Calcium Phosphorus Magnesium C-Reactive Protein Total Protein Albumin Triglycerides 08/19/21 08/20/21 08/20/21 16:33 00:03 04:25 WBC RBC Hgb Hct MCV 98 H MCH 33 H RDW 15.9 H Eos % (Auto) Eos # (Auto) Seg Neuts % (Manual) 83.0 H Lymphocytes % (Manual) Seg Neutrophils # Man Lymphocytes # (Manual) APTT ABG pH POC ABG pCO2 POC ABG pO2 ABG pO2 ABG HCO3 ABG O2 Saturation ABG Base Excess ABG Hemoglobin Oxyhemoglobin Sodium Potassium Chloride Carbon Dioxide BUN Creatinine Glucose POC Glucose 179 H 133 H Calcium Phosphorus Magnesium C-Reactive Protein Total Protein Albumin Triglycerides 08/20/21 08/20/21 08/20/21 04:25 04:30 05:39 WBC RBC Hgb Hct MCV MCH RDW Eos % (Auto) Eos # (Auto) Seg Neuts % (Manual) Lymphocytes % (Manual) Seg Neutrophils # Man Lymphocytes # (Manual) APTT ABG pH POC ABG pCO2 POC ABG pO2 ABG pO2 95.5 H ABG HCO3 ABG O2 Saturation ABG Base Excess -2.2 L ABG Hemoglobin Oxyhemoglobin Sodium Potassium Chloride Carbon Dioxide 21 L BUN Creatinine Glucose 143 H POC Glucose 168 H Calcium 8.2 L Phosphorus Magnesium C-Reactive Protein Total Protein Albumin Triglycerides 08/20/21 08/20/21 08/21/21 12:04 16:38 00:12 WBC RBC Hgb Hct MCV MCH RDW Eos % (Auto) Eos # (Auto) Seg Neuts % (Manual) Lymphocytes % (Manual) Seg Neutrophils # Man Lymphocytes # (Manual) APTT ABG pH POC ABG pCO2 POC ABG pO2 ABG pO2 ABG HCO3 ABG O2 Saturation ABG Base Excess ABG Hemoglobin Oxyhemoglobin Sodium Potassium Chloride Carbon Dioxide BUN Creatinine Glucose POC Glucose 151 H 135 H 123 H Calcium Phosphorus Magnesium C-Reactive Protein Total Protein Albumin Triglycerides 08/21/21 08/21/21 08/21/21 04:58 04:58 04:59 WBC RBC 3.64 L Hgb Hct MCV 100 H MCH RDW 16.4 H Eos % (Auto) Eos # (Auto) Seg Neuts % (Manual) Lymphocytes % (Manual) Seg Neutrophils # Man Lymphocytes # (Manual) APTT ABG pH POC ABG pCO2 POC ABG pO2 ABG pO2 ABG HCO3 ABG O2 Saturation ABG Base Excess -2.6 L ABG Hemoglobin 11.6 L Oxyhemoglobin Sodium Potassium 3.5 L Chloride 109.5 H Carbon Dioxide 19 L BUN Creatinine Glucose 159 H POC Glucose Calcium 8.3 L Phosphorus Magnesium C-Reactive Protein Total Protein Albumin Triglycerides 08/21/21 08/21/21 08/21/21 05:22 11:21 16:29 WBC RBC Hgb Hct MCV MCH RDW Eos % (Auto) Eos # (Auto) Seg Neuts % (Manual) Lymphocytes % (Manual) Seg Neutrophils # Man Lymphocytes # (Manual) APTT ABG pH POC ABG pCO2 POC ABG pO2 ABG pO2 ABG HCO3 ABG O2 Saturation ABG Base Excess ABG Hemoglobin Oxyhemoglobin Sodium Potassium Chloride Carbon Dioxide BUN Creatinine Glucose POC Glucose 143 H 133 H 122 H Calcium Phosphorus Magnesium C-Reactive Protein Total Protein Albumin Triglycerides 08/22/21 08/22/21 08/22/21 00:03 03:54 03:54 WBC RBC 3.53 L Hgb Hct MCV 100 H MCH 33 H RDW 16.7 H Eos % (Auto) Eos # (Auto) Seg Neuts % (Manual) Lymphocytes % (Manual) Seg Neutrophils # Man Lymphocytes # (Manual) APTT ABG pH POC ABG pCO2 POC ABG pO2 ABG pO2 ABG HCO3 ABG O2 Saturation ABG Base Excess ABG Hemoglobin Oxyhemoglobin Sodium Potassium Chloride 107.5 H Carbon Dioxide BUN Creatinine Glucose 123 H POC Glucose 132 H Calcium Phosphorus Magnesium C-Reactive Protein Total Protein Albumin Triglycerides 08/22/21 08/22/21 08/22/21 04:40 06:08 10:16 WBC RBC Hgb Hct MCV MCH RDW Eos % (Auto) Eos # (Auto) Seg Neuts % (Manual) Lymphocytes % (Manual) Seg Neutrophils # Man Lymphocytes # (Manual) APTT ABG pH 7.454 H 7.511 H POC ABG pCO2 30.1 L POC ABG pO2 109.5 H ABG pO2 109.8 H ABG HCO3 ABG O2 Saturation ABG Base Excess ABG Hemoglobin Oxyhemoglobin Sodium Potassium Chloride Carbon Dioxide BUN Creatinine Glucose POC Glucose 137 H Calcium Phosphorus Magnesium C-Reactive Protein Total Protein Albumin Triglycerides 08/22/21 08/22/21 08/22/21 10:27 10:27 11:13 WBC RBC Hgb Hct MCV 99 H MCH RDW 16.6 H Eos % (Auto) Eos # (Auto) Seg Neuts % (Manual) Lymphocytes % (Manual) Seg Neutrophils # Man Lymphocytes # (Manual) APTT ABG pH POC ABG pCO2 POC ABG pO2 ABG pO2 ABG HCO3 ABG O2 Saturation ABG Base Excess ABG Hemoglobin Oxyhemoglobin Sodium Potassium Chloride Carbon Dioxide BUN Creatinine Glucose 129 H POC Glucose 125 H Calcium Phosphorus Magnesium C-Reactive Protein Total Protein Albumin Triglycerides 08/22/21 08/23/21 08/23/21 23:39 04:11 04:11 WBC RBC Hgb Hct MCV 98 H MCH 33 H RDW 16.1 H Eos % (Auto) Eos # (Auto) Seg Neuts % (Manual) Lymphocytes % (Manual) Seg Neutrophils # Man Lymphocytes # (Manual) APTT ABG pH POC ABG pCO2 POC ABG pO2 ABG pO2 ABG HCO3 ABG O2 Saturation ABG Base Excess ABG Hemoglobin Oxyhemoglobin Sodium Potassium Chloride Carbon Dioxide BUN Creatinine Glucose 148 H POC Glucose 117 H Calcium Phosphorus Magnesium C-Reactive Protein Total Protein Albumin Triglycerides 08/23/21 08/23/21 08/23/21 05:32 11:02 18:04 WBC RBC Hgb Hct MCV MCH RDW Eos % (Auto) Eos # (Auto) Seg Neuts % (Manual) Lymphocytes % (Manual) Seg Neutrophils # Man Lymphocytes # (Manual) APTT ABG pH POC ABG pCO2 POC ABG pO2 ABG pO2 ABG HCO3 ABG O2 Saturation ABG Base Excess ABG Hemoglobin Oxyhemoglobin Sodium Potassium Chloride Carbon Dioxide BUN Creatinine Glucose POC Glucose 173 H 146 H 129 H Calcium Phosphorus Magnesium C-Reactive Protein Total Protein Albumin Triglycerides 08/24/21 08/24/21 08/24/21 00:27 05:20 06:00 WBC RBC Hgb Hct MCV MCH RDW Eos % (Auto) Eos # (Auto) Seg Neuts % (Manual) Lymphocytes % (Manual) Seg Neutrophils # Man Lymphocytes # (Manual) APTT ABG pH 7.481 H POC ABG pCO2 POC ABG pO2 ABG pO2 95.8 H ABG HCO3 29.8 H ABG O2 Saturation ABG Base Excess 5.8 H ABG Hemoglobin Oxyhemoglobin Sodium Potassium Chloride Carbon Dioxide BUN Creatinine Glucose POC Glucose 146 H 159 H Calcium Phosphorus Magnesium C-Reactive Protein Total Protein Albumin Triglycerides 08/24/21 08/25/21 08/25/21 11:37 05:13 11:38 WBC RBC Hgb Hct MCV MCH RDW Eos % (Auto) Eos # (Auto) Seg Neuts % (Manual) Lymphocytes % (Manual) Seg Neutrophils # Man Lymphocytes # (Manual) APTT ABG pH POC ABG pCO2 POC ABG pO2 ABG pO2 ABG HCO3 ABG O2 Saturation ABG Base Excess ABG Hemoglobin Oxyhemoglobin Sodium Potassium Chloride Carbon Dioxide BUN Creatinine Glucose POC Glucose 154 H 121 H 135 H Calcium Phosphorus Magnesium C-Reactive Protein Total Protein Albumin Triglycerides 08/25/21 08/25/21 08/26/21 16:00 17:12 00:04 WBC RBC Hgb Hct MCV MCH RDW Eos % (Auto) Eos # (Auto) Seg Neuts % (Manual) Lymphocytes % (Manual) Seg Neutrophils # Man Lymphocytes # (Manual) APTT ABG pH POC ABG pCO2 POC ABG pO2 ABG pO2 78.3 L ABG HCO3 32.7 H ABG O2 Saturation ABG Base Excess 6.3 H ABG Hemoglobin 11.0 L Oxyhemoglobin 93.9 L Sodium Potassium Chloride Carbon Dioxide BUN Creatinine Glucose POC Glucose 179 H 140 H Calcium Phosphorus Magnesium C-Reactive Protein Total Protein Albumin Triglycerides 08/26/21 08/26/21 08/26/21 04:22 04:59 04:59 WBC 12.9 H RBC 3.54 L Hgb Hct MCV MCH RDW 15.6 H Eos % (Auto) Eos # (Auto) Seg Neuts % (Manual) Lymphocytes % (Manual) Seg Neutrophils # Man Lymphocytes # (Manual) APTT ABG pH 7.533 H POC ABG pCO2 POC ABG pO2 ABG pO2 76.9 L ABG HCO3 29.2 H ABG O2 Saturation ABG Base Excess 6.4 H ABG Hemoglobin 11.6 L Oxyhemoglobin Sodium Potassium 3.5 L Chloride Carbon Dioxide BUN 28 H Creatinine Glucose 139 H POC Glucose Calcium Phosphorus Magnesium C-Reactive Protein Total Protein Albumin Triglycerides 08/26/21 08/26/21 08/26/21 05:34 11:21 16:52 WBC RBC Hgb Hct MCV MCH RDW Eos % (Auto) Eos # (Auto) Seg Neuts % (Manual) Lymphocytes % (Manual) Seg Neutrophils # Man Lymphocytes # (Manual) APTT ABG pH POC ABG pCO2 POC ABG pO2 ABG pO2 ABG HCO3 ABG O2 Saturation ABG Base Excess ABG Hemoglobin Oxyhemoglobin Sodium Potassium Chloride Carbon Dioxide BUN Creatinine Glucose POC Glucose 152 H 145 H 151 H Calcium Phosphorus Magnesium C-Reactive Protein Total Protein Albumin Triglycerides 08/27/21 08/27/21 08/27/21 03:56 04:25 04:25 WBC 12.4 H RBC 3.39 L Hgb Hct MCV 98 H MCH RDW 15.8 H Eos % (Auto) Eos # (Auto) Seg Neuts % (Manual) Lymphocytes % (Manual) Seg Neutrophils # Man Lymphocytes # (Manual) APTT ABG pH 7.516 H POC ABG pCO2 POC ABG pO2 ABG pO2 117.0 H ABG HCO3 27.2 H ABG O2 Saturation ABG Base Excess 4.3 H ABG Hemoglobin 11.1 L Oxyhemoglobin Sodium Potassium Chloride Carbon Dioxide BUN 27 H Creatinine Glucose POC Glucose Calcium Phosphorus 2.10 L Magnesium 2.50 H C-Reactive Protein Total Protein Albumin Triglycerides 08/27/21 08/27/21 08/27/21 04:25 17:31 23:37 WBC RBC Hgb Hct MCV MCH RDW Eos % (Auto) Eos # (Auto) Seg Neuts % (Manual) Lymphocytes % (Manual) Seg Neutrophils # Man Lymphocytes # (Manual) APTT ABG pH POC ABG pCO2 POC ABG pO2 ABG pO2 ABG HCO3 ABG O2 Saturation ABG Base Excess ABG Hemoglobin Oxyhemoglobin Sodium Potassium Chloride Carbon Dioxide BUN Creatinine Glucose POC Glucose 111 H 122 H Calcium Phosphorus Magnesium C-Reactive Protein Total Protein Albumin Triglycerides 200 H 08/28/21 08/28/21 08/28/21 04:11 04:11 05:01 WBC 17.2 H RBC 3.29 L Hgb Hct MCV 99 H MCH RDW 16.2 H Eos % (Auto) Eos # (Auto) Seg Neuts % (Manual) Lymphocytes % (Manual) Seg Neutrophils # Man Lymphocytes # (Manual) APTT ABG pH POC ABG pCO2 POC ABG pO2 ABG pO2 ABG HCO3 ABG O2 Saturation ABG Base Excess ABG Hemoglobin Oxyhemoglobin Sodium Potassium Chloride 109.2 H Carbon Dioxide BUN 22 H Creatinine Glucose 137 H POC Glucose 133 H Calcium Phosphorus Magnesium C-Reactive Protein Total Protein Albumin Triglycerides 08/28/21 08/28/21 08/29/21 11:18 17:34 00:37 WBC RBC Hgb Hct MCV MCH RDW Eos % (Auto) Eos # (Auto) Seg Neuts % (Manual) Lymphocytes % (Manual) Seg Neutrophils # Man Lymphocytes # (Manual) APTT ABG pH POC ABG pCO2 POC ABG pO2 ABG pO2 ABG HCO3 ABG O2 Saturation ABG Base Excess ABG Hemoglobin Oxyhemoglobin Sodium Potassium Chloride Carbon Dioxide BUN Creatinine Glucose POC Glucose 144 H 131 H 125 H Calcium Phosphorus Magnesium C-Reactive Protein Total Protein Albumin Triglycerides 08/29/21 08/29/21 08/29/21 04:12 04:12 06:17 WBC 22.7 H RBC 3.35 L Hgb Hct MCV 98 H MCH RDW 16.0 H Eos % (Auto) Eos # (Auto) Seg Neuts % (Manual) Lymphocytes % (Manual) Seg Neutrophils # Man Lymphocytes # (Manual) APTT ABG pH POC ABG pCO2 POC ABG pO2 ABG pO2 ABG HCO3 ABG O2 Saturation ABG Base Excess ABG Hemoglobin Oxyhemoglobin Sodium Potassium Chloride Carbon Dioxide BUN 19 H Creatinine Glucose 121 H POC Glucose 117 H Calcium Phosphorus Magnesium C-Reactive Protein Total Protein Albumin Triglycerides 08/29/21 08/29/21 08/30/21 11:54 18:00 00:17 WBC RBC Hgb Hct MCV MCH RDW Eos % (Auto) Eos # (Auto) Seg Neuts % (Manual) Lymphocytes % (Manual) Seg Neutrophils # Man Lymphocytes # (Manual) APTT ABG pH POC ABG pCO2 POC ABG pO2 ABG pO2 ABG HCO3 ABG O2 Saturation ABG Base Excess ABG Hemoglobin Oxyhemoglobin Sodium Potassium Chloride Carbon Dioxide BUN Creatinine Glucose POC Glucose 123 H 117 H 115 H Calcium Phosphorus Magnesium C-Reactive Protein Total Protein Albumin Triglycerides 08/30/21 08/30/21 08/30/21 03:22 03:22 11:05 WBC 20.3 H RBC 3.29 L Hgb Hct MCV MCH RDW 15.6 H Eos % (Auto) Eos # (Auto) Seg Neuts % (Manual) 87.0 H Lymphocytes % (Manual) 10.0 L Seg Neutrophils # Man 17.7 H Lymphocytes # (Manual) APTT ABG pH POC ABG pCO2 POC ABG pO2 ABG pO2 ABG HCO3 ABG O2 Saturation ABG Base Excess ABG Hemoglobin Oxyhemoglobin Sodium Potassium Chloride Carbon Dioxide BUN 21 H Creatinine Glucose 129 H POC Glucose 110 H Calcium Phosphorus Magnesium C-Reactive Protein Total Protein Albumin Triglycerides 08/31/21 08/31/21 08/31/21 00:10 05:26 05:26 WBC 13.2 H RBC 3.28 L Hgb Hct MCV MCH RDW 15.9 H Eos % (Auto) Eos # (Auto) Seg Neuts % (Manual) Lymphocytes % (Manual) Seg Neutrophils # Man Lymphocytes # (Manual) APTT ABG pH POC ABG pCO2 POC ABG pO2 ABG pO2 ABG HCO3 ABG O2 Saturation ABG Base Excess ABG Hemoglobin Oxyhemoglobin Sodium Potassium Chloride Carbon Dioxide BUN 23 H Creatinine Glucose 123 H POC Glucose 138 H Calcium Phosphorus Magnesium C-Reactive Protein Total Protein Albumin Triglycerides 08/31/21 08/31/21 08/31/21 06:13 11:27 17:19 WBC RBC Hgb Hct MCV MCH RDW Eos % (Auto) Eos # (Auto) Seg Neuts % (Manual) Lymphocytes % (Manual) Seg Neutrophils # Man Lymphocytes # (Manual) APTT ABG pH POC ABG pCO2 POC ABG pO2 ABG pO2 ABG HCO3 ABG O2 Saturation ABG Base Excess ABG Hemoglobin Oxyhemoglobin Sodium Potassium Chloride Carbon Dioxide BUN Creatinine Glucose POC Glucose 135 H 149 H 152 H Calcium Phosphorus Magnesium C-Reactive Protein Total Protein Albumin Triglycerides 08/31/21 09/01/21 09/01/21 23:29 05:43 11:05 WBC RBC Hgb Hct MCV MCH RDW Eos % (Auto) Eos # (Auto) Seg Neuts % (Manual) Lymphocytes % (Manual) Seg Neutrophils # Man Lymphocytes # (Manual) APTT ABG pH POC ABG pCO2 POC ABG pO2 ABG pO2 ABG HCO3 ABG O2 Saturation ABG Base Excess ABG Hemoglobin Oxyhemoglobin Sodium Potassium Chloride Carbon Dioxide BUN Creatinine Glucose POC Glucose 121 H 119 H 113 H Calcium Phosphorus Magnesium C-Reactive Protein Total Protein Albumin Triglycerides 09/01/21 09/01/21 09/01/21 11:42 11:42 23:40 WBC 13.0 H RBC 3.38 L Hgb Hct MCV 98 H MCH RDW Eos % (Auto) Eos # (Auto) Seg Neuts % (Manual) Lymphocytes % (Manual) Seg Neutrophils # Man Lymphocytes # (Manual) APTT ABG pH POC ABG pCO2 POC ABG pO2 ABG pO2 ABG HCO3 ABG O2 Saturation ABG Base Excess ABG Hemoglobin Oxyhemoglobin Sodium Potassium Chloride Carbon Dioxide BUN 18 H Creatinine Glucose 111 H POC Glucose 139 H Calcium Phosphorus Magnesium C-Reactive Protein Total Protein Albumin Triglycerides 09/02/21 09/02/21 09/02/21 04:08 04:08 05:31 WBC RBC 3.30 L Hgb Hct MCV 98 H MCH 33 H RDW 15.6 H Eos % (Auto) Eos # (Auto) Seg Neuts % (Manual) Lymphocytes % (Manual) Seg Neutrophils # Man Lymphocytes # (Manual) APTT ABG pH POC ABG pCO2 POC ABG pO2 ABG pO2 ABG HCO3 ABG O2 Saturation ABG Base Excess ABG Hemoglobin Oxyhemoglobin Sodium 132 L Potassium Chloride Carbon Dioxide 20 L BUN Creatinine Glucose 131 H POC Glucose 124 H Calcium Phosphorus Magnesium C-Reactive Protein 29.40 H Total Protein Albumin Triglycerides 09/02/21 09/03/21 09/03/21 17:37 09:09 09:09 WBC 11.9 H RBC 2.99 L Hgb 9.5 L Hct 29.0 L MCV MCH RDW 15.6 H Eos % (Auto) Eos # (Auto) Seg Neuts % (Manual) Lymphocytes % (Manual) Seg Neutrophils # Man Lymphocytes # (Manual) APTT ABG pH POC ABG pCO2 POC ABG pO2 ABG pO2 ABG HCO3 ABG O2 Saturation ABG Base Excess ABG Hemoglobin Oxyhemoglobin Sodium 133 L Potassium Chloride Carbon Dioxide BUN 19 H Creatinine Glucose POC Glucose 108 H Calcium Phosphorus Magnesium C-Reactive Protein Total Protein Albumin Triglycerides 09/03/21 09/04/21 09/04/21 12:00 04:15 05:23 WBC RBC Hgb Hct MCV MCH RDW Eos % (Auto) Eos # (Auto) Seg Neuts % (Manual) Lymphocytes % (Manual) Seg Neutrophils # Man Lymphocytes # (Manual) APTT ABG pH POC ABG pCO2 POC ABG pO2 ABG pO2 ABG HCO3 ABG O2 Saturation ABG Base Excess ABG Hemoglobin Oxyhemoglobin Sodium 132 L Potassium 3.0 L Chloride Carbon Dioxide BUN Creatinine Glucose 113 H POC Glucose 64 L 109 H Calcium Phosphorus Magnesium C-Reactive Protein Total Protein Albumin 2.4 L Triglycerides 09/04/21 09/05/21 09/05/21 11:15 Unknown 23:59 WBC 12.1 H RBC 3.13 L Hgb 9.9 L Hct MCV MCH RDW Eos % (Auto) Eos # (Auto) Seg Neuts % (Manual) Lymphocytes % (Manual) Seg Neutrophils # Man Lymphocytes # (Manual) APTT ABG pH POC ABG pCO2 POC ABG pO2 ABG pO2 ABG HCO3 ABG O2 Saturation ABG Base Excess ABG Hemoglobin Oxyhemoglobin Sodium Potassium Chloride Carbon Dioxide BUN Creatinine Glucose 115 H POC Glucose 107 H Calcium Phosphorus Magnesium C-Reactive Protein Total Protein Albumin Triglycerides 09/06/21 09/06/21 09/06/21 04:00 04:00 05:38 WBC RBC 2.93 L Hgb 9.4 L Hct 28.6 L MCV 98 H MCH RDW 15.3 H Eos % (Auto) Eos # (Auto) Seg Neuts % (Manual) Lymphocytes % (Manual) Seg Neutrophils # Man Lymphocytes # (Manual) APTT ABG pH POC ABG pCO2 POC ABG pO2 ABG pO2 ABG HCO3 ABG O2 Saturation ABG Base Excess ABG Hemoglobin Oxyhemoglobin Sodium 135 L Potassium Chloride Carbon Dioxide 19 L BUN Creatinine 0.5 L Glucose 110 H POC Glucose 119 H Calcium Phosphorus Magnesium C-Reactive Protein Total Protein Albumin Triglycerides 09/06/21 09/06/21 09/06/21 12:04 16:13 23:42 WBC RBC Hgb Hct MCV MCH RDW Eos % (Auto) Eos # (Auto) Seg Neuts % (Manual) Lymphocytes % (Manual) Seg Neutrophils # Man Lymphocytes # (Manual) APTT ABG pH POC ABG pCO2 POC ABG pO2 ABG pO2 ABG HCO3 ABG O2 Saturation ABG Base Excess ABG Hemoglobin Oxyhemoglobin Sodium Potassium Chloride Carbon Dioxide BUN Creatinine Glucose POC Glucose 112 H 128 H 122 H Calcium Phosphorus Magnesium C-Reactive Protein Total Protein Albumin Triglycerides 09/07/21 09/07/21 09/07/21 04:47 06:00 06:00 WBC RBC 2.92 L Hgb 9.5 L Hct 28.2 L MCV MCH 33 H RDW Eos % (Auto) 5.7 H Eos # (Auto) 0.5 H Seg Neuts % (Manual) Lymphocytes % (Manual) Seg Neutrophils # Man Lymphocytes # (Manual) APTT ABG pH POC ABG pCO2 POC ABG pO2 ABG pO2 ABG HCO3 ABG O2 Saturation ABG Base Excess ABG Hemoglobin Oxyhemoglobin Sodium 136 L Potassium Chloride Carbon Dioxide BUN Creatinine Glucose 111 H POC Glucose 110 H Calcium 10.3 H Phosphorus Magnesium C-Reactive Protein Total Protein Albumin Triglycerides 09/07/21 09/07/21 09/07/21 12:14 16:13 23:38 WBC RBC Hgb Hct MCV MCH RDW Eos % (Auto) Eos # (Auto) Seg Neuts % (Manual) Lymphocytes % (Manual) Seg Neutrophils # Man Lymphocytes # (Manual) APTT ABG pH POC ABG pCO2 POC ABG pO2 ABG pO2 ABG HCO3 ABG O2 Saturation ABG Base Excess ABG Hemoglobin Oxyhemoglobin Sodium Potassium Chloride Carbon Dioxide BUN Creatinine Glucose POC Glucose 115 H 113 H 127 H Calcium Phosphorus Magnesium C-Reactive Protein Total Protein Albumin Triglycerides 09/08/21 09/08/21 09/08/21 05:11 11:50 15:55 WBC RBC Hgb Hct MCV MCH RDW Eos % (Auto) Eos # (Auto) Seg Neuts % (Manual) Lymphocytes % (Manual) Seg Neutrophils # Man Lymphocytes # (Manual) APTT ABG pH POC ABG pCO2 POC ABG pO2 ABG pO2 ABG HCO3 ABG O2 Saturation ABG Base Excess ABG Hemoglobin Oxyhemoglobin Sodium Potassium Chloride Carbon Dioxide BUN Creatinine Glucose POC Glucose 115 H 108 H 109 H Calcium Phosphorus Magnesium C-Reactive Protein Total Protein Albumin Triglycerides 09/09/21 09/09/21 09/09/21 01:31 05:24 12:11 WBC RBC Hgb Hct MCV MCH RDW Eos % (Auto) Eos # (Auto) Seg Neuts % (Manual) Lymphocytes % (Manual) Seg Neutrophils # Man Lymphocytes # (Manual) APTT ABG pH POC ABG pCO2 POC ABG pO2 ABG pO2 ABG HCO3 ABG O2 Saturation ABG Base Excess ABG Hemoglobin Oxyhemoglobin Sodium Potassium Chloride Carbon Dioxide BUN Creatinine Glucose POC Glucose 119 H 110 H 115 H Calcium Phosphorus Magnesium C-Reactive Protein Total Protein Albumin Triglycerides 09/09/21 09/09/21 09/10/21 16:38 23:37 04:35 WBC RBC 3.27 L Hgb Hct MCV MCH RDW Eos % (Auto) 5.2 H Eos # (Auto) 0.6 H Seg Neuts % (Manual) Lymphocytes % (Manual) Seg Neutrophils # Man Lymphocytes # (Manual) APTT ABG pH POC ABG pCO2 POC ABG pO2 ABG pO2 ABG HCO3 ABG O2 Saturation ABG Base Excess ABG Hemoglobin Oxyhemoglobin Sodium Potassium Chloride Carbon Dioxide BUN Creatinine Glucose POC Glucose 109 H 126 H Calcium Phosphorus Magnesium C-Reactive Protein Total Protein Albumin Triglycerides 09/10/21 09/10/21 04:35 04:56 WBC RBC Hgb Hct MCV MCH RDW Eos % (Auto) Eos # (Auto) Seg Neuts % (Manual) Lymphocytes % (Manual) Seg Neutrophils # Man Lymphocytes # (Manual) APTT ABG pH POC ABG pCO2 POC ABG pO2 ABG pO2 ABG HCO3 ABG O2 Saturation ABG Base Excess ABG Hemoglobin Oxyhemoglobin Sodium 136 L Potassium Chloride 95.8 L Carbon Dioxide BUN Creatinine Glucose 130 H POC Glucose 113 H Calcium 10.8 H Phosphorus Magnesium C-Reactive Protein Total Protein Albumin Triglycerides
--- NOTE | 2021-09-10 11:56 | Discharge Summary ---
Providers - Providers Date of Admission: 08/19/21 04:50 Date of discharge: 09/10/21 Attending physician: ROBERTH CHURCHILL 08/19/21 04:50 Consult to Physician [CONS] Routine Comment: Consulting Provider: PEÑA JENKINS Physician Instructions: Reason For Exam: Angioedema 08/25/21 14:00 Occupational Therapy Evaluate and Treat [CONS] Routine Comment: Reason For Exam: Debility Physical Therapy Evaluation and Treat [CONS] Routine Comment: Reason For Exam: Debility 08/25/21 14:18 Consult to Physician [CONS] Routine Comment: called office/ la Consulting Provider: DEDRICK MAYS Physician Instructions: Reason For Exam: Track/PEG eval 08/29/21 11:33 Occupational Therapy Evaluate and Treat [CONS] Routine Comment: Reason For Exam: debility 08/31/21 14:22 Occupational Therapy Evaluate and Treat [CONS] Routine Comment: Pt. with increased alertness & following commands Reason For Exam: Debility 09/01/21 11:21 Consult to Physician [CONS] Routine Comment: called office/ la Consulting Provider: JOSE COVARRUBIAS Physician Instructions: Reason For Exam: pcn allergy, pna on CT 09/02/21 17:31 Consult to Wound/ET Nurse [CONS] Routine Reason For Exam: wound eval on trach site 09/03/21 14:32 Consult to PICC Line RN [CONS] Routine Reason For Exam: tpn Type Line:: PICC 09/04/21 17:32 Consult to Dietitian/Nutrition [CONS] Routine Physician Instructions: Reason For Exam: Reason for Consult: Write/Manage Tube Feeding Primary care physician: DAVID MEJIAS Hospitalization Condition: Stable Hospital course: 76-year-old female patient with history of depression hypothyroidism, hypertension was admitted on 08/19/2021 with angioedema due to amlodipine intubated on 08/19/2021 stabilized and extubated on 08/25/2021 patient developed stridor and was reintubated on 08/26/2021 and subsequently underwent tracheostomy and PEG tube placement on 08/26/2021. Patient remains on trach tube with T- piece requiring 5 to 6 L O2, patient is requiring long-term weaning trial from trach. Patient is being discharged to LTAC for trach weaning. Brief history and daily hospital course; 08/19: Patient started on tube feedings, potassium repleted, started on Benadryl and propofol for sedation. SSI started. Air leak present today however due to swelling of the tongue we will hold off extubation. [facility] plans to try FFP in the a.m. if swelling not better. 08/20: Angioedema slightly better so we will hold off FFP today. Updated son at bedside but he did not know what medication she was taking and states that she has not had angioedema in the past. Patient still remains on Versed and propofol. Was given 500 mL bolus overnight for hypotension and will repeat for hypotension. 08/21: Leak test today at bedside with RT shows no leak and will give FFP today. Tongue looks a bit smaller today but given no leak, CCM will not extubate today. Sedated with propofol and versed. Son at bedside today. 08/22: RT performed leak test in the AM and stated there was a leak noted and placed the patient on CPAP. She was sedated on versed at 4 and propofol at 30 but these are off for CPAP. Will removed lewis. Received FFP yesterday. Angioedema is improved. Leak test performed again with Dr. Bailey and no leak audible. Switched back to AC and sedation restarted 08/23: Remains on the vent and sedated. Cuff leak assessed again today by [facility], still no significant air leak noted. Per CCM keep patient intubated and sedated and continue IV steroids and histamine therapy for now. Fentanyl gtt added, plan to wean off versed for RASS goal of 0 to -1. 08/24: Arousable and appropriate on the vent and on low dose sedation. No cuff leak again today per RT. D/W [facility] plan for CT neck w/o contrast for further eval. If CT neck normal, PSV trial and possible extubation tomorrow. 08/25: S/p extubation this am, audible stridor appreciated. S/p X2 doses of RaceEpi and IV solumedrol X1 dose. Patient currently stable on 4L NC, SPO2 at 94%. Patient is low threshold for re-intubation, case discussed with anesthesia in case of any decompensation. D/w CCM patient will need a trach if she is re intubated. Plan of care was thoroughly discussed with patient's son at the bedside by the laborer laboratory. All question and concerns were addressed at this time. 08/26: Reintubated yesterday due to stridor. General Surgery consulted, plan for possible trach and PEG today. Hypotension resolved this am most likely due to sedation for intubation, VSS today. Wean SPO2 as tolerated for SPO2 above 90%. Continue to monitor and replete electrolytes as needed. 08/27: s/p Trach and PEG overnight. Patient is stable on the vent this am, sedated on propofol and fentanyl. okay to use PEG-tube per general surgery, resume TF as ordered. PRN Analgesia added for pain control, wean off sedation as tolerated. Plan for possible PSV trial tomorrow. 08/28: Stable on the vent, still on sedation. Schedule tramadol and PRN fentanyl added for pain control, plan to wean sedation as tolerated. Possible PSV trial tomorrow if off sedation. PRN Xanax for anxiety. BR added for constipation. 08/29: Back on propofol from overnight due to increase anxiety. Patient is awake and calm this am, will D/C propofol and use PRN Xanax as needed for anxiety. Continue schedule tramadol and PRN fentanyl for pain control. Patient with increase secretion today, orally and via trach. Patient is also febrile with spike in WBCs, Chest XR ordered and will panculture. Hold off IV abx for now. Will also remove lewis catheter, straight/cath and bladder scan per protocol. 08/30: Ordered mag citrate today as suppositories do not yield any results yesterday, will start bladder training today. Remains afebrile. PSV per RT. 08/31: D/w Dr Jenkins, will attempt t peice trial for 24 hrs. Ultimately dispo for this patient will be SNF if able to tolerate trial. Paged in afternoon regarding projectile vomiting. No residual noted in PEG tube. KUB ordered. Will likely order Mag citrate as patient has not had BM. 09/01: This AM noted to have bleeding from trach site and peg tube noted to be misplaced with brown drainage. Dr. Mays alerted and came to bedside. RT states suture was removed from trach which stopped the bleeding. Neck and Abd/Pelvis CT ordered. Abd CT showed pef displacement and surgery contacted vascular surgery who will take the patient to IR. Stat CBC and BMP obtained. ID consulted re PCN allergy and sputum culture sent re concern for Pseudumonas in trach aspirate. meds changed to iv 09/02-patient seen at bedside. Awake-she reports coughing and asking for cough medicine. Pt is s/p peg placement. Pt is NPO and on gently IV fluid for hydration. Will start feeding per surgery. Reviewed lab and v/s. Patient not in acute distress. I discussed plan of care with Dr Jenkins-will restart tube feeding, Heprin subcutaneous, continue IV diflucan and f/u with ID reces for abx. Will continue PS [id number] T-piece tomorrow if patient is stable. 09/03: Patient having bilious drainage from PEG tube entrance site, awaiting surgery around. Started on mineral enemas, T-max 102, aztreonam IV, then discontinued, RN to monitor disimpact the patient. Patient will be started on TPN. PICC consult for PICC 09/04: Dr. Young recommends holding off tube feeds and she inflated the balloon for G-tube. Gastrografin x-ray completed which states PEG tube is in stomach without extravasation and tube feedings will be restarted. Continues on T- piece. No acute events reported overnight. MIVF continues. 09/05: Patient restarted on tube feedings overnight and has been tolerating, restarted p.o. medications. Per RN patient has had multiple large BMs. Patient is a tolerating T-piece and will be transferred to the floor today. 09/06: Awaiting placement to snf. d/w cm during rounds this am. 09/07; awaiting placement LTAC/SNF/rehab 09/08: Patient on 5 to 6 L O2 with T-piece. Discharge when medically stable and when placement is processed. 09/09: Had Peer to peer with insurance company today for LTAC placement. Patient currently on 5 to 6 L with T-piece which according to her insurance not a strong criteria for LTAC placement. Patient will be referred for [facility] placement by insurance, case worker updated. Continue current management and wean off from O2 as tolerated. 09/10: patient got accepted to LTAC and set up transportation by CM. Patient remains on trach with t-piece 5-6L O2. clinically stable for d/c. Completed levaquin and will cont fluconazole total 15 days for possible esophageal candidacies. Assessment and plan: Neuro: h/o depression -Restart home thiamine, multivitamin, Zoloft, BuSpar and as needed Xanax -Tramadol prn -Avoid delirium -Reorientation as needed -Maintain sleep-wake cycle -As needed analgesia Cardiac: h/o htn -Blood pressure monitoring per protocol -Hydralazine as needed -resume home antihypertenisve regimen when available and if needed Respiratory: Acute hypoxic respiratory failure, angioedema -[facility] consulted, appreciate recommendations -Intubated in the emergency department on 08/19 with 7.50 ETT at 24 the lips, extubated 08/25 but reintubated shortly after -s/p trach and peg 08/26 -T piece trials -VAP bundle -SPO2 monitoring -s/p Benadryl, Pepcid, Solu-Medrol GI: MO, malpositioned peg tube -s/p peg 08/26 -24 hours -300 mL -PPI -NTR consulted for tube feedings -BR: Senna,colace, miralax -08/29 suppository, 08/30 mag citrate, 08/31 lactulose q2 -CT abd/pelvis shows misposition of PEG -IR consult by surgery for replacement in IR lab under flouro -S/p 09/01 EGD, removal of PEG tube, laparoscopic exploration, lysis of adhesions, stable closure of gastrotomy site, placement of gastric tube 20 Maltese -Dr. Young replaced air to gtube balloon and gastrografen xray showed no extravastation on 09/04 -tolerating TF : Urinary retention -Strict intake and output -Renally dose medications -Avoid nephrotoxic medications -Daily weights -Trend BMP -Lewis reinserted -bladder scan and training ID: Sepsis/SIRS secondary to right lower lobe pneumonia, Intra-Op finding of esophageal candidiasis -Seen on CT A/P -ID consulted, appreciate recommendations -Per ID: Sputum culture growing usual respiratory david and aztreonam discontinued -Vancomycin discontinued as MRSA PCR negative -Antibiotic therapy: Levofloxacin for 5 days and fluconazole for 14 days -neg blood culture -Monitor WBC and temperature curve Endo: h/o hypothyroidism -continue synthroid -Avoid hypoglycemia -SSI -Accu-Cheks q. 6 Heme: Leukocytosis -Trend CBC -Transfuse hemoglobin less than 7 -Monitor for signs of bleeding -SCDs to BLE while in bed -heparin subq Disposition: 03 ALF FACILITY Final Discharge Diagnosis (Prints w/discharge instructions): --Acute hypoxic respiratory failure, angioedema. -- h/o depression. --h/o htn. --MO, malpositioned peg tube. --Urinary retention. --Sepsis/SIRS secondary to right lower lobe pneumonia, Intra-Op finding of esophageal candidiasis. --h/o hypothyroidism Time spent for discharge: 34 minutes Core Measure Documentation - Palliative Care Palliative Care/ Comfort Measures: Not Applicable - Core Measures Any of the following diagnoses?: none Exam - Physical Exam Narrative exam: General appearance: Present: no acute distress, well-nourished, obese, other (Tracheostomy on T-piece, 6 L saturating well) - EENT Eyes: Present: PERRL, EOM intact ENT: other (Tracheostomy in place) - Neck Neck: Present: supple, normal ROM - Respiratory Respiratory effort: normal Respiratory: bilateral: diminished, rhonchi, negative: rales, wheezing - Cardiovascular Rhythm: regular Heart Sounds: Present: S1 & S2 - Extremities Extremities: no ischemia, No edema - Abdominal General gastrointestinal: soft, non-tender, non-distended, normal bowel sounds - Integumentary Integumentary: Present: clear, warm - Psychiatric Psychiatric: appropriate mood/affect, cooperative - Neurologic Neurologic: moves all extremities - Constitutional Vitals: Temp Pulse Resp BP Pulse Ox 98.3 F 99 H 18 115/82 99 09/10/21 08:25 09/10/21 10:00 09/10/21 10:00 09/10/21 08:25 09/10/21 10:00 Plan Activity: fall precautions Weight Bearing Status: Weight Bear as Tolerated Diet: other (TF) Wound: keep clean and dry Additional Instructions: Continue fluconazole for 5 more days Follow up with: DAVID MEJIAS MD [Primary Care Provider] - 7 Days
== END 2021-09-10 12:35 | DRG 4 ==
LOC: ED 01:58 → CC1 04:50 → 4A 09-05 22:37
PROVIDERS: ADMIT Hospitalist; ATTEND Internal Medicine
PROC: 5A1955Z Respiratory Ventilation, Greater than 96 Consecutive Hours (ICD-10-PCS; principal; 2021-08-19)
PROC: 0BH17EZ Insertion of Endotracheal Airway into Trachea, Via Natural or Artificial Opening (ICD-10-PCS; 2021-08-19)
PROC: 4A033R1 Measurement of Arterial Saturation, Peripheral, Percutaneous Approach (ICD-10-PCS; 2021-08-19)
PROC: 30233P1 Transfusion of Nonautologous Frozen Red Cells into Peripheral Vein, Percutaneous Approach (ICD-10-PCS; 2021-08-21)
PROC: 0B113F4 Bypass Trachea to Cutaneous with Tracheostomy Device, Percutaneous Approach (ICD-10-PCS; 2021-08-26)
PROC: 0BJ08ZZ Inspection of Tracheobronchial Tree, Via Natural or Artificial Opening Endoscopic (ICD-10-PCS; 2021-08-26)
PROC: 0DH63UZ Insertion of Feeding Device into Stomach, Percutaneous Approach (ICD-10-PCS; 2021-09-01)
PROC: 02HV33Z Insertion of Infusion Device into Superior Vena Cava, Percutaneous Approach (ICD-10-PCS; 2021-09-03)
PROC: B548ZZA Ultrasonography of Superior Vena Cava, Guidance (ICD-10-PCS; 2021-09-03)
DX: T78.3XXA Angioneurotic edema, initial encounter (principal); A41.89 Other specified sepsis; J96.01 Acute respiratory failure with hypoxia; J18.9 Pneumonia, unspecified organism; B37.81 Candidal esophagitis; E03.9 Hypothyroidism, unspecified; E87.6 Hypokalemia; F29 Unspecified psychosis not due to a substance or known physiological condition; Z20.822 Contact with and (suspected) exposure to COVID-19; I10 Essential (primary) hypertension; Z90.49 Acquired absence of other specified parts of digestive tract; Z88.5 Allergy status to narcotic agent; Z88.0 Allergy status to penicillin; Z88.8 Allergy status to other drugs, medicaments and biological substances; Z82.49 Family history of ischemic heart disease and other diseases of the circulatory system; F32.A Depression, unspecified; R33.9 Retention of urine, unspecified; Y92.89 Other specified places as the place of occurrence of the external cause
CPT/HCPCS: 31500; 36415; 36600; 70490; 71045; 74018; 74176; 80048; 80053; 82803; 82805; 82962; 83735; 84100; 84145; 84478; 85007; 85025; 85027; 85610; 85730; 86140; 86900; 86901; 87040; 87070; 87205; 87641; 88305; 88307; 94002; 94003; 94640; 94760; 96361; 96374; 96375; 99291; G0378; J1815; J2354; J3490; J7070; J7121; J7510; Q9967; J0330; J0360; J1100; J1200; J1450; J1630; J1644; J1885; J1956; J2060; J2250; J2270; J2405; J2704; J2930; J3010; J3370; J3480; J7030; J7040; J7050; P9017; Q9963